=== PATIENT | female | born 1955 | race Caucasian/White ===

== ENCOUNTER 2023-07-13 10:22 | Emergency (ER) | payer MEDICARE, SELFPAY ==
[2023-07-13 10:35] VITALS: BP 135/73; PULSE 96; RESP 18; TEMP 36.9; O2SAT 94; BMI 31.5
--- NOTE | 2023-07-13 10:49 | XR_ITS ---
The [address] [address] Patient Name: ALYCE DAVID MRN: [id number] date: 1955 Sex: F Assigned Patient Location: ER Current Patient Location: ER Accession/Order Number: [id number] Exam Date: 07/13/2023 11:00 Report Date: 07/13/2023 11:57 At the request of: KELSEA SOSA Procedure: XR foot RT min 3V HISTORY: Pain and bruising of the right great toe since an injury 3 weeks ago. XR foot RT min 3V: 07/13/2023 11:00 AM EST COMPARISON: Radiographs right foot 02/22/2020 obtained at [facility]. FINDINGS: A hallux valgus deformity is again seen with mild osteoarthritis of the first MTP joint and first metatarsal-sesamoid joints. A large plantar calcaneal enthesophyte is again seen. 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 There is a large amount of soft tissue swelling of the first toe. However, no fracture or dislocation is seen. There appears to be probable dorsal lifting of the first toenail with probable underlying soft tissue gas in this region. There are moderate degenerative changes again seen at the calcaneocuboid joint. There is an accessory navicular bone again seen. XR/XR foot RT min 3V IMPRESSION: 1. There is a large amount of soft tissue swelling of the first toe, but no acute fracture or dislocation is seen. 2. There appears to be probable dorsal lifting of the first toenail with probable underlying soft tissue gas in this region and this is most likely secondary to an injury of the toenail, but correlation with physical examination is recommended. Electronically authenticated by: MIGUELANGEL TRAN Date: 07/13/2023 11:57
--- NOTE | 2023-07-13 10:49 | XR_ITS ---
[address] [address] Patient Name: ALYCE DAVID MRN: [id number] date: 1955 Sex: F Assigned Patient Location: ER Current Patient Location: ER Accession/Order Number: [id number] Exam Date: 07/13/2023 11:00 Report Date: 07/13/2023 11:55 At the request of: KELSEA SOSA Procedure: XR humerus RT EXAM: XR humerus RT INDICATION: fall. COMPARISON: None. TECHNIQUE: Left humerus, 2 views FINDINGS: No acute fracture or dislocation. Grossly intact left shoulder and left elbow joints. Unremarkable soft tissues. XR/XR humerus RT IMPRESSION: No acute osseous abnormality of the left humerus. Electronically authenticated by: WILSON MAYA Date: 07/13/2023 11:55
--- NOTE | 2023-07-13 10:49 | XR_ITS ---
The [address] [address] Patient Name: ALYCE DAVID MRN: [id number] date: 1955 Sex: F Assigned Patient Location: ER Current Patient Location: ER Accession/Order Number: [id number] Exam Date: 07/13/2023 11:00 Report Date: 07/13/2023 11:58 At the request of: KELSEA SOSA Procedure: XR shoulder LT min 2V EXAM: XR shoulder LT min 2V HISTORY: fall COMPARISON: None. TECHNIQUE: Internal rotation and external rotation and scapular Y radiographs of the shoulder labeled left FINDINGS: No acute fracture or dislocation. Mild degenerative changes of the acromioclavicular joint. Normal mineralization. XR/XR shoulder LT min 2V IMPRESSION: 1. No acute fracture or dislocation. 2. Mild acromioclavicular joint degenerative change. Electronically authenticated by: LAINA HARTLEY Date: 07/13/2023 11:58
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
[2023-07-13 11:05] LABS: Basophils Absolute Auto 0.1 10^3/uL (0.0-0.1); Basophils Percent Auto 1.2 % (0.2-2.0); Eosinophils Absolute Auto 0.1 10^3/uL (0.0-0.7); Eosinophils Percent Auto 2.2 % (0.9-7.0); Hematocrit 29.9 % (36.0-48.0); Hemoglobin 9.2 g/dL (12.0-16.0); Immature Granulocytes Abs Auto 0.03 10^3/uL (0.00-0.03); Immature Granulocytes Pct Auto 0.7 % (0.0-0.5); Lymphocytes Absolute Auto 0.9 10^3/uL (1.2-3.8); Lymphocytes Percent Auto 22.7 % (20.5-60.0); Mean Corpuscular HGB Conc 30.8 g/dL (29.9-35.2); Mean Corpuscular Hemoglobin 28.5 pg (26.7-34.0); Mean Corpuscular Volume 92.6 fL (81.0-99.0); Mean Platelet Volume 10.4 fL (9.5-13.5); Monocytes Absolute Auto 0.4 10^3/uL (0.3-0.8); Monocytes Percent Auto 8.5 % (1.7-12.0); Neutrophils Absolute Auto 2.7 10^3/uL (1.4-6.5); Neutrophils Percent Auto 64.7 % (43.0-75.0); Platelet Count 120 10^3/uL (150-450); Red Blood Count 3.23 10^6/uL (4.20-5.40); Red Cell Distribution Width 18.6 % (11.0-15.0); White Blood Count 4.1 10^3/uL (4.0-11.0)
[2023-07-13 11:12] LABS: Anion Gap 16.6; BUN Creatinine Ratio 19.5; Calcium 8.3 mg/dL (8.5-10.1); Carbon Dioxide 25.7 mmol/L (21.0-32.0); Chloride 103 mmol/L (98-107); Estimated GFR (African America >60 (>=60); Estimated GFR (Non-African Ame >60 (>=60); Glucose 160 mg/dL (74-106); Potassium 3.3 mmol/L (3.5-5.1); Sodium 142 mmol/L (136-145)
[2023-07-13 13:19] VITALS: BP 119/54; PULSE 82; RESP 22; O2SAT 93
== END 2023-07-13 12:42 | disposition home or self-care (01) ==
PROVIDERS: Emergency Provider Emergency Medicine
DX: L03.031 Cellulitis of right toe (principal)
CPT/HCPCS: 36415; 73030; 73060; 73630; 80048; 85025; 99284

== ENCOUNTER 2023-08-31 22:50 | Emergency (ER) | payer MEDICARE, SELFPAY ==
[2023-08-31 22:57] VITALS: BP 132/74; PULSE 71; RESP 16; TEMP 37; O2SAT 96; BMI 29.2
--- OUTSIDE RECORDS SUMMARY | 2023-08-31 23:01 | XMS_ITS | CCD ---
Author Name Unknown Address [address] [place] [address] Organization [facility] Care Team Providers Care Planner Chief Name Role Phone Unavailable Primary Care Provider AYSHA Mckeon Primary Care Physician MD Aysha Clements Primary Care Provider DO Remy Motley Emergency Provider MD Tye Subramanian Admit Provider MD Tye Subramanian Attending Provider Aysha Clements Primary Care Unavailable Tye Subramanian Admitting Unavailable Tye Subramanian Attending Unavailable Matthew Laird Attending Aysha Yip Primary Care Unavailable Matthew Laird Admitting Matthew Wall Attending Aysha Yip Primary Care Unavailable Emanuel Clark Consulting Unavailable Kirstie Scott Admitting Unavailable Dottie Cade Consulting Unavailable Liliana Willett Unavailable Allergies Allergy Classification Reported Allergen(s) Allergy Type Date of Onset Reaction(s) Facility (2 sources) amLODIPine; Translations: [amlodipine] Drug Allergy unknown [facility] Fredo (1 source) amLODIPine Drug Allergy 06-01-2022 [facility] Repository Medications Current Medications Medication Drug Class(es) Dates Sig (Normalized) Sig (Original) acetaminophen 325 mg oral tablet (4 sources) Start: 09-29-2021 take 650 mg by mouth every six hours Acetaminophen Active 650 MG PO Every 6 hours 0 September 29, 2021 12:00am take 2 tablets by mo ut every six hours as needed acetaminophen (TYLENOL) 325 mg tablet Ta ke 650 mg by mouth every 6 hours as needed. 0 Active Comment on above: Take 650 mg by mouth every 6 hours as needed. allopurinol 300 mg oral tablet (5 sources) Xanthine Oxidase Inhibitor Start: 09-28-2021 take 1 mg by mouth once daily allopurinol 300 mg Tab mg tab(s), Oral, Daily, Refills(s) 0 Start Date: 09/28/21 Status: Ordered Start: 03-24-2020 take 300 mg by mouth once yovani y Allopurinol Active 300 MG PO Daily March 23, 2020 11:00pm take 1 tablet by neo th once daily allopurinol (ZYLOPRIM) 100 mg tablet Take 100 mg by mouth once daily. 0 Active Comment on above: Take 100 mg by mouth once daily. Take 300 mg by mouth once daily. amoxicillin 875 mg / clavulanate 125 mg oral tablet (1 source) Penicillin-class Antibacterial Start: 2 take 1 tablet by mouth every twelve hours Augmentin 875 mg oral tablet = 1 tab(s), Oral, q12hr, # 2 tab(s), Refills(s) 0, Pharmacy: [address], 160, cm, 10/18/21 8:22:00 EDT, Height/Length Dosing, 77.2, kg, 10/18/21 8:22:00 EDT, Weight Dosing Start Date: 10/18/21 Status: Ordered atenolol 50 mg oral tablet (6 sources) beta-Adrenergic Lupe Start: 0 take 1 mg by mouth once daily atenolol 50 mg Tab mg tab(s), Oral, Daily, Refills(s) 0 Start Date: 09/28/21 Status: Ordered take 1 tablet by mouth once yovani y atenolol (TENORMIN) 100 mg tablet Take 100 mg by mouth once daily. 0 Active Comment on above: Take 50 mg by mouth once daily. Take 100 mg by mouth once daily. atorvastatin 40 mg oral tablet (3 sources) HMG-CoA Reductase Inhibitor Start: 020 take 1 mg by mouth once daily atorvastatin 40 mg Tab mg tab(s), Oral, Daily, Refills(s) 0 Start Date: 09/28/21 Status: Ordered cephalexin 500 mg oral capsule (1 source) Cephalosporin Antibacterial Start: take 1 capsule by mouth every eight hours Cephalexin 500 MG 1 capsule Orally tid for 10 day(s) Jul, Active cholecalciferol 0.01 mg oral tablet (1 source) Vitamin D Start: take 1 tablet by mouth twice daily at mealtime Cholecalciferol (Vitamin D3) (Vitamin D3) 10 mcg (400 unit) Tablet Active 20 MCG PO Twice daily with meals 120 September 29, 2021 12:00am doxepin hydrochloride 10 mg oral capsule (1 source) Tricyclic Antidepressant Start: take 10 mg by mouth once daily at bedtime Doxepin Active 10 MG PO Daily at bedtime June 01, 2022 12:00am ferrous sulfate 325 mg delayed release oral tablet (5 sources) Start: take 1 mg by mouth once daily ferrous sulfate 325 mg oral enteric coated tablet mg tab(s), Oral, Daily, Refills(s) 0 Start Date: 09/28/21 Status: Ordered Start: 03-24-2020 take 325 mg by mouth once Ferr ous Sulfate Active 325 MG PO every Friday, Friday, and Monday March 23, 2020 11:00pm Comment on above: Take 325 mg by mouth daily with breakfast. hydrOXYzine hydrochloride 25 mg oral tablet (6 sources) Antihistamine Start: 09-29-19 take 1 mg by mouth four times daily hydrOXYzine hydrochloride 25 mg Tab mg tab(s), Oral, QID, Refills(s) 0 Start Date: 09/28/21 Status: Ordered Start: 03-24-2020 take 25 mg by mouth three to four times daily Hydroxyzine Hcl Active 25 MG PO 3-4 TIMES DAILY March 23, 2020 11:00pm hydrOXYzine HCl 25 MG take 1 tablet by mouth every 8 to 12 hours if needed for anxiety Oral for 20 Active take 1 capsule by [facility] every eight hours as needed hydrOXYzine pamoate (VISTARIL) 25 mg capsule Take 25 mg by mouth three times daily as needed. 0 Active Comment on above: Take 25 mg by mouth three times daily as needed. ibuprofen 200 mg oral capsule (4 sources) Nonsteroidal Anti-inflammatory Drug Start: 03-24-2020 take 200 mg by mouth once daily Ibuprofen Active 200 MG PO Daily March 23, 2020 11:00pm Ibuprofen 200 mg cap Take by mouth every 6 hours as needed. 0 Active Comment on above: Take by mouth every 6 hours as needed. Iron (1 source) Iron Active levothyroxine sodium 0.125 mg oral tablet (1 source) l-Thyroxine take 1 tablet by mouth once daily in the morning Levothyroxine Sodium 125 MCG 1 tablet in the morning on an empty stomach Orally Once a day Active lisinopril 20 mg oral tablet (3 sources) Angiotensin Converting Enzyme Inhibitor Start: 09-29-19 take 1 tablet by mouth twice daily lisinopril 20 mg Tab 20 mg = 1 tab(s), Oral, BID, Refills(s) 0 Start Date: 09/28/21 Status: Ordered Start: 03-24-2020 End: 06-01-2022 take 1 tablet by mouth once daily in the morning, then take 0.5 tablet by mouth in the evening Lisinopril Discontinued 20 MG PO Twice daily March 23, 2020 11:00pm June 01, 2022 7:15am 1 tablet qam, 1/2 tab in pm magnesium oxide 400 mg oral tablet (5 sources) Start: 06-01-2022 take 400 mg by mouth twice daily Magnesium Oxide Active 400 MG PO Twice daily June 01, 2022 7:16am Start: 09-29-2021 End: 06-01-2022 take 400 mg by mouth once daily Magnesium Oxide Discontinued 400 MG PO Daily September 29, 2021 12:00am June 01, 2022 7:16am Comment on above: Take 400 mg by mouth once daily. omeprazole 20 mg delayed release oral capsule (1 source) Proton Pump Inhibitor take 1 capsule by mouth once daily Omeprazole 20 MG 1 capsule 30 minutes before morning meal Orally Once a day for 30 day(s) Active potassium chloride 20 meq extended release oral tablet (5 sources) Start: 06-01-2022 take 20 mEq by mouth once daily Potassium Chloride Active 20 MEQ PO Daily June 01, 2022 12:00am Start: 09-29-2021 End: 06-01-2022 take 8 mEq by mouth once daily Potassium Chloride Disc ontinued 8 MEQ PO Daily September 29, 2021 12:00am June 01, 2022 7:14am Comment on above: Take by mouth once d aily. Completed/Discontinued Medications Medication Drug Class(es) Dates Sig (Normalized) Sig (Original) acetaminophen 325 mg / HYDROcodone bitartrate 5 mg oral tablet (1 source) Opioid Agonist Start: 03-24-2020 End: 09-25-2021 take 1 tablet by mouth three times daily as needed for pain Hydrocodone-Acetam inophen Discontinued 5 - 325 TAB PO As Directed March 23, 2020 11:00pm September 25, 2021 9:23pm TID prn pain cholecalciferol, vitamin D3, (VITAMIN D3 ORAL) (3 sources) cholecalciferol, vitamin D3, (VITAMIN D3 ORAL) Take by mouth. 0 Active Comment on above: Take by mouth. doxycycline hyclate 100 mg oral capsule (2 sources) Tetracycline-class Drug Start: 10-15-2021 take 1 capsule by mouth twice daily doxycycline hyclate (VIBRAMYCIN) 100 mg capsule take 1 capsule by mouth twice a day for 7 days 0 10/15/2021 Active Comment on above: take 1 capsule by mo [facility] twice a day for 7 days guaifenesin/pseudoep hedrne HCl (MUCINEX D MAXIMUM STRENGTH ORAL) (1 source) guaifenesin/pseu do ephedrne HCl (MUCINEX D MAXIMUM STRENGTH ORAL) Take by mouth twice daily. 0 Active Comment on above: Take by mouth twice daily. hydrALAZINE hydrochloride 25 mg oral tablet (4 sources) Arteriolar Vasodilator Start: 09-29-2021 End: 06-01-2022 take 25 mg by mouth twice daily Hydralazine Discontinued 25 MG PO Twice daily 60 September 29, 2021 12:00am June 01, 2022 7:15am take 1 tablet by neo three times daily hydrALAZINE (APRESOLINE) 25 mg tablet Ta ke 25 mg by mouth three times daily. 0 Active Comment on above: Take 25 mg by mouth three times daily. hydroCHLOROthiazide 25 mg oral tablet (4 sources) Thiazide Diuretic Start: 022 End: 022 take 25 mg by mouth once daily Hydrochlorothiazide Discontinued 25 MG PO Daily September 25, 2021 12:00am September 29, 2021 1:01pm Comment on above: Take 25 mg by mouth once daily. 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 Deficiency and other anemia (2 sources) Normocytic anemia; Translations: [Anemia, unspecified] Episodic Deficiency and other anemia (2 sources) Anemia; Translations: [Anemia, unspecified] 09-28-2021 Episodic Diseases of white blood cells (1 source) Leukocytosis; Translations: [Elevated white blood cell count, unspecified] Chronic Disorders of lipid metabolism (1 source) Hypercholesterolemia 09-28-2021 Chronic Essential hypertension (1 source) Hypertensive disorder 09-28-2021 Chronic Fluid and electrolyte disorders (2 sources) Hypervolemia; Translations: [Fluid overload, unspecified] 09-25-2021 Episodic Gastritis and duodenitis (1 source) Atrophic gastritis; Translations: [Unspecified chronic gastritis without bleeding] Chronic Gout and other crystal arthropathies (1 source) Gout 09-28-2021 Chronic Mood disorders (2 sources) Depressive disorder; Translations: [Depression] 06-01-2022 Chronic Mood disorders (1 source) Mood disorders; Translations: [Depression, unspecified] Onset: 2 Other connective tissue disease (1 source) Muscle weakness of limb; Translations: [Other symptoms and signs involving the musculoskeletal system] 09-26-2021 Episodic Other connective tissue disease (1 source) Recurrent falls ; Translations: [Repeated falls] 09-26-2021 Episodic Other diseases of bladder and urethra (1 source) Bladder-neck obstruction; 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] Onset: 2 Chronic Other diseases of kidney and ureters (2 sources) Hydronephrosis; Translations: [Unspecified hydronephrosis] 09-28-2021 Episodic Other injuries and conditions due to external causes (1 source) Unspecified injury of right foot, sequela Episodic Other lower respiratory disease (1 source) Cough; Translations: [Cough] Episodic Other nervous system disorders (1 source) Difficulty walking; Translations: [Difficulty in walking, not elsewhere classified] 09-26-2021 Chronic Other nervous system disorders (1 source) Difficulty in walking, not elsewhere classified; Translations: [R26.2 - Difficulty in walking, not elsewhere classified] Onset: 2 Chronic Other nutritional; endocrine; and metabolic disorders (1 source) Body mass index 30+ - obesity 10-18-2021 Chronic Other nutritional; endocrine; and metabolic disorders (1 source) Hypomagnesemia; Translations: [Hypomagnesemia] 09-25-2021 Chronic Other nutritional; endocrine; and metabolic disorders (1 source) Hypocalcemia; Translations: [Hypocalcemia] 09-25-2021 Chronic Other nutritional; endocrine; and metabolic disorders (1 source) Hypomagnesemia; Translations: [E83.42 - Hypomagnesemia] Onset: 2 Chronic Other screening for suspected conditions (not mental disorders or infectious disease) (1 source) Prothrombin time increased; Translations: [Abnormal coagulation profile] Episodic Other skin disorders (1 source) Eruption; Translations: [Rash and other nonspecific skin eruption] Episodic Respiratory failure; insufficiency; arrest (adult) (1 source) Respiratory failure; insufficiency; arrest (adult); Translations: [N17.9 - Acute kidney failure, unspecified] Onset: 2 Skin and subcutaneous tissue infections (1 source) Local infection of the skin and subcutaneous tissue, unspecified Episodic Unclassified (1 source) E87.6 - Hypokalemia; Translations: [E87.6 - Hypokalemia] Onset: 2 Urinary tract infections (2 sources) Urinary tract infectious disease; Translations: [Urinary tract infection, site not specified] Onset: 2 Episodic Past or Other Problems Problem Classification Problem Date Documented Date Episodic/Chronic Acute and unspecified renal failure (2 sources) Injury of kidney; Translations: [Acute kidney failure, unspecified] Onset: 09-25-2021 09-27-2021 Episodic Deficiency and other anemia (1 source) Anemia, unspecified; Translations: [D64.9 - Anemia, unspecified] Onset: 10-09-2021 Episodic Genitourinary symptoms and ill-defined conditions (5 sources) Retention of urine; Translations: [Other retention of urine] Onset: 09-25-2021 Episodic Malaise and fatigue (2 sources) Asthenia; Translations: [Weakness] Onset: 09-25-2021 09-25-2021 Episodic Other connective tissue disease (1 source) Other symptoms and signs involving the musculoskeletal system; Translations: [R29.898 - Other symptoms and signs involving the musculoskeletal system] Onset: 09-25-2021 Episodic Other connective tissue disease (1 source) Repeated falls; Translations: [R29.6 - Repeated falls] Onset: 09-25-2021 Episodic Other diseases of kidney and ureters (1 source) Unspecified hydronephrosis; Translations: [N13.30 - Unspecified hydronephrosis] Onset: 09-25-2021 Episodic Results Test Name Value Interpretation Reference Range Facility Glucose - [facility] Glucose [Mass/Vol] 133 mg/dL [employer] Other Albumin [Mass/volume] in Ser um or PlasmaOrdered By: Remy Motley on 06-01-2022 Albumin [Mass/Vol] 3.8 g/dL 3.2-5.5 [facility] Amphetamine Screen Ql (U)Ord ered By: Remy Motley on 06-01-2022 Amphetamines Ql (U) Negative Negative [facility] Automated erythrocytes count in urine sediment (number/area)Ordered By: Remy Motley on 06-01-2022 RBC Auto (Urine sed) [#/Area] 0-1 [HPF] 0-4 [facility] Automated leukocytes count i n urine sediment (number/area)Ordered By: Remy Motley on 06-01-2022 WBC Auto (Urine sed) [#/Area] 3-4 [HPF] 0-4 [facility] Barbiturates [Presence] in U rineOrdered By: Remy Motley on 06-01-2022 Barbiturates Ql (U) Negative Negative [facility] Basophils Auto (Bld) [#/Vol] Ordered By: Remy Motley on 06-01-2022 Basophils (Bld) [#/Vol] 0.1 10*3/uL 0.0-0.2 [facility] Basophils/100 WBC Auto (Bld) Ordered By: Remy Tiesha on 06-01-2022 Basophils/100 WBC (Bld) 1.2 % . F [facility] Benzodiazepines [Presence] i n UrineOrdered By: Remy Tiesha on 06-01-2022 Benzodiazepines Ql (U) Negative Negative Fi [facility] Bilirubin Test strip Ql (U)O rdered By: Remy Tiesha on 06-01-2022 Bilirubin Ql (U) Negative Negative [facility] COVID-19 Antigenon 2 COVID-19 Antigen Healthcare Worker?: N Reference Range: Negative Negative results, from patients with symptom onset beyond five days, should be treated as presumptive and confirmation with a molecular assay, if necessary, for patient management, may be performed. Negative results do not rule out COVID-19 and should not be used as the sole basis for treatment or patient management decisions, including infection control decisions. Negative results should be considered in the context of a patient's recent exposures, history and the presence of clinical signs and symptoms consistent with COVID-19. The Kate SARS Antigen MY does not differentiate between SARS-CoV and SARS-CoV-2. This test was developed and its performance characteristic determined by [employer] and validated at [facility]. This test has not been FDA cleared or approved. This test has been authorized by FDA under an Emergency Use Authorization (EUA). This test has been validated in accordance with the FDA's Guidance Document (Policy for Diagnostics Testing in Laboratories Certified to Perform High Complexity Testing under CLIA prior to Emergency Use Authorization for Coronavirus Disease-2019 during the Public Health Emergency) issued on October 21, 2019. This test is only authorized for the duration of time the declaration that circumstances exist justifying the authorization of the emergency use of in vitro diagnostic tests for detection of SARS-CoV-2 virus and/or diagnosis of COVID-19 infection under section 564(b)(1) of the Act, 21 U.S.C. 360bbb-3(b)(1), unless the authorization is terminated or revoked sooner. SARS-CoV+SARS-CoV-2 (COVID-19) Ag [Presence] in Respiratory specimen by Rapid immunoassay Negative for SARS Antigen by MY PERFORMED BY: [place] [address] PATHOLOGIST ACCOUNTING PRACTICE MANAGER IDANIA WHITESIDE M.D. Normal [facility] Comment on above: Performed By: #### T SH3 wRFLX, T4F, LIPID, [id number] #### [facility] [address] [place] [address] [place] COVID-19 SOFIAOrdered By: Coleman Motley on 06-01-2022 SARS-CoV+SARS-CoV-2 (COVID-19) Ag IA.rapid Ql (Resp) Negative Negative [facility] Comment on above: This is a duplicate Kate SARS Antigen (MY) result to be used for statistical tracking purpose only. Cannabinoids [Presence] in U rine by Screen methodOrdered By: Remy Motley on 06-01-2022 Cannabinoids Screen Ql (U) Negative Negative [facility] Comment on above: These are unconfirme d results and should not be used for legal purposes. Drug Cut-Off Concentration: AMPH 1000 ng/mL NENITA 200 ng/mL SWETA 200 ng/mL COCM 300 ng/mL OP 300 ng/mL PCP 25 ng/mL THC 20 ng/mL Color Auto (U)Ordered By: Coleman Motley on 06-01-2022 Color (U) Yellow Yellow [facility] Complete Blood Count Auto Di ffon 06-01-2022 Basophils (Bld) [#/Vol] 0.1 10*3/uL Normal 0.0-0.2 [facility] Comment on above: Result Comment: PERF ORMED BY: [place] [address] PATHOLOGIST ACCOUNTING PRACTICE MANAGER IDANIA WHITESIDE M.D. Performed By: #### C OVID 19 [facility] [place] #### [place] [address] [place] Basophils/100 WBC (Bld) 1.2 % Normal . F [facility] Comment on above: Performed By: #### C OVID 19 [facility] [place] #### [place] [address] [place] Eosinophils (Bld) [#/Vol] 0.2 10*3/uL Normal 0.0-0.45 [facility] Comment on above: Performed By: #### C [address] #### [facility] [address] Eosinophils/100 WBC (Bld) 3.3 % Normal . [facility] Comment on above: Performed By: #### C [address] #### [address] Erythrocyte distribution width (RBC) [Ratio] 13.5 % Normal 11.9-15.3 [facility] Comment on above: Performed By: #### C [address] #### [address] Hematocrit (Bld) [Volume fraction] 38.3 % Normal 34.0-46.4 [facility] Comment on above: Performed By: #### C [address] #### [address] Hemoglobin (Bld) [Mass/Vol] 12.8 g/dL Normal 11.8-15.4 [facility] Comment on above: Performed By: #### C [address] #### [address] Lymphocytes (Bld) [#/Vol] 1.7 10*3/uL Normal 1.00-4.8 [facility] Comment on above: Performed By: #### C [address] #### [address] Lymphocytes/100 WBC (Bld) 32.3 % Normal . [facility] Comment on above: Performed By: #### C [address] #### [address] MCH (RBC) [Entitic mass] 32.8 pg Normal 24.7-34.3 [facility] Comment on above: Performed By: #### C [address] #### [address] MCV (RBC) [Entitic vol] 98.2 fL Normal 80-100 F [facility] Comment on above: Performed By: #### C [address] #### [facility] [address] Mean Corpuscular HGB Conc 33.4 g/dL Normal 32.0-35.0 [facility] Comment on above: Performed By: #### C [address] #### [facility] [address] [place] [address] [place] Monocytes (Bld) [#/Vol] 0.5 10*3/uL Normal 0.0-0.8 [facility] Comment on above: Performed By: #### C [address] #### [facility] [address] Monocytes/100 WBC (Bld) 9.6 % Normal . F [facility] Comment on above: Performed By: #### C [address] #### [facility] [address] Neutrophils (Bld) [#/Vol] 2.9 10*3/uL Normal 1.8-7.7 [facility] Comment on above: Performed By: #### C [address] #### [address] Neutrophils/100 WBC (Bld) 53.6 % Normal . [facility] Comment on above: Performed By: #### C [address] #### [facility] [address] [place] [address] [place] Nucleated RBC/100 WBC (Bld) [Ratio] 0.1 % Normal 0-0.5 [facility] Comment on above: Performed By: #### C [address] #### [facility] [address] Platelet mean volume (Bld) [Entitic vol] 7.6 fL Normal 6.3-10.7 [facility] Comment on above: Performed By: #### C [address] #### [facility] [address] [place] [address] [place] Platelets (Bld) [#/Vol] 179 10*3/uL Normal 150-450 [facility] Comment on above: Performed By: #### C [address] #### [facility] [address] RBC (Bld) [#/Vol] 3.90 10*6/uL Normal 3.60-5.00 [facility] Comment on above: Performed By: #### C [address] #### [facility] [address] WBC (Bld) [#/Vol] 5.4 10*3/uL Normal 4.5-11.0 [facility] Comment on above: Performed By: #### C [address] #### [address] Comprehensive Metabolic Pane huber 06-01-2022 Albumin [Mass/Vol] 3.8 g/dL Normal 3.2-5.5 [facility] Comment on above: Performed By: #### C [address] #### [facility] [address] [place], [place] [id number] [facility] Albumin/Globulin [Mass ratio] 1.1 {ratio} Normal [facility] Comment on above: Performed By: #### C [address] #### [facility] [address] [place] [address] ALP [Catalytic activity/Vol] 98 U/L High 32-92 [facility] Comment on above: Performed By: #### C [address] #### [facility] [address] [place], [place] [id number] [facility] ALT [Catalytic activity/Vol] 54 U/L Normal 10-60 [facility] Comment on above: Performed By: #### C [address] #### [address] Anion gap [Moles/Vol] 12.4 mmol/L Normal 6.0-15.0 [facility] Comment on above: Performed By: #### C [address] #### [address] [place] [address] [place] AST [Catalytic activity/Vol] 100 U/L High 10-42 [facility] Comment on above: Performed By: #### C OVID 19 [facility] [place] #### [facility] [address] Bilirubin [Mass/Vol] 0.6 mg/dL Normal 0.3-1.2 [facility] Comment on above: Performed By: #### C OVID 19 [facility] [place] #### [facility] [address] Calcium [Mass/Vol] 8.6 mg/dL Normal 8.2-10.2 [facility] Comment on above: Performed By: #### C CATSKILL 19 [facility] [place] #### [facility] [address] Chloride [Moles/Vol] 100 mmol/L Normal 95-114 [facility] Comment on above: Performed By: #### C OVID 19 [facility] [place] #### [facility] [address] CO2 [Moles/Vol] 23.8 mmol/L Normal 22.0-30.0 [facility] Comment on above: Performed By: #### C [address] #### [facility] [address] Creatinine [Mass/Vol] 0.70 mg/dL Normal 0.44-1.03 [facility] Comment on above: Performed By: #### C OVID 19 [facility] [place] #### [facility] [address] [place] [address] [place] Creatinine Clr Calc Pharmacy 71.02 [facility] Comment on above: Result Comment: PERF ORMED BY: [place] [address] PATHOLOGIST ACCOUNTING PRACTICE MANAGER IDANIA WHITESIDE M.D. Performed By: #### C OVID 19 [facility] [place] #### [place] [address] [place] Estimated GFR ( Radha > 60 Normal [facility] Comment on above: Result Comment: GFR estimated reference range: According to KDOQI guidelines, <60 ml/min/1.73m2 is sufficient to diagnose a patient with chronic kidney disease. Performed By: #### C CATSKILL 19 [facility] [place] #### [facility] [address] Estimated GFR (Non- Am > 60 Normal [facility] Comment on above: Performed By: #### C CATSKILL 19 [facility] [place] #### [facility] [address] [place] [id number] [facility] Globulin (S) [Mass/Vol] 3.4 g/dL Normal F [facility] Comment on above: Performed By: #### C CATSKILL 19 [facility] [place] #### [address] Glucose [Mass/Vol] 138 mg/dL High 70-100 [facility] Comment on above: Result Comment: [place] Glucose Reference Range is dependent on time and content of last meal. Glucose of more than 200 mg/dL in a nonstressed, ambulatory subject supports the diagnosis of Diabetes Mellitus. ADA recommended reference range Performed By: #### C CATSKILL 19 [facility] [place] #### [place] [id number] [facility] Potassium [Moles/Vol] 4.2 mmol/L Normal 3.5-5.1 [facility] Comment on above: Performed By: #### C CATSKILL 19 [facility] [place] #### [place] [id number] [facility] Protein [Mass/Vol] 7.2 g/dL Normal 6.1-7.9 [facility] Comment on above: Performed By: #### C CATSKILL 19 [facility] [place] #### [place] [id number] [facility] Sodium [Moles/Vol] 132 mmol/L Low 136-146 [facility] Comment on above: Performed By: #### C CATSKILL 19 [facility] [place] #### [facility] [address] [place] [id number] [facility] Urea nitrogen [Mass/Vol] 22 mg/dL Normal 9-23 [facility] Comment on above: Performed By: #### C CATSKILL 19 [facility] #### [facility] [address] [place] [address] [place] Creatinine and Glomerular fi ltration rate.predicted panel (S/P/Bld)Ordered By: Remy Motley on 06-01-2022 Creatinine [Mass/Vol] 0.70 mg/dL 0.44-1.03 [facility] Dipstick and Microscopicon 1 08-01-2021 Appearance (U) Clear Normal Clear [facility] Comment on above: Order Comment: Comme nt use ed blood Comment us ed blood Performed By: #### T SH3 wRFLX, T4F, LIPID, [id number] #### [facility] [address] Bacteria,Urine None Seen Normal None Seen [facility] Comment on above: Order Comment: Comme nt use ed blood Comment us ed blood Performed By: #### T SH3 wRFLX, T4F, LIPID, [id number] #### [facility] [address] Bilirubin,Urine Negative Normal Negative [facility] Comment on above: Order Comment: Comme nt use ed blood Comment us ed blood Performed By: #### T SH3 wRFLX, T4F, LIPID, [id number] #### [facility] [address] Color (U) Yellow Normal Yellow [facility] Comment on above: Order Comment: Comme nt use ed blood Comment us ed blood Performed By: #### T SH3 wRFLX, T4F, LIPID, [id number] #### [facility] [address] Glucose Ql (U) Normal Normal Normal [facility] Comment on above: Order Comment: Comme nt use ed blood Comment us ed blood Performed By: #### T SH3 wRFLX, T4F, LIPID, [id number] #### [facility] [address] Hyaline Casts,Urine 0-8 Normal 0-8 [facility] Comment on above: Order Comment: Comme nt use ed blood Comment us ed blood Result Comment: PERF ORMED BY: [place] [address] PATHOLOGIST ACCOUNTING PRACTICE MANAGER IDANIA WHITESIDE M.D. Performed By: #### T SH3 wRFLX, T4F, LIPID, [id number] #### [facility] [address] [place] [address] Ketones Ql (U) Negative Normal Negative [facility] Comment on above: Order Comment: Comme nt use ed blood Comment us ed blood Performed By: #### T SH3 wRFLX, T4F, LIPID, [id number] #### [facility] [address] [place] [address] Leukocyte esterase Test strip Ql (U) 3+ High Negative [facility] Comment on above: Order Comment: Comme nt use ed blood Comment us ed blood Performed By: #### T SH3 wRFLX, T4F, LIPID, [id number] #### [facility] [address] [place] [address] Nitrite,Urine Negative Normal Negative [facility] Comment on above: Order Comment: Comme nt use ed blood Comment us ed blood Performed By: #### T SH3 wRFLX, T4F, LIPID, [id number] #### [facility] [address] [place] [address] [place] Occult Blood,Urine Negative Normal Negative [facility] Comment on above: Order Comment: Comme nt use ed blood Comment us ed blood Result Comment: PERF ORMED BY: [place] [address] PATHOLOGIST ACCOUNTING PRACTICE MANAGER IDANIA WHITESIDE M.D. Performed By: #### T SH3 wRFLX, T4F, LIPID, [id number] #### [facility] [address] [place], [place] [id number] [place] pH (U) 6.5 [pH] Normal 5.0-9.0 [facility] Comment on above: Order Comment: Comme nt use ed blood Comment us ed blood Performed By: #### T SH3 wRFLX, T4F, LIPID, [id number] #### [facility] [address] [place] [address] [place] Protein,Urine Negative Normal Negative [facility] Comment on above: Order Comment: Comme nt use ed blood Comment us ed blood Performed By: #### T SH3 wRFLX, T4F, LIPID, [id number] #### [facility] [address] RBC LM.HPF (Urine sed) [#/Area] 0 /[HPF] Normal 0-4 [facility] Comment on above: Order Comment: Comme nt use ed blood Comment us ed blood Performed By: #### T SH3 wRFLX, T4F, LIPID, [id number] #### [facility] [address] Specificy [place],Urine 1.005 Normal 1.001-1.030 [facility] Comment on above: Order Comment: Comme nt use ed blood Comment us ed blood Performed By: #### T SH3 wRFLX, T4F, LIPID, [id number] #### [facility] [address] [place] [address] Squamous Epithelial Cell,Urine 0-1 Normal 0-2 [facility] Comment on above: Order Comment: Comme nt use ed blood Comment us ed blood Performed By: #### T SH3 wRFLX, T4F, LIPID, [id number] #### [facility] [address] [place] [address] Urobilinogen,Urine Normal Normal Normal [facility] Comment on above: Order Comment: Comme nt use ed blood Comment us ed blood Performed By: #### T SH3 wRFLX, T4F, LIPID, [id number] #### [facility] [address] [place] [address] [place] WBC,Urine 3-4 Normal 0-4 [facility] Comment on above: Order Comment: Comme nt use ed blood Comment us ed blood Performed By: #### T SH3 wRFLX, T4F, LIPID, [id number] #### [facility] [address] [place] [address] [place] Drug Screen,Urineon 06-01-20 22 Amphetamine Screen,Urine Negative Normal Negative [facility] Comment on above: Performed By: #### T SH3 wRFLX, T4F, LIPID, [id number] #### [facility] [address] [place] [address] Barbiturate Screen,Urine Negative Normal Negative [facility] Comment on above: Performed By: #### T SH3 wRFLX, T4F, LIPID, [id number] #### [facility] [address] [place] [address] Benzodiazepines Screen,Urine Negative Normal Negative [facility] Comment on above: Performed By: #### T SH3 wRFLX, T4F, LIPID, [id number] #### [address] Cannabinoid Screen,Urine Negative Normal Negative [facility] Comment on above: Result Comment: Thes e are unconfirmed results and should not be used for legal purposes. Drug Cut-Off Concentration: AMPH 1000 ng/mL NENITA 200 ng/mL SWETA 200 ng/mL COCM 300 ng/mL OP 300 ng/mL PCP 25 ng/mL THC 20 ng/mL PERFORMED BY: [place] [address] PATHOLOGIST ACCOUNTING PRACTICE MANAGER IDANIA WHITESIDE M.D. Performed By: #### T SH3 wRFLX, T4F, LIPID, [id number] #### [address] Cocaine Screen,Urine Negative Normal Negative [facility] Comment on above: Performed By: #### T SH3 wRFLX, T4F, LIPID, [id number] #### [place] [address] [place] Opiate Screen,Urine Negative Normal Negative [facility] Comment on above: Performed By: #### T SH3 wRFLX, T4F, LIPID, [id number] #### [address] Phencyclidine Screen,Urine Negative Normal Negative [facility] Comment on above: Performed By: #### T SH3 wRFLX, T4F, LIPID, [id number] #### [address] ECG 12 lead ECGon 06-01-2022 ECG 12 lead ECG [facility] [place] [address] [place] [address] Electrocardiograph Report Signed Patient: Alyce David MR#: [id number] : 1955 Acct:[id number] Age/Sex: 66 / F ADM Date: 06/01/22 Loc: Room: [address] [place] [address] Type: DIS IN Attending Dr: Tye Subramanian MD Ordering Provider: Tye Subramanian MD Date of Service: 06/01/2207/11/1323 ECG/ECG 12 lead ECG: baseline for antipsychotics Copies to: Test Reason : Blood Pressure : / mmHG Vent. Rate : 086 BPM Atrial Rate : 086 BPM P-R Int : 166 ms QRS Dur : 078 ms QT Int : 368 ms P-R-T Axes : 066 007 039 degrees QTc Int : 440 ms Normal sinus rhythm Septal infarct , age undetermined Abnormal ECG When compared with ECG of 26-SEP-2021 08:56, Septal infarct is now present Confirmed by CAIT CIFUENTES [facility] ([id number][facility] on 06/02/2022 4:04:05 PM Referred By: Electronically Signed By:SHARLENE FUENTES MD [facility] Transcribed By: MUS Signed By Ivan Fuentes MD 06/02/22 1604 Normal [facility] Eosinophils Auto (Bld) [#/Vo l]Ordered By: Remy Motley on 06-01-2022 Eosinophils (Bld) [#/Vol] 0.2 10*3/uL 0.0-0.45 [facility] Eosinophils/100 WBC Auto (Bl d)Ordered By: Remy Motley on 06-01-2022 Eosinophils/100 WBC (Bld) 3.3 % . [facility] Erythrocyte distribution wid th Auto (RBC) [Ratio]Ordered By: Remy Motley on 06-01-2022 Erythrocyte distribution width (RBC) [Ratio] 13.5 % 11.9-15.3 [facility] Estimated glomerular filtrat ion rate (GFR) non- AmericanOrdered By: Remy Motley on 06-01-2022 GFR/1.73 sq M.predicted among non-blacks MDRD (S/P/Bld) [Vol rate/Area] > 60 mL/Min [facility] Ethyl Alcohol Profileon 05-21 Ethanol [Mass/Vol] 268 mg/dL Normal [facility] Comment on above: Performed By: #### C OVID 19 [facility] [place] #### [facility] [address] Percent Ethanol 0.268 % Normal [facility] Comment on above: Result Comment: PERF ORMED BY: [place] [address] PATHOLOGIST ACCOUNTING PRACTICE MANAGER IDANIA WHITESIDE M.D. Performed By: #### C OVID 19 [facility] [place] #### [address] Free T4 (Free Thyroxine)on 08-01-2021 Free T4 [Mass/Vol] 0.71 ng/dL Normal 0.61-1.12 [facility] Comment on above: Order Comment: Comme nt use ed blood Comment ed blood Performed By: #### T SH3 wRFLX, T4F, LIPID, [id number] #### [address] Globulin Calc (S) [Mass/Vol] Ordered By: Remy Motley on 06-01-2022 Globulin (S) [Mass/Vol] 3.4 g/dL F [facility] HCG ( test) IA.rapi d Ql (U)Ordered By: Remy Motley on 06-01-2022 HCG ( test) Ql (U) Negative [facility] HCG,Urineon 06-01-2022 Beta HCG ( test) Ql (U) Negative Normal [facility] Comment on above: Result Comment: PERF ORMED BY: [place] [address] PATHOLOGIST ACCOUNTING PRACTICE MANAGER IDANIA WHITESIDE M.D. Performed By: #### C K, ESR, BMP, CRP #### [facility] [address] [place] [address] #### MYOG, ALDOLASE #### [facility] , Hematocrit Auto (Bld) [Volum e fraction]Ordered By: Remy Motley on 06-01-2022 Hematocrit (Bld) [Volume fraction] 38.3 % 34.0-46.4 [facility] Hemoglobin [Mass/volume] in BloodOrdered By: Remy Motley on 06-01-2022 Hemoglobin (Bld) [Mass/Vol] 12.8 g/dL 11.8-15.4 [facility] Ketones Auto test strip (U) [Mass/Vol]Ordered By: Remy Motley on 06-01-2022 Ketones (U) [Mass/Vol] Negative Negative [facility] Laboratory - Drug toxicology Ordered By: Remy Motley on 06-01-2022 Opiates Ql (U) Negative Negative [facility] Laboratory - Hematology and Cell countsOrdered By: Remy Motley on 06-01-2022 Nucleated RBC/100 WBC (Bld) [Ratio] 0.1 % 0-0.5 [facility] Laboratory - UrinalysisOrder ed By: Remy Motley on 06-01-2022 Hyaline casts LM Ql (Urine sed) 0-8 [LPF] 0-8 [facility] Leukocytes [#/volume] in Blo od by Automated countOrdered By: Remy Motley on 06-01-2022 WBC (Bld) [#/Vol] 5.4 10*3/uL 4.5-11.0 [facility] Lipid Panelon 06-01-2022 Cholesterol [Mass/Vol] 188 mg/dL Normal 140-200 [facility] Comment on above: Order Comment: Comme nt use ed blood Comment us ed blood Result Comment: Chol less than 200 mg/dl low risk Chol 201-239 mg/dl borderline risk Chol 240 mg/dl and greater high risk Performed By: #### T SH3 wRFLX, T4F, LIPID, [id number] #### [facility] [address] Cholesterol in HDL [Mass/Vol] 38 mg/dL Normal 35-85 [facility] Comment on above: Order Comment: Comme nt use ed blood Comment us ed blood Result Comment: HDL CHOL ATP-III CLASSIFICATION Cardiovascular Risk HDL > or equal to 60 mg/dL LOW HDL < 40 mg/dL HIGH Performed By: #### T SH3 wRFLX, T4F, LIPID, [id number] #### [facility] [address] Cholesterol.total/Judith sterol in HDL [Mass ratio] 4.9 {ratio} Normal <5.0 [facility] Comment on above: Order Comment: Comme nt use ed blood Comment us ed blood Performed By: #### T SH3 wRFLX, T4F, LIPID, [id number] #### [facility] [address] LDL Cholesterol,Calculated 83 mg/dL Normal 0-100 [facility] Comment on above: Order Comment: Comme nt use ed blood Comment us ed blood Result Comment: LDL ATP III CLASSIFICATION LDL less than 100 mg/dL Optimal LDL 100-129 mg/dL Near or above optimal LDL 130-159 mg/dL Borderline high LDL 160-189 mg/dL High LDL greater than 189 mg/dL Very high Performed By: #### T SH3 wRFLX, T4F, LIPID, [id number] #### [facility] [address] Triglyceride w/Reflex 335 mg/dL High 35-149 [facility] Comment on above: Order Comment: Comme nt use ed blood Comment us ed blood Result Comment: TRIG ATP III CLASSIFICATION TRIG less than 150 mg/dL Normal TRIG 150-199 mg/dL Borderline high TRIG 200-500 mg/dL High TRIG greater than 500 mg/dL Very high Standard traceable to the Center for Disease Conrtrol and Prevention (CDC) test method. Performed By: #### T SH3 wRFLX, T4F, LIPID, [id number] #### [facility] [address] VLDL CHOLESTEROL 67 mg/dL Normal [facility] Comment on above: Order Comment: Comme nt use ed blood Comment us ed blood Performed By: #### T SH3 wRFLX, T4F, LIPID, [id number] #### [facility] [address] Lymphocytes Auto (Bld) [#/Vo l]Ordered By: Remy Motley on 06-01-2022 Lymphocytes (Bld) [#/Vol] 1.7 10*3/uL 1.00-4.8 [facility] Lymphocytes/100 WBC Auto (Bl d)Ordered By: Remy Motley on 06-01-2022 Lymphocytes/100 WBC (Bld) 32.3 % . [facility] MCH Auto (RBC) [Entitic mass ]Ordered By: Remy Motley on 06-01-2022 MCH (RBC) [Entitic mass] 32.8 pg 24.7-34.3 [facility] MCHC Auto (RBC) [Mass/Vol]Or dered By: Remy Motley on 06-01-2022 MCHC (RBC) [Mass/Vol] 33.4 g/dL 32.0-35.0 [facility] MCV Auto (RBC) [Entitic vol] Ordered By: Remy Motley on 06-01-2022 MCV (RBC) [Entitic vol] 98.2 fL 80-100 F [facility] Monocytes Auto (Bld) [#/Vol] Ordered By: Remy Motley on 06-01-2022 Monocytes (Bld) [#/Vol] 0.5 10*3/uL 0.0-0.8 [facility] Monocytes/100 WBC Auto (Bld) Ordered By: Remy Motley on 06-01-2022 Monocytes/100 WBC (Bld) 9.6 % . F [facility] Neutrophils Auto (Bld) [#/Vo l]Ordered By: Remy Motley on 06-01-2022 Neutrophils (Bld) [#/Vol] 2.9 10*3/uL 1.8-7.7 [facility] Neutrophils/100 WBC Auto (Bl d)Ordered By: Remy Motley on 06-01-2022 Neutrophils/100 WBC (Bld) 53.6 % . [facility] Nitrite Test strip Ql (U)Ord ered By: Remy Motley on 06-01-2022 Nitrite Ql (U) Negative Negative [facility] No Panel InformationOrdered By: Remy Motley on 06-01-2022 Estimated GFR () > 60 mL/Min [facility] Comment on above: GFR estimated refere nce range: According to KDOQI guidelines, <60 ml/min/1.73m2 is sufficient to diagnose a patient with chronic kidney disease. Pharmacy Creatinine Clearance (Chem 71.02 [facility] SARS Antigen (LFIA) [facility] Phencyclidine Screen Ql (U)O rdered By: Remy Motley on 06-01-2022 Phencyclidine Ql (U) Negative Negative [facility] Platelet mean volume Auto (B ld) [Entitic vol]Ordered By: Remy Motley on 06-01-2022 Platelet mean volume (Bld) [Entitic vol] 7.6 fL 6.3-10.7 [facility] Platelets Auto (Bld) [#/Vol] Ordered By: Remy Motley on 06-01-2022 Platelets (Bld) [#/Vol] 179 10*3/uL 150-450 [facility] Protein Auto test strip (U) [Mass/Vol]Ordered By: Remy Motley on 06-01-2022 Protein (U) [Mass/Vol] Negative Negative Fi [facility] Protein [Mass/volume] in Ser um or PlasmaOrdered By: Remy Motley on 06-01-2022 Protein [Mass/Vol] 7.2 g/dL 6.1-7.9 [facility] RBC Auto (Bld) [#/Vol]Ordere d By: Remy Motley on 06-01-2022 RBC (Bld) [#/Vol] 3.90 10*6/uL 3.60-5.00 [facility] Serum or plasma alanine willson otransferase measurement without P-5'-P (enzymatic activiOrdered By: Remy Motley on 06-01-2022 ALT No additional P-5'-P [Catalytic activity/Vol] 54 U/L 10-60 [facility] Serum or plasma albumin/glob ulin mass ratioOrdered By: Remy Motley on 06-01-2022 Albumin/Globulin [Mass ratio] 1.1 {ratio} [facility] Serum or plasma alkaline manny sphatase measurement (enzymatic activity/volume)Ordered By: Remy Motley on 06-01-2022 ALP [Catalytic activity/Vol] 98 U/L 32-92 [facility] Serum or plasma anion gap de terminationOrdered By: Remy Motley on 06-01-2022 Anion gap [Moles/Vol] 12.4 mmol/L 6.0-15.0 [facility] Serum or plasma aspartate am inotransferase measurement (enzymatic activity/volume)Ordered By: Remy Motley on 06-01-2022 AST [Catalytic activity/Vol] 100 U/L 10-42 [facility] Serum or plasma calcium juan ramon urement (mass/volume)Ordered By: Remy Motley on 06-01-2022 Calcium [Mass/Vol] 8.6 mg/dL 8.2-10.2 [facility] Serum or plasma chloride adebayo surement (moles/volume)Ordered By: Remy Motley on 06-01-2022 Chloride [Moles/Vol] 100 mmol/L 95-114 [facility] Serum or plasma ethanol juan ramon urement (mass/volume)Ordered By: Remy Motley on 06-01-2022 Ethanol [Mass/Vol] 268 mg/dL [facility] Ethanol [Mass/Vol] 0.268 % [facility] Serum or plasma glucose juan ramon urement (mass/volume)Ordered By: Remy Motley on 06-01-2022 Glucose [Mass/Vol] 138 mg/dL 70-100 [facility] Comment on above: ADA recommended refe rence rangeRandom Glucose Reference Range is dependent on time and content of last meal. Glucose of more than 200 mg/dL in a nonstressed, ambulatory subject supports the diagnosis of Diabetes Mellitus. Serum or plasma potassium me asurement (moles/volume)Ordered By: Remy Motley on 06-01-2022 Potassium [Moles/Vol] 4.2 mmol/L 3.5-5.1 [facility] Serum or plasma sodium measu rement (moles/volume)Ordered By: Remy Motley on 06-01-2022 Sodium [Moles/Vol] 132 mmol/L 136-146 [facility] Serum or plasma total biliru bin measurement (mass/volume)Ordered By: Remy Motley on 06-01-2022 Bilirubin [Mass/Vol] 0.6 mg/dL 0.3-1.2 [facility] Serum or plasma total carbon dioxide measurement (moles/volume)Ordered By: Remy Motley on 06-01-2022 CO2 [Moles/Vol] 23.8 mmol/L 22.0-30.0 [facility] Serum or plasma urea nitroge n measurement (mass/volume)Ordered By: Remy Motley on 06-01-2022 Urea nitrogen [Mass/Vol] 22 mg/dL 04-12 [facility] Kate Ag Negativeon 06-01-20 Kate Ag Negative Negative Normal Negative [facility] Comment on above: Result Comment: This is a duplicate Kate SARS Antigen (MY) result to be used for statistical tracking purpose only. PERFORMED BY: [place] [address] PATHOLOGIST ACCOUNTING PRACTICE MANAGER IDANIA WHITESIDE M.D. Performed By: #### T SH3 wRFLX, T4F, LIPID, [id number] #### [facility] [address] [place] [address] Specific gravity Auto test s trip (U) [Rel density]Ordered By: Remy Motley on 06-01-2022 Specific gravity (U) [Rel density] 1.005 1.001-1.030 [facility] Squamous epithelial cells de tection in urine sediment by light microscopyOrdered By: Remy Motley on 06-01-2022 Epithelial cells.squamous LM Ql (Urine sed) 0-1 [HPF] 0-2 [facility] Thyroid Stim Hormone w/Rflxo n 06-01-2022 Thyroid Stim Hormone w/Rflx 14.64 u[iU]/mL High 0.45-5.33 [facility] Comment on above: Order Comment: Comme nt use ed blood Comment us ed blood Performed By: #### T SH3 wRFLX, T4F, LIPID, [id number] #### [facility] [address] Urine bacteria detection by automated methodOrdered By: Remy Motley on 06-01-2022 Bacteria Auto Ql (U) None seen None Seen [facility] Urine clarity by refractomet ry automatedOrdered By: Remy Motley on 06-01-2022 Clarity Refractometry automated (U) Clear Clear [facility] Urine cocaine detectionOrder ed By: Remy Motley on 06-01-2022 Cocaine Ql (U) Negative Negative [facility] Urine glucose measurement by automated test strip (mass/volume)Ordered By: Remy Motley on 06-01-2022 Glucose Auto test strip (U) [Mass/Vol] Normal mg/dL Normal [facility] Urine hemoglobin detection b y automated test stripOrdered By: Remy Motley on 06-01-2022 Hemoglobin Auto test strip Ql (U) Negative Negative [facility] Urine leukocyte esterase det ection by automated test stripOrdered By: Remy Motley on 06-01-2022 Leukocyte esterase Auto test strip Ql (U) 3+ Negative [facility] Urobilinogen Auto test strip (U) [Mass/Vol]Ordered By: Remy Motley on 06-01-2022 Urobilinogen (U) [Mass/Vol] Normal mg/dL Normal [facility] Vitamin D 25 Hydroxy Totalon 06-01-2022 Vitamin D 25 Hydroxy Total 24.2 ng/mL Low 30-100 [facility] Comment on above: Order Comment: Comme nt use ed blood Comment us ed blood Result Comment: MALDONADO MIN D STATUS 25(OH)VITAMIN D RANGE (ng/mL) Deficient <20 Insufficient 20 to <30 Sufficient 30 to 100 Reference: Bandar MF,Cara NC, Marissa NICHOLAS, et al. Evaluation,treatment, and prevention of vitamin D deficiency; an Endocrine Society clinical practice guideline. JCEM. 2010; 96(7):1911-30. PERFORMED BY: [place] [address] PATHOLOGIST ACCOUNTING PRACTICE MANAGER IDANIA WHITESIDE M.D. Performed By: #### C K, ESR, BMP, CRP #### [place] [address] [place] #### MYOG, ALDOLASE #### [facility] , pH Auto test strip (U)Ordere d By: Remy Motley on 06-01-2022 pH (U) 6.5 [pH] 5.0-9.0 [facility] Ambulatory Visit Summaryon 0 11-15-2021 Ambulatory Visit Summary ALYCE DAVID :1955 Visit Date:11/15/2021 Ambulatory Visit Instructions Your Diagnosis Urinary retention UTI (urinary tract infection) Tests Performed Urnls Dip Stick Auto w/o Microscopy POC 46529 Your Care Team Attending Physician - Dottie Cade MD Primary Care Physician - AYSHA DE PAZ MD This Is Your Medications List allopurinol (allopurinol 300 mg Tab) amoxicillin-clavulana te (Augmentin 875 mg oral tablet) atenolol (atenolol 50 mg Tab) atorvastatin (atorvastatin 40 mg Tab) ferrous sulfate (ferrous sulfate 325 mg oral enteric coated tablet) hydrOXYzine (hydrOXYzine hydrochloride 25 mg Tab) hydrochlorothiazide (hydrochlorothiazide 25 mg oral tablet) lisinopril (lisinopril 20 mg Tab) Procedures Performed section, Colonoscopy. Discharge Vitals Height 160 cm Height 160.0 cm Weight 77.2 kg Weight 77.2 kg BMI 30.16 What to do next You Need to Schedule the Following Appointments Follow Up with Rayo CIFUENTES, Dottie Ellis, LOYDA, URO When: Only if needed Where: Medications What How Much When Instructions Unchanged allopurinol (allopurinol 300 mg Tab) By Mouth Every day Unchanged amoxicillin-clavulana te (Augmentin 875 mg oral tablet) 1 Tablets By Mouth Every 12 hours Unchanged atenolol (atenolol 50 mg Tab) By Mouth Every day Unchanged atorvastatin (atorvastatin 40 mg Tab) By Mouth Every day Unchanged ferrous sulfate (ferrous sulfate 325 mg oral enteric coated tablet) By Mouth Every day Unchanged hydrochlorothiazide (hydrochlorothiazide 25 mg oral tablet) By Mouth Every day Unchanged hydrOXYzine (hydrOXYzine hydrochloride 25 mg Tab) By Mouth 4 times a day Unchanged lisinopril (lisinopril 20 mg Tab) 1 Tablets By Mouth 2 times a day Test Results Urnls Dip Stick Auto w/o Microscopy POC 70427 (11/15/2021) Bilirubin Urine Dipstick - Negative Blood Urine Dipstick - Negative Glucose Urine Dipstick - Negative Ketones Urine Dipstick - Negative Leukocytes Urine Dipstick - Trace Nitrite Urine Dipstick - Negative Protein Urine Dipstick - Negative Specific [place] Urine Dipstick - 1.020 Urine Appearance Urine Dipstick - Clear Urine Color Urine Dipstick - Yellow Urobilinogen Urine Dipstick - Normal 0.2-1 EU/dl pH Urine Dipstick - 5.5 Medications and Immunizations Administered Not Given SARS-CoV-2 (COVID-19) Ad26 vaccine, Postpone due to refusal Allergies amLODIPine (unknown) Problems Ongoing - Any problem that you are currently receiving treatment for. Anemia BMI 30.0-30.9,adult Gout Hematuria Hydronephrosis, left Hypercholesteremia Hypertension Urinary retention UTI (urinary tract infection) Normal [facility] Patient Educationon 11-16-19 Patient Education Obstetrics and Gynecology Acute Urinary Retention, Female Acute urinary retention is a condition in which a person is unable to pass urine. This can last for a short time or for a long time. If left untreated, it can result in kidney damage or other serious complications. What are the causes? This condition may be caused by: ? Obstruction or narrowing of the tube that drains the bladder (urethra). This may be caused by surgery or problems with nearby organs, which can press or squeeze the urethra. ? Problems with the nerves in the bladder. These can be caused by diseases, such as multiple sclerosis, or by spinal cord injuries. ? Certain medicines. ? Tumors in the area of the pelvis, bladder, or urethra. ? Degenerative cognitive conditions such as delirium or dementia. ? Diabetes. ? Vaginal childbirth. ? Bladder or urinary tract infection. ? Constipation. ? Blood in the urine (hematuria). ? Injury to the bladder or urethra. ? Psychological (psychogenic) conditions. Someone may hold her urine due to trauma or because she does not want to use the bathroom. What are the signs or symptoms? Symptoms of this condition include: ? Trouble urinating. ? Pain in the lower abdomen. How is this diagnosed? This condition is diagnosed based on a physical exam and a medical history. You may also have other tests, including: ? An ultrasound of the bladder or kidneys or both. ? Blood tests. ? A urine analysis. ? Additional tests may be needed such as an MRI, kidney, or bladder function tests. How is this treated? Treatment for this condition may include: ? Medicines. ? Placing a thin, sterile tube (catheter) into the bladder to drain urine out of the body. This is called an indwelling urinary catheter. After being inserted, the catheter is held in place with a small balloon that is filled with sterile water. Urine drains from the catheter into a collection bag outside of the body. ? Behavioral therapy. ? Treatment for any underlying conditions. ? If needed, you may be treated in the hospital for kidney function problems or to manage other complications. Follow these instructions at home: ? Take zceu-eez-mfvsdjz and prescription medicines only as told by your health care provider. Avoid certain medicines, such as decongestants, antihistamines, and some prescription medicines. Do not take any medicine unless your health care provider has approved. ? If you were given an indwelling urinary catheter, take care of it as told by your health care provider. ? Drink enough fluid to keep your urine clear or pale yellow. ? If you were prescribed an antibiotic, take it as told by your health care provider. Do not stop taking the antibiotic even if you start to feel better. ? Do not use any products that contain nicotine or tobacco, such as cigarettes and e-cigarettes. If you need help quitting, ask your health care provider. ? Monitor any changes in your symptoms. Tell your health care provider about any changes. ? If instructed, monitor your blood pressure at home. Report changes as told by your health care provider. ? Keep all follow-up visits as told by your health care provider. This is important. Contact a health care provider if: ? You have uncomfortable bladder contractions that you cannot control (spasms) or you leak urine with the spasms. Get help right away if: ? You have chills or fever. ? You have blood in your urine. ? You have a catheter and: ? Your catheter stops draining urine. ? Your catheter falls out. Summary ? Acute urinary retention is a condition in which a person is unable to pass urine. If left untreated, it can result in kidney damage or other serious complications. ? This condition may be caused by surgery or problems with nearby organs, which can press or squeeze the urethra. ? Treatment may include medicines and placement of an indwelling urinary catheter. ? Monitor any changes in your symptoms. Tell your health care provider about any changes. This information is not intended to replace advice given to you by your health care provider. Make sure you discuss any questions you have with your health care provider. Document Released: 07/06/2007 Document Revised: 06/19/2018 Document Reviewed: 08/08/2017 scroll kit Patient Education ? 2019 [employer] [facility] [address] [facility] Urology Office/Clinic Noteon 11-15-2021 Urology Office/Clinic Note Chief Complaint 1 month f/u HPI Staff Alyce is a 66 y/o female here for a 1 month f/u. Previous DX: Hematuria, hydronephrosis, urinary retention, UTIs. Pt was unable to answer the questions. Pt wears a depends but is really confused and very confused. Pt states she just goes when she has to go. PVR today was 110mL. History of Present Illness Reviewed UA Pt has no associated symptoms, no fever, no chills, no flank pain. I have reviewed the previous health record information and history for this patient from Dr. Cade Review of Systems ROS - Provider Constitutional: denies weight loss, denies hot flashes. Eyes: denies eye problems. Gastrointestinal: denies nausea, denies vomiting. Cardiovascular: denies chest pain or angina. Integumentary: no dryness Musculoskeletal: denies musculoskeletal symptoms. ENMT: denies otolaryngeal symptoms. Respiratory: no shortness of breath. Heme/Lymph: denies easy bleeding tendency, denies easy bruising tendency. Psychiatric: no confusion, no anxiety. Genitourinary: denies vaginal discharge, denies incontinence, denies dysuria, denies hematuria, denies urinary frequency, denies amenorrhea, denies menorrhagia, denies abnormal bleeding, denies pelvic pain, denies genital sores, and denies decreased libido. Physical Exam Vitals & Measurements HT: 160 cm HT: 160.0 cm WT: 77.2 kg WT: 77.2 kg BMI: 30.16 General Appearance: alert , no acute distress, well nourished, well developed female. Genitourinary: bladder nonpalpable, no flank pain. Assessment/Plan 1. Urinary retention (R33.9: Retention of urine, unspecified) Pt has no urinary symptoms at this time. Patient to start timed voids q2-3h during waking hours whether the urge to void is present or not. Advises pt to add fiber to her diet and increase fluids. PVR-110, says she didn't empty completely. Hx of retention. Declined other workup or follow up, denies urinary issues. Strongly encouraged timed voiding. Follow up as needed as she declined scheduled f/u 2. UTI (urinary tract infection) (N39.0: Urinary tract infection, site not specified) Hx of UTI and serrano x 1. UA shows trace leuks, no infection. Pt has no UTI symptoms at this time. Advised increased fluid intake and timed voiding. Denies issues at this time Follow-up With When Contact Information Rayo CIFUENTES, Dottie Ellis, URL, URO Only if needed Additional Instructions: Patient Education Acute Urinary Retention, Female Julio Chavez personally scribed for Dr. Cade 11/15/2021 11:54:21. . Documentation recorded by the tomibJulio mendoza , accurately reflects the services(s) I performed and decisions made by me. Authenticated by Dr. Cade on 11/15/2021 12:03:15. Problem List/Past Medical History Ongoing Anemia BMI 30.0-30.9,adult Gout Hematuria Hydronephrosis, left Hypercholesteremia Hypertension Urinary retention UTI (urinary tract infection) Historical No qualifying data Procedure/Surgical History section, Colonoscopy. Medications allopurinol 300 mg Tab, Oral, Daily, Unable to obtain atenolol 50 mg Tab, Oral, Daily, Unable to obtain atorvastatin 40 mg Tab, Oral, Daily, Unable to obtain Augmentin 875 mg oral tablet, 1 tab(s), Oral, q12hr, Unable to obtain ferrous sulfate 325 mg oral enteric coated tablet, Oral, Daily, Unable to obtain hydrochlorothiazide 25 mg oral tablet, Oral, Daily, Unable to obtain hydrOXYzine hydrochloride 25 mg Tab, Oral, QID, Unable to obtain lisinopril 20 mg Tab, 20 mg= 1 tab(s), Oral, BID, Unable to obtain Allergies amLODIPine (unknown) Social History Tobacco Former smoker, quit more than 30 days ago Tobacco Use:., 10/18/2021 Immunizations Vaccine Date Status Comments SARS-CoV-2 (COVID-19) Ad26 vaccine - Not Given Postpone due to refusal Lab Results Ambulatory Point of Care Results Bilirubin Urine Dipstick: Negative (11/15/21 11:06:00) Blood Urine Dipstick: Negative (11/15/21 11:06:00) Glucose Urine Dipstick: Negative (11/15/21 11:06:00) Ketones Urine Dipstick: Negative (11/15/21 11:06:00) Leukocytes Urine Dipstick: Trace (11/15/21 11:06:00) Nitrite Urine Dipstick: Negative (11/15/21 11:06:00) Protein Urine Dipstick: Negative (11/15/21 11:06:00) Specific [place] Urine Dipstick: 1.020 (11/15/21 11:06:00) Urine Appearance Urine Dipstick: Clear (11/15/21 11:06:00) Urine Color Urine Dipstick: Yellow (11/15/21 11:06:00) Urobilinogen Urine Dipstick: Normal 0.2-1 EU/dl (11/15/21 11:06:00) pH Urine Dipstick: 5.5 (11/15/21 11:06:00) Diagnostic Results Tests Reviewed: Reviewed UA. Normal [facility] Comment on above: Result Comment: Elec tronically Signed By: Dottie Cade MD\.br\Date and Time Signed: 11/15/21 12:03 EDT\.br\Electronically Co-Signed By: Julio Slade\.br\Date and Time Co-Signed: 11/15/21 11:54 EDT CBC W Auto Differential pane l (Bld)on 10-30-2021 Basophils (Bld) [#/Vol] 0.12 10*3/uL High <0.11 [facility] Comment on above: Order Comment: Speci men Type: BLOOD SPECIMEN Ordering Facility: [facility] Address: [address] [place] [id number] Performed By: #### M PNP #### [facility] CLIA [id number] [address] [place] [address] [id number] [place] [address] [place] #### [id number] #### [facility] CLIA [id number] [address] [place] [address] Basophils/100 WBC (Bld) 1.1 % Normal C [facility] Comment on above: Order Comment: Speci men Type: BLOOD SPECIMEN Ordering Facility: [facility] Address: [address] [place] [address] Performed By: #### M PNP #### [facility] CLIA [id number] [address] [place] [address] OF [place] #### [id number] #### [facility] CLIA [id number] [address] [place] [address] Differential cell count method Nom (Bld) Auto Normal [facility] Comment on above: Order Comment: Speci men Type: BLOOD SPECIMEN Ordering Facility: [facility] Address: [address] [place] [address] Performed By: #### M PNP #### [facility] CLIA [id number] [address] [place] [address] [place] #### [id number] #### [facility] CLIA [id number] [address] [place] [address] Eosinophils (Bld) [#/Vol] 0.51 10*3/uL High <0.46 [facility] Comment on above: Order Comment: Speci men Type: BLOOD SPECIMEN Ordering Facility: [facility] Address: [address] [place], [place] [address] Performed By: #### M PNP #### [facility] CLIA [id number] [address] [place] [address] [place] #### [id number] #### [facility] CLIA [id number] [address] [place] [address] Eosinophils/100 WBC (Bld) 4.6 % Normal [facility] Comment on above: Order Comment: Speci men Type: BLOOD SPECIMEN Ordering Facility: [facility] Address: [address] [place], [place] [address] Performed By: #### M PNP #### [facility] CLIA [id number] [address] [place] [address] [place] #### [id number] #### [facility] CLIA [id number] [address] [place] [address] Erythrocyte distribution width (RBC) [Ratio] 14.9 % Normal 11.5-15.0 [facility] Comment on above: Order Comment: Speci men Type: BLOOD SPECIMEN Ordering Facility: [facility] Address: [address] [place] [address] Performed By: #### M PNP #### [facility] CLIA [id number] [address] [place] [address] #### [id number] #### [facility] CLIA [id number] [address] [place], [place] [id number] Hematocrit (Bld) [Volume fraction] 34.1 % Low 36.0-46.0 [facility] Comment on above: Order Comment: Speci men Type: BLOOD SPECIMEN Ordering Facility: [facility] Address: [address] [place] [address] Performed By: #### M PNP #### [facility] CLIA [id number] [address] [place] [address] [place] #### [id number] #### [facility] CLIA [id number] [address] [place] [address] Hemoglobin (Bld) [Mass/Vol] 10.8 g/dL Low 11.5-15.5 [facility] Comment on above: Order Comment: Speci men Type: BLOOD SPECIMEN Ordering Facility: [facility] Address: [address] [place] [address] Performed By: #### M PNP #### [facility] CLIA [id number] [address] [place] [address] [place] #### [id number] #### [facility] CLIA [id number] [address] [place] [address] IMMATURE GRAN % 1.2 % Normal [facility] Comment on above: Order Comment: Speci men Type: BLOOD SPECIMEN Ordering Facility: [facility] Address: [address] [place] [address] Performed By: #### M PNP #### [facility] CLIA [id number] [address] [place] [address] #### [id number] #### [facility] CLIA [id number] [address] [place] [address] IMMATURE GRAN ABS 0.13 k/uL High <0.10 [facility] Comment on above: Order Comment: Speci men Type: BLOOD SPECIMEN Ordering Facility: [facility] Address: [address] [place] [address] Performed By: #### M PNP #### [facility] CLIA [id number] [address] [place] [address] [place] #### [id number] #### [facility] CLIA [id number] [address] [place] [address] Lymphocytes (Bld) [#/Vol] 2.03 10*3/uL Normal 1.00-4.00 [facility] Comment on above: Order Comment: Speci men Type: BLOOD SPECIMEN Ordering Facility: [facility] Address: [address] [place] [address] Performed By: #### M PNP #### [facility] CLIA [id number] [address] [place] [address] OF [place] #### 77081-5 #### [facility] CLIA [id number] [address] [place] [address] Lymphocytes/100 WBC (Bld) 18.2 % Normal [facility] Comment on above: Order Comment: Speci men Type: BLOOD SPECIMEN Ordering Facility: [facility] Address: [address] [place] [address] Performed By: #### M PNP #### [facility] CLIA [id number] [address] [place] [address] #### [id number] #### [facility] CLIA [id number] [address] [place] [address]42 MCH (RBC) [Entitic mass] 30.3 pg Normal 26.0-34.0 [facility] Comment on above: Order Comment: Speci men Type: BLOOD SPECIMEN Ordering Facility: [facility] Address: [address] [place], [place] [address] Performed By: #### M PNP #### [facility] CLIA [id number] [address] [place] [address] #### [id number] #### [facility] CLIA [id number] [address] [place] [address]45 MCHC (RBC) [Mass/Vol] 31.7 g/dL Normal 30.5-36.0 [facility] Comment on above: Order Comment: Speci men Type: BLOOD SPECIMEN Ordering Facility: [facility] Address: [address] [place] [address] Performed By: #### M PNP #### [facility] CLIA [id number] [address] [place] [address] #### [id number] #### [facility] CLIA [id number] [address] [place] [address]6982 MCV (RBC) [Entitic vol] 95.5 fL Normal 80.0-100.0 C [facility] Comment on above: Order Comment: Speci men Type: BLOOD SPECIMEN Ordering Facility: [facility] Address: [address] [place], [place] [address] Performed By: #### M PNP #### [facility] CLIA [id number] [address] [place] [address] [place] #### [id number] #### [facility] CLIA [id number] [address] [place] [address]18 Monocytes (Bld) [#/Vol] 0.86 10*3/uL Normal <0.87 [facility] Comment on above: Order Comment: Speci men Type: BLOOD SPECIMEN Ordering Facility: [facility] Address: [address] [place] [address] Performed By: #### M PNP #### [facility] CLIA [id number] [address] [place] [address] [place] #### 53638-2 #### [facility] CLIA [id number] [address] [place] [address]198 Monocytes/100 WBC (Bld) 7.7 % Normal [facility] Comment on above: Order Comment: Speci men Type: BLOOD SPECIMEN Ordering Facility: [facility] Address: [address] [place], [place] [address] Performed By: #### M PNP #### [facility] CLIA [id number] [address] [place] [address] [place] #### 30807-0 #### [facility] CLIA [id number] [address] [place] [address]181 Neutrophils (Bld) [#/Vol] 7.50 10*3/uL Normal 1.45-7.50 [facility] Comment on above: Order Comment: Speci men Type: BLOOD SPECIMEN Ordering Facility: [facility] Address: [address] [place] [address] Performed By: #### M PNP #### [facility] CLIA [id number] [address] [place] [address] [place] #### 85163-1 #### [facility] CLIA [id number] [address] [place] [address]3916 Neutrophils/100 WBC (Bld) 67.2 % Normal [facility] Comment on above: Order Comment: Speci men Type: BLOOD SPECIMEN Ordering Facility: [facility] Address: [address] [place] [address] Performed By: #### M PNP #### [facility] CLIA [id number] [address] [place] [address] [place] #### [id number] #### [facility] CLIA [id number] [address] [place] [address]362 Nucleated RBC (Bld) [#/Vol] 10*3/uL Normal <0.01 [facility] Comment on above: Order Comment: Speci men Type: BLOOD SPECIMEN Ordering Facility: [facility] Address: [address] [place], [place] [address] Performed By: #### M PNP #### [facility] CLIA [id number] [address] [place] [address] [place] #### 02760-6 #### [facility] CLIA [id number] [address] [place] [address]7848 Nucleated RBC/100 WBC (Bld) [Ratio] 0.0 /100 WBC Normal [facility] Comment on above: Order Comment: Speci men Type: BLOOD SPECIMEN Ordering Facility: [facility] Address: [address] [place] [address] Performed By: #### M PNP #### [facility] CLIA [id number] [address] [place] [address] [place] #### [id number] #### [facility] CLIA [id number] [address] [place] [address] 96164 Platelet mean volume (Bld) [Entitic vol] 9.0 fL Normal 9.0-12.7 [facility] Comment on above: Order Comment: Speci men Type: BLOOD SPECIMEN Ordering Facility: [facility] Address: [address] [place], [place] [address] Performed By: #### M PNP #### [facility] CLIA [id number] [address] [place] [address] [place] #### 44925-6 #### [facility] CLIA [id number] [address] [place] [address] 50225 Platelets (Bld) [#/Vol] 336 10*3/uL Normal 150-400 [facility] Comment on above: Order Comment: Speci men Type: BLOOD SPECIMEN Ordering Facility: [facility] Address: [address] [place], [place] [address] Performed By: #### M PNP #### [facility] CLIA [id number] [address] [place] [address] OF [place] #### 40987-2 #### [facility] CLIA [id number] [address] [place] [address] 27022 RBC (Bld) [#/Vol] 3.57 10*6/uL Low 3.90-5.20 [facility] Comment on above: Order Comment: Speci men Type: BLOOD SPECIMEN Ordering Facility: [facility] Address: [address] [place], [place] [address] Performed By: #### M PNP #### [facility] CLIA [id number] [address] [place] [address] [place] #### 47548-3 #### [facility] CLIA [id number] [address] [place] [address] 92103 WBC (Bld) [#/Vol] 11.15 10*3/uL High 3.70-11.00 [facility] Comment on above: Order Comment: Speci men Type: BLOOD SPECIMEN Ordering Facility: [facility] Address: [address] [place], [place] [address] Performed By: #### M PNP #### [facility] CLIA [id number] [address] [place] [place] [id number] [place] #### 84338-6 #### [facility] CLIA [id number] [address] [place] [address] 46045 Abs Immature Gran 0.13 k/uL High <0.10 k/uL [facility] Basophils (Bld) [#/Vol] 0.12 10*3/uL High <0.11 k/uL [facility] Basophils/100 WBC (Bld) 1.1 % C [facility] Differential cell count method Nom (Bld) Auto [facility] Eosinophils (Bld) [#/Vol] 0.51 10*3/uL High <0.46 k/uL [facility] Eosinophils/100 WBC (Bld) 4.6 % [facility] Erythrocyte distribution width (RBC) [Ratio] 14.9 % 11.5 - 15.0 % [facility] Hematocrit (Bld) [Volume fraction] 34.1 % Low 36.0 - 46.0 % [facility] Hemoglobin (Bld) [Mass/Vol] 10.8 g/dL Low 11.5 - 15.5 g/dL [facility] Immature Gran % 1.2 % [facility] Lymphocytes (Bld) [#/Vol] 2.03 10*3/uL 1.00 - 4.00 k/uL [facility] Lymphocytes/100 WBC (Bld) 18.2 % [facility] MCH (RBC) [Entitic mass] 30.3 pg 26.0 - 34.0 pg [facility] MCHC (RBC) [Mass/Vol] 31.7 g/dL 30.5 - 36.0 g/dL [facility] MCV (RBC) [Entitic vol] 95.5 fL 80.0 - 100.0 fL [facility] Monocytes (Bld) [#/Vol] 0.86 10*3/uL <0.87 k/uL [facility] Monocytes/100 WBC (Bld) 7.7 % C [facility] Neutrophils (Bld) [#/Vol] 7.50 10*3/uL 1.45 - 7.50 k/uL [facility] Neutrophils/100 WBC (Bld) 67.2 % [facility] Nucleated RBC (Bld) [#/Vol] 10*3/uL <0.01 k/uL [facility] Nucleated RBC/100 WBC (Bld) [Ratio] 0.0 /100 WBC [facility] Platelet mean volume (Bld) [Entitic vol] 9.0 fL 9.0 - 12.7 fL [facility] Platelets (Bld) [#/Vol] 336 10*3/uL 150 - 400 k/uL [facility] RBC (Bld) [#/Vol] 3.57 10*6/uL Low 3.90 - 5.2 0 m/uL [facility] WBC (Bld) [#/Vol] 11.15 10*3/uL High 3.70 - 11.00 k/uL [facility] CNOVSPon 10-30-2021 CNOVSP Visit (SP) Office ([place]) AYLCE DAVID ([id number]) 1955 F Date Time Provider Department 10/30/21 10:30 AM CARL PATEL During your visit today, we recorded the following information about you: Temperature Pulse Respiration Blood pressure 98.6 degrees 90/minute 20/minute 132/67 Height 1.62 m Carl Patel MD 10/30/2021 11:29 AM Signed HEMATOLOGY FOLLOW UP Elements in this clinic note that are critical to medical decision making have been carefully reviewed and included from my prior clinic note dated: October 16, 2021 October 30, 2021 PCP and other physicians involved in patient's care: Aysha Clements (PCP), Emanuel Clark (neurology), Dottie Cade (urology), Justin Gonzalez (GI) DIAGNOSIS: Anemia of chronic disease HEMATOLOGICAL HISTORY: ? She was prescribed oral iron thrice a week in for anemia. I do not have iron values from that time. EGD and colonoscopy in March 2020 was notable for chronic gastritis. H. pylori was negative. Recommendation was to follow up in 10 years. No previous transfusion history. ? Referred to me in September 2021 for hemoglobin ranging from 9?10 g/dL noted during [facility] [place] (presented with proximal muscle weakness, urinary retention and inability to walk). Her serum iron was noted to be low at 28 and she received 3 doses of intravenous iron. Other notable labs include iron saturation 9%, TIBC 300, ferritin 669 (pre-infusions), CRP 4.1 and ESR 45. Neurology work-up pending. CT abdomen showed fatty liver. Stool without occult blood ? October 16, 2021 CBC shows hemoglobin 9.9 g/dL with MCV 95; reticulocyte production index 1.5, low; haptoglobin 276, CRP 1.5, ESR 55, ferritin 1150, B12 604, iron 48, TIBC 310, saturation 15%; no M protein INTERVAL HISTORY: Alyce comes for follow-up. She continues to struggle with her neurologic issues. She also has a rash on the upper extremities that is itching. She has not seen a [facility]. She is here to follow-up with a neurologist. She comes back to discuss her lab results. ROS is negative except that mentioned in HPI PAST MEDICAL SURGICAL FAMILY AND SOCIAL HISTORY: She has a history of ?Hypertension ?Hyperlipidemia ?Undiagnosed ?myopathy ?Chronic anemia without improvement on oral iron, likely related to underlying neuromuscular disorder She has a 25 pack year smoking history and quit in 2012. Family history significant for lung cancer in her sister and most of her siblings are from cancer. She lives alone in [place], [place] but now has her son for help. MEDICATIONS AND ALLERGIES: Reviewed PHYSICAL EXAM BP 132/67 Pulse 90 Temp 37 ?C (98.6 ?F) (Temporal) Resp 20 Ht 162 cm (5' 3.78 ) SpO2 91% BMI 29.38 kg/m? Using a walker to ambulate, power 4/5 in hip girdle, multiple skin eruptions with secondary excoriations, tachycardia but no wheezing on lung exam, abdomen soft LABORATORY, IMAGING AND PATHOLOGY CBC shows hemoglobin 9.9 g/dL with MCV 95 Normal WBC and platelets Reticulocyte production index 1.5, low Haptoglobin 276, CRP 1.5, ESR 55 Ferritin 1150, B12 604, iron 48, TIBC 310, saturation 15% No M protein ASSESSMENT AND RECOMMENDATIONS 58 female with normocytic anemia Based on the lab work at last visit, patient likely has anemia of chronic inflammation. Her inflammatory markers are elevated. She is awaiting additional neurological work-up for myopathy or dermatomyositis (elevated myoglobin, normal CK and aldolase, skin eruptions). Treating the underlying disorder will likely result in improvement of anemia. I have encouraged her to follow-up with her neurologist to complete the work-up. Referral to [facility] for inflammatory skin rash. XR chest was notable for mild diffuse interstitial infiltrates. Cough is improving. If it worsens, will consider CT chest in the future. Follow-up in 4 weeks with repeat labs. Carl Patel MD I spent a total of 25 minutes on the date of the service which included preparing to see the patient, [id number] patient care, completing clinical documentation, obtaining and/or reviewing separately obtained history, performing a medically appropriate examination, counseling and educating the patient/family/caregi patti, ordering medications, tests, or procedures, independently interpreting results (not separately reported) and communicating results to the patient/family/caregi patti. Maricarmen Kebede MA 10/30/2021 11:02 AM Signed Patient was recently in the [facility] due to Anemia. CHRIS Zimmerman MD 10/30/2021 12:21 PM Signed Addended by: CARL PATEL on: 10/30/2021 12:21 PM Modules accepted: Orders Referring Provider: CARL PATEL [[id number]] Allergies As of Date: 10/30/2021 (No Known Allergies) Date Reviewed: 10/30/2021 Reviewed by: Maricramen Kebede MA - (more content not included)... Normal [facility] 10[facility]30[facility]20[facility] ALYCE DAVID ([id number]) 1955 F Date Time Provider Department 10/30/21 CARL PATEL During your visit today, we recorded the following information about you: Rosa Marin Sec 10/30/2021 11:34 AM Signed Alyce is being referred to [facility] for skin rash. Mikaela, Please fax records to their office for referral. They will call the patient to schedule. Info printed in your mailbox for faxing. Thank you!! Corinna Yu [facility] 10/30/2021 1:05 PM Signed Records faxed to [facility]. Kimber Singh Pss 10/31/2021 12:25 PM Signed Called [facility] spoke with Nuria. She states they have received patient records/referral and have patient scheduled to see Dr Van on 11/20 @ 9:50. Kimber Singh Pss Allergies As of Date: 10/30/2021 (No Known Allergies) Date Reviewed: 10/30/2021 Reviewed by: Maricarmen Kebede MA - Fully Assessed Reason for Visit: Future Appointment [256] Prescriptions as of 11/01/2021 - guaifenesin/pseudoeph edrne HCl (MUCINEX D MAXIMUM STRENGTH ORAL) Take by mouth twice daily. - doxycycline hyclate (VIBRAMYCIN) 100 mg capsule take 1 capsule by mouth twice a day for 7 days - hydroCHLOROthiazide (HYDRODIURIL, ESIDRIX) 25 mg tablet Take 25 mg by mouth once daily. - acetaminophen (TYLENOL) 325 mg tablet Take 650 mg by mouth every 6 hours as needed. - cholecalciferol, vitamin D3, (VITAMIN D3 ORAL) Take by mouth. - magnesium oxide (MAG-OX) 400 mg (241.3 mg magnesium) tablet Take 400 mg by mouth once daily. - potassium chloride SR (MICRO-K) 8 mEq cpER Take by mouth once daily. - hydrALAZINE (APRESOLINE) 25 mg tablet Take 25 mg by mouth three times daily. - allopurinol (ZYLOPRIM) 300 mg tablet Take 300 mg by mouth once daily. - ferrous sulfate 325 mg (65 mg iron) tablet Take 325 mg by mouth daily with breakfast. - hydrOXYzine pamoate (VISTARIL) 25 mg capsule Take 25 mg by mouth three times daily as needed. - atenolol (TENORMIN) 100 mg tablet Take 100 mg by mouth once daily. - Ibuprofen 200 mg cap Take by mouth every 6 hours as needed. Problem List As Of Date: 10/30/2021 (None) Encounter Status:Closed by ROSA PRETTY on 11/01/21 Normal [facility] Comprehensive metabolic 2000 panelon 10-30-2021 Albumin [Mass/Vol] 4.0 g/dL Normal 3.9-4.9 [facility] Comment on above: Order Comment: Speci men Type: BLOOD SPECIMEN Ordering Facility: [facility] Address: [address] [place] [address] Performed By: #### K LFRS #### [facility] CLIA [id number] [address] [place] [address] [place] ALP [Catalytic activity/Vol] 106 U/L Normal 34-123 [facility] Comment on above: Order Comment: Speci men Type: BLOOD SPECIMEN Ordering Facility: [facility] Address: [address] [place] [address] Performed By: #### K LFRS #### [facility] CLIA [id number] [address] [place] [address] [place] ALT [Catalytic activity/Vol] 24 U/L Normal 7-38 [facility] Comment on above: Order Comment: Speci men Type: BLOOD SPECIMEN Ordering Facility: [facility] Address: [address] [place], [place] [address] Performed By: #### K LFRS #### [facility] CLIA [id number] [address] [place] [address] [place] Anion gap [Moles/Vol] 9 mmol/L Normal 9-18 [facility] Comment on above: Order Comment: Speci men Type: BLOOD SPECIMEN Ordering Facility: [facility] Address: [address] [place], [place] [address] Performed By: #### K LFRS #### [facility] CLIA [id number] [address] [id number] [address] [place] AST [Catalytic activity/Vol] 20 U/L Normal 13-35 [facility] Comment on above: Order Comment: Speci men Type: BLOOD SPECIMEN Ordering Facility: [facility] Address: [address] [place], [place] [address] Performed By: #### K LFRS #### [facility] CLIA [id number] [address] [place] [address] [place] Bilirubin [Mass/Vol] 0.2 mg/dL Normal 0.2-1.3 [facility] Comment on above: Order Comment: Speci men Type: BLOOD SPECIMEN Ordering Facility: [facility] Address: [address] [place], [place] [address] Performed By: #### K LFRS #### [facility] CLIA [id number] [address] [place] [address] [place] Calcium [Mass/Vol] 9.7 mg/dL Normal 8.5-10.2 [facility] Comment on above: Order Comment: Speci men Type: BLOOD SPECIMEN Ordering Facility: [facility] Address: [address] [place], [place] [address] Performed By: #### K LFRS #### [facility] CLIA [id number] [address] [place] [address] [place] Chloride [Moles/Vol] 100 mmol/L Normal 97-105 [facility] Comment on above: Order Comment: Speci men Type: BLOOD SPECIMEN Ordering Facility: [facility] Address: [address] [place], [place] [id number] Performed By: #### K LFRS #### [facility] CLIA [id number] [address] [place] [address] [place] CO2 [Moles/Vol] 27 mmol/L Normal 22-30 [facility] Comment on above: Order Comment: Speci men Type: BLOOD SPECIMEN Ordering Facility: [facility] Address: [address] [place], [place] [address] Performed By: #### K LFRS #### [facility] CLIA [id number] [address] [place] [address] [place] Creatinine [Mass/Vol] 0.61 mg/dL Normal 0.58-0.96 [facility] Comment on above: Order Comment: Romeo men Type: BLOOD SPECIMEN Ordering Facility: [facility] Address: [address] [place] [address] Performed By: #### K LFRS #### [facility] CLIA [id number] [address] [place] [address] [place] ESTIMATED GLOMERULAR FILTRATION RATE 98 mL/min/1.73m??? Normal >=60 [facility] Comment on above: Order Comment: Romeo vasquez Type: BLOOD SPECIMEN Ordering Facility: [facility] Address: [address] [place] [address] Result Comment: Christelle mated Glomerular Filtration Rate (eGFR) is calculated using the 2020 CKD-EPI creatinine equation. This equation utilizes serum creatinine, sex, and age as parameters. The creatinine assay has traceable calibration to isotope dilution-mass spectrometry. Refer to KDIGO guidelines for clinical interpretation. In patients with unstable renal function, e.g. those with acute kidney injury, the eGFR may not accurately reflect actual GFR. Performed By: #### K LFRS #### [facility] CLIA [id number] [address] [place] [address] [place] Glucose [Mass/Vol] 106 mg/dL High 74-99 [facility] Comment on above: Order Comment: Speci pedro Type: BLOOD SPECIMEN Ordering Facility: [facility] Address: [address] [place], [place] [address] Result Comment: The [place] Diabetes Association (ADA) provides guidance for cutoff values for fasting glucose and random glucose. The ADA defines fasting as no caloric intake for at least 8 hours. Fasting plasma glucose results between 100 to 125 mg/dL indicate increased risk for diabetes (prediabetes). Fasting plasma glucose results greater than or equal to 126 mg/dL meet the criteria for diagnosis of diabetes. In the absence of unequivocal hyperglycemia, results should be confirmed by repeat testing. In a patient with classic symptoms of hyperglycemia or hyperglycemic crisis, random plasma glucose results greater than or equal to 200 mg/dL meet the criteria for diagnosis of diabetes. Reference: Standards of Medical Care in Diabetes 2016, [place] Diabetes Association. Diabetes Care. 2016.39(Suppl 1). Performed By: #### K LFRS #### [facility] CLIA [id number] [address] [place] [address] [place] Potassium [Moles/Vol] 3.8 mmol/L Normal 3.7-5.1 [facility] Comment on above: Order Comment: Speci men Type: BLOOD SPECIMEN Ordering Facility: [facility] Address: [address] [place] [address] Performed By: #### K LFRS #### [facility] CLIA [id number] [address] [place] [address] [place] Protein [Mass/Vol] 6.8 g/dL Normal 6.3-8.0 [facility] Comment on above: Order Comment: Speci men Type: BLOOD SPECIMEN Ordering Facility: [facility] Address: [address] [place] [address] Performed By: #### K LFRS #### [facility] CLIA [id number] [address] [place] [address] [place] Sodium [Moles/Vol] 136 mmol/L Normal 136-144 [facility] Comment on above: Order Comment: Speci men Type: BLOOD SPECIMEN Ordering Facility: [facility] Address: [address] [place] [address] Performed By: #### K LFRS #### [facility] CLIA [id number] [address] [place] [address] [place] Urea nitrogen [Mass/Vol] 14 mg/dL Normal 7-21 [facility] Comment on above: Order Comment: Speci men Type: BLOOD SPECIMEN Ordering Facility: [facility] Address: [address] [place] [phone] Performed By: #### K LFRS #### [facility] CLIA [id number] [address] [place], [place] [address] [place] [address] [place] [facility] Albumin [Mass/Vol] 4.0 g/dL 3.9 - 4.9 g/dL [facility] ALP [Catalytic activity/Vol] 106 U/L 34 - 123 U/L [facility] ALT [Catalytic activity/Vol] 24 U/L 7 - 38 U/L [facility] Anion gap [Moles/Vol] 9 mmol/L 9 - 18 mmol/L [facility] AST [Catalytic activity/Vol] 20 U/L 13 - 35 U/L [facility] Bilirubin [Mass/Vol] 0.2 mg/dL 0.2 - 1 .3 mg/dL [facility] Calcium [Mass/Vol] 9.7 mg/dL 8.5 - 10. 2 mg/dL [facility] Chloride [Moles/Vol] 100 mmol/L 97 - 10 5 mmol/L [facility] CO2 [Moles/Vol] 27 mmol/L 22 - 30 mmol/L [facility] Creatinine [Mass/Vol] 0.61 mg/dL 0.58 - 0.96 mg/dL [facility] Estimated Glomerular Filtration Rate 98 mL/min/1.73m >=60 mL/min/1.73 m [facility] Glucose [Mass/Vol] 106 mg/dL High 74 - 99 mg/dL [facility] Potassium [Moles/Vol] 3.8 mmol/L 3.7 - 5.1 mmol/L [facility] Protein [Mass/Vol] 6.8 g/dL 6.3 - 8.0 g/dL [facility] Sodium [Moles/Vol] 136 mmol/L 136 - 144 mmol/L [facility] Urea nitrogen [Mass/Vol] 14 mg/dL 7 - 21 mg/dL [facility] MYELOPROLIFERATIVE NEOPLASM PANEL BLOODon 10-30-2021 MYELOPROLIFERATIVE NEOPLASM PNL PERIPHERAL BLOOD Normal [facility] Comment on above: Order Comment: Speci men Type: BLOOD SPECIMEN Ordering Facility: [facility] Address: [address] [place] [phone] Result Comment: Myel oproliferative Neoplasm Panel Laboratory Accession Number: [id number] Sample Type: Peripheral Blood Result: CALR - No variant detected (Reference sequence: [id number]). JAK2 - No variant detected (Reference sequence: [id number]). MPL - No variant detected (Reference sequence: [id number]). Interpretation: No variants were identified in CALR exon 9, JAK2 exons 12-16 or MPL exons 10 and 11. This result does not exclude the possibility of a myeloproliferative neoplasm. If clinically indicated, additional testing for a broader panel of myeloid neoplasm-associated mutations (i.e., Hematologic Neoplasms NGS panel) may be helpful to further assess for clonal hematopoiesis. Methodology: Genomic DNA extracted from blood or bone marrow was subject to an amplicon based method to enrich for CALR exon 9, JAK2 exons 12-16 and MPL exons 10 and 11, including the flanking canonical splicing sites. Pair-end DNA sequencing was performed on the Illumina instrument ([place], [place]). A customized bioinformatic pipeline was used to align the sequencing reads to the reference human genome (GRCh37/hg19). Benign common polymorphisms are not reported. Limitations: Sequence changes outside the analyzed regions, including intronic, noncoding, and splice-site variants, will not be identified by this test. The lower limit of detection of this assay is approximately 1% allele proportion for the JAK2 [id number] single nucleotide variant and approximately 5% allele proportion for other variants. Variants below 5% allele proportion may be reported at the discretion of the molecular pathology professional staff if the technical quality of the sequencing is sufficient at that location and the call is unequivocal. Common germline polymorphisms are considered to represent wild type sequence and are not included in this report. The presence of nucleotide polymorphisms or variants at the annealing sites of the primers used in amplification and sequencing may cause allele drop- outs, hence a false negative result is possible. Disclaimer: This test was developed and its performance characteristics determined by [facility]'s [facility] [place] ([facility]). It has not been cleared or approved by the FDA. -[facility] is regulated under CLIA as certified to perform high- complexity testing. This test is used for clinical purposes. It should not be regarded as investigational or for research. Testing and interpretation performed at [facility], [address] [place] [id number]. CLIA Number: [id number] References: 1) Uriaher DA, Orrio A, Libanerkaren R, Kalen J, Borowitz MJ, Marie Smallwood MM, et al. The 2016 revision to the World Health Organization (WHO) classification of myeloid neoplasms and acute leukemia. Blood 2016;127: 2391-405. 2) NCCN Guidelines, Myeloproliferative Neoplasms, Version 2.2018. 3) Damien K, Janes YEUNG. Genomics of Myeloproliferative Neoplasms. J Clin Oncol. 2017 Oct 07;35(9):947-954. As reviewed by Ayde Kan, PhD, HCLD Performed By: #### M PNP #### [facility] CLIA [id number] [address] [place] [address] [place] #### 83979-8 #### [facility] CLIA [id number] [address] [place] [address] Nuclear Ab IA Ql (S)on 10-30 DENISE BY EIA, QUAL Negative Normal Negative [facility] Comment on above: Order Comment: Speci men Type: BLOOD SPECIMEN Ordering Facility: [facility] Address: [address] [place] [address] Result Comment: The qualitative antinuclear antibody screen test performed using enzyme immunoassay including the following antigens: dsDNA, histones, SS-A, SS-B, Sm, Sm/LAMP [employer], Scl-70, Camila-1, and centromeric antigens. Performed By: #### 4 7383-5 #### [facility] CLIA [id number] [address] [place] [address] [place] Ambulatory Visit Summaryon 0 10-18-2021 Ambulatory Visit Summary MERCEDESHELGAALYCE :1955 Visit Date:10/18/2021 Ambulatory Visit Instructions Your Diagnosis Urinary retention UTI (urinary tract infection) BMI 30.0-30.9,adult Your Care Team Attending Physician - Dottie Cade MD Primary Care Physician - AYSHA DE PAZ MD This Is Your Medications List Contact prescribing physician if questions or concerns allopurinol (allopurinol 300 mg Tab) atenolol (atenolol 50 mg Tab) atorvastatin (atorvastatin 40 mg Tab) ferrous sulfate (ferrous sulfate 325 mg oral enteric coated tablet) hydrOXYzine (hydrOXYzine hydrochloride 25 mg Tab) hydrochlorothiazide (hydrochlorothiazide 25 mg oral tablet) lisinopril (lisinopril 20 mg Tab) Procedures Performed section, Colonoscopy. Discharge Vitals Heart Rate (Peripheral) 108 Respiratory Rate 16 Blood Pressure 139/83 Height 160 cm Height 160.0 cm Weight 77.2 kg Weight 77.2 kg BMI 30.16 What to do next Scheduled Follow-Up Appointments November. 2021 10:15 AM EDT With: Dottie Cade MD Where: [facility] Formson 10-18-2021 Forms [phone] [id number] .[id number]:127 [facility] Patient Correspondenceon Patient Correspondence [phone] [id number]. [id number]:127 [facility] Patient Educationon 10-19-19 Patient Education Nutrition Calorie Counting for Weight Loss Calories are units of energy. Your body needs a certain amount of calories from food to keep you going throughout the day. When you eat more calories than your body needs, your body stores the extra calories as fat. When you eat fewer calories than your body needs, your body short fat to get the energy it needs. Calorie counting means keeping track of how many calories you eat and drink each day. Calorie counting can be helpful if you need to lose weight. If you make sure to eat fewer calories than your body needs, you should lose weight. Ask your health care provider what a healthy weight is for you. For calorie counting to work, you will need to eat the right number of calories in a day in order to lose a healthy amount of weight per week. A dietitian can help you determine how many calories you need in a day and will give you suggestions on how to reach your calorie goal. ? A healthy amount of weight to lose per week is usually 1?2 lb (0.5?0.9 kg). This usually means that your daily calorie intake should be reduced by 500?750 calories. ? Eating 1,200 ? 1,500 calories per day can help most women lose weight. ? Eating 1,500 ? 1,800 calories per day can help most men lose weight. What is my plan? My goal is to have calories per day. If I have this many calories per day, I should lose around pounds per week. What do I need to know about calorie counting? In order to meet your daily calorie goal, you will need to: ? Find out how many calories are in each food you would like to eat. Try to do this before you eat. ? Decide how much of the food you plan to eat. ? Write down what you ate and how many calories it had. Doing this is called keeping a food log. To successfully lose weight, it is important to balance calorie counting with a healthy lifestyle that includes regular activity. Aim for 150 minutes of moderate exercise (such as walking) or 75 minutes of vigorous exercise (such as running) each week. Where do I find calorie information? The number of calories in a food can be found on a Nutrition Facts label. If a food does not have a Nutrition Facts label, try to look up the calories online or ask your dietitian for help. Remember that calories are listed per serving. If you choose to have more than one serving of a food, you will have to multiply the calories per serving by the amount of servings you plan to eat. For example, the label on a package of bread might say that a serving size is 1 slice and that there are 90 calories in a serving. If you eat 1 slice, you will have eaten 90 calories. If you eat 2 slices, you will have eaten 180 calories. How do I keep a food log? Immediately after each meal, record the following information in your food log: ? What you ate. Don't forget to include toppings, sauces, and other extras on the food. ? How much you ate. This can be measured in cups, ounces, or number of items. ? How many calories each food and drink had. ? The total number of calories in the meal. Keep your food log near you, such as in a small notebook in your pocket, or use a mobile anisha or website. Some programs will calculate calories for you and show you how many calories you have left for the day to meet your goal. What are some calorie counting tips? ? Use your calories on foods and drinks that will fill you up and not leave you hungry: ? Some examples of foods that fill you up are nuts and nut butters, vegetables, lean proteins, and high-fiber foods like whole grains. High-fiber foods are foods with more than 5 g fiber per serving. ? Drinks such as sodas, specialty coffee drinks, alcohol, and juices have a lot of calories, yet do not fill you up. ? Eat nutritious foods and avoid empty calories. Empty calories are calories you get from foods or beverages that do not have many vitamins or protein, such as candy, sweets, and soda. It is better to have a nutritious high-calorie food (such as an avocado) than a food with few nutrients (such as a bag of chips). ? Know how many calories are in the foods you eat most often. This will help you calculate calorie counts faster. ? Pay attention to calories in drinks. Low-calorie drinks include water and unsweetened drinks. ? Pay attention to nutrition labels for low fat or fat free foods. These foods sometimes have the same amount of calories or more calories than the full fat versions. They also often have added sugar, starch, or salt, to make up for flavor that was removed with the fat. ? Find a way of tracking calories that works for you. Get creative. Try different apps or programs if writing down calories does not work for you. What are some portion control tips? ? Know how many calories are in a serving. This will help you know how many servings of a certain food you can have. ? Use a measuring cup to measure serving sizes. You could (more content not included)... Normal [facility] Urology Office/Clinic Noteon 10-18-2021 Urology Office/Clinic Note Chief Complaint [facility] [place]. HPI Staff Alyce is here today as a new patient following [place] [facility] [place]. Pt was seen in the ER for urinary retention. Pt currently has a serrano in which at the ER they drain 1100 ml out. Pt would like cath to be removed. Bp was 139/83. Dysuria: _No pain or burning just uncomfortable. Hematuria: _Denies Leaking: _Yes Abdominal pain: _Just some pelvic pain when she sits to long. Flank pain: _Denies Sexual complaints: _ History of Present Illness Pt is here for follow up [place] [facility] [place] due to Urinary Retention on 09/25/[address] Scan Pt has no associated symptoms, no fever, no chills, no flank pain. Review of Systems PHQ Score Initial Depression Screen Score: 0 ROS - Provider Constitutional: denies weight loss, denies hot flashes. Eyes: denies eye problems. Gastrointestinal: denies nausea, denies vomiting. Cardiovascular: denies chest pain or angina. Integumentary: no dryness Musculoskeletal: denies musculoskeletal symptoms. ENMT: denies otolaryngeal symptoms. Respiratory: no shortness of breath. Heme/Lymph: denies easy bleeding tendency, denies easy bruising tendency. Psychiatric: no confusion, no anxiety. Genitourinary: Pt has Serrano catheter Physical Exam Vitals & Measurements HR: 108(Peripheral) RR: 16 BP: 139/83 HT: 160 cm HT: 160.0 cm WT: 77.2 kg WT: 77.2 kg BMI: 30.16 General Appearance: alert , no acute distress, well nourished, well developed female, ambulates with roller walker Head: normocephalic . Eyes: normal orbit and globe. ENMT: normal examination of external ears. Chest: Symmetric chest rise, respirations non labored . Cardiovascular: regular rate and rhythm. Abdomen: soft, non distended, no tenderness Genitourinary: bladder nonpalpable, no flank tenderness. Serrano in place with concentrated yellow urine Skin: warm, dry, no bruising. Psychiatric: cooperative, affect appropriate for age, normal judgement, euthymic mood. Procedure Pt's Serrano catheter has been removed in office today with no difficulties or complications. They have been advised to drink plenty of fluids. Pt has been instructed to call office in the event that they are not able to void in the next 4-5 hours, or go to the ER. Also advised Pt if they experience any severe bleeding, fever over 101 and /or shaking chills to go to the ER. Assessment/Plan Will return for follow up in 1 month w/PVR 1. Urinary retention (R33.9: Retention of urine, unspecified) Denies prior issues with urinary tension in the past. Mobility and lower extremity weakness has improved since hospitalization. Voiding trial today. The Serrano catheter has been removed today without complications. The patient will call the office or present to the Emergency Department if he is unable to void. Will plan a follow-up visit with a bladder scan for PVR. Pt encouraged to urinate at least every 4 hours 2. UTI (urinary tract infection) (N39.0: Urinary tract infection, site not specified) Pt's Urine Culture showed Diphtheroids received ceftriaxone while in the hospital. No Susceptibility was ran Pt encouraged to increase fluid intake Pt will start Augmentin 875mg BID-only 2 pills for pericatheter prophylaxis. Follow-up With When Contact Information Rayo CIFUENTES, Dottie Ellis, URL, URO In 1 month 11/18/2021 EDT Additional Instructions: w/PVR Patient Education Acute Urinary Retention, Female, Vnoc-rn-Mrhh Calorie Counting for Weight Loss Shalini Chavez, personally scribed for Dr. Cade on 10/18/2021 08:52:56. . Documentation recorded by the scribe, Shalini Paulson, accurately reflects the services(s) I performed and decisions made by me. Authenticated by Dr. Cade on 10/18/2021 13:24:11. Problem List/Past Medical History Ongoing Anemia BMI 30.0-30.9,adult Gout Hematuria Hydronephrosis, left Hypercholesteremia Hypertension Urinary retention UTI (urinary tract infection) Historical No qualifying data Procedure/Surgical History section, Colonoscopy. Medications allopurinol 300 mg Tab, Oral, Daily atenolol 50 mg Tab, Oral, Daily atorvastatin 40 mg Tab, Oral, Daily, Unable to obtain ferrous sulfate 325 mg oral enteric coated tablet, Oral, Daily hydrochlorothiazide 25 mg oral tablet, Oral, Daily hydrOXYzine hydrochloride 25 mg Tab, Oral, QID lisinopril 20 mg Tab, 20 mg= 1 tab(s), Oral, BID, Not taking Allergies amLODIPine (unknown) Social History Tobacco Former smoker, quit more than 30 days ago Tobacco Use:., 10/18/2021 [facility] Comment on above: Result Comment: Elec tronically Signed By: Dottie Cade MD\.br\Date and Time Signed: 10/18/21 13:24 EDT\.br\Electronically Co-Signed By: Shalini Paulson\.br\Date and Time Co-Signed: 10/18/21 08:53 EDT CBC W Auto Differential pane l (Bld)on 10-16-2021 Basophils (Bld) [#/Vol] 0.10 10*3/uL Normal <0.11 [facility] Comment on above: Order Comment: Speci men Type: BLOOD SPECIMEN Ordering Facility: [facility] Address: [address] [place] [address] Performed By: #### 1 4196-0, 35936-5 #### [facility] CLIA [id number] [address] [place] [address]22 Basophils/100 WBC (Bld) 1.0 % Normal C [facility] Comment on above: Order Comment: Speci men Type: BLOOD SPECIMEN Ordering Facility: [facility] Address: [address] [place] [address] Performed By: #### 1 4196-0, 73851-0 #### [facility] CLIA [id number] [address] [place] [address] 40208 Differential cell count method Nom (Bld) Auto Normal [facility] Comment on above: Order Comment: Speci men Type: BLOOD SPECIMEN Ordering Facility: [facility] Address: [address] [place] [address] Performed By: #### 1 4196-0, 23779-2 #### [facility] CLIA [id number] [address] [place] [address] 62665 Eosinophils (Bld) [#/Vol] 0.52 10*3/uL High <0.46 [facility] Comment on above: Order Comment: Speci men Type: BLOOD SPECIMEN Ordering Facility: [facility] Address: [address] [place] [address] Performed By: #### 1 4196-0, 51524-7 #### [facility] CLIA [id number] [address] [place] [address] 57272 Eosinophils/100 WBC (Bld) 5.2 % Normal [facility] Comment on above: Order Comment: Speci men Type: BLOOD SPECIMEN Ordering Facility: [facility] Address: [address] [place] [address] Performed By: #### 1 4196-0, 33494-2 #### [facility] CLIA [id number] [address] [place] [address] 14489 Erythrocyte distribution width (RBC) [Ratio] 14.1 % Normal 11.5-15.0 [facility] Comment on above: Order Comment: Speci men Type: BLOOD SPECIMEN Ordering Facility: [facility] Address: [address] [place] [address] Performed By: #### 1 4196-0, 43243-6 #### [facility] CLIA [id number] [address] [place] [address] 75821 Hematocrit (Bld) [Volume fraction] 31.4 % Low 36.0-46.0 [facility] Comment on above: Order Comment: Speci men Type: BLOOD SPECIMEN Ordering Facility: [facility] Address: [address] [place] [address] Performed By: #### 1 4196-0, 69199-2 #### [facility] CLIA [id number] [address] [place] [address] 06084 Hemoglobin (Bld) [Mass/Vol] 9.9 g/dL Low 11.5-15.5 [facility] Comment on above: Order Comment: Speci men Type: BLOOD SPECIMEN Ordering Facility: [facility] Address: [address] [place] [address] Performed By: #### 1 4196-0, 85313-2 #### [facility] CLIA [id number] [address] [place] [address] 15506 IMMATURE GRAN % 0.7 % Normal [facility] Comment on above: Order Comment: Speci men Type: BLOOD SPECIMEN Ordering Facility: [facility] Address: [address] [address] Performed By: #### 1 4196-0, 14576-8 #### [facility] CLIA [id number] [address] [place] [address] IMMATURE GRAN ABS 0.07 k/uL Normal <0.10 [facility] Comment on above: Order Comment: Speci men Type: BLOOD SPECIMEN Ordering Facility: [facility] Address: [address] [place] [address] Performed By: #### 1 4196-0, 27230-1 #### [facility] CLIA [id number] [address] [place] [address] 60039 Lymphocytes (Bld) [#/Vol] 1.38 10*3/uL Normal 1.00-4.00 [facility] Comment on above: Order Comment: Speci men Type: BLOOD SPECIMEN Ordering Facility: [facility] Address: [address] [place] [address] Performed By: #### 1 4196-0, 64033-6 #### [facility] CLIA [id number] [address] [place] [address] 21912 Lymphocytes/100 WBC (Bld) 13.9 % Normal [facility] Comment on above: Order Comment: Speci men Type: BLOOD SPECIMEN Ordering Facility: [facility] Address: [address] [place] [address] Performed By: #### 1 4196-0, 59827-1 #### [facility] CLIA [id number] [address] [place] [address] 20482 MCH (RBC) [Entitic mass] 30.1 pg Normal 26.0-34.0 [facility] Comment on above: Order Comment: Speci men Type: BLOOD SPECIMEN Ordering Facility: [facility] Address: [address] [place] [address] Performed By: #### 1 4196-0, 99494-1 #### [facility] CLIA [id number] [address] [place] [address] MCHC (RBC) [Mass/Vol] 31.5 g/dL Normal 30.5-36.0 [facility] Comment on above: Order Comment: Speci men Type: BLOOD SPECIMEN Ordering Facility: [facility] Address: [address] [place] [address] Performed By: #### 1 4196-0, 49599-6 #### [facility] CLIA [id number] [address] [place] [address] 53887 MCV (RBC) [Entitic vol] 95.4 fL Normal 80.0-100.0 C [facility] Comment on above: Order Comment: Speci men Type: BLOOD SPECIMEN Ordering Facility: [facility] Address: [address] [place] [address] Performed By: #### 1 4196-0, 86354-8 #### [facility] CLIA [id number] [address] [place] [address] 11475 Monocytes (Bld) [#/Vol] 0.60 10*3/uL Normal <0.87 [facility] Comment on above: Order Comment: Speci men Type: BLOOD SPECIMEN Ordering Facility: [facility] Address: [address] [place] [address] Performed By: #### 1 4196-0, 47981-9 #### [facility] CLIA [id number] [address] [place] [address] 78193 Monocytes/100 WBC (Bld) 6.0 % Normal C [facility] Comment on above: Order Comment: Speci men Type: BLOOD SPECIMEN Ordering Facility: [facility] Address: [address] [place] [address] Performed By: #### 1 4196-0, 23313-5 #### [facility] CLIA [id number] [address] [place] [address] 11763 Neutrophils (Bld) [#/Vol] 7.27 10*3/uL Normal 1.45-7.50 [facility] Comment on above: Order Comment: Speci men Type: BLOOD SPECIMEN Ordering Facility: [facility] Address: [address] Performed By: #### 1 4196-0, 67028-6 #### [facility] CLIA [id number] [address] [place] [address] 46386 Neutrophils/100 WBC (Bld) 73.2 % Normal [facility] Comment on above: Order Comment: Speci men Type: BLOOD SPECIMEN Ordering Facility: [facility] Address: [address] [place], [place] [address] Performed By: #### 1 4196-0, 91886-5 #### [facility] CLIA [id number] [address] [place] [address] 24236 Nucleated RBC (Bld) [#/Vol] 10*3/uL Normal <0.01 [facility] Comment on above: Order Comment: Speci men Type: BLOOD SPECIMEN Ordering Facility: [facility] Address: [address] [place], [place] [address] Performed By: #### 1 4196-0, 21043-7 #### [facility] CLIA [id number] [address] [place] [address] 05611 Nucleated RBC/100 WBC (Bld) [Ratio] 0.0 /100 WBC Normal [facility] Comment on above: Order Comment: Speci men Type: BLOOD SPECIMEN Ordering Facility: [facility] Address: [address] [place], [place] [address] Performed By: #### 1 4196-0, 17744-8 #### [facility] CLIA [id number] [address] [place] [address] 68805 Platelet mean volume (Bld) [Entitic vol] 9.1 fL Normal 9.0-12.7 [facility] Comment on above: Order Comment: Speci men Type: BLOOD SPECIMEN Ordering Facility: [facility] Address: [address] [place], [place] [address] Performed By: #### 1 4196-0, 55963-9 #### [facility] CLIA [id number] [address] [place] [address] 78294 Platelets (Bld) [#/Vol] 339 10*3/uL Normal 150-400 [facility] Comment on above: Order Comment: Speci men Type: BLOOD SPECIMEN Ordering Facility: [facility] Address: [address] [place] [address] Performed By: #### 1 4196-0, 94519-2 #### [facility] CLIA [id number] [address] [place] [address] 79084 RBC (Bld) [#/Vol] 3.29 10*6/uL Low 3.90-5.20 [facility] Comment on above: Order Comment: Speci men Type: BLOOD SPECIMEN Ordering Facility: [facility] Address: [address] [place] [address] Performed By: #### 1 4196-0, 99737-6 #### [facility] CLIA [id number] [address] [place] [address] 58979 WBC (Bld) [#/Vol] 9.94 10*3/uL Normal 3.70-11.00 [facility] Comment on above: Order Comment: Speci men Type: BLOOD SPECIMEN Ordering Facility: [facility] Address: [address] [place] [address] Performed By: #### 1 4196-0, 85498-5 #### [facility] CLIA [id number] [address] [place] [address] 57479 Abs Immature Gran 0.07 k/uL <0.10 k/uL [facility] Basophils (Bld) [#/Vol] 0.10 10*3/uL <0.11 k/uL [facility] Basophils/100 WBC (Bld) 1.0 % [facility] Differential cell count method Nom (Bld) Auto [facility] Eosinophils (Bld) [#/Vol] 0.52 10*3/uL High <0.46 k/uL [facility] Eosinophils/100 WBC (Bld) 5.2 % [facility] Erythrocyte distribution width (RBC) [Ratio] 14.1 % 11.5 - 15.0 % [facility] Hematocrit (Bld) [Volume fraction] 31.4 % Low 36.0 - 46.0 % [facility] Hemoglobin (Bld) [Mass/Vol] 9.9 g/dL Low 11.5 - 15.5 g/dL [facility] Immature Gran % 0.7 % [facility] Lymphocytes (Bld) [#/Vol] 1.38 10*3/uL 1.00 - 4.00 k/uL [facility] Lymphocytes/100 WBC (Bld) 13.9 % [facility] MCH (RBC) [Entitic mass] 30.1 pg 26.0 - 34.0 pg [facility] MCHC (RBC) [Mass/Vol] 31.5 g/dL 30.5 - 36.0 g/dL [facility] MCV (RBC) [Entitic vol] 95.4 fL 80.0 - 100.0 fL [facility] Monocytes (Bld) [#/Vol] 0.60 10*3/uL <0.87 k/uL [facility] Monocytes/100 WBC (Bld) 6.0 % C [facility] Neutrophils (Bld) [#/Vol] 7.27 10*3/uL 1.45 - 7.50 k/uL [facility] [employer] Neutrophils/100 WBC (Bld) 73.2 % [facility] Nucleated RBC (Bld) [#/Vol] 10*3/uL <0.01 k/uL [facility] Nucleated RBC/100 WBC (Bld) [Ratio] 0.0 /100 WBC [facility] Platelet mean volume (Bld) [Entitic vol] 9.1 fL 9.0 - 12.7 fL [facility] Platelets (Bld) [#/Vol] 339 10*3/uL 150 - 400 k/uL [facility] RBC (Bld) [#/Vol] 3.29 10*6/uL Low 3.90 - 5.2 0 m/uL [facility] WBC (Bld) [#/Vol] 9.94 10*3/uL 3.70 - 11.00 k/uL [facility] CNOVSPon 10-16-2021 CNOVSP Visit (SP) Office ([place]) ALYCE DAVID ([id number]) 1955 F Date Time Provider Department 10/16/21 11:00 AM CARL PATEL During your visit today, we recorded the following information about you: Temperature Pulse Respiration Blood pressure 97.7 degrees 116/minute 18/minute 112/67 Weight Height 77.1 kg 1.62 m Carl Patel MD 10/16/2021 12:53 PM Signed Pt HEMATOLOGY INITIAL CONSULTATION October 16, 2021 REFERRAL REQUESTED BY: Aysha Clements PCP and other physicians involved in patient's care: Aysha Clements (PCP), Emanuel Clark (neurology), Dottie Cade (urology), Justin Gonzalez (GI) REASON FOR CONSULTATION: Anemia HEMATOLOGICAL HISTORY: She was prescribed oral iron thrice a week in for anemia. I do not have iron values from that time. EGD and colonoscopy in March 2020 was notable for chronic gastritis. H. pylori was negative. Recommendation was to follow up in 10 years. No previous transfusion history. HPI: This is a 66-year-old female comes to clinic for evaluation of anemia. Briefly, she [place] [facility] with proximal muscle weakness and inability to walk over 2-3 weeks along with urinary retention. She also describes multiple rashes over the body during this time. In the hospital, she was evaluated by neurology and urology. She was recommended a Serrano catheter placement that was to be continued 2-3 weeks post discharge. MRI spine was without any acute pathology. Creatinine kinase and aldolase levels are normal, however myoglobin levels were elevated. The plan is for her to have nerve conduction and EMG as an outpatient. She was also noted to be hypokalemic and hypomagnesemic for which she is on replacements. During her hospitalization, her oral iron worse switch from twice a week to once daily. After discharge, she was advised to switch it back to twice a week. During her hospitalization, her serum iron was noted to be low at 28 and she received 3 doses of intravenous iron. Other notable labs include iron saturation 9%, TIBC 300, ferritin 669, CRP 4.1 and ESR 45. CBC was notable for hemoglobin ranging from 9?10 g/dL with an MCV of 95. EGD in March 2020 was notable for chronic gastritis. H. pylori was negative. On review today, patient endorses cough for the last 2 weeks. No fevers or chills. She is short of breath and weak however, continues to work with physical therapy. She needs support with her hands to get up from a sitting to standing position. This is a new symptom that she did not have before. She has an appoint with neurology pending. She has a Serrano in place and plans to follow-up with urology soon. Other symptoms endorsed on review include intermittent headaches, palpitations and fatigue. She is not able to tell me the timeline of the symptoms as she ignore them for a long time . She is here with her son, PATTI. ROS is negative except that mentioned in HPI PAST MEDICAL SURGICAL FAMILY AND SOCIAL HISTORY: She has a history of ?Hypertension ?Hyperlipidemia ?Undiagnosed ?myopathy ?Chronic anemia without improvement on oral iron She has a 25 pack year smoking history and quit in 2012. Family history significant for lung cancer in her sister and most of her siblings are from cancer. She lives alone in [place], [place] but now has her son for help. MEDICATIONS AND ALLERGIES: Reviewed PHYSICAL EXAM BP 112/67 Pulse 116 Temp 36.5 ?C (97.7 ?F) (Temporal) Resp 18 Ht 162 cm (5' 3.78 ) Wt 77.1 kg (170 lb) SpO2 91% BMI 29.38 kg/m? Using a walker to ambulate, power 4/5 in hip girdle, multiple skin eruptions, tachycardia but no wheezing on lung exam, abdomen soft LABORATORY, IMAGING AND PATHOLOGY CBC shows hemoglobin 9.9 g/dL with MCV 95 Normal WBC and platelets Reticulocyte production index 1.5, low CMP normal Other work-up pending ASSESSMENT AND RECOMMENDATIONS 58 female with normocytic anemia I discussed the multiple differentials associated with anemia. WBC and platelets are normal. Patient has had EGD in the past showing chronic gastritis but on current evaluation stool is without occult blood. There is no GI or bleeding reported. She has been on oral iron for the last 1 year without improvement in hemoglobin, even though ferritin while she was inpatient was elevated. Her inflammatory markers are elevated. My main differential is anemia of chronic disease secondary to underlying inflammatory disorder. She is awaiting additional neurological work-up for myopathy or dermatomyositis (elevated myoglobin, normal CK and aldolase, skin eruptions). I will recheck her iron profile, inflammatory markers today and rule out paraproteinemia. Hold off on bone marrow biopsy for now. PT and PTT during hospitalization were elevated. Recheck today. She has a cough for the last 2 weeks. Check x-ray chest. Follow-up in 2 wee (more content not included)... Normal [facility] CRP [facility] CRP [Mass/Vol] 1.5 mg/dL High <0.9 [facility] Comment on above: Order Comment: Romeo vasquez Type: BLOOD SPECIMEN Ordering Facility: [facility] Address: [address] [place] [address] Performed By: #### K LFRS #### [facility] CLIA [id number] [address] [place] [address] [facility] Comprehensive metabolic 2000 panelon 10-16-2021 Albumin [Mass/Vol] 3.9 g/dL Normal 3.9-4.9 [facility] Comment on above: Order Comment: Romeo vasquez Type: BLOOD SPECIMEN Ordering Facility: [facility] Address: [address] [place] [address] Performed By: #### 2 4323-8 #### [facility] CLIA [id number] [address] [place] [address] ALP [Catalytic activity/Vol] 106 U/L Normal 34-123 [facility] Comment on above: Order Comment: Romeo vasquez Type: BLOOD SPECIMEN Ordering Facility: [facility] Address: [address] [place] [address] Performed By: #### 2 4323-8 #### [facility] CLIA [id number] [address] [place] [address] ALT [Catalytic activity/Vol] 15 U/L Normal 7-38 [facility] Comment on above: Order Comment: Speci men Type: BLOOD SPECIMEN Ordering Facility: [facility] Address: [address] Performed By: #### 2 4323-8 #### [facility] CLIA [id number] [address] [place] [address] Anion gap [Moles/Vol] 10 mmol/L Normal 9-18 [facility] Comment on above: Order Comment: Speci men Type: BLOOD SPECIMEN Ordering Facility: [facility] Address: [address] [place], [place] [address] Performed By: #### 2 4323-8 #### [facility] CLIA [id number] [address] [place] [address] AST [Catalytic activity/Vol] 24 U/L Normal 13-35 [facility] Comment on above: Order Comment: Speci men Type: BLOOD SPECIMEN Ordering Facility: [facility] Address: [address] Performed By: #### 2 4323-8 #### [facility] CLIA [id number] [address] [place] [address] Bilirubin [Mass/Vol] 0.2 mg/dL Normal 0.2-1.3 [facility] Comment on above: Order Comment: Speci men Type: BLOOD SPECIMEN Ordering Facility: [facility] Address: [address] Performed By: #### 2 4323-8 #### [facility] CLIA [id number] [address] [place] [address] Calcium [Mass/Vol] 9.8 mg/dL Normal 8.5-10.2 [facility] Comment on above: Order Comment: Speci men Type: BLOOD SPECIMEN Ordering Facility: [facility] Address: [facility] [address] Performed By: #### 2 4323-8 #### [facility] CLIA [id number] [address] [place] [address] Chloride [Moles/Vol] 93 mmol/L Low 97-105 [facility] Comment on above: Order Comment: Speci men Type: BLOOD SPECIMEN Ordering Facility: [facility] Address: [address] [place] [address] Performed By: #### 2 4323-8 #### [facility] CLIA [id number] [address] [place] [address] CO2 [Moles/Vol] 31 mmol/L High 22-30 [facility] Comment on above: Order Comment: Speci men Type: BLOOD SPECIMEN Ordering Facility: [facility] Address: [address] [place] [address] Performed By: #### 2 4323-8 #### [facility] CLIA [id number] [address] [place] [address] Creatinine [Mass/Vol] 0.61 mg/dL Normal 0.58-0.96 [facility] Comment on above: Order Comment: Speci men Type: BLOOD SPECIMEN Ordering Facility: [facility] Address: [address] [place] [address] Performed By: #### 2 4323-8 #### [facility] CLIA [id number] [address] [place] [address] ESTIMATED GLOMERULAR FILTRATION RATE 98 mL/min/1.73m??? Normal >=60 [facility] Comment on above: Order Comment: Speci men Type: BLOOD SPECIMEN Ordering Facility: [facility] Address: [address] [place] [address] Result Comment: Christelle mated Glomerular Filtration Rate (eGFR) is calculated using the 2020 CKD-EPI creatinine equation. This equation utilizes serum creatinine, sex, and age as parameters. The creatinine assay has traceable calibration to isotope dilution-mass spectrometry. Refer to KDIGO guidelines for clinical interpretation. In patients with unstable renal function, e.g. those with acute kidney injury, the eGFR may not accurately reflect actual GFR. Performed By: #### 2 4323-8 #### [facility] CLIA [id number] [address] [place] [address] Glucose [Mass/Vol] 101 mg/dL High 74-99 [facility] Comment on above: Order Comment: Speci men Type: BLOOD SPECIMEN Ordering Facility: [facility] Address: [address] [place] [address] Result Comment: The [place] Diabetes [employer] (ADA) provides guidance for cutoff values for fasting glucose and random glucose. The ADA defines fasting as no caloric intake for at least 8 hours. Fasting plasma glucose results between 100 to 125 mg/dL indicate increased risk for diabetes (prediabetes). Fasting plasma glucose results greater than or equal to 126 mg/dL meet the criteria for diagnosis of diabetes. In the absence of unequivocal hyperglycemia, results should be confirmed by repeat testing. In a patient with classic symptoms of hyperglycemia or hyperglycemic crisis, random plasma glucose results greater than or equal to 200 mg/dL meet the criteria for diagnosis of diabetes. Reference: Standards of Medical Care in Diabetes 2016, [place] [employer] Association. Diabetes Care. 2016.39(Suppl 1). Performed By: #### 2 4323-8 #### [facility] CLIA [id number] [address] [place] [address] Potassium [Moles/Vol] 4.2 mmol/L Normal 3.7-5.1 [facility] Comment on above: Order Comment: Speci men Type: BLOOD SPECIMEN Ordering Facility: [facility] Address: [address] [place] [address] Performed By: #### 2 4323-8 #### [facility] CLIA [id number] [address] [place] [address] Protein [Mass/Vol] 7.2 g/dL Normal 6.3-8.0 [facility] Comment on above: Order Comment: Speci men Type: BLOOD SPECIMEN Ordering Facility: [facility] Address: [address] [place] [address] Performed By: #### 2 4323-8 #### [facility] CLIA [id number] [address] [place] [address] [place] [address] Sodium [Moles/Vol] 134 mmol/L Low 136-144 [facility] Comment on above: Order Comment: Speci men Type: BLOOD SPECIMEN Ordering Facility: [facility] Address: [address] [place], [place] [address] Performed By: #### 2 4323-8 #### [facility] CLIA [id number] [address] [place], [place] [address] Urea nitrogen [Mass/Vol] 13 mg/dL Normal 7-21 [facility] Comment on above: Order Comment: Speci men Type: BLOOD SPECIMEN Ordering Facility: [facility] Address: [address] [place] [address] Performed By: #### 2 4323-8 #### [facility] CLIA [id number] [address] [place] [address] Albumin [Mass/Vol] 3.9 g/dL 3.9 - 4.9 g/dL [facility] ALP [Catalytic activity/Vol] 106 U/L 34 - 123 U/L [facility] ALT [Catalytic activity/Vol] 15 U/L 7 - 38 U/L [facility] Anion gap [Moles/Vol] 10 mmol/L 9 - 18 mmol/L [facility] AST [Catalytic activity/Vol] 24 U/L 13 - 35 U/L [facility] Bilirubin [Mass/Vol] 0.2 mg/dL 0.2 - 1 .3 mg/dL [facility] Calcium [Mass/Vol] 9.8 mg/dL 8.5 - 10. 2 mg/dL [facility] Chloride [Moles/Vol] 93 mmol/L Low 97 - 10 5 mmol/L [facility] CO2 [Moles/Vol] 31 mmol/L High 22 - 30 mmol/L [facility] Creatinine [Mass/Vol] 0.61 mg/dL 0.58 - 0.96 mg/dL [facility] Estimated Glomerular Filtration Rate 98 mL/min/1.73m >=60 mL/min/1.73 m [facility] Glucose [Mass/Vol] 101 mg/dL High 74 - 99 mg/dL [facility] Potassium [Moles/Vol] 4.2 mmol/L 3.7 - 5.1 mmol/L [facility] Protein [Mass/Vol] 7.2 g/dL 6.3 - 8.0 g/dL [facility] Sodium [Moles/Vol] 134 mmol/L Low 136 - 144 mmol/L [facility] Urea nitrogen [Mass/Vol] 13 mg/dL 7 - 21 mg/dL [facility] ESR Westergren method (Bld) [Velocity]on 10-16-2021 ESR (Bld) [Velocity] 55 mm/h High 0-20 [facility] Comment on above: Order Comment: Speci men Type: BLOOD SPECIMEN Ordering Facility: [facility] Address: [address] [place] [address] Performed By: #### M PNP #### [facility] CLIA [id number] [address] [place] [address] [place] #### 22591-1 #### [facility] CLIA [id number] [address] [place] [address] FERRITIN BLDon 10-16-2021 Ferritin [Mass/Vol] 1150.0 ng/mL High 14.7-205.1 [facility] Comment on above: Order Comment: Speci men Type: BLOOD SPECIMEN Ordering Facility: [facility] Address: [address] [place] [address] Performed By: #### K LFRS #### [facility] CLIA [id number] [address] [place] [address] [place] Haptoglob SerPl-mCncon 10-16 Haptoglobin [Mass/Vol] 276 mg/dL High 31-238 [facility] Comment on above: Order Comment: Speci men Type: BLOOD SPECIMEN Ordering Facility: [facility] Address: [address] [place] [address] Performed By: #### K LFRS #### [facility] CLIA [id number] [address] [place] [address] [place] IMMUNOFIXATION SCREEN, SERUM on 10-16-2021 MPA RESULT No M protein is identified. Normal No M protein is identified. [facility] Comment on above: Order Comment: Speci men Type: BLOOD SPECIMEN Ordering Facility: [facility] Address: [address] [place] [address] Performed By: #### M PNP #### [facility] CLIA [id number] [address] [place] [address] OF [place] #### 33360-6 #### [facility] CLIA [id number] [address] [place], [place] [address] STAFF REVIEW (MPA) Reviewed by Marie Rebollar MD [facility] Comment on above: Order Comment: Speci men Type: BLOOD SPECIMEN Ordering Facility: [facility] Address: [address] [place] [address] Performed By: #### M PNP #### [facility] CLIA [id number] [address] [place] [address] [place] #### 51197-0 #### [facility] CLIA [id number] [address] [place], [place] [address] IMMUNOGLOBULINS GAMon 2021 IgA [Mass/Vol] 246 mg/dL Normal 70-400 [facility] Comment on above: Order Comment: Speci men Type: BLOOD SPECIMEN Ordering Facility: [facility] Address: [address] [place], [place] [address] Performed By: #### S ERIMM #### [facility] CLIA [id number] [address] [place] [address] [place] IgG [Mass/Vol] 949 mg/dL Normal 700-1,600 [facility] Comment on above: Order Comment: Speci men Type: BLOOD SPECIMEN Ordering Facility: [facility] Address: [address] [place], [place] [address] Performed By: #### S ERIMM #### [facility] CLIA [id number] [address] [place] [address] [place] IgM [Mass/Vol] 103 mg/dL Normal 40-230 [facility] Comment on above: Order Comment: Speci men Type: BLOOD SPECIMEN Ordering Facility: [facility] Address: [address] [place] [address] Performed By: #### S ERIMM #### [facility] CLIA [id number] [address] [place] [address] [place] IRON + TIBCon 10-16-2021 Iron [Mass/Vol] 48 ug/dL Normal 41-186 [facility] Comment on above: Order Comment: Speci men Type: BLOOD SPECIMEN Ordering Facility: [facility] Address: [address] [place] [address] Performed By: #### K LFRS #### [facility] CLIA [id number] [address] [place] [address] [place] Iron binding capacity [Mass/Vol] 310 ug/dL Normal 232-386 [facility] Comment on above: Order Comment: Speci men Type: BLOOD SPECIMEN Ordering Facility: [facility] Address: [address] [place] [address] Performed By: #### K LFRS #### [facility] CLIA [id number] [address] [place] [address] [place] Iron/TIBC [Molar ratio] 15 % Normal 15-57 C [facility] Comment on above: Order Comment: Speci men Type: BLOOD SPECIMEN Ordering Facility: [facility] Address: [address] [place], [place] [address] Performed By: #### K LFRS #### [facility] CLIA [id number] [address] [place] [address] [place] KAPPA/OBRIEN,FREE,SERon 2021 Immunoglobulin light chains.kappa.free (S) [Mass/Vol] 40.6 mg/L High 3.3-19.4 [facility] Comment on above: Order Comment: Speci men Type: BLOOD SPECIMEN Ordering Facility: [facility] Address: [address] [place] [address] Performed By: #### K LFRS #### [facility] CLIA [id number] [address] [place] [address] [place] Immunoglobulin light chains.kappa/Immunoglob ulin light chains.lambda (S) [Mass ratio] 0.99 Normal 0.26-1.65 [facility] Comment on above: Order Comment: Speci men Type: BLOOD SPECIMEN Ordering Facility: [facility] Address: [address] [place] [address] Performed By: #### K LFRS #### [facility] CLIA [id number] [address] [place] [address] [place] Immunoglobulin light chains.lambda.free [Mass/Vol] 41.0 mg/L High 5.7-26.3 [facility] Comment on above: Order Comment: Speci men Type: BLOOD SPECIMEN Ordering Facility: [facility] Address: [address] [place] [address] Performed By: #### K LFRS #### [facility] CLIA [id number] [address] [place] [address] [place] PT panel Coag (PPP)on 2021 INR Coag (PPP) [Relative time] 1.1 {INR} Normal 0.9-1.3 [facility] Comment on above: Order Comment: Speci men Type: BLOOD SPECIMEN Ordering Facility: [facility] Address: [address] [place] [address] Result Comment: Maldonado min K Antagonist (VKA) Therapeutic Range: INR 2 to 3 (Target INR of 2.5) Note: For patients treated with VKA drugs, such as warfarin, the [place] [employer] 2012 Guideline recommends a therapeutic INR range of 2 to 3 (target INR of 2.5). This recommendation includes high-risk patients with antiphospholipid syndrome with previous arterial or venous thromboembolism, current-generation mechanical or bioprosthetic aortic heart valve replacement. Note: Patients with mechanical aortic valve replacement and additional risk factors for thromboembolic events (atrial fibrillation, previous thromboembolism, LV dysfunction, hypercoagulable conditions) or an older generation mechanical AVR (i.e., ball in-Cage) or any mechanical MVR should have a INR therapeutic range of 2.5 to 3.5 (target INR of 3). Sohan GH, et al. Chest 2012, 141:7S-47S Flower RA et al. [facility] 2017, 70: 252-289 Performed By: #### M PNP #### [facility] CLIA [id number] [address] [place] [address] [place] #### 54953-6 #### [facility] CLIA [id number] [address] [place] [address] PT Coag (PPP) [Time] 12.0 s Normal 9.7-13.0 [facility] Comment on above: Order Comment: Speci men Type: BLOOD SPECIMEN Ordering Facility: [facility] Address: [address] [place] [address] Performed By: #### M PNP #### [facility] CLIA [id number] [address] [place] [address] #### 47956-5 #### [facility] CLIA [id number] [address] [place] [address] RETIC COUNTon 10-16-2021 Reticulocytes (Bld) [#/Vol] 0.0001 10*3/uL High 0.018 - 0.100 M/uL [facility] Retics #on 10-16-2021 Reticulocytes (Bld) [#/Vol] 0.0001 10*3/uL High 0.018-0.100 [facility] Comment on above: Order Comment: Speci men Type: BLOOD SPECIMEN Ordering Facility: [facility] Address: [address] [place] [address] Performed By: #### 1 4196-0, 05275-8 #### [facility] CLIA [id number] [address] [place] [address] Reticulocytes (Bld) [#/Vol]o n 10-16-2021 Reticulocytes/100 RBC (Bld) 3.1 % High 0.4-2.0 [facility] Comment on above: Order Comment: Speci men Type: BLOOD SPECIMEN Ordering Facility: [facility] Address: [address] [place] [address] Performed By: #### 1 4196-0, 19744-1 #### [facility] [facility] CLIA [id number] [address] [place] [id number] Reticulocytes/100 RBC (Bld) 3.1 % High 0.4 - 2.0 % [facility] VITAMIN B12 BLOODon 10-17-19 Cobalamin (Vitamin B12) [Mass/Vol] 604 pg/mL Normal 232-1,245 [facility] Comment on above: Order Comment: Speci men Type: BLOOD SPECIMEN Ordering Facility: [facility] Address: [address] [place] [address] Performed By: #### M PNP #### [facility] ILLUMINA [facility] CLIA [id number] [address] [place] [address] OF [facility] #### [id number] #### [facility] CLIA [id number] [address] [place] [address] XR CHEST 2V FRONTAL/LATon XR CHEST 2V FRONTAL/LAT * * *Final Repor t* * * DATE OF EXAM: Oct 16 2021 12:01PM [id number] - XR CHEST 2V FRONTAL/LAT / PROCEDURE REASON: Cough * * * * Physician Interpretation * * * * RESULT: EXAMINATION: CHEST RADIOGRAPH (2 VIEW FRONTAL and LATERAL) CLINICAL HISTORY: Cough MQ: [id number] EXAM DATE/TIME: 10/16/2021 12:01 PM COMPARISON: No relevant prior studies available. RESULT: Lines, tubes, and devices: None. Lungs and pleura: No consolidation. Mild, diffuse prominence to the interstitium is identified, a nonspecific finding. The pulmonary vasculature is within normal limits. No substantial pleural effusion is appreciated. Cardiomediastinal silhouette: Normal cardiomediastinal silhouette. Bones and soft tissues: Degenerative change involving the thoracic spine. Mild anterior wedge deformity of a mid thoracic vertebral body is noted. IMPRESSION: Mild, diffuse interstitial prominence, without evidence for focal consolidation. Correlation with any available prior chest x-rays or if clinically necessary, correlation with follow-up examinations would be suggested. Transcribe Date/Time: Oct 16 2021 2:12P Dictated by: GEN MELTON MD This examination was interpreted and the report reviewed and electronically signed by: GEN MELTON MD on Oct 16 2021 2:16PM EST Thank you for allowing us to participate in the care of your patient. Should there be any questions regarding this interpretation, please call [phone]. If you are unable to reach us at the number above, please feel free to contact [facility] eRadiology at [phone]. [id number] N Normal [facility] aPTT PPPon 10-16-2021 aPTT Coag (PPP) [Time] 27.9 s Normal 23.0-32.4 [facility] Comment on above: Order Comment: Speci men Type: BLOOD SPECIMEN Ordering Facility: [facility] Address: [address] [place] [address] Performed By: #### M PNP #### [facility] ILLUMINA [facility] CLIA [id number] [address] [place] [address] [place] #### [id number] #### [facility] CLIA [id number] [address] [place] [address] Basic Metabolic Panelon 09-19 Calcium [Mass/Vol] 9.3 mg/dL Normal 8.2-10.2 [facility] Comment on above: Order Comment: PT IS NON FASTING Comment Results to PCP Performed By: #### C K, ESR, BMP, CRP #### [address] #### MYOG, ALDOLASE #### [facility] , Chloride [Moles/Vol] 92 mmol/L Low 95-114 [facility] Comment on above: Order Comment: PT IS NON FASTING Comment Results to PCP Performed By: #### C K, ESR, BMP, CRP #### [address] #### MYOG, ALDOLASE #### [facility] , CO2 [Moles/Vol] 25.3 mmol/L Normal 22.0-30.0 [facility] Comment on above: Order Comment: PT IS NON FASTING Comment Results to PCP Performed By: #### C K, ESR, BMP, CRP #### [address] #### MYOG, ALDOLASE #### [facility] , Creatinine [Mass/Vol] 0.58 mg/dL Normal 0.44-1.03 [facility] Comment on above: Order Comment: PT IS NON FASTING Comment Results to PCP Performed By: #### C K, ESR, BMP, CRP #### [address] #### MYOG, ALDOLASE #### [facility] , Estimated GFR ( Radha > 60 [facility] Comment on above: Order Comment: PT IS NON FASTING Comment Results to PCP Result Comment: GFR estimated reference range: According to KDOQI guidelines, <60 ml/min/1.73m2 is sufficient to diagnose a patient with chronic kidney disease. Performed By: #### C K, ESR, BMP, CRP #### [facility] [address] [place] [address] [place] #### MYOG, ALDOLASE #### [facility] , Estimated GFR (Non- Am > 60 [facility] Comment on above: Order Comment: PT IS NON FASTING Comment Results to PCP Performed By: #### C K, ESR, BMP, CRP #### [place] [address] [place] #### MYOG, ALDOLASE #### [facility] , Glucose [Mass/Vol] 126 mg/dL High 70-100 [facility] Comment on above: Order Comment: PT IS NON FASTING Comment Results to PCP Result Comment: [place] Glucose Reference Range is dependent on time and content of last meal. Glucose of more than 200 mg/dL in a nonstressed, ambulatory subject supports the diagnosis of Diabetes Mellitus. ADA recommended reference range Performed By: #### C K, ESR, BMP, CRP #### [facility] [address] [place] [address] #### MYOG, ALDOLASE #### [facility] , Potassium [Moles/Vol] 3.9 mmol/L Normal 3.5-5.1 [facility] Comment on above: Order Comment: PT IS NON FASTING Comment Results to PCP Performed By: #### C K, ESR, BMP, CRP #### [facility] [address] [place] [address] #### MYOG, ALDOLASE #### [facility] , Sodium [Moles/Vol] 131 mmol/L Low 136-146 [facility] Comment on above: Order Comment: PT IS NON FASTING Comment Results to PCP Performed By: #### C K, ESR, BMP, CRP #### [facility] [address] [place] [address] #### MYOG, ALDOLASE #### [facility] , Urea nitrogen [Mass/Vol] 11 mg/dL Normal 9-23 [facility] Comment on above: Order Comment: PT IS NON FASTING Comment Results to PCP Performed By: #### C K, ESR, BMP, CRP #### [facility] [address] [place] [address] [place] #### MYOG, ALDOLASE #### [facility] , Complete Blood Count Auto Di ffon 10-09-2021 Basophils (Bld) [#/Vol] 0.0 10*3/uL Normal 0.0-0.2 [facility] Comment on above: Order Comment: Comme nt Results to PCP Result Comment: PERF ORMED BY: [place] [address] PATHOLOGIST ACCOUNTING PRACTICE MANAGER IDANIA WHITESIDE M.D. Performed By: #### C K, ESR, BMP, CRP #### [address] #### MYOG, ALDOLASE #### [facility] , Basophils/100 WBC (Bld) 0.7 % Normal . [facility] Comment on above: Order Comment: Comme nt Results to PCP Performed By: #### C K, ESR, BMP, CRP #### [address] #### MYOG, ALDOLASE #### [facility] , Eosinophils (Bld) [#/Vol] 0.4 10*3/uL Normal 0.0-0.45 [facility] Comment on above: Order Comment: Comme nt Results to PCP Performed By: #### C K, ESR, BMP, CRP #### [address] #### MYOG, ALDOLASE #### [facility] , Eosinophils/100 WBC (Bld) 5.8 % Normal . [facility] Comment on above: Order Comment: Comme nt Results to PCP Performed By: #### C K, ESR, BMP, CRP #### [facility] [address] [place] [address] #### MYOG, ALDOLASE #### [facility] , Erythrocyte distribution width (RBC) [Ratio] 15.5 % High 11.9-15.3 [facility] Comment on above: Order Comment: Comme nt Results to PCP Performed By: #### C K, ESR, BMP, CRP #### [address] #### MYOG, ALDOLASE #### [facility] , Hematocrit (Bld) [Volume fraction] 31.3 % Low 34.0-46.4 [facility] Comment on above: Order Comment: Comme nt Results to PCP Performed By: #### C K, ESR, BMP, CRP #### [address] #### MYOG, ALDOLASE #### [facility] , Hemoglobin (Bld) [Mass/Vol] 10.0 g/dL Low 11.8-15.4 [facility] Comment on above: Order Comment: Comme nt Results to PCP Performed By: #### C K, ESR, BMP, CRP #### [address] #### MYOG, ALDOLASE #### [facility] , Lymphocytes (Bld) [#/Vol] 0.9 10*3/uL Low 1.00-4.8 [facility] Comment on above: Order Comment: Comme nt Results to PCP Performed By: #### C K, ESR, BMP, CRP #### [address] #### MYOG, ALDOLASE #### [facility] , Lymphocytes/100 WBC (Bld) 15.5 % Normal . [facility] Comment on above: Order Comment: Comme nt Results to PCP Performed By: #### C K, ESR, BMP, CRP #### [facility] [address] [place] [address] [place] #### MYOG, ALDOLASE #### [facility] , MCH (RBC) [Entitic mass] 30.5 pg Normal 24.7-34.3 [facility] Comment on above: Order Comment: Comme nt Results to PCP Performed By: #### C K, ESR, BMP, CRP #### [place] [address] [place] #### MYOG, ALDOLASE #### [facility] , MCV (RBC) [Entitic vol] 95.4 fL Normal 80-100 [facility] Comment on above: Order Comment: Comme nt Results to PCP Performed By: #### C K, ESR, BMP, CRP #### [facility] [address] [place] [address] [place] #### MYOG, ALDOLASE #### [facility] , Mean Corpuscular HGB Conc 32.0 g/dL Normal 32.0-35.0 [facility] Comment on above: Order Comment: Comme nt Results to PCP Performed By: #### C K, ESR, BMP, CRP #### [facility] [address] [place] [address] #### MYOG, ALDOLASE #### [facility] , Monocytes (Bld) [#/Vol] 0.3 10*3/uL Normal 0.0-0.8 [facility] Comment on above: Order Comment: Comme nt Results to PCP Performed By: #### C K, ESR, BMP, CRP #### [facility] [address] [place] [address] [place] #### MYOG, ALDOLASE #### [facility] , Monocytes/100 WBC (Bld) 5.6 % Normal . [facility] Comment on above: Order Comment: Comme nt Results to PCP Performed By: #### C K, ESR, BMP, CRP #### [facility] [address] [place] [address] [place] #### MYOG, ALDOLASE #### [facility] , Neutrophils (Bld) [#/Vol] 4.4 10*3/uL Normal 1.8-7.7 [facility] Comment on above: Order Comment: Comme nt Results to PCP Performed By: #### C K, ESR, BMP, CRP #### [facility] [address] [place] [address] [place] #### MYOG, ALDOLASE #### [facility] , Neutrophils/100 WBC (Bld) 72.4 % Normal . [facility] Comment on above: Order Comment: Comme nt Results to PCP Performed By: #### C K, ESR, BMP, CRP #### [facility] [address] [place] [address] #### MYOG, ALDOLASE #### [facility] , Nucleated RBC/100 WBC (Bld) [Ratio] 0.1 % Normal 0-0.5 [facility] Comment on above: Order Comment: Comme nt Results to PCP Performed By: #### C K, ESR, BMP, CRP #### [address] #### MYOG, ALDOLASE #### [facility] , Platelet mean volume (Bld) [Entitic vol] 7.9 fL Normal 6.3-10.7 [facility] Comment on above: Order Comment: Comme nt Results to PCP Performed By: #### C K, ESR, BMP, CRP #### [address] #### MYOG, ALDOLASE #### [facility] , Platelets (Bld) [#/Vol] 390 10*3/uL Normal 150-450 [facility] Comment on above: Order Comment: Comme nt Results to PCP Performed By: #### C K, ESR, BMP, CRP #### [address] #### MYOG, ALDOLASE #### [facility] , RBC (Bld) [#/Vol] 3.28 10*6/uL Low 3.60-5.00 [facility] Comment on above: Order Comment: Comme nt Results to PCP Performed By: #### C K, ESR, BMP, CRP #### [address] #### MYOG, ALDOLASE #### [facility] , WBC (Bld) [#/Vol] 6.1 10*3/uL Normal 4.5-11.0 [facility] Comment on above: Order Comment: Comme nt Results to PCP Performed By: #### C K, ESR, BMP, CRP #### [address] #### MYOG, ALDOLASE #### [facility] , Magnesiumon 10-09-2021 Magnesium [Mass/Vol] 1.3 mg/dL Low 1.6-2.6 [facility] Comment on above: Order Comment: PT IS NON FASTING Comment Results to PCP Result Comment: PERF ORMED BY: [place] [address] PATHOLOGIST ACCOUNTING PRACTICE MANAGER IDANIA WHITESIDE M.D. Performed By: #### C K, ESR, BMP, CRP #### [address] #### MYOG, ALDOLASE #### [facility] , Complete Blood Count Auto Di ffon 09-30-2021 Basophils (Bld) [#/Vol] 0.1 10*3/uL Normal 0.0-0.2 [facility] Comment on above: Result Comment: PERF ORMED BY: [place] [address] PATHOLOGIST ACCOUNTING PRACTICE MANAGER IDANIA WHITESIDE M.D. Performed By: #### C K, ESR, BMP, CRP #### [address] #### MYOG, ALDOLASE #### [facility] , Basophils/100 WBC (Bld) 1.0 % Normal . [facility] Comment on above: Performed By: #### C K, ESR, BMP, CRP #### [place] [address] [place] #### MYOG, ALDOLASE #### [facility] , Eosinophils (Bld) [#/Vol] 0.1 10*3/uL Normal 0.0-0.45 [facility] Comment on above: Performed By: #### C K, ESR, BMP, CRP #### [place] [address] [place] #### MYOG, ALDOLASE #### [facility] , Eosinophils/100 WBC (Bld) 1.3 % Normal . [facility] Comment on above: Performed By: #### C K, ESR, BMP, CRP #### [place] [address] [place] #### MYOG, ALDOLASE #### [facility] , Erythrocyte distribution width (RBC) [Ratio] 15.0 % Normal 11.9-15.3 [facility] Comment on above: Performed By: #### C K, ESR, BMP, CRP #### [address] #### MYOG, ALDOLASE #### [facility] , Hematocrit (Bld) [Volume fraction] 30.5 % Low 34.0-46.4 [facility] Comment on above: Performed By: #### C K, ESR, BMP, CRP #### [place] [address] [place] #### MYOG, ALDOLASE #### [facility] , Hemoglobin (Bld) [Mass/Vol] 9.7 g/dL Low 11.8-15.4 [facility] Comment on above: Performed By: #### C K, ESR, BMP, CRP #### [place] [address] [place] #### MYOG, ALDOLASE #### [facility] , Lymphocytes (Bld) [#/Vol] 0.8 10*3/uL Low 1.00-4.8 [facility] Comment on above: Performed By: #### C K, ESR, BMP, CRP #### [place] [address] [place] #### MYOG, ALDOLASE #### [facility] , Lymphocytes/100 WBC (Bld) 11.5 % Normal . [facility] Comment on above: Performed By: #### C K, ESR, BMP, CRP #### [facility] [address] [place] [address] [place] #### MYOG, ALDOLASE #### [facility] , MCH (RBC) [Entitic mass] 30.2 pg Normal 24.7-34.3 [facility] Comment on above: Performed By: #### C K, ESR, BMP, CRP #### [place] [address] [place] #### MYOG, ALDOLASE #### [facility] , MCV (RBC) [Entitic vol] 94.6 fL Normal 80-100 F [facility] Comment on above: Performed By: #### C K, ESR, BMP, CRP #### [facility] [address] [place] [address] #### MYOG, ALDOLASE #### [facility] , Mean Corpuscular HGB Conc 31.9 g/dL Low 32.0-35.0 [facility] Comment on above: Performed By: #### C K, ESR, BMP, CRP #### [address] #### MYOG, ALDOLASE #### [facility] , Monocytes (Bld) [#/Vol] 0.6 10*3/uL Normal 0.0-0.8 [facility] Comment on above: Performed By: #### C K, ESR, BMP, CRP #### [facility] [address] [place] [address] [place] #### MYOG, ALDOLASE #### [facility] , Monocytes/100 WBC (Bld) 8.5 % Normal . [facility] Comment on above: Performed By: #### C K, ESR, BMP, CRP #### [place] [address] [place] #### MYOG, ALDOLASE #### [facility] , Neutrophils (Bld) [#/Vol] 5.7 10*3/uL Normal 1.8-7.7 [facility] Comment on above: Performed By: #### C K, ESR, BMP, CRP #### [facility] [address] [place] [address] #### MYOG, ALDOLASE #### [facility] , Neutrophils/100 WBC (Bld) 77.7 % Normal . [facility] Comment on above: Performed By: #### C K, ESR, BMP, CRP #### [facility] [address] [place] [address] #### MYOG, ALDOLASE #### [facility] , Nucleated RBC/100 WBC (Bld) [Ratio] 0.0 % Normal 0-0.5 [facility] Comment on above: Performed By: #### C K, ESR, BMP, CRP #### [facility] [address] [place] [address] #### MYOG, ALDOLASE #### [facility] , Platelet mean volume (Bld) [Entitic vol] 7.4 fL Normal 6.3-10.7 [facility] Comment on above: Performed By: #### C K, ESR, BMP, CRP #### [facility] [address] [place] [address] [place] #### MYOG, ALDOLASE #### [facility] , Platelets (Bld) [#/Vol] 251 10*3/uL Normal 150-450 [facility] Comment on above: Performed By: #### C K, ESR, BMP, CRP #### [facility] [address] [place] [address] [place] #### MYOG, ALDOLASE #### [facility] , RBC (Bld) [#/Vol] 3.23 10*6/uL Low 3.60-5.00 [facility] Comment on above: Performed By: #### C K, ESR, BMP, CRP #### [facility] [address] [place] [address] [place] #### MYOG, ALDOLASE #### [facility] , WBC (Bld) [#/Vol] 7.3 10*3/uL Normal 4.5-11.0 [facility] Comment on above: Performed By: #### C K, ESR, BMP, CRP #### [facility] [address] [place] [address] [place] #### MYOG, ALDOLASE #### [facility] , Comprehensive Metabolic Pane huber 09-30-2021 Albumin [Mass/Vol] 2.6 g/dL Low 3.2-5.5 [facility] Comment on above: Performed By: #### C K, ESR, BMP, CRP #### [facility] [address] [place] [address] [place] #### MYOG, ALDOLASE #### [facility] , Albumin/Globulin [Mass ratio] 0.7 {ratio} Normal [facility] Comment on above: Performed By: #### C K, ESR, BMP, CRP #### [facility] [address] [place] [address] #### MYOG, ALDOLASE #### [facility] , ALP [Catalytic activity/Vol] 82 U/L Normal 32-92 [facility] Comment on above: Performed By: #### C K, ESR, BMP, CRP #### [facility] [address] [place] [address] [place] #### MYOG, ALDOLASE #### [facility] , ALT [Catalytic activity/Vol] 21 U/L Normal 10-60 [facility] Comment on above: Performed By: #### C K, ESR, BMP, CRP #### [facility] [address] [place] [address] [place] #### MYOG, ALDOLASE #### [facility] , AST [Catalytic activity/Vol] 38 U/L Normal 10-42 [facility] Comment on above: Performed By: #### C K, ESR, BMP, CRP #### [facility] [address] [place] [address] #### MYOG, ALDOLASE #### [facility] , Bilirubin [Mass/Vol] 0.5 mg/dL Normal 0.3-1.2 [facility] Comment on above: Performed By: #### C K, ESR, BMP, CRP #### [facility] [address] [place] [address] #### MYOG, ALDOLASE #### [facility] , Calcium [Mass/Vol] 8.5 mg/dL Normal 8.2-10.2 [facility] Comment on above: Performed By: #### C K, ESR, BMP, CRP #### [facility] [address] [place] [address] [place] #### MYOG, ALDOLASE #### [facility] , Chloride [Moles/Vol] 95 mmol/L Normal 95-114 [facility] Comment on above: Performed By: #### C K, ESR, BMP, CRP #### [place] [address] [place] #### MYOG, ALDOLASE #### [facility] , CO2 [Moles/Vol] 22.4 mmol/L Normal 22.0-30.0 [facility] Comment on above: Performed By: #### C K, ESR, BMP, CRP #### [facility] [address] [place] [address] [place] #### MYOG, ALDOLASE #### [facility] , Creatinine [Mass/Vol] 0.45 mg/dL Normal 0.44-1.03 [facility] Comment on above: Performed By: #### C K, ESR, BMP, CRP #### [address] [place] [address] [place] #### MYOG, ALDOLASE #### [facility] , Creatinine Clr Calc Pharmacy 69.79 [facility] Comment on above: Performed By: #### C K, ESR, BMP, CRP #### [place] [address] [place] #### MYOG, ALDOLASE #### [facility] , Estimated GFR ( Radha > 60 [facility] Comment on above: Result Comment: GFR estimated reference range: According to KDOQI guidelines, <60 ml/min/1.73m2 is sufficient to diagnose a patient with chronic kidney disease. Performed By: #### C K, ESR, BMP, CRP #### [address] #### MYOG, ALDOLASE #### [facility] , Estimated GFR (Non- Am > 60 [facility] Comment on above: Performed By: #### C K, ESR, BMP, CRP #### [place] [address] [place] #### MYOG, ALDOLASE #### [facility] , Globulin (S) [Mass/Vol] 3.5 g/dL Normal [facility] Comment on above: Performed By: #### C K, ESR, BMP, CRP #### [place] [address] [place] #### MYOG, ALDOLASE #### [facility] , Glucose [Mass/Vol] 97 mg/dL Normal 70-100 [facility] Comment on above: Result Comment: [place] om Glucose Reference Range is dependent on time and content of last meal. Glucose of more than 200 mg/dL in a nonstressed, ambulatory subject supports the diagnosis of Diabetes Mellitus. ADA recommended reference range Performed By: #### C K, ESR, BMP, CRP #### [place] [address] [place] #### MYOG, ALDOLASE #### [facility] , Potassium [Moles/Vol] 4.5 mmol/L Normal 3.5-5.1 [facility] Comment on above: Performed By: #### C K, ESR, BMP, CRP #### [place] [address] [place] #### MYOG, ALDOLASE #### [facility] , Protein [Mass/Vol] 6.1 g/dL Normal 6.1-7.9 [facility] Comment on above: Performed By: #### C K, ESR, BMP, CRP #### [address] #### MYOG, ALDOLASE #### [facility] , Sodium [Moles/Vol] 126 mmol/L Low 136-146 [facility] Comment on above: Performed By: #### C K, ESR, BMP, CRP #### [address] #### MYOG, ALDOLASE #### [facility] , Urea nitrogen [Mass/Vol] 6 mg/dL Low 9-23 [facility] Comment on above: Performed By: #### C K, ESR, BMP, CRP #### [address] #### MYOG, ALDOLASE #### [facility] , Magnesiumon 09-30-2021 Magnesium [Mass/Vol] 0.9 mg/dL Off scale low 1.6-2.6 [facility] Comment on above: Result Comment: Crit ical value result called at 0826 on 09/30/21 PERFORMED BY: [place] [address] PATHOLOGIST ACCOUNTING PRACTICE MANAGER IDANIA WHITESIDE M.D. Performed By: #### C K, ESR, BMP, CRP #### [place] [address] [place] #### MYOG, ALDOLASE #### [facility] , Basic Metabolic Panelon 09-18 Calcium [Mass/Vol] 8.1 mg/dL Low 8.2-10.2 [facility] Comment on above: Performed By: #### C K, ESR, BMP, CRP #### [facility] [address] [place] [address] [place] #### MYOG, ALDOLASE #### [facility] , Chloride [Moles/Vol] 94 mmol/L Low 95-114 [facility] Comment on above: Performed By: #### C K, ESR, BMP, CRP #### [facility] [address] [place] [address] #### MYOG, ALDOLASE #### [facility] , CO2 [Moles/Vol] 22.9 mmol/L Normal 22.0-30.0 [facility] Comment on above: Performed By: #### C K, ESR, BMP, CRP #### [facility] [address] [place] [address] #### MYOG, ALDOLASE #### [facility] , Creatinine [Mass/Vol] 0.55 mg/dL Normal 0.44-1.03 [facility] Comment on above: Performed By: #### C K, ESR, BMP, CRP #### [facility] [address] [place] [address] [place] #### MYOG, ALDOLASE #### [facility] , Creatinine Clr Calc Pharmacy 71.49 [facility] Comment on above: Performed By: #### C K, ESR, BMP, CRP #### [facility] [address] [place] [address] [place] #### MYOG, ALDOLASE #### [facility] , Estimated GFR ( Radha > 60 [facility] Comment on above: Result Comment: GFR estimated reference range: According to KDOQI guidelines, <60 ml/min/1.73m2 is sufficient to diagnose a patient with chronic kidney disease. Performed By: #### C K, ESR, BMP, CRP #### [place] [address] [place] #### MYOG, ALDOLASE #### [facility] , Estimated GFR (Non- Am > 60 Normal [facility] Comment on above: Performed By: #### C K, ESR, BMP, CRP #### [place] [address] [place] #### MYOG, ALDOLASE #### [facility] , Glucose [Mass/Vol] 138 mg/dL High 70-100 [facility] Comment on above: Result Comment: [place] Glucose Reference Range is dependent on time and content of last meal. Glucose of more than 200 mg/dL in a nonstressed, ambulatory subject supports the diagnosis of Diabetes Mellitus. ADA recommended reference range Performed By: #### C K, ESR, BMP, CRP #### [place] [address] [place] #### MYOG, ALDOLASE #### [facility] , Potassium [Moles/Vol] 4.5 mmol/L Normal 3.5-5.1 [facility] Comment on above: Performed By: #### C K, ESR, BMP, CRP #### [place] [address] [place] #### MYOG, ALDOLASE #### [facility] , Sodium [Moles/Vol] 126 mmol/L Low 136-146 [facility] Comment on above: Performed By: #### C K, ESR, BMP, CRP #### [place] [address] [place] #### MYOG, ALDOLASE #### [facility] , Urea nitrogen [Mass/Vol] 6 mg/dL Low 9-23 [facility] Comment on above: Performed By: #### C K, ESR, BMP, CRP #### [address] #### MYOG, ALDOLASE #### [facility] , Complete Blood Count Auto Di ffon 09-29-2021 Basophils (Bld) [#/Vol] 0.1 10*3/uL Normal 0.0-0.2 [facility] Comment on above: Result Comment: PERF ORMED BY: [place] [address] PATHOLOGIST ACCOUNTING PRACTICE MANAGER IDANIA WHITESIDE M.D. Performed By: #### C K, ESR, BMP, CRP #### [address] #### MYOG, ALDOLASE #### [facility] , Basophils/100 WBC (Bld) 1.1 % Normal . [facility] Comment on above: Performed By: #### C K, ESR, BMP, CRP #### [address] #### MYOG, ALDOLASE #### [facility] , Eosinophils (Bld) [#/Vol] 0.1 10*3/uL Normal 0.0-0.45 [facility] Comment on above: Performed By: #### C K, ESR, BMP, CRP #### [address] #### MYOG, ALDOLASE #### [facility] , Eosinophils/100 WBC (Bld) 1.5 % Normal . [facility] Comment on above: Performed By: #### C K, ESR, BMP, CRP #### [place] [address] [place] #### MYOG, ALDOLASE #### [facility] , Erythrocyte distribution width (RBC) [Ratio] 15.2 % Normal 11.9-15.3 [facility] Comment on above: Performed By: #### C K, ESR, BMP, CRP #### [address] #### MYOG, ALDOLASE #### [facility] , Hematocrit (Bld) [Volume fraction] 29.6 % Low 34.0-46.4 [facility] Comment on above: Performed By: #### C K, ESR, BMP, CRP #### [address] #### MYOG, ALDOLASE #### [facility] , Hemoglobin (Bld) [Mass/Vol] 9.7 g/dL Low 11.8-15.4 [facility] Comment on above: Performed By: #### C K, ESR, BMP, CRP #### [address] #### MYOG, ALDOLASE #### [facility] , Lymphocytes (Bld) [#/Vol] 0.6 10*3/uL Low 1.00-4.8 [facility] Comment on above: Performed By: #### C K, ESR, BMP, CRP #### [address] #### MYOG, ALDOLASE #### [facility] , Lymphocytes/100 WBC (Bld) 8.2 % Normal . [facility] Comment on above: Performed By: #### C K, ESR, BMP, CRP #### [place] [address] [place] #### MYOG, ALDOLASE #### [facility] , MCH (RBC) [Entitic mass] 30.9 pg Normal 24.7-34.3 [facility] Comment on above: Performed By: #### C K, ESR, BMP, CRP #### [place] [address] [place] #### MYOG, ALDOLASE #### [facility] , MCV (RBC) [Entitic vol] 94.2 fL Normal 80-100 [facility] Comment on above: Performed By: #### C K, ESR, BMP, CRP #### [facility] [address] [place] [address] [place] #### MYOG, ALDOLASE #### [facility] , Mean Corpuscular HGB Conc 32.8 g/dL Normal 32.0-35.0 [facility] Comment on above: Performed By: #### C K, ESR, BMP, CRP #### [place] [address] [place] #### MYOG, ALDOLASE #### [facility] , Monocytes (Bld) [#/Vol] 0.4 10*3/uL Normal 0.0-0.8 [facility] Comment on above: Performed By: #### C K, ESR, BMP, CRP #### [place] [address] [place] #### MYOG, ALDOLASE #### [facility] , Monocytes/100 WBC (Bld) 5.2 % Normal . F [facility] Comment on above: Performed By: #### C K, ESR, BMP, CRP #### [address] #### MYOG, ALDOLASE #### [facility] , Neutrophils (Bld) [#/Vol] 5.8 10*3/uL Normal 1.8-7.7 [facility] Comment on above: Performed By: #### C K, ESR, BMP, CRP #### [place] [address] [place] #### MYOG, ALDOLASE #### [facility] , Neutrophils/100 WBC (Bld) 84.0 % Normal . [facility] Comment on above: Performed By: #### C K, ESR, BMP, CRP #### [place] [address] [place] #### MYOG, ALDOLASE #### [facility] , Nucleated RBC/100 WBC (Bld) [Ratio] 0.1 % Normal 0-0.5 [facility] Comment on above: Performed By: #### C K, ESR, BMP, CRP #### [address] #### MYOG, ALDOLASE #### [facility] , Platelet mean volume (Bld) [Entitic vol] 7.7 fL Normal 6.3-10.7 [facility] Comment on above: Performed By: #### C K, ESR, BMP, CRP #### [facility] [address] [place] [address] [place] #### MYOG, ALDOLASE #### [facility] , Platelets (Bld) [#/Vol] 239 10*3/uL Normal 150-450 [facility] Comment on above: Performed By: #### C K, ESR, BMP, CRP #### [address] #### MYOG, ALDOLASE #### [facility] , RBC (Bld) [#/Vol] 3.15 10*6/uL Low 3.60-5.00 [facility] Comment on above: Performed By: #### C K, ESR, BMP, CRP #### [place] [address] [place] #### MYOG, ALDOLASE #### [facility] , WBC (Bld) [#/Vol] 6.9 10*3/uL Normal 4.5-11.0 [facility] Comment on above: Performed By: #### C K, ESR, BMP, CRP #### [place] [address] [place] #### MYOG, ALDOLASE #### [facility] , Magnesiumon 09-29-2021 Magnesium [Mass/Vol] 1.3 mg/dL Low 1.6-2.6 [facility] Comment on above: Result Comment: PERF ORMED BY: [place] [address] PATHOLOGIST ACCOUNTING PRACTICE MANAGER IDANIA WHITESIDE M.D. Performed By: #### C K, ESR, BMP, CRP #### [address] #### MYOG, ALDOLASE #### [facility] , Partial Thromboplastin Timeo n 09-29-2021 aPTT Coag (Bld) [Time] 44.5 s High 25.1-36.5 [facility] Comment on above: Result Comment: PERF ORMED BY: [place] [address] PATHOLOGIST ACCOUNTING PRACTICE MANAGER IDANIA WHITESIDE M.D. Performed By: #### C K, ESR, BMP, CRP #### [address] #### MYOG, ALDOLASE #### [facility] , Prothrombin Time INRon 09-29 INR Coag (PPP) [Relative time] 1.6 {INR} Normal [facility] Comment on above: Result Comment: INR Therapeutic Range A) Pre- and Peroperative OAT started two weeks before surgery. NOT HIP SURGERY: 1.5 - 2.5 HIP SURGERY: 2 - 3 B) Primary and secondary prevention of venous THROMBOSIS: 2 - 3 C) Active venous thrombosis, pulmonary embolism and prevention of recurrent venous thrombosis: 2 - 3 D) Prevention of arterial thromboembolism including patients with mechanical heart valves: 3 - 4.5 Performed By: #### C K, ESR, BMP, CRP #### [place] [address] [place] #### MYOG, ALDOLASE #### [facility] , PT Coag (PPP) [Time] 17.7 s High 9.0-12.9 [facility] Comment on above: Performed By: #### C K, ESR, BMP, CRP #### [address] #### MYOG, ALDOLASE #### [facility] , Stool Occult Blood (Guaiac)o n 09-29-2021 Stool Occult Blood (Guaiac) Occult Blood Negative for Occult Blood by Guaiac Methodology Reference range = Negative PERFORMED BY: [place] [address] PATHOLOGIST ACCOUNTING PRACTICE MANAGER IDANIA WHITESIDE M.D. Normal [facility] Comment on above: Performed By: #### T SH3 wRFLX, T4F, LIPID, [id number] #### [address] Complete Blood Count Auto Di ffon 09-28-2021 Basophils (Bld) [#/Vol] 0.1 10*3/uL Normal 0.0-0.2 [facility] Comment on above: Result Comment: PERF ORMED BY: [place] [address] PATHOLOGIST ACCOUNTING PRACTICE MANAGER IDANIA WHITESIDE M.D. Performed By: #### T SH3 wRFLX, T4F, LIPID, [id number] #### [address] Basophils/100 WBC (Bld) 0.9 % Normal . F [facility] Comment on above: Performed By: #### T SH3 wRFLX, T4F, LIPID, [id number] #### [place] [address] [place] Eosinophils (Bld) [#/Vol] 0.2 10*3/uL Normal 0.0-0.45 [facility] Comment on above: Performed By: #### T SH3 wRFLX, T4F, LIPID, [id number] #### [place] [address] [place] Eosinophils/100 WBC (Bld) 2.4 % Normal . [facility] Comment on above: Performed By: #### T SH3 wRFLX, T4F, LIPID, [id number] #### [address] Erythrocyte distribution width (RBC) [Ratio] 15.5 % High 11.9-15.3 [facility] Comment on above: Performed By: #### T SH3 wRFLX, T4F, LIPID, [id number] #### [address] Hematocrit (Bld) [Volume fraction] 27.3 % Low 34.0-46.4 [facility] Comment on above: Performed By: #### T SH3 wRFLX, T4F, LIPID, [id number] #### [address] Hemoglobin (Bld) [Mass/Vol] 8.9 g/dL Low 11.8-15.4 [facility] Comment on above: Performed By: #### T SH3 wRFLX, T4F, LIPID, [id number] #### [address] Lymphocytes (Bld) [#/Vol] 1.0 10*3/uL Normal 1.00-4.8 [facility] Comment on above: Performed By: #### T SH3 wRFLX, T4F, LIPID, [id number] #### [address] Lymphocytes/100 WBC (Bld) 15.3 % Normal . [facility] Comment on above: Performed By: #### T SH3 wRFLX, T4F, LIPID, [id number] #### [address] MCH (RBC) [Entitic mass] 30.9 pg Normal 24.7-34.3 [facility] Comment on above: Performed By: #### T SH3 wRFLX, T4F, LIPID, [id number] #### [address] MCV (RBC) [Entitic vol] 94.9 fL Normal 80-100 F [facility] Comment on above: Performed By: #### T SH3 wRFLX, T4F, LIPID, [id number] #### [facility] [address] Mean Corpuscular HGB Conc 32.6 g/dL Normal 32.0-35.0 [facility] Comment on above: Performed By: #### T SH3 wRFLX, T4F, LIPID, [id number] #### [place] [address] [place] Monocytes (Bld) [#/Vol] 0.5 10*3/uL Normal 0.0-0.8 [facility] Comment on above: Performed By: #### T SH3 wRFLX, T4F, LIPID, [id number] #### [address] Monocytes/100 WBC (Bld) 8.6 % Normal . [facility] Comment on above: Performed By: #### T SH3 wRFLX, T4F, LIPID, [id number] #### [place] [address] [place] Neutrophils (Bld) [#/Vol] 4.6 10*3/uL Normal 1.8-7.7 [facility] Comment on above: Performed By: #### T SH3 wRFLX, T4F, LIPID, [id number] #### [place] [address] [place] Neutrophils/100 WBC (Bld) 72.8 % Normal . [facility] Comment on above: Performed By: #### T SH3 wRFLX, T4F, LIPID, [id number] #### [place] [address] [place] Nucleated RBC/100 WBC (Bld) [Ratio] 0.1 % Normal 0-0.5 [facility] Comment on above: Performed By: #### T SH3 wRFLX, T4F, LIPID, [id number] #### [place] [address] [place] Platelet mean volume (Bld) [Entitic vol] 7.4 fL Normal 6.3-10.7 [facility] Comment on above: Performed By: #### T SH3 wRFLX, T4F, LIPID, [id number] #### [facility] [address] Platelets (Bld) [#/Vol] 227 10*3/uL Normal 150-450 [facility] Comment on above: Performed By: #### T SH3 wRFLX, T4F, LIPID, [id number] #### [facility] [address] RBC (Bld) [#/Vol] 2.88 10*6/uL Low 3.60-5.00 [facility] Comment on above: Performed By: #### T SH3 wRFLX, T4F, LIPID, [id number] #### [facility] [address] WBC (Bld) [#/Vol] 6.3 10*3/uL Normal 4.5-11.0 [facility] Comment on above: Performed By: #### T SH3 wRFLX, T4F, LIPID, [id number] #### [facility] [address] Comprehensive Metabolic Pane huber 09-28-2021 Albumin [Mass/Vol] 2.4 g/dL Low 3.2-5.5 [facility] Comment on above: Performed By: #### T SH3 wRFLX, T4F, LIPID, [id number] #### [facility] [address] Albumin/Globulin [Mass ratio] 0.8 {ratio} Normal [facility] Comment on above: Performed By: #### T SH3 wRFLX, T4F, LIPID, [id number] #### [facility] [address] ALP [Catalytic activity/Vol] 89 U/L Normal 32-92 [facility] Comment on above: Performed By: #### T SH3 wRFLX, T4F, LIPID, [id number] #### [facility] [address] ALT [Catalytic activity/Vol] 21 U/L Normal 10-60 [facility] Comment on above: Performed By: #### T SH3 wRFLX, T4F, LIPID, [id number] #### [facility] [address] AST [Catalytic activity/Vol] 36 U/L Normal 10-42 [facility] Comment on above: Performed By: #### T SH3 wRFLX, T4F, LIPID, [id number] #### [facility] [address] Bilirubin [Mass/Vol] 0.6 mg/dL Normal 0.3-1.2 [facility] Comment on above: Performed By: #### T SH3 wRFLX, T4F, LIPID, [id number] #### [facility] [address] [place] [address] Calcium [Mass/Vol] 7.2 mg/dL Low 8.2-10.2 [facility] Comment on above: Performed By: #### T SH3 wRFLX, T4F, LIPID, [id number] #### [address] Chloride [Moles/Vol] 91 mmol/L Low 95-114 [facility] Comment on above: Performed By: #### T SH3 wRFLX, T4F, LIPID, [id number] #### [facility] [address] [place] [address] CO2 [Moles/Vol] 26.6 mmol/L Normal 22.0-30.0 [facility] Comment on above: Performed By: #### T SH3 wRFLX, T4F, LIPID, [id number] #### [address] Creatinine [Mass/Vol] 0.62 mg/dL Normal 0.44-1.03 [facility] Comment on above: Performed By: #### T SH3 wRFLX, T4F, LIPID, [id number] #### [facility] [address] Creatinine Clr Calc Pharmacy 70.25 [facility] Comment on above: Performed By: #### T SH3 wRFLX, T4F, LIPID, [id number] #### [facility] [address] Estimated GFR ( Radha > 60 [facility] Comment on above: Result Comment: GFR estimated reference range: According to KDOQI guidelines, <60 ml/min/1.73m2 is sufficient to diagnose a patient with chronic kidney disease. Performed By: #### T SH3 wRFLX, T4F, LIPID, [id number] #### [facility] [address] Estimated GFR (Non- Am > 60 [facility] Comment on above: Performed By: #### T SH3 wRFLX, T4F, LIPID, [id number] #### [address] Globulin (S) [Mass/Vol] 3.2 g/dL Normal [facility] Comment on above: Performed By: #### T SH3 wRFLX, T4F, LIPID, [id number] #### [address] Glucose [Mass/Vol] 90 mg/dL Normal 70-100 [facility] Comment on above: Result Comment: [place] Glucose Reference Range is dependent on time and content of last meal. Glucose of more than 200 mg/dL in a nonstressed, ambulatory subject supports the diagnosis of Diabetes Mellitus. ADA recommended reference range Performed By: #### T SH3 wRFLX, T4F, LIPID, [id number] #### [facility] [address] [place] [address] Potassium [Moles/Vol] 3.8 mmol/L Normal 3.5-5.1 [facility] Comment on above: Performed By: #### T SH3 wRFLX, T4F, LIPID, [id number] #### [address] Protein [Mass/Vol] 5.6 g/dL Low 6.1-7.9 [facility] Comment on above: Performed By: #### T SH3 wRFLX, T4F, LIPID, [id number] #### [facility] [address] Sodium [Moles/Vol] 129 mmol/L Low 136-146 [facility] Comment on above: Performed By: #### T SH3 wRFLX, T4F, LIPID, [id number] #### [facility] [address] Urea nitrogen [Mass/Vol] 12 mg/dL Normal - [facility] Comment on above: Performed By: #### T SH3 wRFLX, T4F, LIPID, [id number] #### [facility] [address] Consultation Noteon 09-29-19 Consultation Note [id number] .00CD:127 Normal [facility] ED Note-Physicianon 09-29-19 ED Note-Physician [id number]#1 .00CD:127 Normal [facility] Insurance Correspondence Off iceon 09-28-2021 Insurance Correspondence Office [id number]#1 .00CD:127 Normal [facility] Magnesiumon 09-28-2021 Magnesium [Mass/Vol] 0.9 mg/dL Off scale low 1.6-2.6 [facility] Comment on above: Result Comment: Resu lts called at 0632 on 09/28/21 Performed By: #### T SH3 wRFLX, T4F, LIPID, [id number] #### [facility] [address] RAD - CT Reporton 09-28-2021 RAD - CT Report [id number]#1 .00CD:127 Normal [facility] Thyroid Stimulating Hormoneo n 09-28-2021 TSH Qn 9.77 m[IU]/L High 0.45-5.33 [facility] Comment on above: Performed By: #### T SH3 wRFLX, T4F, LIPID, [id number] #### [facility] [address] [place] [id number] [facility] Vitamin D 25 Hydroxy Totalon 09-28-2021 Vitamin D 25 Hydroxy Total < 7.0 Low 30-100 [facility] Comment on above: Result Comment: [place] MIN D STATUS 25(OH)VITAMIN D RANGE (ng/mL) Deficient <20 Insufficient 20 to <30 Sufficient 30 to 100 Reference: Bandar MF,Caar NC, Marissa NICHOLAS, et al. Evaluation,treatment, and prevention of vitamin D deficiency; an Endocrine Society clinical practice guideline. JCEM. 2010; 96(7):1911-30. PERFORMED BY: [place] [address] PATHOLOGIST ACCOUNTING PRACTICE MANAGER IDANIA WHITESIDE M.D. Performed By: #### T SH3 wRFLX, T4F, LIPID, [id number] #### [address] A1C with Estimated Average G luon 09-27-2021 Glucose [Mass/Vol] 111 mg/dL Normal [facility] Comment on above: Order Comment: Comme nt please add on Result Comment: PERF ORMED BY: [place] [address] PATHOLOGIST ACCOUNTING PRACTICE MANAGER IDANIA WHITESIDE M.D. Performed By: #### C K, ESR, BMP, CRP #### [facility] [address] [place] [address] [place] #### MYOG, ALDOLASE #### [facility] , HbA1c (Bld) [Mass fraction] 5.5 % Normal 4.3-5.6 [facility] Comment on above: Order Comment: Comme nt please add on Result Comment: Incr eased risk for diabetes: 5.7 - 6.4 diabetes: >6.4 glycemic control for adults with diabetes: <7.0 Performed By: #### C K, ESR, BMP, CRP #### [place] [address] [place] #### MYOG, ALDOLASE #### [facility] , Cell Count Differential,CSFo n 09-27-2021 Appearance, CSF Clear Normal Clear [facility] Comment on above: Order Comment: Comme nt Tube 1 Performed By: #### C K, ESR, BMP, CRP #### [facility] [address] [place] [address] [place] #### MYOG, ALDOLASE #### [facility] , Order Comment: Comme nt Tube 3 Color, CSF Colorless Normal Colorless [facility] Comment on above: Order Comment: Comme nt Tube 1 Performed By: #### C K, ESR, BMP, CRP #### [address] #### MYOG, ALDOLASE #### [facility] , Order Comment: Comme nt Tube 3 CSF Supernatant Color Colorless Normal Colorless [facility] Comment on above: Order Comment: Comme nt Tube 1 Performed By: #### C K, ESR, BMP, CRP #### [facility] [address] [place] [address] [place] #### MYOG, ALDOLASE #### [facility] , Order Comment: Comme nt Tube 3 CSF Volume, Total 13.0 mL [facility] Comment on above: Order Comment: Comme nt Tube 1 Performed By: #### C K, ESR, BMP, CRP #### [place] [address] [place] #### MYOG, ALDOLASE #### [facility] , Order Comment: Comme nt Tube 3 RBC, CSF 7 /uL [facility] Comment on above: Order Comment: Comme nt Tube 1 Result Comment: The reference interval and other method performance specifications have not been established for this body fluid. The test result must be integrated into the clinical context for interpretation. Performed By: #### C K, ESR, BMP, CRP #### [place] [address] [place] #### MYOG, ALDOLASE #### [facility] , TNC, CSF 0 /uL Normal 0-5 [facility] Comment on above: Order Comment: Comme nt Tube 1 Performed By: #### C K, ESR, BMP, CRP #### [place] [address] [place] #### MYOG, ALDOLASE #### [facility] , Order Comment: Comme nt Tube 3 Tube Number Tested, CSF Tube Number: 1 Normal [facility] Comment on above: Order Comment: Comme nt Tube 1 Result Comment: PERF ORMED BY: [place] [address] PATHOLOGIST ACCOUNTING PRACTICE MANAGER IDANIA WHITESIDE M.D. Performed By: #### C K, ESR, BMP, CRP #### [address] #### MYOG, ALDOLASE #### [facility] , Cell Count Differential,CSF #2on 09-27-2021 RBC, CSF 0 /uL Normal [facility] Comment on above: Order Comment: Comme nt Tube 3 Result Comment: The reference interval and other method performance specifications have not been established for this body fluid. The test result must be integrated into the clinical context for interpretation. Performed By: #### C K, ESR, BMP, CRP #### [place] [address] [place] #### MYOG, ALDOLASE #### [facility] , Tube Number Tested, CSF Tube Number: 3 Normal [facility] Comment on above: Order Comment: Comme nt Tube 3 Result Comment: PERF ORMED BY: [place] [address] PATHOLOGIST ACCOUNTING PRACTICE MANAGER IDANIA WHITESIDE M.D. Performed By: #### C K, ESR, BMP, CRP #### [address] #### MYOG, ALDOLASE #### [facility] , Complete Blood Count Auto Di ffon 09-27-2021 Basophils (Bld) [#/Vol] 0.0 10*3/uL Normal 0.0-0.2 [facility] Comment on above: Result Comment: PERF ORMED BY: [place] [address] PATHOLOGIST ACCOUNTING PRACTICE MANAGER IDANIA WHITESIDE M.D. Performed By: #### C K, ESR, BMP, CRP #### [address] #### MYOG, ALDOLASE #### [facility] , Basophils/100 WBC (Bld) 0.7 % Normal . [facility] Comment on above: Performed By: #### C K, ESR, BMP, CRP #### [address] #### MYOG, ALDOLASE #### [facility] , Eosinophils (Bld) [#/Vol] 0.1 10*3/uL Normal 0.0-0.45 [facility] Comment on above: Performed By: #### C K, ESR, BMP, CRP #### [address] #### MYOG, ALDOLASE #### [facility] , Eosinophils/100 WBC (Bld) 2.5 % Normal . [facility] Comment on above: Performed By: #### C K, ESR, BMP, CRP #### [place] [address] [place] #### MYOG, ALDOLASE #### [facility] , Erythrocyte distribution width (RBC) [Ratio] 15.4 % High 11.9-15.3 [facility] Comment on above: Performed By: #### C K, ESR, BMP, CRP #### [address] #### MYOG, ALDOLASE #### [facility] , Hematocrit (Bld) [Volume fraction] 28.7 % Low 34.0-46.4 [facility] Comment on above: Performed By: #### C K, ESR, BMP, CRP #### [address] #### MYOG, ALDOLASE #### [facility] , Hemoglobin (Bld) [Mass/Vol] 9.3 g/dL Low 11.8-15.4 [facility] Comment on above: Performed By: #### C K, ESR, BMP, CRP #### [address] #### MYOG, ALDOLASE #### [facility] , Lymphocytes (Bld) [#/Vol] 0.9 10*3/uL Low 1.00-4.8 [facility] Comment on above: Performed By: #### C K, ESR, BMP, CRP #### [address] #### MYOG, ALDOLASE #### [facility] , Lymphocytes/100 WBC (Bld) 15.7 % Normal . [facility] Comment on above: Performed By: #### C K, ESR, BMP, CRP #### [place] [address] [place] #### MYOG, ALDOLASE #### [facility] , MCH (RBC) [Entitic mass] 31.1 pg Normal 24.7-34.3 [facility] Comment on above: Performed By: #### C K, ESR, BMP, CRP #### [address] #### MYOG, ALDOLASE #### [facility] , MCV (RBC) [Entitic vol] 95.8 fL Normal 80-100 F [facility] Comment on above: Performed By: #### C K, ESR, BMP, CRP #### [facility] [address] [place] [address] [place] #### MYOG, ALDOLASE #### [facility] , Mean Corpuscular HGB Conc 32.5 g/dL Normal 32.0-35.0 [facility] Comment on above: Performed By: #### C K, ESR, BMP, CRP #### [place] [address] [place] #### MYOG, ALDOLASE #### [facility] , Monocytes (Bld) [#/Vol] 0.5 10*3/uL Normal 0.0-0.8 [facility] [facility] Comment on above: Performed By: #### C K, ESR, BMP, CRP #### [place] [address] [place] #### MYOG, ALDOLASE #### [facility] , Monocytes/100 WBC (Bld) 9.6 % Normal . [facility] Comment on above: Performed By: #### C K, ESR, BMP, CRP #### [place] [address] [place] #### MYOG, ALDOLASE #### [facility] , Neutrophils (Bld) [#/Vol] 4.0 10*3/uL Normal 1.8-7.7 [facility] Comment on above: Performed By: #### C K, ESR, BMP, CRP #### [place] [address] [place] #### MYOG, ALDOLASE #### [facility] , Neutrophils/100 WBC (Bld) 71.5 % Normal . [facility] Comment on above: Performed By: #### C K, ESR, BMP, CRP #### [place] [address] [place] #### MYOG, ALDOLASE #### [facility] , Nucleated RBC/100 WBC (Bld) [Ratio] 0.1 % Normal 0-0.5 [facility] Comment on above: Performed By: #### C K, ESR, BMP, CRP #### [facility] [address] [place] [address] #### MYOG, ALDOLASE #### [facility] , Platelet mean volume (Bld) [Entitic vol] 7.7 fL Normal 6.3-10.7 [facility] Comment on above: Performed By: #### C K, ESR, BMP, CRP #### [facility] [address] [place] [address] [place] #### MYOG, ALDOLASE #### [facility] , Platelets (Bld) [#/Vol] 261 10*3/uL Normal 150-450 [facility] Comment on above: Performed By: #### C K, ESR, BMP, CRP #### [address] #### MYOG, ALDOLASE #### [facility] , RBC (Bld) [#/Vol] 2.99 10*6/uL Low 3.60-5.00 [facility] Comment on above: Performed By: #### C K, ESR, BMP, CRP #### [facility] [address] [place] [address] [place] #### MYOG, ALDOLASE #### [facility] , WBC (Bld) [#/Vol] 5.6 10*3/uL Normal 4.5-11.0 [facility] Comment on above: Performed By: #### C K, ESR, BMP, CRP #### [facility] [address] [place] [address] [place] #### MYOG, ALDOLASE #### [facility] , Comprehensive Metabolic Pane huber 09-27-2021 Albumin [Mass/Vol] 2.5 g/dL Low 3.2-5.5 [facility] Comment on above: Performed By: #### C K, ESR, BMP, CRP #### [facility] [address] [place] [address] [place] #### MYOG, ALDOLASE #### [facility] , Albumin/Globulin [Mass ratio] 0.8 {ratio} Normal [facility] Comment on above: Performed By: #### C K, ESR, BMP, CRP #### [address] #### MYOG, ALDOLASE #### [facility] , ALP [Catalytic activity/Vol] 99 U/L High 32- [facility] Comment on above: Performed By: #### C K, ESR, BMP, CRP #### [address] #### MYOG, ALDOLASE #### [facility] , ALT [Catalytic activity/Vol] 25 U/L Normal 10-60 [facility] Comment on above: Performed By: #### C K, ESR, BMP, CRP #### [place] [address] [place] #### MYOG, ALDOLASE #### [facility] , AST [Catalytic activity/Vol] 40 U/L Normal 10-42 [facility] Comment on above: Performed By: #### C K, ESR, BMP, CRP #### [place] [address] [place] #### MYOG, ALDOLASE #### [facility] , Bilirubin [Mass/Vol] 0.7 mg/dL Normal 0.3-1.2 [facility] Comment on above: Performed By: #### C K, ESR, BMP, CRP #### [place] [address] [place] #### MYOG, ALDOLASE #### [facility] , Calcium [Mass/Vol] 7.3 mg/dL Low 8.2-10.2 [facility] Comment on above: Performed By: #### C K, ESR, BMP, CRP #### [facility] [address] [place] [address] [place] #### MYOG, ALDOLASE #### [facility] , Chloride [Moles/Vol] 92 mmol/L Low 95-114 [facility] Comment on above: Performed By: #### C K, ESR, BMP, CRP #### [facility] [address] [place] [address] #### MYOG, ALDOLASE #### [facility] , CO2 [Moles/Vol] 32.3 mmol/L High 22.0-30.0 [facility] Comment on above: Performed By: #### C K, ESR, BMP, CRP #### [facility] [address] [place] [address] [place] #### MYOG, ALDOLASE #### [facility] , Creatinine [Mass/Vol] 0.81 mg/dL Normal 0.44-1.03 [facility] Comment on above: Performed By: #### C K, ESR, BMP, CRP #### [address] #### MYOG, ALDOLASE #### [facility] , Creatinine Clr Calc Pharmacy 68.76 [facility] Comment on above: Performed By: #### C K, ESR, BMP, CRP #### [place] [address] [place] #### MYOG, ALDOLASE #### [facility] , Estimated GFR ( Radha > 60 [facility] Comment on above: Result Comment: GFR estimated reference range: According to KDOQI guidelines, <60 ml/min/1.73m2 is sufficient to diagnose a patient with chronic kidney disease. Performed By: #### C K, ESR, BMP, CRP #### [address] [place] [address] [place] #### MYOG, ALDOLASE #### [facility] , Estimated GFR (Non- Am > 60 Normal [facility] Comment on above: Performed By: #### C K, ESR, BMP, CRP #### [place] [address] [place] #### MYOG, ALDOLASE #### [facility] , Globulin (S) [Mass/Vol] 3.3 g/dL Normal [facility] Comment on above: Performed By: #### C K, ESR, BMP, CRP #### [place] [address] [place] #### MYOG, ALDOLASE #### [facility] , Glucose [Mass/Vol] 114 mg/dL High 70-100 [facility] Comment on above: Result Comment: [place] Glucose Reference Range is dependent on time and content of last meal. Glucose of more than 200 mg/dL in a nonstressed, ambulatory subject supports the diagnosis of Diabetes Mellitus. ADA recommended reference range Performed By: #### C K, ESR, BMP, CRP #### [place] [address] [place] #### MYOG, ALDOLASE #### [facility] , Potassium [Moles/Vol] 3.6 mmol/L Normal 3.5-5.1 [facility] Comment on above: Performed By: #### C K, ESR, BMP, CRP #### [place] [address] [place] #### MYOG, ALDOLASE #### [facility] , Protein [Mass/Vol] 5.8 g/dL Low 6.1-7.9 [facility] Comment on above: Performed By: #### C K, ESR, BMP, CRP #### [place] [address] [place] #### MYOG, ALDOLASE #### [facility] , Sodium [Moles/Vol] 133 mmol/L Low 136-146 [facility] Comment on above: Performed By: #### C K, ESR, BMP, CRP #### [facility] [address] [place] [address] [place] #### MYOG, ALDOLASE #### [facility] , Urea nitrogen [Mass/Vol] 30 mg/dL High 9-23 [facility] Comment on above: Performed By: #### C K, ESR, BMP, CRP #### [facility] [address] [place] [address] [place] #### MYOG, ALDOLASE #### [facility] , FL guided lumbar puncture LP on 09-27-2021 FL guided lumbar puncture LP [facility] [place] [address] [place] [address] Fluoroscopy Report Signed Patient: Alyce David MR#: [id number] : 1955 Acct:[id number] Age/Sex: 66 / F ADM Date: 09/25/21 Loc: Room: [address] [place] [address] Type: ADM IN Attending Dr: Matthew Laird DO Ordering Provider: LUIS Faye Date of Service: 09/27/21 FL/FL guided lumbar puncture LP: BLE weakness, ? GBS/CIDP Copies to: LUIS Faye DO Fluoroscopic-guided lumbar puncture 09/27/2021. CLINICAL DATA: Bilateral lower extremity weakness. TECHNIQUE: The procedure was discussed with the patient and informed consent was obtained. With the patient in the prone left posterior oblique position and following surface preparation and local anesthesia, a 20-gauge spinal needle was inserted percutaneously into the thecal sac using an interlaminar approach at the level of L3 on the left with fluoroscopic guidance. A combined total of 14 cc of clear, colorless cerebrospinal fluid were passively collected and distributed in roughly equal amounts into 4 separate vials using sterile technique. The needle was removed. The patient tolerated the procedure well. No immediate complication was evident. Fluoroscopy time was 36 seconds. The specimen was submitted to the laboratory for analysis. FL/FL guided lumbar puncture LP IMPRESSION: Fluoroscopic-guided lumbar puncture. Impression dictated by: Tyree Serrano Jr., M.D.09/27/2021 2:19 PM Dictation Location: [place] [address] Transcribed By: [facility] 09/27/211418 Dictated By: Tyree Serrano Jr, MD 09/27/211416 Signed By: 09/27/211418 Normal [facility] Glucose, CSF #2on 09-27-2021 Glucose, CSF #2 61 mg/dL Normal 40-70 [facility] Comment on above: Order Comment: Comme nt Tube 3 Performed By: #### C K, ESR, BMP, CRP #### [facility] [address] [place] [address] #### MYOG, ALDOLASE #### [facility] , Glucose, Spinal Fluidon 09-18 Glucose, Spinal Fluid 60 mg/dL Normal 40-70 [facility] Comment on above: Order Comment: Comme nt Tube 1 Performed By: #### C K, ESR, BMP, CRP #### [facility] [address] [place] [address] #### MYOG, ALDOLASE #### [facility] , Huber 09-27-2021 L - -------- Specimen: [id number] Received: 10/01/21-1044 Status: KIRSTIN Surekha Num: [id number] Spec Type: Cytology Subm Dr: Tyree Serrano Jr, MD Tissues: A CSF (CSF) Procedures: Pap Stain, ZHEN-DIFF, CYTOPREPCSF -------- Patient Age/Sex Location Account Attending Physician -------- Alyce David 66/F 4N [id number] Matthew Laird DO -------- SPEC NUM: [id number] RECD: 10/01/21 STATUS: KIRSTIN GUTIÉRREZ NUM: [id number] ISABELA: 09/27/218 [facility] DR: Tyree Serrano Jr, MD ENTERED: 10/01/[address] [facility] [address]: PAT TYPE: Cytology DEPT: [facility] ENTERED BY: [id number] RECV BY: [id number] ORDERED: Pap Stain, ZHEN-DIFF, CYTOPREPCSF ORDERED: Pap Stain, ZHEN-DIFF, CYTOPREPCSF Pathological Diagnosis Cerebrospinal fluid, cytospin cytology: - Paucicellular specimen with no malignant cells identified. Clinical Information BLE weakness; lumbar puncture Gross Description Received is 3 ml of colorless clear unfixed fluid said to have been obtained as CSF. ThinPrep is prepared for microscopic examination. (ANTHONY/mook) Microscopic Description One Papanicolaou stained cytospin slide and one Giemsa Balderrama stained cytospin slide have been examined. Microscopic findings support the above diagnosis. CPT Codes 41481 -------- -------- Specimen: [id number] Received: 10/01/21 Status: KIRSTIN Gutiérrez Num: [id number] Spec Type: Cytology Subm Dr: Tyree Serrano Jr, MD Tissues: A CSF (CSF) Procedures: Pap Stain, ZHEN-DIFF, CYTOPREPCSF -------- Patient: Alyce David [id number] (Continued) -------- Signed (signature on file) Matthew Negro MD 10/01/21 1542 [facility] MR lumbar spine wo conon MR lumbar spine wo con [facility] [place] [address] [place] [address] MRI Report Signed Patient: Alyce David MR#: [id number] : 1955 Acct:[id number] Age/Sex: 66 / F ADM Date: 09/25/21 Loc: Room: 8B3998-7 Type: ADM IN Attending Dr: Matthew Laird DO Ordering Provider: LUIS Faye Date of Service: 09/27/21 MR/MR lumbar spine wo con: BLE weakness Copies to: LUIS Faye DO MRI lumbar spine 09/27/2021. CLINICAL DATA: Bilateral lower extremity weakness. TECHNIQUE: MRI of the lumbar spine was performed. COMPARISON: None. FINDINGS: There is mild lumbar spinal curvature with the apex to the left. There is also mild posterior malalignment of L1 on L2. Vertebral alignment is otherwise normal. The images are degraded by patient motion. Disc space narrowing, discovertebral degenerative changes, and posterior disc bulging are identified. Hypertrophic ligamentous and facet joint changes are also seen. These findings result in mild central spinal canal stenosis at T12-L1 through L2-L3. There is mild to moderate canal stenosis at L3-L4 and L4-L5. There is neural foraminal narrowing at L1-L2 and L3-L4 on the right and at L4-L5 bilaterally. There are degenerative-type bony signal changes. The paraspinal soft tissues appear unremarkable. MR/MR lumbar spine wo con IMPRESSION: 1. Mild curvature and vertebral malalignment. 2. Disc space narrowing, discovertebral degenerative changes, and posterior disc bulging along with hypertrophic ligamentous and facet joint changes resulting in multilevel lumbar spinal canal stenosis and neural foraminal narrowing as described. Impression dictated by: Tyree Serrano Jr., M.D.09/27/2021 10:18 AM Dictation Location: [place] [address] Transcribed By: [facility] 09/27/21 1018 Dictated By: Tyree Serrano Jr, MD 09/27/21 1010 Signed By: 09/27/21 1018 Normal [facility] Magnesiumon 09-27-2021 Magnesium [Mass/Vol] 1.5 mg/dL Low 1.6-2.6 [facility] Comment on above: Result Comment: PERF ORMED BY: [place] [address] PATHOLOGIST ACCOUNTING PRACTICE MANAGER IDANIA WHITESIDE M.D. Performed By: #### C K, ESR, BMP, CRP #### [address] #### MYOG, ALDOLASE #### [facility] , Phosphoruson 09-27-2021 Phosphate [Mass/Vol] 3.1 mg/dL Normal 2.5-4.6 [facility] Comment on above: Performed By: #### C K, ESR, BMP, CRP #### [address] #### MYOG, ALDOLASE #### [facility] , Total Protein, CSF #2on - Total Protein, CSF #2 55 mg/dL High 15-45 [facility] Comment on above: Order Comment: Comme nt Tube 3 Result Comment: PERF ORMED BY: [place] [address] PATHOLOGIST ACCOUNTING PRACTICE MANAGER IDANIA WHITESIDE M.D. Performed By: #### C K, ESR, BMP, CRP #### [place] [address] [place] #### MYOG, ALDOLASE #### [facility] , Total Protein, Spinal Fluido n 09-27-2021 Total Protein, Spinal Fluid 55 mg/dL High 15-45 [facility] Comment on above: Order Comment: Comme nt Tube 1 Result Comment: PERF ORMED BY: [place] [address] PATHOLOGIST ACCOUNTING PRACTICE MANAGER JIANLAN SUN M.D. Performed By: #### C K, ESR, BMP, CRP #### [facility] [address] [place] [address] [place] #### MYOG, ALDOLASE #### [facility] , XR chest 2V*on 09-27-2021 XR chest 2V* [facility] [place] [address] [place] [address] XRay Report Signed Patient: Alyce David MR#: [id number] : 1955 Acct:[id number] Age/Sex: 66 / F ADM Date: 09/25/21 Loc: Room: [address] [place] [address] Type: ADM IN Attending Dr: Matthew Laird DO Ordering Provider: Matthew Laird DO Date of Service: 09/27/21 XR/XR chest 2V*: hypoxia Copies to: Matthew Laird DO PA AND LATERAL CHEST: CLINICAL HISTORY: Hypoxia. COMPARISON: 09/25/2021 FINDINGS: Heart appears normal in size. Interstitial changes are unchanged. No new focal consolidation, pneumothorax, pleural effusion or free air. Questionable likely pleural-based lesion seen posterior ly on the lateral view. Osseous structures demonstrate degenerative change. XR/XR chest 2V* IMPRESSION: QUESTIONABLE LIKELY PLEURAL-BASED LESION SEEN POSTERIORLY ON THE LATERAL VIEW ONLY. THIS CAN BE FURTHER EVALUATED BY CT CHEST WITH IV CONTRAST. Impression dictated by: Lang Garcia Jr., D.OTanmay09/27/2021 4:00 PM Dictation Location: [place] [address] Transcribed By: [facility] 09/27/21 1600 Dictated By: Lang Garcia Jr, DO 09/27/21 1558 Signed By: 09/27/21 1600 Normal [facility] Aldolaseon 09-26-2021 Aldolase 5.1 U/L Normal 3.3-10.3 [facility] Comment on above: Result Comment: Perf ormed at: CB - [facility] [address] [id number] Food Service Steward: Rhys Rivera PhD, Phone: [phone] PERFORMED BY: [place] [address] PATHOLOGIST ACCOUNTING PRACTICE MANAGER IDANIA WHITESIDE M.D. Performed By: #### C K, ESR, BMP, CRP #### [address] #### MYOG, ALDOLASE #### [facility] , Basic Metabolic Panelon 03-0 Calcium [Mass/Vol] 7.5 mg/dL Low 8.2-10.2 [facility] Comment on above: Performed By: #### C K, ESR, BMP, CRP #### [address] #### MYOG, ALDOLASE #### [facility] , Chloride [Moles/Vol] 90 mmol/L Low 95-114 [facility] Comment on above: Performed By: #### C K, ESR, BMP, CRP #### [address] #### MYOG, ALDOLASE #### [facility] , CO2 [Moles/Vol] 33.0 mmol/L High 22.0-30.0 [facility] Comment on above: Performed By: #### C K, ESR, BMP, CRP #### [address] #### MYOG, ALDOLASE #### [facility] , Creatinine [Mass/Vol] 0.99 mg/dL Normal 0.44-1.03 [facility] Comment on above: Performed By: #### C K, ESR, BMP, CRP #### [facility] [address] [place] [address] [place] #### MYOG, ALDOLASE #### [facility] , Creatinine Clr Calc Pharmacy 56.25 [facility] Comment on above: Performed By: #### C K, ESR, BMP, CRP #### [address] [address] [place] #### MYOG, ALDOLASE #### [facility] , Estimated GFR ( Radha > 60 [facility] Comment on above: Result Comment: GFR estimated reference range: According to KDOQI guidelines, <60 ml/min/1.73m2 is sufficient to diagnose a patient with chronic kidney disease. Performed By: #### C K, ESR, BMP, CRP #### [place] [address] [place] #### MYOG, ALDOLASE #### [facility] , Estimated GFR (Non- Am 56 [facility] Comment on above: Performed By: #### C K, ESR, BMP, CRP #### [place] [address] [place] #### MYOG, ALDOLASE #### [facility] , Glucose [Mass/Vol] 120 mg/dL High 70-100 [facility] Comment on above: Result Comment: [place] Glucose Reference Range is dependent on time and content of last meal. Glucose of more than 200 mg/dL in a nonstressed, ambulatory subject supports the diagnosis of Diabetes Mellitus. ADA recommended reference range Performed By: #### C K, ESR, BMP, CRP #### [place] [address] [place] #### MYOG, ALDOLASE #### [facility] , Potassium [Moles/Vol] 3.3 mmol/L Low 3.5-5.1 [facility] Comment on above: Performed By: #### C K, ESR, BMP, CRP #### [place] [address] [place] #### MYOG, ALDOLASE #### [facility] , Sodium [Moles/Vol] 135 mmol/L Low 136-146 [facility] Comment on above: Performed By: #### C K, ESR, BMP, CRP #### [place] [address] [place] #### MYOG, ALDOLASE #### [facility] , Urea nitrogen [Mass/Vol] 40 mg/dL High 9-23 [facility] Comment on above: Performed By: #### C K, ESR, BMP, CRP #### [facility] [address] [place] [address] [place] #### MYOG, ALDOLASE #### [facility] , Calcium [Mass/Vol] 7.5 mg/dL Low 8.2-10.2 [facility] Comment on above: Performed By: #### C K, ESR, BMP, CRP #### [facility] [address] [place] [address] #### MYOG, ALDOLASE #### [facility] , Chloride [Moles/Vol] 86 mmol/L Low 95-114 [facility] Comment on above: Performed By: #### C K, ESR, BMP, CRP #### [facility] [address] [place] [address] #### MYOG, ALDOLASE #### [facility] , CO2 [Moles/Vol] 33.1 mmol/L High 22.0-30.0 [facility] Comment on above: Performed By: #### C K, ESR, BMP, CRP #### [facility] [address] [place] [address] [place] #### MYOG, ALDOLASE #### [facility] , Creatinine [Mass/Vol] 1.31 mg/dL High 0.44-1.03 [facility] Comment on above: Performed By: #### C K, ESR, BMP, CRP #### [facility] [address] [place] [address] [place] #### MYOG, ALDOLASE #### [facility] , Creatinine Clr Calc Pharmacy 42.85 [facility] Comment on above: Result Comment: PERF ORMED BY: [place] [address] PATHOLOGIST ACCOUNTING PRACTICE MANAGER IDANIA WHITESIDE M.D. Performed By: #### C K, ESR, BMP, CRP #### [place] [address] [place] #### MYOG, ALDOLASE #### [facility] , Estimated GFR ( Radha 49 [facility] Comment on above: Result Comment: GFR estimated reference range: According to KDOQI guidelines, <60 ml/min/1.73m2 is sufficient to diagnose a patient with chronic kidney disease. Performed By: #### C K, ESR, BMP, CRP #### [place] [address] [place] #### MYOG, ALDOLASE #### [facility] , Estimated GFR (Non- Am 40 Normal [facility] Comment on above: Performed By: #### C K, ESR, BMP, CRP #### [place] [address] [place] #### MYOG, ALDOLASE #### [facility] , Glucose [Mass/Vol] 141 mg/dL High 70-100 [facility] Comment on above: Result Comment: [place] Glucose Reference Range is dependent on time and content of last meal. Glucose of more than 200 mg/dL in a nonstressed, ambulatory subject supports the diagnosis of Diabetes Mellitus. ADA recommended reference range Performed By: #### C K, ESR, BMP, CRP #### [place] [address] [place] #### MYOG, ALDOLASE #### [facility] , Potassium [Moles/Vol] 2.8 mmol/L Off scale low 3.5-5.1 [facility] Comment on above: Result Comment: Resu lts called at 2341 on 09/25/21 Performed By: #### C K, ESR, BMP, CRP #### [place] [address] [place] #### MYOG, ALDOLASE #### [facility] , Sodium [Moles/Vol] 133 mmol/L Low 136-146 [facility] Comment on above: Performed By: #### C K, ESR, BMP, CRP #### [address] #### MYOG, ALDOLASE #### [facility] , Urea nitrogen [Mass/Vol] 51 mg/dL High 9-23 [facility] Comment on above: Performed By: #### C K, ESR, BMP, CRP #### [address] #### MYOG, ALDOLASE #### [facility] , C-Reactive Proteinon 022 C-Reactive Protein 4.1 mg/dL High 0.0-1.0 [facility] Comment on above: Result Comment: PERF ORMED BY: [place] [address] PATHOLOGIST ACCOUNTING PRACTICE MANAGER IDANIA WHITESIDE M.D. Performed By: #### C K, ESR, BMP, CRP #### [address] #### MYOG, ALDOLASE #### [facility] , Complete Blood Count Auto Di ffon 09-26-2021 Basophils (Bld) [#/Vol] 0.0 10*3/uL Normal 0.0-0.2 [facility] Comment on above: Result Comment: PERF ORMED BY: [place] [address] PATHOLOGIST ACCOUNTING PRACTICE MANAGER IDANIA WHITESIDE M.D. Performed By: #### C K, ESR, BMP, CRP #### [address] #### MYOG, ALDOLASE #### [facility] , Basophils/100 WBC (Bld) 0.3 % Normal . [facility] Comment on above: Performed By: #### C K, ESR, BMP, CRP #### [address] #### MYOG, ALDOLASE #### [facility] , Eosinophils (Bld) [#/Vol] 0.1 10*3/uL Normal 0.0-0.45 [facility] Comment on above: Performed By: #### C K, ESR, BMP, CRP #### [address] #### MYOG, ALDOLASE #### [facility] , Eosinophils/100 WBC (Bld) 1.8 % Normal . [facility] Comment on above: Performed By: #### C K, ESR, BMP, CRP #### [address] #### MYOG, ALDOLASE #### [facility] , Erythrocyte distribution width (RBC) [Ratio] 15.1 % Normal 11.9-15.3 [facility] Comment on above: Performed By: #### C K, ESR, BMP, CRP #### [place] [address] [place] #### MYOG, ALDOLASE #### [facility] , Hematocrit (Bld) [Volume fraction] 28.3 % Low 34.0-46.4 [facility] Comment on above: Performed By: #### C K, ESR, BMP, CRP #### [address] #### MYOG, ALDOLASE #### [facility] , Hemoglobin (Bld) [Mass/Vol] 9.3 g/dL Low 11.8-15.4 [facility] Comment on above: Performed By: #### C K, ESR, BMP, CRP #### [address] #### MYOG, ALDOLASE #### [facility] , Lymphocytes (Bld) [#/Vol] 0.7 10*3/uL Low 1.00-4.8 [facility] Comment on above: Performed By: #### C K, ESR, BMP, CRP #### [address] #### MYOG, ALDOLASE #### [facility] , Lymphocytes/100 WBC (Bld) 10.6 % Normal . [facility] Comment on above: Performed By: #### C K, ESR, BMP, CRP #### [address] #### MYOG, ALDOLASE #### [facility] , MCH (RBC) [Entitic mass] 30.8 pg Normal 24.7-34.3 [facility] Comment on above: Performed By: #### C K, ESR, BMP, CRP #### [address] #### MYOG, ALDOLASE #### [facility] , MCV (RBC) [Entitic vol] 93.9 fL Normal 80-100 [facility] Comment on above: Performed By: #### C K, ESR, BMP, CRP #### [address] #### MYOG, ALDOLASE #### [facility] , Mean Corpuscular HGB Conc 32.8 g/dL Normal 32.0-35.0 [facility] Comment on above: Performed By: #### C K, ESR, BMP, CRP #### [place] [address] [place] #### MYOG, ALDOLASE #### [facility] , Monocytes (Bld) [#/Vol] 0.7 10*3/uL Normal 0.0-0.8 [facility] Comment on above: Performed By: #### C K, ESR, BMP, CRP #### [address] [place] [address] [place] #### MYOG, ALDOLASE #### [facility] , Monocytes/100 WBC (Bld) 9.8 % Normal . [facility] Comment on above: Performed By: #### C K, ESR, BMP, CRP #### [address] #### MYOG, ALDOLASE #### [facility] , Neutrophils (Bld) [#/Vol] 5.5 10*3/uL Normal 1.8-7.7 [facility] Comment on above: Performed By: #### C K, ESR, BMP, CRP #### [address] #### MYOG, ALDOLASE #### [facility] , Neutrophils/100 WBC (Bld) 77.5 % Normal . [facility] Comment on above: Performed By: #### C K, ESR, BMP, CRP #### [address] #### MYOG, ALDOLASE #### [facility] , Nucleated RBC/100 WBC (Bld) [Ratio] 0.1 % Normal 0-0.5 [facility] Comment on above: Performed By: #### C K, ESR, BMP, CRP #### [place] [address] [place] #### MYOG, ALDOLASE #### [facility] , Platelet mean volume (Bld) [Entitic vol] 7.7 fL Normal 6.3-10.7 [facility] Comment on above: Performed By: #### C K, ESR, BMP, CRP #### [place] [address] [place] #### MYOG, ALDOLASE #### [facility] , Platelets (Bld) [#/Vol] 274 10*3/uL Normal 150-450 [facility] Comment on above: Performed By: #### C K, ESR, BMP, CRP #### [facility] [address] [place] [address] [place] #### MYOG, ALDOLASE #### [facility] , RBC (Bld) [#/Vol] 3.02 10*6/uL Low 3.60-5.00 [facility] Comment on above: Performed By: #### C K, ESR, BMP, CRP #### [facility] [address] [place] [address] #### MYOG, ALDOLASE #### [facility] , WBC (Bld) [#/Vol] 7.0 10*3/uL Normal 4.5-11.0 [facility] Comment on above: Performed By: #### C K, ESR, BMP, CRP #### [facility] [address] [place] [address] #### MYOG, ALDOLASE #### [facility] , Comprehensive Metabolic Pane huber 09-26-2021 Albumin [Mass/Vol] 2.5 g/dL Low 3.2-5.5 [facility] Comment on above: Performed By: #### C K, ESR, BMP, CRP #### [address] #### MYOG, ALDOLASE #### [facility] , Albumin/Globulin [Mass ratio] 0.8 {ratio} Normal [facility] Comment on above: Performed By: #### C K, ESR, BMP, CRP #### [facility] [address] [place] [address] [place] #### MYOG, ALDOLASE #### [facility] , ALP [Catalytic activity/Vol] 89 U/L Normal 32-92 [facility] Comment on above: Performed By: #### C K, ESR, BMP, CRP #### [facility] [address] [place] [address] [place] #### MYOG, ALDOLASE #### [facility] , ALT [Catalytic activity/Vol] 25 U/L Normal 10-60 [facility] Comment on above: Performed By: #### C K, ESR, BMP, CRP #### [facility] [address] [place] [address] #### MYOG, ALDOLASE #### [facility] , AST [Catalytic activity/Vol] 46 U/L High 10-42 [facility] Comment on above: Performed By: #### C K, ESR, BMP, CRP #### [facility] [address] [place] [address] [place] #### MYOG, ALDOLASE #### [facility] , Bilirubin [Mass/Vol] 0.8 mg/dL Normal 0.3-1.2 [facility] Comment on above: Performed By: #### C K, ESR, BMP, CRP #### [facility] [address] [place] [address] [place] #### MYOG, ALDOLASE #### [facility] , Calcium [Mass/Vol] 7.5 mg/dL Low 8.2-10.2 [facility] Comment on above: Performed By: #### C K, ESR, BMP, CRP #### [facility] [address] [place] [address] [place] #### MYOG, ALDOLASE #### [facility] , Chloride [Moles/Vol] 89 mmol/L Low 95-114 [facility] Comment on above: Performed By: #### C K, ESR, BMP, CRP #### [facility] [address] [place] [address] [place] #### MYOG, ALDOLASE #### [facility] , CO2 [Moles/Vol] 32.0 mmol/L High 22.0-30.0 [facility] Comment on above: Performed By: #### C K, ESR, BMP, CRP #### [facility] [address] [place] [address] #### MYOG, ALDOLASE #### [facility] , Creatinine [Mass/Vol] 1.16 mg/dL High 0.44-1.03 [facility] Comment on above: Performed By: #### C K, ESR, BMP, CRP #### [facility] [address] [place] [address] [place] #### MYOG, ALDOLASE #### [facility] , Creatinine Clr Calc Pharmacy 48.01 [facility] Comment on above: Performed By: #### C K, ESR, BMP, CRP #### [facility] [address] [place] [address] #### MYOG, ALDOLASE #### [facility] , Estimated GFR ( Radha 56 [facility] Comment on above: Result Comment: GFR estimated reference range: According to KDOQI guidelines, <60 ml/min/1.73m2 is sufficient to diagnose a patient with chronic kidney disease. Performed By: #### C K, ESR, BMP, CRP #### [facility] [address] [place] [address] #### MYOG, ALDOLASE #### [facility] , Estimated GFR (Non- Am 46 [facility] Comment on above: Performed By: #### C K, ESR, BMP, CRP #### [facility] [address] [place] [address] [place] #### MYOG, ALDOLASE #### [facility] , Globulin (S) [Mass/Vol] 3.2 g/dL [facility] Comment on above: Performed By: #### C K, ESR, BMP, CRP #### [facility] [address] [place] [address] #### MYOG, ALDOLASE #### [facility] , Glucose [Mass/Vol] 145 mg/dL High 70-100 [facility] Comment on above: Result Comment: [place] om Glucose Reference Range is dependent on time and content of last meal. Glucose of more than 200 mg/dL in a nonstressed, ambulatory subject supports the diagnosis of Diabetes Mellitus. ADA recommended reference range Performed By: #### C K, ESR, BMP, CRP #### [facility] [address] [place] [address] #### MYOG, ALDOLASE #### [facility] , Potassium [Moles/Vol] 3.0 mmol/L Low 3.5-5.1 [facility] Comment on above: Performed By: #### C K, ESR, BMP, CRP #### [address] #### MYOG, ALDOLASE #### [facility] , Protein [Mass/Vol] 5.7 g/dL Low 6.1-7.9 [facility] Comment on above: Performed By: #### C K, ESR, BMP, CRP #### [facility] [address] [place] [address] #### MYOG, ALDOLASE #### [facility] , Sodium [Moles/Vol] 135 mmol/L Low 136-146 [facility] Comment on above: Performed By: #### C K, ESR, BMP, CRP #### [facility] [address] [place] [address] [place] #### MYOG, ALDOLASE #### [facility] , Urea nitrogen [Mass/Vol] 48 mg/dL High 9-23 [facility] Comment on above: Performed By: #### C K, ESR, BMP, CRP #### [facility] [address] [place] [address] [place] #### MYOG, ALDOLASE #### [facility] , Creatine Kinaseon 09-26-2021 CK [Catalytic activity/Vol] 161 U/L Normal 22-269 [facility] Comment on above: Result Comment: PERF ORMED BY: [place] [address] PATHOLOGIST ACCOUNTING PRACTICE MANAGER IDANIA WHITESIDE M.D. Performed By: #### C K, ESR, BMP, CRP #### [place] [address] [place] #### MYOG, ALDOLASE #### [facility] , ECG 12 lead ECGon 09-26-2021 ECG 12 lead ECG [facility] [place] [address] Electrocardiograph Report Signed Patient: Alyce David MR#: [id number] : 1955 Acct:[id number] Age/Sex: 66 / F ADM Date: 09/25/21 Loc: 4N Room: [address] [place] [address] Type: DIS IN Attending Dr: Matthew Laird DO Ordering Provider: Maddie Guadalupe DO, RES Date of Service: 09/26/2104/11/500 ECG/ECG 12 lead ECG: hypokalemia Copies to: Test Reason : Blood Pressure : / mmHG Vent. Rate : 062 BPM Atrial Rate : 062 BPM P-R Int : 180 ms QRS Dur : 082 ms QT Int : 462 ms P-R-T Axes : 056 026 032 degrees QTc Int : 468 ms Normal sinus rhythm Normal ECG When compared with ECG of 25-SEP-2021 17:48, Nonspecific T wave abnormality no longer evident in Anterior leads Confirmed by ÓSCAR ALEJANDRO DO ([id number]) on 09/26/2021 12:53:22 PM Referred By: Electronically Signed By:ÓSCAR ALEJANDRO DO Transcribed By: MUS Signed By Óscar Alejandro DO 09/26 1253 Normal [facility] ECH echo transthoracicon ECH echo transthoracic [place] [id number] Echocardiogram Signed Patient: Alyce David MR#: [id number] : 1955 Acct:[id number] Age/Sex: 66 / F ADM Date: 09/25/21 Loc: 4N Room: [address] [place] [address] Type: DIS IN Attending Dr: Matthew Laird DO Ordering Provider: Kirstie Scott MD Date of Service: 09/25/2103/11/2245 [facility] echo transthoracic: abn Copies to: Maranda Farrell MD, FACC Kirstie Scott MD Weight: 188 lb Performed By: MELBA Colin BSA: 1.9 m2 BP: 118/64 mmHg HR: 65 Reason For Study: abn. CHF. History: Anemia. Former Smoker. HTN. Interpretation Summary Ejection Fraction = 55-60%. The left ventricular size, thickness and function are normal The left ventricular wall motion is normal. The left atrial volume is borderline increased. There is no prior echocardiogram noted for this patient. Procedure/Quality: A two-dimensional transthoracic echocardiogram with color flow and Doppler was performed. There is no prior echocardiogram noted for this patient. Left Ventricle: The left ventricular size, thickness and function are normal. Ejection Fraction = 55-60%. The left ventricular wall motion is normal. Left Atrium: The left atrial volume is borderline increased. The atrial septum appears normal. Right Atrium: The right atrium appears normal in size. Right Ventricle: The right ventricular size, thickness and function are normal. Aortic Valve: The aortic valve is normal in structure and function. No aortic regurgitation is present. Mitral Valve: The mitral valve is normal in structure and function. There is no mitral regurgitation noted. Tricuspid Valve: The tricuspid valve is normal in structure and function. No tricuspid regurgitation. Pulmonic Valve: The pulmonic valve is normal in structure and function. Arteries: The aortic root is normal size. Pericardium/Pleura: No pericardial effusion seen. There is no pleural effusion. IVC/Hepatic Viens: The inferior vena cava is normal in size, with a normal collapsibility index. Miscellaneous: No thrombus, vegetation or mass is seen. Measurements with Normals IVSd: 1.0 cm (0.7-1.1 cm)LVIDd: 5.3 cm (3.7-5.4 cm) LVPWd: 1.1 cm (0.7-1.1 cm)LVIDs: 3.2 cm (2.3-3.6 cm) LA dimension: 4.8 cm (2.3-4.0 cm)Ao root diam: 3.4 cm(2.0-3.6 cm) asc Aorta Diam: 3.5 cm(2.1-3.4cm) Doppler with Normals RVSP(TR): 37.3 mmHg (18-35mmHg) MV E max roddy: 139.0 cm/sec(0.8-1.3m/s) MV A max roddy: 66.7 cm/sec (0.0-0.0m/s) MV E/A: 2.1 (<1.5) MMode/2D Measurements Calculations RVDd: 3.5 cm FS: 39.0 % Ao root area: 8.9 cm2 LVLd ap4: 7.3 cm TAPSE: 2.9 cm EDV(Teich): EDV(MOD-sp4): RV S Roddy: 134.0 ml 62.3 ml 17.7 cm/sec ESV(Teich): LVLs ap4: 6.7 cm 41.5 ml ESV(MOD-sp4): EF(Teich): 69.0 % 21.6 ml EF(MOD-sp4): 65.3 % __ SV(MOD-sp4): LAV(MOD-sp4): LA A2 area: 18.8 cm2 40.7 ml 42.7 ml LAV(MOD-sp2): LA A4 area: 17.2 cm2 50.8 ml LA length (vol): 5.7 cm LA vol: 48.2 ml LA vol index: 25.6 ml/m2 Doppler Measurements Calculations MV dec time: 0.32 sec E/E' lat: MV dec slope: TV max P.1 29.0 mmHg E/E' med: 438.5 cm/sec2 16.0 __ TR max roddy: 270.5 cm/sec TR max P.3 mmHg RAP systole: 8.0 mmHg Transcribed By: SARAH Performed At: 09/26/21 1506 Signed By: Maranda Farrell MD, FACC 09/26/21 1711 Normal [facility] Erythrocyte Sedimentation Ra getachew 09-26-2021 ESR (Bld) [Velocity] 45 mm/h High 0-29 [facility] Comment on above: Result Comment: PERF ORMED BY: [place] [address] PATHOLOGIST ACCOUNTING PRACTICE MANAGER IDANIA WHITESIDE M.D. Performed By: #### C K, ESR, BMP, CRP #### [address] #### MYOG, ALDOLASE #### [facility] , Ferritinon 09-26-2021 Ferritin [Mass/Vol] 669.7 ng/mL High 11-306.8 [facility] Comment on above: Order Comment: Comme nt add Comment add Performed By: #### C K, ESR, BMP, CRP #### [address] #### MYOG, ALDOLASE #### [facility] , Free T4 (Free Thyroxine)on 0 09-26-2021 Free T4 [Mass/Vol] 1.25 ng/dL High 0.61-1.12 [facility] Comment on above: Order Comment: Comme nt add Comment add Result Comment: PERF ORMED BY: [place] [address] PATHOLOGIST ACCOUNTING PRACTICE MANAGER IDANIA WHITESIDE M.D. Performed By: #### C K, ESR, BMP, CRP #### [facility] [address] [place] [address] [place] #### MYOG, ALDOLASE #### [facility] , Iron and TIBC Profileon % Iron Saturation 9.0 % Low 20-50 [facility] Comment on above: Order Comment: Comme nt add Comment add Performed By: #### C K, ESR, BMP, CRP #### [facility] [address] [place] [address] [place] #### MYOG, ALDOLASE #### [facility] , Iron [Mass/Vol] 28 ug/dL Low 40-150 [facility] Comment on above: Order Comment: Comme nt add Comment add Performed By: #### C K, ESR, BMP, CRP #### [facility] [address] [place] [address] [place] #### MYOG, ALDOLASE #### [facility] , Total Iron Binding Capacity 300 ug/dL Normal 255-450 [facility] Comment on above: Order Comment: Comme nt add Comment add Performed By: #### C K, ESR, BMP, CRP #### [address] #### MYOG, ALDOLASE #### [facility] , Transferrin [Mass/Vol] 214 mg/dL Normal 180-380 [facility] Comment on above: Order Comment: Comme nt add Comment add Performed By: #### C K, ESR, BMP, CRP #### [facility] [address] [place] [address] #### MYOG, ALDOLASE #### [facility] , Magnesiumon 09-26-2021 Magnesium [Mass/Vol] 2.7 mg/dL High 1.6-2.6 [facility] Comment on above: Result Comment: PERF ORMED BY: [place] [address] PATHOLOGIST ACCOUNTING PRACTICE MANAGER IDANIA WHITESIDE M.D. Performed By: #### C K, ESR, BMP, CRP #### [facility] [address] [place] [address] [place] #### MYOG, ALDOLASE #### [facility] , Myoglobinon 09-26-2021 Myoglobin [Mass/Vol] 108 ng/mL High 25-58 [facility] Comment on above: Result Comment: Perf ormed at: - [facility] [address] [id number] Food Service Steward: Rhys Rivera PhD, Phone: [phone] Performed By: #### C K, ESR, BMP, CRP #### [address] #### MYOG, ALDOLASE #### [facility] , Phosphoruson 09-26-2021 Phosphate [Mass/Vol] 3.5 mg/dL Normal 2.5-4.6 [facility] Comment on above: Result Comment: PERF ORMED BY: [place] [address] PATHOLOGIST ACCOUNTING PRACTICE MANAGER IDANIA WHITESIDE M.D. Performed By: #### C K, ESR, BMP, CRP #### [address] #### MYOG, ALDOLASE #### [facility] , Triiodothyronine (T3) Freeon 09-26-2021 Triiodothyronine (T3) Free 2.60 pg/mL Normal 2.50-3.90 [facility] Comment on above: Result Comment: PERF ORMED BY: [place] [address] PATHOLOGIST ACCOUNTING PRACTICE MANAGER IDANIA WHITESIDE M.D. Performed By: #### C K, ESR, BMP, CRP #### [address] #### MYOG, ALDOLASE #### [facility] , Vit. B12/Folate Profileon Cobalamin (Vitamin B12) [Mass/Vol] 795 pg/mL Normal 180-914 [facility] Comment on above: Order Comment: Comme nt add Comment add Performed By: #### C K, ESR, BMP, CRP #### [place] [address] [place] #### MYOG, ALDOLASE #### [facility] , Folate 7.3 ng/mL Normal >5.9 [facility] Comment on above: Order Comment: Comme nt add Comment add Result Comment: Shalini te reference range: >5.9 ng/ml The WHO technical consultation on folate and vitamin b12 deficiencies has determined that folate concentrations less than 4 ng/ml are considered deficient. Performed By: #### C K, ESR, BMP, CRP #### [facility] [address] #### MYOG, ALDOLASE #### [facility] , B-Type Natriuretic Peptideon 09-25-2021 Natriuretic peptide B (Bld) [Mass/Vol] 577.0 pg/mL High 5-100 [facility] Comment on above: Result Comment: PERF ORMED BY: [place] [address] PATHOLOGIST ACCOUNTING PRACTICE MANAGER IDANIA WHITESIDE M.D. Performed By: #### C OVID 19 [facility] #### [facility] [address] COVID-19 Antigenon 2 COVID-19 Antigen Healthcare Worker?: N Kate Reference Kate Reference Negative SARS-CoV+SARS-CoV-2 (COVID-19) Ag [Presence] in Respiratory specimen by Rapid immunoassay Negative for SARS Antigen by MY COVID19 Blank Space Kate Disclaimer Negative results, from patients with symptom Kate Disclaimer onset beyond five days, should be treated as Kate Disclaimer presumptive and confirmation with a molecular Kate Disclaimer assay, if necessary, for patient management, Kate Disclaimer may be performed. Negative results do not rule Kate Disclaimer out COVID-19 and should not be used as the sole Kate Disclaimer basis for treatment or patient management Kate Disclaimer decisions, including infection control decisions. Kate Disclaimer Negative results should be considered in the Kate Disclaimer context of a patient's recent exposures, history Kate Disclaimer and the presence of clinical signs and symptoms Kate Disclaimer consistent with COVID-19. COVID19 Blank Space Kate Disclaimer The Kate SARS Antigen MY does not differentiate Kate Disclaimer between SARS-CoV and SARS-CoV-2. COVID19 Blank Space Kate Disclaimer This test was developed and its performance Kate Disclaimer characteristic determined by [employer] and Kate Disclaimer validated at [facility]. This [employer] Disclaimer test has not been FDA cleared or approved. This Kate Disclaimer test has been authorized by FDA under an Emergency Use Kate Disclaimer Authorization (EUA). This test has been validated Kate Disclaimer in accordance with the FDA's Guidance Document (Policy Kate Disclaimer for Diagnostics Testing in Laboratories Certified to Kate Disclaimer Perform High Complexity Testing under CLIA prior to Kate Disclaimer Emergency Use Authorization for Coronavirus Kate Disclaimer during the Public Health Emergency) Kate Disclaimer issued on October 21, 2019. This test is only authorized Kate Disclaimer for the duration of time the declaration that Kate Disclaimer circumstances exist justifying the authorization of Kate Disclaimer the emergency use of in vitro diagnostic tests for Kate Disclaimer detection of SARS-CoV-2 virus and/or diagnosis of Kate Disclaimer COVID-19 infection under section 564(b)(1) of the Kate Disclaimer Act, 21 U.S.C. 360bbb-3(b)(1), unless the Kate Disclaimer authorization is terminated or revoked sooner. PERFORMED BY: [facility] [address] [place], [place] [address] PATHOLOGIST ACCOUNTING PRACTICE MANAGER IDANIA WHITESIDE M.D. Normal [facility] Comment on above: Performed By: #### T SH3 wRFLX, T4F, LIPID, [id number] #### [facility] [address] [place], [place] [address] [facility] COVID-19 [facility] [place] SARS-CoV-2 (COVID-19) RNA EN+probe Ql (Unsp spec) Negative Normal Negative [facility] Comment on above: Order Comment: Healt hcare Worker?: N Result Comment: Testing for SARS-CoV-2 by RT-PCR This test was developed and its performance characteristics determined by [employer] and validated at the [facility]. This test has not been FDA cleared or approved. This test has been authorized by FDA under an Emergency Use Authorization (EUA). This test has been validated in accordance with the FDA's Guidance Document (Policy for Diagnostics Testing in Laboratories Certified to Perform High Complexity Testing under CLIA prior to Emergency Use Authorization for Coronavirus Disease-2019 during the Public Health Emergency) issued on October 21, 2019. This test is only authorized for the duration of time the declaration that circumstances exist justifying the authorization of the emergency use of in vitro diagnostic tests for detection of SARS-CoV-2 virus and/or diagnosis of COVID-19 infection under section 564(b)(1) of the Act, 21 U.S.C. 360bbb-3(b)(1), unless the authorization is terminated or revoked sooner. PERFORMED BY: [place] [address] PATHOLOGIST ACCOUNTING PRACTICE MANAGER IDANIA WHITESIDE M.D. Performed By: #### C OVID 19 [facility] #### [facility] [address] [place], [place] [address] [facility] CT abdomen pelvis wo conon 0 09-25-2021 CT abdomen pelvis wo con [facility] [place] [address] [place] [address] CT Scan Report Signed Patient: Alyce David MR#: [id number] : 1955 Acct:[id number] Age/Sex: 66 / F ADM Date: 09/25/21 Loc: ER Room: Type: [facility] ER Attending Dr: Ordering Provider: Marino Hough DO Date of Service: 09/25/21 CT/CT abdomen pelvis wo con: abd pain, lower abd, weakness Copies to: Marino EricksonDO jane CT abdomen and pelvis 09/25/2021. CLINICAL DATA: Abdominal pain. TECHNIQUE: CT of the abdomen and pelvis was performed without contrast. Axial, sagittal, and coronal reconstructions were created and reviewed. This CT exam was performed using one or more of the following dose reduction techniques: Automated exposure control, adjustment of the mA and/or kV according to patient size, or use of iterative reconstruction technique. COMPARISON: None. FINDINGS: Images of the lower chest demonstrate dependent subpleural atelectasis in both lung bases. There is a small hiatal hernia. The liver is mildly enlarged and demonstrates mild diffuse decreased attenuation consistent with fatty metamorphosis. There is fatty sparing near the gallbladder. The spleen, pancreas, right kidney, and both adrenal glands appear unremarkable. The urinary bladder is abnormally dilated. There is mild to moderate left hydronephrosis. The left kidney appears otherwise unremarkable. No renal or ureteral calculus is identified. The gallbladder is dilated. No acute intestinal abnormality is identified. The appendix appears unremarkable. No free intra-abdominal air or ascites is seen. Atherosclerotic disease is noted along with degenerative changes in the lower thoracic and lumbar spine. No abdominal wall abnormality is visualized. CT/CT abdomen pelvis wo con IMPRESSION: 1. Bibasilar atelectasis and small hiatal hernia. 2. Mildly enlarged and fatty liver. 3. Abnormally dilated urinary bladder and mild to moderate left hydronephrosis. 3. Dilated gallbladder. Impression dictated by: Tyree Serrano Jr., M.D.09/25/2021 8:11 PM Dictation Location: [place] [address] Transcribed By: [facility] 09/25/212010 Dictated By: Tyree Serrano Jr, MD 09/25/211957 Signed By: 09/25/212010 Normal [facility] Complete Blood Count Auto Di ffon 09-25-2021 Basophils (Bld) [#/Vol] 0.0 10*3/uL Normal 0.0-0.2 [facility] Comment on above: Result Comment: PERF ORMED BY: [place] [address] PATHOLOGIST ACCOUNTING PRACTICE MANAGER IDANIA WHITESIDE M.D. Performed By: #### C K, ESR, BMP, CRP #### [address] #### MYOG, ALDOLASE #### [facility] , Basophils/100 WBC (Bld) 0.5 % Normal . [facility] Comment on above: Performed By: #### C K, ESR, BMP, CRP #### [address] #### MYOG, ALDOLASE #### [facility] , Eosinophils (Bld) [#/Vol] 0.2 10*3/uL Normal 0.0-0.45 [facility] Comment on above: Performed By: #### C K, ESR, BMP, CRP #### [address] #### MYOG, ALDOLASE #### [facility] , Eosinophils/100 WBC (Bld) 1.9 % Normal . [facility] Comment on above: Performed By: #### C K, ESR, BMP, CRP #### [address] #### MYOG, ALDOLASE #### [facility] , Erythrocyte distribution width (RBC) [Ratio] 15.4 % High 11.9-15.3 [facility] Comment on above: Performed By: #### C K, ESR, BMP, CRP #### [place] [address] [place] #### MYOG, ALDOLASE #### [facility] , Hematocrit (Bld) [Volume fraction] 30.3 % Low 34.0-46.4 [facility] Comment on above: Performed By: #### C K, ESR, BMP, CRP #### [place] [address] [place] #### MYOG, ALDOLASE #### [facility] , Hemoglobin (Bld) [Mass/Vol] 9.9 g/dL Low 11.8-15.4 [facility] Comment on above: Performed By: #### C K, ESR, BMP, CRP #### [place] [address] [place] #### MYOG, ALDOLASE #### [facility] , Lymphocytes (Bld) [#/Vol] 0.7 10*3/uL Low 1.00-4.8 [facility] Comment on above: Performed By: #### C K, ESR, BMP, CRP #### [address] #### MYOG, ALDOLASE #### [facility] , Lymphocytes/100 WBC (Bld) 8.7 % Normal . [facility] Comment on above: Performed By: #### C K, ESR, BMP, CRP #### [place] [address] [place] #### MYOG, ALDOLASE #### [facility] , MCH (RBC) [Entitic mass] 30.8 pg Normal 24.7-34.3 [facility] Comment on above: Performed By: #### C K, ESR, BMP, CRP #### [place] [address] [place] #### MYOG, ALDOLASE #### [facility] , MCV (RBC) [Entitic vol] 94.0 fL Normal 80-100 F [facility] Comment on above: Performed By: #### C K, ESR, BMP, CRP #### [place] [address] [place] #### MYOG, ALDOLASE #### [facility] , Mean Corpuscular HGB Conc 32.8 g/dL Normal 32.0-35.0 [facility] Comment on above: Performed By: #### C K, ESR, BMP, CRP #### [facility] [address] [place] [address] [place] #### MYOG, ALDOLASE #### [facility] , Monocytes (Bld) [#/Vol] 0.7 10*3/uL Normal 0.0-0.8 [facility] Comment on above: Performed By: #### C K, ESR, BMP, CRP #### [place] [address] [place] #### MYOG, ALDOLASE #### [facility] , Monocytes/100 WBC (Bld) 7.8 % Normal . [facility] Comment on above: Performed By: #### C K, ESR, BMP, CRP #### [place] [address] [place] #### MYOG, ALDOLASE #### [facility] , Neutrophils (Bld) [#/Vol] 6.9 10*3/uL Normal 1.8-7.7 [facility] Comment on above: Performed By: #### C K, ESR, BMP, CRP #### [address] #### MYOG, ALDOLASE #### [facility] , Neutrophils/100 WBC (Bld) 81.1 % Normal . [facility] Comment on above: Performed By: #### C K, ESR, BMP, CRP #### [place] [address] [place] #### MYOG, ALDOLASE #### [facility] , Nucleated RBC/100 WBC (Bld) [Ratio] 0.4 % Normal 0-0.5 [facility] Comment on above: Performed By: #### C K, ESR, BMP, CRP #### [place] [address] [place] #### MYOG, ALDOLASE #### [facility] , Platelet mean volume (Bld) [Entitic vol] 8.0 fL Normal 6.3-10.7 [facility] Comment on above: Performed By: #### C K, ESR, BMP, CRP #### [address] #### MYOG, ALDOLASE #### [facility] , Platelets (Bld) [#/Vol] 377 10*3/uL Normal 150-450 [facility] Comment on above: Performed By: #### C K, ESR, BMP, CRP #### [address] #### MYOG, ALDOLASE #### [facility] , RBC (Bld) [#/Vol] 3.22 10*6/uL Low 3.60-5.00 [facility] Comment on above: Performed By: #### C K, ESR, BMP, CRP #### [facility] [address] [place] [address] #### MYOG, ALDOLASE #### [facility] , WBC (Bld) [#/Vol] 8.5 10*3/uL Normal 4.5-11.0 [facility] Comment on above: Performed By: #### C K, ESR, BMP, CRP #### [facility] [address] [place] [address] [place] #### MYOG, ALDOLASE #### [facility] , Comprehensive Metabolic Pane huber 09-25-2021 Albumin [Mass/Vol] 2.8 g/dL Low 3.2-5.5 [facility] Comment on above: Performed By: #### C OVID 19 [facility] #### [address] Albumin/Globulin [Mass ratio] 0.7 {ratio} Normal [facility] Comment on above: Performed By: #### C OVID 19 [facility] #### [facility] [address] [place] [address] [facility] ALP [Catalytic activity/Vol] 102 U/L High 32-92 [facility] Comment on above: Performed By: #### C CATSKILL 19 [facility] #### [facility] [address] [place] [address] [facility] ALT [Catalytic activity/Vol] 31 U/L Normal 10-60 [facility] Comment on above: Performed By: #### C [address] #### [facility] [address] [place] [id number] [facility] AST [Catalytic activity/Vol] 60 U/L High 10-42 [facility] Comment on above: Performed By: #### C [address] #### [place] [id number] [facility] Bilirubin [Mass/Vol] 1.3 mg/dL High 0.3-1.2 [facility] Comment on above: Result Comment: Samp les from patients who have taken Naproxen have shown spurious elevation in Total Bilirubin levels. A metabolite of Naproxen, O-desmethylnaproxen, has been shown to interfere with the Jendrassik-Grof method for measuring Total Bilirubin. Performed By: #### C [address] #### [place] [id number] [facility] Calcium [Mass/Vol] 7.7 mg/dL Low 8.2-10.2 [facility] Comment on above: Performed By: #### C [address] #### [place] [id number] [place] Chloride [Moles/Vol] 82 mmol/L Low 95-114 [facility] Comment on above: Performed By: #### C CATSKILL 19 [facility] #### [place] [id number] [facility] CO2 [Moles/Vol] 33.7 mmol/L High 22.0-30.0 [facility] Comment on above: Performed By: #### C [address] #### [place] [id number] [place] Creatinine [Mass/Vol] 1.29 mg/dL High 0.44-1.03 [facility] Comment on above: Performed By: #### C CATSKILL 19 [facility] #### [facility] [address] Creatinine Clr Calc Pharmacy 43.51 [facility] Comment on above: Performed By: #### C CATSKILL 19 [facility] #### [facility] [address] Estimated GFR ( Radha 50 [facility] Comment on above: Result Comment: GFR estimated reference range: According to KDOQI guidelines, <60 ml/min/1.73m2 is sufficient to diagnose a patient with chronic kidney disease. Performed By: #### C CATSKILL 19 [facility] #### [address] Estimated GFR (Non- Am 41 [facility] Comment on above: Performed By: #### C CATSKILL 19 [facility] #### [address] Globulin (S) [Mass/Vol] 3.8 g/dL Normal [facility] Comment on above: Performed By: #### C CATSKILL 19 [facility] #### [address] Glucose [Mass/Vol] 122 mg/dL High 70-100 [facility] Comment on above: Result Comment: [place] Glucose Reference Range is dependent on time and content of last meal. Glucose of more than 200 mg/dL in a nonstressed, ambulatory subject supports the diagnosis of Diabetes Mellitus. ADA recommended reference range Performed By: #### C OVID 19 [facility] #### [facility] [address] Potassium Normal 3.5-5.1 [facility] Comment on above: Result Comment: DAIN SUMMERS NOTIFIED OF REDRAW. BMF 1839 Specimen hemolyzed, redraw requested Performed By: #### C CATSKILL 19 [facility] #### [address] Protein [Mass/Vol] 6.6 g/dL Normal 6.1-7.9 [facility] Comment on above: Performed By: #### C OVID 19 [facility] #### [address] Sodium [Moles/Vol] 132 mmol/L Low 136-146 [facility] Comment on above: Performed By: #### C OVID 19 [facility] #### [facility] [address] [place] [address] Urea nitrogen [Mass/Vol] 52 mg/dL High 9-23 [facility] Comment on above: Performed By: #### C CATSKILL 19 [facility] #### [address] Creatine Kinaseon 09-25-2021 CK [Catalytic activity/Vol] 197 U/L Normal 22-269 [facility] Comment on above: Performed By: #### C OVID 19 [facility] #### [address] Dipstick and Microscopicon 0 09-25-2021 Appearance (U) Cloudy Critically abnormal Clear [facility] Comment on above: Order Comment: Name Collection Type:: Straight Catheter Performed By: #### C K, ESR, BMP, CRP #### [address] #### MYOG, ALDOLASE #### [facility] , Bacteria,Urine 2+ High None Seen [facility] Comment on above: Order Comment: Name Collection Type:: Straight Catheter Result Comment: --- 09/25/211909 --- Ur Bact previously reported as: 2+ H Performed By: #### C K, ESR, BMP, CRP #### [facility] [address] [place] [address] #### MYOG, ALDOLASE #### [facility] , Bilirubin,Urine Negative Normal Negative [facility] Comment on above: Order Comment: Name Collection Type:: Straight Catheter Performed By: #### C K, ESR, BMP, CRP #### [address] #### MYOG, ALDOLASE #### [facility] , Color (U) Yellow Normal Yellow [facility] Comment on above: Order Comment: Name Collection Type:: Straight Catheter Performed By: #### C K, ESR, BMP, CRP #### [address] #### MYOG, ALDOLASE #### [facility] , Glucose Ql (U) Normal Normal Normal [facility] Comment on above: Order Comment: Name Collection Type:: Straight Catheter Performed By: #### C K, ESR, BMP, CRP #### [address] #### MYOG, ALDOLASE #### [facility] , Hyaline Casts,Urine None Seen Normal 0-1 [facility] Comment on above: Order Comment: Name Collection Type:: Straight Catheter Performed By: #### C K, ESR, BMP, CRP #### [address] #### MYOG, ALDOLASE #### [facility] , Ketones Ql (U) Negative Normal Negative [facility] Comment on above: Order Comment: Name Collection Type:: Straight Catheter Performed By: #### C K, ESR, BMP, CRP #### [address] #### MYOG, ALDOLASE #### [facility] , Leukocyte esterase Test strip Ql (U) 3+ High Negative [facility] Comment on above: Order Comment: Name Collection Type:: Straight Catheter Performed By: #### C K, ESR, BMP, CRP #### [address] #### MYOG, ALDOLASE #### [facility] , Nitrite,Urine Negative Normal Negative [facility] Comment on above: Order Comment: Name Collection Type:: Straight Catheter Performed By: #### C K, ESR, BMP, CRP #### [address] #### MYOG, ALDOLASE #### [facility] , Occult Blood,Urine Trace High Negative [facility] Comment on above: Order Comment: Name Collection Type:: Straight Catheter Result Comment: PERF ORMED BY: [place] [address] PATHOLOGIST ACCOUNTING PRACTICE MANAGER IDANIA WHITESIDE M.D. Performed By: #### C K, ESR, BMP, CRP #### [address] #### MYOG, ALDOLASE #### [facility] , Other Casts,Urine None Seen Normal None Seen [facility] Comment on above: Order Comment: Name Collection Type:: Straight Catheter Result Comment: PERF ORMED BY: [place] [address] PATHOLOGIST ACCOUNTING PRACTICE MANAGER IDANIA WHITESIDE M.D. Performed By: #### C K, ESR, BMP, CRP #### [address] #### MYOG, ALDOLASE #### [facility] , pH (U) 7.0 [pH] Normal 5.0-9.0 [facility] Comment on above: Order Comment: Name Collection Type:: Straight Catheter Performed By: #### C K, ESR, BMP, CRP #### [address] #### MYOG, ALDOLASE #### [facility] , Protein (U) [Mass/Vol] 30 mg/dL High Negative [facility] Comment on above: Order Comment: Name Collection Type:: Straight Catheter Performed By: #### C K, ESR, BMP, CRP #### [address] #### MYOG, ALDOLASE #### [facility] , RBC,Urine 1-2 Normal 0-4 [facility] Comment on above: Order Comment: Name Collection Type:: Straight Catheter Performed By: #### C K, ESR, BMP, CRP #### [address] #### MYOG, ALDOLASE #### [facility] , Renal Epithelial Cells,Urine None Seen Normal 0-1 [facility] Comment on above: Order Comment: Name Collection Type:: Straight Catheter Performed By: #### C K, ESR, BMP, CRP #### [address] #### MYOG, ALDOLASE #### [facility] , Specificy [place],Urine 1.013 Normal 1.001-1.030 [facility] Comment on above: Order Comment: Name Collection Type:: Straight Catheter Performed By: #### C K, ESR, BMP, CRP #### [address] #### MYOG, ALDOLASE #### [facility] , Squamous Epithelial Cell,Urine 5-9 High 0-2 [facility] Comment on above: Order Comment: Name Collection Type:: Straight Catheter Performed By: #### C K, ESR, BMP, CRP #### [place] [address] [place] #### MYOG, ALDOLASE #### [facility] , Urobilinogen,Urine Normal Normal Normal [facility] Comment on above: Order Comment: Name Collection Type:: Straight Catheter Performed By: #### C K, ESR, BMP, CRP #### [facility] [address] [place] [address] [place] #### MYOG, ALDOLASE #### [facility] , WBC,Urine 5-9 High 0-4 [facility] Comment on above: Order Comment: Name Collection Type:: Straight Catheter Performed By: #### C K, ESR, BMP, CRP #### [facility] [address] [place] [address] [place] #### MYOG, ALDOLASE #### [facility] , ECG 12 lead ECGon 09-25-2021 ECG 12 lead ECG [facility] [place] [address] [place] [address] Electrocardiograph Report Signed Patient: Alyce David MR#: [id number] : 1955 Acct:[id number] Age/Sex: 66 / F ADM Date: 09/25/21 Loc: Room: [address] [place] [address] Type: DIS IN Attending Dr: Matthew Laird DO Ordering Provider: Marino Hough DO Date of Service: 09/25/2103/11/1746 ECG/ECG 12 lead ECG: Weakness Copies to: Test Reason : Blood Pressure : 085/051 mmHG Vent. Rate : 054 BPM Atrial Rate : 054 BPM P-R Int : 170 ms QRS Dur : 090 ms QT Int : 546 ms P-R-T Axes : 027 012 011 degrees QTc Int : 517 ms Sinus bradycardia Prolonged QT Confirmed by Marino HOUGH DO ([id number]) on 09/25/2021 9:10:39 PM Referred By: Electronically Signed By:Marino HOUGH DO Transcribed By: MUS Signed By Marino Hough DO 0 09/25/21 2110 Normal [facility] Glucose Poct Glucometerson 0 09-25-2021 Glucose [Mass/Vol] 148 mg/dL Normal [facility] Comment on above: Result Comment: [place] Glucose Reference Range is dependent on time and content of last meal. Glucose of more than 200 mg/dL in a nonstressed, ambulatory subject supports the diagnosis of Diabetes Mellitus. PERFORMED BY: [place] [address] PATHOLOGIST ACCOUNTING PRACTICE MANAGER IADNIA WHITESIDE M.D. Performed By: #### C K, ESR, BMP, CRP #### [place] [address] [place] #### MYOG, ALDOLASE #### [facility] , Magnesiumon 09-25-2021 Magnesium [Mass/Vol] 1.1 mg/dL Low 1.6-2.6 [facility] Comment on above: Performed By: #### C OVID 19 [facility] #### [facility] [address] Partial Thromboplastin Timeo n 09-25-2021 aPTT Coag (Bld) [Time] 32.0 s Normal 25.1-36.5 [facility] Comment on above: Result Comment: PERF ORMED BY: [place] [address] PATHOLOGIST ACCOUNTING PRACTICE MANAGER IDANIA WHITESIDE M.D. Performed By: #### C OVID 19 [facility] #### [address] Prothrombin Time INRon 09-25 INR Coag (PPP) [Relative time] 1.4 {INR} Normal [facility] Comment on above: Result Comment: INR Therapeutic Range A) Pre- and Peroperative OAT started two weeks before surgery. NOT HIP SURGERY: 1.5 - 2.5 HIP SURGERY: 2 - 3 B) Primary and secondary prevention of venous THROMBOSIS: 2 - 3 C) Active venous thrombosis, pulmonary embolism and prevention of recurrent venous thrombosis: 2 - 3 D) Prevention of arterial thromboembolism including patients with mechanical heart valves: 3 - 4.5 Performed By: #### C K, ESR, BMP, CRP #### [facility] [address] [place] [address] [place] #### MYOG, ALDOLASE #### [facility] , PT Coag (PPP) [Time] 15.9 s High 9.0-12.9 [facility] Comment on above: Performed By: #### C K, ESR, BMP, CRP #### [facility] [address] [place] [address] #### MYOG, ALDOLASE #### [facility] , Redraw Potassiumon Potassium [Moles/Vol] 2.1 mmol/L Off scale low 3.5-5.1 [facility] Comment on above: Order Comment: Comme nt use ed blood Comment us ed blood Result Comment: Crit ical value result called at 1921 on 09/25/21 PERFORMED BY: [place] [address] PATHOLOGIST ACCOUNTING PRACTICE MANAGER IDANIA WHITESIDE M.D. Performed By: #### T SH3 wRFLX, T4F, LIPID, [id number] #### [address] Kate Ag Negativeon 09-26-19 Kate Ag Negative Negative Normal Negative [facility] Comment on above: Result Comment: This is a duplicate Kate SARS Antigen (MY) result to be used for statistical tracking purpose only. PERFORMED BY: [place] [address] PATHOLOGIST ACCOUNTING PRACTICE MANAGER IDANIA WHITESIDE M.D. Performed By: #### T SH3 wRFLX, T4F, LIPID, [id number] #### [address] Thyroid Stimulating Hormoneo n 09-25-2021 TSH Qn 11.80 m[IU]/L High 0.45-5.33 [facility] Comment on above: Result Comment: PERF ORMED BY: [place] [address] PATHOLOGIST ACCOUNTING PRACTICE MANAGER IDANIA WHITESIDE M.D. Performed By: #### C OVID 19 [facility] #### [place] [id number] [facility] Troponin I High Sensitivityo n 09-25-2021 Troponin I High Sensitivity 22 pg/mL High 0-15 [facility] Comment on above: Result Comment: PERF ORMED BY: [place] [address] PATHOLOGIST ACCOUNTING PRACTICE MANAGER IDANIA WHITESIDE M.D. Performed By: #### C OVID 19 [facility] #### [facility] [address] [place], [place] [id number] [facility] Urine Cultureon 09-25-2021 Bacteria identified Cx Nom (U) ORGANISM: Diptheroids (O:DIPTH) [place] Count >100,000 Organism Comments Organism not Routinely Tested for Susceptibilities PERFORMED BY: [place] [address] PATHOLOGIST ACCOUNTING PRACTICE MANAGER IDANIA WHITESIDE M.D. [facility] Comment on above: Performed By: #### C K, ESR, BMP, CRP #### [facility] [address] [place] [address] [place] #### MYOG, ALDOLASE #### [facility] , XR chest 1V portableon 09-25 XR chest 1V portable [facility] [place] [address] [place] [address] XRay Report Signed Patient: Alyce David MR#: [id number] : 1955 Acct:[id number] Age/Sex: 66 / F ADM Date: 09/25/21 Loc: ER Room: Type: [facility] ER Attending Dr: Ordering Provider: Marino Hough DO Date of Service: 09/25/21 XR/XR chest 1V portable: Weakness Copies to: Marino Hough DO Chest 09/25/2021. CLINICAL DATA: Generalized weakness. FINDINGS: A single frontal view of the chest was obtained. No prior study is available for comparison. The cardiac silhouette is normal in size. The lungs demonstrate diffuse interstitial changes. No focal pulmonary consolidation or collapse is identified. No pneumothorax or pleural effusion is seen. XR/XR chest 1V portable IMPRESSION: Nonspecific pulmonary interstitial changes. Impression dictated by: Tyree Serrano Jr., M.D.09/25/2021 8:43 PM Dictation Location: [place] [address] Transcribed By: [facility] 09/25/212042 Dictated By: Tyree Serrano Jr, MD 09/25/212040 Signed By: 09/25/212042 [facility] Consent Formson 10-17-2020 Consent Forms [id number] .00[facility] Coding Summaryon 09-21-2020 Coding Summary HTMLBase 64 LifbdlttLQl3lGh+PGhlY WQ+PE7RXOAbK55rjOKpoZ 9EQ2iXWU6NGQITCPUCBM7 FIU7smRZ1ETquT0IqowAs JzxbfKGsVF28AFb7RHS0j HjoBQhahX5iwWUjY3m7Je VoVH59wM74ZTnoPIPoCtG 3LjZpbjsgbWFy Z7grSzUuzGDvSym+PHRhY mxlIHdpZHRoPScxMDAlJy EipMufQU9mBh9eMDNlFPL vbGxhcHNlOiBj h3uaYYKpRBrmTK4hvVwuD 5CboBQ2VWZhq5m2Rs03iV I+MYVoNXG8uKuqSApvq64 2GeOpo3mxXNB9 dCOwCBccTHW3R85nb3M5C MAtRVBfBOO2qMR8eP2unC tciyclO2JhwTBcZpR1RIF 4pNGezC6mzDzn rxcouX1hOeg+P42YVQ4XG IYTJD2XZlm3R7KmTkzfpC I+WS88PAWhZP13eFEjjRF ft6ubdUj9RsTs VALuELD3hCxuJAfyx7OuG JCrR48llYJgb9V3NIMdjW ehgZReLkYawXZ1fR2uAFw znvraj9uneoug Pythc5rghm62zJ26V36eQ IzhZAEzBZZ1JHMrTHSowU adcy8vvA3pSw1+MUnfm0s cv2ispNb5ZxAg TVGhsbRuzDyiSER3l1WaG g05K9EmrIosy9QxCon3oh 53cPCvz8M4aZH0FXjqDSR sdS8pPYlqMvC4 EJBlHrOovU91dOZxNYwhY p1naHssyXquWB9yWFBytq ayZJKavW8kDSHvuICxhRo cLC2uOWKgwpyx o208OwDuYXO8IIDerTNlF 9XudJ6hCqTePCImNUFwH5 PbqLLsEXvgQ984IZehKlB 6XHHesuCkR1Yr RECxiWzsMiI8v8G3To0Dc 2DxomtlHLO9IYihUNHoKs U7RqOyZmM0H5IgKui6OVG ktDteTK1zD9Zw OBJnydaymzsucFZ2MFWyC MLznZ34oPNrXMxzYu9be9 V6a040VVTtEYRvfE78At9 udDogMTBwdCBU bI4rmdysh2cpgnmkVgPiI JJpZGb4LZc2JJDbeNmlQt XrIWB0QbK3IOT4uNKhrG4 xsRdobdulwR9q Oyc+U50zuX8aBKH2UGY5g rszEEPcjaQfSG92IJ48D0 RyPjwvdGFibGU+PGRpdiB klDkvLJ4nQkAl n9vtb5XlTJvyM0ZyZHLdC LujTwg4VDXaMIU2zVX9rO 1pTMJhHWcjc8W8cYK6K1Q easUbhe4nk7st DCNzUHvtB44grUAxg6N6Z OCxuHK5VZRbgFfiGpUqfY 93Oyc+RSDxrEhug3HlVhz pi8xjf1sjvCr9 AaPfCCWvadCwhDwdEOE4g 7PtJe34Q37sCWdwKSPmTQ ToRXQtMKQfhHgesg9ffF1 wIi8+PGNvbCB3 tIF2aC7yMIRoEiA3MHaoE 451IqFloMQhCdlms3igl8 fsdXm9AjVnBXIzisXueGg eSZV2n4TiKr64 P68zAPblDPVlBFOsGNOsC GVteMhvsp5woE1oFn2+PC 3ki5skod80bK11aFC+PHR eLJD7wXegDPyu OYIpqO3dFOhfYiG2ODToQ wZpbT22uOZeAJxyJg4flQ ckjUxdDR4jHWGvleylp25 2UgUzb6uvISNm rYAqHOijYNB7Z18cf7D6Q HDhVGXrBMM2jQR5jM4xgC lnbjogbGVmdDsgdmVydGl iDDxzRBkeT997 IHRvcDsnPlBhdGllbnQgT fCiBBq8G0AlKer8RZBemB eaCL2eiFRgPOmeJx0haLx pzVnzZM3qWXUn jldcg626AdQtp8crODUys JIsNTamVHU0X62om4W0OX QeUAWpKIU0bVH3fJ7urHj nbjogbGVmdDsg xuGiwIxpKVdxQNgyI518Q HRvcDsnPkJpcnRoIERhdG A6WW46LA56jTRpq4T0xCU 4N5GjPMGnbrtr iaiijKH0WHIqJBVbkT90D u6pmUlmXu8fPRPvKQU7VF SutPByJ0WaeZ7tSuFnAON jOEZhJ4NlfEGo XBvmZ875PTwgEzU5LJFui wGlC0OhFVSbxJtcThU4s8 N6Vc6HD7O6GZ54AS80mFB ex4E1xMG9L0Vl EKNvkjpfjvbgzLM1LQMlR TJsjD75Bo6kyKecCy3mJF CdDEA3FCStfQUfI6AycU5 yOiAjMDAwMDAw Z3SmtTShYRkkY445UUusU xR0GQQvccLqN4KlZPXvrM svJfW2d0L9At6UZPf8YV2 9FC73mFLyb1M2 oLB4K1FyUCAwbrdmrswzb KG9GNMmGJQcpF73Nt1pkU bbTc4uYSUnYVG2VSKstIK mP6LzoL9yHfYp WGWxMNEgN1BjvZFyCXrrQ 392CXgtUgB2JHGgdbCvM8 SkLEIldRjsCeM8f3V4Yp7 SAVDhFS45TWY1 aZS9MO93PR00R8XkTgmfe GFibGU+PHRhYmxlIHdpZH RoPScxMDAlJyBzdHlsZT0 zOl2vBBEkPOYc pTnwnNLmAaIye6uhWUGuY GtkAX5xzWvvS0DyyDH8HZ Eba3o9Fr21G04vC3PhwMJ +JRJmfJE8mID1 sF6iYgGjSzJ7OZcwJ670J dZtuZUyJpdfy3jos6rfaJ j0TmY7ARRkrhSrxDglZQE 7v8IfXy07X40y IHdpZHRoPSIxNSUiIHZhb Peyqg8nkN1jSp4+PGNvbC N9cBK8kG6dNsCjNgU4GKx jQ130BxVvyNVg Tpoto6ddi8rlqBj3DmGxL RGnorFobBokTKV9j2XbBw 67R4GfgRdfy9XwWis3hi2 5mBRbm9N3mNM5 T1SqAGHtrtsltZMfgYpjX K9kKRNqucwcMENcuY3lTE BkV8o5PaTfYsJ0FBfwB6F mopZ1WBPwaAUf GHkyGFN9I99ic8C4KCHwV MGtRHW2tCW3aL1zkSdfwi ogbGVmdDsgdmVydGljYWw tIVrdF142YFKw xUqkNJXqlD1rXFUcnZNxk VfiSD4qVLSxavwzCoqCEu 1BTiwgREFSTEVORSBNQVJ JRTwvdGQ+PHRk SAK6fUyfOVohIGEmaR7tF GAlS0k9XsBbEjF2HUyiO2 HnHDRhjwbiDq49yJ4rOeA yHwA3XOgaT7Ln gqN4BJQvcXCxUAbjRIC8W 89fa4T5PRAyATIlJIX4mU Z0iN8usTftkwowyVZmbKc gdmVydGljYWwt PPyeE794QCPqhBxeFoUbA bY7XnS5ZDC7P9RjRcy5ED HjvYgjCW8twTIhSHlcVt9 wwJtyrPcbWF4j TDGpqcbvUMHlqX2wQZWgm QWzpLizBP3bIBHbxjnmd4 92LcVrNYW9XVDjuCMdC4T iiQ0mSuBhVDAn POQbI7KjgFJxBGuwR383C HqaYuS7MLKaimVdE7RxFA AcxAyuZvQ6v2Z9Sv13JeZ ZZWFyczwvdGQ+ ARWyTSD0jVmaMJbaMLFst H4vIPBpK2b1MgBmVfF1MR aiQ3ExWQVypdyaWr46pI1 gTsGdMgD3NWot T5OrllS7HAJzgEYtLHgxW RE2I57fc0M2PGDyWQBdRI P5yWA1cU7huPbgavzncFJ mdDsgdmVydGlj NPktVZdiK792JOYmtVhbK kZFTUFMRTwvdGQ+PHRkIH A9rKxjHIzmDOMfyB6iVVJ pR1n7TvRdMgW8 MEgbN5MrQHErozgoXf80h I8dXnLkYaP3YVptU4Fqih K1AEPatFShMWmhAOY7R69 ou7J8SKJgZSUl QQH4kGH6lH3rxPbjlxklm GVmdDsgdmVydGljYWwtYW wkR855QNMqfTbpKxKwG7M ycmluZyBPdXRw HUDmBD79FK61BR00X9KjB jwvdGFibGU+PHRhYmxlIH dpZHRoPScxMDAlJyBzdHl vEP0jIm1lCJIu YPXraFoxjTGwOkMtv3coC JMgRLssJN3nmClqG5IfiX S0FUUvk3a2Uw71U73bQ3V vdXA+PGNvbCB3 jQH4jG0zUpKzZbI5OSklE 750TnBcfCEgPxuzf9eql7 pbrDs5SoAnKIIxazNvgMh mGNJ1w0NmMd25 N46lMXjbTTTiOGUdNWKlM TIztKwecp6jzB9qAy6+PG CsnEQ9hQU0bW3oXsUcKtY 8PAniW885WaXu xRCiAtiqQ25bN3NafYU+P EKwSsr4XRNjrFcrQY2kjG PoLFlsIq4tNRA2YmMhVlJ tVJmcU7BfYLSn smmbjjhtgFN2KMNsMKHvy A50Or5smAzcNq2hPDEgIO J0TJZryGEkR4IbaJ0zPgU eOXAbLGCuH4Dk oQCoWAvwP613KYxaKuQ0L HZaqpNuV6WcTBYuxUtpPf T0i4J9Eb7DwKkaeOIaIX8 rVmCzCJv3N5Lx Rhi0GCUbyFmkJV8ilJXnX LvwFv4hpNftkRacZW5xQA Zqqfdjy239FqMmc2pxATT wcHQgVGltZXM7 Q30dx9T3LJEbYMFxEBO9r FW4qY1yjIlowwccaCJkqQ cfcyLiiHtiTQfxVWaxG44 6IHRvcDsnPkZJ Pzp9O2JkExw1SYSziGzwY C2vvJGoBBjpGd0qmYqicG wlYR6wODZgurxsu859LgG ow0hyNYQfcHUd GCrcDAI2Q34hu6P2OCFeA ENaFPQ6iTA1nL6lnFroge ogbGVmdDsgdmVydGljYWw kYSxgE058MLKi iKmsAt0MNue4P5RrFtm3Q EYcoQamBL5yuBAkWEdaHl 6obQrqxRytHD2yQRJqgrn cs011NiGhr0vi PATtrRPlNLpbZNO6Z92oo 3M0SWWaGAAnJSU1bWM6pK 1hbGlnbjogbGVmdDsgdmV ydGljYWwtYWxp F679QZFxmCclMnUhqMZbC jwvdGQ+LZ39pn34P2QzGr mpGlc1UJTqCWH3zFT6iU2 bEAJvALrwq0H1 [facility] (more content not included)... [facility] Consent Formson 09-19-2020 Consent Forms [id number]#1 [facility]-18-2020 Consent Forms [id number]#1 [facility] Coding Summaryon 03-16-2020 Coding Summary CODING DATE: 03/16/2020 [facility] STATUS: Home PAYOR: Medicare MC ADMIT DX: REASON FOR VISIT DX: D50.9 Iron deficiency anemia, unspecified E78.5 Hyperlipidemia, unspecified M10.9 Gout, unspecified FINAL DX: PRINCIPAL: D50.9 Iron deficiency anemia, unspecified SECONDARY: E78.5 Hyperlipidemia, unspecified M10.9 Gout, unspecified PYMT PROC APC STAT DESCRIPTION DOCTOR NAME DATE NOTE: The code number assigned matches the documented diagnosis and / or procedure in the patient's chart. However, the narrative phrase printed from the coding software may appear abbreviated, or result in slightly different terminology. Coded By: Corinna Roy Date Saved: 03/16/2020 03:35 pm [facility] Coding Summary CODING DATE: 03/16/2020 [facility] STATUS: Home PAYOR: Medicare MC ADMIT DX: REASON FOR VISIT DX: D64.9 Anemia, unspecified FINAL DX: PRINCIPAL: D64.9 Anemia, unspecified SECONDARY: PYMT PROC APC STAT DESCRIPTION DOCTOR NAME DATE NOTE: The code number assigned matches the documented diagnosis and / or procedure in the patient's chart. However, the narrative phrase printed from the coding software may appear abbreviated, or result in slightly different terminology. Coded By: Corinna Roy Date Saved: 03/16/2020 03:35 pm [facility] Provider Orderson 03-16-2020 Provider Orders [id number]#1 [facility] [id number]#1 [facility] .Auto Diff 03-15-2020 Auto [place] % 9 % Normal 1-12 [facility] Comment on above: Performed By: #### 1 8739978, 1027708084, 492784978, 7100672, 6669896234, 6445812, 7259763 ####[facility] (DEFAULT)[address] [place] [address] 60144 Baso Abs# 0.0 x10 Normal 0.0-0.2 [facility] Comment on above: Performed By: #### 1 1770620, 5525093827, 113905816, 8278665, 7099250658, 0855643, 7321530 ####[facility] (DEFAULT)[address] [place] [address] 36308 Basophils/100 WBC (Bld) 1.0 % Normal 0.2-2.0 [facility] Comment on above: Performed By: #### 1 4550366, 9139976204, 044889225, 8522709, 7331027298, 0339984, 3245276 ####[facility] (DEFAULT)[address] [place] [address] 92769 Eos Abs# 0.1 x10 Normal 0.0-0.4 [facility] Comment on above: Performed By: #### 1 4706409, 9925263163, 073327848, 9908594, 3235919013, 8918073, 0416644 ####[facility] (DEFAULT)[address] [place] [address] 50748 Eosinophils/100 WBC (Bld) 2.6 % Normal 0.9-4.0 [facility] Comment on above: Performed By: #### 1 9798102, 2143287778, 329974633, 6389767, 5732777064, 5849232, 3129187 ####[facility] (DEFAULT)[address] [place] [address] 64337 Lymph Abs# 0.7 x10 Low 1.3-2.9 [facility] Comment on above: Performed By: #### 1 7437809, 3272391998, 512400367, 5448175, 2351504055, 1053552, 1421203 ####[facility] (DEFAULT)[address] [place] [address] Lymphocytes/100 WBC (Bld) 16 % Normal 14-48 [facility] Comment on above: Performed By: #### 1 3264436, 9384197221, 958606910, 0583426, 5466882603, 0984321, 0256942 ####[facility] (DEFAULT)[address] [place] [address] [place] Abs# 0.4 x10 Normal 0.0-0.8 [facility] Comment on above: Performed By: #### 1 3953550, 5619072185, 382254818, 0244240, 0756344402, 7512042, 5509413 ####[facility] (DEFAULT)[address] [place] [address] Neut Abs# 3.0 x10 Normal 1.5-9.2 [facility] Comment on above: Performed By: #### 1 9163658, 5460582284, 112413081, 0806985, 6230825668, 8615625, 4201477 ####[facility] (DEFAULT)[address] [place] [address] Neutrophils/100 WBC (Bld) 72 % Normal 44-88 [facility] Comment on above: Performed By: #### 1 5871662, 0375885582, 415157851, 0181930, 9703591170, 9912968, 5641562 ####[facility] (DEFAULT)[address] [place] [address] CBC w/ Auto Diffon 0 Erythrocyte distribution width (RBC) [Ratio] 12.7 % Normal 11.5-15.0 [facility] Comment on above: Performed By: #### 1 3312022, 1895205854, 258005268, 0259966, 5932508583, 6398645, 6886982 ####[facility] (DEFAULT)[address] [place] [address] Hematocrit (Bld) [Volume fraction] 36.3 % Normal 33.7-40.4 [facility] Comment on above: Performed By: #### 1 4920869, 8035562486, 497871709, 9129234, 6488792139, 2618642, 2191297 ####[facility] (DEFAULT)[address] [place] [address] Hemoglobin (Bld) [Mass/Vol] 11.5 g/dL Normal 11.3-15.9 [facility] Comment on above: Performed By: #### 1 7858267, 6189311089, 744000190, 6390656, 0781051193, 7079842, 9731903 ####[facility] (DEFAULT)[address] [place] [address] Instr WBC 4.2 x10 Invalid Interpretation Code [facility] Comment on above: Performed By: #### 1 2254142, 8609295919, 465435553, 6607148, 1431751874, 2919576, 3490686 ####[facility] (DEFAULT)[address] [place] [address] Man Diff? Auto Normal [facility] Comment on above: Performed By: #### 1 7442129, 0797150024, 536910585, 4529912, 6258391102, 4126835, 8918254 ####[facility] (DEFAULT)[address] [place] [address] MCH (RBC) [Entitic mass] 32 pg Normal 24-34 [facility] Comment on above: Performed By: #### 1 0460065, 3578094496, 544717482, 3945111, 7910014605, 1493294, 5132751 ####[facility] (DEFAULT)[address] [place] [address] MCHC (RBC) [Mass/Vol] 32 g/dL Normal 26-37 [facility] Comment on above: Performed By: #### 1 3075050, 6769841980, 600285981, 7424501, 4871703927, 5542084, 6013743 ####[facility] (DEFAULT)[address] [place] [address] MCV (RBC) [Entitic vol] 100 fL Normal 81-100 [facility] Comment on above: Performed By: #### 1 9507200, 7498113977, 591320573, 0823361, 6923655301, 6752814, 5226913 ####[facility] (DEFAULT)[address] [place] [address] Platelet 198 x10 Normal 138-427 [facility] Comment on above: Performed By: #### 1 0508890, 9334458574, 122198531, 9743532, 2351553673, 6812826, 0823853 ####[facility] (DEFAULT)[address] [place] [address] Platelet mean volume (Bld) [Entitic vol] 10.0 fL Normal 6.3-10.2 [facility] Comment on above: Performed By: #### 1 2553291, 2431590456, 765750981, 9086921, 5638821815, 1501403, 2751678 ####[facility] (DEFAULT)[address] [place] [address] RBC 3.62 x10 Low 3.70-5.30 [facility] Comment on above: Performed By: #### 1 3436548, 6975940652, 112712751, 6385864, 8846803682, 0626749, 0733452 ####[facility] (DEFAULT)[address] [place] [address] WBC 4.2 x10 Normal 3.5-10.5 [facility] Comment on above: Performed By: #### 1 9258914, 7510947557, 823571878, 9402192, 6453957175, 9197664, 7641339 ####[facility] (DEFAULT)[address] [place] [address] CMP Standardon 03-15-2020 eGFR Non AA >60 Invalid Interpretation Code [facility] Comment on above: Performed By: #### 1 0694498, 4887959581, 417927973, 6455716, 5851026853, 8342738, 0260789 ####[facility] (DEFAULT)[address] [place] [address] 78008 eGFR AA >60 Invalid Interpretation Code [facility] Comment on above: Result Comment: [employer] kenny Kidney disease could be indicated at eGFRs of less than 60 ml/min/1.73m2. Kidney Failure is indicated at less than 15 ml/min/1.73m2 Performed By: #### 1 5498270, 5676887977, 510108664, 3584545, 2023141774, 0407018, 0138741 ####[facility] (DEFAULT)[address] [place] [address] 31849 Albumin [Mass/Vol] 4.0 g/dL Normal 3.5-5.0 [facility] Comment on above: Performed By: #### 1 3681991, 1903366126, 865587668, 1561719, 1412664239, 5428291, 4095142 ####[facility] (DEFAULT)[address] [place] [address] 23266 Albumin/Globulin [Mass ratio] 1.1 {ratio} Low 1.4-2.6 [facility] Comment on above: Performed By: #### 1 8130525, 5356631905, 160756928, 0541122, 8871043858, 5761867, 1600247 ####[facility] (DEFAULT)[address] [place] [address] 55149 Alk Phos 64 IU/L Normal 32-91 [facility] Comment on above: Performed By: #### 1 6680798, 7802627017, 855746476, 8620117, 9645735779, 6098799, 3494121 ####[facility] (DEFAULT)[address] [place] [address] ALT [Catalytic activity/Vol] 17.0 U/L Normal 14.0-54.0 [facility] Comment on above: Performed By: #### 1 1457656, 6807679403, 727150679, 1085604, 5787047280, 2268122, 6679102 ####[facility] (DEFAULT)[address] [place] [address] 95001 Anion gap [Moles/Vol] 14.0 mmol/L Normal 5.0-19.0 [facility] Comment on above: Performed By: #### 1 3248913, 2854825562, 298509486, 7422640, 3381423163, 1342487, 6728164 ####[facility] (DEFAULT)[address] [place] [address] 17043 AST [Catalytic activity/Vol] 21 U/L Normal 15-41 [facility] Comment on above: Performed By: #### 1 1193918, 8362036583, 088609249, 1905208, 7612794974, 5332101, 7761263 ####[facility] (DEFAULT)[address] [place] [address] 65302 Bili Total 0.7 mg/dL Normal 0.3-1.2 [facility] Comment on above: Performed By: #### 1 0997244, 5335246695, 799060894, 5618990, 9110143693, 3717058, 8803976 ####[facility] (DEFAULT)[address] [place] [address] 58347 Calcium [Mass/Vol] 9.3 mg/dL Normal 8.9-10.3 [facility] Comment on above: Performed By: #### 1 4249699, 5981340432, 636707664, 1469588, 6525133723, 6504750, 9199236 ####[facility] (DEFAULT)[address] [place] [address] 13150 Chloride [Moles/Vol] 105 mmol/L Normal 101-111 [facility] Comment on above: Performed By: #### 1 2499464, 3999459429, 109105111, 6281516, 3156654883, 9927341, 6380434 ####[facility] (DEFAULT)[address] [place] [address] 38702 CO2 [Moles/Vol] 24 mmol/L Normal 21-32 [facility] Comment on above: Performed By: #### 1 6072452, 8923944429, 649058532, 3648974, 9854829762, 9765187, 6216223 ####[facility] (DEFAULT)[address] [place] [address] 08355 Creatinine [Mass/Vol] 0.76 mg/dL Normal 0.60-1.30 [facility] Comment on above: Performed By: #### 1 7040442, 5727525868, 522349520, 5009464, 1717637341, 0593359, 1452477 ####[facility] (DEFAULT)[address] [place] [address] 68354 Globulin (S) [Mass/Vol] 3.5 g/dL Normal 1.5-4.3 [facility] Comment on above: Performed By: #### 1 8821600, 3107822865, 018279420, 9996387, 4309702918, 6337092, 4783771 ####[facility] (DEFAULT)[address] [place] [address] 27980 Glucose [Mass/Vol] 113.0 mg/dL Normal 74.0-118.0 [facility] Comment on above: Performed By: #### 1 7233363, 4673053116, 617569623, 7320723, 3588583098, 4163941, 7999326 ####[facility] (DEFAULT)[address] [place] [address] 22043 Osmolality 280 mOsm/L Invalid Interpretation Code [facility] Comment on above: Performed By: #### 1 6404907, 7651131047, 090703901, 4620580, 6875148681, 5065777, 9830063 ####[facility] (DEFAULT)[address] [place] [address] 26329 Potassium [Moles/Vol] 4.3 mmol/L Normal 3.6-5.1 [facility] Comment on above: Performed By: #### 1 5527516, 8834393611, 963800729, 2152230, 5253525088, 9907431, 0928035 ####[facility] (DEFAULT)[address] [place] [address] 79672 Protein [Mass/Vol] 7.5 g/dL Normal 6.5-8.1 [facility] Comment on above: Performed By: #### 1 0381724, 2551046639, 940102218, 9187840, 3783202702, 0699833, 3456649 ####[facility] (DEFAULT)[address] [place] [address] 11569 Sodium [Moles/Vol] 139.0 mmol/L Normal 136.0-144.0 [facility] Comment on above: Performed By: #### 1 5175496, 0930588936, 794627511, 8728536, 4471135700, 0888646, 6561525 ####[facility] (DEFAULT)[address] [place] [address] 20711 Urea nitrogen [Mass/Vol] 18 mg/dL Normal 8- [facility] Comment on above: Performed By: #### 1 8271913, 4728395093, 276733928, 6832324, 2840351684, 4732704, 0125625 ####[facility] (DEFAULT)[address] [place] [address] 18694 Urea nitrogen/Creatinine [Mass ratio] 24.0 mg/mg High 4.6-16.2 [facility] Comment on above: Performed By: #### 1 9902708, 3758987682, 656230910, 7368810, 2452890444, 0271330, 1272875 ####[facility] (DEFAULT)[address] [place] [address] 07281 Ferritinon 03-15-2020 Ferritin [Mass/Vol] 280.1 ng/mL High 12.0-150.0 [facility] Comment on above: Performed By: #### 1 5436945, 8786798857, 893636776, 0363286, 7165522007, 7006582, 9080450 ####[facility] (DEFAULT)[address] [place] [address] 76699 Iron Profileon 03-15-2020 Iron [Mass/Vol] 48.0 ug/dL Normal 28.0-170.0 [facility] Comment on above: Performed By: #### 2 8490993 #### [facility] (DEFAULT) [address] [place] [address] 29736 Iron Sat 13 % Low 20-55 [facility] Comment on above: Performed By: #### 2 7427287 #### [facility] (DEFAULT) [address] [place] [address] 07576 TIBC 378 mcg/dL Normal 250-400 [facility] Comment on above: Performed By: #### 2 9514294 #### [facility] (DEFAULT) [address] [place] [address] 66679 Transferrin [Mass/Vol] 269.8 mg/dL Normal 192.0-382.0 [facility] Comment on above: Performed By: #### 2 3520425 #### [facility] (DEFAULT) [address] [place] [address] 90678 Lipid Panel Standardon 03-15 Cholesterol [Mass/Vol] 159.0 mg/dL Normal 66.0-200.0 [facility] Comment on above: Result Comment: Lorene rable - Less than 200 mg/dL Borderline high risk - 200-239 mg/dL High risk - 240 mg/dL and over. Performed By: #### 1 3265622, 7873380176, 539534292, 7875802, 6932625381, 3245033, 5336025 ####[facility] (DEFAULT)[address] [place] [address] 54402 Cholesterol in HDL [Mass/Vol] 42 mg/dL Normal 40-71 [facility] Comment on above: Result Comment: High risk - <40 mg/dL. Performed By: #### 1 0425092, 0838318709, 020768530, 0273321, 7523630511, 9569044, 5690351 ####[facility] (DEFAULT)[address] [place] [address] 94448 Cholesterol in LDL [Mass/Vol] 80 mg/dL Normal 1-100 [facility] Comment on above: Result Comment: Opti mal - Less than 100 mg/dL Borderline high risk - 130-159 mg/dL High risk - 160-189 mg/dL. Performed By: #### 1 6825898, 8628803550, 011025553, 2829931, 0228804933, 9353935, 1328404 ####[facility] (DEFAULT)[address] [place] [address] 91542 Cholesterol.total/Judith sterol in HDL [Mass ratio] 3.8 {ratio} Normal 0.0-4.5 [facility] Comment on above: Performed By: #### 1 2269964, 3860360414, 251181139, 9781857, 6818592888, 3856014, 0803452 ####[facility] (DEFAULT)[address] [place] [address] 60506 Triglyceride [Mass/Vol] 187.0 mg/dL High 0.0-150.0 [facility] Comment on above: Performed By: #### 1 9649743, 5042165465, 917317199, 9936980, 5267734572, 2761457, 3531467 ####[facility] (DEFAULT)[address] [place] [address] 40451 VLDL. 37 mg/dL Normal 5-40 [facility] Comment on above: Performed By: #### 1 1889849, 4511803345, 271255668, 9266547, 0291849478, 5068738, 9968800 ####[facility] (DEFAULT)[address] [place] [address] 86048 TSH w/ Reflex to FT4on 03-15 TSH Qn 3.27 m[IU]/L Normal 0.45-5.33 [facility] Comment on above: Result Comment: Gene ral Population (males and non- females, aged 21-88) 0.45 - 5.33 Females, 1st Trimester 0.05 - 3.70 Females, 2nd Trimester 0.31 - 4.35 Females, 3rd Trimester 0.41 - 5.18 Performed By: #### 1 6724389, 0745635592, 518679086, 1631629, 8086026178, 2055819, 1939064 ####[facility] (DEFAULT)[address] [place] [address] 77016 Uric Acidon 03-15-2020 Urate [Mass/Vol] 5.7 mg/dL Normal 2.6-8.0 [facility] Comment on above: Performed By: #### 1 3914794, 6584043516, 629209703, 0799519, 9281472337, 3144256, 8358617 ####[facility] (DEFAULT)[address] [place] [address] Coding Summaryon 02-26-2020 Coding Summary CODING DATE: 02/26/2020 [facility] STATUS: Home PAYOR: Medicare MC ADMIT DX: REASON FOR VISIT DX: M79.671 Pain in right foot M25.562 Pain in left knee FINAL DX: PRINCIPAL: M10.9 Gout, unspecified SECONDARY: E87.1 Hypo-osmolality and hyponatremia D64.9 Anemia, unspecified S83.92XA Sprain of unspecified site of left knee, initial encounter W19.XXXD Unspecified fall, subsequent encounter PYMT PROC APC STAT DESCRIPTION DOCTOR NAME DATE NOTE: The code number assigned matches the documented diagnosis and / or procedure in the patient's chart. However, the narrative phrase printed from the coding software may appear abbreviated, or result in slightly different terminology. Coded By: Jatin Street' Date Saved: 02/26/2020 01:37 pm [facility] Coding Summary CODING DATE: 02/26/2020 [facility] STATUS: Home PAYOR: Medicare MC APC DESCRIPTION 5522 Level 2 Imaging without Contrast ADMIT DX: REASON FOR VISIT DX: M79.671 Pain in right foot M25.562 Pain in left knee FINAL DX: PRINCIPAL: M10.9 Gout, unspecified SECONDARY: E87.1 Hypo-osmolality and hyponatremia D64.9 Anemia, unspecified S83.92XA Sprain of unspecified site of left knee, initial encounter W19.XXXD Unspecified fall, subsequent encounter PYMT PROC APC STAT DESCRIPTION DOCTOR NAME DATE NOTE: The code number assigned matches the documented diagnosis and / or procedure in the patient's chart. However, the narrative phrase printed from the coding software may appear abbreviated, or result in slightly different terminology. Coded By: Jatin Street' Date Saved: 02/26/2020 01:35 pm [facility] .Auto Diff 1on 02-22-2020 Auto [place] % 7 % Normal 08-01 [facility] Comment on above: Performed By: #### 1 [id number], 3954930947, 0517750, 5310022771, 02998845, 3474971, 4191897988 ####[facility] (DEFAULT)[address] [place] [address] 70433 Baso Abs# 0.0 x10 Normal 0.0-0.2 [facility] Comment on above: Performed By: #### 1 110008239, 0586956539, 7747939, 6350383228, 00001951, 3291344, 7344281262 ####[facility] (DEFAULT)[address] [place] [address] 48325 Basophils/100 WBC (Bld) 0.4 % Normal 0.2-2.0 [facility] Comment on above: Performed By: #### 1 468521846, 0175714560, 0153577, 0211004048, 98666976, 2739458, 5895087879 ####[facility] (DEFAULT)[address] [place] [address] 96171 Eos Abs# 0.1 x10 Normal 0.0-0.4 [facility] Comment on above: Performed By: #### 1 448603718, 3402171150, [id number], [id number], 27682904, 1239960, [id number] ####[facility] (DEFAULT)[address] [place] [address]26 Eosinophils/100 WBC (Bld) 2.3 % Normal 0.9-4.0 [facility] Comment on above: Performed By: #### 1 [id number], [id number], [id number], [id number], 12811670, 8972826, [id number] ####[facility] (DEFAULT)[address] [place] [address]9066 Lymph Abs# 1.1 x10 Low 1.3-2.9 [facility] Comment on above: Performed By: #### 1 [id number], [id number], 7214603, [id number], 36463775, 5058402, [id number] ####[facility] (DEFAULT)[address] [place] [address] Lymphocytes/100 WBC (Bld) 21 % Normal 14-48 [facility] Comment on above: Performed By: #### 1 [id number], [id number], 2934217, [id number], 64021451, 4866909, [id number] ####[facility] (DEFAULT)[address] [place] [address] [place] Abs# 0.4 x10 Normal 0.0-0.8 [facility] Comment on above: Performed By: #### 1 [id number], [id number], 6812174, [id number], 17472654, 3979576, [id number] ####[facility] (DEFAULT)[address] [place] [address] Neut Abs# 3.6 x10 Normal 1.5-9.2 [facility] Comment on above: Performed By: #### 1 [id number], [id number], 8458967, [id number], 84375295, 8103412, [id number] ####[facility] (DEFAULT)[address] [place] [address]842 Neutrophils/100 WBC (Bld) 69 % Normal 44-88 [facility] Comment on above: Performed By: #### 1 [id number], [id number], 5437523, 1934012730, 25741554, 3517779, [id number] ####[facility] (DEFAULT)[address] [place] [address] [facility] Standardon 02-22-2020 eGFR Non AA >60 Invalid Interpretation Code [facility] Comment on above: Performed By: #### 1 [id number], [id number], 8517016, [id number], 33237638, 1235992, [id number] ####[facility] (DEFAULT)[address] [place] [address] 14496 eGFR AA >60 Invalid Interpretation Code [facility] Comment on above: Result Comment: [employer] kenny Kidney disease could be indicated at eGFRs of less than 60 ml/min/1.73m2. Kidney Failure is indicated at less than 15 ml/min/1.73m2 Performed By: #### 1 [id number], [id number], [id number], [id number], 73259249, 4828533, [id number] ####[facility] (DEFAULT)[address] [place] [address] 27003 Anion gap [Moles/Vol] 15.0 mmol/L Normal 5.0-19.0 [facility] Comment on above: Performed By: #### 1 [id number], [id number], 3494771, [id number], 39757874, 8958433, [id number] ####[facility] (DEFAULT)[address] [place] [address] 27271 Calcium [Mass/Vol] 9.2 mg/dL Normal 8.9-10.3 [facility] Comment on above: Performed By: #### 1 [id number], [id number], 2695316, [id number], 28130030, 2728347, [id number] ####[facility] (DEFAULT)[address] [place] [address] 00307 Chloride [Moles/Vol] 96 mmol/L Low 101-111 [facility] Comment on above: Performed By: #### 1 [id number], [id number], 8933114, [id number], 98251401, 8523115, [id number] ####[facility] (DEFAULT)[address] [place] [address] 11862 CO2 [Moles/Vol] 23 mmol/L Normal 21-32 [facility] Comment on above: Performed By: #### 1 [id number], [id number], 7506088, 3664665991, 06917124, 7623180, [id number] ####[facility] (DEFAULT)[address] [place] [address] 97416 Creatinine [Mass/Vol] 0.80 mg/dL Normal 0.60-1.30 [facility] Comment on above: Performed By: #### 1 [id number], [id number], 8093688, 6770193139, 96144173, 4635817, [id number] ####[facility] (DEFAULT)[address] [place] [address] 34059 Glucose [Mass/Vol] 111.0 mg/dL Normal 74.0-118.0 [facility] Comment on above: Performed By: #### 1 [id number], [id number], 6480037, 6223486486, 41816413, 3856899, [id number] ####[facility] (DEFAULT)[address] [place] [address] 95390 Osmolality 262 mOsm/L Invalid Interpretation Code [facility] Comment on above: Performed By: #### 1 [id number], [id number], 4540512, 6122260300, 24267079, 6008196, [id number] ####[facility] (DEFAULT)[address] [place] [address] 42736 Potassium [Moles/Vol] 4.7 mmol/L Normal 3.6-5.1 [facility] Comment on above: Performed By: #### 1 [id number], [id number], 3047441, 1962096018, 71176186, 0813562, [id number] ####[facility] (DEFAULT)[address] [place] [address] 91412 Sodium [Moles/Vol] 129.0 mmol/L Low 136.0-144.0 [facility] Comment on above: Performed By: #### 1 [id number], [id number], 5675651, 6030407284, 75755753, 1954912, 0248217686 ####[facility] (DEFAULT)[address] [place] [address] 03933 Urea nitrogen [Mass/Vol] 20 mg/dL Normal 8-26 [facility] Comment on above: Performed By: #### 1 [id number], [id number], 7701222, 1269813829, 01493047, 9215977, [id number] ####[facility] (DEFAULT)[address] [place] [address] 93020 Urea nitrogen/Creatinine [Mass ratio] 25.0 mg/mg High 4.6-16.2 [facility] Comment on above: Performed By: #### 1 [id number], [id number], 0475967, 9445757283, 71445260, 8208500, [id number] ####[facility] (DEFAULT)[address] [place] [address] 32419 CBC w/ Auto Diffon 0 Erythrocyte distribution width (RBC) [Ratio] 12.8 % Normal 11.5-15.0 [facility] Comment on above: Performed By: #### 1 [id number], 5599143614, 7258615, 6347890956, 39014191, 5217542, 2736886451 ####[facility] (DEFAULT)[address] [place] [address] 15507 Hematocrit (Bld) [Volume fraction] 31.3 % Low 33.7-40.4 [facility] Comment on above: Performed By: #### 1 [id number], [id number], 2424406, 1723342961, 29469475, 5017056, 1322922038 ####[facility] (DEFAULT)[address] [place] [address] 92896 Hemoglobin (Bld) [Mass/Vol] 10.3 g/dL Low 11.3-15.9 [facility] Comment on above: Performed By: #### 1 [id number], [id number], 9805394, 6903510240, 27210373, 6535657, 9689513215 ####[facility] (DEFAULT)[address] [place] [address] 02484 Instr WBC 5.2 x10 Invalid Interpretation Code [facility] Comment on above: Performed By: #### 1 [id number], [id number], 8756001, 9807959549, 30248042, 3996011, [id number] ####[facility] (DEFAULT)[address] [place] [address] 04066 Man Diff? Auto Normal [facility] Comment on above: Performed By: #### 1 [id number], 7534925580, 0834462, 3977379646, 77883497, 1009885, 9639603528 ####[facility] (DEFAULT)[address] [place] [address] 83300 MCH (RBC) [Entitic mass] 32 pg Normal 24-34 [facility] Comment on above: Performed By: #### 1 [id number], 9341961760, 0875422, 2250252830, 10412689, 8374448, 7490550991 ####[facility] (DEFAULT)[address] [place] [address] MCHC (RBC) [Mass/Vol] 33 g/dL Normal 26-37 [facility] Comment on above: Performed By: #### 1 [id number], 4348756064, 2859043, 5821002770, 48813027, 5352943, 6008144419 ####[facility] (DEFAULT)[address] [place] [address] MCV (RBC) [Entitic vol] 98 fL Normal 81-100 [facility] Comment on above: Performed By: #### 1 [id number], 3722977229, 5464509, 1622356724, 16490928, 8642426, [id number] ####[facility] (DEFAULT)[address] [place] [address] Platelet 280 x10 Normal 138-427 [facility] Comment on above: Performed By: #### 1 [id number], 6483929580, 3290786, 5652775868, 63392482, 4223601, 6486569630 ####[facility] (DEFAULT)[address] [place] [address] Platelet mean volume (Bld) [Entitic vol] 8.8 fL Normal 6.3-10.2 [facility] Comment on above: Performed By: #### 1 [id number], 6275807318, 0835960, 7041149030, 34081848, 7968979, 8989072150 ####[facility] (DEFAULT)[address] [place] [address] RBC 3.19 x10 Low 3.70-5.30 [facility] Comment on above: Performed By: #### 1 [id number], 1299186699, 2443516, 2845535615, 21030618, 2321480, 3087012673 ####[facility] (DEFAULT)[address] [place] [address] WBC 5.2 x10 Normal 3.5-10.5 [facility] Comment on above: Performed By: #### 1 [id number], 9980556179, 2944526, 0599375820, 91186277, 6368114, [id number] ####[facility] (DEFAULT)[address] [place] [address] ED Clinical Summaryon 2019 ED Clinical Summary [facility] - Emergency Department [address] [place], [place] [id number] ED Clinical Summary PERSON INFORMATION Name: ALYCE DAVID Age: 64 Years Sex: FEMALE : 1955 MRN: Acct#: Visit Reason: Foot pain; RIGHT FOOT SWELLING Arrival: 02/22/2020 11:49:30 Discharge: 02/22/2020 13:50:00 LOS: 000 02:01 Check In: 02/22/2020 11:49:30 Checkout:02/22/2020 13:50:00 Address: [address] [place] [address] PCP: Aysha Clements MD PROVIDER INFORMATION Provider Role Assigned Unassigned [employer]if [employer] ED PA 02/22/2020 11:50:35 Noemy Ruiz [employer] Nurse 02/22/2020 11:54:20 02/22/2020 13:29:23 Noemy Ruiz [employer] Nurse 02/22/2020 13:29:28 VITALS INFORMATION Vital Sign Triage Latest Temperature Tympanic Temperature Temporal Artery Pulse Rate 68 bpm 68 bpm O2 Sat 98 % 97 % Respiratory Rate 18 br/min 18 br/min Blood Pressure /91 mmHg /91 mmHg MEDICAL INFORMATION Medications Given: Allergy Information: No Known Medication Allergies PHYSICIAN DOCUMENTATION Patient: ALYCE DAVID Age: 64 years Sex: FEMALE : 1955 Associated Diagnoses: Gout of big toe; Hyponatremia; Anemia; Sprain of knee Author: Asif Gaming Basic Information Time seen: Date & time 02/22/2020 12:03:00. History source: Patient. Arrival mode: Private vehicle. History limitation: None. History of Present Illness Patient 64-year-old female who presents to the emergency department for evaluation of right foot pain, and left knee pain, patient seen in room 7. Patient comes in initially for evaluation of right foot pain redness and swelling, apparently she has seen her doctor through video, and he wanted her to have an x-ray, suspect it could be gout, but could be cellulitis, it is quite painful, she thinks that even the sheets hurt it anything touching it, she has no history of gout. Patient also states she fell a couple months ago on her left knee, has been having pain in the left knee. She contacted her doctor as apparently she does not see him in person, they go through phone secondary to COVID precautions. She states that he would like her to have some basic blood work, but did not specify. She is able to weight-bear with the left knee, and the pain itself is almost totally resolved but still painful. She denies any recent fevers or chills, cough or cold type symptoms, shortness of breath, chest pain, abdominal pain, nausea or vomiting. She denies any history of trauma. Review of Systems Constitutional symptoms: No fever, no chills. Skin symptoms: No rash, no abrasions. Eye symptoms: No discharge, no diplopia, no blurred vision. Respiratory symptoms: No shortness of breath, Cardiovascular symptoms: No chest pain, Gastrointestinal symptoms: No abdominal pain, no nausea, no vomiting. Musculoskeletal symptoms: Negative except as documented in HPI. Health Status Allergies: Allergic Reactions (All) No Known Medication Allergies. Medications: (Selected) Documented Medications Documented atenolol 50 mg oral tablet: 50 mg, 1 tab(s), PO, Daily, 0 Refill(s) atorvastatin 40 mg oral tablet: 40 mg, 1 tab(s), PO, Daily, 0 Refill(s) hydroCHLOROthiazide-l isinopril 25 mg-20 mg oral tablet: 1 tab(s), PO, Daily, 0 Refill(s). Past Medical/ Family/ Social History Medical history: No active or resolved past medical history items have been selected or recorded.. Surgical history: No active procedure history items have been selected or recorded.. Family history: No family history items have been selected or recorded.. Social history: Social & Psychosocial Habits No Data Available . Problem list: No qualifying data available . Physical Examination Vital Signs Vital Signs 02/22/2020 11:55 EDT Temperature Oral 36.9 DegC Peripheral Pulse Rate 68 bpm Respiratory Rate 18 br/min Systolic Blood Pressure 173 mmHg HI Diastolic Blood Pressure 91 mmHg HI SpO2 98 % Oxygen Therapy Room air . General: Alert, no acute distress. Skin: Warm, dry. Head: Normocephalic, atraumatic. Neck: Supple, trachea midline. Eye: Extraocular movements are intact, normal conjunctiva. Ears, nose, mouth and throat: Oral mucosa moist. Cardiovascular: +S1, S2 Regular. Respiratory: Lungs are clear to auscultation, respirations are non-labored, breath sounds are equal. Gastrointestinal: Soft, Nontender, Non distended, Normal bowel sounds. Musculoskeletal: Patient's right foot is examined, both feet have dirt on the heels, and stained, with heavy calluses as if she goes barefoot. I do not see any breakdown of the skin that is obvious, or intertriginously, she has redness throughout the great toe, and the dorsum of the foot diffusely, she has 2+ pitting edema in the foot, the foot is warm and tender to the touch. She has a strong 2+ dorsalis pedis pulse. There is a little discomfort with palpation at the base of the fifth metatarsal and diffusely in the me (more content not included)... Normal [facility] ED Note - Physicianon 2019 ED Note - Physician Patient: ALYCE DAVID Age: 64 years Sex: FEMALE : 1955 Associated Diagnoses: Gout of big toe; Hyponatremia; Anemia; Sprain of knee Author: Jesus TIMMONS, Asif Meza Basic Information Time seen: Date & time 02/22/2020 12:03:00. History source: Patient. Arrival mode: Private vehicle. History limitation: None. History of Present Illness Patient 64-year-old female who presents to the emergency department for evaluation of right foot pain, and left knee pain, patient seen in room 7. Patient comes in initially for evaluation of right foot pain redness and swelling, apparently she has seen her doctor through video, and he wanted her to have an x-ray, suspect it could be gout, but could be cellulitis, it is quite painful, she thinks that even the sheets hurt it anything touching it, she has no history of gout. Patient also states she fell a couple months ago on her left knee, has been having pain in the left knee. She contacted her doctor as apparently she does not see him in person, they go through phone secondary to COVID precautions. She states that he would like her to have some basic blood work, but did not specify. She is able to weight-bear with the left knee, and the pain itself is almost totally resolved but still painful. She denies any recent fevers or chills, cough or cold type symptoms, shortness of breath, chest pain, abdominal pain, nausea or vomiting. She denies any history of trauma. Review of Systems Constitutional symptoms: No fever, no chills. Skin symptoms: No rash, no abrasions. Eye symptoms: No discharge, no diplopia, no blurred vision. Respiratory symptoms: No shortness of breath, Cardiovascular symptoms: No chest pain, Gastrointestinal symptoms: No abdominal pain, no nausea, no vomiting. Musculoskeletal symptoms: Negative except as documented in HPI. Health Status Allergies: Allergic Reactions (All) No Known Medication Allergies. Medications: (Selected) Documented Medications Documented atenolol 50 mg oral tablet: 50 mg, 1 tab(s), PO, Daily, 0 Refill(s) atorvastatin 40 mg oral tablet: 40 mg, 1 tab(s), PO, Daily, 0 Refill(s) hydroCHLOROthiazide-l isinopril 25 mg-20 mg oral tablet: 1 tab(s), PO, Daily, 0 Refill(s). Past Medical/ Family/ Social History Medical history: No active or resolved past medical history items have been selected or recorded.. Surgical history: No active procedure history items have been selected or recorded.. Family history: No family history items have been selected or recorded.. Social history: Social & Psychosocial Habits No Data Available . Problem list: No qualifying data available . Physical Examination Vital Signs Vital Signs 02/22/2020 11:55 EDT Temperature Oral 36.9 DegC Peripheral Pulse Rate 68 bpm Respiratory Rate 18 br/min Systolic Blood Pressure 173 mmHg HI Diastolic Blood Pressure 91 mmHg HI SpO2 98 % Oxygen Therapy Room air . General: Alert, no acute distress. Skin: Warm, dry. Head: Normocephalic, atraumatic. Neck: Supple, trachea midline. Eye: Extraocular movements are intact, normal conjunctiva. Ears, nose, mouth and throat: Oral mucosa moist. Cardiovascular: +S1, S2 Regular. Respiratory: Lungs are clear to auscultation, respirations are non-labored, breath sounds are equal. Gastrointestinal: Soft, Nontender, Non distended, Normal bowel sounds. Musculoskeletal: Patient's right foot is examined, both feet have dirt on the heels, and stained, with heavy calluses as if she goes barefoot. I do not see any breakdown of the skin that is obvious, or intertriginously, she has redness throughout the great toe, and the dorsum of the foot diffusely, she has 2+ pitting edema in the foot, the foot is warm and tender to the touch. She has a strong 2+ dorsalis pedis pulse. There is a little discomfort with palpation at the base of the fifth metatarsal and diffusely in the metatarsal themselves which may be secondary to edema. There is no pain in the right ankle, or the right knee. Patient's left knee is examined, there is no effusion, there is very minimal diffuse pain in the patella, but there is no difficulty with passive range of motion from 0-100+ degrees, no significant laxity of varus or valgus stressing. No pain in the palpation of the tibia. 2+ dorsalis pedis pulse on the left.. Neurological: Alert and oriented to person, place, time, and situation, No focal neurological deficit observed. Psychiatric: Cooperative. Medical Decision Making Differential Diagnosis: Foot sprain, foot fracture, toe pain, gout, degenerative joint disease, Cellulitis, knee sprain, patella fracture, Arthritis, osteo-, psoriatic, rheumatic. Orders Launch Orders Radiology: XR Knee Complete Left (Order): 02/22/2020 12:04 EDT Stat, fall, Allow Modification Per Radiologist, Transport Mode: Wheelchair, Patient fell 2 months ago, still has pain in the knee mostly in the patella, suspect osteoarthritis no effusion XR Fo (more content not included)... Normal [facility] ED Note-Nursingon 02-22-2020 ED Note-Nursing Patient reports righ t foot pain that started one week ago. Patient currently rates this pain 8/10 at rest and 10/10 with activity. Redness and swelling noted in the foot. Right foot is hot to the touch. Patient stated that she tried using the RICE method and has also been taking naproxen but these have not helped. Patient's PCP advised her to come to the ED. Normal [facility] ED Patient Summaryon 020 ED Patient Summary [facility] - Emergency Department [address] [place] [id number] PATIENT DISCHARGE INSTRUCTIONS Patient Information Name: ALYCE DAVID Age: 64 Years Date of : 1955 Reason For Visit: Foot pain; RIGHT FOOT SWELLING Arrival Time: 02/22/2020 11:49:30 Primary Care Physician: Aysha Clements MD Attending Physician: Emir Salazar MD Comment: Visit Diagnosis: Diagnoses This Visit Anemia (D64.9) Foot pain ([id number]) Gout of big toe (M10.9) Hyponatremia (E87.1) Sprain of knee (S83.90XA) Prescription Information: If you have been given a prescription for narcotics, seek immediate medical attention if you have any difficulty breathing or any sudden status changes such as confusion and sleepiness. If you or anyone you know is experiencing suicidal thoughts, mental health, alcohol and/or drug addiction problems; contact the Mental [facility] Recovery [facility] 10/02 Crisis Hotline -Text 4HGZM qv 323398. If you received any narcotics, sedation, or any other medication that causes drowsiness for the next 24 hours, unless otherwise directed: ? Do not drive a car. ? Do not operate machinery such as power tools, lawn mowers, drills, sewing machines, or stoves ? Avoid alcoholic beverages and drugs for allergies, nerves, or sleep ? Do not make important personal or business decisions or sign any legal documents With: Address: When: Aysha Clements [address] [place] [address] Business (1) Within 3 to 5 days Comments: Diagnosis is gout of the right great toe, left knee sprain, mild anemia or decreased blood count, low sodium, from history, you have had pain in the right great toe for a week, there was a concern for infection, versus gout, we obtained a laboratory work-up,youe did not have an elevated white count consistent with infection, but you did have a decreased blood count as we discussed. We also obtained a uric acid level that was elevated, which is elevated many times and gout. As discussed keep foot elevated above heart level when sedentary, may take ibuprofen, Aleve or other NSAIDs as discussed, may take Tylenol additionally, but do not take more than 4000 mg of Tylenol in a 24. We are providing you a prescription for pain medication, take this as prescribed, do not drink alcohol or operate machinery while taking this medication. May want to take stool softener to prevent constipation while taking pain medication. Do not take more than 4000 mg of Tylenol in a 24-hour period. Follow-up with your own primary care provider in the next 3 to 5 days for reevaluation, return to the emergency department for worsening symptoms or concerns. Prescription has been electronically sent to [facility] pharmacy. Medication Information: The exam and treatment you received today in the [facility] Emergency Department were for an urgent problem and are not intended as complete care. It is important for you to follow up with a doctor, nurse practitioner, or physician?s reference library assistant for ongoing care. If your symptoms become worse or you do not improve as expected and you are unable to reach your usual health care provider, you should return to the Emergency Department, we are available 24 hours a day. For those patients who have received Radiology results, the interpretation of your X-ray as given to you by our Emergency Department physician is only a preliminary report. The Radiologist will review your films and if there is a change in the diagnosis you will be notified by phone. Please make sure you have provided a working phone number so we can reach you if necessary. In the event that you had a lab culture while you were a patient in the Emergency Department, you will be notified by phone if there is a need to change your antibiotic. Please make sure you have provided a working phone number so we can reach you if necessary. [facility] Emergency Department has provided you with a complete list of medications post discharge. Please inform your public transit trolley driver/provider of your visit and for further instruction on these medications. Any specific questions regarding your chronic medications and dosages should be discussed with your primary care physician(s) and/or pharmacist. New Medications [facility] [facility], [address] [place], [place] [id number], [phone] acetaminophen-hydroco done ([place] 5 mg-325 mg oral tablet) 1 tab(s) Oral 3 times a day as needed for pain for 5 Days. Refills: 0. Medications to Continue That Have Not Changed Other Medications atenolol (atenolol 50 mg oral tablet) 1 tab(s) Oral every day. atorvastatin (atorvastatin 40 mg oral tablet) 1 tab(s) Oral every day. hydroCHLOROthiazide-l isinopril (hydroCHLOROthiazide- lisinopril 25 mg-20 mg oral tablet) 1 tab(s) Oral every day. Visit Information Allergies: Substance Reaction Symptoms Type Com (more content not included)... Normal [facility] Extra Greenon 02-22-2020 Tube Collected Yes Invalid Interpretation Code [facility] Comment on above: Performed By: #### 1 [id number], [id number], [id number], [id number], [id number], [id number], [id number] ####[facility] (DEFAULT)[address] [place] [address] Uric Acidon 02-22-2020 Urate [Mass/Vol] 9.4 mg/dL High 2.6-8.0 [facility] Comment on above: Performed By: #### 1 [id number], [id number], [id number], [id number], [id number], 0400975, [id number] ####[facility] (DEFAULT)[address] [place] [address]47 XR Foot Complete Righton XR Foot Complete Right EXAM: XR Knee Complete Left, XR Foot Complete Right. HISTORY: Fall, impact injury to left knee in June 2019, right foot pain and swelling for the past 9 days in the region of the great toe. COMPARISON: None. TECHNIQUE: 4 views of the left knee were obtained. FINDINGS: No definite acute fracture or dislocation. Mild lateral compartment narrowing with moderate spurring of the lateral tibial plateau. Minimal medial spurring. Calcification along the medial aspect of the medial femoral condyle superiorly most likely chronic, correlate for remote ligament injury. Mild osteopenia. No evidence of sizable suprapatellar joint effusion. No significant soft tissue swelling. 3 views of the right foot were obtained. FINDINGS: No definite acute fracture or dislocation. Moderate-size plantar calcaneal spur with tiny posterior calcaneal spur. Mild osteopenia. Mild degenerative changes about the interphalangeal joints with more moderate degenerative changes about the PIP joint of the little toe. Mild degenerative changes about the first metatarsophalangeal joint. Hammertoe deformities of the fourth and fifth toes. Calcification along the proximal, medial navicular compatible with ossification center. Spurring of the distal, lateral calcaneus. Mild generalized soft tissue swelling. IMPRESSION: Left knee study demonstrates degenerative changes as described. No convincing evidence of acute fracture or dislocation. Calcification along the medial aspect of the medial femoral condyle superiorly, correlate for remote ligamentous injury. Right foot study demonstrates degenerative changes as described. No definite acute fracture or dislocation. Follow up as needed. Final Dictated by: Omari Aguilar MD Dictated DT/TM: 02/22/20 12:38 Signed (Electronic Signature): Omari Aguilar MD 02/22/20 12:55 p Technologist: [facility] XR Knee Complete Lefton XR Knee Complete Left EXAM: XR Knee Complete Left, XR Foot Complete Right. HISTORY: Fall, impact injury to left knee in June 2019, right foot pain and swelling for the past 9 days in the region of the great toe. COMPARISON: None. TECHNIQUE: 4 views of the left knee were obtained. FINDINGS: No definite acute fracture or dislocation. Mild lateral compartment narrowing with moderate spurring of the lateral tibial plateau. Minimal medial spurring. Calcification along the medial aspect of the medial femoral condyle superiorly most likely chronic, correlate for remote ligament injury. Mild osteopenia. No evidence of sizable suprapatellar joint effusion. No significant soft tissue swelling. 3 views of the right foot were obtained. FINDINGS: No definite acute fracture or dislocation. Moderate-size plantar calcaneal spur with tiny posterior calcaneal spur. Mild osteopenia. Mild degenerative changes about the interphalangeal joints with more moderate degenerative changes about the PIP joint of the little toe. Mild degenerative changes about the first metatarsophalangeal joint. Hammertoe deformities of the fourth and fifth toes. Calcification along the proximal, medial navicular compatible with ossification center. Spurring of the distal, lateral calcaneus. Mild generalized soft tissue swelling. IMPRESSION: Left knee study demonstrates degenerative changes as described. No convincing evidence of acute fracture or dislocation. Calcification along the medial aspect of the medial femoral condyle superiorly, correlate for remote ligamentous injury. Right foot study demonstrates degenerative changes as described. No definite acute fracture or dislocation. Follow up as needed. Final Dictated by: Omari Aguilar MD Dictated DT/TM: 02/22/20 12:38 Signed (Electronic Signature): Omari Aguilar MD 02/22/20 12:55 p Technologist: [facility] Vital Signs Date Time Vital Sign Value Performing Clinician Facility 08-20-2023 13:55-0500 Body height 162.56 cm Liliana Willett Other [facility] Other 08-20-2023 13:55-0500 Body mass index (BMI) [Ratio] 30.52 kg/m2 Liliana Willett Other [facility] Other 08-20-2023 13:55-0500 Body temperature 99.1 [degF] Liliana Willett Other [facility] Other 08-20-2023 13:55-0500 Body weight 80.65 kg Liliana Willett Other [facility] Other 08-20-2023 13:55-0500 Diastolic blood pressure 86 mm[Hg] Liliana Willett Other [facility] Other 08-20-2023 13:55-0500 Respiratory rate 18 /min Liliana Willett Other [facility] Other 08-20-2023 13:55-0500 SaO2% (BldA) [Mass fraction] 97 % Liliana Callemond Other [facility] Other 08-20-2023 13:55-0500 Systolic blood pressure 156 mm[Hg] Liliana Willett Other [facility] Other 06-01-2022 13:17-0500 Diastolic blood pressure 76 mm[Hg] MD Aysha Clements Work Phone: [facility] 06-01-2022 13:17-0500 Heart rate 95 /min MD Aysha Clements Work Phone: [facility] 06-01-2022 13:17-0500 Respiratory rate 18 /min MD Aysha Clements Work Phone: [facility] 06-01-2022 13:17-0500 SaO2% (BldA) [Mass fraction] 94 % MD Aysha Clements Work Phone: [facility] 06-01-2022 13:17-0500 Systolic blood pressure 128 mm[Hg] MD Aysha Clements Work Phone: [facility] 06-01-2022 06:00-0500 Body temperature 97.2 [degF] MD Aysha Clements Work Phone: [facility] 06-01-2022 05:59-0500 Body height 160.02 cm MD Aysha Clements Work Phone: [facility] 06-01-2022 05:59-0500 Body weight 88.5 kg MD Aysha Clements Work Phone: [facility] 10-30-2021 10:47-0400 Body height 162 cm Carl Patel MD Work Phone: [facility] 10-30-2021 10:47-0400 Body temperature 98.6 [degF] Carl Patel MD Work Phone: [facility] 10-30-2021 10:47-0400 Diastolic blood pressure 67 mm[Hg] Carl Patel MD Work Phone: [facility] 10-30-2021 10:47-0400 Heart rate 90 /min Carl Patel MD Work Phone: [facility] 10-30-2021 10:47-0400 Respiratory rate 20 /min Carl Patel MD Work Phone: [facility] 10-30-2021 10:47-0400 SaO2% (BldA) [Mass fraction] 91 % Carl Patel MD Work Phone: [facility] 10-30-2021 10:47-0400 Systolic blood pressure 132 mm[Hg] Carl Patel MD Work Phone: [facility] 10-16-2021 10:58-0400 Body height 162 cm Carl Patel MD Work Phone: [facility] 10-16-2021 10:58-0400 Body temperature 97.7 [degF] Carl Patel MD Work Phone: [facility] 10-16-2021 10:58-0400 Body weight 77.11 kg Carl Patel MD Work Phone: [facility] 10-16-2021 10:58-0400 Diastolic blood pressure 67 mm[Hg] Carl Patel MD Work Phone: [facility] 10-16-2021 10:58-0400 Heart rate 116 /min Carl Patel MD Work Phone: [facility] 10-16-2021 10:58-0400 Respiratory rate 18 /min Carl Patel MD Work Phone: [facility] 10-16-2021 10:58-0400 SaO2% (BldA) [Mass fraction] 91 % Carl Patel MD Work Phone: [facility] 10-16-2021 10:58-0400 Systolic blood pressure 112 mm[Hg] Carl Patel MD Work Phone: [facility] Encounters Encounter Date Encounter Type Care Provider Facility Start: 08-20-2023 End: 08-20-2023 ambulatory Liliana Willett Other [facility] Other Start: 08-20-2023 Office outpatient vi sit 15 minutes Liliana Willett [facility] Start: 06-01-2022 End: 06-04-2022 Evaluation and management of inpatient Aysha Clements Facility:[facility] Start: 06-01-2022 Evaluation and management of inpatient MD Aysha Clements Work Phone: [facility] Start: 11-15-2021 End: 11-15-2021 Patient encounter procedure Dottie Cade [facility] Start: 10-30-2021 End: 10-30-2021 ambulatory Carl Patel MD Work Phone: Hematology/Oncology Comment on above: Normocytic anemia (P rimary Dx); Rash and nonspecific skin eruption; Leukocytosis, unspecified type Start: 10-30-2021 End: 10-30-2021 Patient encounter procedure Carl Patel MD Work Phone: [facility] Start: 10-16-2021 End: 10-16-2021 ambulatory Carl Patel MD Work Phone: Hematology/Oncology Comment on above: Normocytic anemia (P rimary Dx); Cough; Prolonged pt (prothrombin time) Start: 10-16-2021 End: 10-16-2021 Patient encounter procedure Carl Patel MD Work Phone: [facility] Start: 10-15-2021 Chart abstracting Carl diamond MD Work Phone: Hematology/Oncology Start: 10-09-2021 End: 10-09-2021 ambulatory Matthew Mittalm Facility:[facility] Start: 09-25-2021 End: 09-30-2021 Evaluation and management of inpatient Matthew Kyriem Facility:[facility] Procedures Date Procedure Procedure Detail Performing Clinician section Dottie Cade Colonoscopy Dottie Cade SARS Antigen (LFIA) MD Aysha Clements Work Phone: Plan of Treatment Date Care Activity Detail Author Start: 10-30-2024 DIABETES SCREEN DIABETES SCREEN [facility] Start: 10-16-2024 DIABETES SCREEN DIABETES SCREEN [facility] Start: 06-01-2022 Hospital admission [facility] Start: 06-01-2022 Vitamin D, 25-hydrox y measurement [facility] Start: 06-01-2022 [facility] Start: 03-21-2022 Influenza vaccination INFLUENZ A (Season Ended) [facility] Start: 10-30-2021 End: 12-30-2021 MYELOPROLIFERATIVE NEOPLASM PANEL BLOOD [facility] Work Phone: Comment on above: Expected: 10/30/2021 , Expires: 12/30/2021 Start: 10-30-2021 End: 12-30-2021 Nuclear Ab [Presence] in Serum by Immunoassay [facility] Work Phone: Comment on above: Expected: 10/30/2021 , Expires: 12/30/2021 Start: 10-16-2021 End: 12-16-2021 aPTT in Platelet poor plasma by Coagulation assay [facility] Work Phone: Comment on above: Expected: 10/16/2021 , Expires: 12/16/2021 Start: 10-16-2021 End: 12-16-2021 C reactive protein [Mass/volume] in Serum or Plasma [facility] Work Phone: Comment on above: Expected: 10/16/2021 , Expires: 12/16/2021 Start: 10-16-2021 End: 12-16-2021 Erythrocyte sedimentation rate [facility] Work Phone: Comment on above: Expected: 10/16/2021 , Expires: 12/16/2021 Start: 10-16-2021 End: 12-16-2021 FERRITIN BLD [facility] Work Phone: Comment on above: Expected: 10/16/2021 , Expires: 12/16/2021 Start: 10-16-2021 End: 12-16-2021 Haptoglobin [Mass/volume] in Serum or Plasma [facility] Work Phone: Comment on above: Expected: 10/16/2021 , Expires: 12/16/2021 Start: 10-16-2021 End: 12-16-2021 IRON + TIBC [facility] Work Phone: Comment on above: Expected: 10/16/2021 , Expires: 12/16/2021 Start: 10-16-2021 End: 12-16-2021 MONOCLONAL PROTEIN, SERUM (BLOOD) [facility] Work Phone: Comment on above: Expected: 10/16/2021 , Expires: 12/16/2021 Start: 10-16-2021 End: 12-16-2021 PT panel - Platelet poor plasma by Coagulation assay [facility] Work Phone: Comment on above: Expected: 10/16/2021 , Expires: 12/16/2021 Start: 10-16-2021 End: 12-16-2021 VITAMIN B12 BLOOD [facility] Work Phone: Comment on above: Expected: 10/16/2021 , Expires: 12/16/2021 Start: 07-21-2021 ADVANCE DIRECTIVE DISCUSSION ADVANCE DIRECTIVE DISCUSSION [facility] Start: 03-21-2021 Influenza vaccination INFLUENZA (#1) [facility] Start: 03-15-2021 COVID-19 VACCINE (3 - Booster for Moderna series) COVID-19 VACCINE (3 - Booster for Moderna series) [facility] Start: 2018 BONE DENSITY BONE DENSITY [facility] Start: 2018 PNEUMOVAX AGE 65 AND OVER WITH 5YR LOOKBACK (#1) PNEUMOVAX AGE 65 AND OVER WITH 5YR LOOKBACK (#1) [facility] Start: 09-23-2003 SHINGRIX VACCINE (1 of 2) [place] GRIX VACCINE (1 of 2) [facility] Start: 1998 COLOGUARD (FIT-DNA) COLOGUARD (FIT-D NA) [facility] Start: 1998 Colonoscopy COLONOSCOPY [facility] Start: 1998 COLORECTAL CANCER SCREENING CO LORECTAL CANCER SCREENING [facility] Start: [address] COLONOGRAPHY [facility] Start: 1998 DIABETES SCREEN DIABETES SCREEN [facility] Start: 1998 FECAL OCCULT BLOOD FECAL OCCULT BLOO D [facility] Start: 1998 LIPID SCREEN LIPID SCREEN [facility] Start: 1998 SIGMOIDOSCOPY SIGMOIDOSCOPY [facility] Start: 1993 Mammography MAMMOGRAM [facility] Start: 1972 Urine microalbumin profile DTA P,TDAP,TD (1 - Tdap) [facility] Start: 09-23-1971 HEPATITIS C SCREENING HEPATITIS C SC REENING [facility] Start: 1965 Adult depression [facility] DEPRESSION SCREENING [facility] Start: 1958 COVID-19 VACCINE (1) COVID-19 VACCIN E (1) [facility] Calculated LDL judith sterol level [facility] Work Phone: End: 10-30-2022 CBC W Auto Differential panel - Blood CBC + DIFF Lab Routine Normocytic anemia Once per month for 10 Occurrences starting 10/30/2021 until 10/30/2022 [facility] Work Phone: Comment on above: Once per month for 1 0 Occurrences starting 10/30/2021 until 10/30/2022 Cholesterol [Mass/vo lume] in Serum or Plasma [facility] Work Phone: Cholesterol in HDL [Mass/volume] in Serum or Plasma [facility] Work Phone: Cholesterol.total/Ch olester ol in HDL [Mass Ratio] in Serum or Plasma [facility] Work Phone: End: 10-30-2022 Comprehensive metabolic 2000 panel - Serum or Plasma COMP METABOLIC PANEL Lab Routine Normocytic anemia Once per month for 10 Occurrences starting 10/30/2021 until 10/30/2022, 1 completed [facility] Work Phone: Comment on above: Once per month for 1 0 Occurrences starting 10/30/2021 until 10/30/2022, 1 completed Thyrotropin [Units/v olume] in Serum or Plasma [facility] Work Phone: Triglyceride [Mass/v olume] in Serum or Plasma [facility] Work Phone: Vitamin D, 25-hydrox y measurement [facility] Work Phone: VLDL cholesterol measurement [facility] Work Phone: [facility] Immunizations Immunization Date Immunization Notes Care Provider [facility] 05-02-2020 Influenza, injectable, Madin Cleo Canine Kidney, preservative free, quadrivalent Carl Patel MD Work Phone: [facility] 05-29-2018 Influenza, injectable, Madin Cleo Canine Kidney, preservative free, quadrivalent Carl Patel MD Work Phone: [facility] 06-05-2016 influenza, seasonal, injectable Carl Patel MD Work Phone: [facility] 06-29-2015 influenza, seasonal, injectable, preservative free Carl Patel MD Work Phone: [facility] NEGATED: Highlighted row has not occurred!11-15-2021 SARS-CoV-2 (COVID-19) Ad26 vaccine, recombinant Dottie Cade [facility] Payers Date Payer Category Payer Unknown ANTHEM BLUE CROS S AND BLUE SHIELD ANTHEM MEDIBLUE O [id number] 2021-Present [phone] [address] [place] [address] [facility] [place] [id number] 2021 Medicare [id number] 2021 Medicare [id number] 2021 Self-pay [phone] [id number] Unknown [id number] Unknown [id number] Unknown [id number] Worker's Compensation [id number] Social History Date Type Detail Facility Start: 10-15-2021 End: 06-01-2022 Tobacco smoking status NHIS Ex-smoker [facility] History of tobacco use Cigarette Smoker C [facility] Start: 10-15-2021 Tobacco use and exposure Smokeless tobacco non-user [facility] Start: 10-15-2021 End: 10-30-2021 Alcohol intake Current drinker of alcohol (finding) [facility] Start: 1955 Sex Assigned At Not on file C [facility] Start: 10-06-2021 End: 10-30-2021 Exposure to SARS-CoV-2 (event) Not sure [facility] Sex Assigned At Female [facility] Start: 1955 Sex Assigned At Female F [facility] Clinical Notes 02-22-2020 to 08-20-2023 Note Date & Type Note Facility 08-20-2023 Evaluation note Encounter Date Diagnosis Assessment Notes Jul, Injury of great toe, right, sequela (ICD-10 - S99.921S) Drink plenty fluids, get plenty of rest. Continue home medications as prescribed. Take the cephalexin as prescribed until gone. Apply antibiotic ointment and a clean dressing daily. Soak your foot in warm soapy water or Epsom salt at least once a day. Call Dr. Vargas, wage adjuster in [place] for an appointment to be seen as soon as possible. Jul, Local infection of the skin and subcutaneous tissue, unspecified (ICD-10 - L08.9) [facility] Other 04-28-2022 Hospital Discharge instructions Patient Education 11/15/2021 11:52:56 Acute Urinary Retention, Female Acute Urinary Retention, Female Acute urinary retention is a condition in which a person is unable to pass urine. This can last fora short time or for a long time. If left untreated, it can result in kidney damage or other seriouscomplications. What are the causes? This condition may be caused by: Obstruction or narrowing of the tube that drains the bladder (urethra). This may be caused by surgery or problems with nearby organs, which can press or squeeze the urethra. Problems with the nerves in the bladder. These can be caused by diseases, such as multiple sclerosis, or by spinal cord injuries. Certain medicines. Tumors in the area of the pelvis, bladder, or urethra. Degenerative cognitive conditions such as delirium or dementia. Diabetes. Vaginal childbirth. Bladder or urinary tract infection. Constipation. Blood in the urine (hematuria). Injury to the bladder or urethra. Psychological (psychogenic) conditions. Someone may hold her urine due to trauma or because she does not want to use the bathroom. What are the signs or symptoms? Symptoms of this condition include: Trouble urinating. Pain in the lower abdomen. How is this diagnosed? This condition is diagnosed based on a physical exam and a medical history. You may also have othertests, including: An ultrasound of the bladder or kidneys or both. Blood tests. A urine analysis. Additional tests may be needed such as an MRI, kidney, or bladder function tests. How is this treated? Treatment for this condition may include: Medicines. Placing a thin, sterile tube (catheter) into the bladder to drain urine out of the body. This is called an indwelling urinary catheter. After being inserted, the catheter is held in place with a small balloon that is filled with sterile water. Urine drains from the catheter into a collection bag outside of the body. Behavioral therapy. Treatment for any underlying conditions. If needed, you may be treated in the hospital for kidney function problems or to manage other complications. Follow these instructions at home: Take [id number] and prescription medicines only as told by your health care provider. Avoid certain medicines, such as decongestants, antihistamines, and some prescription medicines. Do not take any medicine unless your health care provider has approved. If you were given an indwelling urinary catheter, take care of it as told by your health care provider. Drink enough fluid to keep your urine clear or pale yellow. If you were prescribed an antibiotic, take it as told by your health care provider. Do not stop taking the antibiotic even if you start to feel better. Do not use any products that contain nicotine or tobacco, such as cigarettes and e-cigarettes. If you need help quitting, ask your health care provider. Monitor any changes in your symptoms. Tell your health care provider about any changes. If instructed, monitor your blood pressure at home. Report changes as told by your health care provider. Keep all follow-up visits as told by your health care provider. This is important. Contact a health care provider if: You have uncomfortable bladder contractions that you cannot control (spasms) or you leak urine withthe spasms. Get help right away if: You have chills or fever. You have blood in your urine. You have a catheter and: ?Your catheter stops draining urine. ?Your catheter falls out. Summary Acute urinary retention is a condition in which a person is unable to pass urine. If left untreated, it can result in kidney damage or other serious complications. This condition may be caused by surgery or problems with nearby organs, which can press or squeeze the urethra. Treatment may include medicines and placement of an indwelling urinary catheter. Monitor any changes in your symptoms. Tell your health care provider about any changes. This information is not intended to replace advice given to you by your health care provider. Make sure you discuss any questions you have with your health care provider. Document Released: 07/06/2007 Document Revised: 06/19/2018 Document Reviewed: 08/08/2017 scroll kit Patient Education 2020 [employer]. Follow Up Care 10/18/2021 08:56:34 With:Rayo CIFUENTES, LOYDA Aparicio, URO Address: When: only if needed [facility] [place] 04-12-2022 NoteHNO ID: [id number] Author: Carl Patel MD Service: ? Author Type: Physician Type: Progress Notes Filed: 10/30/2021 11:29 AM Note Text: HEMATOLOGY FOLLOW UP Elements in this clinic note that are critical to medical decision making have been carefully reviewed and included from my prior clinic note dated: October 16, 2021 October 30, 2021 PCP and other physicians involved in patient's care: Aysha Clements (PCP), Emanuel Clark (neurology), Dottie Cade (urology), Justin Gonzalez (GI) DIAGNOSIS: Anemia of chronic disease HEMATOLOGICAL HISTORY: ? She was prescribed oral iron thrice a week in 2019- for anemia. I do not have iron values from that time. EGD and colonoscopy in March 2020 was notable for chronic gastritis. H. pylori was negative. Recommendation was to follow up in 10 years. No previous transfusion history. ? Referred to me in September 2021 for hemoglobin ranging from 9?10 g/dL [place] [facility] [place] (presented with proximal muscle weakness, urinary retention and inability to walk). Her serum iron was noted to be low at 28 and she received 3 doses of intravenous iron. Other notable labs include iron saturation 9%, TIBC 300, ferritin 669 (pre-infusions), CRP 4.1 and ESR 45. Neurology work-up pending. CT abdomen showed fatty liver. Stool without occult blood ? October 16, 2021 CBC shows hemoglobin 9.9 g/dL with MCV 95; reticulocyte production index 1.5, low; haptoglobin 276, CRP 1.5, ESR 55, ferritin 1150, B12 604, iron 48, TIBC 310, saturation 15%; no M protein INTERVAL HISTORY: Alyce comes for follow-up. She continues to struggle with her neurologic issues. She also has a rash on the upper extremities that is itching. She has not seen a [employer] [facility]. She is here to follow-up with a neurologist. She comes back to discuss her lab results. ROS is negative except that mentioned in HPI PAST MEDICAL SURGICAL FAMILY AND SOCIAL HISTORY: She has a history of ?Hypertension ?Hyperlipidemia ?Undiagnosed ?myopathy ?Chronic anemia without improvement on oral iron, likely related to underlying neuromuscular disorder She has a 25 pack year smoking history and quit in 2012. Family history significant for lung cancer in her sister and most of her siblings are from cancer. She lives alone in [place], [place] but now has her son for help. MEDICATIONS AND ALLERGIES: Reviewed PHYSICAL EXAM BP 132/67 Pulse 90 Temp 37 ?C (98.6 ?F) (Temporal) Resp 20 Ht 162 cm (5' 3.78 ) SpO2 91% BMI 29.38 kg/m? Using a walker to ambulate, power 4/5 in hip girdle, multiple skin eruptions with secondary excoriations, tachycardia but no wheezing on lung exam, abdomen soft LABORATORY, IMAGING AND PATHOLOGY CBC shows hemoglobin 9.9 g/dL with MCV 95 Normal WBC and platelets Reticulocyte production index 1.5, low Haptoglobin 276, CRP 1.5, ESR 55 Ferritin 1150, B12 604, iron 48, TIBC 310, saturation 15% No M protein ASSESSMENT AND RECOMMENDATIONS 58 female with normocytic anemia Based on the lab work at last visit, patient likely has anemia of chronic inflammation. Her inflammatory markers are elevated. She is awaiting additional neurological work-up for myopathy or dermatomyositis (elevated myoglobin, normal CK and aldolase, skin eruptions). Treating the underlying disorder will likely result in improvement of anemia. I have encouraged her to follow-up with her neurologist to complete the work-up. Referral to [facility] for inflammatory skin rash. XR chest was notable for mild diffuse interstitial infiltrates. Cough is improving. If it worsens, will consider CT chest in the future. Follow-up in 4 weeks with repeat labs. Carl Patle MD I spent a total of 25 minutes on the date of the service which included preparing to see the patient, [id number] patient care, completing clinical documentation, obtaining and/or reviewing separately obtained history, performing a medically appropriate examination, counseling and educating the patient/family/caregiver, ordering medications, tests, or procedures, independently interpreting results (not separately reported) and communicating results to the patient/family/caregiver.[facility]04-12-2022 Miscellaneous Notes* Addendum Note - Carl Patel MD - 10/30/2021 12:21 PM EDT Addended by: CARL PATEL on: 10/30/2021 12:21 PM Modules accepted: Orders documented in [facility] Nurse Note* Maricarmen Kebede MA - 10/30/2021 11:02 AM EDT Patient was recently in the [facility] due to Anemia. Maricarmen Gomez MA documented in this encounter[facility] History of Present illness Narrative* Carl Patel MD - 10/30/2021 10:30 AM EDT HEMATOLOGY FOLLOW UP Elements in this clinic note that are critical to medical decision making have been carefully reviewed and included from my prior clinic note dated: October 16, 2021 October 30, 2021 PCP and other physicians involved in patient's care: Aysha Clements (PCP), Emanuel Clark (neurology), Dottie Cade (urology), Justin Gonzalez (GI) DIAGNOSIS: Anemia of chronic disease HEMATOLOGICAL HISTORY: She was prescribed oral iron thrice a week in 2019- for anemia. I do not have iron values from that time. EGD and colonoscopy in March 2020 was notable for chronic gastritis. H. pylori was negative. Recommendation was to follow up in 10 years. No previous transfusion history. Referred to me in September 2021 for hemoglobin ranging from 9 10 g/dL [place] [facility] [place] (presented with proximal muscle weakness, urinary retention and inability to walk). Her serum ironwas noted to be low at 28 and she received 3 doses of intravenous iron. Other notable labs include iron saturation 9%, TIBC 300, ferritin 669 (pre-infusions), CRP 4.1 and ESR 45. Neurology work- up pending. CT abdomen showed fatty liver. Stool without occult blood October 16, 2021 CBC shows hemoglobin 9.9 g/dL with MCV 95; reticulocyte production index 1.5, low; haptoglobin 276, CRP 1.5, ESR 55, ferritin 1150, B12 604, iron 48, TIBC 310, saturation 15%; no M protein INTERVAL HISTORY: Alyce comes for follow-up. She continues to struggle with her neurologic issues. She also has a rash on the upper extremities that is itching. She has not seen a [facility]. She is here to follow-up with a neurologist. She comes back to discuss her lab results. ROS is negative except that mentioned in HPI PAST MEDICAL SURGICAL FAMILY AND SOCIAL HISTORY: She has a history of Hypertension Hyperlipidemia Undiagnosed ?myopathy Chronic anemia without improvement on oral iron, likely related to underlying neuromuscular disorder She has a 25 pack year smoking history and quit in 2012. Family history significant for lung cancerin her sister and most of her siblings are from cancer. She lives alone in [place], [place] but now has her son for help. MEDICATIONS AND ALLERGIES: Reviewed PHYSICAL EXAM BP 132/67 Pulse 90 Temp 37 C (98.6 F) (Temporal) Resp 20 Ht 162 cm (5' 3.78 ) SpO2 91% BMI 29.38 kg/m Using a walker to ambulate, power 4/5 in hip girdle, multiple skin eruptions with secondary excoriations, tachycardia but no wheezing on lung exam, abdomen soft LABORATORY, IMAGING AND PATHOLOGY CBC shows hemoglobin 9.9 g/dL with MCV 95 Normal WBC and platelets Reticulocyte production index 1.5, low Haptoglobin 276, CRP 1.5, ESR 55 Ferritin 1150, B12 604, iron 48, TIBC 310, saturation 15% No M protein ASSESSMENT AND RECOMMENDATIONS 58 female with normocytic anemia Based on the lab work at last visit, patient likely has anemia of chronic inflammation. Her inflammatory markers are elevated. She is awaiting additional neurological work-up for myopathy or dermatomyositis (elevated myoglobin, normal CK and aldolase, skin eruptions). Treating the underlying disorder will likely result in improvement of anemia. I have encouraged her to follow-up with her neurologist to complete the work-up. Referral to [facility] for inflammatory skin rash. XR chest was notable for mild diffuse interstitial infiltrates. Cough is improving. If it worsens, will consider CT chest in the future. Follow-up in 4 weeks with repeat labs. Carl Patel MD I spent a total of 25 minutes on the date of the service which included preparing to see the patient, [id number] patient care, completing clinical documentation, obtaining and/or reviewing separately obtained history, performing a medically appropriate examination, counseling and educating the pat ient/family/caregiver, ordering medications, tests, or procedures, independently interpreting results (not separately reported) and communicating results to the patient/family/caregiver. documented in this encounter[facility]22 NoteHNO ID: [id number] Author: RT Brian(R) Service: ? Author Type: Technologist Type: Progress Notes Filed: 10/16/2021 12:02 PM Note Text: Radiology Service Progress Note PATIENT NAME: Alyce David DATE OF SERVICE: October 16, 2021 TIME: 12:02 PM PATIENT IDENTITY VERIFICATION COMPLETED USING TWO (2) IDENTIFIERS: Name and Date of confirmed by patient verbally. FALL SCREENING: Has the patient had 2 falls in the last year or 1 fall with injury or currently using an Ambulatory Assistive Device (Walker, Cane, Wheelchair, Crutches, etc.)? No PATIENT GENDER DATA: Female. status: : No status: NO. PATIENT RELEVANT IMPLANT DATA REVIEWED: Not Applicable RADIOLOGY DEPARTMENT: General X-ray: Exam(s) Completed: Chest X-Ray PERIPHERAL IV DATA: Not applicable SIGNED BY: RT Brian(R) October 16, 2021 12:02 [facility]03-29-2022 NoteHNO ID: [id number] Author: Carl Patel MD Service: ? Author Type: Physician Type: Progress Notes Filed: 10/16/2021 12:53 PM Note Text: Pt HEMATOLOGY INITIAL CONSULTATION October 16, 2021 REFERRAL REQUESTED BY: Aysha Clements PCP and other physicians involved in patient's care: Aysha Clements (PCP), Emanuel Clark (neurology), Dottie Cade (urology), Justin Gonzalez (GI) REASON FOR CONSULTATION: Anemia HEMATOLOGICAL HISTORY: She was prescribed oral iron thrice a week in for anemia. I do not have iron values from that time. EGD and colonoscopy in March 2020 was notable for chronic gastritis. H. pylori was negative. Recommendation was to follow up in 10 years. No previous transfusion history. HPI: This is a 66-year-old female comes to clinic for evaluation of anemia. Briefly, she presented [place] [facility] [place] with proximal muscle weakness and inability to walk over 2-3 weeks along with urinary retention. She also describes multiple rashes over the body during this time. In the hospital, she was evaluated by neurology and urology. She was recommended a Serrano catheter placement that was to be continued 2-3 weeks post discharge. MRI spine was without any acute pathology. Creatinine kinase and aldolase levels are normal, however myoglobin levels were elevated. The plan is for her to have nerve conduction and EMG as an outpatient. She was also noted to be hypokalemic and hypomagnesemic for which she is on replacements. During her hospitalization, her oral iron worse switch from twice a week to once daily. After discharge, she was advised to switch it back to twice a week. During her hospitalization, her serum iron was noted to be low at 28 and she received 3 doses of intravenous iron. Other notable labs include iron saturation 9%, TIBC 300, ferritin 669, CRP 4.1 and ESR 45. CBC was notable for hemoglobin ranging from 9?10 g/dL with an MCV of 95. EGD in March 2020 was notable for chronic gastritis. H. pylori was negative. On review today, patient endorses cough for the last 2 weeks. No fevers or chills. She is short of breath and weak however, continues to work with physical therapy. She needs support with her hands to get up from a sitting to standing position. This is a new symptom that she did not have before. She has an appoint with neurology pending. She has a Serrano in place and plans to follow-up with urology soon. Other symptoms endorsed on review include intermittent headaches, palpitations and fatigue. She is not able to tell me the timeline of the symptoms as she ignore them for a long time . She is here with her son, PATTI. ROS is negative except that mentioned in HPI PAST MEDICAL SURGICAL FAMILY AND SOCIAL HISTORY: She has a history of ?Hypertension ?Hyperlipidemia ?Undiagnosed ?myopathy ?Chronic anemia without improvement on oral iron She has a 25 pack year smoking history and quit in 2012. Family history significant for lung cancer in her sister and most of her siblings are from cancer. She lives alone in [place], [place] but now has her son for help. MEDICATIONS AND ALLERGIES: Reviewed PHYSICAL EXAM BP 112/67 Pulse 116 Temp 36.5 ?C (97.7 ?F) (Temporal) Resp 18 Ht 162 cm (5' 3.78 ) Wt 77.1 kg (170 lb) SpO2 91% BMI 29.38 kg/m? Using a walker to ambulate, power 4/5 in hip girdle, multiple skin eruptions, tachycardia but no wheezing on lung exam, abdomen soft LABORATORY, IMAGING AND PATHOLOGY CBC shows hemoglobin 9.9 g/dL with MCV 95 Normal WBC and platelets Reticulocyte production index 1.5, low CMP normal Other work-up pending ASSESSMENT AND RECOMMENDATIONS 58 female with normocytic anemia I discussed the multiple differentials associated with anemia. WBC and platelets are normal. Patient has had EGD in the past showing chronic gastritis but on current evaluation stool is without occult blood. There is no GI or bleeding reported. She has been on oral iron for the last 1 year without improvement in hemoglobin, even though ferritin while she was inpatient was elevated. Her inflammatory markers are elevated. My main differential is anemia of chronic disease secondary to underlying inflammatory disorder. She is awaiting additional neurological work-up for myopathy or dermatomyositis (elevated myoglobin, normal CK and aldolase, skin eruptions). I will recheck her iron profile, inflammatory markers today and rule out paraproteinemia. Hold off on bone marrow biopsy for now. PT and PTT during hospitalization were elevated. Recheck today. She has a cough for the last 2 weeks. Check x-ray chest. Follow-up in 2 weeks to discuss results and next steps. Carl Patel MD I spent a total of 65 minutes on the date of the service which included preparing to see the patient, [id number] patient care, completing clinical documentation, obtaining and/or reviewing separately obtained history, performing a medically anisha (more content not included)...[facility]03-29-2022 History of Present illness Narrative* Carl Patel MD - 10/16/2021 11:00 AM EDT Pt HEMATOLOGY INITIAL CONSULTATION October 16, 2021 REFERRAL REQUESTED BY: Aysha Clements PCP and other physicians involved in patient's care: Aysha Clements (PCP), Emanuel Clark (neurology), Dottie Cade (urology), Justin Gonzalez (GI) REASON FOR CONSULTATION: Anemia HEMATOLOGICAL HISTORY: She was prescribed oral iron thrice a week in for anemia. I do not have iron values from that time. EGD and colonoscopy in March 2020 was notable for chronic gastritis. H. pylori was negative. Recommendation was to follow up in 10 years. No previous transfusion history. HPI: This is a 66-year-old female comes to clinic for evaluation of anemia. Briefly, she presented [place] [facility] with proximal muscle weakness and inability to walk over 2-3 weeks along with urinary retention. She also describes multiple rashes over the body during this time. In the hospital, she was evaluated by neurology and urology. She was recommended a Serrano catheter placement that was to be continued 2-3 weeks post discharge. MRI spine was without any acute pathology.Creatinine kinase and aldolase levels are normal, however myoglobin levels were elevated. The plan is for her to have nerve conduction and EMG as an outpatient. She was also noted to be hypokalemic and hypomagnesemic for which she is on replacements. During her hospitalization, her oral iron worse switch from twice a week to once daily. After discharge, she was advised to switch it back to twice a week. During her hospitalization, her serum iron was noted to be low at 28 and she received 3 doses of intravenous iron. Other notable labs include iron saturation 9%, TIBC 300, ferritin 669, CRP 4.1 and ESR 45. CBC was notable for hemoglobin ranging from 9 10 g/dL with an MCV of 95. EGD in March 2020 was notable for chronic gastritis. H. pylori was negative. On review today, patient endorses cough for the last 2 weeks. No fevers or chills. She is short of breath and weak however, continues to work with physical therapy. She needs support with her hands to get up from a sitting to standing position. This is a new symptom that she did not have before. She has an appoint with neurology pending. She has a Serrano in place and plans to follow-up with urology soon. Other symptoms endorsed on review include intermittent headaches, palpitations and fatigue. She is not able to tell me the timeline of the symptoms as she ignore them for a long time . She ishere with her son, PATTI. ROS is negative except that mentioned in HPI PAST MEDICAL SURGICAL FAMILY AND SOCIAL HISTORY: She has a history of Hypertension Hyperlipidemia Undiagnosed ?myopathy Chronic anemia without improvement on oral iron She has a 25 pack year smoking history and quit in 2012. Family history significant for lung cancerin her sister and most of her siblings are from cancer. She lives alone in [place], [place] but now has her son for help. MEDICATIONS AND ALLERGIES: Reviewed PHYSICAL EXAM BP 112/67 Pulse 116 Temp 36.5 C (97.7 F) (Temporal) Resp 18 Ht 162 cm (5' 3.78 ) Wt 77.1 kg (170 lb) SpO2 91% BMI 29.38 kg/m Using a walker to ambulate, power 4/5 in hip girdle, multiple skin eruptions, tachycardia but no wheezing on lung exam, abdomen soft LABORATORY, IMAGING AND PATHOLOGY CBC shows hemoglobin 9.9 g/dL with MCV 95 Normal WBC and platelets Reticulocyte production index 1.5, low CMP normal Other work-up pending ASSESSMENT AND RECOMMENDATIONS 58 female with normocytic anemia I discussed the multiple differentials associated with anemia. WBC and platelets are normal. Patient has had EGD in the past showing chronic gastritis but on current evaluation stool is without occult blood. There is no GI or bleeding reported. She has been on oral iron for the last 1 year without improvement in hemoglobin, even though ferritin while she was inpatient was elevated. Her inflammatory markers are elevated. My main differential is anemia of chronic disease secondary to underlying inflammatory disorder. She is awaiting additional neurological work-up for myopathy or dermatomyositis (elevated myoglobin, normal CK and aldolase, skin eruptions). I will recheck her iron profile, inflammatory markers today and rule out paraproteinemia. Hold off on bone marrow biopsy for now. PT and PTT during hospitalization were elevated. Recheck today. She has a cough for the last 2 weeks. Check x-ray chest. Follow-up in 2 weeks to discuss results and next steps. Carl Patel MD I spent a total of 65 minutes on the date of the service which included preparing to see the patient, [id number] patient care, completing clinical documentation, obtaining and/or reviewing separately obtained history, performing a medically appropriate examination, counseling and educating the pat ient/family/caregiver, ordering medications, tests, or procedures, independently interpreting results (not separately reported) and communicating results to the patient/family/caregiver. documented in this encounterSelect [facility]03-[facility] Note [id number]:127[facility] 10-01-2021 [id number]:127[facility]08-04-2020 NoteEducation Materials Hematology Hyponatremia Hyponatremia is when the amount of salt (sodium) in your blood is too low. When sodium levels are low, your cells absorb extra water and they swell. The swelling happens throughout the body, but it mostly affects the brain. What are the causes? This condition may be caused by: ? Heart, kidney, or liver problems. ? Thyroid problems. ? Adrenal gland problems. ? Metabolic conditions, such as syndrome of inappropriate antidiuretic hormone (SIADH). ? Severe vomiting and diarrhea. ? Certain medicines or illegal drugs. ? Dehydration. ? Drinking too much water. ? Eating a diet that is low in sodium. ? Large short on your body. ? Sweating. What increases the risk? This condition is more likely to develop in people who: ? Have long-term (chronic) kidney disease. ? Have heart failure. ? Have a medical condition that causes frequent or excessive diarrhea. ? Have metabolic conditions, such as [place] disease or SIADH. ? Take certain medicines that affect the sodium and fluid balance in the blood. Some of these medicine types include: ? Diuretics. ? NSAIDs. ? Some opioid pain medicines. ? Some antidepressants. ? Some seizure prevention medicines. What are the signs or symptoms? Symptoms of this condition include: ? Nausea and vomiting. ? Confusion. ? Lethargy. ? Agitation. ? Headache. ? Seizures. ? Unconsciousness. ? Appetite loss. ? Muscle weakness and cramping. ? Feeling weak or light-headed. ? Having a rapid heart rate. ? Fainting, in severe cases. How is this diagnosed? This condition is diagnosed with a medical history and physical exam. You will also have other tests, including: ? Blood tests. ? Urine tests. How is this treated? Treatment for this condition depends on the cause. Treatment may include: ? Fluids given through an IV tube that is inserted into one of your veins. ? Medicines to correct the sodium imbalance. If medicines are causing the condition, the medicines will need to be adjusted. ? Limiting water or fluid intake to get the correct sodium balance. Follow these instructions at home: ? Take medicines only as directed by your health care provider. Many medicines can make this condition worse. Talk with your health care provider about any medicines that you are currently taking. ? Carefully follow a recommended diet as directed by your health care provider. ? Carefully follow instructions from your health care provider about fluid restrictions. ? Keep all follow-up visits as directed by your health care provider. This is important. ? Do not drink alcohol. Contact a health care provider if: ? You develop worsening nausea, fatigue, headache, confusion, or weakness. ? Your symptoms go away and then return. ? You have problems following the recommended diet. Get help right away if: ? You have a seizure. ? You faint. ? You have ongoing diarrhea or vomiting. This information is not intended to replace advice given to you by your health care provider. Make sure you discuss any questions you have with your health care provider. Document Released: 06/27/2003 Document Revised: 12/12/2016 Document Reviewed: 07/27/2015 scroll kit Interactive Patient Education ? 2019 [employer]. Orthopedics Knee Sprain, Adult A knee sprain is a stretch or tear in a knee ligament. Knee ligaments are bands of tissue that connect bones in the knee to each other. What are the causes? This condition often results from: ? A fall. ? An injury to the knee. What are the signs or symptoms? Symptoms of this condition include: ? Trouble bending the leg. ? Swelling in the knee. ? Bruising around the knee. ? Tenderness or pain in the knee. ? Muscle spasms around the knee. How is this diagnosed? This condition may be diagnosed based on: ? A physical exam. ? What happened just before you started to have symptoms. ? Tests, including: ? An X-ray. This may be done to make sure no bones are broken. ? An MRI. This may be done to check if the ligament is torn. ? Stress testing of the knee. This may be done to check ligament damage. How is this treated? Treatment for this condition may involve: ? Keeping the knee still (immobilized) with a cast, brace, or splint. ? Applying ice to the knee. This helps with pain and swelling. ? Keeping the knee raised (elevated) above the level of your heart when you are resting. This helpswith pain and swelling. ? Taking medicine for pain. ? Exercises to prevent or limit permanent weakness or stiffness in your knee. ? Surgery to reconnect the ligament to the bone or to reconstruct it. This may be needed if the ligament tore all the way. Follow these instructions at home: If you have a splint or brace: ? Wear the splint or brace as told by your health care provider. Remove it only as told by your health care provider. ? Loosen the splint or b (more content not included)...[facility] Evaluation + Plan note No data available for this section [facility] Evaluation note* Diagnosis Normocytic anemia- Primary Anemia, unspecified Cough Prolonged pt (prothrombin time) Abnormal coagulation profile documented in this encounter [facility]* Diagnosis Normocytic anemia- Primary Anemia, unspecified Rash and nonspecific skin eruption Rash and other nonspecific skin eruption Leukocytosis, unspecified type documented in this encounter [facility]* Diagnosis Onset Date Resolution Status Depression acute [facility] Work Phone: History general Narrative - Reported* Type Description Date Medical History hypertension Medical History hypercholesterolemia Medical History anemia [employer] Other Summary Purpose Family History Relationship Condition Age at Onset Recorded Date/T robinson Not Specified No pertinent family history Unknown Advance Directives Advance Directive Response Recorded Date/ Time Advance Directives No March 13, 2020 2:41pm Reason for Referral Specialty Diagnoses / Procedures Referred By Contac t Referred To Contact Dermatology Diagnoses Normocytic anemia Rash and nonspecific skin eruption Procedures CONSULT TO DERMATOLOGY OFFICE/OUTPATIENT [facility] 60-74 MINUTES Carl Patel MD [address] [place] [address] [place] [address] Referral ID Status Reason Start Date Expiration Date Visits Requested Visits Authorized [id number] Pending Review PCP Requested Referral 10/30/2021 10/30/2022 1 1 Chief Complaint and Reason for Visit Chief Complaint [facility] Reason for Visit Depression Additional Source Comments INFORMATION SOURCE (unrecogn ized section and content) DATE CREATED AUTHOR 11/07/2020 [facility] DATE CREATED AUTHOR AUTHOR'S ORGANIZ ATION 11/11/2021 [facility] DATE CREATED AUTHOR AUTHOR'S ORGANIZ ATION 11/18/2021 [facility] [facility] DATE CREATED AUTHOR AUTHOR'S ORGANIZ ATION 08/29/2022 [facility] Source Comments (unrecognize d section and content) In the event this informatio n is protected by the Federal Confidentiality of Alcohol and Drug Abuse Patient Records regulations: The Federal rules restrict any use of the information to criminally investigate or prosecute any alcohol or drug abuse patient.[facility], IncIn the event this information is protected by the Federal Confidentiality of Alcohol and Drug Abuse Patient Records regulations: The Federal rules restrict any use of the information to criminally investigate or prosecute any alcohol or drug abuse patient.[facility], IncIn the event this information is protected by the Federal Confidentiality of Alcohol and Drug Abuse Patient Records regulations: The Federal rules restrict any use of the information to criminally investigate or prosecute any alcohol or drug abuse patient.[facility] Reason for Visit (unrecogniz ed section and content) foot pain Reason Comments Anemia New patient consult Reason Comments Anemia 2 week follow up Care Teams (unrecognized sec tion and content) Team Status: Active Member Role Status Dates Aysha Clements MD Primary Care Provider Active Remy Motley DO Emergency Provider Active Tye Subramanian MD Admit Provider, Attending Provider Active Team Status: Active Member Role Status Dates Aysha Clements MD Primary Care Provider Active Goals (unrecognized section and content) Goals may be documented in a n alternate section FOR RECORDS PERTAINING TO PATIENTS WHO ARE OR HAVE BEEN ENROLLED IN A CHEMICAL DEPENDENCY/SUBSTANCEABUSE PROGRAM, SOME INFORMATION MAY BE OMITTED. This clinical summary was aggregated from multiple sources. Caution should be exercised in using it in the provision of clinical care. This summary normalizes information from multiple sources, and as a consequence, information in this document may materially change the coding, format and clinical context of patient data. In addition, data may be omitted in some cases. CLINICAL DECISIONS SHOULD BE BASED ON THE PRIMARY CLINICAL RECORDS. [facility]. provides no warranty or guarantee of the accuracy or completeness of information in this document.
--- NOTE | 2023-08-31 23:12 | ED_ITS ---
HPI - Abdominal Pain General Chief Complaint: Nausea/Vomiting/Diarrhea Stated Complaint: ABDOMINAL PAIN/VOMITING Time Seen by Provider: 08/31/23 22:59 Source: patient Mode of arrival: ambulance History of Present Illness HPI narrative: patient drinking alcohol tonight. Called Squad because of abdominal pain. Arrives here and states she is no longer experiencing pain. Admits she has been drinking. she does not want any testing. States why if I'm no longer having pain. Refusing lab testing Related Data Previous Rx's Medication Instructions Recorded cephalexin 500 mg capsule 500 mg PO QID 10 days #40 caps 07/13/23 Allergies Allergy/AdvReac Type Severity Reaction Status Date / Time No Known Drug Allergies Allergy Verified 07/13/23 10:35 Review of Systems ROS Status of ROS 10 or more systems reviewed and unremark able except as noted in history and below PFSH [facility] Social History Smoking status: Never smoker Exam Constitutional Vital Signs, click to edit/add: Last Vital Signs Temp 98.6 F 08/31/23 22:57 Pulse 71 08/31/23 22:57 Resp 16 08/31/23 22:57 BP 132/74 08/31/23 22:57 Pulse Ox 96 08/31/23 22:57 O2 Del Method Room Air 08/31/23 22:57 Common normals: no apparent distress, oriented x3, no limitations and alert Eye Common normals: EOMs intact bilaterally and conjunctivae normal Respiratory Common normals: normal respiratory effort, no retractions, no use of accessory muscles and clear to auscultation bilaterally Cardio Common normals: regular rate, regular rhythm, S1 normal heart sound and S2 normal heart sound GI Common normals: Normal to inspection, nondistended, normoactive bowel sounds present, soft to palpation and non-tender Extremity Common normals: normal to inspection and full ROM Neuro Common normals: oriented x3, CN's II-XII intact bilaterally, moves all extremities and no focal motor deficits Psych Appearance: grossly normal Course Vital Signs Vital signs: Vital Signs Temperature 98.6 F 08/31/23 22:57 Pulse Rate 71 08/31/23 22:57 Respiratory Rate 16 08/31/23 22:57 Blood Pressure 132/74 08/31/23 22:57 Pulse Oximetry 96 08/31/23 22:57 Oxygen Delivery Method Room Air 02/11/24 22:57 Temperature 98.6 F 08/31/23 22:57 Pulse Rate 71 08/31/23 22:57 Respiratory Rate 16 08/31/23 22:57 Blood Pressure 132/74 08/31/23 22:57 Pulse Oximetry 96 08/31/23 22:57 Oxygen Delivery Method Room Air 08/31/23 22:57 MDM - Abdominal Pain MDM Narrative Medical decision making narrative: patient presents intoxicated and admits she has been drinking. States she called squad because she was sick at home. Now that she is here she feels well and regrets coming. She does not want any testing but she also does not have a ride home. patient observed in the department for 30 minutes and is not changing her mind. She just wants to go back home nursing will try to arrange for a way for her to get home Discharge Plan Discharge Chief Complaint: Nausea/Vomiting/Diarrhea Clinical Impression: Alcohol intoxication Patient Disposition: Home, Self-Care Prescriptions / Home Meds: No Action cephalexin 500 mg capsule 500 mg PO QID 10 Days Qty: 40 0RF Instructions: Alcohol Intoxication (ED) Stand Alone Forms: Portal Instructions Referrals: Physician,Non-Staff, MD [Primary Care Provider] - 1 week Discharge Date/Time: 09/01/23 00:03
== END 2023-09-01 00:03 | disposition home or self-care (01) ==
PROVIDERS: Emergency Provider Internal Medicine
DX: F10.129 Alcohol abuse with intoxication, unspecified (principal)
CPT/HCPCS: 99283

== ENCOUNTER 2023-11-24 08:17 | Emergency (ER) | payer MEDICARE, SELFPAY ==
[2023-11-24] VITALS (7 sets, daily range): BP systolic 103–139; BP diastolic 52–72; PULSE 69–98; TEMP 36.5–37; O2SAT 88–97; BMI 29.3
--- NOTE | 2023-11-24 08:28 | ECG_ITS ---
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
--- NOTE | 2023-11-24 08:37 | XR_ITS ---
The [address] [address] Patient Name: ALYCE DAVID MRN: [id number] date: 1955 Sex: F Assigned Patient Location: ER Current Patient Location: ER Accession/Order Number: [id number] Exam Date: 11/24/2023 08:47 Report Date: 11/24/2023 09:06 At the request of: KELSEA SOSA Procedure: XR foot RT min 3V EXAM: XR foot RT min 3V HISTORY: Hallux injury COMPARISON: Right foot study dated 07/13/2023 TECHNIQUE: 3 views of the right foot were obtained. FINDINGS: No definite acute fracture or dislocation. Bswu-ow-kylwxlul degenerative change about the interphalangeal joints. Mild degenerative change about the first metatarsophalangeal joint. Qzaw-mc-tmsolusf degenerative change about the first metatarsal tarsal joint. Ofbt-bu-uletpbro degenerative changes about the intertarsal region. Small to moderate plantar calcaneal spur with tiny posterior calcaneal spur. There may be old fracture deformity of the distal fourth metatarsal, correlate with history. Mild soft tissue swelling of the great toe. No obvious soft tissue air. XR/XR foot RT min 3V IMPRESSION: Right foot study fails to demonstrate definite acute fracture or dislocation. Degenerative changes as noted. Soft tissue swelling as described. Follow-up as needed. Electronically authenticated by: SAMAN BAGLEY Date: 11/24/2023 09:06
[2023-11-24 08:43] LABS: Basophils Absolute Auto 0.1 10^3/uL (0.0-0.1); Basophils Percent Auto 1.1 % (0.2-2.0); Eosinophils Absolute Auto 0.2 10^3/uL (0.0-0.7); Eosinophils Percent Auto 2.8 % (0.9-7.0); Hematocrit 26.3 % (36.0-48.0); Hemoglobin 7.9 g/dL (12.0-16.0); Immature Granulocytes Abs Auto 0.04 10^3/uL (0.00-0.03); Immature Granulocytes Pct Auto 0.5 % (0.0-0.5); Lymphocytes Percent Auto 26.7 % (20.5-60.0); Mean Corpuscular Hemoglobin 26.9 pg (26.7-34.0); Mean Corpuscular Volume 89.5 fL (81.0-99.0); Mean Platelet Volume 10.7 fL (9.5-13.5); Monocytes Absolute Auto 0.9 10^3/uL (0.3-0.8); Monocytes Percent Auto 12.4 % (1.7-12.0); Neutrophils Absolute Auto 4.3 10^3/uL (1.4-6.5); Neutrophils Percent Auto 56.5 % (43.0-75.0); Platelet Count 122 10^3/uL (150-450); Red Blood Count 2.94 10^6/uL (4.20-5.40); Red Cell Distribution Width 16.8 % (11.0-15.0); White Blood Count 7.6 10^3/uL (4.0-11.0)
[2023-11-24] MEDS: 0.9 % SODIUM CHLORIDE 1,000 ML 1000 ML IV (08:44)
[2023-11-24 08:53] LABS: Ethanol 296 mg/dL
[2023-11-24 08:56] LABS: Anion Gap 14.8; BUN Creatinine Ratio 25.8; Calcium 8.5 mg/dL (8.5-10.1); Carbon Dioxide 23.3 mmol/L (21.0-32.0); Chloride 99 mmol/L (98-107); Estimated GFR (African America >60 (>=60); Estimated GFR (Non-African Ame >60 (>=60); Glucose 113 mg/dL (74-106); Potassium 3.1 mmol/L (3.5-5.1); Sodium 134 mmol/L (136-145)
[2023-11-24 08:57] LABS: Acetaminophen <10.0 ug/mL (10.0-30.0); Salicylate <3.0 mg/dL (<=19.9)
[2023-11-24] MEDS: BACITRACIN 0.9 GM PACKET 1 PACKET TOPICAL (10:35)
[2023-11-24 10:41] LABS: Amphetamine Screen Urine NEGATIVE (NEGATIVE); Barbiturates Screen Urine NEGATIVE (NEGATIVE); Benzodiazepines Screen Urine NEGATIVE (NEGATIVE); Buprenorphine Screen Urine NEGATIVE (NEGATIVE); Cannabinoid Screen Urine NEGATIVE (NEGATIVE); Cocaine Screen Urine NEGATIVE (NEGATIVE); Methadone Screen Urine NEGATIVE (NEGATIVE); Methamphetamines Screen Urine NEGATIVE (NEGATIVE); Opiate Screen Urine NEGATIVE (NEGATIVE); Oxycodone Screen Urine NEGATIVE (NEGATIVE); Phencyclidine Screen Urine NEGATIVE (NEGATIVE); Tricyclic Antidepressant Urine NEGATIVE (NEGATIVE)
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
[2023-11-25 00:49] VITALS: BP 162/82; PULSE 99; O2SAT 95
[2023-11-25 05:00] VITALS: BP 136/96; PULSE 88; O2SAT 96
[2023-11-25 06:32] VITALS: BP 150/88; PULSE 88; O2SAT 95
[2023-11-25 07:31] VITALS: BP 143/68; PULSE 91; TEMP 36.8; O2SAT 94
[2023-11-25 08:16] LABS: Ethanol <3 mg/dL
[2023-11-25] MEDS: POTASSIUM BICARBONATE/CIT 25 MEQ TABLET EFF PO (09:00)
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
== END 2023-11-25 11:59 | disposition home or self-care (01) ==
PROVIDERS: Emergency Medicine; Emergency Provider Internal Medicine
DX: L03.115 Cellulitis of right lower limb (principal); E87.6 Hypokalemia; F10.129 Alcohol abuse with intoxication, unspecified; Y90.8 Blood alcohol level of 240 mg/100 ml or more
CPT/HCPCS: 36415; 73630; 80048; 80179; 80307; 80320; 80329; 85025; 93005; 99285

== ENCOUNTER 2023-12-07 13:52 | Emergency (ER) | payer MEDICARE, SELFPAY ==
[2023-12-07] VITALS (8 sets, daily range): BP systolic 145–186; BP diastolic 65–98; PULSE 84–85; TEMP 37.5; O2SAT 97–98; BMI 29.8
--- NOTE | 2023-12-07 14:01 | ECG_ITS ---
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
--- OUTSIDE RECORDS SUMMARY | 2023-12-07 14:01 | XMS_ITS | CCD ---
Author Organization [facility] Care Team Providers Care Meal Cooker Name Role Phone Unavailable Primary Care Provider AYSHA Mckeon Primary Care Physician [phone] MD Aysha Clements Primary Care Provider DO Remy Motley Emergency Provider MD Tye Subramanian Admit Provider [phone] MD Tye Subramanian Attending Provider [phone] Aysha Clements Primary Care Unavailable Tye Subramanian Admitting Unavailable Tye Subramanian Attending Unavailable Matthew Laird Attending Aysha Yip Primary Care Unavailable Matthew Laird Admitting UnavailMatthew Rodriguez Attending Aysha Yip Primary Care Unavailable Emanuel Clark Consulting Unavailable Kirstie Scott Admitting Unavailable Dottie Cade Consulting Unavailable Liliana Willett Unavailable Allergies Allergy Classification Reported Allergen(s) Allergy Type Date of Onset Reaction(s) Facility (2 sources) amLODIPine; Translations: [amlodipine] Drug Allergy unknown [facility] (1 source) amLODIPine Drug Allergy 06-01-2022 [facility] Repository Medications Current Medications Medication Drug Class(es) Dates Sig (Normalized) Sig (Original) acetaminophen 325 mg oral tablet (4 sources) Start: 09-29-2021 take 650 mg by mouth every six hours Acetaminophen Active 650 MG PO Every 6 hours 0 September 29, 2021 12:00am take 2 tablets by mo uth every six hours as needed acetaminophen (TYLENOL) [...] 2020 11:00pm take 1 tablet by neo once daily allopurinol (ZYLOPRIM) 100 mg tablet [...] q12hr, # 2 tab(s), Refills(s) 0, Pharmacy: [address], 160, cm, 10/18/21 8:22:00 EDT, Height/Length [...] tablet (3 sources) HMG-CoA Reductase Inhibitor Start: take 1 mg by mouth once daily atorvastatin 40 mg Tab mg tab(s), Oral, Daily, Refills(s) 0 Start Date: 09/28/21 Status: Ordered cephalexin 500 mg oral capsule (1 source) Cephalosporin Antibacterial Start: 024 take 1 capsule by mouth every eight hours Cephalexin 500 MG 1 capsule Orally tid for 10 day(s) Jul, Active cholecalciferol 0.01 mg oral tablet (1 source) Vitamin D Start: take 1 tablet by mouth twice daily at mealtime Cholecalciferol (Vitamin D3) (Vitamin D3) 10 mcg (400 unit) Tablet Active 20 MCG PO Twice daily with meals 120 30 September 29, 2021 12:00am doxepin hydrochloride 10 [...] for 20 Active take 1 capsule by [facility] every eight hours as needed hydrOXYzine [...] on above: take 1 capsule by mo [facility] twice a day for 7 [...] 2022 7:15am take 1 tablet by neo th three times daily hydrALAZINE (APRESOLINE) 25 mg [...] - FINGER STICKon Glucose [Mass/Vol] 133 mg/dL [employer] Other Albumin [Mass/volume] in Ser um or PlasmaOrdered By: Remy Motley on 06-01-2022 Albumin [Mass/Vol] 3.8 g/dL 3.2-5.5 [facility] Amphetamine Screen Ql (U)Ord ered By: Remy Motley on 06-01-2022 Amphetamines Ql (U) Negative Negative [facility] Automated erythrocytes count in urine sediment (number/area)Ordered By: Remy Motley on 06-01-2022 RBC Auto (Urine sed) [#/Area] 0-1 [HPF] 0-4 [facility] Automated leukocytes count i n urine sediment (number/area)Ordered By: Remy Motley on 06-01-2022 WBC Auto (Urine sed) [#/Area] 3-4 [HPF] 0-4 [facility] Barbiturates [Presence] in U rineOrdered By: Remy Motley on 06-01-2022 Barbiturates Ql (U) Negative Negative [facility] Basophils Auto (Bld) [#/Vol] Ordered By: Remy Motley on 06-01-2022 Basophils (Bld) [#/Vol] 0.1 10*3/uL 0.0-0.2 [facility] Basophils/100 WBC Auto (Bld) Ordered By: Remy Aquinozi on 06-01-2022 Basophils/100 WBC (Bld) 1.2 % . F [facility] Benzodiazepines [Presence] i n UrineOrdered By: Remy Aquinozi on 06-01-2022 Benzodiazepines Ql (U) Negative Negative Fi [facility] Bilirubin Test strip Ql (U)O rdered By: Remy Motley on 06-01-2022 Bilirubin Ql (U) Negative Negative [facility] COVID-19 Antigenon 2 COVID-19 Antigen Healthcare [...] developed and its performance characteristic determined by [employer] and validated at [facility]. This test has not been FDA cleared [...] for SARS Antigen by MY PERFORMED BY: [facility] [address] [place] [address] PATHOLOGIST WHEEL ALIGNMENT TECHNICIAN IDANIA WHITESIDE M.D. Normal [facility] Comment on above: Performed By: #### T SH3 wRFLX, T4F, LIPID, [id number] #### [facility] [address] COVID-19 SOFIAOrdered By: Coleman Motley on 06-01-2022 SARS-CoV+SARS-CoV-2 (COVID-19) Ag IA.rapid Ql (Resp) Negative Negative [facility] Comment on above: This is a duplicate Kate SARS Antigen (MY) result to be used for statistical tracking purpose only. Cannabinoids [Presence] in U rine by Screen methodOrdered By: Remy Motley on 06-01-2022 Cannabinoids Screen Ql (U) Negative Negative [facility] Comment on above: These are unconfirme d results and should not be used for legal purposes. Drug Cut-Off Concentration: AMPH 1000 ng/mL NENITA 200 ng/mL SWETA 200 ng/mL COCM 300 ng/mL OP 300 ng/mL PCP 25 ng/mL THC 20 ng/mL Color Auto (U)Ordered By: Coleman Motley on 06-01-2022 Color (U) Yellow Yellow [facility] Complete Blood Count Auto Di ffon 06-01-2022 Basophils (Bld) [#/Vol] 0.1 10*3/uL Normal 0.0-0.2 [facility] Comment on above: Result Comment: PERF ORMED BY: [place] [address] PATHOLOGIST WHEEL ALIGNMENT TECHNICIAN IDANIA WHITESIDE M.D. Performed By: #### C OVID 19 [facility] #### [facility] [address] [place] [address] [place] Basophils/100 WBC (Bld) 1.2 % Normal . F [facility] Comment on above: Performed By: #### C OVID 19 [facility] #### [facility] [address] [place] [address] [place] Eosinophils (Bld) [#/Vol] 0.2 10*3/uL Normal 0.0-0.45 [facility] Comment on above: Performed By: #### C [address] #### [facility] [address] [place] [id number] [place] Eosinophils/100 WBC (Bld) 3.3 % Normal . [facility] Comment on above: Performed By: #### C [address] #### [facility] [address] [place] [id number] [facility] Erythrocyte distribution width (RBC) [Ratio] 13.5 % Normal 11.9-15.3 [facility] Comment on above: Performed By: #### C [address] #### [facility] [address] Hematocrit (Bld) [Volume fraction] 38.3 % Normal 34.0-46.4 [facility] Comment on above: Performed By: #### C [address] #### [facility] [address] Hemoglobin (Bld) [Mass/Vol] 12.8 g/dL Normal 11.8-15.4 [facility] Comment on above: Performed By: #### C [address] #### [facility] [address] [place] [address] [place] Lymphocytes (Bld) [#/Vol] 1.7 10*3/uL Normal 1.00-4.8 [facility] Comment on above: Performed By: #### C [address] #### [facility] [address] [place] [id number] [place] Lymphocytes/100 WBC (Bld) 32.3 % Normal . [facility] Comment on above: Performed By: #### C [address] #### [facility] [address] [place] [id number] [place] MCH (RBC) [Entitic mass] 32.8 pg Normal 24.7-34.3 [facility] Comment on above: Performed By: #### C [address] #### [facility] [address] [place] [id number] [facility] MCV (RBC) [Entitic vol] 98.2 fL Normal 80-100 F [facility] Comment on above: Performed By: #### C OVID 19 [facility] #### [facility] [address] [place] [address] [place] Mean Corpuscular HGB Conc 33.4 g/dL Normal 32.0-35.0 [facility] Comment on above: Performed By: #### C POTRERO 19 [facility] #### [facility] [address] [place] [address] [place] Monocytes (Bld) [#/Vol] 0.5 10*3/uL Normal 0.0-0.8 [facility] Comment on above: Performed By: #### C OVID 19 [facility] #### [facility] [address] [place] [address] [place] Monocytes/100 WBC (Bld) 9.6 % Normal . F [facility] Comment on above: Performed By: #### C [address] #### [facility] [address] [place] [address] [place] Neutrophils (Bld) [#/Vol] 2.9 10*3/uL Normal 1.8-7.7 [facility] Comment on above: Performed By: #### C [address] #### [facility] [address] [place] [address] [place] Neutrophils/100 WBC (Bld) 53.6 % Normal . [facility] Comment on above: Performed By: #### C POTRERO 19 [facility] #### [facility] [address] [place] [address] [place] Nucleated RBC/100 WBC (Bld) [Ratio] 0.1 % Normal 0-0.5 [facility] Comment on above: Performed By: #### C OVID [address] [place] [address] #### [facility] [address] [place] [address] [place] Platelet mean volume (Bld) [Entitic vol] 7.6 fL Normal 6.3-10.7 [facility] Comment on above: Performed By: #### C OVID 19 [facility] #### [facility] [address] [place] [address] [place] Platelets (Bld) [#/Vol] 179 10*3/uL Normal 150-450 [facility] Comment on above: Performed By: #### C OVID 19 [facility] #### [facility] [address] RBC (Bld) [#/Vol] 3.90 10*6/uL Normal 3.60-5.00 [facility] Comment on above: Performed By: #### C [address] #### [facility] [address] WBC (Bld) [#/Vol] 5.4 10*3/uL Normal 4.5-11.0 [facility] Comment on above: Performed By: #### C [address] #### [address] Comprehensive Metabolic Pane huber 06-01-2022 Albumin [Mass/Vol] 3.8 g/dL Normal 3.2-5.5 [facility] Comment on above: Performed By: #### C [address] #### [address] Albumin/Globulin [Mass ratio] 1.1 {ratio} Normal [facility] Comment on above: Performed By: #### C [address] #### [address] ALP [Catalytic activity/Vol] 98 U/L High 32-92 [facility] Comment on above: Performed By: #### C [address] #### [facility] [address] [place] [address] ALT [Catalytic activity/Vol] 54 U/L Normal 10-60 [facility] Comment on above: Performed By: #### C [address] #### [address] Anion gap [Moles/Vol] 12.4 mmol/L Normal 6.0-15.[address] [facility] Comment on above: Performed By: #### C [address] #### [address] AST [Catalytic activity/Vol] 100 U/L High 10-42 [facility] Comment on above: Performed By: #### C OVID 19 [facility] #### [facility] [address] [place] [id number] [place] Bilirubin [Mass/Vol] 0.6 mg/dL Normal 0.3-1.2 [facility] Comment on above: Performed By: #### C POTRERO 19 [facility] #### [facility] [address] [place] [id number] [place] Calcium [Mass/Vol] 8.6 mg/dL Normal 8.2-10.2 [facility] Comment on above: Performed By: #### C POTRERO 19 [facility] #### [facility] [address] [place] [address] [place] Chloride [Moles/Vol] 100 mmol/L Normal 95-114 [facility] Comment on above: Performed By: #### C POTRERO 19 [facility] #### [facility] [address] [place] [address] [place] CO2 [Moles/Vol] 23.8 mmol/L Normal 22.0-30.0 [facility] Comment on above: Performed By: #### C [address] #### [facility] [address] [place] [id number] [place] Creatinine [Mass/Vol] 0.70 mg/dL Normal 0.44-1.03 [facility] Comment on above: Performed By: #### C POTRERO 19 [facility] #### [facility] [address] [place] [address] [place] Creatinine Clr Calc Pharmacy 71.02 [facility] Comment on above: Result Comment: PERF ORMED BY: [facility] [address] [place] [address] PATHOLOGIST WHEEL ALIGNMENT TECHNICIAN IDANIA WHITESIDE M.D. Performed By: #### C POTRERO 19 [facility] #### [facility] [address] [place] [address] [place] Estimated GFR ( Radha > 60 [facility] Comment on above: Result Comment: GFR estimated reference range: According to KDOQI guidelines, <60 ml/min/1.73m2 is sufficient to diagnose a patient with chronic kidney disease. Performed By: #### C POTRERO 19 [facility] #### [facility] [address] Estimated GFR (Non- Am > [address] [facility] Comment on above: Performed By: #### C [address] #### [facility] [address] Globulin (S) [Mass/Vol] 3.4 g/dL Normal F [facility] Comment on above: Performed By: #### C [address] #### [address] Glucose [Mass/Vol] 138 mg/dL High 70-100 [facility] Comment on above: Result Comment: [facility] Glucose Reference Range is dependent on time and content of last meal. Glucose of more than 200 mg/dL in a nonstressed, ambulatory subject supports the diagnosis of Diabetes Mellitus. ADA recommended reference range Performed By: #### C [address] #### [address] Potassium [Moles/Vol] 4.2 mmol/L Normal 3.5-5.1 [facility] Comment on above: Performed By: #### C [address] #### [address] Protein [Mass/Vol] 7.2 g/dL Normal 6.1-7.9 [facility] Comment on above: Performed By: #### C [address] #### [address] Sodium [Moles/Vol] 132 mmol/L Low 136-146 [facility] Comment on above: Performed By: #### C [address] #### [address] Urea nitrogen [Mass/Vol] 22 mg/dL Normal 9-23 [facility] Comment on above: Performed By: #### C [address] #### [address] Creatinine and Glomerular fi ltration rate.predicted panel (S/P/Bld)Ordered By: Remy Motley on 06-01-2022 Creatinine [Mass/Vol] 0.70 mg/dL 0.44-1.03 [facility] Dipstick and Microscopicon 1 08-01-2021 Appearance (U) Clear Normal Clear [facility] Comment on above: Order Comment: Comme nt use ed blood Comment us ed blood Performed By: #### T SH3 wRFLX, T4F, LIPID, [id number] #### [facility] [address] Bacteria,Urine None Seen Normal None Seen [facility] Comment on above: Order Comment: Comme nt use ed blood Comment us ed blood Performed By: #### T SH3 wRFLX, T4F, LIPID, [id number] #### [facility] [address] Bilirubin,Urine Negative Normal Negative [facility] Comment on above: Order Comment: Comme nt use ed blood Comment us ed blood Performed By: #### T SH3 wRFLX, T4F, LIPID, [id number] #### [facility] [address] [place] [address] [place] Color (U) Yellow Normal Yellow [facility] Comment on above: Order Comment: Comme nt use ed blood Comment us ed blood Performed By: #### T SH3 wRFLX, T4F, LIPID, [id number] #### [facility] [address] [place] [id number] [place] Glucose Ql (U) Normal Normal Normal [facility] Comment on above: Order Comment: Comme nt use ed blood Comment us ed blood Performed By: #### T SH3 wRFLX, T4F, LIPID, [id number] #### [facility] [address] [place] [address] [place] Hyaline Casts,Urine 0-8 Normal 0-8 [facility] Comment on above: Order Comment: Comme nt use ed blood Comment us ed blood Result Comment: PERF ORMED BY: [facility] [address] [facility] [place] [address] PATHOLOGIST WHEEL ALIGNMENT TECHNICIAN IDANIA WHITESIDE M.D. Performed By: #### T SH3 wRFLX, T4F, LIPID, [id number] #### [facility] [address] Ketones Ql (U) Negative Normal Negative [facility] Comment on above: Order Comment: Comme nt use ed blood Comment us ed blood Performed By: #### T SH3 wRFLX, T4F, LIPID, [id number] #### [facility] [address] Leukocyte esterase Test strip Ql (U) 3+ High Negative [facility] Comment on above: Order Comment: Comme nt use ed blood Comment us ed blood Performed By: #### T SH3 wRFLX, T4F, LIPID, [id number] #### [facility] [address] Nitrite,Urine Negative Normal Negative [facility] Comment on above: Order Comment: Comme nt use ed blood Comment us ed blood Performed By: #### T SH3 wRFLX, T4F, LIPID, [id number] #### [facility] [address] Occult Blood,Urine Negative Normal Negative [facility] Comment on above: Order Comment: Comme nt use ed blood Comment us ed blood Result Comment: PERF ORMED BY: [place] [address] PATHOLOGIST WHEEL ALIGNMENT TECHNICIAN IDANIA WHITESIDE M.D. Performed By: #### T SH3 wRFLX, T4F, LIPID, [id number] #### [facility] [address] [place] [address] [place] pH (U) 6.5 [pH] Normal 5.0-9.0 [facility] Comment on above: Order Comment: Comme nt use ed blood Comment us ed blood Performed By: #### T SH3 wRFLX, T4F, LIPID, [id number] #### [facility] [address] Protein,Urine Negative Normal Negative [facility] Comment on above: Order Comment: Comme nt use ed blood Comment us ed blood Performed By: #### T SH3 wRFLX, T4F, LIPID, [id number] #### [facility] [address] RBC LM.HPF (Urine sed) [#/Area] 0 /[HPF] Normal 0-4 [facility] Comment on above: Order Comment: Comme nt use ed blood Comment us ed blood Performed By: #### T SH3 wRFLX, T4F, LIPID, [id number] #### [facility] [address] Specificy [place],Urine 1.005 Normal 1.001-1.030 [facility] Comment on above: Order Comment: Comme nt use ed blood Comment us ed blood Performed By: #### T SH3 wRFLX, T4F, LIPID, [id number] #### [facility] [address] Squamous Epithelial Cell,Urine 0-1 Normal 0-2 [facility] Comment on above: Order Comment: Comme nt use ed blood Comment us ed blood Performed By: #### T SH3 wRFLX, T4F, LIPID, [id number] #### [facility] [address] Urobilinogen,Urine Normal Normal Normal [facility] Comment on above: Order Comment: Comme nt use ed blood Comment us ed blood Performed By: #### T SH3 wRFLX, T4F, LIPID, [id number] #### [facility] [address] [place] [address] [place] WBC,Urine 3-4 Normal 0-4 [facility] Comment on above: Order Comment: Comme nt use ed blood Comment us ed blood Performed By: #### T SH3 wRFLX, T4F, LIPID, [id number] #### [facility] [address] [place] [address] [place] Drug Screen,Urineon 11-20 22 Amphetamine Screen,Urine Negative Normal Negative [facility] Comment on above: Performed By: #### T SH3 wRFLX, T4F, LIPID, [id number] #### [facility] [address] [place] [address] [place] Barbiturate Screen,Urine Negative Normal Negative [facility] Comment on above: Performed By: #### T SH3 wRFLX, T4F, LIPID, [id number] #### [place] [address] [place] Benzodiazepines Screen,Urine Negative Normal Negative [facility] Comment on above: Performed By: #### T SH3 wRFLX, T4F, LIPID, [id number] #### [address] Cannabinoid Screen,Urine Negative Normal Negative [facility] Comment on above: Result Comment: Thes e are unconfirmed results and should not be used for legal purposes. Drug Cut-Off Concentration: AMPH 1000 ng/mL NENITA 200 ng/mL SWETA 200 ng/mL COCM 300 ng/mL OP 300 ng/mL PCP 25 ng/mL THC 20 ng/mL PERFORMED BY: [place] [address] PATHOLOGIST WHEEL ALIGNMENT TECHNICIAN IDANIA WHITESIDE M.D. Performed By: #### T SH3 wRFLX, T4F, LIPID, [id number] #### [place] [address] [place] Cocaine Screen,Urine Negative Normal Negative [facility] Comment on above: Performed By: #### T SH3 wRFLX, T4F, LIPID, [id number] #### [place] [address] [place] Opiate Screen,Urine Negative Normal Negative [facility] Comment on above: Performed By: #### T SH3 wRFLX, T4F, LIPID, [id number] #### [facility] [address] [place] [address] [place] Phencyclidine Screen,Urine Negative Normal Negative [facility] Comment on above: Performed By: #### T SH3 wRFLX, T4F, LIPID, [id number] #### [place] [address] [place] ECG 12 lead ECGon 06-01-2022 ECG 12 lead ECG [facility] Main [place] [address] [place] [address] Electrocardiograph Report Signed Patient: Alyce David MR#: [id number] : 1955 Acct:[id number] Age/Sex: 66 / F ADM Date: 06/01/22 Loc: Room: [address] [place] [address] Type: DIS IN Attending Dr: Tye Subramanian [...] is now present Confirmed by CAIT CIFUENTES [facility] ([id number]) on 06/02/2022 4:04:05 PM Referred By: Electronically Signed By:SHARLENE FUENTES MD [facility] Transcribed By: MUS Signed By Ivan Fuentes MD 06/02/[address] [facility] Eosinophils Auto (Bld) [#/Vo l]Ordered By: Remy Motley on 06-01-2022 Eosinophils (Bld) [#/Vol] 0.2 10*3/uL 0.0-0.45 [facility] Eosinophils/100 WBC Auto (Bl d)Ordered By: Remy Motley on 06-01-2022 Eosinophils/100 WBC (Bld) 3.3 % . [facility] Erythrocyte distribution wid th Auto (RBC) [Ratio]Ordered By: Remy Motley on 06-01-2022 Erythrocyte distribution width (RBC) [Ratio] 13.5 % 11.9-15.3 [facility] Estimated glomerular filtrat ion rate (GFR) non- AmericanOrdered By: Remy Motley on 06-01-2022 GFR/1.73 sq M.predicted among non-blacks MDRD (S/P/Bld) [Vol rate/Area] > 60 mL/Min [facility] Ethyl Alcohol Profileon 05-21 Ethanol [Mass/Vol] 268 mg/dL Normal [facility] Comment on above: Performed By: #### C OVID 19 [facility] #### [facility] [address] [place] [address] Percent Ethanol 0.268 % Normal [facility] Comment on above: Result Comment: PERF ORMED BY: [place] [address] PATHOLOGIST WHEEL ALIGNMENT TECHNICIAN IDANIA WHITESIDE M.D. Performed By: #### C OVID 19 [facility] #### [facility] [address] [place] [address] Free T4 (Free Thyroxine)on 08-01-2021 Free T4 [Mass/Vol] 0.71 ng/dL Normal 0.61-1.12 [facility] Comment on above: Order Comment: Comme nt use ed blood Comment ed blood Performed By: #### T SH3 wRFLX, T4F, LIPID, [id number] #### [facility] [address] [place] [address] Globulin Calc (S) [Mass/Vol] Ordered By: Remy Motley on 06-01-2022 Globulin (S) [Mass/Vol] 3.4 g/dL F [facility] HCG ( test) IA.rapi d Ql (U)Ordered By: Remy Motley on 06-01-2022 HCG ( test) Ql (U) Negative [facility] HCG,Urineon 06-01-2022 Beta HCG ( test) Ql (U) Negative Normal [facility] Comment on above: Result Comment: PERF ORMED BY: [place] [address] PATHOLOGIST WHEEL ALIGNMENT TECHNICIAN IDANIA WHITESIDE M.D. Performed By: #### C K, ESR, BMP, CRP #### [facility] [address] [place] [address] #### MYOG, ALDOLASE #### [facility] , Hematocrit Auto (Bld) [Volum e fraction]Ordered By: Remy Motley on 06-01-2022 Hematocrit (Bld) [Volume fraction] 38.3 % 34.0-46.4 [facility] Hemoglobin [Mass/volume] in BloodOrdered By: Remy Motley on 06-01-2022 Hemoglobin (Bld) [Mass/Vol] 12.8 g/dL 11.8-15.4 [facility] Ketones Auto test strip (U) [Mass/Vol]Ordered By: Remy Motley on 06-01-2022 Ketones (U) [Mass/Vol] Negative Negative [facility] - Drug toxicology Ordered By: Remy Motley on 06-01-2022 Opiates Ql (U) Negative Negative [facility] Laboratory - Hematology and Cell countsOrdered By: Remy Motley on 06-01-2022 Nucleated RBC/100 WBC (Bld) [Ratio] 0.1 % 0-0.5 [facility] Laboratory - UrinalysisOrder ed By: Remy Motley on 06-01-2022 Hyaline casts LM Ql (Urine sed) 0-8 [LPF] 0-8 [facility] Leukocytes [#/volume] in Blo od by Automated countOrdered By: Remy Motley on 06-01-2022 WBC (Bld) [#/Vol] 5.4 10*3/uL 4.5-11.0 [facility] Lipid Panelon 06-01-2022 Cholesterol [Mass/Vol] 188 mg/dL Normal 140-[address] [facility] Comment on above: Order Comment: Comme nt use ed blood Comment us ed blood Result Comment: Chol less than 200 mg/dl low risk Chol 201-239 mg/dl borderline risk Chol 240 mg/dl and greater high risk Performed By: #### T SH3 wRFLX, T4F, LIPID, [id number] #### [facility] [address] [place] [address] Cholesterol in HDL [Mass/Vol] 38 mg/dL Normal 35-85 [facility] Comment on above: Order Comment: Comme nt use ed blood Comment us ed blood Result Comment: HDL CHOL ATP-III CLASSIFICATION Cardiovascular Risk HDL > or equal to 60 mg/dL LOW HDL < 40 mg/dL HIGH Performed By: #### T SH3 wRFLX, T4F, LIPID, [id number] #### [facility] [address] Cholesterol.total/Judith sterol in HDL [Mass ratio] 4.9 {ratio} Normal <5.0 [facility] Comment on above: Order Comment: Comme nt use ed blood Comment us ed blood Performed By: #### T SH3 wRFLX, T4F, LIPID, [id number] #### [facility] [address] LDL Cholesterol,Calculated 83 mg/dL Normal 0-100 [facility] Comment on above: Order Comment: Comme nt use ed blood Comment us ed blood Result Comment: LDL ATP III CLASSIFICATION LDL less than 100 mg/dL Optimal LDL 100-129 mg/dL Near or above optimal LDL 130-159 mg/dL Borderline high LDL 160-189 mg/dL High LDL greater than 189 mg/dL Very high Performed By: #### T SH3 wRFLX, T4F, LIPID, [id number] #### [facility] [address] Triglyceride w/Reflex 335 mg/dL High 35-149 [facility] Comment on above: Order Comment: Comme nt use ed blood Comment us ed blood Result Comment: TRIG ATP III CLASSIFICATION TRIG less than 150 mg/dL Normal TRIG 150-199 mg/dL Borderline high TRIG 200-500 mg/dL High TRIG greater than 500 mg/dL Very high Standard traceable to the Center for Disease Conrtrol and Prevention (CDC) test method. Performed By: #### T SH3 wRFLX, T4F, LIPID, [id number] #### [facility] [address] VLDL CHOLESTEROL 67 mg/dL Normal [facility] Comment on above: Order Comment: Comme nt use ed blood Comment us ed blood Performed By: #### T SH3 wRFLX, T4F, LIPID, [id number] #### [facility] [address] Lymphocytes Auto (Bld) [#/Vo l]Ordered By: Remy Motley on 06-01-2022 Lymphocytes (Bld) [#/Vol] 1.7 10*3/uL 1.00-4.8 [facility] Lymphocytes/100 WBC Auto (Bl d)Ordered By: Remy Motley on 06-01-2022 Lymphocytes/100 WBC (Bld) 32.3 % . [facility] MCH Auto (RBC) [Entitic mass ]Ordered By: Remy Motley on 06-01-2022 MCH (RBC) [Entitic mass] 32.8 pg 24.7-34.3 [facility] MCHC Auto (RBC) [Mass/Vol]Or dered By: Remy Motley on 06-01-2022 MCHC (RBC) [Mass/Vol] 33.4 g/dL 32.0-35.0 [facility] MCV Auto (RBC) [Entitic vol] Ordered By: Remy Motley on 06-01-2022 MCV (RBC) [Entitic vol] 98.2 fL 80-100 F [facility] Monocytes Auto (Bld) [#/Vol] Ordered By: Remy Motley on 06-01-2022 Monocytes (Bld) [#/Vol] 0.5 10*3/uL 0.0-0.8 [facility] Monocytes/100 WBC Auto (Bld) Ordered By: Remy Motley on 06-01-2022 Monocytes/100 WBC (Bld) 9.6 % . F [facility] Neutrophils Auto (Bld) [#/Vo l]Ordered By: Remy Motley on 06-01-2022 Neutrophils (Bld) [#/Vol] 2.9 10*3/uL 1.8-7.7 [facility] Neutrophils/100 WBC Auto (Bl d)Ordered By: Remy Motley on 06-01-2022 Neutrophils/100 WBC (Bld) 53.6 % . [facility] Nitrite Test strip Ql (U)Ord ered By: Remy Motley on 06-01-2022 Nitrite Ql (U) Negative Negative [facility] No Panel InformationOrdered By: Remy Motley on 06-01-2022 Estimated GFR () > 60 mL/Min [facility] Comment on above: GFR estimated refere nce range: According to KDOQI guidelines, <60 ml/min/1.73m2 is sufficient to diagnose a patient with chronic kidney disease. Pharmacy Creatinine Clearance (Chem 71.02 [facility] SARS Antigen (LFIA) [facility] Phencyclidine Screen Ql (U)O rdered By: Remy Motley on 06-01-2022 Phencyclidine Ql (U) Negative Negative [facility] Platelet mean volume Auto (B ld) [Entitic vol]Ordered By: Remy Motley on 06-01-2022 Platelet mean volume (Bld) [Entitic vol] 7.6 fL 6.3-10.7 [facility] Platelets Auto (Bld) [#/Vol] Ordered By: Remy Motley on 06-01-2022 Platelets (Bld) [#/Vol] 179 10*3/uL 150-450 [facility] Protein Auto test strip (U) [Mass/Vol]Ordered By: Remy Motley on 06-01-2022 Protein (U) [Mass/Vol] Negative Negative Fi [facility] Protein [Mass/volume] in Ser um or PlasmaOrdered By: Remy Motley on 06-01-2022 Protein [Mass/Vol] 7.2 g/dL 6.1-7.9 [facility] RBC Auto (Bld) [#/Vol]Ordere d By: Remy Motley on 06-01-2022 RBC (Bld) [#/Vol] 3.90 10*6/uL 3.60-5.00 [facility] Serum or plasma alanine iwllson otransferase measurement without P-5'-P (enzymatic activiOrdered By: Remy Motley on 06-01-2022 ALT No additional P-5'-P [Catalytic activity/Vol] 54 U/L 10-60 [facility] Serum or plasma albumin/glob ulin mass ratioOrdered By: Remy Motley on 06-01-2022 Albumin/Globulin [Mass ratio] 1.1 {ratio} [facility] Serum or plasma alkaline manny sphatase measurement (enzymatic activity/volume)Ordered By: Remy Motley on 06-01-2022 ALP [Catalytic activity/Vol] 98 U/L 32-92 [facility] Serum or plasma anion gap de terminationOrdered By: Remy Motley on 06-01-2022 Anion gap [Moles/Vol] 12.4 mmol/L 6.0-15.[address] [facility] Serum or plasma aspartate am inotransferase measurement (enzymatic activity/volume)Ordered By: Remy Motley on 06-01-2022 AST [Catalytic activity/Vol] 100 U/L 10-42 [facility] Serum or plasma calcium juan ramon urement (mass/volume)Ordered By: Remy Motley on 06-01-2022 Calcium [Mass/Vol] 8.6 mg/dL 8.2-10.2 [facility] Serum or plasma chloride adebayo surement (moles/volume)Ordered By: Remy Motley on 06-01-2022 Chloride [Moles/Vol] 100 mmol/L 95-114 [facility] Serum or plasma ethanol juan ramon urement (mass/volume)Ordered By: Remy Motley on 06-01-2022 Ethanol [Mass/Vol] 268 mg/dL [facility] Ethanol [Mass/Vol] 0.268 % [facility] Serum or plasma glucose juan ramon urement (mass/volume)Ordered By: Remy Motley on 06-01-2022 Glucose [Mass/Vol] 138 mg/dL 70-100 [facility] Comment on above: ADA recommended refe rence rangeRandom Glucose Reference Range is dependent on time and content of last meal. Glucose of more than 200 mg/dL in a nonstressed, ambulatory subject supports the diagnosis of Diabetes Mellitus. Serum or plasma potassium me asurement (moles/volume)Ordered By: Remy Motley on 06-01-2022 Potassium [Moles/Vol] 4.2 mmol/L 3.5-5.1 [facility] Serum or plasma sodium measu rement (moles/volume)Ordered By: Remy Motley on 06-01-2022 Sodium [Moles/Vol] 132 mmol/L 136-146 [facility] Serum or plasma total biliru bin measurement (mass/volume)Ordered By: Remy Motley on 06-01-2022 Bilirubin [Mass/Vol] 0.6 mg/dL 0.3-1.2 [facility] Serum or plasma total carbon dioxide measurement (moles/volume)Ordered By: Remy Motley on 06-01-2022 CO2 [Moles/Vol] 23.8 mmol/L 22.0-30.0 [facility] Serum or plasma urea nitroge n measurement (mass/volume)Ordered By: Remy Motley on 06-01-2022 Urea nitrogen [Mass/Vol] 22 mg/dL 04-12 [facility] Kate Ag Negativeon 06-01-20 Kate Ag Negative Negative Normal Negative [facility] Comment on above: Result Comment: This is a duplicate Kate SARS Antigen (MY) result to be used for statistical tracking purpose only. PERFORMED BY: [place] [address] PATHOLOGIST WHEEL ALIGNMENT TECHNICIAN IDANIA WHITESIDE M.D. Performed By: #### T SH3 wRFLX, T4F, LIPID, [id number] #### [facility] [address] [place] [address] Specific gravity Auto test s trip (U) [Rel density]Ordered By: Remy Motley on 06-01-2022 Specific gravity (U) [Rel density] 1.005 1.001-1.030 [facility] Squamous epithelial cells de tection in urine sediment by light microscopyOrdered By: Remy Motley on 06-01-2022 Epithelial cells.squamous LM Ql (Urine sed) 0-1 [HPF] 0-2 [facility] Thyroid Stim Hormone w/Rflxo n 06-01-2022 Thyroid Stim Hormone w/Rflx 14.64 u[iU]/mL High 0.45-5.33 [facility] Comment on above: Order Comment: Comme nt use ed blood Comment us ed blood Performed By: #### T SH3 wRFLX, T4F, LIPID, [id number] #### [facility] [address] [place] [address] Urine bacteria detection by automated methodOrdered By: Remy Motley on 06-01-2022 Bacteria Auto Ql (U) None seen None Seen [facility] Urine clarity by refractomet ry automatedOrdered By: Remy Motley on 06-01-2022 Clarity Refractometry automated (U) Clear Clear [facility] Urine cocaine detectionOrder ed By: Remy Motley on 06-01-2022 Cocaine Ql (U) Negative Negative [facility] Urine glucose measurement by automated test strip (mass/volume)Ordered By: Remy Motley on 06-01-2022 Glucose Auto test strip (U) [Mass/Vol] Normal mg/dL Normal [facility] Urine hemoglobin detection b y automated test stripOrdered By: Remy Motley on 06-01-2022 Hemoglobin Auto test strip Ql (U) Negative Negative [facility] Urine leukocyte esterase det ection by automated test stripOrdered By: Remy Motley on 06-01-2022 Leukocyte esterase Auto test strip Ql (U) 3+ Negative [facility] Urobilinogen Auto test strip (U) [Mass/Vol]Ordered By: Remy Motley on 06-01-2022 Urobilinogen (U) [Mass/Vol] Normal mg/dL Normal [facility] Vitamin D 25 Hydroxy Totalon 06-01-2022 Vitamin D 25 Hydroxy Total 24.2 ng/mL Low 30-100 [facility] Comment on above: Order Comment: Comme nt use ed blood Comment us ed blood Result Comment: MALDONADO MIN D STATUS 25(OH)VITAMIN D RANGE (ng/mL) Deficient <20 Insufficient 20 to <30 Sufficient 30 to 100 Reference: Bandar MF,Cara NC, Marissa NICHOLAS, et al. Evaluation,treatment, and prevention of vitamin D deficiency; an Endocrine Society clinical practice guideline. JCEM. 2010; 96(7):1911-30. PERFORMED BY: [place] [address] PATHOLOGIST WHEEL ALIGNMENT TECHNICIAN IDANIA WHITESIDE M.D. Performed By: #### C K, ESR, BMP, CRP #### [place] [address] [place] #### MYOG, ALDOLASE #### [facility] , pH Auto test strip (U)Ordere d By: Remy Motley on 06-01-2022 pH (U) 6.5 [pH] 5.0-9.0 [facility] Ambulatory Visit Summaryon 0 11-15-2021 Ambulatory Visit Summary ALYCE DAVID :1955 Visit Date:11/15/2021 Ambulatory Visit Instructions Your Diagnosis Urinary retention UTI (urinary tract infection) Tests Performed Urnls Dip Stick Auto w/o Microscopy POC 94890 Your Care Team Attending Physician - Rayo CIFUENTES, Dottie Ellis Primary Care Physician - AYSHA DE PAZ [...] Follow Up with Rayo CIFUENTES, Dottie Ellis, URL, URO When: Only if needed Where: Medications [...] Urnls Dip Stick Auto w/o Microscopy POC 36565 (11/15/2021) Bilirubin Urine Dipstick - Negative Blood Urine Dipstick - Negative Glucose Urine Dipstick - Negative Ketones Urine Dipstick - Negative Leukocytes Urine Dipstick - Trace Nitrite Urine Dipstick - Negative Protein Urine Dipstick - Negative Specific [place] Urine Dipstick - 1.020 Urine Appearance Urine [...] Urinary retention UTI (urinary tract infection) Normal [facility] Patient Educationon 11-16-19 Patient Education Obstetrics [...] Follow these instructions at home: ? Take wtlv-chb-sjcesye and prescription medicines only as told by [...] 07/06/2007 Document Revised: 06/19/2018 Document Reviewed: 08/08/2017 [employer] Patient Education ? 2019 [employer]. Sadaf Vivas [facility] Urology Office/Clinic Noteon 11-15-2021 Urology Office/Clinic Note [...] time Follow-up With When Contact Information Rayo CIFUNETES, Dottie Ellis, URL, URO Only if needed Additional Instructions: Patient Education Acute Urinary Retention, Female I, Julio Slade personally scribed for Dr. Cade 11/15/2021 11:54:21. [...] Protein Urine Dipstick: Negative (11/15/21 11:06:00) Specific [place] Urine Dipstick: 1.020 (11/15/21 11:06:00) Urine Appearance Urine Dipstick: Clear (11/15/21 11:06:00) Urine Color Urine Dipstick: Yellow (11/15/21 11:06:00) Urobilinogen Urine Dipstick: Normal 0.2-1 EU/dl (11/15/21 11:06:00) pH Urine Dipstick: 5.5 (11/15/21 11:06:00) Diagnostic Results Tests Reviewed: Reviewed UA. Normal [facility] Comment on above: Result Comment: Elec tronically Signed By: Dottie Cade MD\.br\Date and Time Signed: 11/15/21 12:03 EDT\.br\Electronically Co-Signed By: Julio Slade\.br\Date and Time Co-Signed: 11/15/21 11:54 EDT CBC W Auto Differential pane l (Bld)on 10-30-2021 Basophils (Bld) [#/Vol] 0.12 10*3/uL High <0.11 [facility] Comment on above: Order Comment: Speci men Type: BLOOD SPECIMEN Ordering Facility: [facility] Address: [address] [place] [id number] Performed By: #### M PNP #### [facility] CLIA [id number] [address] [place], [place] [address] [address] [place] #### 99424-7 #### [facility] CLIA [id number] [address] [place] [address] Basophils/100 WBC (Bld) 1.1 % Normal [facility] Comment on above: Order Comment: Speci men Type: BLOOD SPECIMEN Ordering Facility: [facility] Address: [address] [place] [address] Performed By: #### M PNP #### [facility] CLIA [id number] [address] [place] [address] [place] #### 28398-0 #### [facility] CLIA [id number] [address] [place] [address] Differential cell count method Nom (Bld) Auto Normal [facility] Comment on above: Order Comment: Speci men Type: BLOOD SPECIMEN Ordering Facility: [facility] Address: [address] [place] [address] Performed By: #### M PNP #### [facility] CLIA [id number] [address] [place] [address] [place] #### [id number] #### [facility] CLIA [id number] [address] [place] [address] Eosinophils (Bld) [#/Vol] 0.51 10*3/uL High <0.46 [facility] Comment on above: Order Comment: Speci men Type: BLOOD SPECIMEN Ordering Facility: [facility] Address: [address] [place] [address] Performed By: #### M PNP #### [facility] CLIA [id number] [address] [place] [address] [place] #### 27563-6 #### [facility] CLIA [id number] [address] [place] [address] Eosinophils/100 WBC (Bld) 4.6 % Normal [facility] Comment on above: Order Comment: Speci men Type: BLOOD SPECIMEN Ordering Facility: [facility] Address: [address] [place] [address] Performed By: #### M PNP #### [facility] CLIA [id number] [address] [place] [address] [place] #### 81753-0 #### [facility] CLIA [id number] [address] [place] [address] Erythrocyte distribution width (RBC) [Ratio] 14.9 % Normal 11.5-15.0 [facility] Comment on above: Order Comment: Speci men Type: BLOOD SPECIMEN Ordering Facility: [facility] Address: [address] [place] [address] Performed By: #### M PNP #### [facility] CLIA [id number] [address] [place] [address] [place] #### 33347-2 #### [facility] CLIA [id number] [address] [place] [address] Hematocrit (Bld) [Volume fraction] 34.1 % Low 36.0-46.0 [facility] Comment on above: Order Comment: Speci men Type: BLOOD SPECIMEN Ordering Facility: [facility] Address: [address] [place] [address] Performed By: #### M PNP #### [facility] CLIA [id number] [address] [place] [address] [place] #### 05979-5 #### [facility] CLIA [id number] [address] [place] [address] Hemoglobin (Bld) [Mass/Vol] 10.8 g/dL Low 11.5-15.5 [facility] Comment on above: Order Comment: Speci men Type: BLOOD SPECIMEN Ordering Facility: [facility] Address: [address] [place] [address] Performed By: #### M PNP #### [facility] CLIA [id number] [address] [place] [address] [place] #### 44505-3 #### [facility] CLIA [id number] [address] [place] [address], [place] [address] IMMATURE GRAN % 1.2 % Normal [facility] Comment on above: Order Comment: Speci men Type: BLOOD SPECIMEN Ordering Facility: [facility] Address: [address] [place] [address] Performed By: #### M PNP #### [facility] CLIA [id number] [address] [place] [address] #### 56607-9 #### [facility] CLIA [id number] [address] [place] [address] IMMATURE GRAN ABS 0.13 k/uL High <0.10 [facility] Comment on above: Order Comment: Speci men Type: BLOOD SPECIMEN Ordering Facility: [facility] Address: [address] [place] [address] Performed By: #### M PNP #### [facility] CLIA [id number] [address] [place] [address] #### 08946-0 #### [facility] CLIA [id number] [address] [place] [address] Lymphocytes (Bld) [#/Vol] 2.03 10*3/uL Normal 1.00-4.00 [facility] Comment on above: Order Comment: Speci men Type: BLOOD SPECIMEN Ordering Facility: [facility] Address: [address] [place], [place] [address] Performed By: #### M PNP #### [facility] CLIA [id number] [address] [place] [address] OF [place] #### 06598-3 #### [facility] CLIA [id number] [address] [place] [address] Lymphocytes/100 WBC (Bld) 18.2 % Normal [facility] Comment on above: Order Comment: Speci men Type: BLOOD SPECIMEN Ordering Facility: [facility] Address: [address] [place], [place] [address] Performed By: #### M PNP #### [facility] CLIA [id number] [address] [place] [address] [place] #### 75427-6 #### [facility] CLIA [id number] [address] [place] [address] MCH (RBC) [Entitic mass] 30.3 pg Normal 26.0-34.0 [facility] Comment on above: Order Comment: Speci men Type: BLOOD SPECIMEN Ordering Facility: [facility] Address: [address] [place] [address] Performed By: #### M PNP #### [facility] CLIA [id number] [address] [place] [address] #### 73109-7 #### [facility] CLIA [id number] [address] [place], [place] [id number] MCHC (RBC) [Mass/Vol] 31.7 g/dL Normal 30.5-36.0 [facility] Comment on above: Order Comment: Speci men Type: BLOOD SPECIMEN Ordering Facility: [facility] Address: [address] [place] [address] Performed By: #### M PNP #### [facility] CLIA [id number] [address] [place] [address] #### 19583-9 #### [facility] CLIA [id number] [address] [place], [place] [id number] MCV (RBC) [Entitic vol] 95.5 fL Normal 80.0-100.0 [facility] Comment on above: Order Comment: Speci men Type: BLOOD SPECIMEN Ordering Facility: [facility] Address: [address] [place] [address] Performed By: #### M PNP #### [facility] CLIA [id number] [address] [place] [address] [place] #### 45676-3 #### [facility] CLIA [id number] [address] [place] [address] Monocytes (Bld) [#/Vol] 0.86 10*3/uL Normal <0.87 [facility] Comment on above: Order Comment: Speci men Type: BLOOD SPECIMEN Ordering Facility: [facility] Address: [address] [place] [address] Performed By: #### M PNP #### [facility] CLIA [id number] [address] [place] [address] [place] #### 87988-6 #### [facility] CLIA [id number] [address] [place] [address] Monocytes/100 WBC (Bld) 7.7 % Normal [facility] Comment on above: Order Comment: Speci men Type: BLOOD SPECIMEN Ordering Facility: [facility] Address: [address] [place], [place] [address] Performed By: #### M PNP #### [facility] CLIA [id number] [address] [place] [address] [place] #### 35089-1 #### [facility] CLIA [id number] [address] [place] [address] Neutrophils (Bld) [#/Vol] 7.50 10*3/uL Normal 1.45-7.50 [facility] Comment on above: Order Comment: Speci men Type: BLOOD SPECIMEN Ordering Facility: [facility] Address: [address] [place], [place] [address] Performed By: #### M PNP #### [facility] CLIA [id number] [address] [place] [address] [place] #### 51661-9 #### [facility] CLIA [id number] [address] [place] [address] Neutrophils/100 WBC (Bld) 67.2 % Normal [facility] Comment on above: Order Comment: Speci men Type: BLOOD SPECIMEN Ordering Facility: [facility] Address: [address] [place], [place] [address] Performed By: #### M PNP #### [facility] CLIA [id number] [address] [place] [address] OF [place] #### 13272-7 #### [facility] CLIA [id number] [address] [place] [address] Nucleated RBC (Bld) [#/Vol] 10*3/uL Normal <0.01 [facility] Comment on above: Order Comment: Speci men Type: BLOOD SPECIMEN Ordering Facility: [facility] Address: [address] [place], [place] [address] Performed By: #### M PNP #### [facility] CLIA [id number] [address] [place] [address] [place] #### 30900-2 #### [facility] CLIA [id number] [address] [place] [address] 08809 Nucleated RBC/100 WBC (Bld) [Ratio] 0.0 /100 WBC Normal [facility] Comment on above: Order Comment: Speci men Type: BLOOD SPECIMEN Ordering Facility: [facility] Address: [address] [place], [place] [address] Performed By: #### M PNP #### [facility] ILL[facility]S CLIA [id number] [address] [place] [address] OF RADHA #### 33227-2 #### [facility] CLIA [id number] [address] [place] [address]115 Platelet mean volume (Bld) [Entitic vol] 9.0 fL Normal 9.0-12.7 [facility] Comment on above: Order Comment: Speci men Type: BLOOD SPECIMEN Ordering Facility: [facility] Address: [address] [place] [address] Performed By: #### M PNP #### [facility] ILLUMINA LIMS CLIA [id number] [address] [place] [address] RADHA #### 19179-0 #### [facility] CLIA [id number] [address] [place] [address]346 Platelets (Bld) [#/Vol] 336 10*3/uL Normal 150-400 [facility] Comment on above: Order Comment: Speci men Type: BLOOD SPECIMEN Ordering Facility: [facility] Address: [address] [place], [place] [address] Performed By: #### M PNP #### [facility] ILLUMINA LIMS CLIA [id number] [address] [place] [address] #### 26291-5 #### [facility] CLIA [id number] [address] [place] [address] 63096 RBC (Bld) [#/Vol] 3.57 10*6/uL Low 3.90-5.20 [facility] Comment on above: Order Comment: Speci men Type: BLOOD SPECIMEN Ordering Facility: [facility] Address: [address] [place], [place] [address] Performed By: #### M PNP #### [facility] ILLUMINA LIMS CLIA [id number] [address] [place] [address] OF RADHA #### 62741-9 #### [facility] CLIA [id number] [address] [place] [address]221 WBC (Bld) [#/Vol] 11.15 10*3/uL High 3.70-11.00 [facility] Comment on above: Order Comment: Speci men Type: BLOOD SPECIMEN Ordering Facility: [facility] Address: [address] [place] [address] Performed By: #### M PNP #### [facility] ILLUMINA LIMS CLIA [id number] [address] [place] [address] STATES OF [place] #### 39208-0 #### [facility] CLIA [id number] [address] [place] [address] 28003 Abs Immature Gran 0.13 k/uL High <0.10 k/uL [facility] Basophils (Bld) [#/Vol] 0.12 10*3/uL High <0.11 k/uL [facility] Basophils/100 WBC (Bld) 1.1 % C [facility] Differential cell count method Nom (Bld) Auto [facility] Eosinophils (Bld) [#/Vol] 0.51 10*3/uL High <0.46 k/uL [facility] Eosinophils/100 WBC (Bld) 4.6 % [facility] Erythrocyte distribution width (RBC) [Ratio] 14.9 % 11.5 - 15.0 % [facility] Hematocrit (Bld) [Volume fraction] 34.1 % Low 36.0 - 46.0 % [facility] Hemoglobin (Bld) [Mass/Vol] 10.8 g/dL Low 11.5 - 15.5 g/dL [facility] Immature Gran % 1.2 % [facility] Lymphocytes (Bld) [#/Vol] 2.03 10*3/uL 1.00 - 4.00 k/uL [facility] Lymphocytes/100 WBC (Bld) 18.2 % [facility] MCH (RBC) [Entitic mass] 30.3 pg 26.0 - 34.0 pg [facility] MCHC (RBC) [Mass/Vol] 31.7 g/dL 30.5 - 36.0 g/dL [facility] MCV (RBC) [Entitic vol] 95.5 fL 80.0 - 100.0 fL [facility] Monocytes (Bld) [#/Vol] 0.86 10*3/uL <0.87 k/uL [facility] Monocytes/100 WBC (Bld) 7.7 % C [facility] Neutrophils (Bld) [#/Vol] 7.50 10*3/uL 1.45 - 7.50 k/uL [facility] Neutrophils/100 WBC (Bld) 67.2 % [facility] Nucleated RBC (Bld) [#/Vol] 10*3/uL <0.01 k/uL [facility] Nucleated RBC/100 WBC (Bld) [Ratio] 0.0 /100 WBC [facility] Platelet mean volume (Bld) [Entitic vol] 9.0 fL 9.0 - 12.7 fL [facility] Platelets (Bld) [#/Vol] 336 10*3/uL 150 - 400 k/uL [facility] RBC (Bld) [#/Vol] 3.57 10*6/uL Low 3.90 - 5.2 0 m/uL [facility] WBC (Bld) [#/Vol] 11.15 10*3/uL High 3.70 - 11.00 k/uL [facility] CNOVSPon 10-30-2021 CNOVSP Visit (SP) Office ([facility]) ALYCE DAVID ([id number]) 1955 F Date Time Provider Department 10/30/21 [...] hemoglobin ranging from 9?10 g/dL noted during [facility] hospitalization (presented with proximal muscle weakness, urinary [...] is itching. She has not seen a junior software engineer. She is here to follow-up with a [...] are from cancer. She lives alone in [place], [place] but now has her son for [...] neurologist to complete the work-up. Referral to junior software engineer for inflammatory skin rash. XR chest was notable for mild diffuse interstitial infiltrates. Cough is improving. If it worsens, will consider CT chest in the future. Follow-up in 4 weeks with repeat labs. Carl Patel MD I spent a total of 25 minutes on the date of the service which included preparing to see the patient, [id number] patient care, completing clinical documentation, obtaining and/or reviewing separately obtained history, performing a medically appropriate examination, counseling and educating the patient/family/caregi patti, ordering medications, tests, or procedures, independently interpreting results (not separately reported) and communicating results to the patient/family/caregi patti. Maricarmen Kebede MA 10/30/2021 11:02 AM Signed Patient was recently in the [facility] due to Anemia. CHRIS Zimmerman MD 10/30/2021 12:21 PM Signed Addended by: CARL PATEL on: 10/30/2021 12:21 PM Modules accepted: Orders Referring Provider: CARL PATEL [[id number]] Allergies As of Date: 10/30/2021 (No Known Allergies) Date Reviewed: 10/30/2021 Reviewed by: Maricarmen Kebede MA - (more content not included)... [facility] (N[facility]) ALYCE DAVID ([id number]) 1955 F Date Time Provider Department 10/30/21 CARL PATEL During your visit today, we recorded the following information about you: Rosa Marin Sec 10/30/2021 11:34 AM Signed Alyce is being referred to [facility] for skin rash. Mikaela, Please fax records to their office for referral. They will call the patient to schedule. Info printed in your mailbox for faxing. Thank you!! Corinna Tan [facility]italo [facility] 10/30/2021 1:05 PM Signed Records faxed to [facility]. Kimber Singh Pss 10/31/2021 12:25 PM Signed Called [facility] spoke with Nuria. She states [...] Status:Closed by ROSA PRETTY on 11/01/21 Normal [facility] Comprehensive metabolic 2000 panelon 10-30-2021 Albumin [Mass/Vol] 4.0 g/dL Normal 3.9-4.[address] [facility] Comment on above: Order Comment: Speci men Type: BLOOD SPECIMEN Ordering Facility: [facility] Address: [address] [place] [address] Performed By: #### K LFRS #### [facility] CLIA [id number] [address] [place] [address] [place] ALP [Catalytic activity/Vol] 106 U/L Normal 34-123 [facility] Comment on above: Order Comment: Speci men Type: BLOOD SPECIMEN Ordering Facility: [facility] Address: [address] [place] [address] Performed By: #### K LFRS #### [facility] CLIA [id number] [address] [place] [address] [place] ALT [Catalytic activity/Vol] 24 U/L Normal 7-38 [facility] Comment on above: Order Comment: Speci men Type: BLOOD SPECIMEN Ordering Facility: [facility] Address: [address] [place] [address] Performed By: #### K LFRS #### [facility] CLIA [id number] [address] [place] [address] [place] Anion gap [Moles/Vol] 9 mmol/L Normal 9-18 [facility] Comment on above: Order Comment: Speci men Type: BLOOD SPECIMEN Ordering Facility: [facility] Address: [address] [place], [place] [address] Performed By: #### K LFRS #### [facility] CLIA [id number] [address] [place] [address] [place] AST [Catalytic activity/Vol] 20 U/L Normal 13-35 [facility] Comment on above: Order Comment: Speci men Type: BLOOD SPECIMEN Ordering Facility: [facility] Address: [address] [place], [place] [address] Performed By: #### K LFRS #### [facility] CLIA [id number] [address] [place] [address] [place] Bilirubin [Mass/Vol] 0.2 mg/dL Normal 0.2-1.3 [facility] Comment on above: Order Comment: Speci men Type: BLOOD SPECIMEN Ordering Facility: [facility] Address: [address] [place], [place] [address] Performed By: #### K LFRS #### [facility] CLIA [id number] [address] [place] [address] [place] Calcium [Mass/Vol] 9.7 mg/dL Normal 8.5-10.[address] [facility] Comment on above: Order Comment: Speci men Type: BLOOD SPECIMEN Ordering Facility: [facility] Address: [address] [place], [place] [address] Performed By: #### K LFRS #### [facility] CLIA [id number] [address] [place] [address] [place] Chloride [Moles/Vol] 100 mmol/L Normal 97-105 [facility] Comment on above: Order Comment: Speci men Type: BLOOD SPECIMEN Ordering Facility: [facility] Address: [address] [place] [address] Performed By: #### K LFRS #### [facility] CLIA [id number] [address] [place] [address] [place] CO2 [Moles/Vol] 27 mmol/L Normal 22-30 [facility] Comment on above: Order Comment: Speci men Type: BLOOD SPECIMEN Ordering Facility: [facility] Address: [address] [place] [address] Performed By: #### K LFRS #### [facility] CLIA [id number] [address] [place] [address] [place] Creatinine [Mass/Vol] 0.61 mg/dL Normal 0.58-0.96 [facility] Comment on above: Order Comment: Romeo vasquez Type: BLOOD SPECIMEN Ordering Facility: [facility] Address: [address] [place] [address] Performed By: #### K LFRS #### [facility] CLIA [id number] [address] [place] [address] [place] ESTIMATED GLOMERULAR FILTRATION RATE 98 mL/min/1.73m??? Normal >=60 [facility] Comment on above: Order Comment: Romeo vasquez Type: BLOOD SPECIMEN Ordering Facility: [facility] Address: [address] [place] [address] Result Comment: Christelle mated Glomerular Filtration Rate [...] GFR. Performed By: #### K LFRS #### [facility] CLIA [id number] [address] [place] [address] [place] Glucose [Mass/Vol] 106 mg/dL High 74-[address] [facility] Comment on above: Order Comment: Romeo vasquez Type: BLOOD SPECIMEN Ordering Facility: [facility] Address: [address] [place] [address] Result Comment: The [place] Diabetes Association (ADA) provides guidance for cutoff [...] Standards of Medical Care in Diabetes 2016, [place] Diabetes Association. Diabetes Care. 2016.39(Suppl 1). Performed By: #### K LFRS #### [facility] CLIA [id number] [address] [place] [address] [place] Potassium [Moles/Vol] 3.8 mmol/L Normal 3.7-5.1 [facility] Comment on above: Order Comment: Speci men Type: BLOOD SPECIMEN Ordering Facility: [facility] Address: [address] [place] [address] Performed By: #### K LFRS #### [facility] CLIA [id number] [address] [place] [address] [place] Protein [Mass/Vol] 6.8 g/dL Normal 6.3-8.[address] [facility] Comment on above: Order Comment: Speci men Type: BLOOD SPECIMEN Ordering Facility: [facility] Address: [address] [place], [place] [address] Performed By: #### K LFRS #### [facility] CLIA [id number] [address] [place] [address] [place] Sodium [Moles/Vol] 136 mmol/L Normal 136-[address] [facility] Comment on above: Order Comment: Speci men Type: BLOOD SPECIMEN Ordering Facility: [facility] Address: [address] [place], [place] [address] Performed By: #### K LFRS #### [facility] CLIA [id number] [address] [place] [address] [place] Urea nitrogen [Mass/Vol] 14 mg/dL Normal 7-21 [facility] Comment on above: Order Comment: Speci men Type: BLOOD SPECIMEN Ordering Facility: [facility] Address: [address] [place], [place] [address] Performed By: #### K LFRS #### [facility] CLIA [id number] [address] [place] [address] [place] [facility] Albumin [Mass/Vol] 4.0 g/dL 3.9 - 4.9 g/dL [facility] ALP [Catalytic activity/Vol] 106 U/L 34 - 123 U/L [facility] ALT [Catalytic activity/Vol] 24 U/L 7 - 38 U/L [facility] Anion gap [Moles/Vol] 9 mmol/L 9 - 18 mmol/L [facility] AST [Catalytic activity/Vol] 20 U/L 13 - 35 U/L [facility] Bilirubin [Mass/Vol] 0.2 mg/dL 0.2 - 1 .3 mg/dL [facility] Calcium [Mass/Vol] 9.7 mg/dL 8.5 - 10. 2 mg/dL [facility] Chloride [Moles/Vol] 100 mmol/L 97 - 10 5 mmol/L [facility] CO2 [Moles/Vol] 27 mmol/L 22 - 30 mmol/L [facility] Creatinine [Mass/Vol] 0.61 mg/dL 0.58 - 0.96 mg/dL [facility] Estimated Glomerular Filtration Rate 98 mL/min/1.73m >=60 mL/min/1.73 m [facility] Glucose [Mass/Vol] 106 mg/dL High 74 - 99 mg/dL [facility] Potassium [Moles/Vol] 3.8 mmol/L 3.7 - 5.1 mmol/L [facility] Protein [Mass/Vol] 6.8 g/dL 6.3 - 8.0 g/dL [facility] Sodium [Moles/Vol] 136 mmol/L 136 - 144 mmol/L [facility] Urea nitrogen [Mass/Vol] 14 mg/dL 7 - 21 mg/dL [facility] MYELOPROLIFERATIVE NEOPLASM PANEL BLOODon 10-30-2021 MYELOPROLIFERATIVE NEOPLASM PNL PERIPHERAL BLOOD Normal [facility] Comment on above: Order Comment: Speci men Type: BLOOD SPECIMEN Ordering Facility: [facility] Address: [address] [place], [place] [address] Result Comment: Myel oproliferative Neoplasm Panel Laboratory Accession Number: [id number] Sample Type: Peripheral Blood Result: CALR - [...] sequencing was performed on the Illumina instrument ([place], [place]). A customized bioinformatic pipeline was used to align the sequencing reads to the reference human genome (GRCh37/hg19). Benign common polymorphisms are not reported. Limitations: Sequence changes outside the analyzed regions, including intronic, noncoding, and splice-site variants, will not be identified by this test. The lower limit of detection of this assay is approximately 1% allele proportion for the JAK2 [id number] single nucleotide variant and approximately 5% allele [...] developed and its performance characteristics determined by [facility]'s Óscar JTanmay [facility] Pathology [facility] Laboratory Medicine [place] [facility]). It has not been cleared or approved by the FDA. [facility] is regulated under CLIA as certified to perform high- complexity testing. This test is used for clinical purposes. It should not be regarded as investigational or for research. Testing and interpretation performed at [facility], [address] [place], [place] [address]. CLIA Number: [id number] References: 1) Rosio TANG, Nika Ndiaye, John Silva, Kalen Lynch, Skylar MJ, Marie Smallwood MM, et al. The 2016 revision to the World Health Organization (WHO) classification of myeloid neoplasms and acute leukemia. Blood 2016;127: 2391-405. 2) NCCN Guidelines, Myeloproliferative Neoplasms, Version 2.2018. 3) Damien Beyer, Janes YEUNG. Genomics of Myeloproliferative Neoplasms. J Clin Oncol. 2017 Oct 07;35(9):947-954. As reviewed by Ayde Kan, PhD, HCLD Performed By: #### M PNP #### [facility] CLIA [id number] [address] [place] [address] OF [place] #### 55539-4 #### [facility] CLIA [id number] [address] [place] [address] Nuclear Ab IA Ql (S)on 10-30 DENISE BY EIA, QUAL Negative Normal Negative Gabriel [facility] Comment on above: Order Comment: Speci men Type: BLOOD SPECIMEN Ordering Facility: [facility] Address: [address] [place] [address] Result Comment: The qualitative antinuclear antibody screen test performed using enzyme immunoassay including the following antigens: dsDNA, histones, SS-A, SS-B, Sm, Sm/SOIL TESTER, Scl-70, Camila-1, and centromeric antigens. Performed By: #### 4 7383-5 #### [facility] CLIA [id number] [address] [place] [address] OF [place] Ambulatory Visit Summaryon 0 10-18-2021 Ambulatory Visit Summary ALYCE DAVID :1955 Visit Date:10/18/2021 Ambulatory Visit Instructions Your Diagnosis Urinary retention UTI (urinary tract infection) BMI 30.0-30.9,adult Your Care Team Attending Physician - Rayo CIFUENTES, Dottie Ellis Primary Care Physician - AYSHA DE PAZ [...] Dottie Cade MD Where: [facility] Leonard [facility] Formson 10-18-2021 Forms [id number] .00CD:127 [facility] Patient Correspondenceon Patient Correspondence [id number]. 00CD:127 [facility] Patient Educationon 10-19-19 Patient Education Nutrition [...] You could (more content not included)... Normal [facility] Urology Office/Clinic Noteon 10-18-2021 Urology Office/Clinic Note Chief Complaint [facility] follow up. HPI Staff Alyce is here today as a new patient following up from [facility] ER on 09/25/21. Pt was seen in [...] Pt is here for follow up to [facility] consult due to Urinary Retention on 09/25/2021 [...] pericatheter prophylaxis. Follow-up With When Contact Information Dottie Cade MD, URL, URO In 1 month 11/18/2021 EDT Additional Instructions: w/PVR Patient Education Acute Urinary Retention, Female, Pkac-cy-Nymj Calorie Counting for Weight Loss I, Shalini Paulson, personally scribed for Dr. Cade on 10/18/2021 [...] than 30 days ago Tobacco Use:., 10/18/2021 [facility] Comment on above: Result Comment: Elec tronically Signed By: Dottie Cade MD\.br\Date and Time Signed: 10/18/21 13:24 EDT\.br\Electronically Co-Signed By: Shalini Paulson\.br\Date and Time Co-Signed: 10/18/21 08:53 EDT CBC W Auto Differential pane l (Bld)on 10-16-2021 Basophils (Bld) [#/Vol] 0.10 10*3/uL Normal <0.11 [facility] Comment on above: Order Comment: Speci men Type: BLOOD SPECIMEN Ordering Facility: [facility] Address: [address] [place] [address] Performed By: #### 1 4196-0, 45296-3 #### [facility] CLIA [id number] [address] [place] [address] Basophils/100 WBC (Bld) 1.0 % Normal [facility] Comment on above: Order Comment: Speci men Type: BLOOD SPECIMEN Ordering Facility: [facility] Address: [address] [place] [address] Performed By: #### 1 4196-0, 45949-8 #### [facility] CLIA [id number] [address] [place] [address] Differential cell count method Nom (Bld) Auto Normal [facility] Comment on above: Order Comment: Speci men Type: BLOOD SPECIMEN Ordering Facility: [facility] Address: [address] [place] [address] Performed By: #### 1 4196-0, 53681-6 #### [facility] CLIA [id number] [address] [place] [address] Eosinophils (Bld) [#/Vol] 0.52 10*3/uL High <0.46 [facility] Comment on above: Order Comment: Speci men Type: BLOOD SPECIMEN Ordering Facility: [facility] Address: [address] [place] [address] Performed By: #### 1 4196-0, 61985-4 #### [facility] CLIA [id number] [address] [place] [address] Eosinophils/100 WBC (Bld) 5.2 % Normal [facility] Comment on above: Order Comment: Speci men Type: BLOOD SPECIMEN Ordering Facility: [facility] Address: [address] [place], [place] [address] Performed By: #### 1 4196-0, 77102-9 #### [facility] CLIA [id number] [address] [place] [address] Erythrocyte distribution width (RBC) [Ratio] 14.1 % Normal 11.5-15.0 [facility] Comment on above: Order Comment: Speci men Type: BLOOD SPECIMEN Ordering Facility: [facility] Address: [address] [place], [place] [address] Performed By: #### 1 4196-0, 07354-9 #### [facility] CLIA [id number] [address] [place] [address] Hematocrit (Bld) [Volume fraction] 31.4 % Low 36.0-46.0 [facility] Comment on above: Order Comment: Speci men Type: BLOOD SPECIMEN Ordering Facility: [facility] Address: [address] [place], [place] [address] Performed By: #### 1 4196-0, 00903-6 #### [facility] CLIA [id number] [address] [place] [address] Hemoglobin (Bld) [Mass/Vol] 9.9 g/dL Low 11.5-15.5 [facility] Comment on above: Order Comment: Speci men Type: BLOOD SPECIMEN Ordering Facility: [facility] Address: [address] Performed By: #### 1 4196-0, 64383-9 #### [facility] CLIA [id number] [address] [place] [address] IMMATURE GRAN % 0.7 % Normal [facility] Comment on above: Order Comment: Speci men Type: BLOOD SPECIMEN Ordering Facility: [facility] Address: [address] [place], [place] [address] Performed By: #### 1 4196-0, 81258-7 #### [facility] CLIA [id number] [address] [place] [address] IMMATURE GRAN ABS 0.07 k/uL Normal <0.10 [facility] Comment on above: Order Comment: Speci men Type: BLOOD SPECIMEN Ordering Facility: [facility] Address: [address] [place] [address] Performed By: #### 1 4196-0, 64568-0 #### [facility] CLIA [id number] [address] [place] [address] Lymphocytes (Bld) [#/Vol] 1.38 10*3/uL Normal 1.00-4.00 [facility] Comment on above: Order Comment: Speci men Type: BLOOD SPECIMEN Ordering Facility: [facility] Address: [address] [place] [address] Performed By: #### 1 6-0, 64911-8 #### [facility] CLIA [id number] [address] [place] [address] Lymphocytes/100 WBC (Bld) 13.9 % Normal [facility] Comment on above: Order Comment: Speci men Type: BLOOD SPECIMEN [facility] [facility] Address: [address] [place] [address] Performed By: #### 1 4196-0, 50423-8 #### [facility] CLIA [id number] [address] [place] [address] 74916 MCH (RBC) [Entitic mass] 30.1 pg Normal 26.0-34.0 [facility] Comment on above: Order Comment: Speci men Type: BLOOD SPECIMEN Ordering Facility: [facility] Address: [address] [place] [address] Performed By: #### 1 4196-0, 76610-2 #### [facility] CLIA [id number] [address] [place] [address] 98221 MCHC (RBC) [Mass/Vol] 31.5 g/dL Normal 30.5-36.0 [facility] Comment on above: Order Comment: Speci men Type: BLOOD SPECIMEN Ordering Facility: [facility] Address: [address] [place] [address] Performed By: #### 1 4196-0, 89962-5 #### [facility] CLIA [id number] [address] [place] [address] 25632 MCV (RBC) [Entitic vol] 95.4 fL Normal 80.0-100.0 [facility] Comment on above: Order Comment: Speci men Type: BLOOD SPECIMEN Ordering Facility: [facility] Address: [address] [place] [address] Performed By: #### 1 4196-0, 12063-5 #### [facility] CLIA [id number] [address] [place] [address] 53304 Monocytes (Bld) [#/Vol] 0.60 10*3/uL Normal <0.87 [facility] Comment on above: Order Comment: Speci men Type: BLOOD SPECIMEN Ordering Facility: [facility] Address: [address] [place] [address] Performed By: #### 1 4196-0, 48471-5 #### [facility] CLIA [id number] [address] [place] [address] 21564 Monocytes/100 WBC (Bld) 6.0 % Normal [facility] Comment on above: Order Comment: Speci men Type: BLOOD SPECIMEN Ordering Facility: [facility] Address: [address] [place] [address] Performed By: #### 1 4196-0, 10964-9 #### [facility] CLIA [id number] [address] [place] [address] 58055 Neutrophils (Bld) [#/Vol] 7.27 10*3/uL Normal 1.45-7.50 [facility] Comment on above: Order Comment: Speci men Type: BLOOD SPECIMEN Ordering Facility: [facility] Address: [address] Performed By: #### 1 4196-0, 72741-9 #### [facility] CLIA [id number] [address] [place] [address] 97255 Neutrophils/100 WBC (Bld) 73.2 % Normal [facility] Comment on above: Order Comment: Speci men Type: BLOOD SPECIMEN Ordering Facility: [facility] Address: [address] [place] [address] Performed By: #### 1 4196-0, 65355-1 #### [facility] CLIA [id number] [address] [place] [address] 59492 Nucleated RBC (Bld) [#/Vol] 10*3/uL Normal <0.01 [facility] Comment on above: Order Comment: Speci men Type: BLOOD SPECIMEN Ordering Facility: [facility] Address: [address] [place] [address] Performed By: #### 1 4196-0, 51849-1 #### [facility] CLIA [id number] [address] [place] [address] 90165 Nucleated RBC/100 WBC (Bld) [Ratio] 0.0 /100 WBC Normal [facility] Comment on above: Order Comment: Speci men Type: BLOOD SPECIMEN Ordering Facility: [facility] Address: [address] [place], [place] [address] Performed By: #### 1 4196-0, 34263-2 #### [facility] CLIA [id number] [address] [place] [address] 41393 Platelet mean volume (Bld) [Entitic vol] 9.1 fL Normal 9.0-12.7 [facility] Comment on above: Order Comment: Speci men Type: BLOOD SPECIMEN Ordering Facility: [facility] Address: [address] [place] [address] Performed By: #### 1 4196-0, 37006-8 #### [facility] CLIA [id number] [address] [place] [address] Platelets (Bld) [#/Vol] 339 10*3/uL Normal 150-400 [facility] Comment on above: Order Comment: Speci men Type: BLOOD SPECIMEN Ordering Facility: [facility] Address: [address] [place] [address] Performed By: #### 1 4196-0, 87251-2 #### [facility] CLIA [id number] [address] [place] [address] 57306 RBC (Bld) [#/Vol] 3.29 10*6/uL Low 3.90-5.20 [facility] Comment on above: Order Comment: Speci men Type: BLOOD SPECIMEN Ordering Facility: [facility] Address: [address] [place] [address] Performed By: #### 1 4196-0, 99807-9 #### [facility] CLIA [id number] [address] [place], [place] [address] WBC (Bld) [#/Vol] 9.94 10*3/uL Normal 3.70-11.00 [facility] Comment on above: Order Comment: Speci men Type: BLOOD SPECIMEN Ordering Facility: [facility] Address: [address] [place] [address] Performed By: #### 1 4196-0, 68447-9 #### [facility] CLIA [id number] [address] [place] [address] 75125 Abs Immature Gran 0.07 k/uL <0.10 k/uL [facility] Basophils (Bld) [#/Vol] 0.10 10*3/uL <0.11 k/uL [facility] Basophils/100 WBC (Bld) 1.0 % [facility] Differential cell count method Nom (Bld) Auto [facility] Eosinophils (Bld) [#/Vol] 0.52 10*3/uL High <0.46 k/uL [facility] Eosinophils/100 WBC (Bld) 5.2 % [facility] Erythrocyte distribution width (RBC) [Ratio] 14.1 % 11.5 - 15.0 % [facility] Hematocrit (Bld) [Volume fraction] 31.4 % Low 36.0 - 46.0 % [facility] Hemoglobin (Bld) [Mass/Vol] 9.9 g/dL Low 11.5 - 15.5 g/dL [facility] Immature Gran % 0.7 % [facility] Lymphocytes (Bld) [#/Vol] 1.38 10*3/uL 1.00 - 4.00 k/uL [facility] Lymphocytes/100 WBC (Bld) 13.9 % [facility] MCH (RBC) [Entitic mass] 30.1 pg 26.0 - 34.0 pg [facility] MCHC (RBC) [Mass/Vol] 31.5 g/dL 30.5 - 36.0 g/dL [facility] MCV (RBC) [Entitic vol] 95.4 fL 80.0 - 100.0 fL [facility] Monocytes (Bld) [#/Vol] 0.60 10*3/uL <0.87 k/uL [facility] Monocytes/100 WBC (Bld) 6.0 % [facility] Neutrophils (Bld) [#/Vol] 7.27 10*3/uL 1.45 - 7.50 k/uL [facility] Neutrophils/100 WBC (Bld) 73.2 % [facility] Nucleated RBC (Bld) [#/Vol] 10*3/uL <0.01 k/uL [facility] Nucleated RBC/100 WBC (Bld) [Ratio] 0.0 /100 WBC [facility] Platelet mean volume (Bld) [Entitic vol] 9.1 fL 9.0 - 12.7 fL [facility] Platelets (Bld) [#/Vol] 339 10*3/uL 150 - 400 k/uL [facility] RBC (Bld) [#/Vol] 3.29 10*6/uL Low 3.90 - 5.2 0 m/uL [facility] WBC (Bld) [#/Vol] 9.94 10*3/uL 3.70 - 11.00 k/uL [facility] CNOVSPon 10-16-2021 CNOVSP Visit (SP) Office ([facility]) ALYCE DAVID ([id number]) 1955 F Date Time Provider Department 10/16/21 [...] evaluation of anemia. Briefly, she presented to [facility] with proximal muscle weakness and inability [...] are from cancer. She lives alone in [place], [place] but now has her son for [...] 2 wee (more content not included)... Normal [facility] CRP SerPl-mCncon 10-16-2021 CRP [Mass/Vol] 1.5 mg/dL High <0.9 [facility] Comment on above: Order Comment: Romeo vasquez Type: BLOOD SPECIMEN Ordering Facility: [facility] Address: [address] [place] [address] Performed By: #### K RS #### [facility] CLIA [id number] [address] [place] [address] [facility] Comprehensive metabolic 2000 panelon 10-16-2021 Albumin [Mass/Vol] 3.9 g/dL Normal 3.9-4.[address] [facility] Comment on above: Order Comment: Romeo vasquez Type: BLOOD SPECIMEN Ordering Facility: [facility] Address: [address] [place] [address] Performed By: #### 2 4323-8 #### [facility] CLIA [id number] [address] [place], [place] [address] ALP [Catalytic activity/Vol] 106 U/L Normal 34-123 [facility] Comment on above: Order Comment: Romeo vasquez Type: BLOOD SPECIMEN Ordering Facility: [facility] Address: [address] [place] [address] Performed By: #### 2 4323-8 #### [facility] CLIA [id number] [address] [place] [address] 14485 ALT [Catalytic activity/Vol] 15 U/L Normal 7-38 [facility] Comment on above: Order Comment: Speci men Type: BLOOD SPECIMEN Ordering Facility: [facility] Address: [address] [address] Performed By: #### 2 4323-8 #### [facility] CLIA [id number] [address] [place] [address] 64863 Anion gap [Moles/Vol] 10 mmol/L Normal 9-18 [facility] Comment on above: Order Comment: Speci men Type: BLOOD SPECIMEN Ordering Facility: [facility] Address: [address] [address] Performed By: #### 2 4323-8 #### [facility] CLIA [id number] [address] [place] [address] 89978 AST [Catalytic activity/Vol] 24 U/L Normal 13-35 [facility] Comment on above: Order Comment: Speci men Type: BLOOD SPECIMEN Ordering Facility: [facility] Address: [address] [address] Performed By: #### 2 4323-8 #### [facility] CLIA [id number] [address] [place] [address] 48817 Bilirubin [Mass/Vol] 0.2 mg/dL Normal 0.2-1.3 [facility] Comment on above: Order Comment: Speci men Type: BLOOD SPECIMEN Ordering Facility: [facility] Address: [address] [address] Performed By: #### 2 4323-8 #### [facility] CLIA [id number] [address] [place] [address] 37428 Calcium [Mass/Vol] 9.8 mg/dL Normal 8.5-10.[address] [facility] Comment on above: Order Comment: Speci men Type: BLOOD SPECIMEN Ordering Facility: [facility] Address: [facility] [place] [address] Performed By: #### 2 4323-8 #### [facility] CLIA [id number] [address] [place] [address] 53514 Chloride [Moles/Vol] 93 mmol/L Low 97-105 [facility] Comment on above: Order Comment: Speci men Type: BLOOD SPECIMEN Ordering Facility: [facility] Address: [address] [place] [address] Performed By: #### 2 4323-8 #### [facility] CLIA [id number] [address] [place] [address] 16428 CO2 [Moles/Vol] 31 mmol/L High 22-30 [facility] Comment on above: Order Comment: Speci men Type: BLOOD SPECIMEN Ordering Facility: [facility] Address: [address] [place] [address] Performed By: #### 2 4323-8 #### [facility] CLIA [id number] [address] [place] [address] 03706 Creatinine [Mass/Vol] 0.61 mg/dL Normal 0.58-0.96 [facility] Comment on above: Order Comment: Speci men Type: BLOOD SPECIMEN Ordering Facility: [facility] Address: [address] [place] [address] Performed By: #### 2 4323-8 #### [facility] CLIA [id number] [address] [place], [place] [address] ESTIMATED GLOMERULAR FILTRATION RATE 98 mL/min/1.73m??? Normal >=60 [facility] Comment on above: Order Comment: Speci men Type: BLOOD SPECIMEN Ordering Facility: [facility] Address: [address] [place] [address] Result Comment: Christelle mated Glomerular Filtration Rate [...] GFR. Performed By: #### 2 4323-8 #### [facility] CLIA [id number] [address] [place] [address] Glucose [Mass/Vol] 101 mg/dL High 74-[address] [facility] Comment on above: Order Comment: Romeo vasquez Type: BLOOD SPECIMEN Ordering Facility: [facility] Address: [address] [place], [place] [address] Result Comment: The [place] [employer] (ADA) provides guidance for cutoff [...] Standards of Medical Care in Diabetes 2016, [place] [employer]. Diabetes Care. 2016.39(Suppl 1). Performed By: #### 2 4323-8 #### [facility] CLIA [id number] [address] [place] [address] 25957 Potassium [Moles/Vol] 4.2 mmol/L Normal 3.7-5.1 [facility] Comment on above: Order Comment: Romeo vasquez Type: BLOOD SPECIMEN Ordering Facility: [facility] Address: [address] [place], [place] [address] Performed By: #### 2 4323-8 #### [facility] CLIA [id number] [address] [place] [address] 52022 Protein [Mass/Vol] 7.2 g/dL Normal 6.3-8.[address] [facility] Comment on above: Order Comment: Romeo vasquez Type: BLOOD SPECIMEN Ordering Facility: [facility] Address: [address] [place], [place] [address] Performed By: #### 2 4323-8 #### [facility] CLIA [id number] [address] [place] [address] 04115 Sodium [Moles/Vol] 134 mmol/L Low 136-[address] [facility] Comment on above: Order Comment: Speci men Type: BLOOD SPECIMEN Ordering Facility: [facility] Address: [address] [address] Performed By: #### 2 4323-8 #### [facility] CLIA [id number] [address] [place] [address] 40957 Urea nitrogen [Mass/Vol] 13 mg/dL Normal 7-21 [facility] Comment on above: Order Comment: Speci men Type: BLOOD SPECIMEN Ordering Facility: [facility] Address: [address] [address] Performed By: #### 2 4323-8 #### [facility] CLIA [id number] [address] [place] [address] Albumin [Mass/Vol] 3.9 g/dL 3.9 - 4.9 g/dL [facility] ALP [Catalytic activity/Vol] 106 U/L 34 - 123 U/L [facility] ALT [Catalytic activity/Vol] 15 U/L 7 - 38 U/L [facility] Anion gap [Moles/Vol] 10 mmol/L 9 - 18 mmol/L [facility] AST [Catalytic activity/Vol] 24 U/L 13 - 35 U/L [facility] Bilirubin [Mass/Vol] 0.2 mg/dL 0.2 - 1 .3 mg/dL [facility] Calcium [Mass/Vol] 9.8 mg/dL 8.5 - 10. 2 mg/dL [facility] Chloride [Moles/Vol] 93 mmol/L Low 97 - 10 5 mmol/L [facility] CO2 [Moles/Vol] 31 mmol/L High 22 - 30 mmol/L [facility] Creatinine [Mass/Vol] 0.61 mg/dL 0.58 - 0.96 mg/dL [facility] Estimated Glomerular Filtration Rate 98 mL/min/1.73m >=60 mL/min/1.73 m [facility] Glucose [Mass/Vol] 101 mg/dL High 74 - 99 mg/dL [facility] Potassium [Moles/Vol] 4.2 mmol/L 3.7 - 5.1 mmol/L [facility] Protein [Mass/Vol] 7.2 g/dL 6.3 - 8.0 g/dL [facility] Sodium [Moles/Vol] 134 mmol/L Low 136 - 144 mmol/L [facility] Urea nitrogen [Mass/Vol] 13 mg/dL 7 - 21 mg/dL [facility] ESR Westergren method (Bld) [Velocity]on 10-16-2021 ESR (Bld) [Velocity] 55 mm/h High 0-20 [facility] Comment on above: Order Comment: Speci men Type: BLOOD SPECIMEN Ordering Facility: [facility] Address: [address] [place] [address] Performed By: #### M PNP #### [facility] CLIA [id number] [address] [place] [address] [place] #### 05267-6 #### [facility] CLIA [id number] [address] [place] [address] 11771 FERRITIN BLDon 10-16-2021 Ferritin [Mass/Vol] 1150.0 ng/mL High 14.7-205.1 [facility] Comment on above: Order Comment: Speci men Type: BLOOD SPECIMEN Ordering Facility: [facility] Address: [address] [place], [place] [address] Performed By: #### K LFRS #### [facility] CLIA [id number] [address] [place] [address] [place] Haptoglob SerPl-mCncon 10-16 Haptoglobin [Mass/Vol] 276 mg/dL High 31-238 [facility] Comment on above: Order Comment: Speci men Type: BLOOD SPECIMEN Ordering Facility: [facility] Address: [address] [place], [place] [address] Performed By: #### K LFRS #### [facility] CLIA [id number] [address] [place] [address] [place] IMMUNOFIXATION SCREEN, SERUM on 10-16-2021 MPA RESULT No M protein is identified. Normal No M protein is identified. [facility] Comment on above: Order Comment: Speci men Type: BLOOD SPECIMEN Ordering Facility: [facility] Address: [address] [place], [place] [address] Performed By: #### M PNP #### [facility] CLIA [id number] [address] [place] [address] [place] #### 41925-8 #### [facility] CLIA [id number] [address] [place], [place] [address] STAFF REVIEW ([facility]) Reviewed by Marie Rebollar MD [facility] Comment on above: Order Comment: Speci men Type: BLOOD SPECIMEN Ordering Facility: [facility] Address: [address] [place] [address] Performed By: #### M PNP #### [facility] CLIA [id number] [address] [place] [address] [place] #### 05405-2 #### [facility] CLIA [id number] [address] [place], [place] [address] IMMUNOGLOBULINS GAMon 2021 IgA [Mass/Vol] 246 mg/dL Normal 70-400 [facility] Comment on above: Order Comment: Speci men Type: BLOOD SPECIMEN Ordering Facility: [facility] Address: [address] [place], [place] [address] Performed By: #### S ERIMM #### [facility] CLIA [id number] [address] [place] [address] [place] IgG [Mass/Vol] 949 mg/dL Normal 700-1,600 [facility] Comment on above: Order Comment: Speci men Type: BLOOD SPECIMEN Ordering Facility: [facility] Address: [address] [place] [address] Performed By: #### S ERIMM #### [facility] CLIA [id number] [address] [place] [address] [place] IgM [Mass/Vol] 103 mg/dL Normal 40-230 [facility] Comment on above: Order Comment: Speci men Type: BLOOD SPECIMEN Ordering Facility: [facility] Address: [address] [place], [place] [address] Performed By: #### S ERIMM #### [facility] CLIA [id number] [address] [place] [address] [place] IRON + TIBCon 10-16-2021 Iron [Mass/Vol] 48 ug/dL Normal 41-186 [facility] Comment on above: Order Comment: Speci men Type: BLOOD SPECIMEN Ordering Facility: [facility] Address: [address] [place] [address] Performed By: #### K LFRS #### [facility] CLIA [id number] [address] [place] [address] [place] Iron binding capacity [Mass/Vol] 310 ug/dL Normal 232-386 [facility] Comment on above: Order Comment: Speci men Type: BLOOD SPECIMEN Ordering Facility: [facility] Address: [address] [place], [place] [address] Performed By: #### K LFRS #### [facility] CLIA [id number] [address] [place] [address] [place] Iron/TIBC [Molar ratio] 15 % Normal 15-57 [facility] Comment on above: Order Comment: Speci men Type: BLOOD SPECIMEN Ordering Facility: [facility] Address: [address] [place], [place] [address] Performed By: #### K LFRS #### [facility] CLIA [id number] [address] [place] [address] [place] KAPPA/OBRIEN,FREE,SERon 2021 Immunoglobulin light chains.kappa.free (S) [Mass/Vol] 40.6 mg/L High 3.3-19.4 [facility] Comment on above: Order Comment: Speci men Type: BLOOD SPECIMEN Ordering Facility: [facility] Address: [address] [place] [address] Performed By: #### K LFRS #### [facility] CLIA [id number] [address] [place] [address] Immunoglobulin light chains.kappa/Immunoglob ulin light chains.lambda (S) [Mass ratio] 0.99 Normal 0.26-1.65 [facility] Comment on above: Order Comment: Specksenia vasquez Type: BLOOD SPECIMEN Ordering Facility: [facility] Address: [address] [place] [address] Performed By: #### K LFRS #### [facility] [place] [id number] [address] [place] [address] OF [facility] Immunoglobulin light chains.lambda.free [Mass/Vol] 41.0 mg/L High 5.7-26.3 [facility] Comment on above: Order Comment: Romeo vasquez Type: BLOOD SPECIMEN Ordering Facility: [facility] Address: [address] [place] [address] Performed By: #### K LFRS #### [facility] CLIA [id number] [address] [place] [address] STATES OF [facility] PT panel Coag (PPP)on 2021 INR Coag (PPP) [Relative time] 1.1 {INR} Normal 0.9-1.3 [facility] Comment on above: Order Comment: Romeo vasquez Type: BLOOD SPECIMEN Ordering Facility: [facility] Address: [address] [place] [address] Result Comment: Maldonado min K Antagonist (VKA) Therapeutic Range: INR 2 to 3 (Target INR of 2.5) Note: For patients treated with VKA drugs, such as warfarin, the [place] [employer] 2012 Guideline recommends [...] to 3.5 (target INR of 3). Sohan BOLANOS, et al. Chest 2012, 141:7S-47S Flower BECKER, et al. [facility] 2017, 70: 252-289 Performed By: #### M PNP #### [facility] CLIA [id number] [address] [place] [address] [place] #### 83847-2 #### [facility] CLIA [id number] [address] [place] [address] PT Coag (PPP) [Time] 12.0 s Normal 9.7-13.0 [facility] Comment on above: Order Comment: Romeo vasquez Type: BLOOD SPECIMEN Ordering Facility: [facility] Address: [address] [place] [address] Performed By: #### M PNP #### [facility] CLIA [id number] [address] [place] [address] #### 41705-8 #### [facility] CLIA [id number] [address] [place] [address] RETIC COUNTon 10-16-2021 Reticulocytes (Bld) [#/Vol] 0.0001 10*3/uL High 0.018 - 0.100 M/uL [facility] Retics #on 10-16-2021 Reticulocytes (Bld) [#/Vol] 0.0001 10*3/uL High 0.018-0.100 [facility] Comment on above: Order Comment: Romeo vasquez Type: BLOOD SPECIMEN Ordering Facility: [facility] Address: [address] [place] [address] Performed By: #### 1 4196-0, 69026-0 #### [facility] CLIA [id number] [address] [place] [id number] Reticulocytes (Bld) [#/Vol]o n 10-16-2021 Reticulocytes/100 RBC (Bld) 3.1 % High 0.4-2.0 [facility] Comment on above: Order Comment: Speci men Type: BLOOD SPECIMEN Ordering Facility: [facility] Address: [address] [place] [address] Performed By: #### 1 4196-0, 95269-9 #### [facility] CLIA [id number] [address] [place] [id number] Reticulocytes/100 RBC (Bld) 3.1 % High 0.4 - 2.0 % [facility] VITAMIN B12 BLOODon 10-17-19 Cobalamin (Vitamin B12) [Mass/Vol] 604 pg/mL Normal 232-1,245 [facility] [facility] Comment on above: Order Comment: Speci men Type: BLOOD SPECIMEN Ordering Facility: [facility] Address: [address] [place] [address] Performed By: #### M PNP #### [facility] CLIA [id number] [address] [place] [address] #### [id number] #### [facility] CLIA [id number] [address] [place] [id number] XR CHEST 2V FRONTAL/LATon XR CHEST 2V [...] any questions regarding this interpretation, please call [phone]. If you are unable to reach us at the number above, please feel free to contact [facility] at [phone]. [id number] N Normal [facility] aPTT PPPon 10-16-2021 aPTT Coag (PPP) [Time] 27.9 s Normal 23.0-32.4 [facility] Comment on above: Order Comment: Speci men Type: BLOOD SPECIMEN Ordering Facility: [facility] Address: [address] [place] [address] Performed By: #### M PNP #### [facility] CLIA [id number] [address] [place] [address] [place] #### [id number] #### [facility] CLIA [id number] [address] [place] [address] Basic Metabolic Panelon 09-19 Calcium [Mass/Vol] 9.3 mg/dL Normal 8.2-10.2 [facility] Comment on above: Order Comment: PT IS NON FASTING Comment Results to PCP Performed By: #### C K, ESR, BMP, CRP #### [place] [address] [place] #### MYOG, ALDOLASE #### [facility] , Chloride [Moles/Vol] 92 mmol/L Low 95-114 [facility] Comment on above: Order Comment: PT IS NON FASTING Comment Results to PCP Performed By: #### C K, ESR, BMP, CRP #### [facility] [address] [place] [address] [place] #### MYOG, ALDOLASE #### [facility] , CO2 [Moles/Vol] 25.3 mmol/L Normal 22.0-30.0 [facility] Comment on above: Order Comment: PT IS NON FASTING Comment Results to PCP Performed By: #### C K, ESR, BMP, CRP #### [facility] [address] [place] [address] [place] #### MYOG, ALDOLASE #### [facility] , Creatinine [Mass/Vol] 0.58 mg/dL Normal 0.44-1.03 [facility] Comment on above: Order Comment: PT IS NON FASTING Comment Results to PCP Performed By: #### C K, ESR, BMP, CRP #### [place] [address] [place] #### MYOG, ALDOLASE #### [facility] , Estimated GFR ( Radha > 60 [facility] Comment on above: Order Comment: PT IS NON FASTING Comment Results to PCP Result Comment: GFR estimated reference range: According to KDOQI guidelines, <60 ml/min/1.73m2 is sufficient to diagnose a patient with chronic kidney disease. Performed By: #### C K, ESR, BMP, CRP #### [facility] [address] [place] [address] [place] #### MYOG, ALDOLASE #### [facility] , Estimated GFR (Non- Am > 60 [facility] Comment on above: Order Comment: PT IS NON FASTING Comment Results to PCP Performed By: #### C K, ESR, BMP, CRP #### [facility] [address] [place] [address] [place] #### MYOG, ALDOLASE #### [facility] , Glucose [Mass/Vol] 126 mg/dL High 70-100 [facility] Comment on above: Order Comment: PT IS NON FASTING Comment Results to PCP Result Comment: [place] Glucose Reference Range is dependent on time and content of last meal. Glucose of more than 200 mg/dL in a nonstressed, ambulatory subject supports the diagnosis of Diabetes Mellitus. ADA recommended reference range Performed By: #### C K, ESR, BMP, CRP #### [facility] [address] [place] [address] #### MYOG, ALDOLASE #### [facility] , Potassium [Moles/Vol] 3.9 mmol/L Normal 3.5-5.1 [facility] Comment on above: Order Comment: PT IS NON FASTING Comment Results to PCP Performed By: #### C K, ESR, BMP, CRP #### [address] #### MYOG, ALDOLASE #### [facility] , Sodium [Moles/Vol] 131 mmol/L Low 136-146 [facility] Comment on above: Order Comment: PT IS NON FASTING Comment Results to PCP Performed By: #### C K, ESR, BMP, CRP #### [facility] [address] [place] [address] #### MYOG, ALDOLASE #### [facility] , Urea nitrogen [Mass/Vol] 11 mg/dL Normal 9-23 [facility] Comment on above: Order Comment: PT IS NON FASTING Comment Results to PCP Performed By: #### C K, ESR, BMP, CRP #### [place] [address] [place] #### MYOG, ALDOLASE #### [facility] , Complete Blood Count Auto Di ffon 10-09-2021 Basophils (Bld) [#/Vol] 0.0 10*3/uL Normal 0.0-0.2 [facility] Comment on above: Order Comment: Comme nt Results to PCP Result Comment: PERF ORMED BY: [place] [address] PATHOLOGIST WHEEL ALIGNMENT TECHNICIAN IDANIA WHITESIDE M.D. Performed By: #### C K, ESR, BMP, CRP #### [place] [address] [place] #### MYOG, ALDOLASE #### [facility] , Basophils/100 WBC (Bld) 0.7 % Normal . [facility] Comment on above: Order Comment: Comme nt Results to PCP Performed By: #### C K, ESR, BMP, CRP #### [address] #### MYOG, ALDOLASE #### [facility] , Eosinophils (Bld) [#/Vol] 0.4 10*3/uL Normal 0.0-0.45 [facility] Comment on above: Order Comment: Comme nt Results to PCP Performed By: #### C K, ESR, BMP, CRP #### [place] [address] [place] #### MYOG, ALDOLASE #### [facility] , Eosinophils/100 WBC (Bld) 5.8 % Normal . [facility] Comment on above: Order Comment: Comme nt Results to PCP Performed By: #### C K, ESR, BMP, CRP #### [place] [address] [place] #### MYOG, ALDOLASE #### [facility] , Erythrocyte distribution width (RBC) [Ratio] 15.5 % High 11.9-15.3 [facility] Comment on above: Order Comment: Comme nt Results to PCP Performed By: #### C K, ESR, BMP, CRP #### [place] [address] [place] #### MYOG, ALDOLASE #### [facility] , Hematocrit (Bld) [Volume fraction] 31.3 % Low 34.0-46.4 [facility] Comment on above: Order Comment: Comme nt Results to PCP Performed By: #### C K, ESR, BMP, CRP #### [facility] [address] [place] [address] #### MYOG, ALDOLASE #### [facility] , Hemoglobin (Bld) [Mass/Vol] 10.0 g/dL Low 11.8-15.4 [facility] Comment on above: Order Comment: Comme nt Results to PCP Performed By: #### C K, ESR, BMP, CRP #### [address] #### MYOG, ALDOLASE #### [facility] , Lymphocytes (Bld) [#/Vol] 0.9 10*3/uL Low 1.00-4.8 [facility] Comment on above: Order Comment: Comme nt Results to PCP Performed By: #### C K, ESR, BMP, CRP #### [address] #### MYOG, ALDOLASE #### [facility] , Lymphocytes/100 WBC (Bld) 15.5 % Normal . [facility] Comment on above: Order Comment: Comme nt Results to PCP Performed By: #### C K, ESR, BMP, CRP #### [facility] [address] [place] [address] #### MYOG, ALDOLASE #### [facility] , MCH (RBC) [Entitic mass] 30.5 pg Normal 24.7-34.3 [facility] Comment on above: Order Comment: Comme nt Results to PCP Performed By: #### C K, ESR, BMP, CRP #### [facility] [address] [place] [address] [place] #### MYOG, ALDOLASE #### [facility] , MCV (RBC) [Entitic vol] 95.4 fL Normal 80-100 [facility] Comment on above: Order Comment: Comme nt Results to PCP Performed By: #### C K, ESR, BMP, CRP #### [place] [address] [place] #### MYOG, ALDOLASE #### [facility] , Mean Corpuscular HGB Conc 32.0 g/dL Normal 32.0-35.0 [facility] Comment on above: Order Comment: Comme nt Results to PCP Performed By: #### C K, ESR, BMP, CRP #### [place] [address] [place] #### MYOG, ALDOLASE #### [facility] , Monocytes (Bld) [#/Vol] 0.3 10*3/uL Normal 0.0-0.8 [facility] Comment on above: Order Comment: Comme nt Results to PCP Performed By: #### C K, ESR, BMP, CRP #### [place] [address] [place] #### MYOG, ALDOLASE #### [facility] , Monocytes/100 WBC (Bld) 5.6 % Normal . [facility] Comment on above: Order Comment: Comme nt Results to PCP Performed By: #### C K, ESR, BMP, CRP #### [address] #### MYOG, ALDOLASE #### [facility] , Neutrophils (Bld) [#/Vol] 4.4 10*3/uL Normal 1.8-7.7 [facility] Comment on above: Order Comment: Comme nt Results to PCP Performed By: #### C K, ESR, BMP, CRP #### [facility] [address] [place] [address] [place] #### MYOG, ALDOLASE #### [facility] , Neutrophils/100 WBC (Bld) 72.4 % Normal . [facility] Comment on above: Order Comment: Comme nt Results to PCP Performed By: #### C K, ESR, BMP, CRP #### [address] #### MYOG, ALDOLASE #### [facility] , Nucleated RBC/100 WBC (Bld) [Ratio] 0.1 % Normal 0-0.5 [facility] Comment on above: Order Comment: Comme nt Results to PCP Performed By: #### C K, ESR, BMP, CRP #### [facility] [address] [place] [address] #### MYOG, ALDOLASE #### [facility] , Platelet mean volume (Bld) [Entitic vol] 7.9 fL Normal 6.3-10.7 [facility] Comment on above: Order Comment: Comme nt Results to PCP Performed By: #### C K, ESR, BMP, CRP #### [address] #### MYOG, ALDOLASE #### [facility] , Platelets (Bld) [#/Vol] 390 10*3/uL Normal 150-450 [facility] Comment on above: Order Comment: Comme nt Results to PCP Performed By: #### C K, ESR, BMP, CRP #### [address] #### MYOG, ALDOLASE #### [facility] , RBC (Bld) [#/Vol] 3.28 10*6/uL Low 3.60-5.00 [facility] Comment on above: Order Comment: Comme nt Results to PCP Performed By: #### C K, ESR, BMP, CRP #### [facility] [address] [place] [address] [place] #### MYOG, ALDOLASE #### [facility] , WBC (Bld) [#/Vol] 6.1 10*3/uL Normal 4.5-11.0 [facility] Comment on above: Order Comment: Comme nt Results to PCP Performed By: #### C K, ESR, BMP, CRP #### [address] #### MYOG, ALDOLASE #### [facility] , Magnesiumon 10-09-2021 Magnesium [Mass/Vol] 1.3 mg/dL Low 1.6-2.6 [facility] Comment on above: Order Comment: PT IS NON FASTING Comment Results to PCP Result Comment: PERF ORMED BY: [place] [address] PATHOLOGIST WHEEL ALIGNMENT TECHNICIAN IDANIA WHITESIDE M.D. Performed By: #### C K, ESR, BMP, CRP #### [address] #### MYOG, ALDOLASE #### [facility] , Complete Blood Count Auto Di ffon 09-30-2021 Basophils (Bld) [#/Vol] 0.1 10*3/uL Normal 0.0-0.2 [facility] Comment on above: Result Comment: PERF ORMED BY: [place] [address] PATHOLOGIST WHEEL ALIGNMENT TECHNICIAN IDANIA WHITESIDE M.D. Performed By: #### C K, ESR, BMP, CRP #### [address] #### MYOG, ALDOLASE #### [facility] , Basophils/100 WBC (Bld) 1.0 % Normal . [facility] Comment on above: Performed By: #### C K, ESR, BMP, CRP #### [place] [address] [place] #### MYOG, ALDOLASE #### [facility] , Eosinophils (Bld) [#/Vol] 0.1 10*3/uL Normal 0.0-0.45 [facility] Comment on above: Performed By: #### C K, ESR, BMP, CRP #### [facility] [address] #### MYOG, ALDOLASE #### [facility] , Eosinophils/100 WBC (Bld) 1.3 % Normal . [facility] Comment on above: Performed By: #### C K, ESR, BMP, CRP #### [address] #### MYOG, ALDOLASE #### [facility] , Erythrocyte distribution width (RBC) [Ratio] 15.0 % Normal 11.9-15.3 [facility] Comment on above: Performed By: #### C K, ESR, BMP, CRP #### [address] #### MYOG, ALDOLASE #### [facility] , Hematocrit (Bld) [Volume fraction] 30.5 % Low 34.0-46.4 [facility] Comment on above: Performed By: #### C K, ESR, BMP, CRP #### [address] #### MYOG, ALDOLASE #### [facility] , Hemoglobin (Bld) [Mass/Vol] 9.7 g/dL Low 11.8-15.4 [facility] Comment on above: Performed By: #### C K, ESR, BMP, CRP #### [place] [address] [place] #### MYOG, ALDOLASE #### [facility] , Lymphocytes (Bld) [#/Vol] 0.8 10*3/uL Low 1.00-4.8 [facility] Comment on above: Performed By: #### C K, ESR, BMP, CRP #### [place] [address] [place] #### MYOG, ALDOLASE #### [facility] , Lymphocytes/100 WBC (Bld) 11.5 % Normal . [facility] Comment on above: Performed By: #### C K, ESR, BMP, CRP #### [place] [address] [place] #### MYOG, ALDOLASE #### [facility] , MCH (RBC) [Entitic mass] 30.2 pg Normal 24.7-34.3 [facility] Comment on above: Performed By: #### C K, ESR, BMP, CRP #### [facility] [address] [place] [address] [place] #### MYOG, ALDOLASE #### [facility] , MCV (RBC) [Entitic vol] 94.6 fL Normal 80-100 [facility] Comment on above: Performed By: #### C K, ESR, BMP, CRP #### [address] #### MYOG, ALDOLASE #### [facility] , Mean Corpuscular HGB Conc 31.9 g/dL Low 32.0-35.0 [facility] Comment on above: Performed By: #### C K, ESR, BMP, CRP #### [facility] [address] [place] [address] #### MYOG, ALDOLASE #### [facility] , Monocytes (Bld) [#/Vol] 0.6 10*3/uL Normal 0.0-0.8 [facility] Comment on above: Performed By: #### C K, ESR, BMP, CRP #### [place] [address] [place] #### MYOG, ALDOLASE #### [facility] , Monocytes/100 WBC (Bld) 8.5 % Normal . [facility] Comment on above: Performed By: #### C K, ESR, BMP, CRP #### [place] [address] [place] #### MYOG, ALDOLASE #### [facility] , Neutrophils (Bld) [#/Vol] 5.7 10*3/uL Normal 1.8-7.7 [facility] Comment on above: Performed By: #### C K, ESR, BMP, CRP #### [address] #### MYOG, ALDOLASE #### [facility] , Neutrophils/100 WBC (Bld) 77.7 % Normal . [facility] Comment on above: Performed By: #### C K, ESR, BMP, CRP #### [address] #### MYOG, ALDOLASE #### [facility] , Nucleated RBC/100 WBC (Bld) [Ratio] 0.0 % Normal 0-0.5 [facility] Comment on above: Performed By: #### C K, ESR, BMP, CRP #### [address] #### MYOG, ALDOLASE #### [facility] , Platelet mean volume (Bld) [Entitic vol] 7.4 fL Normal 6.3-10.7 [facility] Comment on above: Performed By: #### C K, ESR, BMP, CRP #### [address] #### MYOG, ALDOLASE #### [facility] , Platelets (Bld) [#/Vol] 251 10*3/uL Normal 150-450 [facility] Comment on above: Performed By: #### C K, ESR, BMP, CRP #### [place] [address] [place] #### MYOG, ALDOLASE #### [facility] , RBC (Bld) [#/Vol] 3.23 10*6/uL Low 3.60-5.00 [facility] Comment on above: Performed By: #### C K, ESR, BMP, CRP #### [facility] [address] [place] [address] [place] #### MYOG, ALDOLASE #### [facility] , WBC (Bld) [#/Vol] 7.3 10*3/uL Normal 4.5-11.0 [facility] Comment on above: Performed By: #### C K, ESR, BMP, CRP #### [facility] [address] [place] [address] [place] #### MYOG, ALDOLASE #### [facility] , Comprehensive Metabolic Pane huber 09-30-2021 Albumin [Mass/Vol] 2.6 g/dL Low 3.2-5.5 [facility] Comment on above: Performed By: #### C K, ESR, BMP, CRP #### [address] #### MYOG, ALDOLASE #### [facility] , Albumin/Globulin [Mass ratio] 0.7 {ratio} Normal [facility] Comment on above: Performed By: #### C K, ESR, BMP, CRP #### [facility] [address] [place] [address] [place] #### MYOG, ALDOLASE #### [facility] , ALP [Catalytic activity/Vol] 82 U/L Normal 32-92 [facility] Comment on above: Performed By: #### C K, ESR, BMP, CRP #### [facility] [address] [place] [address] [place] #### MYOG, ALDOLASE #### [facility] , ALT [Catalytic activity/Vol] 21 U/L Normal 10-60 [facility] Comment on above: Performed By: #### C K, ESR, BMP, CRP #### [place] [address] [place] #### MYOG, ALDOLASE #### [facility] , AST [Catalytic activity/Vol] 38 U/L Normal 10-42 [facility] Comment on above: Performed By: #### C K, ESR, BMP, CRP #### [facility] [address] [place] [address] [place] #### MYOG, ALDOLASE #### [facility] , Bilirubin [Mass/Vol] 0.5 mg/dL Normal 0.3-1.2 [facility] Comment on above: Performed By: #### C K, ESR, BMP, CRP #### [place] [address] [place] #### MYOG, ALDOLASE #### [facility] , Calcium [Mass/Vol] 8.5 mg/dL Normal 8.2-10.2 [facility] Comment on above: Performed By: #### C K, ESR, BMP, CRP #### [place] [address] [place] #### MYOG, ALDOLASE #### [facility] , Chloride [Moles/Vol] 95 mmol/L Normal 95-114 [facility] Comment on above: Performed By: #### C K, ESR, BMP, CRP #### [facility] [address] [place] [address] [place] #### MYOG, ALDOLASE #### [facility] , CO2 [Moles/Vol] 22.4 mmol/L Normal 22.0-30.0 [facility] Comment on above: Performed By: #### C K, ESR, BMP, CRP #### [place] [address] [place] #### MYOG, ALDOLASE #### [facility] , Creatinine [Mass/Vol] 0.45 mg/dL Normal 0.44-1.03 [facility] Comment on above: Performed By: #### C K, ESR, BMP, CRP #### [place] [address] [place] #### MYOG, ALDOLASE #### [facility] , Creatinine Clr Calc Pharmacy 69.79 [facility] Comment on above: Performed By: #### C K, ESR, BMP, CRP #### [place] [address] [place] #### MYOG, ALDOLASE #### [facility] , Estimated GFR ( Radha > 60 [facility] Comment on above: Result Comment: GFR estimated reference range: According to KDOQI guidelines, <60 ml/min/1.73m2 is sufficient to diagnose a patient with chronic kidney disease. Performed By: #### C K, ESR, BMP, CRP #### [address] #### MYOG, ALDOLASE #### [facility] , Estimated GFR (Non- Am > 60 [facility] Comment on above: Performed By: #### C K, ESR, BMP, CRP #### [address] #### MYOG, ALDOLASE #### [facility] , Globulin (S) [Mass/Vol] 3.5 g/dL Normal [facility] Comment on above: Performed By: #### C K, ESR, BMP, CRP #### [address] #### MYOG, ALDOLASE #### [facility] , Glucose [Mass/Vol] 97 mg/dL Normal 70-100 [facility] Comment on above: Result Comment: [place] om Glucose Reference Range is dependent on time and content of last meal. Glucose of more than 200 mg/dL in a nonstressed, ambulatory subject supports the diagnosis of Diabetes Mellitus. ADA recommended reference range Performed By: #### C K, ESR, BMP, CRP #### [place] [address] [place] #### MYOG, ALDOLASE #### [facility] , Potassium [Moles/Vol] 4.5 mmol/L Normal 3.5-5.1 [facility] Comment on above: Performed By: #### C K, ESR, BMP, CRP #### [place] [address] [place] #### MYOG, ALDOLASE #### [facility] , Protein [Mass/Vol] 6.1 g/dL Normal 6.1-7.9 [facility] Comment on above: Performed By: #### C K, ESR, BMP, CRP #### [place] [address] [place] #### MYOG, ALDOLASE #### [facility] , Sodium [Moles/Vol] 126 mmol/L Low 136-146 [facility] Comment on above: Performed By: #### C K, ESR, BMP, CRP #### [address] #### MYOG, ALDOLASE #### [facility] , Urea nitrogen [Mass/Vol] 6 mg/dL Low 9-23 [facility] Comment on above: Performed By: #### C K, ESR, BMP, CRP #### [address] #### MYOG, ALDOLASE #### [facility] , Magnesiumon 09-30-2021 Magnesium [Mass/Vol] 0.9 mg/dL Off scale low 1.6-2.6 [facility] Comment on above: Result Comment: Crit ical value result called at 0826 on 09/30/21 PERFORMED BY: [place] [address] PATHOLOGIST WHEEL ALIGNMENT TECHNICIAN IDANIA WHITESIDE M.D. Performed By: #### C K, ESR, BMP, CRP #### [place] [address] [place] #### MYOG, ALDOLASE #### [facility] , Basic Metabolic Panelon 09-18 Calcium [Mass/Vol] 8.1 mg/dL Low 8.2-10.2 [facility] Comment on above: Performed By: #### C K, ESR, BMP, CRP #### [facility] [address] [place] [address] #### MYOG, ALDOLASE #### [facility] , Chloride [Moles/Vol] 94 mmol/L Low 95-114 [facility] Comment on above: Performed By: #### C K, ESR, BMP, CRP #### [facility] [address] [place] [address] #### MYOG, ALDOLASE #### [facility] , CO2 [Moles/Vol] 22.9 mmol/L Normal 22.0-30.0 [facility] Comment on above: Performed By: #### C K, ESR, BMP, CRP #### [facility] [address] [place] [address] [place] #### MYOG, ALDOLASE #### [facility] , Creatinine [Mass/Vol] 0.55 mg/dL Normal 0.44-1.03 [facility] Comment on above: Performed By: #### C K, ESR, BMP, CRP #### [facility] [address] [place] [address] #### MYOG, ALDOLASE #### [facility] , Creatinine Clr Calc Pharmacy 71.49 [facility] Comment on above: Performed By: #### C K, ESR, BMP, CRP #### [facility] [address] [place] [address] [place] #### MYOG, ALDOLASE #### [facility] , Estimated GFR ( Radha > 60 [facility] Comment on above: Result Comment: GFR estimated reference range: According to KDOQI guidelines, <60 ml/min/1.73m2 is sufficient to diagnose a patient with chronic kidney disease. Performed By: #### C K, ESR, BMP, CRP #### [place] [address] [place] #### MYOG, ALDOLASE #### [facility] , Estimated GFR (Non- Am > [address] [facility] Comment on above: Performed By: #### C K, ESR, BMP, CRP #### [place] [address] [place] #### MYOG, ALDOLASE #### [facility] , Glucose [Mass/Vol] 138 mg/dL High 70-100 [facility] Comment on above: Result Comment: [facility] Glucose Reference Range is dependent on time and content of last meal. Glucose of more than 200 mg/dL in a nonstressed, ambulatory subject supports the diagnosis of Diabetes Mellitus. ADA recommended reference range Performed By: #### C K, ESR, BMP, CRP #### [place] [address] [place] #### MYOG, ALDOLASE #### [facility] , Potassium [Moles/Vol] 4.5 mmol/L Normal 3.5-5.1 [facility] Comment on above: Performed By: #### C K, ESR, BMP, CRP #### [place] [address] [place] #### MYOG, ALDOLASE #### [facility] , Sodium [Moles/Vol] 126 mmol/L Low 136-146 [facility] Comment on above: Performed By: #### C K, ESR, BMP, CRP #### [place] [address] [place] #### MYOG, ALDOLASE #### [facility] , Urea nitrogen [Mass/Vol] 6 mg/dL Low 9-23 [facility] Comment on above: Performed By: #### C K, ESR, BMP, CRP #### [place] [address] [place] #### MYOG, ALDOLASE #### [facility] , Complete Blood Count Auto Di ffon 09-29-2021 Basophils (Bld) [#/Vol] 0.1 10*3/uL Normal 0.0-0.2 [facility] Comment on above: Result Comment: PERF ORMED BY: [place] [address] PATHOLOGIST WHEEL ALIGNMENT TECHNICIAN IDANIA WHITESIDE M.D. Performed By: #### C K, ESR, BMP, CRP #### [address] #### MYOG, ALDOLASE #### [facility] , Basophils/100 WBC (Bld) 1.1 % Normal . [facility] Comment on above: Performed By: #### C K, ESR, BMP, CRP #### [place] [address] [place] #### MYOG, ALDOLASE #### [facility] , Eosinophils (Bld) [#/Vol] 0.1 10*3/uL Normal 0.0-0.45 [facility] Comment on above: Performed By: #### C K, ESR, BMP, CRP #### [place] [address] [place] #### MYOG, ALDOLASE #### [facility] , Eosinophils/100 WBC (Bld) 1.5 % Normal . [facility] Comment on above: Performed By: #### C K, ESR, BMP, CRP #### [place] [address] [place] #### MYOG, ALDOLASE #### [facility] , Erythrocyte distribution width (RBC) [Ratio] 15.2 % Normal 11.9-15.3 [facility] Comment on above: Performed By: #### C K, ESR, BMP, CRP #### [place] [address] [place] #### MYOG, ALDOLASE #### [facility] , Hematocrit (Bld) [Volume fraction] 29.6 % Low 34.0-46.4 [facility] Comment on above: Performed By: #### C K, ESR, BMP, CRP #### [address] #### MYOG, ALDOLASE #### [facility] , Hemoglobin (Bld) [Mass/Vol] 9.7 g/dL Low 11.8-15.4 [facility] Comment on above: Performed By: #### C K, ESR, BMP, CRP #### [address] #### MYOG, ALDOLASE #### [facility] , Lymphocytes (Bld) [#/Vol] 0.6 10*3/uL Low 1.00-4.8 [facility] Comment on above: Performed By: #### C K, ESR, BMP, CRP #### [address] #### MYOG, ALDOLASE #### [facility] , Lymphocytes/100 WBC (Bld) 8.2 % Normal . [facility] Comment on above: Performed By: #### C K, ESR, BMP, CRP #### [place] [address] [place] #### MYOG, ALDOLASE #### [facility] , MCH (RBC) [Entitic mass] 30.9 pg Normal 24.7-34.3 [facility] Comment on above: Performed By: #### C K, ESR, BMP, CRP #### [facility] [address] [place] [address] [place] #### MYOG, ALDOLASE #### [facility] , MCV (RBC) [Entitic vol] 94.2 fL Normal 80-100 F [facility] Comment on above: Performed By: #### C K, ESR, BMP, CRP #### [facility] [address] [place] [address] [place] #### MYOG, ALDOLASE #### [facility] , Mean Corpuscular HGB Conc 32.8 g/dL Normal 32.0-35.0 [facility] Comment on above: Performed By: #### C K, ESR, BMP, CRP #### [facility] [address] [place] [address] [place] #### MYOG, ALDOLASE #### [facility] , Monocytes (Bld) [#/Vol] 0.4 10*3/uL Normal 0.0-0.8 [facility] Comment on above: Performed By: #### C K, ESR, BMP, CRP #### [address] #### MYOG, ALDOLASE #### [facility] , Monocytes/100 WBC (Bld) 5.2 % Normal . [facility] Comment on above: Performed By: #### C K, ESR, BMP, CRP #### [place] [address] [place] #### MYOG, ALDOLASE #### [facility] , Neutrophils (Bld) [#/Vol] 5.8 10*3/uL Normal 1.8-7.7 [facility] Comment on above: Performed By: #### C K, ESR, BMP, CRP #### [place] [address] [place] #### MYOG, ALDOLASE #### [facility] , Neutrophils/100 WBC (Bld) 84.0 % Normal . [facility] Comment on above: Performed By: #### C K, ESR, BMP, CRP #### [place] [address] [place] #### MYOG, ALDOLASE #### [facility] , Nucleated RBC/100 WBC (Bld) [Ratio] 0.1 % Normal 0-0.5 [facility] Comment on above: Performed By: #### C K, ESR, BMP, CRP #### [facility] [address] [place] [address] [place] #### MYOG, ALDOLASE #### [facility] , Platelet mean volume (Bld) [Entitic vol] 7.7 fL Normal 6.3-10.7 [facility] Comment on above: Performed By: #### C K, ESR, BMP, CRP #### [facility] [address] [place] [address] [place] #### MYOG, ALDOLASE #### [facility] , Platelets (Bld) [#/Vol] 239 10*3/uL Normal 150-450 [facility] Comment on above: Performed By: #### C K, ESR, BMP, CRP #### [facility] [address] [place] [address] [place] #### MYOG, ALDOLASE #### [facility] , RBC (Bld) [#/Vol] 3.15 10*6/uL Low 3.60-5.00 [facility] Comment on above: Performed By: #### C K, ESR, BMP, CRP #### [facility] [address] [place] [address] #### MYOG, ALDOLASE #### [facility] , WBC (Bld) [#/Vol] 6.9 10*3/uL Normal 4.5-11.0 [facility] Comment on above: Performed By: #### C K, ESR, BMP, CRP #### [facility] [address] [place] [address] [place] #### MYOG, ALDOLASE #### [facility] , Magnesiumon 09-29-2021 Magnesium [Mass/Vol] 1.3 mg/dL Low 1.6-2.6 [facility] Comment on above: Result Comment: PERF ORMED BY: [place] [address] PATHOLOGIST WHEEL ALIGNMENT TECHNICIAN IDANIA WHITESIDE M.D. Performed By: #### C K, ESR, BMP, CRP #### [address] #### MYOG, ALDOLASE #### [facility] , Partial Thromboplastin Timeo n 09-29-2021 aPTT Coag (Bld) [Time] 44.5 s High 25.1-36.[address] [facility] Comment on above: Result Comment: PERF ORMED BY: [place] [address] PATHOLOGIST WHEEL ALIGNMENT TECHNICIAN IDANIA WHITESIDE M.D. Performed By: #### C K, ESR, BMP, CRP #### [address] #### MYOG, ALDOLASE #### [facility] , Prothrombin Time INRon 09-29 INR Coag (PPP) [Relative time] 1.6 {INR} Normal [facility] Comment on above: Result Comment: INR Therapeutic [...] #### C K, ESR, BMP, CRP #### [place] [address] [place] #### MYOG, ALDOLASE #### [facility] , PT Coag (PPP) [Time] 17.7 s High 9.0-12.9 [facility] Comment on above: Performed By: #### C K, ESR, BMP, CRP #### [place] [address] [place] #### MYOG, ALDOLASE #### [facility] , Stool Occult Blood (Guaiac)o n 09-29-2021 Stool Occult Blood (Guaiac) Occult Blood Negative for Occult Blood by Guaiac Methodology Reference range = Negative PERFORMED BY: [place] [address] PATHOLOGIST WHEEL ALIGNMENT TECHNICIAN IDANIA WHITESIDE M.D. Normal [facility] Comment on above: Performed By: #### T SH3 wRFLX, T4F, LIPID, [id number] #### [address] Complete Blood Count Auto Di ffon 09-28-2021 Basophils (Bld) [#/Vol] 0.1 10*3/uL Normal 0.0-0.2 [facility] Comment on above: Result Comment: PERF ORMED BY: [place] [address] PATHOLOGIST WHEEL ALIGNMENT TECHNICIAN IDANIA WHITESIDE M.D. Performed By: #### T SH3 wRFLX, T4F, LIPID, [id number] #### [address] Basophils/100 WBC (Bld) 0.9 % Normal . [facility] Comment on above: Performed By: #### T SH3 wRFLX, T4F, LIPID, [id number] #### [facility] [address] [place] [address] Eosinophils (Bld) [#/Vol] 0.2 10*3/uL Normal 0.0-0.45 [facility] Comment on above: Performed By: #### T SH3 wRFLX, T4F, LIPID, [id number] #### [facility] [address] [place] [address] Eosinophils/100 WBC (Bld) 2.4 % Normal . [facility] Comment on above: Performed By: #### T SH3 wRFLX, T4F, LIPID, [id number] #### [facility] [address] [place] [address] Erythrocyte distribution width (RBC) [Ratio] 15.5 % High 11.9-15.3 [facility] Comment on above: Performed By: #### T SH3 wRFLX, T4F, LIPID, [id number] #### [address] Hematocrit (Bld) [Volume fraction] 27.3 % Low 34.0-46.4 [facility] Comment on above: Performed By: #### T SH3 wRFLX, T4F, LIPID, [id number] #### [address] Hemoglobin (Bld) [Mass/Vol] 8.9 g/dL Low 11.8-15.4 [facility] Comment on above: Performed By: #### T SH3 wRFLX, T4F, LIPID, [id number] #### [address] Lymphocytes (Bld) [#/Vol] 1.0 10*3/uL Normal 1.00-4.8 [facility] Comment on above: Performed By: #### T SH3 wRFLX, T4F, LIPID, [id number] #### [address] Lymphocytes/100 WBC (Bld) 15.3 % Normal . [facility] Comment on above: Performed By: #### T SH3 wRFLX, T4F, LIPID, [id number] #### [address] MCH (RBC) [Entitic mass] 30.9 pg Normal 24.7-34.3 [facility] Comment on above: Performed By: #### T SH3 wRFLX, T4F, LIPID, [id number] #### [address] MCV (RBC) [Entitic vol] 94.9 fL Normal 80-100 F [facility] Comment on above: Performed By: #### T SH3 wRFLX, T4F, LIPID, [id number] #### [facility] [address] Mean Corpuscular HGB Conc 32.6 g/dL Normal 32.0-35.0 [facility] Comment on above: Performed By: #### T SH3 wRFLX, T4F, LIPID, [id number] #### [place] [address] [place] Monocytes (Bld) [#/Vol] 0.5 10*3/uL Normal 0.0-0.8 [facility] Comment on above: Performed By: #### T SH3 wRFLX, T4F, LIPID, [id number] #### [place] [address] [place] Monocytes/100 WBC (Bld) 8.6 % Normal . [facility] Comment on above: Performed By: #### T SH3 wRFLX, T4F, LIPID, [id number] #### [place] [address] [place] Neutrophils (Bld) [#/Vol] 4.6 10*3/uL Normal 1.8-7.7 [facility] Comment on above: Performed By: #### T SH3 wRFLX, T4F, LIPID, [id number] #### [place] [address] [place] Neutrophils/100 WBC (Bld) 72.8 % Normal . [facility] Comment on above: Performed By: #### T SH3 wRFLX, T4F, LIPID, [id number] #### [place] [address] [place] Nucleated RBC/100 WBC (Bld) [Ratio] 0.1 % Normal 0-0.5 [facility] Comment on above: Performed By: #### T SH3 wRFLX, T4F, LIPID, [id number] #### [place] [address] [place] Platelet mean volume (Bld) [Entitic vol] 7.4 fL Normal 6.3-10.7 [facility] Comment on above: Performed By: #### T SH3 wRFLX, T4F, LIPID, [id number] #### [facility] [address] Platelets (Bld) [#/Vol] 227 10*3/uL Normal 150-450 [facility] Comment on above: Performed By: #### T SH3 wRFLX, T4F, LIPID, [id number] #### [facility] [address] RBC (Bld) [#/Vol] 2.88 10*6/uL Low 3.60-5.00 [facility] Comment on above: Performed By: #### T SH3 wRFLX, T4F, LIPID, [id number] #### [facility] [address] [place] [address] WBC (Bld) [#/Vol] 6.3 10*3/uL Normal 4.5-11.0 [facility] Comment on above: Performed By: #### T SH3 wRFLX, T4F, LIPID, [id number] #### [facility] [address] [place] [address] Comprehensive Metabolic Pane huber 09-28-2021 Albumin [Mass/Vol] 2.4 g/dL Low 3.2-5.5 [facility] Comment on above: Performed By: #### T SH3 wRFLX, T4F, LIPID, [id number] #### [facility] [address] [place] [address] Albumin/Globulin [Mass ratio] 0.8 {ratio} Normal [facility] Comment on above: Performed By: #### T SH3 wRFLX, T4F, LIPID, [id number] #### [facility] [address] [place] [address] ALP [Catalytic activity/Vol] 89 U/L Normal 32-92 [facility] Comment on above: Performed By: #### T SH3 wRFLX, T4F, LIPID, [id number] #### [facility] [address] [place] [address] ALT [Catalytic activity/Vol] 21 U/L Normal 10-60 [facility] Comment on above: Performed By: #### T SH3 wRFLX, T4F, LIPID, [id number] #### [facility] [address] AST [Catalytic activity/Vol] 36 U/L Normal 10-42 [facility] Comment on above: Performed By: #### T SH3 wRFLX, T4F, LIPID, [id number] #### [facility] [address] Bilirubin [Mass/Vol] 0.6 mg/dL Normal 0.3-1.2 [facility] Comment on above: Performed By: #### T SH3 wRFLX, T4F, LIPID, [id number] #### [address] Calcium [Mass/Vol] 7.2 mg/dL Low 8.2-10.2 [facility] Comment on above: Performed By: #### T SH3 wRFLX, T4F, LIPID, [id number] #### [facility] [address] Chloride [Moles/Vol] 91 mmol/L Low 95-114 [facility] Comment on above: Performed By: #### T SH3 wRFLX, T4F, LIPID, [id number] #### [facility] [address] CO2 [Moles/Vol] 26.6 mmol/L Normal 22.0-30.0 [facility] Comment on above: Performed By: #### T SH3 wRFLX, T4F, LIPID, [id number] #### [facility] [address] [place] [address] [place] Creatinine [Mass/Vol] 0.62 mg/dL Normal 0.44-1.03 [facility] Comment on above: Performed By: #### T SH3 wRFLX, T4F, LIPID, [id number] #### [facility] [address] [place] [address] [place] Creatinine Clr Calc Pharmacy 70.25 Normal [facility] Comment on above: Performed By: #### T SH3 wRFLX, T4F, LIPID, [id number] #### [facility] [address] Estimated GFR ( Radha > 60 [facility] Comment on above: Result Comment: GFR estimated reference range: According to KDOQI guidelines, <60 ml/min/1.73m2 is sufficient to diagnose a patient with chronic kidney disease. Performed By: #### T SH3 wRFLX, T4F, LIPID, [id number] #### [facility] [address] Estimated GFR (Non- Am > 60 [facility] Comment on above: Performed By: #### T SH3 wRFLX, T4F, LIPID, [id number] #### [facility] [address] Globulin (S) [Mass/Vol] 3.2 g/dL Normal [facility] Comment on above: Performed By: #### T SH3 wRFLX, T4F, LIPID, [id number] #### [facility] [address] Glucose [Mass/Vol] 90 mg/dL Normal 70-100 [facility] Comment on above: Result Comment: [place] Glucose Reference Range is dependent on time and content of last meal. Glucose of more than 200 mg/dL in a nonstressed, ambulatory subject supports the diagnosis of Diabetes Mellitus. ADA recommended reference range Performed By: #### T SH3 wRFLX, T4F, LIPID, [id number] #### [facility] [address] Potassium [Moles/Vol] 3.8 mmol/L Normal 3.5-5.1 [facility] Comment on above: Performed By: #### T SH3 wRFLX, T4F, LIPID, [id number] #### [facility] [address] Protein [Mass/Vol] 5.6 g/dL Low 6.1-7.9 [facility] Comment on above: Performed By: #### T SH3 wRFLX, T4F, LIPID, [id number] #### [facility] [address] Sodium [Moles/Vol] 129 mmol/L Low 136-146 [facility] Comment on above: Performed By: #### T SH3 wRFLX, T4F, LIPID, [id number] #### [facility] [address] Urea nitrogen [Mass/Vol] 12 mg/dL Normal 04-12 [facility] Comment on above: Performed By: #### T SH3 wRFLX, T4F, LIPID, [id number] #### [facility] [address] Consultation Noteon 09-29-19 Consultation Note [id number] .00CD:127 Normal [facility] ED Note-Physicianon 09-29-19 ED Note-Physician [phone] [id number] .[id number]:127 Normal [facility] Insurance Correspondence Off iceon 09-28-2021 Insurance Correspondence Office [id number]#1 .00CD:127 Normal [facility] Magnesiumon 09-28-2021 Magnesium [Mass/Vol] 0.9 mg/dL Off scale low 1.6-2.6 [facility] Comment on above: Result Comment: Resu lts called at 0632 on 09/28/21 Performed By: #### T SH3 wRFLX, T4F, LIPID, [id number] #### [facility] [address] RAD - CT Reporton 09-28-2021 RAD - CT Report [phone] [id number] .00CD:127 Normal [facility] Thyroid Stimulating Hormoneo n 09-28-2021 TSH Qn 9.77 m[IU]/L High 0.45-5.33 [facility] Comment on above: Performed By: #### T SH3 wRFLX, T4F, LIPID, [id number] #### [address] Vitamin D 25 Hydroxy Totalon 09-28-2021 Vitamin D 25 Hydroxy Total < 7.0 Low 30-100 [facility] Comment on above: Result Comment: MALODNADO MIN D STATUS 25(OH)VITAMIN D RANGE (ng/mL) Deficient <20 Insufficient 20 to <30 Sufficient 30 to 100 Reference: Bandar MF,Cara YEUNG, Marissa NICHOLAS, et al. Evaluation,treatment, and prevention of vitamin D deficiency; an Endocrine Society clinical practice guideline. JCEM. 2010; 96(7):1911-30. PERFORMED BY: [place] [address] PATHOLOGIST WHEEL ALIGNMENT TECHNICIAN IDANIA WHITESIDE M.D. Performed By: #### T SH3 wRFLX, T4F, LIPID, [id number] #### [address] A1C with Estimated Average G [facility] 09-27-2021 Glucose [Mass/Vol] 111 mg/dL Normal [facility] Comment on above: Order Comment: Comme nt please add on Result Comment: PERF ORMED BY: [place] [address] PATHOLOGIST WHEEL ALIGNMENT TECHNICIAN IDANIA WH[place]ES[place] M.D. Performed By: #### C K, ESR, BMP, CRP #### [address] #### MYOG, ALDOLASE #### [facility] , HbA1c (Bld) [Mass fraction] 5.5 % Normal 4.3-5.6 [facility] Comment on above: Order Comment: Comme nt please add on Result Comment: Incr eased risk for diabetes: 5.7 - 6.4 diabetes: >6.4 glycemic control for adults with diabetes: <7.0 Performed By: #### C K, ESR, BMP, CRP #### [address] [place] [address] [place] #### MYOG, ALDOLASE #### [facility] , Cell Count Differential,CSFo n 09-27-2021 Appearance, CSF Clear Normal Clear [facility] Comment on above: Order Comment: Comme nt Tube 1 Performed By: #### C K, ESR, BMP, CRP #### [place] [address] [place] #### MYOG, ALDOLASE #### [facility] , Order Comment: Comme nt Tube 3 Color, CSF Colorless Normal Colorless [facility] Comment on above: Order Comment: Comme nt Tube 1 Performed By: #### C K, ESR, BMP, CRP #### [address] #### MYOG, ALDOLASE #### [facility] , Order Comment: Comme nt Tube 3 CSF Supernatant Color Colorless Normal Colorless [facility] Comment on above: Order Comment: Comme nt Tube 1 Performed By: #### C K, ESR, BMP, CRP #### [address] #### MYOG, ALDOLASE #### [facility] , Order Comment: Comme nt Tube 3 CSF Volume, Total 13.0 mL [facility] Comment on above: Order Comment: Comme nt Tube 1 Performed By: #### C K, ESR, BMP, CRP #### [place] [address] [place] #### MYOG, ALDOLASE #### [facility] , Order Comment: Comme nt Tube 3 RBC, CSF 7 /uL [facility] Comment on above: Order Comment: Comme nt Tube 1 Result Comment: The reference interval and other method performance specifications have not been established for this body fluid. The test result must be integrated into the clinical context for interpretation. Performed By: #### C K, ESR, BMP, CRP #### [place] [address] [place] #### MYOG, ALDOLASE #### [facility] , TNC, CSF 0 /uL Normal 0-5 [facility] Comment on above: Order Comment: Comme nt Tube 1 Performed By: #### C K, ESR, BMP, CRP #### [address] #### MYOG, ALDOLASE #### [facility] , Order Comment: Comme nt Tube 3 Tube Number Tested, CSF Tube Number: [address] [facility] Comment on above: Order Comment: Comme nt Tube 1 Result Comment: PERF ORMED BY: [place] [address] PATHOLOGIST WHEEL ALIGNMENT TECHNICIAN IDANIA WHITESIDE M.D. Performed By: #### C K, ESR, BMP, CRP #### [address] #### MYOG, ALDOLASE #### [facility] , Cell Count Differential,CSF #2on 09-27-2021 RBC, CSF 0 /uL Normal [facility] Comment on above: Order Comment: Comme nt Tube 3 Result Comment: The reference interval and other method performance specifications have not been established for this body fluid. The test result must be integrated into the clinical context for interpretation. Performed By: #### C K, ESR, BMP, CRP #### [place] [address] [place] #### MYOG, ALDOLASE #### [facility] , Tube Number Tested, CSF Tube Number: [address] [facility] Comment on above: Order Comment: Comme nt Tube 3 Result Comment: PERF ORMED BY: [place] [address] PATHOLOGIST WHEEL ALIGNMENT TECHNICIAN IDANIA WH[place]ES[place] M.D. Performed By: #### C K, ESR, BMP, CRP #### [place] [address] [place] #### MYOG, ALDOLASE #### [facility] , Complete Blood Count Auto Di ffon 09-27-2021 Basophils (Bld) [#/Vol] 0.0 10*3/uL Normal 0.0-0.2 [facility] Comment on above: Result Comment: PERF ORMED BY: [place] [address] PATHOLOGIST WHEEL ALIGNMENT TECHNICIAN IDANIA WH[place]ESIDE M.D. Performed By: #### C K, ESR, BMP, CRP #### [address] #### MYOG, ALDOLASE #### [facility] , Basophils/100 WBC (Bld) 0.7 % Normal . [facility] Comment on above: Performed By: #### C K, ESR, BMP, CRP #### [place] [address] [place] #### MYOG, ALDOLASE #### [facility] , Eosinophils (Bld) [#/Vol] 0.1 10*3/uL Normal 0.0-0.45 [facility] Comment on above: Performed By: #### C K, ESR, BMP, CRP #### [address] #### MYOG, ALDOLASE #### [facility] , Eosinophils/100 WBC (Bld) 2.5 % Normal . [facility] Comment on above: Performed By: #### C K, ESR, BMP, CRP #### [place] [address] [place] #### MYOG, ALDOLASE #### [facility] , Erythrocyte distribution width (RBC) [Ratio] 15.4 % High 11.9-15.3 [facility] Comment on above: Performed By: #### C K, ESR, BMP, CRP #### [place] [address] [place] #### MYOG, ALDOLASE #### [facility] , Hematocrit (Bld) [Volume fraction] 28.7 % Low 34.0-46.4 [facility] Comment on above: Performed By: #### C K, ESR, BMP, CRP #### [address] #### MYOG, ALDOLASE #### [facility] , Hemoglobin (Bld) [Mass/Vol] 9.3 g/dL Low 11.8-15.4 [facility] Comment on above: Performed By: #### C K, ESR, BMP, CRP #### [place] [address] [place] #### MYOG, ALDOLASE #### [facility] , Lymphocytes (Bld) [#/Vol] 0.9 10*3/uL Low 1.00-4.8 [facility] Comment on above: Performed By: #### C K, ESR, BMP, CRP #### [address] #### MYOG, ALDOLASE #### [facility] , Lymphocytes/100 WBC (Bld) 15.7 % Normal . [facility] Comment on above: Performed By: #### C K, ESR, BMP, CRP #### [place] [address] [place] #### MYOG, ALDOLASE #### [facility] , MCH (RBC) [Entitic mass] 31.1 pg Normal 24.7-34.3 [facility] Comment on above: Performed By: #### C K, ESR, BMP, CRP #### [facility] [address] [place] [address] [place] #### MYOG, ALDOLASE #### [facility] , MCV (RBC) [Entitic vol] 95.8 fL Normal 80-100 F [facility] Comment on above: Performed By: #### C K, ESR, BMP, CRP #### [place] [address] [place] #### MYOG, ALDOLASE #### [facility] , Mean Corpuscular HGB Conc 32.5 g/dL Normal 32.0-35.0 [facility] Comment on above: Performed By: #### C K, ESR, BMP, CRP #### [facility] [address] [place] [address] [place] #### MYOG, ALDOLASE #### [facility] , Monocytes (Bld) [#/Vol] 0.5 10*3/uL Normal 0.0-0.8 [facility] Comment on above: Performed By: #### C K, ESR, BMP, CRP #### [address] #### MYOG, ALDOLASE #### [facility] , Monocytes/100 WBC (Bld) 9.6 % Normal . [facility] Comment on above: Performed By: #### C K, ESR, BMP, CRP #### [place] [address] [place] #### MYOG, ALDOLASE #### [facility] , Neutrophils (Bld) [#/Vol] 4.0 10*3/uL Normal 1.8-7.7 [facility] Comment on above: Performed By: #### C K, ESR, BMP, CRP #### [place] [address] [place] #### MYOG, ALDOLASE #### [facility] , Neutrophils/100 WBC (Bld) 71.5 % Normal . [facility] Comment on above: Performed By: #### C K, ESR, BMP, CRP #### [facility] [address] [place] [address] [place] #### MYOG, ALDOLASE #### [facility] , Nucleated RBC/100 WBC (Bld) [Ratio] 0.1 % Normal 0-0.5 [facility] Comment on above: Performed By: #### C K, ESR, BMP, CRP #### [facility] [address] [place] [address] #### MYOG, ALDOLASE #### [facility] , Platelet mean volume (Bld) [Entitic vol] 7.7 fL Normal 6.3-10.7 [facility] Comment on above: Performed By: #### C K, ESR, BMP, CRP #### [facility] [address] [place] [address] [place] #### MYOG, ALDOLASE #### [facility] , Platelets (Bld) [#/Vol] 261 10*3/uL Normal 150-450 [facility] Comment on above: Performed By: #### C K, ESR, BMP, CRP #### [place] [address] [place] #### MYOG, ALDOLASE #### [facility] , RBC (Bld) [#/Vol] 2.99 10*6/uL Low 3.60-5.00 [facility] Comment on above: Performed By: #### C K, ESR, BMP, CRP #### [place] [address] [place] #### MYOG, ALDOLASE #### [facility] , WBC (Bld) [#/Vol] 5.6 10*3/uL Normal 4.5-11.0 [facility] Comment on above: Performed By: #### C K, ESR, BMP, CRP #### [facility] [address] [place] [address] [place] #### MYOG, ALDOLASE #### [facility] , Comprehensive Metabolic Pane huber 09-27-2021 Albumin [Mass/Vol] 2.5 g/dL Low 3.2-5.5 [facility] Comment on above: Performed By: #### C K, ESR, BMP, CRP #### [facility] [address] [place] [address] [place] #### MYOG, ALDOLASE #### [facility] , Albumin/Globulin [Mass ratio] 0.8 {ratio} Normal [facility] Comment on above: Performed By: #### C K, ESR, BMP, CRP #### [facility] [address] [place] [address] [place] #### MYOG, ALDOLASE #### [facility] , ALP [Catalytic activity/Vol] 99 U/L High 32-92 [facility] Comment on above: Performed By: #### C K, ESR, BMP, CRP #### [facility] [address] [place] [address] [place] #### MYOG, ALDOLASE #### [facility] , ALT [Catalytic activity/Vol] 25 U/L Normal 1060 [facility] Comment on above: Performed By: #### C K, ESR, BMP, CRP #### [place] [address] [place] #### MYOG, ALDOLASE #### [facility] , AST [Catalytic activity/Vol] 40 U/L Normal 10-42 [facility] Comment on above: Performed By: #### C K, ESR, BMP, CRP #### [facility] [address] [place] [address] [place] #### MYOG, ALDOLASE #### [facility] , Bilirubin [Mass/Vol] 0.7 mg/dL Normal 0.3-1.2 [facility] Comment on above: Performed By: #### C K, ESR, BMP, CRP #### [facility] [address] [place] [address] [place] #### MYOG, ALDOLASE #### [facility] , Calcium [Mass/Vol] 7.3 mg/dL Low 8.2-10.2 [facility] Comment on above: Performed By: #### C K, ESR, BMP, CRP #### [facility] [address] [place] [address] #### MYOG, ALDOLASE #### [facility] , Chloride [Moles/Vol] 92 mmol/L Low 95-114 [facility] Comment on above: Performed By: #### C K, ESR, BMP, CRP #### [facility] [address] [place] [address] #### MYOG, ALDOLASE #### [facility] , CO2 [Moles/Vol] 32.3 mmol/L High 22.0-30.0 [facility] Comment on above: Performed By: #### C K, ESR, BMP, CRP #### [address] #### MYOG, ALDOLASE #### [facility] , Creatinine [Mass/Vol] 0.81 mg/dL Normal 0.44-1.03 [facility] Comment on above: Performed By: #### C K, ESR, BMP, CRP #### [facility] [address] [place] [address] #### MYOG, ALDOLASE #### [facility] , Creatinine Clr Calc Pharmacy 68.76 [facility] Comment on above: Performed By: #### C K, ESR, BMP, CRP #### [place] [address] [place] #### MYOG, ALDOLASE #### [facility] , Estimated GFR ( Radha > 60 [facility] Comment on above: Result Comment: GFR estimated reference range: According to KDOQI guidelines, <60 ml/min/1.73m2 is sufficient to diagnose a patient with chronic kidney disease. Performed By: #### C K, ESR, BMP, CRP #### [place] [address] [place] #### MYOG, ALDOLASE #### [facility] , Estimated GFR (Non- Am > [address] [facility] Comment on above: Performed By: #### C K, ESR, BMP, CRP #### [facility] [address] [place] [address] [place] #### MYOG, ALDOLASE #### [facility] , Globulin (S) [Mass/Vol] 3.3 g/dL Normal [facility] Comment on above: Performed By: #### C K, ESR, BMP, CRP #### [place] [address] [place] #### MYOG, ALDOLASE #### [facility] , Glucose [Mass/Vol] 114 mg/dL High 70-100 [facility] Comment on above: Result Comment: [place] Glucose Reference Range is dependent on time and content of last meal. Glucose of more than 200 mg/dL in a nonstressed, ambulatory subject supports the diagnosis of Diabetes Mellitus. ADA recommended reference range Performed By: #### C K, ESR, BMP, CRP #### [place] [address] [place] #### MYOG, ALDOLASE #### [facility] , Potassium [Moles/Vol] 3.6 mmol/L Normal 3.5-5.1 [facility] Comment on above: Performed By: #### C K, ESR, BMP, CRP #### [facility] [address] [place] [address] [place] #### MYOG, ALDOLASE #### [facility] , Protein [Mass/Vol] 5.8 g/dL Low 6.1-7.9 [facility] Comment on above: Performed By: #### C K, ESR, BMP, CRP #### [place] [address] [place] #### MYOG, ALDOLASE #### [facility] , Sodium [Moles/Vol] 133 mmol/L Low 136-146 [facility] Comment on above: Performed By: #### C K, ESR, BMP, CRP #### [place] [address] [place] #### MYOG, ALDOLASE #### [facility] , Urea nitrogen [Mass/Vol] 30 mg/dL High 9-23 [facility] Comment on above: Performed By: #### C K, ESR, BMP, CRP #### [facility] [address] [place] [address] [place] #### MYOG, ALDOLASE #### [facility] , FL guided lumbar puncture LP on 09-27-2021 FL guided lumbar puncture LP [facility] Main [place] [address] [place] [address] Fluoroscopy Report Signed Patient: Alyce David MR#: [id number] : 1955 Acct:[id number] Age/Sex: 66 / F ADM Date: 09/25/21 Loc: Room: 2E3167-3 Type: ADM IN Attending Dr: Matthew Laird [...] IMPRESSION: Fluoroscopic-guided lumbar puncture. Impression dictated by: Tryee Serrano Jr., M.D.09/27/2021 2:19 PM Dictation Location: [place] [address] Transcribed By: JULISA 09/27/211418 Dictated By: Tyree Serrano Jr, MD 09/27/211416 Signed By: 09/27/[address] [facility] Glucose, CSF #2on 09-27-2021 Glucose, CSF #2 61 mg/dL Normal 40-70 [facility] Comment on above: Order Comment: Comme nt Tube 3 Performed By: #### C K, ESR, BMP, CRP #### [facility] [address] [place] [address] #### MYOG, ALDOLASE #### [facility] , Glucose, Spinal Fluidon 09-18 Glucose, Spinal Fluid 60 mg/dL Normal 40-70 [facility] Comment on above: Order Comment: Comme nt Tube 1 Performed By: #### C K, ESR, BMP, CRP #### [facility] [address] [place] [address] #### MYOG, ALDOLASE #### [facility] , Huber 09-27-2021 L - -------- Specimen: [id number] Received: 10/01/21-1044 Status: KIRSTIN Gutiérrez Num: [id number] Spec Type: Cytology Subm Dr: Tyree Serrano Jr, MD Tissues: A CSF (CSF) Procedures: Pap Stain, ZHEN-DIFF, CYTOPREPCSF -------- Patient Age/Sex Location Account Attending Physician -------- Alyce David 66/F 4N [id number] Matthew Laird DO -------- SPEC NUM: [id number] RECD: 10/01/21 STATUS: KIRSTIN GUTIÉRREZ NUM: [id number] ISABELA: 09/27/[address] [facility] [address]: Tyree Serrano Jr, MD ENTERED: 10/01/21 [facility] DR: PAT TYPE: Cytology DEPT: NASIR ENTERED BY: [id number] RECV BY: [id number] ORDERED: Pap Stain, ZHEN-DIFF, CYTOPREPCSF ORDERED: Pap [...] findings support the above diagnosis. CPT Codes 82041 -------- -------- Specimen: [id number] Received: 10/01/215 Status: KIRSTIN Gutiérrez Num: [id number] Spec Type: Cytology Subm Dr: Tyree Serrano Jr, MD Tissues: A CSF (CSF) Procedures: Pap Stain, ZHEN-DIFF, CYTOPREPCSF -------- Patient: Alyce David [id number] (Continued) -------- Signed (signature on file) Matthew Negro MD 10/01/21 0263 [facility] MR lumbar spine wo conon MR lumbar spine wo con [facility] Main [place] [address] [place] [address] MRI Report Signed Patient: Alyce David MR#: [id number] : 1955 Acct:[id number] Age/Sex: 66 / F ADM Date: 09/25/21 Loc: Room: [address] [place] [address] Type: ADM IN Attending Dr: Matthew Laird [...] Serrano Jr., M.D.09/27/2021 10:18 AM Dictation Location: [place] [address] Transcribed By: [facility] 09/27/21 1018 Dictated By: Tyree Serrano Jr, MD 09/27/21 1010 Signed By: 09/27/21 1018 [facility] 09-27-2021 Magnesium [Mass/Vol] 1.5 mg/dL Low 1.6-2.6 [facility] Comment on above: Result Comment: PERF ORMED BY: [place] [address] PATHOLOGIST WHEEL ALIGNMENT TECHNICIAN IDANIA WHITESIDE M.D. Performed By: #### C K, ESR, BMP, CRP #### [address] #### MYOG, ALDOLASE #### [facility] , Phosphoruson 09-27-2021 Phosphate [Mass/Vol] 3.1 mg/dL Normal 2.5-4.6 [facility] Comment on above: Performed By: #### C K, ESR, BMP, CRP #### [address] #### MYOG, ALDOLASE #### [facility] , Total Protein, CSF #2on - Total Protein, CSF #2 55 mg/dL High 15-45 [facility] Comment on above: Order Comment: Comme nt Tube 3 Result Comment: PERF ORMED BY: [place] [address] PATHOLOGIST WHEEL ALIGNMENT TECHNICIAN IDANIA WHITESIDE M.D. Performed By: #### C K, ESR, BMP, CRP #### [place] [address] [place] #### MYOG, ALDOLASE #### [facility] , Total Protein, Spinal Fluido n 09-27-2021 Total Protein, Spinal Fluid 55 mg/dL High 15-45 [facility] Comment on above: Order Comment: Comme nt Tube 1 Result Comment: PERF ORMED BY: [place] [address] PATHOLOGIST WHEEL ALIGNMENT TECHNICIAN IDANIA WHITESIDE M.D. Performed By: #### C K, ESR, BMP, CRP #### [facility] [address] #### MYOG, ALDOLASE #### [facility] , XR chest 2V*on 09-27-2021 XR chest 2V* [facility] Main [place] [address] [place] [address] XRay Report Signed Patient: Alyce David MR#: [id number] : 1955 Acct:[id number] Age/Sex: 66 / F ADM Date: 09/25/21 Loc: 4 Room: 2J5861-4 Type: ADM IN Attending Dr: Matthew Laird [...] CONTRAST. Impression dictated by: Lang Garcia Jr., HuyenOTanmay09/27/2021 4:00 PM Dictation Location: [place] [address] Transcribed By: [facility] 09/27/21 1600 Dictated By: Lang Garcia Jr, DO 09/27/21 1558 Signed By: 09/27/[address] [facility] Aldolaseon 09-26-2021 Aldolase 5.1 U/L Normal 3.3-10.3 [facility] Comment on above: Result Comment: Perf ormed at: CB - [facility] [address] [id number] [employer] Grade: Rhys Rivera PhD, Phone: [phone] PERFORMED BY: [place] [address] PATHOLOGIST WHEEL ALIGNMENT TECHNICIAN IDANIA WHITESIDE M.D. Performed By: #### C K, ESR, BMP, CRP #### [facility] [address] [place] [address] [place] #### MYOG, ALDOLASE #### [facility] , Basic Metabolic Panelon 03-0 Calcium [Mass/Vol] 7.5 mg/dL Low 8.2-10.2 [facility] Comment on above: Performed By: #### C K, ESR, BMP, CRP #### [address] #### MYOG, ALDOLASE #### [facility] , Chloride [Moles/Vol] 90 mmol/L Low 95-114 [facility] Comment on above: Performed By: #### C K, ESR, BMP, CRP #### [place] [address] [place] #### MYOG, ALDOLASE #### [facility] , CO2 [Moles/Vol] 33.0 mmol/L High 22.0-30.0 [facility] Comment on above: Performed By: #### C K, ESR, BMP, CRP #### [address] #### MYOG, ALDOLASE #### [facility] , Creatinine [Mass/Vol] 0.99 mg/dL Normal 0.44-1.03 [facility] Comment on above: Performed By: #### C K, ESR, BMP, CRP #### [facility] [address] [place] [address] [place] #### MYOG, ALDOLASE #### [facility] , Creatinine Clr Calc Pharmacy 56.25 [facility] Comment on above: Performed By: #### C K, ESR, BMP, CRP #### [place] [address] [place] #### MYOG, ALDOLASE #### [facility] , Estimated GFR ( Radha > 60 [facility] Comment on above: Result Comment: GFR estimated reference range: According to KDOQI guidelines, <60 ml/min/1.73m2 is sufficient to diagnose a patient with chronic kidney disease. Performed By: #### C K, ESR, BMP, CRP #### [place] [address] [place] #### MYOG, ALDOLASE #### [facility] , Estimated GFR (Non- Am 56 [facility] Comment on above: Performed By: #### C K, ESR, BMP, CRP #### [place] [address] [place] #### MYOG, ALDOLASE #### [facility] , Glucose [Mass/Vol] 120 mg/dL High 70-100 [facility] Comment on above: Result Comment: [place] Glucose Reference Range is dependent on time and content of last meal. Glucose of more than 200 mg/dL in a nonstressed, ambulatory subject supports the diagnosis of Diabetes Mellitus. ADA recommended reference range Performed By: #### C K, ESR, BMP, CRP #### [place] [address] [place] #### MYOG, ALDOLASE #### [facility] , Potassium [Moles/Vol] 3.3 mmol/L Low 3.5-5.1 [facility] Comment on above: Performed By: #### C K, ESR, BMP, CRP #### [place] [address] [place] #### MYOG, ALDOLASE #### [facility] , Sodium [Moles/Vol] 135 mmol/L Low 136-146 [facility] Comment on above: Performed By: #### C K, ESR, BMP, CRP #### [place] [address] [place] #### MYOG, ALDOLASE #### [facility] , Urea nitrogen [Mass/Vol] 40 mg/dL High 9-23 [facility] Comment on above: Performed By: #### C K, ESR, BMP, CRP #### [facility] [address] [place] [address] [place] #### MYOG, ALDOLASE #### [facility] , Calcium [Mass/Vol] 7.5 mg/dL Low 8.2-10.2 [facility] Comment on above: Performed By: #### C K, ESR, BMP, CRP #### [facility] [address] [place] [address] [place] #### MYOG, ALDOLASE #### [facility] , Chloride [Moles/Vol] 86 mmol/L Low 95-114 [facility] Comment on above: Performed By: #### C K, ESR, BMP, CRP #### [facility] [address] [place] [address] #### MYOG, ALDOLASE #### [facility] , CO2 [Moles/Vol] 33.1 mmol/L High 22.0-30.0 [facility] Comment on above: Performed By: #### C K, ESR, BMP, CRP #### [facility] [address] [place] [address] #### MYOG, ALDOLASE #### [facility] , Creatinine [Mass/Vol] 1.31 mg/dL High 0.44-1.03 [facility] Comment on above: Performed By: #### C K, ESR, BMP, CRP #### [facility] [address] [place] [address] [place] #### MYOG, ALDOLASE #### [facility] , Creatinine Clr Calc Pharmacy 42.85 [facility] Comment on above: Result Comment: PERF ORMED BY: [place] [address] PATHOLOGIST WHEEL ALIGNMENT TECHNICIAN JIANLAN SUN M.D. Performed By: #### C K, ESR, BMP, CRP #### [facility] [address] [place] [address] [place] #### MYOG, ALDOLASE #### [facility] , Estimated GFR ( Radha [address] [facility] Comment on above: Result Comment: GFR estimated reference range: According to KDOQI guidelines, <60 ml/min/1.73m2 is sufficient to diagnose a patient with chronic kidney disease. Performed By: #### C K, ESR, BMP, CRP #### [place] [address] [place] #### MYOG, ALDOLASE #### [facility] , Estimated GFR (Non- Am [address] [facility] Comment on above: Performed By: #### C K, ESR, BMP, CRP #### [place] [address] [place] #### MYOG, ALDOLASE #### [facility] , Glucose [Mass/Vol] 141 mg/dL High 70-100 [facility] Comment on above: Result Comment: [place] om Glucose Reference Range is dependent on time and content of last meal. Glucose of more than 200 mg/dL in a nonstressed, ambulatory subject supports the diagnosis of Diabetes Mellitus. ADA recommended reference range Performed By: #### C K, ESR, BMP, CRP #### [place] [address] [place] #### MYOG, ALDOLASE #### [facility] , Potassium [Moles/Vol] 2.8 mmol/L Off scale low 3.5-5.1 [facility] Comment on above: Result Comment: Resu lts called at 2341 on 09/25/21 Performed By: #### C K, ESR, BMP, CRP #### [place] [address] [place] #### MYOG, ALDOLASE #### [facility] , Sodium [Moles/Vol] 133 mmol/L Low 136-146 [facility] Comment on above: Performed By: #### C K, ESR, BMP, CRP #### [facility] [address] [place] [address] [place] #### MYOG, ALDOLASE #### [facility] , Urea nitrogen [Mass/Vol] 51 mg/dL High 9-23 [facility] Comment on above: Performed By: #### C K, ESR, BMP, CRP #### [facility] [address] [place] [address] [place] #### MYOG, ALDOLASE #### [facility] , C-Reactive Proteinon 022 C-Reactive Protein 4.1 mg/dL High 0.0-1.0 [facility] Comment on above: Result Comment: PERF ORMED BY: [place] [address] PATHOLOGIST WHEEL ALIGNMENT TECHNICIAN IDANIA WHITESIDE M.D. Performed By: #### C K, ESR, BMP, CRP #### [address] #### MYOG, ALDOLASE #### [facility] , Complete Blood Count Auto Di ffon 09-26-2021 Basophils (Bld) [#/Vol] 0.0 10*3/uL Normal 0.0-0.2 [facility] Comment on above: Result Comment: PERF ORMED BY: [place] [address] PATHOLOGIST WHEEL ALIGNMENT TECHNICIAN IDANIA WHITESIDE M.D. Performed By: #### C K, ESR, BMP, CRP #### [facility] [address] [place] [address] [place] #### MYOG, ALDOLASE #### [facility] , Basophils/100 WBC (Bld) 0.3 % Normal . [facility] Comment on above: Performed By: #### C K, ESR, BMP, CRP #### [place] [address] [place] #### MYOG, ALDOLASE #### [facility] , Eosinophils (Bld) [#/Vol] 0.1 10*3/uL Normal 0.0-0.45 [facility] Comment on above: Performed By: #### C K, ESR, BMP, CRP #### [address] #### MYOG, ALDOLASE #### [facility] , Eosinophils/100 WBC (Bld) 1.8 % Normal . [facility] Comment on above: Performed By: #### C K, ESR, BMP, CRP #### [address] #### MYOG, ALDOLASE #### [facility] , Erythrocyte distribution width (RBC) [Ratio] 15.1 % Normal 11.9-15.3 [facility] Comment on above: Performed By: #### C K, ESR, BMP, CRP #### [address] #### MYOG, ALDOLASE #### [facility] , Hematocrit (Bld) [Volume fraction] 28.3 % Low 34.0-46.4 [facility] Comment on above: Performed By: #### C K, ESR, BMP, CRP #### [address] #### MYOG, ALDOLASE #### [facility] , Hemoglobin (Bld) [Mass/Vol] 9.3 g/dL Low 11.8-15.4 [facility] Comment on above: Performed By: #### C K, ESR, BMP, CRP #### [address] #### MYOG, ALDOLASE #### [facility] , Lymphocytes (Bld) [#/Vol] 0.7 10*3/uL Low 1.00-4.8 [facility] Comment on above: Performed By: #### C K, ESR, BMP, CRP #### [address] #### MYOG, ALDOLASE #### [facility] , Lymphocytes/100 WBC (Bld) 10.6 % Normal . [facility] Comment on above: Performed By: #### C K, ESR, BMP, CRP #### [address] #### MYOG, ALDOLASE #### [facility] , MCH (RBC) [Entitic mass] 30.8 pg Normal 24.7-34.3 [facility] Comment on above: Performed By: #### C K, ESR, BMP, CRP #### [address] #### MYOG, ALDOLASE #### [facility] , MCV (RBC) [Entitic vol] 93.9 fL Normal 80-100 [facility] Comment on above: Performed By: #### C K, ESR, BMP, CRP #### [address] #### MYOG, ALDOLASE #### [facility] , Mean Corpuscular HGB Conc 32.8 g/dL Normal 32.0-35.0 [facility] Comment on above: Performed By: #### C K, ESR, BMP, CRP #### [address] #### MYOG, ALDOLASE #### [facility] , Monocytes (Bld) [#/Vol] 0.7 10*3/uL Normal 0.0-0.8 [facility] Comment on above: Performed By: #### C K, ESR, BMP, CRP #### [place] [address] [place] #### MYOG, ALDOLASE #### [facility] , Monocytes/100 WBC (Bld) 9.8 % Normal . [facility] Comment on above: Performed By: #### C K, ESR, BMP, CRP #### [facility] [address] [place] [address] [place] #### MYOG, ALDOLASE #### [facility] , Neutrophils (Bld) [#/Vol] 5.5 10*3/uL Normal 1.8-7.7 [facility] Comment on above: Performed By: #### C K, ESR, BMP, CRP #### [place] [address] [place] #### MYOG, ALDOLASE #### [facility] , Neutrophils/100 WBC (Bld) 77.5 % Normal . [facility] Comment on above: Performed By: #### C K, ESR, BMP, CRP #### [place] [address] [place] #### MYOG, ALDOLASE #### [facility] , Nucleated RBC/100 WBC (Bld) [Ratio] 0.1 % Normal 0-0.5 [facility] Comment on above: Performed By: #### C K, ESR, BMP, CRP #### [address] #### MYOG, ALDOLASE #### [facility] , Platelet mean volume (Bld) [Entitic vol] 7.7 fL Normal 6.3-10.7 [facility] Comment on above: Performed By: #### C K, ESR, BMP, CRP #### [facility] [address] [place] [address] [place] #### MYOG, ALDOLASE #### [facility] , Platelets (Bld) [#/Vol] 274 10*3/uL Normal 150-450 [facility] Comment on above: Performed By: #### C K, ESR, BMP, CRP #### [address] [place] [address] [place] #### MYOG, ALDOLASE #### [facility] , RBC (Bld) [#/Vol] 3.02 10*6/uL Low 3.60-5.00 [facility] Comment on above: Performed By: #### C K, ESR, BMP, CRP #### [facility] [address] [place] [address] [place] #### MYOG, ALDOLASE #### [facility] , WBC (Bld) [#/Vol] 7.0 10*3/uL Normal 4.5-11.0 [facility] Comment on above: Performed By: #### C K, ESR, BMP, CRP #### [address] #### MYOG, ALDOLASE #### [facility] , Comprehensive Metabolic Pane huber 09-26-2021 Albumin [Mass/Vol] 2.5 g/dL Low 3.2-5.5 [facility] Comment on above: Performed By: #### C K, ESR, BMP, CRP #### [facility] [address] [place] [address] #### MYOG, ALDOLASE #### [facility] , Albumin/Globulin [Mass ratio] 0.8 {ratio} Normal [facility] Comment on above: Performed By: #### C K, ESR, BMP, CRP #### [facility] [address] [place] [address] [place] #### MYOG, ALDOLASE #### [facility] , ALP [Catalytic activity/Vol] 89 U/L Normal 32-92 [facility] Comment on above: Performed By: #### C K, ESR, BMP, CRP #### [facility] [address] [place] [address] [place] #### MYOG, ALDOLASE #### [facility] , ALT [Catalytic activity/Vol] 25 U/L Normal 10-60 [facility] Comment on above: Performed By: #### C K, ESR, BMP, CRP #### [facility] [address] [place] [address] [place] #### MYOG, ALDOLASE #### [facility] , AST [Catalytic activity/Vol] 46 U/L High 10-42 [facility] Comment on above: Performed By: #### C K, ESR, BMP, CRP #### [address] #### MYOG, ALDOLASE #### [facility] , Bilirubin [Mass/Vol] 0.8 mg/dL Normal 0.3-1.2 [facility] Comment on above: Performed By: #### C K, ESR, BMP, CRP #### [address] #### MYOG, ALDOLASE #### [facility] , Calcium [Mass/Vol] 7.5 mg/dL Low 8.2-10.2 [facility] Comment on above: Performed By: #### C K, ESR, BMP, CRP #### [address] #### MYOG, ALDOLASE #### [facility] , Chloride [Moles/Vol] 89 mmol/L Low 95-114 [facility] Comment on above: Performed By: #### C K, ESR, BMP, CRP #### [place] [address] [place] #### MYOG, ALDOLASE #### [facility] , CO2 [Moles/Vol] 32.0 mmol/L High 22.0-30.0 [facility] Comment on above: Performed By: #### C K, ESR, BMP, CRP #### [place] [address] [place] #### MYOG, ALDOLASE #### [facility] , Creatinine [Mass/Vol] 1.16 mg/dL High 0.44-1.03 [facility] Comment on above: Performed By: #### C K, ESR, BMP, CRP #### [facility] [address] [place] [address] [place] #### MYOG, ALDOLASE #### [facility] , Creatinine Clr Calc Pharmacy 48.01 [facility] Comment on above: Performed By: #### C K, ESR, BMP, CRP #### [place] [address] [place] #### MYOG, ALDOLASE #### [facility] , Estimated GFR ( Radha 56 [facility] Comment on above: Result Comment: GFR estimated reference range: According to KDOQI guidelines, <60 ml/min/1.73m2 is sufficient to diagnose a patient with chronic kidney disease. Performed By: #### C K, ESR, BMP, CRP #### [facility] [address] [place] [address] [place] #### MYOG, ALDOLASE #### [facility] , Estimated GFR (Non- Am 46 [facility] Comment on above: Performed By: #### C K, ESR, BMP, CRP #### [place] [address] [place] #### MYOG, ALDOLASE #### [facility] , Globulin (S) [Mass/Vol] 3.2 g/dL [facility] Comment on above: Performed By: #### C K, ESR, BMP, CRP #### [facility] [address] [place] [address] [place] #### MYOG, ALDOLASE #### [facility] , Glucose [Mass/Vol] 145 mg/dL High 70-100 [facility] Comment on above: Result Comment: [place] om Glucose Reference Range is dependent on time and content of last meal. Glucose of more than 200 mg/dL in a nonstressed, ambulatory subject supports the diagnosis of Diabetes Mellitus. ADA recommended reference range Performed By: #### C K, ESR, BMP, CRP #### [facility] [address] [place] [address] [place] #### MYOG, ALDOLASE #### [facility] , Potassium [Moles/Vol] 3.0 mmol/L Low 3.5-5.1 [facility] Comment on above: Performed By: #### C K, ESR, BMP, CRP #### [place] [address] [place] #### MYOG, ALDOLASE #### [facility] , Protein [Mass/Vol] 5.7 g/dL Low 6.1-7.9 [facility] Comment on above: Performed By: #### C K, ESR, BMP, CRP #### [facility] [address] [place] [address] [place] #### MYOG, ALDOLASE #### [facility] , Sodium [Moles/Vol] 135 mmol/L Low 136-146 [facility] Comment on above: Performed By: #### C K, ESR, BMP, CRP #### [address] #### MYOG, ALDOLASE #### [facility] , Urea nitrogen [Mass/Vol] 48 mg/dL High 9-23 [facility] Comment on above: Performed By: #### C K, ESR, BMP, CRP #### [facility] [address] [place] [address] [place] #### MYOG, ALDOLASE #### [facility] , Creatine Kinaseon 09-26-2021 CK [Catalytic activity/Vol] 161 U/L Normal 22-269 [facility] Comment on above: Result Comment: PERF ORMED BY: [place] [address] PATHOLOGIST WHEEL ALIGNMENT TECHNICIAN IDANIA WHITESIDE M.D. Performed By: #### C K, ESR, BMP, CRP #### [place] [address] [place] #### MYOG, ALDOLASE #### [facility] , ECG 12 lead ECGon 09-26-2021 ECG 12 lead ECG [facility] [place] [place] [address] Electrocardiograph Report Signed Patient: Alyce David MR#: [id number] : 1955 Acct:[id number] Age/Sex: 66 / F ADM Date: 09/25/21 Loc: 4N Room: [address] [place] [address] Type: DIS IN Attending Dr: Matthew Laird [...] By Óscar Alejandro DO 09/[address] [facility] ECH echo transthoracicon ECH echo transthoracic [facility] [place] [address] Echocardiogram Signed Patient: Alyce David MR#: [id number] : 1955 Acct:[id number] Age/Sex: 66 / F ADM Date: 09/25/21 Loc: 4N Room: [address] [place] [address] Type: DIS IN Attending Dr: Matthew Laird DO Ordering Provider: Kirstie Scott MD Date of Service: 09/25/2103/11/2245 ECH/ECH echo transthoracic: abn Copies to: Maranda Farrell [...] mmHg RAP systole: 8.0 mmHg Transcribed By: SCV Performed At: 09/26/21 1506 Signed By: Maranda Farrell MD, FACC 09/26/[address] [facility] Erythrocyte Sedimentation Ra getachew 09-26-2021 ESR (Bld) [Velocity] 45 mm/h High 0-29 [facility] Comment on above: Result Comment: PERF ORMED BY: [place] [address] PATHOLOGIST WHEEL ALIGNMENT TECHNICIAN IDANIA WHITESIDE M.D. Performed By: #### C K, ESR, BMP, CRP #### [address] #### MYOG, ALDOLASE #### [facility] , Ferritinon 09-26-2021 Ferritin [Mass/Vol] 669.7 ng/mL High 11-306.8 [facility] Comment on above: Order Comment: Comme nt add Comment add Performed By: #### C K, ESR, BMP, CRP #### [facility] [address] [place] [address] #### MYOG, ALDOLASE #### [facility] , Free T4 (Free Thyroxine)on 0 09-26-2021 Free T4 [Mass/Vol] 1.25 ng/dL High 0.61-1.12 [facility] Comment on above: Order Comment: Comme nt add Comment add Result Comment: PERF ORMED BY: [place] [address] PATHOLOGIST WHEEL ALIGNMENT TECHNICIAN IDANIA WHITESIDE M.D. Performed By: #### C K, ESR, BMP, CRP #### [place] [address] [place] #### MYOG, ALDOLASE #### [facility] , Iron and TIBC Profileon % Iron Saturation 9.0 % Low 20-50 [facility] Comment on above: Order Comment: Comme nt add Comment add Performed By: #### C K, ESR, BMP, CRP #### [facility] [address] [place] [address] [place] #### MYOG, ALDOLASE #### [facility] , Iron [Mass/Vol] 28 ug/dL Low 40-150 [facility] Comment on above: Order Comment: Comme nt add Comment add Performed By: #### C K, ESR, BMP, CRP #### [facility] [address] [place] [address] #### MYOG, ALDOLASE #### [facility] , Total Iron Binding Capacity 300 ug/dL Normal 255-450 [facility] Comment on above: Order Comment: Comme nt add Comment add Performed By: #### C K, ESR, BMP, CRP #### [facility] [address] [place] [address] #### MYOG, ALDOLASE #### [facility] , Transferrin [Mass/Vol] 214 mg/dL Normal 180-[address] [facility] Comment on above: Order Comment: Comme nt add Comment add Performed By: #### C K, ESR, BMP, CRP #### [facility] [address] [place] [address] #### MYOG, ALDOLASE #### [facility] , Magnesiumon 09-26-2021 Magnesium [Mass/Vol] 2.7 mg/dL High 1.6-2.6 [facility] Comment on above: Result Comment: PERF ORMED BY: [place] [address] PATHOLOGIST WHEEL ALIGNMENT TECHNICIAN IDANIA WHITESIDE M.D. Performed By: #### C K, ESR, BMP, CRP #### [facility] [address] [place] [address] [place] #### MYOG, ALDOLASE #### [facility] , Myoglobinon 09-26-2021 Myoglobin [Mass/Vol] 108 ng/mL High 25-58 [facility] Comment on above: Result Comment: Perf ormed at: CB - [facility] [address] [id number] [employer] Rough Grade: Rhys Rivera PhD, Phone: [phone] Performed By: #### C K, ESR, BMP, CRP #### [address] #### MYOG, ALDOLASE #### [facility] , Phosphoruson 09-26-2021 Phosphate [Mass/Vol] 3.5 mg/dL Normal 2.5-4.6 [facility] Comment on above: Result Comment: PERF ORMED BY: [place] [address] PATHOLOGIST WHEEL ALIGNMENT TECHNICIAN IDANIA WHITESIDE M.D. Performed By: #### C K, ESR, BMP, CRP #### [address] #### MYOG, ALDOLASE #### [facility] , Triiodothyronine (T3) Freeon 09-26-2021 Triiodothyronine (T3) Free 2.60 pg/mL Normal 2.50-3.90 [facility] Comment on above: Result Comment: PERF ORMED BY: [place] [address] PATHOLOGIST WHEEL ALIGNMENT TECHNICIAN IDANIA WHITESIDE M.D. Performed By: #### C K, ESR, BMP, CRP #### [address] #### MYOG, ALDOLASE #### [facility] , Vit. B12/Folate Profileon Cobalamin (Vitamin B12) [Mass/Vol] 795 pg/mL Normal 180-914 [facility] Comment on above: Order Comment: Comme nt add Comment add Performed By: #### C K, ESR, BMP, CRP #### [address] #### MYOG, ALDOLASE #### [facility] , Folate 7.3 ng/mL Normal >5.9 [facility] Comment on above: Order Comment: Comme nt add Comment add Result Comment: Shalini te reference range: >5.9 ng/ml The WHO technical consultation on folate and vitamin b12 deficiencies has determined that folate concentrations less than 4 ng/ml are considered deficient. Performed By: #### C K, ESR, BMP, CRP #### [address] #### MYOG, ALDOLASE #### [facility] , B-Type Natriuretic Peptideon 09-25-2021 Natriuretic peptide B (Bld) [Mass/Vol] 577.0 pg/mL High 5-100 [facility] Comment on above: Result Comment: PERF ORMED BY: [place] [address] PATHOLOGIST WHEEL ALIGNMENT TECHNICIAN IDANIA WHITESIDE M.D. Performed By: #### C OVID 19 [facility] #### [address] COVID-19 Antigenon 2 COVID-19 [facility] [...] its performance Kate Disclaimer characteristic determined by [employer] and Kate Disclaimer validated at [facility]. This Kate Disclaimer test has not been FDA cleared [...] Emergency Use Authorization for Coronavirus Kate Disclaimer iseas during the Public Health Emergency) Kate Disclaimer [...] is terminated or revoked sooner. PERFORMED BY: [facility] [place] [address] PATHOLOGIST WHEEL ALIGNMENT TECHNICIAN IDANIA WHITESIDE M.D. Normal [facility] Comment on above: Performed By: #### T SH3 wRFLX, T4F, LIPID, [id number] #### [facility] [address] [place], [place] [id number] [facility] COVID-19 [facility] SARS-CoV-2 (COVID-19) RNA EN+probe Ql (Unsp spec) Negative Normal Negative 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. This test has not been FDA cleared [...] is terminated or revoked sooner. PERFORMED BY: [place] [address] PATHOLOGIST WHEEL ALIGNMENT TECHNICIAN IDANIA WHITESIDE M.D. Performed By: #### C OVID 19 [facility] #### [facility] [address] [place], [place] [id number] [facility] CT abdomen pelvis wo conon 0 09-25-2021 CT abdomen pelvis wo con [facility] [place] [address] [place] [address] CT Scan Report Signed Patient: Alyce David MR#: [id number] : 1955 Acct:[id number] Age/Sex: 66 / F ADM Date: 09/25/21 Loc: ER Room: Type: REG ER Attending Dr: Ordering Provider: Marino Hough DO Date of Service: 09/25/21 CT/CT abdomen pelvis wo con: abd pain, lower abd, weakness Copies to: Marino Senthil DO Kirk CT abdomen and pelvis 09/25/2021. CLINICAL DATA: [...] Serrano Jr., M.D.09/25/2021 8:11 PM Dictation Location: [place] [address] Transcribed By: [facility] 09/25/212010 Dictated By: Tyree Serrano Jr, MD 09/25/211957 Signed By: 09/25/212010 Normal [facility] Complete Blood Count Auto Di ffon 09-25-2021 Basophils (Bld) [#/Vol] 0.0 10*3/uL Normal 0.0-0.2 [facility] Comment on above: Result Comment: PERF ORMED BY: [facility] [address] PATHOLOGIST WHEEL ALIGNMENT TECHNICIAN IDANIA WHITESIDE M.D. Performed By: #### C K, ESR, BMP, CRP #### [place] [address] [place] #### MYOG, ALDOLASE #### [facility] , Basophils/100 WBC (Bld) 0.5 % Normal . [facility] Comment on above: Performed By: #### C K, ESR, BMP, CRP #### [address] #### MYOG, ALDOLASE #### [facility] , Eosinophils (Bld) [#/Vol] 0.2 10*3/uL Normal 0.0-0.45 [facility] Comment on above: Performed By: #### C K, ESR, BMP, CRP #### [address] #### MYOG, ALDOLASE #### [facility] , Eosinophils/100 WBC (Bld) 1.9 % Normal . [facility] Comment on above: Performed By: #### C K, ESR, BMP, CRP #### [place] [address] [place] #### MYOG, ALDOLASE #### [facility] , Erythrocyte distribution width (RBC) [Ratio] 15.4 % High 11.9-15.3 [facility] Comment on above: Performed By: #### C K, ESR, BMP, CRP #### [place] [address] [place] #### MYOG, ALDOLASE #### [facility] , Hematocrit (Bld) [Volume fraction] 30.3 % Low 34.0-46.4 [facility] Comment on above: Performed By: #### C K, ESR, BMP, CRP #### [place] [address] [place] #### MYOG, ALDOLASE #### [facility] , Hemoglobin (Bld) [Mass/Vol] 9.9 g/dL Low 11.8-15.4 [facility] Comment on above: Performed By: #### C K, ESR, BMP, CRP #### [address] #### MYOG, ALDOLASE #### [facility] , Lymphocytes (Bld) [#/Vol] 0.7 10*3/uL Low 1.00-4.8 [facility] Comment on above: Performed By: #### C K, ESR, BMP, CRP #### [address] #### MYOG, ALDOLASE #### [facility] , Lymphocytes/100 WBC (Bld) 8.7 % Normal . [facility] Comment on above: Performed By: #### C K, ESR, BMP, CRP #### [address] #### MYOG, ALDOLASE #### [facility] , MCH (RBC) [Entitic mass] 30.8 pg Normal 24.7-34.3 [facility] Comment on above: Performed By: #### C K, ESR, BMP, CRP #### [address] #### MYOG, ALDOLASE #### [facility] , MCV (RBC) [Entitic vol] 94.0 fL Normal 80-100 F [facility] Comment on above: Performed By: #### C K, ESR, BMP, CRP #### [place] [address] [place] #### MYOG, ALDOLASE #### [facility] , Mean Corpuscular HGB Conc 32.8 g/dL Normal 32.0-35.0 [facility] Comment on above: Performed By: #### C K, ESR, BMP, CRP #### [place] [address] [place] #### MYOG, ALDOLASE #### [facility] , Monocytes (Bld) [#/Vol] 0.7 10*3/uL Normal 0.0-0.8 [facility] Comment on above: Performed By: #### C K, ESR, BMP, CRP #### [place] [address] [place] #### MYOG, ALDOLASE #### [facility] , Monocytes/100 WBC (Bld) 7.8 % Normal . [facility] Comment on above: Performed By: #### C K, ESR, BMP, CRP #### [address] #### MYOG, ALDOLASE #### [facility] , Neutrophils (Bld) [#/Vol] 6.9 10*3/uL Normal 1.8-7.7 [facility] Comment on above: Performed By: #### C K, ESR, BMP, CRP #### [place] [address] [place] #### MYOG, ALDOLASE #### [facility] , Neutrophils/100 WBC (Bld) 81.1 % Normal . [facility] Comment on above: Performed By: #### C K, ESR, BMP, CRP #### [place] [address] [place] #### MYOG, ALDOLASE #### [facility] , Nucleated RBC/100 WBC (Bld) [Ratio] 0.4 % Normal 0-0.5 [facility] Comment on above: Performed By: #### C K, ESR, BMP, CRP #### [place] [address] [place] #### MYOG, ALDOLASE #### [facility] , Platelet mean volume (Bld) [Entitic vol] 8.0 fL Normal 6.3-10.7 [facility] Comment on above: Performed By: #### C K, ESR, BMP, CRP #### [address] #### MYOG, ALDOLASE #### [facility] , Platelets (Bld) [#/Vol] 377 10*3/uL Normal 150-450 [facility] Comment on above: Performed By: #### C K, ESR, BMP, CRP #### [address] #### MYOG, ALDOLASE #### [facility] , RBC (Bld) [#/Vol] 3.22 10*6/uL Low 3.60-5.00 [facility] Comment on above: Performed By: #### C K, ESR, BMP, CRP #### [address] #### MYOG, ALDOLASE #### [facility] , WBC (Bld) [#/Vol] 8.5 10*3/uL Normal 4.5-11.0 [facility] Comment on above: Performed By: #### C K, ESR, BMP, CRP #### [address] #### MYOG, ALDOLASE #### [facility] , Comprehensive Metabolic Pane huber 09-25-2021 Albumin [Mass/Vol] 2.8 g/dL Low 3.2-5.5 [facility] Comment on above: Performed By: #### C OVID 19 [facility] #### [address] Albumin/Globulin [Mass ratio] 0.7 {ratio} Normal [facility] Comment on above: Performed By: #### C OVID 19 [facility] #### [address] ALP [Catalytic activity/Vol] 102 U/L High 32-92 [facility] Comment on above: Performed By: #### C OVID 19 [facility] #### [facility] [address] [place] [address] [facility] ALT [Catalytic activity/Vol] 31 U/L Normal 10-60 [facility] Comment on above: Performed By: #### C OVID 19 [facility] #### [facility] [address] [place] [address] [facility] AST [Catalytic activity/Vol] 60 U/L High 10-42 [facility] Comment on above: Performed By: #### C POTRERO 19 [facility] #### [facility] [address] [place] [id number] [facility] Bilirubin [Mass/Vol] 1.3 mg/dL High 0.3-1.2 [facility] Comment on above: Result Comment: Samp les from patients who have taken Naproxen have shown spurious elevation in Total Bilirubin levels. A metabolite of Naproxen, O-desmethylnaproxen, has been shown to interfere with the Jendrassik-Grof method for measuring Total Bilirubin. Performed By: #### C POTRERO 19 [facility] #### [facility] [address] [place] [id number] [place] Calcium [Mass/Vol] 7.7 mg/dL Low 8.2-10.2 [facility] Comment on above: Performed By: #### C OVID 19 [facility] #### [facility] [address] [place] [id number] [place] Chloride [Moles/Vol] 82 mmol/L Low 95-114 [facility] Comment on above: Performed By: #### C OVID 19 [facility] #### [facility] [address] [place] [address] [place] CO2 [Moles/Vol] 33.7 mmol/L High 22.0-30.0 [facility] Comment on above: Performed By: #### C OVID 19 [facility] #### [facility] [address] [place] [address] [place] Creatinine [Mass/Vol] 1.29 mg/dL High 0.44-1.03 [facility] Comment on above: Performed By: #### C POTRERO 19 [facility] #### [facility] [address] Creatinine Clr Calc Pharmacy 43.51 [facility] Comment on above: Performed By: #### C POTRERO 19 [facility] #### [facility] [address] [place] [address] [facility] Estimated GFR ( Radha 50 [facility] Comment on above: Result Comment: GFR estimated reference range: According to KDOQI guidelines, <60 ml/min/1.73m2 is sufficient to diagnose a patient with chronic kidney disease. Performed By: #### C POTRERO 19 [facility] #### [facility] [address] Estimated GFR (Non- Am 41 [facility] Comment on above: Performed By: #### C [address] #### [facility] [address] Globulin (S) [Mass/Vol] 3.8 g/dL Normal F [facility] Comment on above: Performed By: #### C [address] #### [facility] [address] Glucose [Mass/Vol] 122 mg/dL High 70-100 [facility] Comment on above: Result Comment: [facility] Glucose Reference Range is dependent on time and content of last meal. Glucose of more than 200 mg/dL in a nonstressed, ambulatory subject supports the diagnosis of Diabetes Mellitus. ADA recommended reference range Performed By: #### C POTRERO 19 [facility] #### [facility] [address] [place] [id number] [facility] Potassium Normal 3.5-5.1 [facility] Comment on above: Result Comment: DAIN SUMMERS NOTIFIED OF REDRAW. BMF 1839 Specimen hemolyzed, redraw requested Performed By: #### C POTRERO 19 [facility] #### [facility] [address] [place] [id number] [facility] Protein [Mass/Vol] 6.6 g/dL Normal 6.1-7.9 [facility] Comment on above: Performed By: #### C OVID 19 [facility] #### [facility] [address] [place] [address] Sodium [Moles/Vol] 132 mmol/L Low 136-146 [facility] Comment on above: Performed By: #### C OVID 19 [facility] #### [facility] [address] [place] [address] Urea nitrogen [Mass/Vol] 52 mg/dL High 9-23 [facility] Comment on above: Performed By: #### C OVID 19 [facility] #### [address] Creatine Kinaseon 09-25-2021 CK [Catalytic activity/Vol] 197 U/L Normal 22-269 [facility] Comment on above: Performed By: #### C OVID 19 [facility] #### [address] Dipstick and Microscopicon 0 09-25-2021 Appearance (U) Cloudy Critically abnormal Clear [facility] Comment on above: Order Comment: Name Collection Type:: Straight Catheter Performed By: #### C K, ESR, BMP, CRP #### [facility] [address] [place] [address] #### MYOG, ALDOLASE #### [facility] , Bacteria,Urine 2+ High None Seen [facility] Comment on above: Order Comment: Name Collection Type:: Straight Catheter Result Comment: --- 09/25/211909 --- Ur Bact previously reported as: 2+ H Performed By: #### C K, ESR, BMP, CRP #### [facility] [address] [place] [address] [place] #### MYOG, ALDOLASE #### [facility] , Bilirubin,Urine Negative Normal Negative [facility] Comment on above: Order Comment: Name Collection Type:: Straight Catheter Performed By: #### C K, ESR, BMP, CRP #### [address] #### MYOG, ALDOLASE #### [facility] , Color (U) Yellow Normal Yellow [facility] Comment on above: Order Comment: Name Collection Type:: Straight Catheter Performed By: #### C K, ESR, BMP, CRP #### [address] #### MYOG, ALDOLASE #### [facility] , Glucose Ql (U) Normal Normal Normal [facility] Comment on above: Order Comment: Name Collection Type:: Straight Catheter Performed By: #### C K, ESR, BMP, CRP #### [address] #### MYOG, ALDOLASE #### [facility] , Hyaline Casts,Urine None Seen Normal 0-1 [facility] Comment on above: Order Comment: Name Collection Type:: Straight Catheter Performed By: #### C K, ESR, BMP, CRP #### [address] #### MYOG, ALDOLASE #### [facility] , Ketones Ql (U) Negative Normal Negative [facility] Comment on above: Order Comment: Name Collection Type:: Straight Catheter Performed By: #### C K, ESR, BMP, CRP #### [address] #### MYOG, ALDOLASE #### [facility] , Leukocyte esterase Test strip Ql (U) 3+ High Negative [facility] Comment on above: Order Comment: Name Collection Type:: Straight Catheter Performed By: #### C K, ESR, BMP, CRP #### [place] [address] [place] #### MYOG, ALDOLASE #### [facility] , Nitrite,Urine Negative Normal Negative [facility] Comment on above: Order Comment: Name Collection Type:: Straight Catheter Performed By: #### C K, ESR, BMP, CRP #### [address] #### MYOG, ALDOLASE #### [facility] , Occult Blood,Urine Trace High Negative [facility] Comment on above: Order Comment: Name Collection Type:: Straight Catheter Result Comment: PERF ORMED BY: [place] [address] PATHOLOGIST WHEEL ALIGNMENT TECHNICIAN IDANIA WHITESIDE M.D. Performed By: #### C K, ESR, BMP, CRP #### [address] #### MYOG, ALDOLASE #### [facility] , Other Casts,Urine None Seen Normal None Seen [facility] Comment on above: Order Comment: Name Collection Type:: Straight Catheter Result Comment: PERF ORMED BY: [place] [address] PATHOLOGIST WHEEL ALIGNMENT TECHNICIAN IDANIA WHITESIDE M.D. Performed By: #### C K, ESR, BMP, CRP #### [address] #### MYOG, ALDOLASE #### [facility] , pH (U) 7.0 [pH] Normal 5.0-9.0 [facility] Comment on above: Order Comment: Name Collection Type:: Straight Catheter Performed By: #### C K, ESR, BMP, CRP #### [address] #### MYOG, ALDOLASE #### [facility] , Protein (U) [Mass/Vol] 30 mg/dL High Negative [facility] Comment on above: Order Comment: Name Collection Type:: Straight Catheter Performed By: #### C K, ESR, BMP, CRP #### [address] #### MYOG, ALDOLASE #### [facility] , RBC,Urine 1-2 Normal 0-4 [facility] Comment on above: Order Comment: Name Collection Type:: Straight Catheter Performed By: #### C K, ESR, BMP, CRP #### [place] [address] [place] #### MYOG, ALDOLASE #### [facility] , Renal Epithelial Cells,Urine None Seen Normal 0-1 [facility] Comment on above: Order Comment: Name Collection Type:: Straight Catheter Performed By: #### C K, ESR, BMP, CRP #### [address] #### MYOG, ALDOLASE #### [facility] , Specificy [place],Urine 1.013 Normal 1.001-1.030 [facility] Comment on above: Order Comment: Name Collection Type:: Straight Catheter Performed By: #### C K, ESR, BMP, CRP #### [address] #### MYOG, ALDOLASE #### [facility] , Squamous Epithelial Cell,Urine 5-9 High 0-2 [facility] Comment on above: Order Comment: Name Collection Type:: Straight Catheter Performed By: #### C K, ESR, BMP, CRP #### [address] #### MYOG, ALDOLASE #### [facility] , Urobilinogen,Urine Normal Normal Normal [facility] Comment on above: Order Comment: Name Collection Type:: Straight Catheter Performed By: #### C K, ESR, BMP, CRP #### [place] [address] [place] #### MYOG, ALDOLASE #### [facility] , WBC,Urine 5-9 High 0-4 [facility] Comment on above: Order Comment: Name Collection Type:: Straight Catheter Performed By: #### C K, ESR, BMP, CRP #### [place] [address] [place] #### MYOG, ALDOLASE #### [facility] , ECG 12 lead ECGon 09-25-2021 ECG 12 lead ECG [facility] Main [place] [address] [place] [address] Electrocardiograph Report Signed Patient: Alyce David MR#: [id number] : 1955 Acct:[id number] Age/Sex: 66 / F ADM Date: 09/25/21 Loc: Room: [address] [place] [address] Type: DIS IN Attending Dr: Matthew Laird [...] Prolonged QT Confirmed by Marino HOUGH DO ([id number]) on 09/25/2021 9:10:39 PM Referred By: Electronically Signed By:Marino HOUGH DO Transcribed By: MUS Signed By Marino Hough DO 0 09/25/[address] [facility] Glucose Poct Glucometerson 0 09-25-2021 Glucose [Mass/Vol] 148 mg/dL Normal [facility] Comment on above: Result Comment: [facility] Glucose Reference Range is dependent on time and content of last meal. Glucose of more than 200 mg/dL in a nonstressed, ambulatory subject supports the diagnosis of Diabetes Mellitus. PERFORMED BY: [place] [address] PATHOLOGIST WHEEL ALIGNMENT TECHNICIAN IDANIA WHITESIDE M.D. Performed By: #### C K, ESR, BMP, CRP #### [place] [address] [place] #### MYOG, ALDOLASE #### [facility] , Magnesiumon 09-25-2021 Magnesium [Mass/Vol] 1.1 mg/dL Low 1.6-2.6 [facility] Comment on above: Performed By: #### C OVID 19 [facility] #### [facility] [address] [place] [address] Partial Thromboplastin Timeo n 09-25-2021 aPTT Coag (Bld) [Time] 32.0 s Normal 25.1-36.[address] [facility] Comment on above: Result Comment: PERF ORMED BY: [place] [address] PATHOLOGIST WHEEL ALIGNMENT TECHNICIAN IDANIA WHITESIDE M.D. Performed By: #### C OVID 19 [facility] #### [address] Prothrombin Time INRon 09-25 INR Coag (PPP) [Relative time] 1.4 {INR} Normal [facility] Comment on above: Result Comment: INR Therapeutic [...] #### C K, ESR, BMP, CRP #### [facility] [address] [place] [address] #### MYOG, ALDOLASE #### [facility] , PT Coag (PPP) [Time] 15.9 s High 9.0-12.9 [facility] Comment on above: Performed By: #### C K, ESR, BMP, CRP #### [facility] [address] [place] [address] #### MYOG, ALDOLASE #### [facility] , Redraw Potassiumon Potassium [Moles/Vol] 2.1 mmol/L Off scale low 3.5-5.1 [facility] Comment on above: Order Comment: Comme nt use ed blood Comment us ed blood Result Comment: Crit ical value result called at 1921 on 09/25/21 PERFORMED BY: [place] [address] PATHOLOGIST WHEEL ALIGNMENT TECHNICIAN IDANIA WHITESIDE M.D. Performed By: #### T SH3 wRFLX, T4F, LIPID, [id number] #### [address] Kate Ag Negativeon 09-26-19 Kate Ag Negative Negative Normal Negative [facility] Comment on above: Result Comment: This is a duplicate Kate SARS Antigen (MY) result to be used for statistical tracking purpose only. PERFORMED BY: [place] [address] PATHOLOGIST WHEEL ALIGNMENT TECHNICIAN IDANIA WHITESIDE M.D. Performed By: #### T SH3 wRFLX, T4F, LIPID, [id number] #### [address] Thyroid Stimulating Hormoneo n 09-25-2021 TSH Qn 11.80 m[IU]/L High 0.45-5.33 [facility] Comment on above: Result Comment: PERF ORMED BY: [place] [address] PATHOLOGIST WHEEL ALIGNMENT TECHNICIAN IDANIA WHITESIDE M.D. Performed By: #### C OVID 19 [facility] #### [address] Troponin I High Sensitivityo n 09-25-2021 Troponin I High Sensitivity 22 pg/mL High 0-15 [facility] Comment on above: Result Comment: PERF ORMED BY: [place] [address] PATHOLOGIST WHEEL ALIGNMENT TECHNICIAN IDANIA WHITESIDE M.D. Performed By: #### C OVID 19 [facility] #### [place] [id number] [facility] Urine Cultureon 09-25-2021 Bacteria identified Cx Nom (U) ORGANISM: Diptheroids (O:DIPTH) [place] Count >100,000 Organism Comments Organism not Routinely Tested for Susceptibilities PERFORMED BY: [place] [address] PATHOLOGIST WHEEL ALIGNMENT TECHNICIAN IDANIA WHITESIDE M.D. [facility] Comment on above: Performed By: #### C K, ESR, BMP, CRP #### [place] [address] [place] #### MYOG, ALDOLASE #### [facility] , XR chest 1V portableon 09-25 XR chest 1V portable [facility] Main [place] [address] [place] [address] XRay Report Signed Patient: Alyce David MR#: [id number] : 1955 Acct:[id number] Age/Sex: 66 / F ADM Date: 09/25/21 Loc: ER Room: Type: [facility] ER Attending Dr: Ordering Provider: Marino Hough [...] Serrano Jr., M.D.09/25/2021 8:43 PM Dictation Location: [place] [address] Transcribed By: [facility] 09/25/212042 Dictated By: Tyree Serrano Jr, MD 09/25/212040 Signed By: 09/25/212042 [facility] Consent Formson 10-17-2020 Consent Forms [id number] .00OTGTIFF [facility] Coding Summaryon 09-21-2020 Coding Summary HTMLBase 64 WggbiodoMHw7vLt+PGhlY WQ+RL2KJVDiK32jaCSgeN 5TS9tTPH9QYVQEHBNAWJ2 LKM2saYY5QDomM9RqtfDb IzmnaMGgFD57OTh6WKC6f JmgYDgglD5tlXMmV9y8Pz NvYC96kX62EWlbOGYkVdF 3LjZpbjsgbWFy A1nrUuEtzUJyJmu+PHRhY mxlIHdpZHRoPScxMDAlJy JulIpiSD9uJh8hNXUbLUA vbGxhcHNlOiBj d3hwUANaIRnjWA4svCtcD 0NafAR0LGDbm7w5Yg12hJ I+KALjKMF6pFmuLQrys76 2VnTjf2gqDEK0 kLGbMCpeKIQ6I56lo6X4X PKtGRPzLFY4yDS0mY7ieX ypwjpvP5IusQHgUoQ1MDR 5iEHefY0zgGes qcxksK1tIup+T20ZUD8GK HKSSS3IOww3N0BvIunncV I+CE30IHFsHY90bRUlyGJ fk3hoyKq3CpNd JVYiLYH3fOohFDmez5RwJ WKuR55mfWIme8H4RCJptK numANmNtTkjAC8hT2vXRb brsfjh7cxijdl Qcdhe2nhnl80hR47Q76yQ JcfIPMqQCW7SDUlUTUbtU kdaq3auU9yCk7+ESqiy0y zt9irjBa3OpIb TDCabhFwdDbvRHV5e9UiH z70L1EqiCcgm7JxChj4hy 89tTNor6J7pNA4VVtuLGD juM9kYSjuPmI2 LQIfJsEclD99fRBnJDutJ j7hhKpgsDyqAF9kVHKbfw dyADHihC0cAOCoqBHueNt wXV8xCIFzektn v401RgCwZWB2WLKciEKgV 0HqoM5sXwZuEGSrTRAxL9 XguHErNByvA919EFicWmY 0NWIrwsJrY9Wn YLGnzPgxDhG4c8J7Kr6Be 7EquxvrYWY3CDxyMUPpKw C1SzJtKhI6G5UnJsc1VTC qoUyjAJ2mE3Zp SLSoupdraqcgfIQ3MXPiV MLtdS86bLFxDYbjJr2gm0 W3k361RREqVBZsaG99Ql5 udDogMTBwdCBU bJ8rkgtdn8fbanvnQeLnH QKoXEx9TMa2MEOkgEhzRp DmAQQ9CyI5NZQ3mFVuuR7 jfPerluswrJ4o Oyc+A02tzT7uOCA5XIW8g qzsHNPqceOhCE60PA37A1 RyPjwvdGFibGU+PGRpdiB siLgtTD7gQkDc v4jyq2IpAChrE0LmVZKfG WfdGci9UQPnJUV3sSS9sY 0kJIVpOGtrn0S6iJC9K5P ufvVtfo4wn0vr WAFwNNmbD00cxQWyj1X0R ZQidON3SYNhtFouKzRqfS 93Oyc+HIRkaNerd9AdRdw zn2luz8ayrVm8 MiIcUOBjslFqhJhqRXH4j 8QeYs82A19yXSheEWBrNP QlPLUaORUgwEahee2pqV2 wIi8+PGNvbCB3 zLY1zN6aVDDaZnZ6STgwL 674DzOxcNZjAhkfr7yza4 nyoGp9ToMqLOOphpUozTy oIBL2o9BfYf09 P76iZJuvDWBpUALeBTHvO KYbpBuihx1wfY3bGe0+PC 2kl6srmq61oZ32eHZ+PHR cYFJ0rNshRThz FRFwoV6cRJgkKoB6WNPnH eYecS98aLZiKEixEj2niY swkCbqQI1iQLTeissri46 4GxOma9hdXIRf wJOnYUmvWVS8V83hb9X2N OJwFCTgYHY7fKX8sO8bvM lnbjogbGVmdDsgdmVydGl bJFhuYDhyM691 IHRvcDsnPlBhdGllbnQgT sYrOSi5O7TfSai6WLBwbK ftYD8jzAFiMNamJg1edYe bzUefFY8qSXJu ihsby384WdHqn1xmAGNwg JPiVPvuMEK5R56fr9V4GB ClFOTeWHJ4wTZ7hA8pcTy nbjogbGVmdDsg dpDpcReuOBqzQRbpO247Q HRvcDsnPkJpcnRoIERhdG H0UB01SY75zIYva8X4xZS 5F1LxNCIjpzgi belviAH2KJObNITifO25O l0ruTqsKr7bVKEnORI2OT IocCYwI0UfxG0iJkKeDAB rVXUtU9WspCHv MVwxY668FZbpPsP5EXBqr dLmC3UwTKPchMjqEqS7f6 C5Db7QJ0Z4KO05VH96kZF it3U7dPT7J4Zt GJXdkfqqcogyoXV1GYRqL JDmpC80Ei8bqHyrIz6wQU OtJSW6FMXsgRYzD1FvlT9 yOiAjMDAwMDAw A4IemSWlXAawV197ISrgY kW3PUNirdUiN4DwLPIhhW uvFrK1l2K8La3DKFo6XQ4 6ZF06jZYaf5G5 oSN9J8SlGZBnlczobpmmo LH2DOVkEQOloJ38Du4agU nwRx8fLMAeZVO5AKWjfTQ zU9EmaT8mWjMy BGBjCVEbH0GioIDeIRjrD 170DVluXxY1MJItdlAgI5 LtTJLdaLgzDhS2e2E2Ap6 PEUTcTO15HRD8 pKE0BK61UC00N1FdPjsdo GFibGU+PHRhYmxlIHdpZH RoPScxMDAlJyBzdHlsZT0 lTz0kWRSpWZWj fXdehYSoVqOqz3moDYSxJ KskLU5qaLwaP6XjdVT8FR Udk6r0Qq80X52nC8BlpCA +QXYnmQE9xRI2 yO7oGjSfAtY4LLrfY534H iJvfYTlMgwbr7pyd9nqlZ e3CdV8VTEgdqPfxVpoOHD 4k5KbTi23W14a IHdpZHRoPSIxNSUiIHZhb Bsavh8lmR4cDr8+PGNvbC H1uJP2xG5aWmIiOrB6BEg rE264WmDtxIYd Gregz9hoe4ljkDg5YqQmX SFrdiMhvKluGJQ7x9IwSp 37V4WkiNoyo8QkTds0ux6 0oPShj4J8fSM0 T2MwJXSzrgldoIEifQfeU E7sGFFwaznqJFXzyO9tID OaE9f8HzFzSlA5DFdmR2N pxkD8QWQdwFAm UAbcYUA8N18xs5W0VHGuP EZmTXI2xDJ5eZ8yoLwgfa ogbGVmdDsgdmVydGljYWw rKSxfU838UUHq pMojMKYkpS6yXQRpyIYkl IbsJE8vDRGazeaoEpyOWx 1BTiwgREFSTEVORSBNQVJ JRTwvdGQ+PHRk MBN9dHabSGxaPSZxhK8jC BHuH9t2TlNxKvD0JQbgZ2 XlCAZnajanDy07oR8wIxH iNwC8DSchH5Wy rbL0PPBywDChOBreGWX7G 32kh7P0AWMbPRUsRVJ6zB P1pY4ulSzplayiaMKzpPp gdmVydGljYWwt UYoaK826JRHxoPxpJgSqN bX1JwV4QHW5Y1VyUkk1QZ CdfOvnRY9dfMJdLFwrRf7 jpUukzYgcBN4m KDDbzrqcODUydC1fIJHkg APqhPrbKS0lHGCdarpde9 33EfPuSSM7BFFusSJcO9H opV5vVeHbPQDs MDVjM7DroBYzKMzqT285E RzjKzF7FTBlpmXtM7JxIQ JtiRwvNvV5w6N1Bk58PxG ZZWFyczwvdGQ+ SKDaGPE8jSzyMTotGKUyc W5rEUJdP2f6ExMyEaD9TX tqB2EvIUGzwnvyVo59mS2 rCrUoBuJ9GBkb L4JkjoJ1CMNnnGLaCZalJ EL5I78fu9S9DPNgNPRoWU X8iHB6pM8igFkgrsxmwWZ mdDsgdmVydGlj ZNplHHukC752UOYlmXsiN kZFTUFMRTwvdGQ+PHRkIH A1pYycHYisCFXcaX7cADY oL0y2MaQnHeL5 KMckF5MlKLKqvhwwDv82e F4sFqInPvM2BUgvO8Svbj M0WYWfnKOoMFwxUXF3V36 qc0D6RSCtQENr VJS7vQJ0rA6bxQgupzrql GVmdDsgdmVydGljYWwtYW abU722WHZriHpkLuHgI8Z ycmluZyBPdXRw QPLiNP37OX16RN47F3DxW jwvdGFibGU+PHRhYmxlIH dpZHRoPScxMDAlJyBzdHl yBP1nAb1fRASe EGInvJvfoALyPaDpq6qnY JSdXXirTD8cvUvuV2AnoP J9HGZda6o8Ua57S49wQ4V vdXA+PGNvbCB3 rTG6rV5tDeQrLjI0QNeeH 748MwXrdQSfOqgeo4ozz2 rwqHe6XmSoJKDdbnIekKw xVOW1d3SnKt08 D87vBRowLFVpEXGeAFSyX WNyeIhayk1rnA1cAz8+PG ZxtKM0sZA2sB8lUvPzYvV 8PQreN059LwLx aINuWhlaK44sS0XlqZR+P UQlVgo0LQNsvQrtVN0xlZ FcFKseZv9wKEI1UjAjFpD aBXhgR0PoDBEw qqocdytdpIP3ASDqRBSdn H56Pn2rlKkvSp0uOXLlVQ D0ZGAatOPiB9XjlA2nQwJ hTNAfDRGlN7Vb cRItXHaiK325TRnlFnL9U DSheeBrS6WrVAIakGvsMp W2f3T9Ih2JaWphmEGiCG3 wFgVfUWy4A2Eu Trd4JTKtsZtnPD8lgUFwM UoiCu7ltGudcUkiMZ1dQE Lltzfan634RyYcy6fpBRB wcHQgVGltZXM7 D51zg9M4FBFnQDAbUFI8x LN4gD1irKlylmzdeWJusM kmbpFjuTihQKvaBNesY31 6IHRvcDsnPkZJ Nmu1S3CsWft7EYYqkFbpF I3zlAXaKXdcGk6ynVnmhI gmCX0eJVMlqfkav590NjB tr7peGIDnxOKc CVdyURY0H76ew5Y5IBCaM BYfZUK9zCA6jM0qoXeixn ogbGVmdDsgdmVydGljYWw jROcsG344CGYq bTdyLe6NSrn1Z6HcZei2Q LFltQobEK7zlUHdILonOd 0ivSxzuRxaXD7wNKIyxyx zr870NrNhe3kk BNEhkESrYNtdXLA7L99pq 8L8OJNgQAIrFPI7uAV7mI 1hbGlnbjogbGVmdDsgdmV ydGljYWwtYWxp B131CNSphVjuEqZquWOdY jwvdGQ+VW24qp18T0XmTo aqUxs4FHNuOLN9mII6aU2 eGWZuTYyvd3D5 [facility] (more content not included)... [facility] Consent Formson 09-19-2020 Consent Forms [id number] .[facility] 09-18-2020 Consent Forms [id number]#1 .[facility] C[facility] Summaryon 03-16-2020 Coding Summary CODING DATE: 03/16/2020 [facility] STATUS: Home PAYOR: Medicare MC ADMIT [...] Corinna Roy Date Saved: 03/16/2020 03:35 pm [facility] Coding Summary CODING DATE: 03/16/2020 [facility] STATUS: Home PAYOR: Medicare MC ADMIT [...] Corinna Roy Date Saved: 03/16/2020 03:35 pm [facility] Provider Orderson 03-16-2020 Provider Orders [id number] .[facility] Orders [id number] .00[facility] .Auto Diff 03-15-2020 Auto Dixie % 9 % Normal -12 [facility] Comment on above: Performed By: #### 1 [id number], [id number], 896663195, 4540086, 8164832045, 4922593, 6962962 ####[facility] (DEFAULT)[address] [place] [address] Baso Abs# 0.0 x10 Normal 0.0-0.2 [facility] Comment on above: Performed By: #### 1 4651405, 6572329346, 215695913, 2900211, 2063718626, 2049916, 4407876 ####[facility] (DEFAULT)[address] [place] [address] 01118 Basophils/100 WBC (Bld) 1.0 % Normal 0.2-2.0 [facility] Comment on above: Performed By: #### 1 9970316, [id number], 698192175, 9214985, 1774779832, 5121453, 4487930 ####[facility] (DEFAULT)[address] [place] [address] 87420 Eos Abs# 0.1 x10 Normal 0.0-0.4 [facility] Comment on above: Performed By: #### 1 8462472, 3263074975, 024706314, 9302403, 4342889011, 9234274, 5947687 ####[facility] (DEFAULT)[address] [place] [address] 81396 Eosinophils/100 WBC (Bld) 2.6 % Normal 0.9-4.0 [facility] Comment on above: Performed By: #### 1 7154845, 6481683662, 753768999, 9092884, 4655370345, 8343998, 6768588 ####[facility] (DEFAULT)[address] [place] [address] 09909 Lymph Abs# 0.7 x10 Low 1.3-2.9 [facility] Comment on above: Performed By: #### 1 8554803, 9793809855, 843236675, 1648768, 6968726028, 5599030, 8988163 ####[facility] (DEFAULT)[address] [place] [address] Lymphocytes/100 WBC (Bld) 16 % Normal 14-48 [facility] Comment on above: Performed By: #### 1 0160226, 8009943813, 453113005, 5735305, 2377476128, 0118603, 4606962 ####[facility] (DEFAULT)[address] [place] [address] Dixie Abs# 0.4 x10 Normal 0.0-0.8 [facility] Comment on above: Performed By: #### 1 4708597, 3590104110, 110519497, 8496475, 3446804290, 1518296, 7536718 ####[facility] (DEFAULT)[address] [place] [address] Neut Abs# 3.0 x10 Normal 1.5-9.2 [facility] Comment on above: Performed By: #### 1 2313979, 6588127214, 943001785, 3305220, 7679639632, 3797692, 1541353 ####[facility] (DEFAULT)[address] [place] [address] Neutrophils/100 WBC (Bld) 72 % Normal 44-88 [facility] Comment on above: Performed By: #### 1 4053641, 5936988331, 979860568, 2940730, 3186612815, 8093522, 0169875 ####[facility] (DEFAULT)[address] [place] [address] 57360 CBC w/ Auto Diffon 0 Erythrocyte distribution width (RBC) [Ratio] 12.7 % Normal 11.5-15.0 [facility] Comment on above: Performed By: #### 1 9769964, 2961852146, 292604408, 2369254, 9561303437, 0610462, 8049515 ####[facility] (DEFAULT)[address] [place] [address] Hematocrit (Bld) [Volume fraction] 36.3 % Normal 33.7-40.4 [facility] Comment on above: Performed By: #### 1 4917251, 3509163394, 489888465, 0840416, 4516342851, 3056310, 3537730 ####[facility] (DEFAULT)[address] [place] [address] Hemoglobin (Bld) [Mass/Vol] 11.5 g/dL Normal 11.3-15.9 [facility] Comment on above: Performed By: #### 1 2365505, 7443278637, 076434537, 1365431, 7424256874, 8551863, 0883271 ####[facility] (DEFAULT)[address] [place] [address] Instr WBC 4.2 x10 Invalid Interpretation Code [facility] Comment on above: Performed By: #### 1 6225111, 6561254129, 192025517, 6690485, 1621498019, 5768567, 1779002 ####[facility] (DEFAULT)[address] [place] [address] Man Diff? Auto Normal [facility] Comment on above: Performed By: #### 1 2127053, 8335296758, 948851927, 2441358, 2074753261, 1670450, 1990202 ####[facility] (DEFAULT)[address] [place] [address] MCH (RBC) [Entitic mass] 32 pg Normal 24-34 [facility] Comment on above: Performed By: #### 1 5329020, 8568574335, 006736708, 8180535, 2224364576, 8532730, 7421218 ####[facility] (DEFAULT)[address] [place] [address] MCHC (RBC) [Mass/Vol] 32 g/dL Normal 26-37 [facility] Comment on above: Performed By: #### 1 7790567, 9471715744, 959925755, 0034339, 1174841653, 8661337, 1594617 ####[facility] (DEFAULT)[address] [place] [address] 45859 MCV (RBC) [Entitic vol] 100 fL Normal 81-100 [facility] Comment on above: Performed By: #### 1 6778427, 7911842036, 795423987, 8826637, 7259681067, 4588337, 7848738 ####[facility] (DEFAULT)[address] [place] [address] Platelet 198 x10 Normal 138-427 [facility] Comment on above: Performed By: #### 1 2424410, 2131344039, 122197105, 3935275, 9010449935, 6871117, 2204919 ####[facility] (DEFAULT)[address] [place] [address] Platelet mean volume (Bld) [Entitic vol] 10.0 fL Normal 6.3-10.2 [facility] Comment on above: Performed By: #### 1 9829453, 5491486649, 498468494, 2480214, 3364124029, 8781635, 3357812 ####[facility] (DEFAULT)[address] [place] [address] RBC 3.62 x10 Low 3.70-5.30 [facility] Comment on above: Performed By: #### 1 4369726, 9494525586, 202540299, 6290224, 4633743010, 8021214, 6718038 ####[facility] (DEFAULT)[address] [place] [address] WBC 4.2 x10 Normal 3.5-10.5 [facility] Comment on above: Performed By: #### 1 4438926, 6096547276, 375547591, 7755956, 1277739323, 1847666, 8341217 ####[facility] (DEFAULT)[address] [place] [address] CMP Standardon 03-15-2020 eGFR Non AA >60 Invalid Interpretation Code [facility] Comment on above: Performed By: #### 1 4397892, 1169993560, 037494496, 7282723, 8668487926, 9189820, 4311425 ####[facility] (DEFAULT)[address] [place] [address] 42872 eGFR AA >60 Invalid Interpretation Code [facility] Comment on above: Result Comment: Machine Carton Marker kenny Kidney disease could be indicated at eGFRs of less than 60 ml/min/1.73m2. Kidney Failure is indicated at less than 15 ml/min/1.73m2 Performed By: #### 1 3524846, 2164641543, 699215668, 3417727, 3896817685, 3016772, 3220595 ####[facility] (DEFAULT)[address] [place] [address] Albumin [Mass/Vol] 4.0 g/dL Normal 3.5-5.0 [facility] Comment on above: Performed By: #### 1 7763509, 2476189029, 077479832, 6027400, 1910140071, 7556120, 3279613 ####[facility] (DEFAULT)[address] [place] [address] Albumin/Globulin [Mass ratio] 1.1 {ratio} Low 1.4-2.6 [facility] Comment on above: Performed By: #### 1 8093578, 3721903477, 076884959, 0044928, 0869425660, 1498811, 0667577 ####[facility] (DEFAULT)[address] [place] [address] 13611 Alk Phos 64 IU/L Normal 32-91 [facility] Comment on above: Performed By: #### 1 0913488, 5480283563, 870565391, 6178040, 9107839680, 7373486, 9391873 ####[facility] (DEFAULT)[address] [place] [address] ALT [Catalytic activity/Vol] 17.0 U/L Normal 14.0-54.0 [facility] Comment on above: Performed By: #### 1 6975968, 6931541959, 395821675, 1496789, 9038098556, 3795314, 7230582 ####[facility] (DEFAULT)[address] [place] [address] 02521 Anion gap [Moles/Vol] 14.0 mmol/L Normal 5.0-19.0 [facility] Comment on above: Performed By: #### 1 7112822, 7066090382, 030317308, 9251220, 5401820966, 2306024, 3250043 ####[facility] (DEFAULT)[address] [place] [address] 13772 AST [Catalytic activity/Vol] 21 U/L Normal 15-41 [facility] Comment on above: Performed By: #### 1 [id number], [id number], 651096203, 5136049, 5667990552, 3627844, 0542696 ####[facility] (DEFAULT)[address] [place] [address] Bili Total 0.7 mg/dL Normal 0.3-1.2 [facility] Comment on above: Performed By: #### 1 [id number], [id number], 399256609, 4861032, 7675317354, 9459768, 8044743 ####[facility] (DEFAULT)[address] [place] [address] 98122 Calcium [Mass/Vol] 9.3 mg/dL Normal 8.9-10.3 [facility] Comment on above: Performed By: #### 1 4809617, [id number], 939125955, 0404896, 2864235078, 6466503, 8206642 ####[facility] (DEFAULT)[address] [place] [address] 80830 Chloride [Moles/Vol] 105 mmol/L Normal 101-111 [facility] Comment on above: Performed By: #### 1 [id number], [id number], 069940912, 3433239, 7796298423, 8324662, 4673995 ####[facility] (DEFAULT)[address] [place] [address] 82900 CO2 [Moles/Vol] 24 mmol/L Normal 21-32 [facility] Comment on above: Performed By: #### 1 9681322, [id number], 048570098, 7368848, 8871282987, 2597166, 4369835 ####[facility] (DEFAULT)[address] [place] [address] 21497 Creatinine [Mass/Vol] 0.76 mg/dL Normal 0.60-1.30 [facility] Comment on above: Performed By: #### 1 9287971, 2820824342, 750787464, 5890972, 6569605280, 7075235, 3154252 ####[facility] (DEFAULT)[address] [place] [address] 01657 Globulin (S) [Mass/Vol] 3.5 g/dL Normal 1.5-4.3 [facility] Comment on above: Performed By: #### 1 6260399, 4610800703, 574661358, 5304402, 3644612184, 8991395, 5427690 ####[facility] (DEFAULT)[address] [place] [address] 07019 Glucose [Mass/Vol] 113.0 mg/dL Normal 74.0-118.0 [facility] Comment on above: Performed By: #### 1 7142225, 3674129378, 681383845, 1930769, 0706993738, 1309322, 5835488 ####[facility] (DEFAULT)[address] [place] [address] 55678 Osmolality 280 mOsm/L Invalid Interpretation Code [facility] Comment on above: Performed By: #### 1 7679451, [id number], 046183455, 5342154, 8617343663, 9930111, 4185288 ####[facility] (DEFAULT)[address] [place] [address] 14396 Potassium [Moles/Vol] 4.3 mmol/L Normal 3.6-5.1 [facility] Comment on above: Performed By: #### 1 2991392, 6814242169, 893316320, 4639749, 1241674313, 5443105, 0473747 ####[facility] (DEFAULT)[address] [place] [address] 24408 Protein [Mass/Vol] 7.5 g/dL Normal 6.5-8.1 [facility] Comment on above: Performed By: #### 1 6468057, 6889798342, 024892540, 3635541, 5065838394, 1489197, 3099487 ####[facility] (DEFAULT)[address] [place] [address] 32349 Sodium [Moles/Vol] 139.0 mmol/L Normal 136.0-144.0 [facility] Comment on above: Performed By: #### 1 6191488, 9996530946, 118654090, 9609311, 4901791947, 9193935, 7891567 ####[facility] (DEFAULT)[address] [place] [address] 57426 Urea nitrogen [Mass/Vol] 18 mg/dL Normal - [facility] Comment on above: Performed By: #### 1 6703713, 1873501219, 774692755, 4961770, 0407430091, 4014435, 2817078 ####[facility] (DEFAULT)[address] [place] [address] 76866 Urea nitrogen/Creatinine [Mass ratio] 24.0 mg/mg High 4.6-16.2 [facility] Comment on above: Performed By: #### 1 9117871, 3209738250, 669027000, 3628125, 0510359214, 6768024, 1742625 ####[facility] (DEFAULT)[address] [place] [address] 88954 Ferritinon 03-15-2020 Ferritin [Mass/Vol] 280.1 ng/mL High 12.0-150.0 [facility] Comment on above: Performed By: #### 1 [id number], 1482637012, 523938268, 4337539, 7709364115, 0228184, 1105862 ####[facility] (DEFAULT)[address] [place] [address] 49393 Iron Profileon 03-15-2020 Iron [Mass/Vol] 48.0 ug/dL Normal 28.0-170.0 [facility] Comment on above: Performed By: #### 2 [id number] #### [facility] (DEFAULT) [address] [place] [address] 41754 Iron Sat 13 % Low 20-55 [facility] Comment on above: Performed By: #### 2 [id number] #### [facility] (DEFAULT) [address] [place] [address] 35588 TIBC 378 mcg/dL Normal 250-400 [facility] Comment on above: Performed By: #### 2 5347630 #### [facility] (DEFAULT) [address] [place] [address] 86388 Transferrin [Mass/Vol] 269.8 mg/dL Normal 192.0-382.0 [facility] Comment on above: Performed By: #### 2 [id number] #### [facility] (DEFAULT) [address] [place] [address] 29447 Lipid Panel Standardon 03-15 Cholesterol [Mass/Vol] 159.0 mg/dL Normal 66.0-200.0 [facility] Comment on above: Result Comment: Lorene rable - Less than 200 mg/dL Borderline high risk - 200-239 mg/dL High risk - 240 mg/dL and over. Performed By: #### 1 9138942, 8546244907, 306287325, 5320166, 4154575734, 4685813, 5144759 ####[facility] (DEFAULT)[address] [place] [address] 78987 Cholesterol in HDL [Mass/Vol] 42 mg/dL Normal 40-71 [facility] Comment on above: Result Comment: High risk - <40 mg/dL. Performed By: #### 1 4794856, 7325989854, 270258984, 9670542, 6947308974, 6001102, 3618730 ####[facility] (DEFAULT)[address] [place] [address] 36154 Cholesterol in LDL [Mass/Vol] 80 mg/dL Normal 1-100 [facility] Comment on above: Result Comment: Opti mal - Less than 100 mg/dL Borderline high risk - 130-159 mg/dL High risk - 160-189 mg/dL. Performed By: #### 1 [id number], [id number], 327555280, 5570869, 3437497148, 9786332, 5404412 ####[facility] (DEFAULT)[address] [place] [address] 82751 Cholesterol.total/Judith sterol in HDL [Mass ratio] 3.8 {ratio} Normal 0.0-4.5 [facility] Comment on above: Performed By: #### 1 [id number], [id number], 934420306, 8807846, 9610684078, 1496860, 4713923 ####[facility] (DEFAULT)[address] [place] [address] 06967 Triglyceride [Mass/Vol] 187.0 mg/dL High 0.0-150.0 [facility] Comment on above: Performed By: #### 1 [id number], [id number], 437336784, 5312093, 9681683497, 8306389, 2520527 ####[facility] (DEFAULT)[address] [place] [address] VLDL. 37 mg/dL Normal 5-40 [facility] Comment on above: Performed By: #### 1 [id number], [id number], 163556928, 2654310, 0680388976, 9663211, 9441976 ####[facility] (DEFAULT)[address] [place] [address] 23393 TSH w/ Reflex to FT4on 03-15 TSH Qn 3.27 m[IU]/L Normal 0.45-5.33 [facility] Comment on above: Result Comment: Gene ral Population (males and non- females, aged 21-88) 0.45 - 5.33 Females, 1st Trimester 0.05 - 3.70 Females, 2nd Trimester 0.31 - 4.35 Females, 3rd Trimester 0.41 - 5.18 Performed By: #### 1 [id number], [id number], 018938415, 0646851, 4920753217, 2699628, 1436508 ####[facility] (DEFAULT)[address] [place] [address] 01910 Uric Acidon 03-15-2020 Urate [Mass/Vol] 5.7 mg/dL Normal 2.6-8.0 [facility] Comment on above: Performed By: #### 1 [id number], [id number], 983161849, 8946881, 1860294537, 2818157, 2458562 ####[facility] (DEFAULT)[address] [place] [address] Coding Summaryon 02-26-2020 Coding Summary CODING DATE: 02/26/2020 [facility] STATUS: Home PAYOR: Medicare MC ADMIT [...] [address]' Date Saved: 02/26/2020 01:37 pm [facility] Coding Summary CODING DATE: 02/26/2020 [facility] STATUS: Home PAYOR: Medicare MC APC [...] [address]' Date Saved: 02/26/2020 01:35 pm [facility] .Auto Diff 1on 02-22-2020 [facility] [place] % 7 % Normal 08-01 [facility] Comment on above: Performed By: #### 1 [id number], [id number], 1655329, 5904276643, 91217824, 8883067, ####[facility] (DEFAULT)[address] [place] [address] 69131 Baso Abs# 0.0 x10 Normal 0.0-0.2 [facility] Comment on above: Performed By: #### 1 [id number], 5310169152, 9665813, 2202424794, 06577102, 5814457, ####[facility] (DEFAULT)[address] [place] [address] 77237 Basophils/100 WBC (Bld) 0.4 % Normal 0.2-2.0 [facility] Comment on above: Performed By: #### 1 [id number], 4554470802, 7288951, 5745455757, 15152973, 1395850, ####[facility] (DEFAULT)[address] [place] [address] 61815 Eos Abs# 0.1 x10 Normal 0.0-0.4 [facility] Comment on above: Performed By: #### 1 [id number], 9563252019, 5904241, 3939422416, 05146887, 3500313, ####[facility] (DEFAULT)[address] [place] [address] 14240 Eosinophils/100 WBC (Bld) 2.3 % Normal 0.9-4.0 [facility] Comment on above: Performed By: #### 1 [id number], 8712323672, 6420369, 6156974193, 33216149, 1672849, ####[facility] (DEFAULT)[address] [place] [address] 95869 Lymph Abs# 1.1 x10 Low 1.3-2.9 [facility] Comment on above: Performed By: #### 1 [id number], 2050595097, 0797904, 6272128679, 28143462, 3467759, 7860021802 ####[facility] (DEFAULT)[address] [place] [address] 41244 Lymphocytes/100 WBC (Bld) 21 % Normal 14-48 [facility] Comment on above: Performed By: #### 1 [id number], 4178541049, 1962035, 8193589193, 11300644, 9032768, 7922153398 ####[facility] (DEFAULT)[address] [place] [address] Dixie Abs# 0.4 x10 Normal 0.0-0.8 [facility] Comment on above: Performed By: #### 1 [id number], 4252860345, 0692895, 9430485373, 76922776, 4742361, 1081059543 ####[facility] (DEFAULT)[address] [place] [address] Neut Abs# 3.6 x10 Normal 1.5-9.2 [facility] Comment on above: Performed By: #### 1 [id number], 3258976232, 5500896, 1629556631, 36302695, 2296817, 2085820120 ####[facility] (DEFAULT)[address] [place] [address] Neutrophils/100 WBC (Bld) 69 % Normal 44-88 [facility] Comment on above: Performed By: #### 1 [id number], 0552799357, 2734664, 2078997896, 91420386, 9005545, 5496457505 ####[facility] (DEFAULT)[address] [place] [address] 77698 [facility] Standardon 02-22-2020 eGFR Non AA >60 Invalid Interpretation Code [facility] Comment on above: Performed By: #### 1 [id number], 0857361760, 5202611, 4059256794, 83692328, 1231050, 9890790734 ####[facility] (DEFAULT)[address] [place] [address] 46509 eGFR AA >60 Invalid Interpretation Code [facility] Comment on above: Result Comment: Machine Carton Marker kenny Kidney disease could be indicated at eGFRs of less than 60 ml/min/1.73m2. Kidney Failure is indicated at less than 15 ml/min/1.73m2 Performed By: #### 1 [id number], 6707403962, 5741806, 8387050467, 56743329, 9904773, 6978573655 ####[facility] (DEFAULT)[address] [place] [address] 99573 Anion gap [Moles/Vol] 15.0 mmol/L Normal 5.0-19.0 [facility] Comment on above: Performed By: #### 1 [id number], 4040485126, 5016601, 8917342806, 62700935, 7581734, ####[facility] (DEFAULT)[address] [place] [address] 22853 Calcium [Mass/Vol] 9.2 mg/dL Normal 8.9-10.3 [facility] Comment on above: Performed By: #### 1 [id number], 1004717753, 7828912, 7315626566, 07813805, 0718320, 3608788838 ####[facility] (DEFAULT)[address] [place] [address] 43876 Chloride [Moles/Vol] 96 mmol/L Low 101-111 [facility] Comment on above: Performed By: #### 1 [id number], 8796555141, 2439937, 9569910575, 30093496, 3648429, ####[facility] (DEFAULT)[address] [place] [address] 49314 CO2 [Moles/Vol] 23 mmol/L Normal 21-32 [facility] Comment on above: Performed By: #### 1 [id number], 7179925393, 2807679, 4070800383, 04176763, 9035944, ####[facility] (DEFAULT)[address] [place] [address] 70817 Creatinine [Mass/Vol] 0.80 mg/dL Normal 0.60-1.30 [facility] Comment on above: Performed By: #### 1 [id number], 7492478201, 2626230, 9645656602, 85999199, 3376556, 3834647163 ####[facility] (DEFAULT)[address] [place] [address] 75002 Glucose [Mass/Vol] 111.0 mg/dL Normal 74.0-118.0 [facility] Comment on above: Performed By: #### 1 [id number], 6873440076, 9622896, 7618167602, 92301698, 0590973, 5011720165 ####[facility] (DEFAULT)[address] [place] [address] 07618 Osmolality 262 mOsm/L Invalid Interpretation Code [facility] Comment on above: Performed By: #### 1 [id number], 0117077561, 3096798, 6397510244, 15662649, 8643044, 2747723697 ####[facility] (DEFAULT)[address] [place] [address] 73842 Potassium [Moles/Vol] 4.7 mmol/L Normal 3.6-5.1 [facility] Comment on above: Performed By: #### 1 [id number], 6109616545, 2356994, 4985441066, 34518297, 0483075, 3873730840 ####[facility] (DEFAULT)[address] [place] [address] 36575 Sodium [Moles/Vol] 129.0 mmol/L Low 136.0-144.0 [facility] Comment on above: Performed By: #### 1 388454824, 6070131282, 3489809, 4081923224, 03026470, 3810430, 2712731885 ####[facility] (DEFAULT)[address] [place] [address] 65926 Urea nitrogen [Mass/Vol] 20 mg/dL Normal 8-26 [facility] Comment on above: Performed By: #### 1 228752732, 6428262077, 0082045, 2911723408, 72517121, 8363344, 6648236790 ####[facility] (DEFAULT)[address] [place] [address] 01238 Urea nitrogen/Creatinine [Mass ratio] 25.0 mg/mg High 4.6-16.2 [facility] Comment on above: Performed By: #### 1 131803962, 5578655265, 9943689, 0759348678, 73002007, 9933145, 3848199720 ####[facility] (DEFAULT)[address] [place] [address] CBC w/ Auto Diffon 0 Erythrocyte distribution width (RBC) [Ratio] 12.8 % Normal 11.5-15.0 [facility] Comment on above: Performed By: #### 1 [id number], 3026539587, 9362897, 3652114498, 01691969, 6768948, 9080543116 ####[facility] (DEFAULT)[address] [place] [address] Hematocrit (Bld) [Volume fraction] 31.3 % Low 33.7-40.4 [facility] Comment on above: Performed By: #### 1 005682156, 2646531363, 2236798, 7234878087, 58486039, 3558630, 8245651109 ####[facility] (DEFAULT)[address] [place] [address] Hemoglobin (Bld) [Mass/Vol] 10.3 g/dL Low 11.3-15.9 [facility] Comment on above: Performed By: #### 1 085059409, 4600973111, 5676452, 1310033434, 62872364, 5371185, 2803657616 ####[facility] (DEFAULT)[address] [place] [address] Instr WBC 5.2 x10 Invalid Interpretation Code [facility] Comment on above: Performed By: #### 1 [id number], 6112615970, 1043204, 5065397579, 99361125, 9669145, 4407638862 ####[facility] (DEFAULT)[address] [place] [address] 42384 Man Diff? Auto Normal [facility] Comment on above: Performed By: #### 1 849987043, 3398951314, 0769768, 0696162772, 91043591, 1664338, 4577371899 ####[facility] (DEFAULT)[address] [place], [place] [address] MCH (RBC) [Entitic mass] 32 pg Normal 24-34 [facility] Comment on above: Performed By: #### 1 [id number], 2578690784, 6518967, 8965258173, 52812156, 2960554, 3766648085 ####[facility] (DEFAULT)[address] [place] [address] 50737 MCHC (RBC) [Mass/Vol] 33 g/dL Normal 26-37 [facility] Comment on above: Performed By: #### 1 056944731, 7732030418, 1602017, 6921439074, 09430080, 1011144, 6636794568 ####[facility] (DEFAULT)[address] [place] [address] 09690 MCV (RBC) [Entitic vol] 98 fL Normal 81-100 [facility] Comment on above: Performed By: #### 1 574259287, 4875042230, 0005875, 9125949695, 44119437, 1329559, 1113017234 ####[facility] (DEFAULT)[address] [place] [address] 89244 Platelet 280 x10 Normal 138-427 [facility] Comment on above: Performed By: #### 1 [id number], 6377219037, 5268530, 3970804729, 74243176, 0025351, 8980614260 ####[facility] (DEFAULT)[address] [place] [address] 93850 Platelet mean volume (Bld) [Entitic vol] 8.8 fL Normal 6.3-10.2 [facility] Comment on above: Performed By: #### 1 [id number], 2598462509, 3634178, 3930639539, 19415743, 1374497, 5352105395 ####[facility] (DEFAULT)[address] [place] [address] 05207 RBC 3.19 x10 Low 3.70-5.30 [facility] Comment on above: Performed By: #### 1 [id number], 6868660466, 6517178, 8537159249, 87313313, 1534111, 5922519852 ####[facility] (DEFAULT)[address] [place] [address] 30366 WBC 5.2 x10 Normal 3.5-10.5 [facility] Comment on above: Performed By: #### 1 [id number], 2290621628, 7009037, 5923954217, 47687821, 8895237, 0215859956 ####[facility] (DEFAULT)[address] [place] [address] 35314 ED Clinical Summaryon 2019 ED Clinical Summary [facility] - Emergency Department [address] [place] [address] 91189 ED Clinical Summary PERSON INFORMATION Name: ALYCE DAVID Age: 64 Years Sex: FEMALE : 1955 MRN: Acct#: Visit Reason: Foot pain; RIGHT FOOT SWELLING Arrival: 02/22/2020 11:49:30 Discharge: 02/22/2020 13:50:00 LOS: 000 02:01 Check In: 02/22/2020 11:49:30 Checkout:02/22/2020 13:50:00 Address: [address] [place] [address]471 PCP: Aysha Clements MD PROVIDER INFORMATION Provider Role Assigned Unassigned [employer] ED PA 02/22/2020 11:50:35 Noemy Ruiz DIE LAY OUT WORKER Nurse 02/22/2020 11:54:20 02/22/2020 13:29:23 Noemy Ruiz DIE LAY OUT WORKER Nurse 02/22/2020 13:29:28 VITALS INFORMATION Vital Sign [...] the me (more content not included)... Normal [facility] ED Note - Physicianon 2019 ED [...] XR Fo (more content not included)... Normal [facility] ED Note-Nursingon 02-22-2020 ED Note-Nursing Patient [...] her to come to the ED. Normal [facility] ED Patient Summaryon 020 ED Patient Summary [facility] - Emergency Department [address] [place] [address] 05641 PATIENT DISCHARGE INSTRUCTIONS Patient Information Name: ALYCE DAVID Age: 64 Years Date of : 1955 Reason For Visit: Foot pain; RIGHT FOOT SWELLING Arrival Time: 02/22/2020 11:49:30 Primary Care Physician: Aysha Clements MD Attending Physician: Emir Salazar MD Comment: Visit Diagnosis: Diagnoses This Visit Anemia (D64.9) Foot pain ([id number]) Gout of big toe (M10.9) Hyponatremia (E87.1) Sprain of knee (S83.90XA) Prescription Information: If you have been given a prescription for narcotics, seek immediate medical attention if you have any difficulty breathing or any sudden status changes such as confusion and sleepiness. If you or anyone you know is experiencing suicidal thoughts, mental health, alcohol and/or drug addiction problems; contact the [facility] 10/02 Crisis Hotline -Text 4HKDL ur 845456. If you received any narcotics, sedation, or [...] legal documents With: Address: When: Aysha Clements [address] [place], [place] [address] Business (1) Within 3 to 5 days [...] concerns. Prescription has been electronically sent to [facility] pharmacy. Medication Information: The exam and treatment you received today in the [facility] Emergency Department were for an urgent problem and are not intended as complete care. It is important for you to follow up with a doctor, nurse practitioner, or physician?s stylist assistant for ongoing care. If your symptoms [...] so we can reach you if necessary. [facility] Emergency Department has provided you with a complete list of medications post discharge. Please inform your straightener and aligner/provider of your visit and for further instruction on these medications. Any specific questions regarding your chronic medications and dosages should be discussed with your primary care physician(s) and/or pharmacist. New Medications [facility] [facility], [address] [place], [place] [id number], [phone] acetaminophen-hydroco done ([place] 5 mg-325 mg oral tablet) 1 tab(s) [...] Type Com (more content not included)... Normal [facility] Extra Greenon 02-22-2020 Tube Collected Yes Invalid Interpretation Code [facility] Comment on above: Performed By: #### 1 [id number], [id number], 8659419, 5135714782, 43841043, 7132516, [id number] ####[facility] (DEFAULT)[address] [place] [address] Uric Acidon 02-22-2020 Urate [Mass/Vol] 9.4 mg/dL High 2.6-8.0 [facility] Comment on above: Performed By: #### 1 [id number], 8591441906, 9098026, 1588290791, 13166495, 6949256, 9037074219 ####[facility] (DEFAULT)[address] [place] [address] 70375 XR Foot Complete Righton XR Foot Complete [...] MD 02/22/20 12:55 p Technologist: Lillian BRAY [facility] XR Knee Complete Lefton XR Knee Complete [...] MD 02/22/20 12:55 p Technologist: Lillian BRAY [facility] Vital Signs Date Time Vital Sign Value Performing Clinician Facility 08-20-2023 13:55-0500 Body height 162.56 cm Liliana Willett Other [employer] Other 08-20-2023 13:55-0500 Body mass index (BMI) [Ratio] 30.52 kg/m2 Liliana Willett Other [employer] Other 08-20-2023 13:55-0500 Body temperature 99.1 [degF] Liliana Willett Other [employer] Other 08-20-2023 13:55-0500 Body weight 80.65 kg Liliana Willett Other [employer] Other 08-20-2023 13:55-0500 Diastolic blood pressure 86 mm[Hg] Liliana Willett Other [employer] Other 08-20-2023 13:55-0500 Respiratory rate 18 /min Liliana Willett Other [employer] Other 08-20-2023 13:55-0500 SaO2% (BldA) [Mass fraction] 97 % Liliana Willett Other [employer] Other 01-31-2024 13:55-0500 Systolic blood pressure 156 mm[Hg] Liliana Willett Other [facility] [employer] Other 06-01-2022 13:17-0500 Diastolic blood pressure 76 mm[Hg] MD Aysha Clements Work Phone: [facility] 06-01-2022 13:17-0500 Heart rate 95 /min MD Aysha Clements Work Phone: [facility] 06-01-2022 13:17-0500 Respiratory rate 18 /min MD Aysha Clements Work Phone: [facility] 06-01-2022 13:17-0500 SaO2% (BldA) [Mass fraction] 94 % MD Aysha Clements Work Phone: [facility] 06-01-2022 13:17-0500 Systolic blood pressure 128 mm[Hg] MD Aysha Clements Work Phone: [facility] 06-01-2022 06:00-0500 Body temperature 97.2 [degF] MD Aysha Clements Work Phone: [facility] 06-01-2022 05:59-0500 Body height 160.02 cm MD Aysha Clements Work Phone: [facility] 06-01-2022 05:59-0500 Body weight 88.5 kg MD Aysha Clements Work Phone: [facility] 10-30-2021 10:47-0400 Body height 162 cm Carl Patel MD Work Phone: [facility] 10-30-2021 10:47-0400 Body temperature 98.6 [degF] Carl Patel MD Work Phone: [facility] 10-30-2021 10:47-0400 Diastolic blood pressure 67 mm[Hg] Carl Patel MD Work Phone: [facility] 10-30-2021 10:47-0400 Heart rate 90 /min Carl Patel MD Work Phone: [facility] 10-30-2021 10:47-0400 Respiratory rate 20 /min Carl Patel MD Work Phone: [facility] 10-30-2021 10:47-0400 SaO2% (BldA) [Mass fraction] 91 % Carl Patel MD Work Phone: [facility] 10-30-2021 10:47-0400 Systolic blood pressure 132 mm[Hg] Carl Patel MD Work Phone: [facility] 10-16-2021 10:58-0400 Body height 162 cm Carl Patel MD Work Phone: [facility] 10-16-2021 10:58-0400 Body temperature 97.7 [degF] Carl Patel MD Work Phone: [facility] 10-16-2021 10:58-0400 Body weight 77.11 kg Carl Patel MD Work Phone: [facility] 10-16-2021 10:58-0400 Diastolic blood pressure 67 mm[Hg] Carl Patel MD Work Phone: [facility] 10-16-2021 10:58-0400 Heart rate 116 /min Carl Patel MD Work Phone: [facility] 10-16-2021 10:58-0400 Respiratory rate 18 /min Carl Patel MD Work Phone: [facility] 10-16-2021 10:58-0400 SaO2% (BldA) [Mass fraction] 91 % Carl Patel MD Work Phone: [facility] 10-16-2021 10:58-0400 Systolic blood pressure 112 mm[Hg] Carl Patel MD Work Phone: [facility] Encounters Encounter Date Encounter Type Care Provider Facility Start: 08-20-2023 End: 08-20-2023 ambulatory Liliana Willett Other [employer] Other Start: 08-20-2023 Office outpatient vi sit 15 minutes Liliana Willett [facility] Start: 06-01-2022 End: 06-04-2022 Evaluation and management of inpatient Aysha Clements Facility:[facility] Start: 06-01-2022 Evaluation and management of inpatient MD Aysha Clements Work Phone: [facility] Start: 11-15-2021 End: 11-15-2021 Patient encounter procedure Dottie Cade [facility] Start: 10-30-2021 End: 10-30-2021 ambulatory [...] Hematology/Oncology Start: 10-09-2021 End: 10-09-2021 ambulatory Matthew Lindkrysoom Facility:[facility] Start: 09-25-2021 End: 09-30-2021 Evaluation and management of inpatient Matthew Lindkrysoom Facility:[facility] Procedures Date Procedure Procedure Detail Performing Clinician section Dottie Cade Colonoscopy Dottie Cade SARS Antigen (LFIA) MD Aysha Clements Work Phone: Plan of Treatment Date Care Activity Detail Author Start: 10-30-2024 DIABETES SCREEN DIABETES SCREEN [facility] Start: 10-16-2024 DIABETES SCREEN DIABETES SCREEN [facility] Start: 06-01-2022 Hospital admission [facility] Start: 06-01-2022 Vitamin D, 25-hydrox y measurement [facility] Start: 06-01-2022 [facility] Start: 03-21-2022 Influenza vaccination INFLUENZ A (Season Ended) [facility] Start: 10-30-2021 End: 12-30-2021 MYELOPROLIFERATIVE NEOPLASM PANEL BLOOD [facility] Work Phone: Comment on above: Expected: 10/30/2021 , Expires: 12/30/2021 Start: 10-30-2021 End: 12-30-2021 Nuclear Ab [Presence] in Serum by Immunoassay [facility] Work Phone: Comment on above: Expected: 10/30/2021 , Expires: 12/30/2021 Start: 10-16-2021 End: 12-16-2021 aPTT in Platelet poor plasma by Coagulation assay [facility] Work Phone: Comment on above: Expected: 10/16/2021 , Expires: 12/16/2021 Start: 10-16-2021 End: 12-16-2021 C reactive protein [Mass/volume] in Serum or Plasma [facility] Work Phone: Comment on above: Expected: 10/16/2021 , Expires: 12/16/2021 Start: 10-16-2021 End: 12-16-2021 Erythrocyte sedimentation rate [facility] Work Phone: Comment on above: Expected: 10/16/2021 , Expires: 12/16/2021 Start: 10-16-2021 End: 12-16-2021 FERRITIN BLD [facility] Work Phone: Comment on above: Expected: 10/16/2021 , Expires: 12/16/2021 Start: 10-16-2021 End: 12-16-2021 Haptoglobin [Mass/volume] in Serum or Plasma [facility] Work Phone: Comment on above: Expected: 10/16/2021 , Expires: 12/16/2021 Start: 10-16-2021 End: 12-16-2021 IRON + TIBC [facility] Work Phone: Comment on above: Expected: 10/16/2021 , Expires: 12/16/2021 Start: 10-16-2021 End: 12-16-2021 MONOCLONAL PROTEIN, SERUM (BLOOD) [facility] Work Phone: Comment on above: Expected: 10/16/2021 , Expires: 12/16/2021 Start: 10-16-2021 End: 12-16-2021 PT panel - Platelet poor plasma by Coagulation assay [facility] Work Phone: Comment on above: Expected: 10/16/2021 , Expires: 12/16/2021 Start: 10-16-2021 End: 12-16-2021 VITAMIN B12 BLOOD [facility] Work Phone: Comment on above: Expected: 10/16/2021 , Expires: 12/16/2021 Start: 07-21-2021 ADVANCE DIRECTIVE DISCUSSION ADVANCE DIRECTIVE DISCUSSION [facility] Start: 03-21-2021 Influenza vaccination INFLUENZA (#1) [facility] Start: 03-15-2021 COVID-19 VACCINE (3 - Booster for Moderna series) COVID-19 VACCINE (3 - Booster for Moderna series) [facility] Start: 2018 BONE DENSITY BONE DENSITY [facility] Start: 2018 PNEUMOVAX AGE 65 AND OVER WITH 5YR LOOKBACK (#1) PNEUMOVAX AGE 65 AND OVER WITH 5YR LOOKBACK (#1) [facility] Start: 09-23-2003 SHINGRIX VACCINE (1 of 2) ILNCOLN GRIX VACCINE (1 of 2) [facility] Start: 1998 COLOGUARD (FIT-DNA) COLOGUARD (FIT-D NA) [facility] Start: 1998 Colonoscopy COLONOSCOPY [facility] Start: 1998 COLORECTAL CANCER SCREENING CO LORECTAL CANCER SCREENING [facility] Start: [address] COLONOGRAPHY [facility] Start: 1998 DIABETES SCREEN DIABETES SCREEN [facility] Start: 1998 FECAL OCCULT BLOOD FECAL OCCULT BLOO D [facility] Start: 1998 LIPID SCREEN LIPID SCREEN [facility] Start: 1998 SIGMOIDOSCOPY SIGMOIDOSCOPY [facility] Start: 1993 Mammography MAMMOGRAM [facility] Start: 1972 Urine microalbumin profile DTA P,TDAP,TD (1 - Tdap) [facility] Start: [birth year]23-1971 HEPATITIS C SCREENING HEPATITIS C SC REENING [facility] Start: 1967 Adult depression scr eening assessment DEPRESSION SCREENING [facility] Start: 1960 COVID-19 VACCINE (1) COVID-19 VACCIN E (1) [facility] Calculated LDL judith sterol level [facility] Work Phone: End: 10-30-2022 CBC W Auto Differential panel - Blood CBC + DIFF Lab Routine Normocytic anemia Once per month for 10 Occurrences starting 10/30/2021 until 10/30/2022 [facility] Work Phone: Comment on above: Once per month for 1 0 Occurrences starting 10/30/2021 until 10/30/2022 Cholesterol [Mass/vo lume] in Serum or Plasma [facility] Work Phone: Cholesterol in HDL [Mass/volume] in Serum or Plasma [facility] Work Phone: Cholesterol.total/Ch olester ol in HDL [Mass Ratio] in Serum or Plasma [facility] Work Phone: End: 10-30-2022 Comprehensive metabolic 2000 panel - Serum or Plasma COMP METABOLIC PANEL Lab Routine Normocytic anemia Once per month for 10 Occurrences starting 10/30/2021 until 10/30/2022, 1 completed [facility] Work Phone: Comment on above: Once per month for 1 0 Occurrences starting 10/30/2021 until 10/30/2022, 1 completed Thyrotropin [Units/v olume] in Serum or Plasma [facility] Work Phone: Triglyceride [Mass/v olume] in Serum or Plasma [facility] Work Phone: Vitamin D, 25-hydrox y measurement [facility] Work Phone: VLDL cholesterol measurement [facility] Work Phone: [facility] Immunizations Immunization Date Immunization Notes Care Provider [facility] 05-02-2020 Influenza, injectable, Madin Cleo Canine Kidney, preservative free, quadrivalent Carl Patel MD Work Phone: [facility] 05-29-2018 Influenza, injectable, Madin [place] Canine Kidney, preservative free, quadrivalent Carl Patel MD Work Phone: [facility] 06-05-2016 influenza, seasonal, injectable Carl Patel MD Work Phone: [facility] 06-29-2015 influenza, seasonal, injectable, preservative free Carl Patel MD Work Phone: [facility] NEGATED: Highlighted row has not occurred!11-15-2021 SARS-CoV-2 (COVID-19) Ad26 vaccine, recombinant Dottie Cade [facility] Payers Date Payer Category Payer Unknown [employer]M BLUE [facility] AND BLUE [facility] [employer]M [employer] O [id number] 2021-Present [phone] [address] [place] [address] O [id number] 2021 Medicare [id number] 2021 Medicare [id number] 2021 Self-pay [id number] Unknown [id number] Unknown [id number] Unknown [id number] Worker's Compensation [id number] Social History Date Type Detail Facility Start: 10-15-2021 End: 06-01-2022 Tobacco smoking status NHIS Ex-smoker [facility] History of tobacco use [facility] Start: 10-15-2021 Tobacco use and exposure Smokeless tobacco non-user [facility] Start: 10-15-2021 End: 10-30-2021 Alcohol intake Current drinker of alcohol (finding) [facility] Start: 1955 Sex Assigned At Not on file C [facility] Start: 10-06-2021 End: 10-30-2021 Exposure to SARS-CoV-2 (event) Not sure [facility] Sex Assigned At Female [facility] Start: 1955 Sex Assigned At Female F [facility] Clinical Notes 02-22-2020 to 08-20-2023 Note Date [...] least once a day. Call Dr. Vargas, mining analyst in [place] for an appointment to be seen as soon as possible. Jul, Local infection of the skin and subcutaneous tissue, unspecified (ICD-10 - L08.9) [employer] Other 04-28-2022 Hospital Discharge instructions Patient Education [...] complications. Follow these instructions at home: Take oewv-qjv-ftzgjjr and prescription medicines only as told by [...] 07/06/2007 Document Revised: 06/19/2018 Document Reviewed: 08/08/2017 [employer] Patient Education 2020 [employer] Follow Up Care 10/18/2021 08:56:34 With:Rayo CIFUENTES, LOYDA Aparicio, URO Address: When: only if needed [facility] Fredo 04-12-2022 NoteHNO ID: [id number] Author: Carl Patel MD Service: ? Author [...] hemoglobin ranging from 9?10 g/dL noted during [facility] hospitalization (presented with proximal muscle weakness, urinary [...] is itching. She has not seen a junior software engineer. She is here to follow-up with a [...] are from cancer. She lives alone in [place], [place] but now has her son for [...] neurologist to complete the work-up. Referral to junior software engineer for inflammatory skin rash. XR chest was notable for mild diffuse interstitial infiltrates. Cough is improving. If it worsens, will consider CT chest in the future. Follow-up in 4 weeks with repeat labs. Calr Patel MD I spent a total of 25 minutes on the date of the service which included preparing to see the patient, mhix-ic-yrlz patient care, completing clinical documentation, obtaining and/or reviewing separately obtained history, performing a medically appropriate examination, counseling and educating the patient/family/caregiver, ordering medications, tests, or procedures, independently interpreting results (not separately reported) and communicating results to the patient/family/caregiver.[facility]04-12-2022 Miscellaneous Notes* Addendum Note - Carl Patel MD - 10/30/2021 12:21 PM EDT Addended by: CARL PATEL on: 10/30/2021 12:21 PM Modules accepted: Orders documented [facility] Nurse Note* Maricarmen Kebede MA - 10/30/2021 11:02 AM EDT Patient was recently in the [facility] due to Anemia. Maricarmen Gomez MA documented in [facility] History of Present illness Narrative* Carl Patel [...] ranging from 9 10 g/dL noted during [facility] hospitalization (presented with proximal muscle weakness, urinary [...] is itching. She has not seen a junior software engineer. She is here to follow-up with a [...] are from cancer. She lives alone in [place], [place] but now has her son for [...] neurologist to complete the work-up. Referral to junior software engineer for inflammatory skin rash. XR chest was notable for mild diffuse interstitial infiltrates. Cough is improving. If it worsens, will consider CT chest in the future. Follow-up in 4 weeks with repeat labs. Carl Patel MD I spent a total of 25 minutes on the date of the service which included preparing to see the patient, hsmj-ms-ejsh patient care, completing clinical documentation, obtaining and/or reviewing separately obtained history, performing a medically appropriate examination, counseling and educating the pat ient/family/caregiver, ordering medications, tests, or procedures, independently interpreting results (not separately reported) and communicating results to the patient/family/caregiver. documented in [facility]03-29-2022 NoteHNO ID: [id number] Author: RT Brian(R) Service: ? Author Type: [...] BY: RT Brian(R) October 16, 2021 12:02 [facility]03-29-2022 NoteHNO ID: [id number] Author: Carl Patel MD Service: ? Author [...] evaluation of anemia. Briefly, she presented to [facility] ER with proximal muscle weakness and inability [...] are from cancer. She lives alone in [place], [place] but now has her son for [...] which included preparing to see the patient, [id number] patient care, completing clinical documentation, obtaining and/or reviewing separately obtained history, performing a medically anisha (more content not included)...[facility]03-29-2022 History of Present illness Narrative* Carl Patel [...] evaluation of anemia. Briefly, she presented to [facility] ER with proximal muscle weakness and inability [...] are from cancer. She lives alone in [place], [place] but now has her son for [...] which included preparing to see the patient, akqu-[id number] patient care, completing clinical documentation, obtaining and/or reviewing separately obtained history, performing a medically appropriate examination, counseling and educating the pat ient/family/caregiver, ordering medications, tests, or procedures, independently interpreting results (not separately reported) and communicating results to the patient/family/caregiver. documented in [facility]Ohio [facility]03-20-2022 Note [id number]:127[facility] 10-01-2021 [id number]:127[facility]08-04-2020 NoteEducation Materials Hematology Hyponatremia Hyponatremia is when [...] diarrhea. ? Have metabolic conditions, such as Tanner disease or SIADH. ? Take certain medicines [...] 06/27/2003 Document Revised: 12/12/2016 Document Reviewed: 07/27/2015 [employer] Interactive Patient Education ? 2019 [employer]. Orthopedics Knee Sprain, Adult A knee sprain [...] the splint or b (more content not included)...[facility] Evaluation + Plan note No data available for this section [facility] Evaluation note* Diagnosis Normocytic anemia- Primary Anemia, unspecified Cough Prolonged pt (prothrombin time) Abnormal coagulation profile [facility] Diagnosis Normocytic anemia- Primary Anemia, unspecified Rash and nonspecific skin eruption Rash and other nonspecific skin eruption Leukocytosis, unspecified type [facility]* Diagnosis Onset Date Resolution Status Depression acute [facility] Work Phone: History general Narrative - Reported* Type Description Date Medical History hypertension Medical History hypercholesterolemia Medical History anemia [facility] [employer] Other Summary Purpose Family History Relationship Condition Age at Onset Recorded Date/T robinson Not Specified No pertinent family history Unknown Advance Directives Advance Directive Response Recorded Date/ Time Advance Directives No March 13, 2020 2:41pm Reason for Referral Specialty Diagnoses / Procedures Referred By Contac t Referred To Contact Dermatology Diagnoses Normocytic anemia Rash and nonspecific skin eruption Procedures CONSULT TO DERMATOLOGY OFFICE/OUTPATIENT [facility] 60-74 MINUTES Carl Patel MD [address] [place] [address] [place] [address] Referral ID Status Reason Start Date Expiration Date Visits Requested Visits Authorized [id number] Pending Review PCP Requested Referral 10/30/2021 10/30/2022 1 1 Chief Complaint and Reason for Visit Chief Complaint [facility] Reason for Visit Depression Additional Source Comments INFORMATION SOURCE (unrecogn ized section and content) DATE CREATED AUTHOR 11/07/2020 [facility] DATE CREATED AUTHOR AUTHOR'S ORGANIZ ATION 11/11/2021 [facility] DATE CREATED AUTHOR AUTHOR'S ORGANIZ ATION 11/18/2021 [facility] DATE CREATED AUTHOR AUTHOR'S ORGANIZ ATION 08/29/2022 [facility] Source Comments (unrecognize d section and content) In the event this informatio n is protected by the Federal Confidentiality of Alcohol and Drug Abuse Patient Records regulations: The Federal rules restrict any use of the information to criminally investigate or prosecute any alcohol or drug abuse patient.[facility] the event this information is protected by the Federal Confidentiality of Alcohol and Drug Abuse Patient Records regulations: The Federal rules restrict any use of the information to criminally investigate or prosecute any alcohol or drug abuse patient.[facility] Hospital[facility] the event this information is protected by the Federal Confidentiality of Alcohol and Drug Abuse Patient Records regulations: The Federal rules restrict any use of the information to criminally investigate or prosecute any alcohol or drug abuse patient.[facility] Reason for Visit (unrecogniz ed section and [...] BE BASED ON THE PRIMARY CLINICAL RECORDS. [facility]. provides no warranty or guarantee of the accuracy or completeness of information in this document.
[2023-12-07 14:28] LABS: Basophils Percent Auto 0.6 % (0.2-2.0); Eosinophils Absolute Auto 0.1 10^3/uL (0.0-0.7); Eosinophils Percent Auto 1.7 % (0.9-7.0); Hematocrit 27.1 % (36.0-48.0); Hemoglobin 8.1 g/dL (12.0-16.0); Immature Granulocytes Abs Auto 0.06 10^3/uL (0.00-0.03); Immature Granulocytes Pct Auto 0.9 % (0.0-0.5); Lymphocytes Absolute Auto 1.3 10^3/uL (1.2-3.8); Mean Corpuscular HGB Conc 29.9 g/dL (29.9-35.2); Mean Corpuscular Hemoglobin 25.9 pg (26.7-34.0); Mean Corpuscular Volume 86.6 fL (81.0-99.0); Mean Platelet Volume 10.3 fL (9.5-13.5); Monocytes Absolute Auto 0.6 10^3/uL (0.3-0.8); Monocytes Percent Auto 8.6 % (1.7-12.0); Neutrophils Absolute Auto 4.3 10^3/uL (1.4-6.5); Neutrophils Percent Auto 67.2 % (43.0-75.0); Platelet Count 185 10^3/uL (150-450); Red Blood Count 3.13 10^6/uL (4.20-5.40); Red Cell Distribution Width 16.5 % (11.0-15.0); White Blood Count 6.4 10^3/uL (4.0-11.0)
[2023-12-07 14:31] LABS: Bilirubin Urine NEGATIVE (NEGATIVE); Blood Urine SMALL (NEGATIVE); Clarity Urine CLEAR (CLEAR); Color Urine YELLOW (YELLOW); Glucose Urine UA NEGATIVE (NEGATIVE); Ketones Urine NEGATIVE (NEGATIVE); Leukocyte Esterase Urine LARGE (NEGATIVE); Nitrite Urine NEGATIVE (NEGATIVE); Protein Urine NEGATIVE (NEG/TRACE); Specific Gravity Urine 1.015 (1.005-1.025); pH Urine 6.5 (5.0-9.0)
[2023-12-07 14:35] LABS: Urine Microscopic Indicated YES
[2023-12-07 14:38] LABS: Bacteria Urine LARGE #/HPF (NONE SEEN); Mucus Urine NONE SEEN (NONE SEEN); Squamous Epithelial Cell Urine FEW #/LPF (NONE/RARE); WBC Urine 20-50 #/HPF (NONE SEEN)
[2023-12-07 14:39] LABS: Urine Culture Indicated YES
[2023-12-07 14:40] LABS: Amphetamine Screen Urine NEGATIVE (NEGATIVE); Barbiturates Screen Urine NEGATIVE (NEGATIVE); Benzodiazepines Screen Urine NEGATIVE (NEGATIVE); Buprenorphine Screen Urine NEGATIVE (NEGATIVE); Cannabinoid Screen Urine NEGATIVE (NEGATIVE); Cocaine Screen Urine NEGATIVE (NEGATIVE); Methadone Screen Urine NEGATIVE (NEGATIVE); Methamphetamines Screen Urine NEGATIVE (NEGATIVE); Opiate Screen Urine NEGATIVE (NEGATIVE); Oxycodone Screen Urine NEGATIVE (NEGATIVE); Phencyclidine Screen Urine NEGATIVE (NEGATIVE); Tricyclic Antidepressant Urine NEGATIVE (NEGATIVE)
[2023-12-07 14:46] LABS: Alanine Aminotransferase 36 U/L (14-59); Albumin Globulin Ratio 0.7; Albumin Level 3.4 g/dL (3.4-5.0); Alkaline Phosphatase 106 U/L (46-116); Aspartate Amino Transferase 59 U/L (15-37); BUN Creatinine Ratio 29.5; Bilirubin Total 1.4 mg/dL (0.2-1.0); Calcium 9.7 mg/dL (8.5-10.1); Chloride 101 mmol/L (98-107); Estimated GFR (African America >60 (>=60); Estimated GFR (Non-African Ame >60 (>=60); Glucose 119 mg/dL (74-106); Magnesium 1.2 mg/dL (1.8-2.4); Sodium 136 mmol/L (136-145); Total Protein 8.4 g/dL (6.4-8.2)
[2023-12-07 14:57] LABS: Troponin I High Sensitivity 52.5 pg/mL (4.0-51.3)
[2023-12-07 15:17] LABS: Ethanol <3 mg/dL
[2023-12-07] MEDS: MAGNESIUM SULFATE IN WATER 2 GM/50 ML PREMIX IV (15:59)
[2023-12-07 16:10] LABS: Troponin I High Sensitivity 46.4 pg/mL (4.0-51.3)
--- NOTE | 2023-12-07 18:03 | ED.AMS1 ---
HPI - Altered Mental Status General Chief Complaint: Altered Mental Status Stated Complaint: ALTERED MENTAL Time Seen by Provider: 12/07/23 13:59 Source: patient and law enforcement Mode of arrival: law enforcement Limitations: no limitations History of Present Illness HPI narrative: The patient presented to us after she was in a hotel and apparently she did not leave by the time that she was supposed to be leaving checked out, the patient lives there after she left her daughter house because she does not like living with her daughter, the newspaper editor found that the patient not following commands and could be confused and that why they brought her over here. Upon presentation the patient is denying any complain mentioned that she does not want to be here, the patient was evaluated last time due to alcohol intoxication but right now she is denying any alcohol intake, she was mentioned that she left her daughter house because her daughter was bossing her around, the patient requested some food mentioned that she is hungry Related Data Home Medications ?Medication ?Instructions ?Recorded ?Confirmed No Known Home Medications 12/07/23 12/07/23 Allergies Allergy/AdvReac Type Severity Reaction Status Date / Time No Known Drug Allergies Allergy Verified 07/13/23 10:35 Review of Systems ROS Status of ROS 10 or more systems reviewed and unremarkable except as noted in history and below [facility] Social History Smoking status: Never smoker Exam Narrative Exam Narrative: Nurses notes and vital signs reviewed and patient is not hypoxic. General: Well-appearing and in no apparent distress. Skin: Warm, dry, no pallor noted. No rash. Head: Normocephalic, atraumatic. Neck: Supple, non-tender. Eye: Pupils are equal, round and EOMI. No scleral icterus. Ears, Nose, Mouth, and Throat: TM are clear, no nasal mucosal hypertrophy. Oral mucosa is moist, no posterior oropharynx erythema, uvula is mid-line Cardiovascular: Regular Rate and Rhythm without murmur, gallop or rub. Respiratory: No accessory muscle use or respiratory distress. Lungs are clear to auscultation, no wheezing, rales or rhonchi Chest Wall: no tenderness Back: No midline thoracic or lumbar vertebral tenderness. No CVA tenderness Musculoskeletal: normal ROM, no calf or popliteal tenderness, the patient have a ulcer on her right big toe that is healing no signs of infection. GI: Abdomen is soft, non-distended. Normal bowel sounds. No masses appreciated. No tenderness to palpation. No rebound, guarding, or rigidity noted. Neurological: A&O x3 No cranial nerve dysfunction observed. No truncal ataxia. Moves all extremities. Sensation intact. Psychiatric: Cooperative and interactive. Normal mood and affect. Constitutional Vital Signs, click to edit/add: Last Vital Signs Temp 99.5 F 12/07/23 14:00 Pulse 84 12/07/23 14:00 Resp 20 12/07/23 14:00 BP 145/65 H 12/07/23 16:15 Pulse Ox 97 12/07/23 15:04 O2 Del Method Room Air 12/07/23 15:04 Course Vital Signs Vital signs: Vital Signs Temperature 99.5 F 12/07/23 14:00 Pulse Rate 84 12/07/23 14:00 Respiratory Rate 20 12/07/23 14:00 Blood Pressure 172/98 H 12/07/23 14:00 Pulse Oximetry 98 12/07/23 14:00 Oxygen Delivery Method Room Air 12/07/23 14:00 Temperature 99.5 F 12/07/23 14:00 Pulse Rate 84 12/07/23 14:00 Respiratory Rate 12/07/23 14:00 Blood Pressure 145/65 H 12/07/23 16:15 Pulse Oximetry 97 12/07/23 15:04 Oxygen Delivery Method Room Air 12/07/23 15:04 MDM - Altered Mental Status MDM Narrative Medical decision making narrative: The patient blood workup showed initially that her magnesium was low and she had IV magnesium to replace it EKG was showing sinus rhythm with a heart rate of [address] elevation or depression Troponin initially was mildly elevated the second 1 was going down mostly the first 1 was just lab abnormality at the patient have no complaints. The patient still continues to have chronic anemia Alcohol level is negative Patient was started on Keflex because of urine infection but right now initially her son was going to come and get her The patient did not want to be admitted and she is right now still competent to make her own decision Right now her son initially mentioned that he is going to come and get her up with we are trying to reach him I will sign out to the next caregiver further evaluation for safe discharge Lab Data Labs: Lab Results 12/07/23 12/07/23 Range/Units 14:20 15:44 WBC 6.4 (4.0-11.0) 10^3/uL RBC 3.13 L (4.20-5.40) 10^6/uL Hgb 8.1 L (12.0-16.0) g/dL Hct 27.1 L (36.0-48.0) % MCV 86.6 (81.0-99.0) fL MCH 25.9 L (26.7-34.0) pg MCHC 29.9 (29.9-35.2) g/dL RDW 16.5 H (11.0-15.0) % Plt Count 185 (150-450) 10^3/uL MPV 10.3 (9.5-13.5) fL Neut % (Auto) 67.2 (43.0-75.0) % Lymph % (Auto) 21.0 (20.5-60.0) % [place] % (Auto) 8.6 (1.7-12.0) % Eos % (Auto) 1.7 (0.9-7.0) % Baso % (Auto) 0.6 (0.2-2.0) % Neut # (Auto) 4.3 (1.4-6.5) 10^3/uL Lymph # (Auto) 1.3 (1.2-3.8) 10^3/uL [place] # (Auto) 0.6 (0.3-0.8) 10^3/uL Eos # (Auto) 0.1 (0.0-0.7) 10^3/uL Baso # (Auto) 0.0 (0.0-0.1) 10^3/uL Abs Immat Gran (auto) 0.06 H (0.00-0.03) 10^3/uL Imm/Tot Granulo (auto) 0.9 H (0.0-0.5) % Sodium 136 (136-145) mmol/L Potassium 4.0 (3.5-5.1) mmol/L Chloride 101 (98-107) mmol/L Carbon Dioxide 25.0 (21.0-32.0) mmol/L Anion Gap 14.0 BUN 18.0 (7.0-18.0) mg/dL Creatinine 0.61 (0.55-1.02) mg/dL Est GFR ( Amer) >60 (>=60) Est GFR (Non-Af Amer) >60 (>=60) BUN/Creatinine Ratio 29.5 Glucose 119 H (74-106) mg/dL Calcium 9.7 (8.5-10.1) mg/dL Magnesium 1.2 L (1.8-2.4) mg/dL Total Bilirubin 1.4 H (0.2-1.0) mg/dL AST 59 H (15-37) U/L ALT 36 (14-59) U/L Alkaline Phosphatase 106 (46-116) U/L Troponin I High Sens 52.5 H* 46.4 (4.0-51.3) pg/mL Total Protein 8.4 H (6.4-8.2) g/dL Albumin 3.4 (3.4-5.0) g/dL Globulin 5.0 g/dL Albumin/Globulin Ratio 0.7 Urine Color Yellow (YELLOW) Urine Clarity Clear (CLEAR) Urine pH 6.5 (5.0-9.0) Ur Specific [place] 1.015 (1.005-1.025) Urine Protein Negative (NEG/TRACE) mg/dL Urine Glucose (UA) Negative (NEGATIVE) mg/dL Urine Ketones Negative (NEGATIVE) mg/dL Urine Occult Blood Small A (NEGATIVE) Urine Nitrite Negative (NEGATIVE) Urine Bilirubin Negative (NEGATIVE) Urine Urobilinogen 1.0 (0.2-1.0) EU/dL Ur Leukocyte Esterase Large A (NEGATIVE) Urine RBC 10-20 A (0-2) #/HPF Urine WBC 20-50 A (NONE SEEN) #/HPF Ur Squamous Epith Cells Few A (NONE/RARE) #/LPF Urine Bacteria Large A (NONE SEEN) #/HPF Urine Mucus None seen (NONE SEEN) Ur Culture Indicated? Yes Urine Opiates Screen Negative (NEGATIVE) Ur Buprenorphine Scrn Negative (NEGATIVE) Ur Oxycodone Screen Negative (NEGATIVE) Urine Methadone Screen Negative (NEGATIVE) Ur Barbiturates Screen Negative (NEGATIVE) U Tricyclic Antidepress Negative (NEGATIVE) Ur Phencyclidine Scrn Negative (NEGATIVE) Ur Amphetamines Screen Negative (NEGATIVE) U Methamphetamines Scrn Negative (NEGATIVE) U Benzodiazepines Scrn Negative (NEGATIVE) Urine Cocaine Screen Negative (NEGATIVE) U Cannabinoids Screen Negative (NEGATIVE) Ethanol Quant <3 mg/dL Discharge Plan Discharge Patient Disposition: Still a Patient
--- NOTE | 2023-12-07 18:34 | PC.NURSE ---
Attempted to call Lawanda and Gerber, daughter and son, with no answer from both. Both voicemail boxes are full and unable to leave voicemails. Gerber's number is [phone]
[2023-12-07] MEDS: CEPHALEXIN 500 MG CAPSULE PO (19:28)
--- NOTE | 2023-12-07 20:18 | PC.NURSE ---
Pt's family arrived and spoke with Dr. Adams Pt's family left and got pt's car Discharge instructions were gone over with pt and her family and information regarding her prescription as well as adult care services Pt then ambulated to ER exit with her family
== END 2023-12-07 20:30 | disposition home or self-care (01) ==
PROVIDERS: Emergency Provider Emergency Medicine
DX: N39.0 Urinary tract infection, site not specified (principal); E83.42 Hypomagnesemia; Z59.00 Homelessness unspecified
CPT/HCPCS: 36415; 80053; 80307; 80320; 81001; 83735; 84484; 85025; 87086; 93005; 96365; 99284

== ENCOUNTER 2025-04-13 13:49 | Outpatient (REF) | payer MEDICAID, MEDICARE, SELFPAY ==
--- OUTSIDE RECORDS SUMMARY | 2025-04-13 13:52 | XMS_ITS | Clinical Summary ---
Author Organization Anipip[facility] tem Address [id number] [address] [place] [address] Care Team Providers Care Track Inspector Name Role Phone Sylvain Amaro DO Primary Care Provider + [phone] Allergies Active Allergy Reactions Criticality Noted Date Comments Amlodipine Swelling 03/27/2021 Medications traZODone (DESYREL) 50 mg tablet Take 1 tablet (50 mg total) by mouth nightly as needed for sleep. 12/30/2023 Active donepeziL (ARICEPT) 5 mg tablet Take 1 tablet (5 mg total) by mouth nightly. 12/30/2023 Active atorvastatin (LIPITOR) 10 mg tabletIndicatio ns:Type 2 diabetes mellitus without complication, without long-term current use of insulin ([facility]) Take 1 tablet (10 mg total) by mouth in the morning. 02/04/2025 Active Active Problems Problem Noted Date Diagnosed Date Pica 10/27/2024 Obsessive-compulsive disorder 03/03/2024 Wounds, open, face, multiple 03/03/2024 Open wound of right great toe without damage to nail 02/06/2024 Other abnormalities of gait and mobility 024 Muscle weakness (generalized) 02/06/2024 Anemia 02/06/2024 Dry gangrene 02/03/2024 Acute cystitis without hematuria 02/03/2024 Dementia 02/03/2024 Open dislocation of great toe of right foot 01/18 Spontaneous rupture of exten sor tendons, right ankle and foot 02/03/2024 Hyponatremia 10/19/2021 Essential hypertension 10/19/2021 Aphthous ulcer of mouth 10/19/2021 Resolved Problems Problem Noted Date Diagnosed Date Resolved Date Pneumonia 10/20/2021 10/17/2024 Community acquired pneumonia of left lung 10/19/2021 10/17/2024 Encounters Date Type Department Care Team Description 03/04/2025 Continuing Care [facility] - [facility] [address] [place] [address] Sylvain Amaro, Excoriation (skin-picking) disorder (Primary Dx); Essential hypertension; Multiple open wounds of face, subsequent encounter; Moderate dementia with other behavioral disturbance, unspecified dementia type ([facility]) 02/04/2025 Continuing Care [facility] [address] [place] [address] Sylvain Amaro DO Type 2 diabetes mellitus without complication, without long-term current use of insulin ([facility]) (Primary Dx); Multiple open wounds of face, subsequent encounter; Moderate dementia with other behavioral disturbance, unspecified dementia type ([facility]); Thrombocytopenia from Last 3 Months Immunizations Immunization Administration Dates Next Due Influenza (IM) Preservative Free 06/29/2015 Influenza, High-dose, Quadrivalent 06/02/2022 Influenza, Im Trivalent Preservative 06/05/2016 Influenza, Injectable, Mdck, Preservative Free, Quad 05/02/2020,05/29/2018 Social History Tobacco Use Types Packs/Day Years Used Date Smoking Tobacco: Every Day Vaping/E-cigarettes Smokeless Tobacco: Never Tobacco Cessation:Ready to Q uit: Not Asked; Counseling Given: Not Answered Alcohol Use Standard Drinks/Week Comments Not Currently 0 (1 standard drink = 0.6 oz pur e alcohol) Childcare Answer Date Recorded Childcare Unknown 12/30/2018 Employment Answer Date Recorded Employment Unknown 12/30/2018 Hunger Screening Answer Date Recorded Within the past 12 months we worried whether our food would run out before we got money to buy more. Never True 12/24/2023 Within the past 12 months th e food we bought just didn't last and we didn't have money to get more. Never True 12/24/2023 Purpose - Life Answer Date Recorded Purpose and direction in life Unknown Comments No Sex and Gender Information Value Date Recorded Sex Assigned at Not on file Legal Sex Female 12:07 PM EDT Gender Identity Not on file Sexual Orientation Not on file Last Filed Vital Signs Vital Sign Reading Time Taken Comments Blood Pressure 146/67 03/04/2025 3:30 PM EDT Pulse 62 03/04/2025 3:30 PM EDT Temperature 36.6 C (97.8 F) 03/04/2025 3:30 PM EDT Respiratory Rate 18 03/04/2025 3:30 PM EDT Oxygen Saturation 96% 03/04/2025 3:30 PM EDT Inhaled Oxygen Concentration - - Weight 90.6 kg (199 lb 12.8 oz) 03/04/2025 3:30 PM EDT Height 160 cm (5' 3 ) 07/02/2023 3:19 PM EST Body Mass Index 35.39 07/02/2023 3:19 PM EST Plan of Treatment Health Maintenance Due Date Last Done Comments Diabetic Ophthalmology Exam 1953 Tobacco Counseling 1953 Depression Screening 1965 Diabetic Foot Exam 09/23/1971 DTaP,Tdap and Td Vaccines (1 - Tdap) 1972 Zoster (Shingles) Vaccine (1 of 2) 09/23/2003 Fall Risk Screening 2018 COVID-19 Vaccine (3 - 2024-2 6 season) 2025 10/13/2020, 09/15/2020 Influenza Vaccine 03/21/2025 06/02/2022, , 05/29/2018, Additional history exists Tobacco Screening 04/13/2025 04/13/2024 Statin Use: Diabetic 02/04/2026 02/04/2025 Adult BMI Screening 03/04/2026 03/04/2025 Medical Devices Not on file Insurance MEDICAID [place] [employer] MEDICARE Advance Directives * Full Code (Latest Code Status on File) Date Activated Date Inactivated Comments 10/20/2021 8:17 PM 10/21/2021 2:07 PM Care Teams Track Inspector Relationship Specialty Start Date End Date Sylvain Amaro DO [address], [facility] [place] [address] PCP - General Family Medicine 04/13/24
--- OUTSIDE RECORDS SUMMARY | 2025-04-13 13:52 | XMS_ITS | Clinical Summary ---
Author Organization [facility] Address [address] [place] [address] Care Team Providers Care Assembler [employer] Turbine Name Role Phone Unavailable Primary Care Provider Unavailabl e Allergies Active Allergy Reactions Criticality Noted Date Comments Amlodipine Swelling 03/27/2021 Medications donepezil (Aricept) 10 MG tablet 5 Active escitalopram (Lexapro) 10 MG tablet 5 Active memantine (Namenda) 5 MG tablet 5 Active ondansetron (Zofran) 4 MG tablet 5 Active traZODone (Desyrel) 50 MG tablet 5 Active acetaminophen (Tylenol) 325 MG suppository Insert into the rectum Active bacitracin 500 UNIT/GM ointment Apply topically 2 (two) times a day Active ferrous sulfate 325 (65 Fe) MG EC tablet Take 325 mg by mouth in the morning and 325 mg at noon and 325 mg in the evening. Take with meals. Do not crush, chew, or split.. Active hydrocortisone 2.5 % creamIndications :Prurigo nodularis Apply thin layer to affected areas on face bid prn for flares 30 g 11 5 Active hydrOXYzine HCl (Atarax) 25 MG tabletIndication s:Staphylococcos is Take 1 tablet, by mouth, as needed for itching, 30 day supply. 30 tablet 3 5 Active Active Problems No known active problems Encounters Date Type Department Care Team Description 03/30/2025 Abstract [facility] [address] [place] [id number] Unallocated, Flor Castano MD from Last 3 Months Family History Medical History Relation Name Comments Melanoma Neg Hx Social History Tobacco Use Types Packs/Day Years Used Date Smoking Tobacco: Every Day Cigarettes Smokeless Tobacco: Never Tobacco Cessation:Ready to Q uit: Not Asked Comments Unknown Sex and Gender Information Value Date Recorded Sex Assigned at Not on file Legal Sex Female 4:27 PM EST Gender Identity Not on file Sexual Orientation Not on file Plan of Treatment Not on file Insurance MEDICAID [place] UNITED [employer]ARE MEDICARE
--- OUTSIDE RECORDS SUMMARY | 2025-04-13 13:52 | XMS_ITS | Encounter Summary ---
Author Organization [facility] Address [address] [place] [address] Care Team Providers Care Tailer Out Name Role Phone Unavailable Primary Care Provider Unavailabl e Encounter Details Date Type Department Care Team (Late st Contact Info) Description 03/30/2025 Abstract [facility] [address] [place] [id number] Unallocated, [facility] Provider, [address] [place], [place] [id number] Social History Tobacco Use Types Packs/Day Years Used Date Smoking Tobacco: Every Day Cigarettes Smokeless Tobacco: Never Comments Unknown Sex and Gender Information Value Date Recorded Sex Assigned at Not on file Legal Sex Female 4:27 PM EST Gender Identity Not on file Sexual Orientation Not on file documented as of this encounter Plan of Treatment Not on file documented as of this encounter Visit Diagnoses Not on filedocumented in this encounter
--- OUTSIDE RECORDS SUMMARY | 2025-04-13 13:52 | XMS_ITS | Clinical Summary ---
Author Organization [facility] Address [facility] [place] [address] Care Team Providers Care Bark Spudder Name Role Phone Unavailable Primary Care Provider Unavailabl e Allergies No known active allergies Medications acetaminophen (TYLENOL) 325 mg tablet Take 650 mg by mouth every 6 hours as needed. Active cholecalciferol , vitamin D3, (VITAMIN D3 ORAL) Take by mouth. Active magnesium oxide (MAG-OX) 400 mg (241.3 mg magnesium) tablet Take 400 mg by mouth once daily. Active potassium chloride SR (MICRO-K) 8 mEq cpER Take by mouth once daily. Active hydrALAZINE (APRESOLINE) 25 mg tablet Take 25 mg by mouth three times daily. Active allopurinol (ZYLOPRIM) 300 mg tablet Take 300 mg by mouth once daily. Active ferrous sulfate 325 mg (65 mg iron) tablet Take 325 mg by mouth daily with breakfast. Active hydrOXYzine pamoate (VISTARIL) 25 mg capsule Take 25 mg by mouth three times daily as needed. Active atenolol (TENORMIN) 100 mg tablet Take 100 mg by mouth once daily. Active Ibuprofen 200 mg cap Take by mouth every 6 hours as needed. Active doxycycline hyclate (VIBRAMYCIN) 100 mg capsule take 1 capsule by mouth twice a day for 7 days 10/15/2021 Active hydroCHLOROthia zide (HYDRODIURIL, ESIDRIX) 25 mg tablet Take 25 mg by mouth once daily. 09/11/2021 Active guaifenesin/pse udoephedrne HCl (MUCINEX D MAXIMUM STRENGTH ORAL) Take by mouth twice daily. Active Immunizations Immunization Administration Dates Next Due influenza (IIV3) vaccine, tr ivalent (AFLURIA, FLULAVAL, FLUVIRIN, FLUZONE) 06/05/2016 influenza (IIV3) vaccine, tr ivalent, PF (AFLURIA, FLUARIX, FLULAVAL, FLUVIRIN, FLUZONE) 06/29/2015 influenza (ccIIV4) vaccine, age 6+ mo, quadrivalent, PF (FLUCELVAX) 05/02/2020,05/29/2018 Family History Relation Status Comments Father Mother Social History Tobacco Use Types Packs/Day Years Used Date Smoking Tobacco: Former Cigarettes Smokeless Tobacco: Never Alcohol Use Standard Drinks/Week Comments Yes 0 (1 standard drink = 0.6 oz pur e alcohol) Comments No Sex and Gender Information Value Date Recorded Sex Assigned at Not on file Legal Sex Female 11:45 AM EDT Gender Identity Not on file Sexual Orientation Not on file Last Filed Vital Signs Vital Sign Reading Time Taken Comments Blood Pressure 132/67 10/30/2021 10:47 AM EDT Pulse 90 10/30/2021 10:47 AM EDT Temperature 37 C (98.6 F) 10/30/2021 10:47 AM EDT Respiratory Rate 20 10/30/2021 10:4 7 AM EDT Oxygen Saturation 91% 10/30/2021 10: 47 AM EDT Inhaled Oxygen Concentration - - Weight 77.1 kg (170 lb) 10/16/2021 10:5 8 AM EDT verbal per patient Height 162 cm (5' 3.78 ) 10/30/2021 10: 47 AM EDT Body Mass Index 29.38 10/16/2021 10:58 AM EDT Plan of Treatment Health Maintenance Due Date Last Done Comments Anxiety Screening 09/23/1971 Depression Screening 09/23/1971 Hepatitis C Screening 09/23/1971 DTaP,Tdap,Td Vaccine (1 - Tdap) [address] Colonography 1998 Cologuard (FIT-DNA) 1998 Colonoscopy 1998 Colorectal Cancer Screening 1998 Fecal Occult Blood 1998 Lipid Screening 1998 Sigmoidoscopy 1998 Pneumococcal Vaccine: 50+ (1 of 1 - PCV) 09/23/2003 Shingrix Vaccine (1 of 2) 09/23/2003 Bone Density Screening 2018 Advance Directive Discussion 07/21/2024 Diabetes Screening 10/30/2024 10/30/2021, 0 10/21/2021, 10/20/2021, Additional history exists Influenza Vaccine (#1) 2025 , 05/29/2018, 06/05/2016, Additional history exists RSV Vaccine (1 - 1-dose 75+ series) 2028 Procedures Procedure Name Priority Date/Time Associated Diagnosis Comments COMPREHENSIVE METABOLIC PANEL Routine 10/30/2021 11:33 AM EDT Normocytic anemia from Last 3 Months or Most Recently Relevant to Health Maintenance Results * (ABNORMAL) COMP METABOLIC PANEL (10/30/2021 11:33 AM EDT) Pathologist [facility] Protein, Total 6.8 6.3 - 8.0 g/dL 10/30/2021 12:44 PM EDT [facility] Albumin 4.0 3.9 - 4.9 g/dL 10/30/2021 12:44 PM EDT [facility] Calcium, Total 9.7 8.5 - 10.2 mg/dL 10/30/2021 12:44 PM EDT [facility] Bilirubin, Total 0.2 0.2 - 1.3 mg/dL 10/30/2021 12:44 PM EDT [facility] Alkaline Phosphatase 106 34 - 123 U/L 10/30/2021 12:44 PM EDT [facility] AST 20 13 - 35 U/L 10/30/2021 12:44 PM EDT [facility] ALT 24 7 - 38 U/L 10/30/2021 12:44 PM EDT [facility] Glucose 106(H) 74 - 99 mg/dL 10/30/2021 12:44 PM EDT [facility] Comment: The [place] [employer] (ADA) provides guidance for cutoff [...] Standards of Medical Care in Diabetes 2016, [place] [employer]. Diabetes Care. 2016.39(Suppl 1). BUN 14 7 - 21 mg/dL 10/30/2021 12:44 PM EDT [facility] Creatinine 0.61 0.58 - 0.96 mg/dL 10/30/2021 12:44 PM EDT [facility] Sodium 136 136 - 144 mmol/L 10/30/2021 12:44 PM EDT [facility] Potassium 3.8 3.7 - 5.1 mmol/L 10/30/2021 12:44 PM EDT [facility] Chloride 100 97 - 105 mmol/L 10/30/2021 12:44 PM EDT [facility] CO2 27 22 - 30 mmol/L 10/30/2021 12:44 PM EDT [facility] Anion Gap 9 9 - 18 mmol/L 10/30/2021 12:44 PM EDT [facility] Estimated Glomerular Filtration Rate 98 >=60 mL/min/1. 73m 10/30/2021 12:44 PM EDT [facility] Comment:Estimated Glomerular Filtration Rate (eGFR) is calculated using the 2020 CKD-EPI creatinine equation. This equation utilizes serum creatinine, sex, and age as parameters. The creatinine assay has traceable calibration to isotope dilution- mass spectrometry. Refer to KDIGO guidelines for clinical interpretation. In patients with unstable renal function, e.g. those with acute kidney injury, the eGFR may not accurately reflect actual GFR. Blood BLOOD SPECIMEN / Unknown Venipuncture / Unknown 10/30/2021 11:33 AM EDT 10/30/2021 11:33 AM EDT us Carl Patel MD LABORATORY Final Result [facility] [address] [place] [address] from Last 3 Months or Most Recently Relevant to Health Maintenance Insurance [employer] ADVANTAGE HMO
--- OUTSIDE RECORDS SUMMARY | 2025-04-13 13:52 | XMS_ITS | Clinical Summary ---
Author Organization [facility] Address [address] [facility] [address] Phone Care Team Providers Care Timber Deadener Name Role Phone Unavailable Primary Care Provider Unavailabl e Social History Tobacco Use Types Packs/Day Years Used Date Smoking Tobacco: Never Assessed Comments Unknown Sex and Gender Information Value Date Recorded Sex Assigned at Not on file Legal Sex Female 9:51 AM EST Gender Identity Not on file Sexual Orientation Not on file Plan of Treatment Not on file
--- OUTSIDE RECORDS SUMMARY | 2025-04-13 13:52 | XMS_ITS | Encounter Summary ---
Author Organization [facility] Address [facility] [place] [address] Care Team Providers Care Human Performance Professor Name Role Phone Unavailable Primary Care Provider Unavailabl e Source Comments In the event this information is protected by the Federal Confidentiality of Alcohol and Drug AbusePatient Records regulations: The Federal rules restrict any use of the information to criminally investigate or prosecute any alcohol or drug abuse patient.[facility] Encounter Details Date Type Department Care Team (Latest Contact Info) Description 10/15/2021 H&P External-NonCCF Provider, External, RENÉ Do not enter address information under generic External Provider. Social History Tobacco Use Types Packs/Day Years Used Date Smoking Tobacco: Former Cigarettes Smokeless Tobacco: Never Alcohol Use Standard Drinks/Week Comments Yes 0 (1 standard drink = 0.6 oz pur e alcohol) Comments Unknown Sex and Gender Information Value Date Recorded Sex Assigned at Not on file Legal Sex Female 11:45 AM EDT Gender Identity Not on file Sexual Orientation Not on file COVID-19 Exposure Response Date Recorded In the last 10 days, have yo u been in contact with someone who was confirmed or suspected to have Coronavirus/COVID-19? No / Unsure 10/16/2021 10:59 AM EDT documented as of this encounter Plan of Treatment Not on file documented as of this encounter Visit Diagnoses Not on filedocumented in this encounter
--- OUTSIDE RECORDS SUMMARY | 2025-04-13 13:52 | XMS_ITS | Encounter Summary ---
Author Organization [facility] Address [facility] [place] [address] Care Team Providers Care News Broadcaster Name Role Phone Unavailable Primary Care Provider Unavailabl e Source Comments In the event this information is protected by the Federal Confidentiality of Alcohol and Drug AbusePatient Records regulations: The Federal rules restrict any use of the information to criminally investigate or prosecute any alcohol or drug abuse patient.[facility] Encounter Details Date Type Department Care Team (Latest Contact Info) Description 10/12/2021 H&P External-NonCCF Provider, External, PADuarteC Do not enter address information under generic [...]
--- OUTSIDE RECORDS SUMMARY | 2025-04-13 13:57 | XMS_ITS | CCD ---
Author Organization [facility] Inform ion [facility] Care Team Providers Care Pastry Assistant Name Role Phone Unavailable Primary Care Provider UnavailAYSHA Mi Primary Care Physician MD Aysha Clements Primary Care Provider DO Remy Motley Emergency Provider [phone] MD Tey Subramanian Admit Provider [phone] MD Tye Subramanian Attending Provider Aysha Clements Primary Care Unavailable Tye Subramanian Admitting Unavailable Tye Subramanian Attending Unavailable Matthew Laird Attending UnavailAysha Solis Primary Care Unavailable Matthew Laird Admitting UnavailMatthew Rodriguez Attending UnavailAysha Solis Primary Care Unavailable Emanuel Clark Consulting Unavailable Kirstie Scott Admitting Unavailable Dottie Cade Consulting Unavailable Liliana Willett Unavailable Unavailable Primary Care Provider Unavailkunal e No Family, Physician Primary Care Unavailable MARINO MARINO Attending Unavailable CHERRY GONZALEZ Admitting Unavailable CHERRY GONZALEZ Attending Unavailable CARLOS MERCADO Referring Unavailable VERONICA BETANCOURT Consulting Unavailable KENZIE CRISTINA Attending Unavailable [facility] Primary Care Unava ilable LANG GRAHAM Attending Unavailable SYLVAIN GONZALEZ Primary Care Unavailable BENJY SCHWARTZ Attending Unavailable BENJY SCHWARTZ Referring Unavailable SYLVAIN GONZALEZ Primary Care Unavailable BENJY SCHWARTZ Attending Unavailable BENJY SCHWARTZ Referring Unavailable SYLVAIN GONZALEZ Primary Care Unavailable Unavailable Primary Care Provider UnavailLuke Lindsey DOnis G Primary Care Provider [phone] Unavailable [facility] KALEN DONOHUE Attending Unavailable SYLVAIN GONZALEZ Referring Unavailable KALEN DONOHUE Attending Unavailable Sylvain Gonzalez DO Primary Care Provider ALEX MELITONALLIE Referring Unavailable Allergies Allergy Classification Reported Allergen(s) Allergy Type Date of Onset Reaction(s) Facility (20 sources) amLODIPine; Translations: [amlodipine] Drug Allergy 03-27-2021 [facility] Fredo (1 source) amLODIPine Drug Allergy 06-01-2022 [facility] Repository Medications Current Medications Medication Drug Class(es) Dates Sig (Normalized) Sig (Original) acetaminophen 325 mg oral tablet (10 sources) Start: 09-29-2021 take 650 mg by mouth every six hours Acetaminophen Active 650 MG PO Every 6 hours 0 September 29, 2021 12:00am acetaminophen (T ylenol) 325 MG suppository Insert into the rectum Active take 2 tablets by mo uth every six hours as needed acetaminophen (TYLENOL) 325 mg tablet Ta ke 650 mg by mouth every 6 hours as needed. Active Comment on above: Take 650 mg by mouth every 6 hours as needed. allopurinol 300 mg oral tablet (6 sources) Xanthine Oxidase Inhibitor Start: 09-28-2021 take [...] q12hr, # 2 tab(s), Refills(s) 0, Pharmacy: [address], 160, cm, 10/18/21 8:22:00 EDT, Height/Length Dosing, 77.2, kg, 10/18/21 8:22:00 EDT, Weight Dosing Start Date: 10/18/21 Status: Ordered atenolol 50 mg oral tablet (7 sources) beta-Adrenergic Lupe Start: 0 take 1 mg by mouth once daily atenolol 50 mg Tab mg tab(s), Oral, Daily, Refills(s) 0 Start Date: 09/28/21 Status: Ordered take 1 tablet by mouth once yovani y atenolol (TENORMIN) 100 mg tablet Take 100 mg by mouth once daily. Active Comment on above: Take 50 mg by mouth once daily. Take 100 mg by mouth once daily. atorvastatin 10 mg oral tablet (5 sources) HMG-CoA Reductase Inhibitor Start: 5 take 1 tablet by mouth in the morning atorvastatin (LIPITOR) 10 mg tablet Indications: Type 2 diabetes mellitus without complication, without long-term current use of insulin ([facility]) Take 1 tablet (10 mg total) by mouth in the morning. 02/04/2025 Active Start: 03-24-2020 take 1 mg by mouth once daily atorvastatin 40 mg Tab mg tab(s), Oral, Daily, Refills(s) 0 Start Date: 09/28/21 Status: Ordered bacitracin zinc 0.5 unt/mg topical ointment (5 sources) bacitracin 500 UNIT/GM ointment Apply topically 2 (two) times a day Active cephalexin 500 mg oral capsule (2 sources) Cephalosporin Antibacterial Start: 4 End: 4 take 1 capsule by mouth in the morning, then take 1 capsule by mouth at bedtime CEPHalexin (KEFLEX) 500 mg capsule Take 1 capsule (500 mg total) by mouth in the morning and 1 capsule (500 mg total) before bedtime. Do all this for 10 days. 20 capsule 04/13/2024 04/23/2024 Active Start: 08-20-2023 take 1 capsule by [facility] every eight hours Cephalexin 500 MG 1 capsule Orally tid for 10 day(s) Jul, Active cholecalciferol 0.01 mg oral tablet (1 source) Vitamin D Start: 09-29-2021 take 1 tablet by mouth twice daily at mealtime Cholecalciferol (Vitamin D3) (Vitamin D3) 10 mcg (400 unit) Tablet Active 20 MCG PO Twice daily with meals 120 30 September 29, 2021 12:00am cholecalciferol, vitamin D3, (VITAMIN D3 ORAL) (4 sources) cholecalciferol, vitamin D3, (VITAMIN D3 ORAL) Take by mouth. Active cholecalciferol, vitamin D3, (VITAMIN D3 ORAL) Take by mouth. 0 Active Comment on above: Take by mouth. donepezil hydrochloride 10 m g oral tablet (20 sources) Start: 08-06-2024 donepezil (Aricept) 10 MG tablet 08/06/2024 Active Start: 12-30-2023 take 1 tablet by neo once daily donepezil (ARICEPT) 5 MG tablet Take 1 tablet by mouth nightly 30 tablet 3 12/30/2023 Active doxepin hydrochloride 10 mg oral capsule (1 source) Tricyclic Antidepressant Start: 06-01-2022 take 10 mg by mouth once daily at bedtime Doxepin Active 10 MG PO Daily at bedtime June 01, 2022 12:00am doxycycline hyclate 100 mg oral capsule (3 sources) Tetracycline-class Drug Start: 10-15-2021 take 1 capsule by mouth twice daily doxycycline hyclate (VIBRAMYCIN) 100 mg capsule take 1 capsule by mouth twice a day for 7 days 10/15/2021 Active Comment on above: take 1 capsule by mo [facility] twice a day for 7 days escitalopram 10 mg oral tablet (5 sources) Serotonin Reuptake Inhibitor Start: 07-28-2024 escitalopram (Lexapro) 10 MG tablet 07/28/2024 Active ferrous sulfate 325 mg oral tablet (12 sources) Start: 12-30-2023 take 1 tablet by mouth twice daily at mealtime ferrous sulfate (IRON 325) 325 (65 Fe) MG tablet Take 1 tablet by mouth 2 times daily (with meals) 30 tablet 3 12/30/2023 Active Start: 09-28-2021 take 1 mg by mouth once daily ferrous sulfate 325 mg oral enteric coated tablet mg tab(s), Oral, Daily, Refills(s) 0 Start Date: 09/28/21 Status: Ordered Start: 03-24-2020 take 325 mg by mouth once Ferr ous Sulfate Active 325 MG PO every Friday, Friday, and Monday March 23, 2020 11:00pm Comment on above: Take 325 mg by mouth daily with breakfast. hydroCHLOROthiazide 25 mg oral tablet (5 sources) Thiazide Diuretic Start : 09-11 End: 09-29 take 1 tablet by mouth once daily hydroCHLOROthiazide (HYDRODIURIL, ESIDRIX) 25 mg tablet Take 25 mg by mouth once daily. 09/11/2021 Active Comment on above: Take 25 mg by mouth once daily. hydrocortisone 25 mg/ml topical cream (5 sources) Corticosteroid Start : 08-23 hydrocortisone 2.5 % cream Indications: Prurigo nodularis Apply thin layer to affected areas on face bid prn for flares 30 g 11 08/23/2024 Active hydrOXYzine hydrochloride 25 mg oral tablet (9 sources) Antihistamine Start : 09-17 take 1 tablet by mouth every 30 days as needed hydrOXYzine HCl (Atarax) 25 MG tablet Indications: Staphylococcosis Take 1 tablet, by mouth, as needed for itching, 30 day supply. 30 tablet 3 09/17/2024 Active Start: 09-17-2024 [facility] as needed hydrOXYzine HCl (Atarax) 25 MG tablet Indications: Staphylococcosis Take 1 tablet, by mouth, as needed for itching, 30 day supply. 30 tablet 3 09/17/2024 Active Start: 09-28-2021 take 1 mg by mouth f our times daily hydrOXYzine hydrochloride 25 mg Tab mg tab(s), Oral, QID, Refills(s) 0 Start Date: 09/28/21 Status: Ordered Start: 03-24-2020 take 25 mg by mouth three to four times daily Hydroxyzine Hcl Active 25 MG PO 3-4 TIMES DAILY March 23, 2020 11:00pm take 1 capsule by mo [facility] every eight hours as needed hydrOXYzine pamoate (VISTARIL) 25 mg capsule Take 25 mg by mouth three times daily as needed. Active hydrOXYzine HCl 25 MG take 1 tablet by mouth every 8 to 12 hours if needed for anxiety Oral for 20 Active Comment on above: Take 25 mg by mouth three times daily as needed. ibuprofen 200 mg oral capsule (5 sources) Nonsteroidal Anti-inflammatory Drug Start: 03-24-2020 take 200 mg by mouth once daily Ibuprofen Active 200 MG PO Daily March 23, 2020 11:00pm Ibuprofen 200 mg cap Take by mouth every 6 hours as needed. Active Comment on above: Take by mouth [...] pm magnesium oxide 400 mg oral tablet (6 sources) Start: 06-01-2022 take 400 mg by mouth twice daily Magnesium Oxide Active 400 MG PO Twice daily June 01, 2022 7:16am Start: 09-29-2021 End: 06-01-2022 take 400 mg by mouth once daily Magnesium Oxide Discontinued 400 MG PO Daily September 29, 2021 12:00am June 01, 2022 7:16am Comment on above: Take 400 mg by mouth once daily. memantine hydrochloride 5 mg oral tablet (6 sources) L-moynct-A-aspartat e Receptor Antagonist Start: 4 memantine (Namenda) 5 MG tablet 08/16/2024 Active omeprazole 20 mg delayed release oral capsule (1 source) Proton Pump Inhibitor take 1 capsule by mouth once daily Omeprazole 20 MG 1 capsule 30 minutes before morning meal Orally Once a day for 30 day(s) Active ondansetron 4 mg oral tablet (5 sources) Serotonin-3 Receptor Antagonist Start: 5 ondansetron (Zofran) 4 MG tablet 07/27/2024 Active potassium chloride 20 meq extended release oral tablet (6 sources) Start: take 20 mEq by mouth once daily Potassium Chloride Active 20 MEQ PO Daily June 01, 2022 12:00am Start: 09-29-2021 End: 06-01-2022 take 8 mEq by mouth once daily Potassium Chloride Disc ontinued 8 MEQ PO Daily September 29, 2021 12:00am June 01, 2022 7:14am Comment on above: Take by mouth once d aily. traZODone hydrochloride 50 mg oral tablet (20 sources) Serotonin Reuptake Inhibitor Start: 12-30-2023 take 1 tablet by mouth once daily as needed for sleep traZODone (DESYREL) 50 MG tablet Take 1 tablet by mouth nightly as needed for Sleep 30 tablet 12/30/2023 Active Completed/Discontinued Medications Medication Drug Class(es) Dates Sig (Normalized) Sig (Original) acetaminophen 325 mg / HYDROcodone bitartrate 5 mg oral tablet (1 source) Opioid Agonist Start: 03-24-2020 End: 09-25-2021 take 1 tablet by mouth three times daily as needed for pain Hydrocodone-Acetam inophen Discontinued 5 - 325 TAB PO As Directed March 23, 2020 11:00pm September 25, 2021 9:23pm TID prn pain guaifenesin/pseudoep hedrne HCl (MUCINEX D MAXIMUM STRENGTH ORAL) (1 source) guaifenesin/pseu do ephedrne HCl (MUCINEX D MAXIMUM STRENGTH ORAL) Take by mouth twice daily. 0 Active Comment on above: Take by mouth twice daily. hydrALAZINE hydrochloride 25 mg oral tablet (5 sources) Arteriolar Vasodilator Start: 09-29-2021 End: 06-01-2022 take 25 mg by mouth twice daily Hydralazine Discontinued 25 MG PO Twice daily 60 September 29, 2021 12:00am June 01, 2022 7:15am take 1 tablet by neo th three times daily hydrALAZINE (APRESOLINE) 25 mg tablet Ta ke 25 mg by mouth three times daily. Active Comment on above: Take 25 mg by mouth three times daily. suprep bowel prep kit 17.5-3.13-1.6 gm/177ml solution (1 source) Start: 03-13-2020 Suprep Bowel Prep Kit 17.5-3.13-1.6 GM/177ML 177ml at 4pm, 177ml at 11pm the day prior to colonoscopy Orally bid for 1 days Feb, Not-Taking/PRN simethicone 80 mg oral capsule (1 source) Start: 03-13-2020 Simethicone 80 MG 3 tablets Orally the morning of procedure for 1 days Feb, Not-Taking/PRN Problems Active Problems Problem Classification Problem Date Documented Date Episodic/Chronic Administrative/soci al admission (1 source) Homeless; Translations: [Homelessness] 12-14-2023 Episodic Alcohol-related disorders (1 source) Alcohol intoxication Onset: Chronic Anxiety disorders (20 sources) Obsessive-compulsive disorder; Translations: [Obsessive-compulsive disorder, unspecified] Onset: 4 03-03-2024 Chronic Bacterial infection; unspecified site (2 sources) Staphylococcal infectious disease; Translations: [Unspecified staphylococcus as the cause of diseases classified elsewhere] 09-17-2024 Episodic Cardiac and circulatory congenital anomalies (1 source) Arteriovenous malformation of digestive system vessel; 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 Coagulation and hemorrhagic disorders (1 source) Thrombocytopenic disorder; Translations: [Thrombocytopenia, unspecified] 02-04-2025 Chronic Deficiency and other anemia (2 sources) Normocytic anemia; Translations: [Anemia, unspecified] Episodic Delirium, dementia, and amnestic and other cognitive disorders (20 sources) Dementia with behavioral disturbance; Translations: [Moderate dementia with other behavioral disturbance, unspecified dementia type ([facility])] Onset: 4 07-19-2024 Chronic Diabetes mellitus without complication (1 source) Type 2 diabetes mellitus; Translations: [Type 2 diabetes mellitus without complications] 02-04-2025 Chronic Diseases of white blood cells (1 source) Leukocytosis; Translations: [Elevated white blood cell count, unspecified] Chronic Disorders of lipid metabolism (1 source) Hypercholesterolemia 09-28-2021 Chronic Essential hypertension (19 sources) Hypertensive disorder; Translations: [Essential hypertension] Onset: 2 09-28-2021 Chronic Gastritis and duodenitis (1 source) Atrophic gastritis; Translations: [Unspecified chronic gastritis without bleeding] Chronic Gout and other crystal arthropathies (1 source) Gout 09-28-2021 Chronic Miscellaneous mental health disorders (6 sources) Pica; Translations: [Other specified eating disorder] Onset: 5 10-27-2024 Chronic Mood disorders (2 sources) Depressive disorder; Translations: [Depression] 06-01-2022 Chronic Mood disorders (1 source) Mood disorders; Translations: [Depression, unspecified] Onset: 2 Open wounds of head; neck; and trunk (20 sources) Multiple open wounds of face; Translations: [Unspecified open wound of other part of head, subsequent encounter] Onset: 4 07-19-2024 Episodic Other aftercare (2 sources) Other terminal press operator (current) drug therapy; Translations: [Other chcf (current) drug therapy] Onset: 5 Episodic Other connective tissue disease (1 source) Muscle [...] Hydronephrosis; Translations: [Unspecified hydronephrosis] 09-28-2021 Episodic Other inflammatory condition of skin (4 sources) Prurigo nodularis; Translations: [Prurigo nodularis] 08-23-2024 Episodic Other injuries and conditions due to external causes (1 source) Unspecified injury of right foot, sequela Episodic Other lower respiratory disease (2 sources) Cough; Translations: [Cough] Episodic Other nervous system [...] [Rash and other nonspecific skin eruption] Episodic Residual codes; unclassified (2 sources) Altered mental status, unspecified; Translations: [Altered mental status, unspecified] Onset: 5 Episodic Respiratory failure; insufficiency; arrest (adult) (1 source) Respiratory failure; insufficiency; arrest (adult); Translations: [N17.9 - Acute kidney failure, unspecified] Onset: 2 Schizophrenia and other psychotic disorders (2 sources) Brief psychotic disorder; Translations: [Brief psychotic disorder] Onset: 4 Episodic Skin and subcutaneous tissue infections (5 sources) Local infection of the skin and subcutaneous tissue, unspecified; Translations: [Cellulitis of right toe] Onset: 4 Episodic Unclassified (1 source) E87.6 - Hypokalemia; Translations: [E87.6 - Hypokalemia] Onset: 2 Unclassified (1 source) Homelessness unspecified; Translations: [Homelessness unspecified] Onset: 4 Unclassified (1 source) Wound Check Onset: 4 Unclassified (1 source) ILL Onset: 4 Past or Other Problems Problem Classification Problem Date Documented Date Episodic/Chronic Acquired foot deformities (1 source) Acquired right mallet toe; Translations: [Other deformities of toe(s) (acquired), right foot] Onset: 01-23-2024 01-23-2024 Episodic Acute and unspecified renal failure (2 sources) Injury of kidney; Translations: [Acute kidney failure, unspecified] Onset: 09-25-2021 09-27-2021 Episodic Alcohol-related disorders (1 source) Alcohol use, unspecified with intoxication, uncomplicated; Translations: [Alcohol use, unspecified with intoxication, uncomplicated] Onset: 12-24-2023 Episodic Deficiency and other anemia (19 sources) Anemia; Translations: [Anemia, unspecified] Onset: 02-06-2024 09-28-2021 Episodic Deficiency and other anemia (1 source) Anemia, unspecified; Translations: [D64.9 - Anemia, unspecified] Onset: 10-09-2021 Episodic Diseases of mouth; excluding dental (15 sources) Aphthous ulcer of mouth; Translations: [Recurrent oral aphthae] Onset: 10-19-2021 10-19-2021 Episodic Fluid and electrolyte disorders (19 sources) Hypervolemia; Translations: [Fluid overload, unspecified] Onset: 10-19-2021 09-25-2021 Episodic Gangrene (16 sources) Gangrenous disorder; Translations: [Gangrene, not elsewhere classified] Onset: 02-03-2024 02-03-2024 Episodic Genitourinary symptoms and ill-defined conditions (5 sources) Retention of urine; Translations: [Other retention of urine] Onset: 09-25-2021 Episodic Joint disorders and dislocations; trauma-related (16 sources) Traumatic dislocation of great toe; Translations: [Unspecified dislocation of right toe(s), initial encounter] Onset: 02-03-2024 02-03-2024 Episodic Malaise and fatigue (3 sources) Asthenia; Translations: [Weakness] Onset: 09-25-2021 09-25-2021 Episodic Mycoses (1 source) Onychomycosis of toenails; Translations: [Tinea unguium] 04-16-2024 Episodic Open wounds of extremities (16 sources) Open wound of right great toe; Translations: [Unspecified open wound of right great toe without damage to nail, initial encounter] Onset: 01-22-2024 02-06-2024 Episodic Other connective tissue disease (1 source) Other symptoms and signs involving the musculoskeletal system; Translations: [R29.898 - Other symptoms and signs involving the musculoskeletal system] Onset: 09-25-2021 Episodic Other connective tissue disease (1 source) Repeated falls; Translations: [R29.6 - Repeated falls] Onset: 09-25-2021 Episodic Other connective tissue disease (16 sources) Muscle weakness; Translations: [Muscle weakness (generalized)] Onset: 02-06-2024 07-19-2024 Episodic Other connective tissue disease (17 sources) Spontaneous rupture of extensor tendons; Translations: [Spontaneous rupture of extensor tendons, right ankle and foot] Onset: 02-03-2024 02-03-2024 Episodic Other diseases of kidney and ureters (1 source) Unspecified hydronephrosis; Translations: [N13.30 - Unspecified hydronephrosis] Onset: 09-25-2021 Episodic Other nervous system disorders (16 sources) Finding related to ability to move; Translations: [Other abnormalities of gait and mobility] Onset: 02-06-2024 07-19-2024 Episodic Pneumonia (except that caused by tuberculosis or sexually transmitted disease) (20 sources) Community acquired pneumonia; Translations: [Pneumonia, unspecified organism] Onset: 10-19-2021 Resolved: 10-17-2024 10-19-2021 Episodic Residual codes; unclassified (1 source) Acute confusion; Translations: [Disorientation, unspecified] Onset: 01-21-2024 01-21-2024 Episodic Sprains and strains (1 source) Rupture foot extensor tendon; Translations: [Strain of other specified muscles and tendons at ankle and foot level, unspecified foot, initial encounter] Onset: 01-23-2024 01-23-2024 Episodic Urinary tract infections (20 sources) Urinary tract infectious disease; Translations: [Urinary tract infection, site not specified] Onset: 11-15-2021 Episodic Results Test Name Value Interpretation Reference Range Facility Cult,Urineon 03-11-2025 Cult,Urine Specimen Description .CLEAN CATCH URINE Culture ESCHERICHIA COLI >100,000 CFU/ML Report Status FINAL 03/11/2025 SUSCEPTIBILITY Organism ESCHERICHIA COLI Method TITO Ampicillin >=32 RESISTANT Cefazolin (Non-Urine) 4 INTERMEDIATE Cefazolin (Urine) 4 SUSCEPTIBLE Urine specific interpretations are for uncomplicated UTIs only. Ceftriaxone <=0.25 SUSCEPTIBLE Gentamicin <=1 SUSCEPTIBLE Levofloxacin >=8 RESISTANT Nitrofurantoin <=16 SUSCEPTIBLE Piperacillin/Tazobact am <=4 SUSCEPTIBLE Trimethoprim/Sulfa >=320 RESISTANT Resistant [facility] Comment on above: Performed By: #### U #### [place] [address] Mail Processing Equipment Mechanic: Memo eVga MD [facility] [address] [place] [address] Mail Processing Equipment Mechanic: Joseph Jewell MD Basic Metabolic Panelon 02-19 Anion gap [Moles/Vol] 13 mmol/L 9 - 16 mmol/L [facility] Calcium [Mass/Vol] 9.0 mg/dL 8.6 - 10. 4 mg/dL [facility] Chloride [Moles/Vol] 102 mmol/L 98 - 10 7 mmol/L [facility] CO2 [Moles/Vol] 21 mmol/L 20 - 31 mmol/L [facility] Creatinine [Mass/Vol] 0.6 mg/dL 0.50 - 0.90 mg/dL [facility] Est, Reinier Zamora Rate - PINF [facility] Comment on above: These results are not intended for use in patients <18 years of age. eGFR results are calculated without a race factor using the 2020 CKD-EPI equation. Careful clinical correlation is recommended, particularly when comparing to results calculated using previous equations. The CKD-EPI equation is less accurate in patients with extremes of muscle mass, extra-renal metabolism of creatine, excessive creatine ingestion, or following therapy that affects renal tubular secretion. Glucose [Mass/Vol] 198 mg/dL High 74 - 99 mg/dL [facility] Interpretation and review of laboratory results Abnormal [facility] Potassium [Moles/Vol] 4.2 mmol/L 3.7 - 5.3 mmol/L [facility] Sodium [Moles/Vol] 136 mmol/L 136 - 145 mmol/L [facility] Urea nitrogen [Mass/Vol] 20 mg/dL 8 - 23 mg/dL [facility] Urea nitrogen/Creatinine [Mass ratio] 33 mg/mg High 9 - 20 [facility] Basic Metabolic Profon 03-09 Anion gap [Moles/Vol] 13 mmol/L Normal 9-16 [facility] Comment on above: Performed By: #### C BC, BMP #### [facility] [address] [place] [address] Mail Processing Equipment Mechanic: Joseph Jewell MD #### LIPR #### [address] [id number] Mail Processing Equipment Mechanic: Memo Vega MD BUN/CRE Ratio 33 High 9-20 [facility] Comment on above: Performed By: #### C BC, BMP #### [facility] [address] [place], [place] [phone] Mail Processing Equipment Mechanic: Joseph Jewell MD #### LIPR #### [address] [address] Mail Processing Equipment Mechanic: Memo Vega MD Calcium [Mass/Vol] 9.0 mg/dL Normal 8.6-10.4 [facility] Comment on above: Performed By: #### C BC, BMP #### [facility] [address] [place], [place] [phone] Mail Processing Equipment Mechanic: Joseph Jewell MD #### LIPR #### [address] [address] Mail Processing Equipment Mechanic: Memo Vega MD Chloride [Moles/Vol] 102 mmol/L Normal 98-107 [facility] Comment on above: Performed By: #### C BC, BMP #### [facility] [address] [place], [place] [phone] Mail Processing Equipment Mechanic: Joseph Jewell MD #### LIPR #### [address] [address] Mail Processing Equipment Mechanic: Memo Vega MD CO2 [Moles/Vol] 21 mmol/L Normal 20-31 [facility] Comment on above: Performed By: #### C BC, BMP #### [facility] [address] [place], [place] [phone] Mail Processing Equipment Mechanic: Joseph Jewell MD #### LIPR #### [address] [id number] Mail Processing Equipment Mechanic: Memo Vega MD Creatinine [Mass/Vol] 0.6 mg/dL Normal 0.50-0.90 [facility] Comment on above: Performed By: #### C ALEKSANDAR, BMP #### [facility] Lab [address] [place] [address] [place] [address] [employer] Processing Equipment Mechanic: Joseph Jewell MD #### LIPR #### [address] [phone] Mail Processing Equipment Mechanic: Memo Vega MD GFR/1.73 sq M.predicted among non-blacks MDRD (S/P/Bld) [Vol rate/Area] mL/min/{1.73_m2} Normal >60 [facility] Comment on above: Result Comment: These results are not intended for use in patients <18 years of age. eGFR results are calculated without a race factor using the 2020 CKD-EPI equation. Careful clinical correlation is recommended, particularly when comparing to results calculated using previous equations. The CKD-EPI equation is less accurate in patients with extremes of muscle mass, extra-renal metabolism of creatine, excessive creatine ingestion, or following therapy that affects renal tubular secretion. Performed By: #### C ALEKSANDAR BMP #### [address] [place] [address] [employer] Processing Equipment Mechanic: Joseph Jewell MD #### LIPR #### [address] [phone] [employer] Processing Equipment Mechanic: Memo Vega MD Glucose [Mass/Vol] 198 mg/dL High 74-99 [facility] Comment on above: Performed By: #### Jessika HUERTAS, BMP #### [address] [place] [address] [employer] Processing Equipment Mechanic: Joseph Jewell MD #### LIPR #### [address] [phone] Mail Processing Equipment Mechanic: Memo Vega MD Potassium [Moles/Vol] 4.2 mmol/L Normal 3.7-5.3 [facility] Comment on above: Performed By: #### C BC, BMP #### [facility] [address] [place], [place] [phone] Mail Processing Equipment Mechanic: Joseph Jewell MD #### LIPR #### [facility] [address] [place], [place] [phone] Mail Processing Equipment Mechanic: Memo Vega MD Sodium [Moles/Vol] 136 mmol/L Normal 136-145 [facility] Comment on above: Performed By: #### C BC, BMP #### [facility] [address] [place], [place] [phone] Mail Processing Equipment Mechanic: Joseph Jewell MD #### LIPR #### [facility] [address] [place], [place] [phone] Mail Processing Equipment Mechanic: Memo Vega MD Urea nitrogen [Mass/Vol] 20 mg/dL Normal 8-23 [facility] Comment on above: Performed By: #### C BC, BMP #### [facility] [address] [place], [place] [phone] [employer] Processing Equipment Mechanic: Joseph Jewell MD #### LIPR #### [facility] [address] [place] [address] [employer] Processing Equipment Mechanic: Memo Vega MD CBCon 03-09-2025 Erythrocyte distribution width (RBC) [Ratio] 14.4 % 11.8 - 14.4 % [facility] Hematocrit (Bld) [Volume fraction] 40.0 % 36.3 - 47.1 % [facility] Hemoglobin (Bld) [Mass/Vol] 13.0 g/dL 11.9 - 15.1 g/dL [facility] Interpretation and review of laboratory results Abnormal [facility] MCH (RBC) [Entitic mass] 29.1 pg 25.2 - 33.5 pg [facility] MCHC (RBC) [Mass/Vol] 32.5 g/dL 28.4 - 34.8 g/dL [facility] MCV (RBC) [Entitic vol] 89.7 fL 82.6 - 102.9 fL [facility] Nucleated RBC/100 WBC (Bld) [Ratio] 0.0 % 0.0 per 100 WBC [facility] Platelet, Fluorescence 96 Low [address] [facility] Comment on above: RUN REPEATED Platelets (Bld) [#/Vol] See Reflexed IPF Result [facility] Platelets reticulated/100 platelets Auto (Bld) 1.9 % 1.1 - 10.3 % [facility] RBC (Bld) [#/Vol] 4.46 10*6/uL 3.95 - 5.1 1 m/uL [facility] WBC other (Bld) [#/Vol] 5.4 B on [facility] Erythrocyte distribution width (RBC) [Ratio] 14.4 % Normal 11.8-14.4 [facility] Comment on above: Performed By: #### C ALEKSANDAR, BMP #### [address] [place] [phone] Mail Processing Equipment Mechanic: Joseph Jewell MD #### LIPR #### [place] [id number] Mail Processing Equipment Mechanic: Memo Vega MD Hematocrit (Bld) [Volume fraction] 40.0 % Normal 36.3-47.1 [facility] Comment on above: Performed By: #### C ALEKSANDAR, BMP #### [address] [place] [phone] [employer] Processing Equipment Mechanic: Joseph Jewell MD #### LIPR #### [address] [phone] [employer] Processing Equipment Mechanic: Memo Vega MD Hemoglobin (Bld) [Mass/Vol] 13.0 g/dL Normal 11.9-15.1 [facility] Comment on above: Performed By: #### C BC, BMP #### [address] [place] [address] [employer] Processing Equipment Mechanic: Joseph Jewell MD #### LIPR #### [place] [id number] [place], [place] [phone] Mail Processing Equipment Mechanic: Memo Vega MD MCH (RBC) [Entitic mass] 29.1 pg Normal 25.2-33.5 [facility] Comment on above: Performed By: #### C BC, BMP #### [address] [place] [address] [employer] Processing Equipment Mechanic: Joseph Jewell MD #### LIPR #### [address] [phone] Mail Processing Equipment Mechanic: Memo Vega MD MCHC (RBC) [Mass/Vol] 32.5 g/dL Normal 28.4-34.8 [facility] Comment on above: Performed By: #### Jessika HUERTAS, BMP #### [address] [place] [phone] Mail Processing Equipment Mechanic: Joseph Jewell MD #### LIPR #### [place] [phone] Mail Processing Equipment Mechanic: Memo Vega MD MCV (RBC) [Entitic vol] 89.7 fL Normal 82.6-102.9 [facility] Comment on above: Performed By: #### Jessika HUERTAS, BMP #### [address] [place] [phone] Mail Processing Equipment Mechanic: Joseph Jewell MD #### LIPR #### [address] [phone] Mail Processing Equipment Mechanic: Memo Vega MD NRBC Automated 0.0 per 100 WBC Normal 0.0 [facility] Comment on above: Performed By: #### C BC, BMP #### [address] [place] [address] [employer] Processing Equipment Mechanic: Joseph Jewell MD #### LIPR #### [address] [phone] Mail Processing Equipment Mechanic: Memo Vega MD Platelet Count See Reflexed IPF Result Normal [address] [place] [address] Comment on above: Performed By: #### C BC, BMP #### [facility] [address] [place] [address] Mail Processing Equipment Mechanic: Joseph Jewell MD #### LIPR #### [address] [address] Mail Processing Equipment Mechanic: Memo Vega MD Platelet, Fluoresc. 96 k/uL Low 138-453 [facility] Comment on above: Result Comment: RUN REPEATED Performed By: #### C BC, BMP #### [facility] [address] [place] [phone] Mail Processing Equipment Mechanic: Joseph Jewell MD #### LIPR #### [address] [address] Mail Processing Equipment Mechanic: Memo Vega MD PLT, Immature Fract. 1.9 % Normal 1.1-10.3 [facility] Comment on above: Performed By: #### C BC, BMP #### [facility] [address] [place] [address] Mail Processing Equipment Mechanic: Joseph Jewell MD #### LIPR #### [address] [address] Mail Processing Equipment Mechanic: Memo Vega MD RBC (Bld) [#/Vol] 4.46 10*6/uL Normal 3.95-5.11 [facility] Comment on above: Performed By: #### C BC, BMP #### [facility] [address] [place] [address] Mail Processing Equipment Mechanic: Joseph Jewell MD #### LIPR #### [address] [phone] Mail Processing Equipment Mechanic: Memo Vega MD WBC (Bld) [#/Vol] 5.4 10*3/uL Normal 3.5-11.3 [facility] Comment on above: Performed By: #### C ALEKSANDAR, BMP #### [facility] [address] [place] [address] Mail Processing Equipment Mechanic: Joseph Jewell MD #### LIPR #### [facility] [address] [place], [place] [phone] Mail Processing Equipment Mechanic: Memo Vega MD Lipid Panelon 03-09-2025 Cholesterol [Mass/Vol] 121 mg/dL 0 - 1 99 mg/dL [facility] Comment on above: Cholesterol Guidelines: <200 Desirable 200-240 Borderline >240 Undesirable Cholesterol in HDL [Mass/Vol] 27 mg/dL Low 40 - PINF mg/dL [facility] Comment on above: HDL Guidelines: <40 Undesirable 40-59 Borderline >59 Desirable Cholesterol in LDL [Mass/Vol] 67 mg/dL 0 - 100 mg/dL [facility] Comment on above: LDL Guidelines: <100 Desirable 100-129 Near to/above Desirable 130-159 Borderline >159 Undesirable Direct (measured) LDL and calculated LDL are not interchangeable tests. Cholesterol in VLDL [Mass/Vol] 27 mg/dL 1 - 30 mg/dL [facility] Cholesterol.total/Judith sterol in HDL [Mass ratio] 4.5 {ratio} NINF - 5.0 [facility] Interpretation and review of laboratory results Abnormal [facility] Triglyceride [Mass/Vol] 135 mg/dL NINF - 150 mg/dL [facility] Comment on above: Triglyceride Guidelines: <150 Desirable 150-199 Borderline 200-499 High >499 Very high Based on AHA Guidelines for fasting triglyceride, April 2012. [facility] Lipid Profileon 03-09-2025 Cholesterol [Mass/Vol] 121 mg/dL Normal 0-199 [facility] Comment on above: Result Comment: Cholesterol Guidelines: <200 Desirable 200-240 Borderline >240 Undesirable Performed By: #### C ALEKSANDAR, BMP #### [facility] [address] [place] [phone] Mail Processing Equipment Mechanic: Joseph Jewell MD #### LIPR #### [facility] [address] [place] [address] Mail Processing Equipment Mechanic: Memo Vega MD Cholesterol in HDL [Mass/Vol] 27 mg/dL Low >40 [facility] Comment on above: Result Comment: HDL Guidelines: <40 Undesirable 40-59 Borderline >59 Desirable Performed By: #### C BC, BMP #### [facility] [address] [place], [place] [phone] Mail Processing Equipment Mechanic: Joseph Jewell MD #### LIPR #### [place] [id number] [place] [address] Mail Processing Equipment Mechanic: Memo Vega MD Cholesterol in LDL [Mass/Vol] 67 mg/dL Normal 0-100 [facility] Comment on above: Result Comment: LDL Guidelines: <100 Desirable 100-129 Near to/above Desirable 130-159 Borderline >159 Undesirable Direct (measured) LDL and calculated LDL are not interchangeable tests. Performed By: #### C BC, BMP #### [facility] [address] [place] [address] [place] [place], [place] [phone] [employer] Processing Equipment Mechanic: Joseph Jewell MD #### LIPR #### [place] [address] [place] [address] Mail Processing Equipment Mechanic: Memo Vega MD Cholesterol in VLDL [Mass/Vol] 27 mg/dL Normal 1-30 [facility] Comment on above: Performed By: #### C BC, BMP #### [facility] [address] [place], [place] [phone] Mail Processing Equipment Mechanic: Joseph Jewell MD #### LIPR #### [place] [address] [place] [address] Mail Processing Equipment Mechanic: Memo Vega MD Cholesterol.total/Judith sterol in HDL [Mass ratio] 4.5 {ratio} Normal <5.0 [facility] Comment on above: Performed By: #### C BC, BMP #### [facility] [address] [place] [address] Mail Processing Equipment Mechanic: Joseph Jewell MD #### LIPR #### [facility] [address] [place], [place] [phone] Mail Processing Equipment Mechanic: Memo Vega MD Triglyceride [Mass/Vol] 135 mg/dL Normal <150 [facility] Comment on above: Result Comment: Triglyceride Guidelines: <150 Desirable 150-199 Borderline 200-499 High >499 Very high Based on AHA Guidelines for fasting triglyceride, April 2012. Performed By: #### C BC, BMP #### [facility] [address] [place] [address] Mail Processing Equipment Mechanic: Joseph Jewell MD #### LIPR #### [facility] [address] [place], [place] [phone] Mail Processing Equipment Mechanic: Memo Vega MD Microscopic Urinalysison Bacteria LM Ql (Urine sed) 3+ Abnormal None [facility] Epithelial cells LM.HPF (Urine sed) [#/Area] 2 TO 5 [facility] Interpretation and review of laboratory results Abnormal [facility] RBC LM.HPF (Urine sed) [#/Area] 0 TO 2 [facility] WBC LM.HPF (Urine sed) [#/Area] 50 TO 100 [facility] Urinalysison 03-09-2025 Bilirubin Ql (U) Negative NEGATIVE [facility] Clarity (U) Clear Clear [facility] Color (U) Yellow Yellow [facility] Glucose Test strip (U) [Mass/Vol] 3+ Abnormal NEGATIVE mg/dL [facility] Hemoglobin Auto test strip Ql (U) Negative NEGATIVE [facility] Interpretation and review of laboratory results Abnormal [facility] Ketones (U) [Mass/Vol] Negative NEGAT SHARMAINE mg/dL [facility] Leukocyte esterase Test strip Ql (U) TRACE Abnormal NEGATIVE [facility] Nitrite Ql (U) Negative NEGATIVE [facility] pH (U) 6.0 [pH] 5.0 - 9.0 [facility] Protein (U) [Mass/Vol] Negative NEGAT SHARMAINE mg/dL [facility] Specific gravity (U) [Rel density] 1.010 1.010 - 1.020 [facility] Urobilinogen Qn (U) Normal 0.0 - 1. 0 EU/dL [facility] Urinalysis, Routineon 2024 Bilirubin, SemiQt,Ur Negative Normal NEG [facility] Comment on above: Performed By: #### U A, UMICAO #### [facility] [address] [place] [address] [place] [address] Mail Processing Equipment Mechanic: Joseph Jewell MD Blood, Urine Negative Normal NEG [facility] Comment on above: Performed By: #### U A, UMICAO #### [facility] [address] [place] [address] [place] [address] Mail Processing Equipment Mechanic: Joseph Jewell MD Clarity (U) Clear Normal CLEAR [facility] Comment on above: Performed By: #### U A, UMICAO #### [facility] [address] [place] [address] [place] [address] Mail Processing Equipment Mechanic: Joseph Jewell MD Color (U) Yellow Normal YEL [facility] Comment on above: Performed By: #### U A, UMICAO #### [facility] [address] [place] [address] Mail Processing Equipment Mechanic: Joseph Jewell MD Glucose Ql (U) 3+ mg/dL Abnormal NEG [facility] Comment on above: Performed By: #### U A, UMICAO #### [facility] [address] [place] [address] [place] [address] Mail Processing Equipment Mechanic: Joseph Jewell MD Ketones Ql (U) Negative Normal NEG [facility] Comment on above: Performed By: #### U A, UMICAO #### [facility] [address] [place] [address] Mail Processing Equipment Mechanic: Joseph Jewell MD Leukocyte esterase Test strip Ql (U) TRACE Abnormal NEG [facility] Comment on above: Performed By: #### U A, UMICAO #### [facility] [address] [place] [address] [place] [address] Mail Processing Equipment Mechanic: Joseph Jewell MD Nitrite,Ur Negative Normal NEG [facility] Comment on above: Performed By: #### U A, UMICAO #### [address] [place] [address] Mail Processing Equipment Mechanic: Joseph Jewell MD PH,Ur 6.0 Normal 5.0-9.0 [facility] Comment on above: Performed By: #### U A, UMICAO #### [address] [place] [address] Mail Processing Equipment Mechanic: Joseph Jewell MD Protein Ql (U) Negative Normal NEG [facility] Comment on above: Performed By: #### U A, UMICAO #### [address] [place] [address] Mail Processing Equipment Mechanic: Joseph Jewell MD Spec. Sells,Ur 1.010 Normal 1.010-1.020 [facility] Comment on above: Performed By: #### U A, UMICAO #### [facility] [address] [place] [address] [place] [address] Mail Processing Equipment Mechanic: Joseph Jewell MD Urobilinogen,Ur Normal Normal 0.0-1.0 [facility] Comment on above: Performed By: #### U A, UMICAO #### [address] [place] [address] Mail Processing Equipment Mechanic: Joseph Jewell MD Urinalysis,Microon 08-20-202 5 Bacteria 3+ Abnormal NONE [facility] Comment on above: Performed By: #### U A, UMICAO #### [facility] [address] [place], [place] [phone] Mail Processing Equipment Mechanic: Joseph Jewell MD Epithelial cells LM Ql (Urine sed) 2 TO 5 Normal 0-25 [facility] Comment on above: Performed By: #### U A, PADMINIO #### [facility] [address] [place], [place] [phone] Mail Processing Equipment Mechanic: Joseph Jewell MD Urine RBC's 0 TO 2 Normal 0-2 [facility] Comment on above: Performed By: #### U Senthil, PADMINIO #### [facility] [address] [place], [place] 0001783 Mail Processing Equipment Mechanic: Joseph Jewell MD Urine WBC's 50 TO 100 Normal 0-5 [facility] Comment on above: Performed By: #### U Senthil, PADMINIO #### [facility] [address] [place], [place] [phone] Mail Processing Equipment Mechanic: Joseph Jewell MD CBC AND AUTO DIFFon 04-13- 24 ABSOLUTE BASOPHIL 0.1 X10E9/L Normal 0.0-0.2 [facility] Comment on above: Performed By: #### C TANYA REDDING, 1989-11 #### [facility] ([id number]) [address] [place] [address] ABSOLUTE NEUTROPHIL 3.4 X10E9/L Normal 1.5-6.6 [facility] Comment on above: Performed By: #### C TANYA REDDING, 1989-11 #### [facility] ([id number]) [address] [place] [address] Basophils/100 WBC (Bld) 1.0 % Normal [facility] Comment on above: Performed By: #### C TANYA REDDING, 1989-11 #### [facility] ([id number]) [address] [place] [address] Eosinophils (Bld) [#/Vol] 0.2 10*3/uL Normal 0.0-0.4 [facility] Comment on above: Performed By: #### Jessika REDDING [facility], 1989-11 #### [facility] ([id number]) [address] [place] [address] Eosinophils/100 WBC (Bld) 3.0 % Normal [facility] Comment on above: Performed By: #### Jessika REDDING [facility], 1989-11 #### [facility] ([id number]) [address] [place] [address] Erythrocyte distribution width (RBC) [Ratio] 16.6 % High 11.5-15.0 [facility] Comment on above: Performed By: #### Jessika REDDING [facility], 1989-11 #### [facility] ([id number]) [address] [place] [address] Hematocrit (Bld) [Volume fraction] 32.8 % Low 35-47 [facility] Comment on above: Performed By: #### Jessika REDDING [facility], 1987-11 #### [facility] ([id number]) [address] [place] [address] Hemoglobin (Bld) [Mass/Vol] 10.9 g/dL Low 11.7-15.5 [facility] Comment on above: Performed By: #### Jessika REDDING [facility], 1987-11 #### [facility] ([id number]) [address] [place] [address] Lymphocytes (Bld) [#/Vol] 1.4 10*3/uL Normal 1.0-3.5 [facility] Comment on above: Performed By: #### Jessika REDDING [facility], 1987-11 #### [facility] ([id number]) [address] [place] [address] Lymphocytes/100 WBC (Bld) 25.7 % Normal [facility] Comment on above: Performed By: #### Jessika REDDING [facility], 1987-11 #### [facility] ([id number]) [address] [place] [address] MCH (RBC) [Entitic mass] 29.4 pg Normal 27-34 [facility] Comment on above: Performed By: #### Jessika REDDING [facility], 1987-11 #### [facility] ([id number]) [address] [place] [address] MCHC (RBC) [Mass/Vol] 33.3 g/dL Normal 32-[address] [facility] Comment on above: Performed By: #### Jessika REDDING CMP, 1989-11 #### [facility] ([id number]) [address] [place] [address] MCV (RBC) [Entitic vol] 89 fL Normal 80-100 [facility] Comment on above: Performed By: #### Jessika REDDING [facility], 1987-11 #### [facility] ([id number]) [address] [place] [address] Monocytes (Bld) [#/Vol] 0.5 10*3/uL Normal 0-0.9 [facility] Comment on above: Performed By: #### Jessika REDDING CMP, 1989-11 #### [facility] ([id number]) [address] [place] [address] Monocytes/100 WBC (Bld) 9.1 % Normal [facility] Comment on above: Performed By: #### Jessika REDDING CMP, 1987-11 #### [facility] ([id number]) [address] [place] [address] Neutrophils/100 WBC (Bld) 61.2 % Normal [facility] Comment on above: Performed By: #### Jessika REDDING CMP, 1987-11 #### [facility] ([id number]) [address] [place] [address] Platelet mean volume (Bld) [Entitic vol] 8.1 fL Normal 7-12 [facility] Comment on above: Performed By: #### Jessika REDDING CMP, 1987-11 #### [facility] ([id number]) [address] [place] [address] Platelets (Bld) [#/Vol] 149 10*3/uL Low 150-450 [facility] Comment on above: Performed By: #### Jessika REDDING [facility], 1987-11 #### [facility] ([id number]) [address] [place] [address] RBC COUNT 3.70 X10E12/L Low 3.80-5.20 [facility] Comment on above: Performed By: #### Jessika REDDING [facility], 1987-11 #### [facility] ([id number]) [address] [place] [address] WBC (Bld) [#/Vol] 5.6 10*3/uL Normal 4.0-11.0 [facility] Comment on above: Performed By: #### Jessika REDDING [facility], 1987-11 #### [facility] ([id number]) [address] [place] [address] COMPREHENSIVE METABOLIC PANE Huber 04-13-2024 Albumin [Mass/Vol] 3.6 g/dL Normal 3.2-5.3 [facility] Comment on above: Performed By: #### Jessika REDDING [facility], 1987-11 #### [facility] ([id number]) [address] [place] [address] ALP [Catalytic activity/Vol] 95 U/L Normal 39-130 [facility] Comment on above: Performed By: #### Jessika REDDING [facility], 1987-11 #### [facility] ([id number]) [address] [place] [address] 80926 ALT [Catalytic activity/Vol] 37 U/L High 0-31 [facility] Comment on above: Performed By: #### Jessika REDDING [facility], 1987-11 #### [facility] ([id number]) [address] [place] [address] 14616 Anion gap [Moles/Vol] 4 mmol/L Low 5-[address] [facility] Comment on above: Performed By: #### Jessika REDDING [facility], 1987-11 #### [facility] ([id number]) [address] [place] [address] 72993 AST [Catalytic activity/Vol] 40 U/L Normal 0-41 [facility] Comment on above: Performed By: #### Jessika REDDING [facility], 1987-11 #### [facility] ([id number]) [address] [place] [address] 76734 Bilirubin [Mass/Vol] 0.6 mg/dL Normal 0.3-1.2 [facility] Comment on above: Performed By: #### Jessika REDDING [facility], 1987-11 #### [facility] ([id number]) [address] [place] [address] 51853 Calcium [Mass/Vol] 9.1 mg/dL Normal 8.5-10.5 [facility] Comment on above: Performed By: #### Jessika REDDING [facility], 1987-11 #### [facility] ([id number]) [address] [place] [address] 46541 Chloride [Moles/Vol] 104 mmol/L Normal 98-109 [facility] Comment on above: Performed By: #### Jessika REDDING [facility], 1987-11 #### [facility] ([id number]) [address] [place] [address] 97427 CO2 [Moles/Vol] 27 mmol/L Normal 22-32 [facility] Comment on above: Performed By: #### C TANYA REDDING, 1989-11 #### [facility] ([id number]) [address] [place] [address] 01757 Creatinine [Mass/Vol] 0.53 mg/dL Normal 0.40-1.[address] [facility] Comment on above: Result Comment: METH OD TRACEABLE TO IDMS STANDARD Performed By: #### C MILADIS [facility], 1987-11 #### [facility] ([id number]) [address] [place] [address] 59128 eGFR (CKD-EPI) NON-RACE DEPENDENT >90 Normal >59 [facility] Comment on above: Result Comment: Reported eGFR is based on the CKD-EPI 2020 equation that does not use a race coefficient. Performed By: #### C TANYA REDDING, 1989-11 #### [facility] ([id number]) [address] [place] [address] 66484 Glucose [Mass/Vol] 108 mg/dL High 65-99 [facility] Comment on above: Performed By: #### C MILADIS [facility], 1987-11 #### [facility] ([id number]) [address] [place] [address] 05863 Potassium [Moles/Vol] 4.1 mmol/L Normal 3.5-5.[address] [facility] Comment on above: Performed By: #### C MILADIS [facility], 1987-11 #### [facility] ([id number]) [address] [place] [address] 41011 Protein [Mass/Vol] 7.5 g/dL Normal 6.0-8.0 [facility] Comment on above: Performed By: #### C TANYA REDDING, 1989-11 #### [facility] ([id number]) [address] [place] [address] 82608 Sodium [Moles/Vol] 135 mmol/L Normal 134-146 [facility] Comment on above: Performed By: #### C TANYA REDDING 1989-11 #### [facility] ([id number]) [address] [place] [address] 96623 Urea nitrogen [Mass/Vol] 24 mg/dL Normal 5-27 [facility] Comment on above: Performed By: #### C TANYA REDDING, 1989-11 #### [facility] ([id number]) [address] [place] [address] 85406 CRP [Mass/Vol]on 04-13-2024 C REACTIVE PROTEIN 0.7 mg/dL Normal 0.000-0.744 [facility] Comment on above: Performed By: #### C TANYA REDDING, , 5643-2 #### [facility] ([id number]) [address] [place] [address] 72803 Lactate (P joy) [Moles/Vol]o n 04-13-2024 LACTATE W/REFLEX 0.8 mmol/L Normal 0.4-2.[address] [facility] Comment on above: Result Comment: Result did not trigger repeat Lactate, re-order if needed. Performed By: #### C TANYA REDDING, , 5643-2 #### [facility] ([id number]) [address] [place] [address] 38000 URINE CULTUREon 04-13-2024 Bacteria identified Cx Nom (U) CULTURE RESULTS <10,000 ORGANISMS/ML NORMAL URO GENITAL PAYTON Normal [facility] Comment on above: Performed By: #### C TANYA REDDING, , 5643-2 #### [facility] ([id number]) [address] [place] [address] 94785 URN MACROSCOPIC NURon 2023 BILIRUBIN JOSAFAT Negative Normal NEG [facility] Comment on above: Performed By: #### N UM #### [facility] ([id number]) [address] [place] [address] 91774 BLOOD/HGB JOSAFAT Small Abnormal NEG [facility] Comment on above: Performed By: #### N UM #### [facility] ([id number]) [address] [place] [address] 80857 GLUCOSE JOSAFAT Negative Normal NEG [facility] Comment on above: Performed By: #### N UM #### [facility] ([id number]) [address] [place] [address] [place] [address] KETONES JOSAFAT Negative Normal NEG [facility] Comment on above: Performed By: #### N UM #### [facility] ([id number]) [address] [place] [address] 00074 LEUKOCYTE ESTERASE JOSAFAT Negative Normal NEG [facility] Comment on above: Performed By: #### N UM #### [facility] ([id number]) [address] [place] [address] 48216 NITRITE JOSAFAT Negative Normal NEG [facility] Comment on above: Performed By: #### N UM #### [facility] ([id number]) [address] [place] [address] 53477 PH JOSAFAT 6.0 Normal 5.0-8.5 [facility] Comment on above: Performed By: #### N UM #### [facility] ([id number]) [address] [place] [address] 42424 PROTEIN JOSAFAT Negative Normal NEG [facility] Comment on above: Performed By: #### N UM #### [facility] ([id number]) [address] [place] [address] [place] [address] SPECIFIC GRAVITY JOSAFAT 1.025 Normal 1.003-1.[address] [facility] Comment on above: Performed By: #### N UM #### [facility] ([id number]) [address] [place] [address] [place] [address] UROBILINOGEN JOSAFAT 2.0 eu/dL High <1.[address] [facility] Comment on above: Performed By: #### N UM #### [facility] ([id number]) [address] [place] [address], [place] [address] XR FOOT RT MIN 3 VWSon 04-13 XR FOOT RT MIN 3 VWS XR FOOT RT MIN 3 VW S XR FOOT RT MIN 3 VWS HISTORY: Toe wound, pain COMPARISON: 07/02/2023 FINDINGS: No acute fracture or dislocation. Comparatively exaggerated flexion at the fifth metatarsophalangeal joint appears similar to prior examination. New area of sclerosis of the second metacarpal neck. No cortical fragmentation or osseous erosion of the first digit. Inferior calcaneal enthesophytosis. IMPRESSION: * No cortical fragmentation or osseous erosion of the first digit to suggest osteomyelitis. * Area of sclerosis at the second metacarpal neck is new from prior examination, possible subacute healing stress fracture. Approved by Resident: Fredy Carrizales MD on 04/13/2024 8:37 PM I, Óscar George MD have personally reviewed the image(s) and agree with and/or edited the report Finalized by Óscar George MD on 04/13/2024 8:54 PM Normal [facility] Celiac Disease Panelon 12-29 Gliadin Deam Pep IgA 6.2 U/mL Normal <7.0 [facility] Comment on above: Result Comment: CELIAC INTERPRETATION <7.0 Negative 7.0-10.0 Equivocal >10.0 Positive units: U/mL Performed By: #### F EBC, CELP, B12FOL #### [facility] [address] [place] [address] 43[address] Mail Processing Equipment Mechanic: Memo Vega MD Tiss Transglutam IgA 1.5 U/mL Normal <7.0 [facility] Comment on above: Result Comment: CELIAC INTERPRETATION <7.0 Negative 7.0-10.0 Equivocal >10.0 Positive units: U/mL Performed By: #### F EBC, CELP, B12FOL #### [facility] [address] [place] [address] [id number] [employer] Processing Equipment Mechanic: Memo Vega MD Gliadin Deam Pep IgG 1.0 U/mL Normal <7.0 [facility] Comment on above: Result Comment: CELIAC INTERPRETATION <7.0 Negative 7.0-10.0 Equivocal >10.0 Positive units: U/mL Performed By: #### F EBC, CELP, B12FOL #### [address] [address] Mail Processing Equipment Mechanic: Memo Vega MD B12/Folate Panelon Cobalamin (Vitamin B12) [Mass/Vol] 483 pg/mL Normal 232-1245 [facility] Comment on above: Performed By: #### F EBC, CELP, B12FOL #### [facility] [address] [place] [address] 49835 [employer] Processing Equipment Mechanic: Memo Vega MD Folic Acid 5.5 ng/mL Normal 4.8-24.2 [facility] Comment on above: Performed By: #### F EBC, CELP, B12FOL #### [facility] [address] [place] [address] 26346 [employer] Processing Equipment Mechanic: Memo Vega MD Celiac Disease Panelon 12-26 IgA [Mass/Vol] 603 mg/dL High 70-400 [facility] Comment on above: Performed By: #### F EBC, CELP, B12FOL #### [facility] [address] [place] [address] 04039 [employer] Processing Equipment Mechanic: Memo Vega MD Iron Binding Cap.on 12-27-19 24 % Fe Saturation 5 % Low 20-55 [facility] Comment on above: Performed By: #### F EBC, CELP, B12FOL #### [facility] [address] [place] [address] 53277 [employer] Processing Equipment Mechanic: Memo Vega MD Iron [Mass/Vol] 19 ug/dL Low 37-145 [facility] Comment on above: Performed By: #### F EBC, CELP, B12FOL #### [facility] [address] [place] [address] [employer] Processing Equipment Mechanic: Memo Vega MD Total Fe Binding Cap 380 ug/dL Normal 250-450 [facility] Comment on above: Performed By: #### F EBC, CELP, B12FOL #### [facility] [address] [place] [address] [employer] Processing Equipment Mechanic: Memo Vega MD Unbound Fe Bind Cap 361 ug/dL High 112-347 [facility] Comment on above: Performed By: #### F EBC, CELP, B12FOL #### [facility] [address] [place] [address] Mail Processing Equipment Mechanic: Memo Vega MD CBC AND AUTO DIFFon 12-24-19 24 ABSOLUTE BASOPHIL 0.1 X10E9/L Normal 0.0-0.2 [facility] Comment on above: Performed By: #### C BCA, CMP, , 43-2 #### [facility] ([id number]) [address] [place] [address] 30825 ABSOLUTE NEUTROPHIL 3.5 X10E9/L Normal 1.5-6.6 [facility] Comment on above: Performed By: #### C BCA, CMP, , 43-2 #### [facility] ([id number]) [address] [place] [address] 72742 Basophils/100 WBC (Bld) 1.5 % Normal [facility] Comment on above: Performed By: #### C BCA, CMP, , 43-2 #### [facility] ([id number]) [address] [place] [address] 10284 Eosinophils (Bld) [#/Vol] 0.2 10*3/uL Normal 0.0-0.4 [facility] Comment on above: Performed By: #### C BCA, CMP, 54072-[address]-08 #### [facility] ([id number]) [address] [place] [address] 10423 Eosinophils/100 WBC (Bld) 2.8 % Normal [facility] Comment on above: Performed By: #### Jessika REDDING CMP, 5642-08 #### [facility] ([id number]) [address] [place] [address] 06419 Erythrocyte distribution width (RBC) [Ratio] 17.9 % High 11.5-15.0 [facility] Comment on above: Performed By: #### Jessika REDDING [facility], , 5642-08 #### [facility] ([id number]) [address] [place] [address] 28328 Hematocrit (Bld) [Volume fraction] 25.5 % Low 35-47 [facility] Comment on above: Performed By: #### Jessika REDDING [facility], , 5642-08 #### [facility] ([id number]) [address] [place] [address] 19681 Hemoglobin (Bld) [Mass/Vol] 8.2 g/dL Low 11.7-15.5 [facility] Comment on above: Performed By: #### Jessika REDDING CMP, 5642-08 #### [facility] ([id number]) [address] [place] [address] 96610 Lymphocytes (Bld) [#/Vol] 1.4 10*3/uL Normal 1.0-3.5 [facility] Comment on above: Performed By: #### Jessika REDDING CMP, 5642- #### [facility] ([id number]) [address] [place] [address] 74929 Lymphocytes/100 WBC (Bld) 24.2 % Normal [facility] Comment on above: Performed By: #### Jessika REDDING CMP, 5642- #### [facility] ([id number]) [address] [place] [address] 30291 MCH (RBC) [Entitic mass] 25.5 pg Low 27-34 [facility] Comment on above: Performed By: #### Jessika REDDING, CMP, , 5642- #### [facility] ([id number]) [address] [place] [address] 68578 MCHC (RBC) [Mass/Vol] 32.2 g/dL Normal 32-[address] [facility] Comment on above: Performed By: #### Jessika REDDING [facility], , 5642- #### [facility] ([id number]) [address] [place] [address] 18493 MCV (RBC) [Entitic vol] 79 fL Low 80-100 [facility] Comment on above: Performed By: #### Jessika REDDING, CMP, , 5642- #### [facility] ([id number]) [address] [place] [address] 32374 Monocytes (Bld) [#/Vol] 0.6 10*3/uL Normal 0-0.9 [facility] Comment on above: Performed By: #### Jessika REDDIGN CMP, 5642- #### [facility] ([id number]) [address] [place] [address] 86851 Monocytes/100 WBC (Bld) 10.2 % Normal [facility] Comment on above: Performed By: #### Jessika REDDING, CMP, 5642- #### [facility] ([id number]) [address] [place] [address] 27065 Neutrophils/100 WBC (Bld) 61.3 % Normal [facility] Comment on above: Performed By: #### Jessika BCA, CMP, , 5642-2 #### [facility] ([id number]) [address] [place] [address] 36358 Platelet mean volume (Bld) [Entitic vol] 7.2 fL Normal 7-12 [facility] Comment on above: Performed By: #### Jessika REDDING CMP, , 5643-2 #### [facility] ([id number]) [address] [place] [address] 57066 Platelets (Bld) [#/Vol] 204 10*3/uL Normal 150-450 [facility] Comment on above: Performed By: #### Jessika REDDING CMP, , 5642-2 #### [facility] ([id number]) [address] [place] [address] 41808 RBC COUNT 3.22 X10E12/L Low 3.80-5.20 [facility] Comment on above: Performed By: #### Jessika REDDING, CMP, , 56-2 #### [facility] ([id number]) [address] [place] [address] 41001 WBC (Bld) [#/Vol] 5.7 10*3/uL Normal 4.0-11.0 [facility] Comment on above: Performed By: #### Jessika REDDING CMP, , 5643-2 #### [facility] ([id number]) [address] [place] [address] 40553 COMPREHENSIVE METABOLIC PANE [place] 12-24-2023 Albumin [Mass/Vol] 3.4 g/dL Normal 3.2-5.3 [facility] Comment on above: Performed By: #### Jessika REDDING, CMP, , 5643-2 #### [facility] ([id number]) [address] [place] [address] 19098 ALP [Catalytic activity/Vol] 94 U/L Normal 39-130 [facility] Comment on above: Performed By: #### C BCA, CMP, , 43-2 #### [facility] ([id number]) [address] [place] [address] 35435 ALT [Catalytic activity/Vol] 19 U/L Normal 0-31 [facility] Comment on above: Performed By: #### C BCA, CMP, , 43-2 #### [facility] ([id number]) [address] [place] [address] 06884 Anion gap [Moles/Vol] 8 mmol/L Normal 5-[address] [facility] Comment on above: Performed By: #### C BCA, CMP, , 5642-2 #### [facility] ([id number]) [address] [place] [address] 96268 AST [Catalytic activity/Vol] 40 U/L Normal 0-41 [facility] Comment on above: Performed By: #### C BCA, CMP, , 43-2 #### [facility] ([id number]) [address] [place] [address] 79988 Bilirubin [Mass/Vol] 1.0 mg/dL Normal 0.3-1.2 [facility] Comment on above: Performed By: #### C BCA, CMP, , 43-2 #### [facility] ([id number]) [address] [place] [address] 97743 Calcium [Mass/Vol] 8.7 mg/dL Normal 8.5-10.5 [facility] Comment on above: Performed By: #### C BCA, CMP, , 43-2 #### [facility] ([id number]) [address] [place] [address] 01138 Chloride [Moles/Vol] 105 mmol/L Normal 98-109 [facility] Comment on above: Performed By: #### C BCA, CMP, , 5642-2 #### [facility] ([id number]) [address] [place] [address] 65315 CO2 [Moles/Vol] 21 mmol/L Low 22-32 [facility] Comment on above: Performed By: #### C MILADIS [facility], , 5642- #### [facility] ([id number]) [address] [place] [address] 89282 Creatinine [Mass/Vol] 0.54 mg/dL Normal 0.40-1.[address] [facility] Comment on above: Result Comment: METH OD TRACEABLE TO IDMS STANDARD Performed By: #### C MILADIS [facility], , 5642-08 #### [facility] ([id number]) [address] [place] [address] 74823 eGFR (CKD-EPI) NON-RACE DEPENDENT >90 Normal >59 [facility] Comment on above: Result Comment: Reported eGFR is based on the CKD-EPI 2020 equation that does not use a race coefficient. Performed By: #### C MILADIS [facility], , 5642- #### [facility] ([id number]) [address] [place] [address] 42619 Glucose [Mass/Vol] 116 mg/dL High 65-99 [facility] Comment on above: Performed By: #### C MILADIS [facility], , 5642-08 #### [facility] ([id number]) [address] [place] [address] 56936 Potassium [Moles/Vol] 3.9 mmol/L Normal 3.5-5.[address] [facility] Comment on above: Performed By: #### C TANYA REDDING, , 5642-2 #### [facility] ([id number]) [address] [place] [address] 30698 Protein [Mass/Vol] 8.0 g/dL Normal 6.0-8.0 [facility] Comment on above: Performed By: #### C TANYA REDDING, , 5643-2 #### [facility] ([id number]) [address] [place], [place] [address] Sodium [Moles/Vol] 134 mmol/L Normal 134-146 [facility] Comment on above: Performed By: #### Jessika ERDDING CMP, , 5642-2 #### [facility] ([id number]) [address] [place], [place] [address] Urea nitrogen [Mass/Vol] 10 mg/dL Normal 5-27 [facility] Comment on above: Performed By: #### Jessika REDDING CMP, , 5643-2 #### [facility] ([id number]) [address] [place] [address] 64795 Ethanol [Mass/Vol]on 024 ETHANOL 0.10 g/dL High 0.00-0.08 [facility] Comment on above: Result Comment: This report is intended for use in clinical monitoring or management of patients. Performed By: #### 5 643-2 #### [facility] ([id number]) [address] [place], [place] [address] ETHANOL 0.19 g/dL High 0.00-0.08 [facility] Comment on above: Result Comment: This report is intended for use in clinical monitoring or management of patients. Performed By: #### C MILADIS CMP, , 5643-2 #### [facility] ([id number]) [address] [place], [place] [address] MAGNESIUMon 12-24-2023 Magnesium [Mass/Vol] 1.7 mg/dL Low 1.8-2.6 [facility] Comment on above: Performed By: #### Jessika REDDING CMP, , 5643-2 #### [facility] ([id number]) [address] [place] [address] 04693 URINE CULTUREon 12-24-2023 Bacteria identified Cx Nom (U) CULTURE RESULTS >100,000 ORGANISMS/ML NORMAL UROGENITAL PAYTON Normal [facility] Comment on above: Performed By: #### 6 30-4 #### [facility] ([id number]) [address] [place] [address], [address] [place] [address] URN MACROSCOPIC NURon 2023 BILIRUBIN JOSAFAT Negative Normal NEG [facility] Comment on above: Performed By: #### N UM #### [facility] ([id number]) [address] [place] [address] 95555 BLOOD/HGB JOSAFAT Trace Abnormal NEG [facility] Comment on above: Performed By: #### N UM #### [facility] ([id number]) [address] [place] [address] [place] [address] GLUCOSE JOSAFAT Negative Normal NEG [facility] Comment on above: Performed By: #### N UM #### [facility] ([id number]) [address] [place] [address] 23052 KETONES JOSAFTA Negative Normal NEG [facility] Comment on above: Performed By: #### N UM #### [facility] ([id number]) [address] [place] [address] 61481 LEUKOCYTE ESTERASE JOSAFAT MODERATE Abnormal NEG Pr [facility] Comment on above: Performed By: #### N UM #### [facility] ([id number]) [address] [place] [address] 49033 NITRITE JOSAFAT Negative Normal NEG [facility] Comment on above: Performed By: #### N UM #### [facility] ([id number]) [address] [place] [id number] PH JOSAFAT 5.5 Normal 5.0-8.5 [facility] Comment on above: Performed By: #### N UM #### [facility] ([id number]) [address] [place] [address] [id number] PROTEIN JOSAFAT Negative Normal NEG [facility] Comment on above: Performed By: #### N UM #### [facility] ([id number]) [address] [place] [id number] SPECIFIC GRAVITY JOSAFAT 1.015 Normal 1.003-1.035 Pro [facility] Comment on above: Performed By: #### N UM #### [facility] ([id number]) [address] [place] [id number] UROBILINOGEN JOSAFAT 0.2 eu/dL Normal <1.[address] [facility] Comment on above: Performed By: #### N UM #### [facility] ([id number]) [address] [place] [id number] DRUG ABUSE SCREENon 12-14-19 24 AMPHETAMINE/METHAMPH Negative Normal NEGATIVE [facility] Comment on above: Performed By: #### B MP, HSTRP, CBCWD, ETOHS, OSMOL, ANION, EGFR1, TSH3, LIPAS, MG, NTBNP, HEPPA #### [facility] [address] [place] [address] BARBITURATE Negative Normal NEGATIVE [facility] Comment on above: Performed By: #### B MP, HSTRP, CBCWD, ETOHS, OSMOL, ANION, EGFR1, TSH3, LIPAS, MG, NTBNP, HEPPA #### [facility] [address] [place] [address] Benzodiazepines Ql (U) Negative Normal NEGATIVE [facility] Comment on above: Performed By: #### B MP, HSTRP, CBCWD, ETOHS, OSMOL, ANION, EGFR1, TSH3, LIPAS, MG, NTBNP, HEPPA #### [facility] [address] [place] [address] Cannabinoids Screen Ql (U) Negative Normal NEGATIVE [facility] Comment on above: Performed By: #### B MP, HSTRP, CBCWD, ETOHS, OSMOL, ANION, EGFR1, TSH3, LIPAS, MG, NTBNP, HEPPA #### [place] [address] COCAINE METABOLITE Negative Normal NEGATIVE [facility] Comment on above: Performed By: #### B MP, HSTRP, CBCWD, ETOHS, OSMOL, ANION, EGFR1, TSH3, LIPAS, MG, NTBNP, HEPPA #### [place] [address] FENTANYL Negative Normal NEGATIVE [facility] Comment on above: Result Comment: A N egative result for a drug abuse screen test indicates that the drug concentration is below the following cutoffs: Amphetamine/Methamphetamine 1000 ng/ml Barbiturate 200 ng/ml Benzodiazapine 200 ng/ml Cannabinoids 50 ng/ml Cocaine Metabolite 300 ng/ml Opiates 300 ng/ml Oxycodone 100 ng/ml Phencyclidine 25 ng/ml Fentanyl 5 ng/ml A Positive result for a drug abuse screen test should be considered presumptive positive until/unless confirmed by another method. (Additional request) Quantitative values from a reference laboratory are available upon additional request. These results are for medical use only. Performed By: #### B MP, HSTRP, CBCWD, ETOHS, OSMOL, ANION, EGFR1, TSH3, LIPAS, MG, NTBNP, HEPPA #### [place] [address] Opiates Ql (U) Negative Normal NEGATIVE [facility] Comment on above: Performed By: #### B MP, HSTRP, CBCWD, ETOHS, OSMOL, ANION, EGFR1, TSH3, LIPAS, MG, NTBNP, HEPPA #### [place] [address] OXYCODONE Negative Normal NEGATIVE [facility] Comment on above: Performed By: #### B MP, HSTRP, CBCWD, ETOHS, OSMOL, ANION, EGFR1, TSH3, LIPAS, MG, NTBNP, HEPPA #### [place] [address] Phencyclidine Ql (U) Negative Normal NEGATIVE [facility] Comment on above: Performed By: #### B MP, HSTRP, CBCWD, ETOHS, OSMOL, ANION, EGFR1, TSH3, LIPAS, MG, NTBNP, HEPPA #### [place] [address] HIGH SENSTIVITY TROPONINon 0 12-14-2023 HIGH SENSTIVITY TROPONIN 25 ng/L High 0-12 [facility] Comment on above: Result Comment: The high-sensitivity troponin T result should not be compared with other troponin methodologies. Rising or falling high-sensitivity troponin T is significant if >= 6. Performed By: #### H STRP #### [place] [address] Troponinon 12-14-2023 Interpretation and review of laboratory results Abnormal [facility] Troponin, High Sensitivity 25 ng/L High 0 - 12 ng/L [facility] Comment on above: The high-sensitivity troponin T result should not be compared with other troponin methodologies. Rising or falling high-sensitivity troponin T is significant if >= 6. Performed at [address] URINE REFLEX C + Son 024 Bilirubin Ql (U) Negative Normal NEGATIVE [facility] Comment on above: Performed By: #### B MP, HSTRP, CBCWD, ETOHS, OSMOL, ANION, EGFR1, TSH3, LIPAS, MG, NTBNP, HEPPA #### [place] [address] CHARACTER CLEAR Normal CLEAR-SL CLOUD [facility] Comment on above: Performed By: #### B MP, HSTRP, CBCWD, ETOHS, OSMOL, ANION, EGFR1, TSH3, LIPAS, MG, NTBNP, HEPPA #### [place] [address] Color (U) YELLOW Normal STRAW-YELLO W [facility] Comment on above: Performed By: #### B MP, HSTRP, CBCWD, ETOHS, OSMOL, ANION, EGFR1, TSH3, LIPAS, MG, NTBNP, HEPPA #### [facility] [address] [place] [address] Glucose Ql (U) Negative Normal NEGATIVE [facility] Comment on above: Performed By: #### B MP, HSTRP, CBCWD, ETOHS, OSMOL, ANION, EGFR1, TSH3, LIPAS, MG, NTBNP, HEPPA #### [address] [address] Hemoglobin Ql (U) Negative Normal NEGATIVE [facility] Comment on above: Performed By: #### B MP, HSTRP, CBCWD, ETOHS, OSMOL, ANION, EGFR1, TSH3, LIPAS, MG, NTBNP, HEPPA #### [place] [address] Ketones Ql (U) Negative Normal NEGATIVE [facility] Comment on above: Performed By: #### B MP, HSTRP, CBCWD, ETOHS, OSMOL, ANION, EGFR1, TSH3, LIPAS, MG, NTBNP, HEPPA #### [address] [address] LEUKOCYTES Negative Normal NEGATIVE [facility] Comment on above: Performed By: #### B MP, HSTRP, CBCWD, ETOHS, OSMOL, ANION, EGFR1, TSH3, LIPAS, MG, NTBNP, HEPPA #### [address] [address] Nitrite Ql (U) Negative Normal NEGATIVE [facility] Comment on above: Performed By: #### B MP, HSTRP, CBCWD, ETOHS, OSMOL, ANION, EGFR1, TSH3, LIPAS, MG, NTBNP, HEPPA #### [address] [address] pH (U) 6.0 [pH] Normal 5.0 - 9.0 [facility] Comment on above: Performed By: #### B MP, HSTRP, CBCWD, ETOHS, OSMOL, ANION, EGFR1, TSH3, LIPAS, MG, NTBNP, HEPPA #### [address] [address] Protein Ql (U) Negative Normal NEGATIVE [facility] Comment on above: Performed By: #### B MP, HSTRP, CBCWD, ETOHS, OSMOL, ANION, EGFR1, TSH3, LIPAS, MG, NTBNP, HEPPA #### [place] [address] Specific gravity (U) [Rel density] 1.015 Normal 1.002-1.030 [facility] Comment on above: Performed By: #### B MP, HSTRP, CBCWD, ETOHS, OSMOL, ANION, EGFR1, TSH3, LIPAS, MG, NTBNP, HEPPA #### [place] [address] Urobilinogen Qn (U) 0.2 {Garrison'U}/dL Normal 0.0 - 1. 0 [facility] Comment on above: Performed By: #### B MP, HSTRP, CBCWD, ETOHS, OSMOL, ANION, EGFR1, TSH3, LIPAS, MG, NTBNP, HEPPA #### [place] [address] ANION GAPon 12-13-2023 Anion gap [Moles/Vol] 11.0 mmol/L Normal 8.0-16.0 [facility] Comment on above: Result Comment: ANIO N GAP = Sodium -(Chloride + CO2) Performed By: #### B MP, HSTRP, CBCWD, ETOHS, OSMOL, ANION, EGFR1, TSH3, LIPAS, MG, NTBNP, HEPPA #### [place] [address] Anion Gapon 12-13-2023 Anion gap [Moles/Vol] 11.0 mmol/L 8.0 - 16.0 meq/L [facility] Comment on above: ANION GAP = Sodium - (Chloride + CO2) Performed at [facility] [address] [place] [address] BASIC METABOL PANELon 2023 Calcium [Mass/Vol] 9.6 mg/dL Normal 8.5-10.5 [facility] Comment on above: Performed By: #### B MP, HSTRP, CBCWD, ETOHS, OSMOL, ANION, EGFR1, TSH3, LIPAS, MG, NTBNP, HEPPA #### [address] [address] Chloride [Moles/Vol] 101 mmol/L Normal 98-111 [facility] Comment on above: Performed By: #### B MP, HSTRP, CBCWD, ETOHS, OSMOL, ANION, EGFR1, TSH3, LIPAS, MG, NTBNP, HEPPA #### [address] [address] CO2 [Moles/Vol] 20 mmol/L Low 23-33 [facility] Comment on above: Performed By: #### B MP, HSTRP, CBCWD, ETOHS, OSMOL, ANION, EGFR1, TSH3, LIPAS, MG, NTBNP, HEPPA #### [address] [address] Creatinine [Mass/Vol] 0.6 mg/dL Normal 0.4-1.2 [facility] Comment on above: Performed By: #### B MP, HSTRP, CBCWD, ETOHS, OSMOL, ANION, EGFR1, TSH3, LIPAS, MG, NTBNP, HEPPA #### [address] [address] Glucose [Mass/Vol] 103 mg/dL Normal 70-108 [facility] Comment on above: Performed By: #### B MP, HSTRP, CBCWD, ETOHS, OSMOL, ANION, EGFR1, TSH3, LIPAS, MG, NTBNP, HEPPA #### [address] [address] Potassium [Moles/Vol] 4.5 mmol/L Normal 3.5-5.2 [facility] Comment on above: Performed By: #### B MP, HSTRP, CBCWD, ETOHS, OSMOL, ANION, EGFR1, TSH3, LIPAS, MG, NTBNP, HEPPA #### [address] [address] Sodium [Moles/Vol] 132 mmol/L Low 135-145 [facility] Comment on above: Performed By: #### B MP, HSTRP, CBCWD, ETOHS, OSMOL, ANION, EGFR1, TSH3, LIPAS, MG, NTBNP, HEPPA #### [facility] [address] [place] [address] Urea nitrogen [Mass/Vol] 13 mg/dL Normal 7-22 [facility] Comment on above: Performed By: #### B MP, HSTRP, CBCWD, ETOHS, OSMOL, ANION, EGFR1, TSH3, LIPAS, MG, NTBNP, HEPPA #### [facility] [address] [place] [address] Basic metabolic 2000 panelon 12-13-2023 Calcium [Mass/Vol] 9.6 mg/dL 8.5 - 10. 5 mg/dL [facility] Comment on above: Performed at [facility] [employer] [facility] [address] [place] [address] Chloride [Moles/Vol] 101 mmol/L 98 - 11 1 meq/L [facility] [employer] CO2 [Moles/Vol] 20 mmol/L Low 23 - 33 meq/L [facility] Creatinine [Mass/Vol] 0.6 mg/dL 0.4 - 1.2 mg/dL [facility] Glucose [Mass/Vol] 103 mg/dL 70 - 108 mg/dL [facility] Potassium [Moles/Vol] 4.5 mmol/L 3.5 - 5.2 meq/L [facility] Sodium [Moles/Vol] 132 mmol/L Low 135 - 145 meq/L [facility] Urea nitrogen [Mass/Vol] 13 mg/dL 7 - 22 mg/dL [facility] Brain Natriuretic Peptideon 12-13-2023 Natriuretic peptide.B prohormone N-Terminal IA [Mass/Vol] 182.9 pg/mL High 0.0 - 124.0 pg/mL [facility] Comment on above: Performed at [facility] [employer] [facility] [address] [place] [address] CALCULATED OSMOLALITYon 11-19 Osmolality [Osmolality] 264.9 mosm/kg Low 275.0-300 .0 [facility] Comment on above: Performed By: #### B MP, HSTRP, CBCWD, ETOHS, OSMOL, ANION, EGFR1, TSH3, LIPAS, MG, NTBNP, HEPPA #### [place] [address] CBC WITH DIFFERENTIALon 11-19 ABS BASOPHILS 0.0 thou/mm3 Normal 0.0-0.1 [facility] Comment on above: Performed By: #### B MP, HSTRP, CBCWD, ETOHS, OSMOL, ANION, EGFR1, TSH3, LIPAS, MG, NTBNP, HEPPA #### [place] [address] ABS EOSINOPHILS 0.1 thou/mm3 Normal 0.0-0.4 [facility] Comment on above: Performed By: #### B MP, HSTRP, CBCWD, ETOHS, OSMOL, ANION, EGFR1, TSH3, LIPAS, MG, NTBNP, HEPPA #### [place] [address] ABS IMMATURE GRANS (IG) 0.04 thou/mm3 Normal 0.00-0.07 [facility] Comment on above: Performed By: #### B MP, HSTRP, CBCWD, ETOHS, OSMOL, ANION, EGFR1, TSH3, LIPAS, MG, NTBNP, HEPPA #### [place] [address] ABS LYMPHOCYTES 1.1 thou/mm3 Normal 1.0-4.8 [facility] Comment on above: Performed By: #### B MP, HSTRP, CBCWD, ETOHS, OSMOL, ANION, EGFR1, TSH3, LIPAS, MG, NTBNP, HEPPA #### [place] [address] ABS MONOCYTES 0.8 thou/mm3 Normal 0.4-1.3 [facility] Comment on above: Performed By: #### B MP, HSTRP, CBCWD, ETOHS, OSMOL, ANION, EGFR1, TSH3, LIPAS, MG, NTBNP, HEPPA #### [address] [address] ABS NEUTROPHILS 3.9 thou/mm3 Normal 1.8-7.7 [facility] Comment on above: Performed By: #### B MP, HSTRP, CBCWD, ETOHS, OSMOL, ANION, EGFR1, TSH3, LIPAS, MG, NTBNP, HEPPA #### [place] [address] Basophils/100 WBC (Bld) 0.7 % Normal [facility] Comment on above: Performed By: #### B MP, HSTRP, CBCWD, ETOHS, OSMOL, ANION, EGFR1, TSH3, LIPAS, MG, NTBNP, HEPPA #### [place] [address] Eosinophils/100 WBC (Bld) 1.5 % Normal [facility] Comment on above: Performed By: #### B MP, HSTRP, CBCWD, ETOHS, OSMOL, ANION, EGFR1, TSH3, LIPAS, MG, NTBNP, HEPPA #### [place] [address] Erythrocyte distribution width (RBC) [Ratio] 16.6 % High 11.5-14.5 [facility] Comment on above: Performed By: #### B MP, HSTRP, CBCWD, ETOHS, OSMOL, ANION, EGFR1, TSH3, LIPAS, MG, NTBNP, HEPPA #### [place] [address] Hematocrit (Bld) [Volume fraction] 26.3 % Low 37.0-47.0 [facility] Comment on above: Performed By: #### B MP, HSTRP, CBCWD, ETOHS, OSMOL, ANION, EGFR1, TSH3, LIPAS, MG, NTBNP, HEPPA #### [place] [address] Hemoglobin (Bld) [Mass/Vol] 7.7 g/dL Low 12.0-16.0 [facility] Comment on above: Performed By: #### B MP, HSTRP, CBCWD, ETOHS, OSMOL, ANION, EGFR1, TSH3, LIPAS, MG, NTBNP, HEPPA #### [place] [address] IMMATURE GRANS (IG) 0.7 % Normal [facility] Comment on above: Performed By: #### B MP, HSTRP, CBCWD, ETOHS, OSMOL, ANION, EGFR1, TSH3, LIPAS, MG, NTBNP, HEPPA #### [place] [address] Lymphocytes/100 WBC (Bld) 18.6 % Normal [facility] Comment on above: Performed By: #### B MP, HSTRP, CBCWD, ETOHS, OSMOL, ANION, EGFR1, TSH3, LIPAS, MG, NTBNP, HEPPA #### [place] [address] MCH (RBC) [Entitic mass] 25.6 pg Low 26.0-33.0 [facility] Comment on above: Performed By: #### B MP, HSTRP, CBCWD, ETOHS, OSMOL, ANION, EGFR1, TSH3, LIPAS, MG, NTBNP, HEPPA #### [place] [address] MCHC (RBC) [Mass/Vol] 29.3 g/dL Low 32.2-35.5 [facility] Comment on above: Performed By: #### B MP, HSTRP, CBCWD, ETOHS, OSMOL, ANION, EGFR1, TSH3, LIPAS, MG, NTBNP, HEPPA #### [place] [address] MCV (RBC) [Entitic vol] 87.4 fL Normal 81.0-99.0 [facility] Comment on above: Performed By: #### B MP, HSTRP, CBCWD, ETOHS, OSMOL, ANION, EGFR1, TSH3, LIPAS, MG, NTBNP, HEPPA #### [place] [address] Monocytes/100 WBC (Bld) 13.2 % Normal [facility] Comment on above: Performed By: #### B MP, HSTRP, CBCWD, ETOHS, OSMOL, ANION, EGFR1, TSH3, LIPAS, MG, NTBNP, HEPPA #### [address] [address] Neutrophils/100 WBC (Bld) 65.3 % Normal [facility] Comment on above: Performed By: #### B MP, HSTRP, CBCWD, ETOHS, OSMOL, ANION, EGFR1, TSH3, LIPAS, MG, NTBNP, HEPPA #### [address] [address] NRBC 0 /100 wbc Normal [facility] Comment on above: Performed By: #### B MP, HSTRP, CBCWD, ETOHS, OSMOL, ANION, EGFR1, TSH3, LIPAS, MG, NTBNP, HEPPA #### [address] [address] PLATELET 156 thou/mm3 Normal 130-400 [facility] Comment on above: Performed By: #### B MP, HSTRP, CBCWD, ETOHS, OSMOL, ANION, EGFR1, TSH3, LIPAS, MG, NTBNP, HEPPA #### [address] [address] Platelet mean volume (Bld) [Entitic vol] 10.8 fL Normal 9.4-12.4 [facility] Comment on above: Performed By: #### B MP, HSTRP, CBCWD, ETOHS, OSMOL, ANION, EGFR1, TSH3, LIPAS, MG, NTBNP, HEPPA #### [place] [address] RBC 3.01 mill/mm3 Low 4.20-5.40 [facility] Comment on above: Performed By: #### B MP, HSTRP, CBCWD, ETOHS, OSMOL, ANION, EGFR1, TSH3, LIPAS, MG, NTBNP, HEPPA #### [place] [address] RDW-SD 51.7 fL High 35.0-45.0 [facility] Comment on above: Performed By: #### B MP, HSTRP, CBCWD, ETOHS, OSMOL, ANION, EGFR1, TSH3, LIPAS, MG, NTBNP, HEPPA #### [facility] [address] [place] [address] WBC 6.0 thou/mm3 Normal 4.8-10.8 [facility] Comment on above: Performed By: #### B MP, HSTRP, CBCWD, ETOHS, OSMOL, ANION, EGFR1, TSH3, LIPAS, MG, NTBNP, HEPPA #### [facility] [address] [place] [address] CBC with Auto Differentialon 12-13-2023 Basophils (Bld) [#/Vol] 0.0 10*3/uL [facility] Basophils/100 WBC (Bld) 0.7 % B [facility] Eosinophils Absolute 0.1 [facility] Eosinophils/100 WBC (Bld) 1.5 % [facility] Erythrocyte distribution width (RBC) [Entitic vol] 51.7 fL High 35.0 - 45.0 fL [facility] Erythrocyte distribution width (RBC) [Ratio] 16.6 % High 11.5 - 14.5 % [facility] Hematocrit (Bld) [Volume fraction] 26.3 % Low 37.0 - 47.0 % [facility] Hemoglobin (Bld) [Mass/Vol] 7.7 g/dL Low [facility] Immature granulocytes (Bld) [#/Vol] 0.04 10*3/uL [facility] Immature granulocytes/100 WBC (Bld) 0.7 % [facility] Interpretation and review of laboratory results Abnormal [facility] Lymphocytes Absolute 1.1 [facility] Lymphocytes/100 WBC (Bld) 18.6 % [facility] MCH (RBC) [Entitic mass] 25.6 pg Low 26.0 - 33.0 pg [facility] MCHC (RBC) [Mass/Vol] 29.3 g/dL Low [facility] MCV (RBC) [Entitic vol] 87.4 fL 81.0 - 99.0 fL [facility] Monocytes Absolute 0.8 [facility] Monocytes/100 WBC (Bld) 13.2 % [facility] Neutrophils Absolute 3.9 [facility] Neutrophils/100 WBC (Bld) 65.3 % [facility] Nucleated RBC/100 WBC (Bld) [Ratio] 0 % /100 wbc [facility] Comment on above: Performed at [facility] [address] [place] [address] Platelet mean volume (Bld) [Entitic vol] 10.8 fL 9.4 - 12.4 fL [facility] Platelets (Bld) [#/Vol] 156 10*3/uL [facility] RBC (Bld) [#/Vol] 3.01 10*6/uL Low [facility] WBC (Bld) [#/Vol] 6.0 10*3/uL [facility] CT Head WO contraston 2023 1. No acute intracranial hemorrhage This report has been created using voice recognition software. It may contain minor errors which are inherent in voice recognition technology. [facility] Nimo Alexis MD - 12/13/2023 PROCEDURE: CT HEAD WO CONTRAST CLINICAL INFORMATION:Altered mental status COMPARISON: No prior study. TECHNIQUE: 5 mm axial imaging through the head without IV contrast. All CT scans at this facility use dose modulation, iterative reconstruction, and/or weight based dosing when appropriate to reduce the radiation dose to as low as reasonably achievable. FINDINGS: Mild scattered white matter hypodensities are noted. No ventriculomegaly. No midline shift or mass effect. No acute intracranial hemorrhage. No intracranial collection. Hutchinson-white differentiation is unremarkable. The posterior fossa is unremarkable. The craniocervical junction is unremarkable. No acute bony abnormality. The paranasal sinuses are clear. The mastoid air cells are clear. The orbits are unremarkable. IMPRESSION: 1. No acute intracranial hemorrhage This report has been created using voice recognition software. It may contain minor errors which are inherent in voice recognition technology. [facility] Radiology Study observation (narrative) LEW GUEVARA [facility] EKG 12-LEADon 12-13-2023 EKG 12-LEAD 84 84 172 82 374 441 61 16 48 Normal sinus rhythm Normal ECG No previous ECGs available Confirmed by JIA PEREIRA ([id number]) on 12/14/2023 11:40:07 AM [email or web address]&Date=13-12-2023&Ti me=[id number]& TestType=ECG&Site=3&O utputType=PDF&Ext=PDF Normal [facility] ETHYL ALCOHOL BLOODon 2023 ETHYL ALCOHOL BLOOD < 0.01 Normal 0.00 [facility] Comment on above: Performed By: #### B MP, HSTRP, CBCWD, ETOHS, OSMOL, ANION, EGFR1, TSH3, LIPAS, MG, NTBNP, HEPPA #### [employer] [address] [place] [address] Ethanolon 12-13-2023 Ethanol [Mass/Vol] mg/dL 0.00 % [facility] Comment on above: Performed at [facility] [address] [place] [address] GFR, ESTIMATEDon 12-13-2023 GFR/1.73 sq M.predicted MDRD (S/P/Bld) [Vol rate/Area] mL/min/{1.73_m2} Normal >60 [facility] Comment on above: Result Comment: Pedi atric calculator link https://www.kidney.org/professionals/kdoqi/gfr_calculatorped Effective Apr 22, 2022 These results are not intended for use in patients <18 years of age. eGFR results are calculated without a race factor using the 2020 CKD-EPI equation. Careful clinical correlation is recommended, particularly when comparing to results calculated using previous equations. The CKD-EPI equation is less accurate in patients with extremes of muscle mass, extra-renal metabolism of creatinine, excessive creatine ingestion, or following therapy that affects renal tubular secretion. Performed By: #### B MP, HSTRP, CBCWD, ETOHS, OSMOL, ANION, EGFR1, TSH3, LIPAS, MG, NTBNP, HEPPA #### [facility] [employer] [address] [address] GLUCOSE POCon 12-13-2023 Glucose [Mass/Vol] 111 mg/dL High 70-108 [facility] Comment on above: Performed By: #### B MP, HSTRP, CBCWD, ETOHS, OSMOL, ANION, EGFR1, TSH3, LIPAS, MG, NTBNP, HEPPA #### [facility] [employer] [address] [address] Glomerular Filtration Rate, Estimatedon 12-13-2023 GFR/1.73 sq M.predicted MDRD (S/P/Bld) [Vol rate/Area] mL/min/{1.73_m2} - [facility] Comment on above: Pediatric calculator link https://www.kidney.org/professionals/kdoqi/gfr_calculatorped Effective Apr 22, 2022 These results are not intended for use in patients <18 years of age. eGFR results are calculated without a race factor using the 2020 CKD-EPI equation. Careful clinical correlation is recommended, particularly when comparing to results calculated using previous equations. The CKD-EPI equation is less accurate in patients with extremes of muscle mass, extra-renal metabolism of creatinine, excessive creatine ingestion, or following therapy that affects renal tubular secretion. Performed at [facility] [address] [address] Glucose Auto test strip (Bld ) [Mass/Vol]on 12-13-2023 Glucose [Mass/Vol] 111 mg/dL High 70 - 108 mg/dl [facility] Comment on above: Performed at [facility] [employer] [facility] [address] [place] [id number] Interpretation and review of laboratory results Abnormal [facility] Albumin [Mass/Vol] 3.9 g/dL Normal 3.5-5.1 [facility] Comment on above: Performed By: #### B MP, HSTRP, CBCWD, ETOHS, OSMOL, ANION, EGFR1, TSH3, LIPAS, MG, NTBNP, HEPPA #### [address] [address] ALP [Catalytic activity/Vol] 102 U/L Normal 38-126 [facility] Comment on above: Performed By: #### B MP, HSTRP, CBCWD, ETOHS, OSMOL, ANION, EGFR1, TSH3, LIPAS, MG, NTBNP, HEPPA #### [address] [address] ALT [Catalytic activity/Vol] 20 U/L Normal 11-66 [facility] Comment on above: Performed By: #### B MP, HSTRP, CBCWD, ETOHS, OSMOL, ANION, EGFR1, TSH3, LIPAS, MG, NTBNP, HEPPA #### [address] [address] AST [Catalytic activity/Vol] 44 U/L High 5-40 [facility] Comment on above: Performed By: #### B MP, HSTRP, CBCWD, ETOHS, OSMOL, ANION, EGFR1, TSH3, LIPAS, MG, NTBNP, HEPPA #### [address] [address] Bilirubin [Mass/Vol] 1.2 mg/dL Normal 0.3-1.2 [facility] Comment on above: Performed By: #### B MP, HSTRP, CBCWD, ETOHS, OSMOL, ANION, EGFR1, TSH3, LIPAS, MG, NTBNP, HEPPA #### [address] [address] Bilirubin.direct [Mass/Vol] 0.5 mg/dL High 0.0-0.3 [facility] Comment on above: Performed By: #### B MP, HSTRP, CBCWD, ETOHS, OSMOL, ANION, EGFR1, TSH3, LIPAS, MG, NTBNP, HEPPA #### [address] [address] Protein [Mass/Vol] 7.9 g/dL Normal 6.1-8.0 [facility] Comment on above: Performed By: #### B MP, HSTRP, CBCWD, ETOHS, OSMOL, ANION, EGFR1, TSH3, LIPAS, MG, NTBNP, HEPPA #### [facility] [address] [place] [address] HIGH SENSTIVITY TROPONINon 0 12-13-2023 HIGH SENSTIVITY TROPONIN 22 ng/L High 0-12 [facility] Comment on above: Result Comment: The high-sensitivity troponin T result should not be compared with other troponin methodologies. Rising or falling high-sensitivity troponin T is significant if >= 6. Performed By: #### B MP, HSTRP, CBCWD, ETOHS, OSMOL, ANION, EGFR1, TSH3, LIPAS, MG, NTBNP, HEPPA #### [facility] [address] [place], [place] [id number] Hepatic function 2000 panelo n 12-13-2023 Albumin BCG dye [Mass/Vol] 3.9 g/dL 3.5 - 5.1 g/dL [facility] ALP [Catalytic activity/Vol] 102 U/L 38 - 126 U/L [facility] ALT No additional P-5'-P [Catalytic activity/Vol] 20 U/L 11 - 66 U/L [facility] AST [Catalytic activity/Vol] 44 U/L High 5 - 40 U/L [facility] Bilirubin [Mass/Vol] 1.2 mg/dL 0.3 - 1 .2 mg/dL [facility] Bilirubin.conjugated [Mass/Vol] 0.5 mg/dL High 0.0 - 0.3 mg/dL [facility] Protein [Mass/Vol] 7.9 g/dL 6.1 - 8.0 g/dL [facility] Comment on above: Performed at [facility] [address] [place] [address] Influenza virus A and B RNA and SARS-CoV-2 (COVID-19) N gene panel EN+probe (Resp)on 12-13-2023 FLUAV RNA EN+probe Ql (Resp) Not detected NOT DETECTED [facility] FLUBV RNA EN+probe Ql (Resp) Not detected NOT DETECTED [facility] Comment on above: Performed at [facility] [address] [place] [address] SARS-CoV-2 (COVID-19) RNA EN+probe Ql (Resp) Not detected NOT DETECTED [facility] Comment on above: Not Detected results do not preclude SARS-CoV-2 infection and should not be used as the sole basis for patient management decisions. Results must be combined with clinical observations, patient history, and epidemiological information. Testing was performed using [employer] Marie SARS-CoV-2 and Influenza A/B nucleic acid assay. This test is a multiplex Real-Time Reverse Transcriptase Polymerase Chain Reaction (RT-PCR)-based in vitro diagnostic test intended for the qualitative detection of nucleic acids from SARS-CoV-2, influenza A, and influenza B in nasopharyngeal and nasal swab specimens. [facility] LIPASEon 12-13-2023 Lipase [Catalytic activity/Vol] 59.7 U/L High 5.6-51.3 [facility] Comment on above: Performed By: #### B MP, HSTRP, CBCWD, ETOHS, OSMOL, ANION, EGFR1, TSH3, LIPAS, MG, NTBNP, HEPPA #### [facility] [place] [address] Lipaseon 12-13-2023 Lipase [Catalytic activity/Vol] 59.7 U/L High 5.6 - 51.3 U/L [facility] Comment on above: Performed at [facility] [address] [place] [address] MAGNESIUMon 12-13-2023 Magnesium [Mass/Vol] 1.5 mg/dL Low 1.6-2.4 [facility] Comment on above: Performed By: #### B MP, HSTRP, CBCWD, ETOHS, OSMOL, ANION, EGFR1, TSH3, LIPAS, MG, NTBNP, HEPPA #### [facility] [address] [place] [address] Magnesiumon 12-13-2023 Magnesium [Mass/Vol] 1.5 mg/dL Low 1.6 - 2 .4 mg/dL [facility] Comment on above: Performed at [facility] [address] [place] [address] NT PRO-B NATRIURETIC PEPTIDE on 12-13-2023 Natriuretic peptide B (Bld) [Mass/Vol] 182.9 pg/mL High 0.0-124.0 [facility] Comment on above: Performed By: #### B MP, HSTRP, CBCWD, ETOHS, OSMOL, ANION, EGFR1, TSH3, LIPAS, MG, NTBNP, HEPPA #### [facility] [address] [place] [address] No Panel Informationon 12-12 Interpretation and review of laboratory results Abnormal [facility] Interpretation and review of laboratory results Abnormal [facility] Osmolalityon 12-13-2023 Osmolality Calc [Osmolality] 264.9 Low [facility] Comment on above: Performed at [facility] [address] [place] [address] Portable XR Chest AP single viewon 12-13-2023 1. No acute cardiopulmonary finding.. This report has been created using voice recognition software. It may contain minor errors which are inherent in voice recognition technology. [facility] Nimo Smith MD - 12/13/2023 PROCEDURE: XR CHEST PORTABLE CLINICAL INFORMATION: Shortness of breath COMPARISON: No prior study. TECHNIQUE: Single frontal view of the chest performed. FINDINGS: No focal pulmonary consolidation. Cardiac silhouette is mildly enlarged. No pleural effusion. No pneumothorax. No acute bony abnormality. IMPRESSION: 1. No acute cardiopulmonary finding.. This report has been created using voice recognition software. It may contain minor errors which are inherent in voice recognition technology. [facility] Radiology Study observation (narrative) [facility] Portable XR Chest AP single viewOrdered By: Nimo Smith on 12-13-2023 [facility] Work Phone: SARS-COV-2 & INFLUENZA A/[facility] 12-13-2023 INFLUENZA A, RT-PCR Not detected Normal NOT DETECTED [facility] Comment on above: Performed By: #### B MP, HSTRP, CBCWD, ETOHS, OSMOL, ANION, EGFR1, TSH3, LIPAS, MG, NTBNP, HEPPA #### [facility] [address] [place] [address] INFLUENZA B, RT-PCR Not detected Normal NOT DETECTED [facility] Comment on above: Performed By: #### B MP, HSTRP, CBCWD, ETOHS, OSMOL, ANION, EGFR1, TSH3, LIPAS, MG, NTBNP, HEPPA #### [place] [address] SARS-CoV-2 (COVID-19) RNA EN+probe Ql (Unsp spec) Not detected Normal NOT DETECTED [facility] Comment on above: Result Comment: Not Detected results do not preclude SARS-CoV-2 infection and should not be used as the sole basis for patient management decisions. Results must be combined with clinical observations, patient history, and epidemiological information. Testing was performed using TY[employer] Marie SARS-CoV-2 and Influenza A/B nucleic acid assay. This test is a multiplex Real-Time Reverse Transcriptase Polymerase Chain Reaction (RT-PCR)-based in vitro diagnostic test intended for the qualitative detection of nucleic acids from SARS-CoV-2, influenza A, and influenza B in nasopharyngeal and nasal swab specimens. Performed By: #### B MP, HSTRP, CBCWD, ETOHS, OSMOL, ANION, EGFR1, TSH3, LIPAS, MG, NTBNP, HEPPA #### [place] [address] TSH DL <= 0.005 mIU/L Qnon 0 12-13-2023 TSH Qn 5.040 m[IU]/L High [facility] Comment on above: Performed at [facility] [address] [place] [address] TSH THIRD GENERATIONon 12-12 TSH THIRD GENERATION 5.040 uIU/mL High 0.400-4.200 S [facility] Comment on above: Performed By: #### B MP, HSTRP, CBCWD, ETOHS, OSMOL, ANION, EGFR1, TSH3, LIPAS, MG, NTBNP, HEPPA #### [place] [address] Troponinon 12-13-2023 Troponin, High Sensitivity 22 ng/L High 0 - 12 ng/L [facility] Comment on above: The high-sensitivity troponin T result should not be compared with other troponin methodologies. Rising or falling high-sensitivity troponin T is significant if >= 6. Performed at [facility] [address] [place] [address] Urinalysis dipstick W Reflex Culture panel (U)on 12-13-2023 Bilirubin Ql (U) Negative NEGATIVE [facility] Character (U) CLEAR CLEAR-SL CLOUD [facility] Comment on above: Performed at [facility] [address] [place] [address] Color, UA YELLOW STRAW-YELLO W [facility] Glucose Auto test strip Ql (U) Negative NEGATIVE mg/dl [facility] Hemoglobin Auto test strip Ql (U) Negative NEGATIVE [facility] Ketones Auto test strip Ql (U) Negative NEGATIVE [facility] Nitrite Ql (U) Negative NEGATIVE [facility] pH (U) 6.0 [pH] 5.0 - 9.0 [facility] Protein (U) [Mass/Vol] Negative NEGATIVE [facility] Specific gravity Refractometry automated (U) [Rel density] 1.015 1.002 - 1.030 [facility] Urobilinogen, Urine 0.2 [facility] WBC LM.HPF (Urine sed) [#/Area] Negative NEGATIVE [facility] Urine Drug Screenon 12-13-19 24 Amphetamines Screen Ql (U) Negative NEGATIVE [facility] Barbiturates Screen Ql (U) Negative NEGATIVE [facility] Benzodiazepines Ql (U) Negative NEGATIVE [facility] Benzoylecgonine Screen Ql (U) Negative NEGATIVE [facility] Cannabinoids Screen Ql (U) Negative NEGATIVE [facility] Fentanyl Negative NEGATIVE [facility] Comment on above: A Negative result for a drug abuse screen test indicates that the drug concentration is below the following cutoffs: Amphetamine/Methamphetamine 1000 ng/ml Barbiturate 200 ng/ml Benzodiazapine 200 ng/ml Cannabinoids 50 ng/ml Cocaine Metabolite 300 ng/ml Opiates 300 ng/ml Oxycodone 100 ng/ml Phencyclidine 25 ng/ml Fentanyl 5 ng/ml A Positive result for a drug abuse screen test should be considered presumptive positive until/unless confirmed by another method. (Additional request) Quantitative values from a reference laboratory are available upon additional request. These results are for medical use only. Performed at [facility] [address] [place] [address] Opiates Screen Ql (U) Negative NEGATIVE [facility] Oxycodone Negative NEGATIVE [facility] Phencyclidine Ql (U) Negative NEGATIVE [facility] Glucose - FINGER STICKon Glucose [Mass/Vol] 133 mg/dL [facility] Other Albumin [Mass/volume] in Ser um or PlasmaOrdered By: Remy Motley on 06-01-2022 Albumin [Mass/Vol] 3.8 g/dL 3.2-5.5 [facility] Amphetamine Screen Ql (U)Ord ered By: Remy Motley on 06-01-2022 Amphetamines Ql (U) Negative Negative [facility] Automated erythrocytes count in urine sediment (number/area)Ordered By: Remy Motley on 06-01-2022 RBC Auto (Urine sed) [#/Area] 0-1 [HPF] 0-4 [facility] Automated leukocytes count i n urine sediment (number/area)Ordered By: Remy Motley on 06-01-2022 WBC Auto (Urine sed) [#/Area] 3-4 [HPF] 0-4 [facility] Barbiturates [Presence] in U rineOrdered By: Remy Motley on 06-01-2022 Barbiturates Ql (U) Negative Negative [facility] Basophils Auto (Bld) [#/Vol] Ordered By: Remy Motley on 06-01-2022 Basophils (Bld) [#/Vol] 0.1 10*3/uL 0.0-0.2 [facility] Basophils/100 WBC Auto (Bld) Ordered By: Remy Motley on 06-01-2022 Basophils/100 WBC (Bld) 1.2 % . F [facility] Benzodiazepines [Presence] i n UrineOrdered By: Remy Motley on 06-01-2022 Benzodiazepines Ql (U) Negative Negative [facility] Bilirubin Test strip Ql (U)O rdered By: Remy Motley on 06-01-2022 Bilirubin Ql (U) Negative Negative [facility] COVID-19 Antigenon 2 COVID-19 Antigen Healthcare [...] developed and its performance characteristic determined by [facility] and validated at [facility]. This test has not been FDA cleared [...] for SARS Antigen by MY PERFORMED BY: [place] [address] PATHOLOGIST SIDE HEMMER IDANIA WHITESIDE M.D. [facility] Comment on above: Performed By: #### T SH3 wRFLX, T4F, LIPID, [id number] #### [address] COVID-19 SOFIAOrdered By: Ja belen Motley on 06-01-2022 SARS-CoV+SARS-CoV-2 (COVID-19) Ag IA.rapid Ql (Resp) Negative Negative [facility] Comment on above: This is a duplicate Kate SARS Antigen (MY) result to be used for statistical tracking purpose only. Cannabinoids [Presence] in U rine by Screen methodOrdered By: Remy Tiesha on 06-01-2022 Cannabinoids Screen Ql (U) Negative Negative [facility] Comment on above: These are unconfirme d results and should not be used for legal purposes. Drug Cut-Off Concentration: AMPH 1000 ng/mL NENITA 200 ng/mL SWETA 200 ng/mL COCM 300 ng/mL OP 300 ng/mL PCP 25 ng/mL THC 20 ng/mL Color Auto (U)Ordered By: Coleman Motley on 06-01-2022 Color (U) Yellow Yellow [facility] Complete Blood Count Auto Di ffon 06-01-2022 Basophils (Bld) [#/Vol] 0.1 10*3/uL Normal 0.0-0.2 [facility] Comment on above: Result Comment: PERF ORMED BY: [place] [address] PATHOLOGIST SIDE HEMMER IDANIA WHITESIDE M.D. Performed By: #### [address] #### [place] [address] [place] Basophils/100 WBC (Bld) 1.2 % Normal . [facility] Comment on above: Performed By: #### [address] #### [place] [address] [place] Eosinophils (Bld) [#/Vol] 0.2 10*3/uL Normal 0.0-0.45 [facility] Comment on above: Performed By: #### [address] #### [place] [address] [place] Eosinophils/100 WBC (Bld) 3.3 % Normal . [facility] Comment on above: Performed By: #### [address] #### [address] [place] [address] [place] Erythrocyte distribution width (RBC) [Ratio] 13.5 % Normal 11.9-15.3 [facility] Comment on above: Performed By: #### [address] #### [facility] [address] Hematocrit (Bld) [Volume fraction] 38.3 % Normal 34.0-46.4 [facility] Comment on above: Performed By: #### [address] #### [address] Hemoglobin (Bld) [Mass/Vol] 12.8 g/dL Normal 11.8-15.4 [facility] Comment on above: Performed By: #### [address] #### [address] Lymphocytes (Bld) [#/Vol] 1.7 10*3/uL Normal 1.00-4.8 [facility] Comment on above: Performed By: #### [address] #### [address] Lymphocytes/100 WBC (Bld) 32.3 % Normal . [facility] Comment on above: Performed By: #### [address] #### [address] MCH (RBC) [Entitic mass] 32.8 pg Normal 24.7-34.3 [facility] Comment on above: Performed By: #### [address] #### [address] MCV (RBC) [Entitic vol] 98.2 fL Normal 80-100 F [facility] Comment on above: Performed By: #### [address] #### [address] Mean Corpuscular HGB Conc 33.4 g/dL Normal 32.0-35.0 [facility] Comment on above: Performed By: #### [address] #### [address] [place] [address] [place] Monocytes (Bld) [#/Vol] 0.5 10*3/uL Normal 0.0-0.8 [facility] Comment on above: Performed By: #### [address] #### [facility] [address] [place] [address] [place] Monocytes/100 WBC (Bld) 9.6 % Normal . F [facility] Comment on above: Performed By: #### [address] #### [facility] [address] [place] [address] [place] Neutrophils (Bld) [#/Vol] 2.9 10*3/uL Normal 1.8-7.7 [facility] Comment on above: Performed By: #### [address] #### [facility] [address] [place] [id number] [place] Neutrophils/100 WBC (Bld) 53.6 % Normal . [facility] Comment on above: Performed By: #### [address] #### [facility] [address] [place] [id number] [place] Nucleated RBC/100 WBC (Bld) [Ratio] 0.1 % Normal 0-0.5 [facility] Comment on above: Performed By: #### [address] #### [facility] [address] [place] [address] [place] Platelet mean volume (Bld) [Entitic vol] 7.6 fL Normal 6.3-10.7 [facility] Comment on above: Performed By: #### [address] #### [facility] [address] [place] [address] [place] Platelets (Bld) [#/Vol] 179 10*3/uL Normal 150-450 [facility] Comment on above: Performed By: #### [address] #### [facility] [address] [place] [address] [place] RBC (Bld) [#/Vol] 3.90 10*6/uL Normal 3.60-5.00 [facility] Comment on above: Performed By: #### [address] #### [facility] [address] [place] [address] [facility] WBC (Bld) [#/Vol] 5.4 10*3/uL Normal 4.5-11.0 [facility] Comment on above: Performed By: #### [address] #### [facility] [address] [place] [address] [facility] Comprehensive Metabolic Pane huber 06-01-2022 Albumin [Mass/Vol] 3.8 g/dL Normal 3.2-5.5 [facility] Comment on above: Performed By: #### [address] #### [facility] [address] [place] [id number] [facility] Albumin/Globulin [Mass ratio] 1.1 {ratio} Normal [facility] Comment on above: Performed By: #### [address] #### [facility] [address] [place] [id number] [facility] ALP [Catalytic activity/Vol] 98 U/L High 32-92 [facility] Comment on above: Performed By: #### [address] #### [facility] [address] [place] [address] [facility] ALT [Catalytic activity/Vol] 54 U/L Normal 10-60 [facility] Comment on above: Performed By: #### [address] #### [place] [id number] [facility] Anion gap [Moles/Vol] 12.4 mmol/L Normal 6.0-15.0 [facility] Comment on above: Performed By: #### [address] #### [facility] [address] [place] [address] [facility] AST [Catalytic activity/Vol] 100 U/L High 10-42 [facility] Comment on above: Performed By: #### [address] #### [facility] [address] [place] [id number] [facility] Bilirubin [Mass/Vol] 0.6 mg/dL Normal 0.3-1.2 [facility] Comment on above: Performed By: #### [address] #### [facility] [address] Calcium [Mass/Vol] 8.6 mg/dL Normal 8.2-10.2 [facility] Comment on above: Performed By: #### [address] #### [facility] [address] Chloride [Moles/Vol] 100 mmol/L Normal 95-114 [facility] Comment on above: Performed By: #### [address] #### [address] CO2 [Moles/Vol] 23.8 mmol/L Normal 22.0-30.0 [facility] Comment on above: Performed By: #### [address] #### [address] Creatinine [Mass/Vol] 0.70 mg/dL Normal 0.44-1.03 [facility] Comment on above: Performed By: #### [address] #### [place] [address] [place] Creatinine Clr Calc Pharmacy 71.02 [facility] Comment on above: Result Comment: PERF ORMED BY: [place] [address] PATHOLOGIST SIDE HEMMER IDANIA WHITESIDE M.D. Performed By: #### [address] #### [address] Estimated GFR ( Radha > 60 [facility] Comment on above: Result Comment: GFR estimated reference range: According to KDOQI guidelines, <60 ml/min/1.73m2 is sufficient to diagnose a patient with chronic kidney disease. Performed By: #### [address] #### [place] [address] [place] Estimated GFR (Non- Am > 60 [facility] Comment on above: Performed By: #### [address] #### [address] Globulin (S) [Mass/Vol] 3.4 g/dL Normal F [facility] Comment on above: Performed By: #### [address] #### [facility] [address] Glucose [Mass/Vol] 138 mg/dL High 70-100 [facility] Comment on above: Result Comment: [facility] Glucose Reference Range is dependent on time and content of last meal. Glucose of more than 200 mg/dL in a nonstressed, ambulatory subject supports the diagnosis of Diabetes Mellitus. ADA recommended reference range Performed By: #### [address] #### [facility] [address] Potassium [Moles/Vol] 4.2 mmol/L Normal 3.5-5.1 [facility] Comment on above: Performed By: #### [address] #### [facility] [address] Protein [Mass/Vol] 7.2 g/dL Normal 6.1-7.9 [facility] Comment on above: Performed By: #### [address] #### [facility] [address] Sodium [Moles/Vol] 132 mmol/L Low 136-146 [facility] Comment on above: Performed By: #### [address] #### [facility] [address] [place] [id number] [facility] Urea nitrogen [Mass/Vol] 22 mg/dL Normal 9-23 [facility] Comment on above: Performed By: #### [address] #### [facility] [address] [place] [address] [place] Creatinine and Glomerular fi ltration rate.predicted panel (S/P/Bld)Ordered By: Remy Motley on 06-01-2022 Creatinine [Mass/Vol] 0.70 mg/dL 0.44-1.03 [facility] Dipstick and Microscopicon 1 08-01-2021 Appearance (U) Clear Normal Clear [facility] Comment on above: Order Comment: Comme nt use ed blood Comment us ed blood Performed By: #### T SH3 wRFLX, T4F, LIPID, [id number] #### [facility] [address] [place] [address] [place] Bacteria,Urine None Seen Normal None Seen [facility] Comment on above: Order Comment: Comme nt use ed blood Comment us ed blood Performed By: #### T SH3 wRFLX, T4F, LIPID, [id number] #### [facility] [address] [place] [address] [place] Bilirubin,Urine Negative Normal Negative [facility] Comment on above: Order Comment: Comme nt use ed blood Comment us ed blood Performed By: #### T SH3 wRFLX, T4F, LIPID, [id number] #### [facility] [address] [place] [address] [place] Color (U) Yellow Normal Yellow [facility] Comment on above: Order Comment: Comme nt use ed blood Comment us ed blood Performed By: #### T SH3 wRFLX, T4F, LIPID, [id number] #### [facility] [address] [place] [address] [place] Glucose Ql (U) Normal Normal Normal [facility] Comment on above: Order Comment: Comme nt use ed blood Comment us ed blood Performed By: #### T SH3 wRFLX, T4F, LIPID, [id number] #### [facility] [address] [place] [address] [place] Hyaline Casts,Urine 0-8 Normal 0-8 [facility] Comment on above: Order Comment: Comme nt use ed blood Comment us ed blood Result Comment: PERF ORMED BY: [place] [address] PATHOLOGIST SIDE HEMMER IDANIA WHITESIDE M.D. Performed By: #### T SH3 wRFLX, T4F, LIPID, [id number] #### [facility] [address] [place] [address] [place] Ketones Ql (U) Negative Normal Negative [facility] Comment on above: Order Comment: Comme nt use ed blood Comment us ed blood Performed By: #### T SH3 wRFLX, T4F, LIPID, [id number] #### [facility] [address] Leukocyte esterase Test strip Ql (U) 3+ High Negative [facility] Comment on above: Order Comment: Comme nt use ed blood Comment us ed blood Performed By: #### T SH3 wRFLX, T4F, LIPID, [id number] #### [facility] [address] Nitrite,Urine Negative Normal Negative [facility] Comment on above: Order Comment: Comme nt use ed blood Comment us ed blood Performed By: #### T SH3 wRFLX, T4F, LIPID, [id number] #### [facility] [address] [place] [address] Occult Blood,Urine Negative Normal Negative [facility] Comment on above: Order Comment: Comme nt use ed blood Comment us ed blood Result Comment: PERF ORMED BY: [place] [address] PATHOLOGIST SIDE HEMMER IDANIA WHITESIDE M.D. Performed By: #### T SH3 wRFLX, T4F, LIPID, [id number] #### [facility] [address] [place] [address] pH (U) 6.5 [pH] Normal 5.0-9.0 [facility] Comment on above: Order Comment: Comme nt use ed blood Comment us ed blood Performed By: #### T SH3 wRFLX, T4F, LIPID, [id number] #### [facility] [address] Protein,Urine Negative Normal Negative [facility] Comment on above: Order Comment: Comme nt use ed blood Comment us ed blood Performed By: #### T SH3 wRFLX, T4F, LIPID, [id number] #### [facility] [address] [place] [address] RBC LM.HPF (Urine sed) [#/Area] 0 /[HPF] Normal 0-4 [facility] Comment on above: Order Comment: Comme nt use ed blood Comment us ed blood Performed By: #### T SH3 wRFLX, T4F, LIPID, [id number] #### [facility] [address] Specificy Sells,Urine 1.005 Normal 1.001-1.030 [facility] Comment on above: Order Comment: Comme nt use ed blood Comment us ed blood Performed By: #### T SH3 wRFLX, T4F, LIPID, [id number] #### [facility] [address] Squamous Epithelial Cell,Urine 0-1 Normal 0-2 [facility] Comment on above: Order Comment: Comme nt use ed blood Comment us ed blood Performed By: #### T SH3 wRFLX, T4F, LIPID, [id number] #### [facility] [address] Urobilinogen,Urine Normal Normal Normal [facility] Comment on above: Order Comment: Comme nt use ed blood Comment us ed blood Performed By: #### T SH3 wRFLX, T4F, LIPID, [id number] #### [facility] [address] [place] [address] [place] WBC,Urine 3-4 Normal 0-4 [facility] Comment on above: Order Comment: Comme nt use ed blood Comment us ed blood Performed By: #### T SH3 wRFLX, T4F, LIPID, [id number] #### [facility] [address] [place] [address] [place] Drug Screen,Urineon 06-01-20 22 Amphetamine Screen,Urine Negative Normal Negative [facility] Comment on above: Performed By: #### T SH3 wRFLX, T4F, LIPID, [id number] #### [facility] [address] Barbiturate Screen,Urine Negative Normal Negative [facility] Comment on above: Performed By: #### T SH3 wRFLX, T4F, LIPID, [id number] #### [facility] [address] [place] [address] [place] Benzodiazepines Screen,Urine Negative Normal Negative [facility] Comment on above: Performed By: #### T SH3 wRFLX, T4F, LIPID, [id number] #### [facility] [address] [place] [address] [place] Cannabinoid Screen,Urine Negative Normal Negative [facility] Comment on above: Result Comment: Thes e are unconfirmed results and should not be used for legal purposes. Drug Cut-Off Concentration: AMPH 1000 ng/mL NENITA 200 ng/mL SWETA 200 ng/mL COCM 300 ng/mL OP 300 ng/mL PCP 25 ng/mL THC 20 ng/mL PERFORMED BY: [place] [address] PATHOLOGIST SIDE HEMMER IDANIA WHITESIDE M.D. Performed By: #### T SH3 wRFLX, T4F, LIPID, [id number] #### [address] Cocaine Screen,Urine Negative Normal Negative [facility] Comment on above: Performed By: #### T SH3 wRFLX, T4F, LIPID, [id number] #### [address] Opiate Screen,Urine Negative Normal Negative [facility] Comment on above: Performed By: #### T SH3 wRFLX, T4F, LIPID, [id number] #### [address] Phencyclidine Screen,Urine Negative Normal Negative [facility] Comment on above: Performed By: #### T SH3 wRFLX, T4F, LIPID, [id number] #### [address] ECG 12 lead ECGon 06-01-2022 ECG 12 lead ECG [facility] [place] [address] [place] [address] Electrocardiograph Report Signed Patient: Alyce David MR#: [id number] : 1955 Acct:[id number] Age/Sex: 66 / F ADM Date: 06/01/22 Loc: Room: [address] [place] [address] Type: DIS IN Attending Dr: Tye Subramanian [...] is now present Confirmed by CAIT CIFUENTES [facility], SHARLENE ([id number]) on 06/02/2022 4:04:05 PM Referred By: Electronically Signed By:SHARLENE FUENTES MD [facility] Transcribed By: MUS Signed By Ivan Fuentes MD 06/02/22 1604 Normal [facility] Eosinophils Auto (Bld) [#/Vo l]Ordered By: Remy Motley on 06-01-2022 Eosinophils (Bld) [#/Vol] 0.2 10*3/uL 0.0-0.45 [facility] Eosinophils/100 WBC Auto (Bl d)Ordered By: Remy Motley on 06-01-2022 Eosinophils/100 WBC (Bld) 3.3 % . [facility] Erythrocyte distribution wid th Auto (RBC) [Ratio]Ordered By: Remy Motley on 06-01-2022 Erythrocyte distribution width (RBC) [Ratio] 13.5 % 11.9-15.3 [facility] Estimated glomerular filtrat ion rate (GFR) non- AmericanOrdered By: Remy Motley on 06-01-2022 GFR/1.73 sq M.predicted among non-blacks MDRD (S/P/Bld) [Vol rate/Area] > 60 mL/Min [facility] Ethyl Alcohol Profileon 05-21 Ethanol [Mass/Vol] 268 mg/dL Normal [facility] Comment on above: Performed By: #### C OVID 19 [facility] #### [facility] [address] [place] [address] Percent Ethanol 0.268 % Normal [facility] Comment on above: Result Comment: PERF ORMED BY: [place] [address] PATHOLOGIST SIDE HEMMER IDANIA WHITESIDE M.D. Performed By: #### C OVID 19 [facility] #### [facility] [address] [place] [address] Free T4 (Free Thyroxine)on 08-01-2021 Free T4 [Mass/Vol] 0.71 ng/dL Normal 0.61-1.12 [facility] Comment on above: Order Comment: Comme nt use ed blood Comment us ed blood Performed By: #### T SH3 wRFLX, T4F, LIPID, [id number] #### [facility] [address] [place] [address] Globulin Calc (S) [Mass/Vol] Ordered By: Remy Motley on 06-01-2022 Globulin (S) [Mass/Vol] 3.4 g/dL F [facility] HCG ( test) IA.rapi d Ql (U)Ordered By: Remy Motley on 06-01-2022 HCG ( test) Ql (U) Negative [facility] HCG,Urineon 06-01-2022 Beta HCG ( test) Ql (U) Negative Normal [facility] Comment on above: Result Comment: PERF ORMED BY: [place] [address] PATHOLOGIST SIDE HEMMER IDANIA WHITESIDE M.D. Performed By: #### C K, ESR, BMP, CRP #### [facility] [address] [place] [address] #### MYOG, ALDOLASE #### [facility] , Hematocrit Auto (Bld) [Volum e fraction]Ordered By: Remy Motley on 06-01-2022 Hematocrit (Bld) [Volume fraction] 38.3 % 34.0-46.4 [facility] Hemoglobin [Mass/volume] in BloodOrdered By: Remy Motley on 06-01-2022 Hemoglobin (Bld) [Mass/Vol] 12.8 g/dL 11.8-15.4 [facility] Ketones Auto test strip (U) [Mass/Vol]Ordered By: Remy Motley on 06-01-2022 Ketones (U) [Mass/Vol] Negative Negative [facility] - Drug toxicology Ordered By: Remy Motley on 06-01-2022 Opiates Ql (U) Negative Negative [facility] - Hematology and Cell countsOrdered By: Remy Motley on 06-01-2022 Nucleated RBC/100 WBC (Bld) [Ratio] 0.1 % 0-0.5 [facility] - UrinalysisOrder ed By: Remy Motley on 06-01-2022 Hyaline casts LM Ql (Urine sed) 0-8 [LPF] 0-8 [facility] Leukocytes [#/volume] in Blo od by Automated countOrdered By: Remy Motley on 06-01-2022 WBC (Bld) [#/Vol] 5.4 10*3/uL 4.5-11.0 [facility] Lipid Panelon 06-01-2022 Cholesterol [Mass/Vol] 188 mg/dL Normal 140-200 [facility] Comment on above: Order Comment: Comme nt use ed blood Comment us ed blood Result Comment: Chol less than 200 mg/dl low risk Chol 201-239 mg/dl borderline risk Chol 240 mg/dl and greater high risk Performed By: #### T SH3 wRFLX, T4F, LIPID, [id number] #### [facility] [address] [place] [id number] [place] Cholesterol in HDL [Mass/Vol] 38 mg/dL Normal 35-85 [facility] Comment on above: Order Comment: Comme nt use ed blood Comment us ed blood Result Comment: HDL CHOL ATP-III CLASSIFICATION Cardiovascular Risk HDL > or equal to 60 mg/dL LOW HDL < 40 mg/dL HIGH Performed By: #### T SH3 wRFLX, T4F, LIPID, [id number] #### [facility] [address] [place] [address] [place] Cholesterol.total/Judith sterol in HDL [Mass ratio] 4.9 {ratio} Normal <5.0 [facility] Comment on above: Order Comment: Comme nt use ed blood Comment us ed blood Performed By: #### T SH3 wRFLX, T4F, LIPID, [id number] #### [facility] [address] LDL Cholesterol,Calculated 83 mg/dL Normal 0-100 [facility] Comment on above: Order Comment: Comme nt use ed blood Comment us ed blood Result Comment: LDL ATP III CLASSIFICATION LDL less than 100 mg/dL Optimal LDL 100-129 mg/dL Near or above optimal LDL 130-159 mg/dL Borderline high LDL 160-189 mg/dL High LDL greater than 189 mg/dL Very high Performed By: #### T SH3 wRFLX, T4F, LIPID, [id number] #### [facility] [address] Triglyceride w/Reflex 335 mg/dL High 35-149 [facility] Comment on above: Order Comment: [...] By: #### T SH3 wRFLX, T4F, LIPID, [id number] #### [facility] [address] VLDL CHOLESTEROL 67 mg/dL Normal [facility] Comment on above: Order Comment: Comme nt use ed blood Comment us ed blood Performed By: #### T SH3 wRFLX, T4F, LIPID, [id number] #### [facility] [address] [place] [address] [place] Lymphocytes Auto (Bld) [#/Vo l]Ordered By: Remy Motley on 06-01-2022 Lymphocytes (Bld) [#/Vol] 1.7 10*3/uL 1.00-4.8 [facility] Lymphocytes/100 WBC Auto (Bl d)Ordered By: Remy Motley on 06-01-2022 Lymphocytes/100 WBC (Bld) 32.3 % . [facility] MCH Auto (RBC) [Entitic mass ]Ordered By: Remy Motley on 06-01-2022 MCH (RBC) [Entitic mass] 32.8 pg 24.7-34.3 [facility] MCHC Auto (RBC) [Mass/Vol]Or dered By: Remy Motley on 06-01-2022 MCHC (RBC) [Mass/Vol] 33.4 g/dL 32.0-35.0 Fir [facility] MCV Auto (RBC) [Entitic vol] Ordered By: Remy Motley on 06-01-2022 MCV (RBC) [Entitic vol] 98.2 fL 80-100 F [facility] Monocytes Auto (Bld) [#/Vol] Ordered By: Remy oMtley on 06-01-2022 Monocytes (Bld) [#/Vol] 0.5 10*3/uL 0.0-0.8 [facility] Monocytes/100 WBC Auto (Bld) Ordered By: Remy Motley on 06-01-2022 Monocytes/100 WBC (Bld) 9.6 % . F [facility] Neutrophils Auto (Bld) [#/Vo l]Ordered By: Remy Motley on 06-01-2022 Neutrophils (Bld) [#/Vol] 2.9 10*3/uL 1.8-7.7 [facility] Neutrophils/100 WBC Auto (Bl d)Ordered By: Remy Motley on 06-01-2022 Neutrophils/100 WBC (Bld) 53.6 % . [facility] Nitrite Test strip Ql (U)Ord ered By: Remy Motley on 06-01-2022 Nitrite Ql (U) Negative Negative [facility] No Panel InformationOrdered By: Remy Motley on 06-01-2022 Estimated GFR () > 60 mL/Min [facility] Comment on above: GFR estimated refere nce range: According to KDOQI guidelines, <60 ml/min/1.73m2 is sufficient to diagnose a patient with chronic kidney disease. Pharmacy Creatinine Clearance (Chem 71.02 [facility] SARS Antigen (LFIA) [facility] Phencyclidine Screen Ql (U)O rdered By: Remy Motley on 06-01-2022 Phencyclidine Ql (U) Negative Negative [facility] Platelet mean volume Auto (B ld) [Entitic vol]Ordered By: Remy Motley on 06-01-2022 Platelet mean volume (Bld) [Entitic vol] 7.6 fL 6.3-10.7 [facility] Platelets Auto (Bld) [#/Vol] Ordered By: Remy Motley on 06-01-2022 Platelets (Bld) [#/Vol] 179 10*3/uL 150-450 [facility] Protein Auto test strip (U) [Mass/Vol]Ordered By: Remy Motley on 06-01-2022 Protein (U) [Mass/Vol] Negative Negative [facility] Protein [Mass/volume] in Ser um or PlasmaOrdered By: Remy Motley on 06-01-2022 Protein [Mass/Vol] 7.2 g/dL 6.1-7.9 [facility] RBC Auto (Bld) [#/Vol]Ordere d By: Remy Motley on 06-01-2022 RBC (Bld) [#/Vol] 3.90 10*6/uL 3.60-5.00 [facility] Serum or plasma alanine willson otransferase measurement without P-5'-P (enzymatic activiOrdered By: Remy Motley on 06-01-2022 ALT No additional P-5'-P [Catalytic activity/Vol] 54 U/L 10-60 [facility] Serum or plasma albumin/glob ulin mass ratioOrdered By: Remy Motley on 06-01-2022 Albumin/Globulin [Mass ratio] 1.1 {ratio} [facility] Serum or plasma alkaline manny sphatase measurement (enzymatic activity/volume)Ordered By: Remy Motley on 06-01-2022 ALP [Catalytic activity/Vol] 98 U/L 32-92 [facility] Serum or plasma anion gap de terminationOrdered By: Remy Motley on 06-01-2022 Anion gap [Moles/Vol] 12.4 mmol/L 6.0-15.0 [facility] Serum or plasma aspartate am inotransferase measurement (enzymatic activity/volume)Ordered By: Remy Motley on 06-01-2022 AST [Catalytic activity/Vol] 100 U/L 10-42 [facility] Serum or plasma calcium juan ramon urement (mass/volume)Ordered By: Remy Motley on 06-01-2022 Calcium [Mass/Vol] 8.6 mg/dL 8.2-10.2 [facility] Serum or plasma chloride adebayo surement (moles/volume)Ordered By: Remy Motley on 06-01-2022 Chloride [Moles/Vol] 100 mmol/L 95-114 [facility] Serum or plasma ethanol juan ramon urement (mass/volume)Ordered By: Remy Motley on 06-01-2022 Ethanol [Mass/Vol] 268 mg/dL [facility] Ethanol [Mass/Vol] 0.268 % [facility] Serum or plasma glucose juan ramon urement (mass/volume)Ordered By: Remy Motley on 06-01-2022 Glucose [Mass/Vol] 138 mg/dL 70-100 [facility] Comment on above: ADA recommended refe rence rangeRandom Glucose Reference Range is dependent on time and content of last meal. Glucose of more than 200 mg/dL in a nonstressed, ambulatory subject supports the diagnosis of Diabetes Mellitus. Serum or plasma potassium me asurement (moles/volume)Ordered By: Remy Motley on 06-01-2022 Potassium [Moles/Vol] 4.2 mmol/L 3.5-5.1 [facility] Serum or plasma sodium measu rement (moles/volume)Ordered By: Remy Motley on 06-01-2022 Sodium [Moles/Vol] 132 mmol/L 136-146 [facility] Serum or plasma total biliru bin measurement (mass/volume)Ordered By: Remy Motley on 06-01-2022 Bilirubin [Mass/Vol] 0.6 mg/dL 0.3-1.2 [facility] Serum or plasma total carbon dioxide measurement (moles/volume)Ordered By: Remy Motley on 06-01-2022 CO2 [Moles/Vol] 23.8 mmol/L 22.0-30.0 [facility] Serum or plasma urea nitroge n measurement (mass/volume)Ordered By: Remy Motley on 06-01-2022 Urea nitrogen [Mass/Vol] 22 mg/dL 04-12 [facility] Kate Ag Negativeon 06-01-20 Kate Ag Negative Negative Normal Negative [facility] Comment on above: Result Comment: This is a duplicate Kate SARS Antigen (MY) result to be used for statistical tracking purpose only. PERFORMED BY: [place] [address] PATHOLOGIST SIDE HEMMER IDANIA WHITESIDE M.D. Performed By: #### T SH3 wRFLX, T4F, LIPID, [id number] #### [facility] [address] [place] [address] Specific gravity Auto test s trip (U) [Rel density]Ordered By: Remy Motley on 06-01-2022 Specific gravity (U) [Rel density] 1.005 1.001-1.030 [facility] Squamous epithelial cells de tection in urine sediment by light microscopyOrdered By: Remy Motley on 06-01-2022 Epithelial cells.squamous LM Ql (Urine sed) 0-1 [HPF] 0-2 [facility] Thyroid Stim Hormone w/Rflxo n 06-01-2022 Thyroid Stim Hormone w/Rflx 14.64 u[iU]/mL High 0.45-5.33 [facility] Comment on above: Order Comment: Comme nt use ed blood Comment us ed blood Performed By: #### T SH3 wRFLX, T4F, LIPID, [id number] #### [facility] [address] [place] [address] [place] Urine bacteria detection by automated methodOrdered By: Remy Motley on 06-01-2022 Bacteria Auto Ql (U) None seen None Seen [facility] Urine clarity by refractomet ry automatedOrdered By: Remy Motley on 06-01-2022 Clarity Refractometry automated (U) Clear Clear [facility] Urine cocaine detectionOrder ed By: Remy Motley on 06-01-2022 Cocaine Ql (U) Negative Negative [facility] Urine glucose measurement by automated test strip (mass/volume)Ordered By: Remy Motley on 06-01-2022 Glucose Auto test strip (U) [Mass/Vol] Normal mg/dL Normal [facility] Urine hemoglobin detection b y automated test stripOrdered By: Remy Motley on 06-01-2022 Hemoglobin Auto test strip Ql (U) Negative Negative [facility] Urine leukocyte esterase det ection by automated test stripOrdered By: Remy Motley on 06-01-2022 Leukocyte esterase Auto test strip Ql (U) 3+ Negative [facility] Urobilinogen Auto test strip (U) [Mass/Vol]Ordered By: Remy Motley on 06-01-2022 Urobilinogen (U) [Mass/Vol] Normal mg/dL Normal [facility] Vitamin D 25 Hydroxy Totalon 06-01-2022 Vitamin D 25 Hydroxy Total 24.2 ng/mL Low 30-100 [facility] Comment on above: Order Comment: Comme nt use ed blood Comment us ed blood Result Comment: [place] MIN D STATUS 25(OH)VITAMIN D RANGE (ng/mL) Deficient <20 Insufficient 20 to <30 Sufficient 30 to 100 Reference: Bandar MF,Cara YEUNG, Marissa NICHOLAS, et al. Evaluation,treatment, and prevention of vitamin D deficiency; an Endocrine Society clinical practice guideline. JCEM. 2010; 96(7):1911-30. PERFORMED BY: [place] [address] PATHOLOGIST SIDE HEMMER IDANIA WHITESIDE M.D. Performed By: #### C K, ESR, BMP, CRP #### [place] [address] [place] #### MYOG, ALDOLASE #### [facility] , pH Auto test strip (U)Ordere d By: Remy Motley on 06-01-2022 pH (U) 6.5 [pH] 5.0-9.0 [facility] Ambulatory Visit Summaryon 0 11-15-2021 Ambulatory Visit Summary ALYCE DAVID :1955 Visit Date:11/15/2021 Ambulatory Visit Instructions Your Diagnosis Urinary retention UTI (urinary tract infection) Tests Performed Urnls Dip Stick Auto w/o Microscopy POC 06690 Your Care Team Attending Physician - Rayo [...] Urnls Dip Stick Auto w/o Microscopy POC 14210 (11/15/2021) Bilirubin Urine Dipstick - Negative Blood Urine Dipstick - Negative Glucose Urine Dipstick - Negative Ketones Urine Dipstick - Negative Leukocytes Urine Dipstick - Trace Nitrite Urine Dipstick - Negative Protein Urine Dipstick - Negative Specific Sells Urine Dipstick - 1.020 Urine Appearance Urine [...] Hypertension Urinary retention UTI (urinary tract infection) Sadaf Vivas [facility] Patient Educationon 11-16-19 Patient Education Obstetrics and [...] Follow these instructions at home: ? Take xigv-aup-jutkctx and prescription medicines only as told by [...] 07/06/2007 Document Revised: 06/19/2018 Document Reviewed: 08/08/2017 [employer] Patient Education ? 2019 [employer]. Sadaf Vivas [facility] Urology Office/Clinic Noteon 11-15-2021 Urology Office/Clinic Note [...] 11/15/2021 11:54:21. . Documentation recorded by the scribe, Julio Slade , accurately reflects the services(s) I performed [...] Protein Urine Dipstick: Negative (11/15/21 11:06:00) Specific Sells Urine Dipstick: 1.020 (11/15/21 11:06:00) Urine Appearance Urine Dipstick: Clear (11/15/21 11:06:00) Urine Color Urine Dipstick: Yellow (11/15/21 11:06:00) Urobilinogen Urine Dipstick: Normal 0.2-1 EU/dl (11/15/21 11:06:00) pH Urine Dipstick: 5.5 (11/15/21 11:06:00) Diagnostic Results Tests Reviewed: Reviewed UA. Normal [facility] Comment on above: Result Comment: Elec tronically Signed By: Dottie Cade MD\.br\Date and Time Signed: 11/15/21 12:03 EDT\.br\Electronically Co-Signed By: Julio Slade\.br\Date and Time Co-Signed: 11/15/21 11:54 EDT CBC W Auto Differential pane l (Bld)on 10-30-2021 Basophils (Bld) [#/Vol] 0.12 10*3/uL High <0.11 [facility] Comment on above: Order Comment: Speci men Type: BLOOD SPECIMEN Ordering Facility: [facility] Address: [address] [place] [address] Performed By: #### M PNP #### [facility] CLIA [id number] [address] [place] [address] [place] #### 53217-2 #### [facility] CLIA [id number] [address] [place] [address] Basophils/100 WBC (Bld) 1.1 % Normal C [facility] Comment on above: Order Comment: Speci men Type: BLOOD SPECIMEN Ordering Facility: [facility] Address: [address] [place] [address] Performed By: #### M PNP #### [facility] CLIA [id number] [address] [place] [address] [place] #### 96720-4 #### [facility] CLIA [id number] [address] [place] [address] Differential cell count method Nom (Bld) Auto Normal [facility] Comment on above: Order Comment: Speci men Type: BLOOD SPECIMEN Ordering Facility: [facility] Address: [address] [place] [address] Performed By: #### M PNP #### [facility] CLIA [id number] [address] [place] [address] [place] #### 44834-1 #### [facility] CLIA [id number] [address] [place] [address] Eosinophils (Bld) [#/Vol] 0.51 10*3/uL High <0.46 [facility] Comment on above: Order Comment: Speci men Type: BLOOD SPECIMEN Ordering Facility: [facility] Address: [address] [place] [address] Performed By: #### M PNP #### [facility] CLIA [id number] [address] [place] [address] [place] #### 58906-2 #### [facility] CLIA [id number] [address] [place] [address] Eosinophils/100 WBC (Bld) 4.6 % Normal [facility] Comment on above: Order Comment: Speci men Type: BLOOD SPECIMEN Ordering Facility: [facility] Address: [address] [place], [place] [id number] Performed By: #### M PNP #### [facility] CLIA [id number] [address] [place] [address] [place] #### 88889-5 #### [facility] CLIA [id number] [address] [place] [address] Erythrocyte distribution width (RBC) [Ratio] 14.9 % Normal 11.5-15.0 [facility] Comment on above: Order Comment: Speci men Type: BLOOD SPECIMEN Ordering Facility: [facility] Address: [address] [place] [address] Performed By: #### M PNP #### [facility] CLIA [id number] [address] [place] [address] [place] #### 23177-1 #### [facility] CLIA [id number] [address] [place], [place] [address] Hematocrit (Bld) [Volume fraction] 34.1 % Low 36.0-46.0 [facility] Comment on above: Order Comment: Speci men Type: BLOOD SPECIMEN Ordering Facility: [facility] Address: [address] [place], [place] [address] Performed By: #### M PNP #### [facility] CLIA [id number] [address] [place] [address] [place] #### 24049-3 #### [facility] CLIA [id number] [address] [place], [place] [address] Hemoglobin (Bld) [Mass/Vol] 10.8 g/dL Low 11.5-15.5 [facility] Comment on above: Order Comment: Speci men Type: BLOOD SPECIMEN Ordering Facility: [facility] Address: [address] [place], [place] [address] Performed By: #### M PNP #### [facility] CLIA [id number] [address] [place] [address] [place] #### 67235-5 #### [facility] CLIA [id number] [address] [place], [place] [address] IMMATURE GRAN % 1.2 % Normal [facility] Comment on above: Order Comment: Speci men Type: BLOOD SPECIMEN Ordering Facility: [facility] Address: [address] [place] [address] Performed By: #### M PNP #### [facility] CLIA [id number] [address] [place] [address] [place] #### 63072-7 #### [facility] CLIA [id number] [address] [place] [address] IMMATURE GRAN ABS 0.13 k/uL High <0.10 [facility] Comment on above: Order Comment: Speci men Type: BLOOD SPECIMEN Ordering Facility: [facility] Address: [address] [place] [address] Performed By: #### M PNP #### [facility] CLIA [id number] [address] [place] [address] [place] #### 92531-1 #### [facility] CLIA [id number] [address] [place] [address] Lymphocytes (Bld) [#/Vol] 2.03 10*3/uL Normal 1.00-4.00 [facility] Comment on above: Order Comment: Speci men Type: BLOOD SPECIMEN Ordering Facility: [facility] Address: [address] [place] [address] Performed By: #### M PNP #### [facility] CLIA [id number] [address] [place] [address] [place] #### 91210-7 #### [facility] CLIA [id number] [address] [place], [place] [address] Lymphocytes/100 WBC (Bld) 18.2 % Normal [facility] Comment on above: Order Comment: Speci men Type: BLOOD SPECIMEN Ordering Facility: [facility] Address: [address] [place], [place] [address] Performed By: #### M PNP #### [facility] CLIA [id number] [address] [place] [address] [place] #### 16942-7 #### [facility] CLIA [id number] [address] [place] [address] MCH (RBC) [Entitic mass] 30.3 pg Normal 26.0-34.0 [facility] Comment on above: Order Comment: Speci men Type: BLOOD SPECIMEN Ordering Facility: [facility] Address: [address] [place] [address] Performed By: #### M PNP #### [facility] CLIA [id number] [address] [place] [address] #### 98893-8 #### [facility] CLIA [id number] [address] [place] [address] MCHC (RBC) [Mass/Vol] 31.7 g/dL Normal 30.5-36.0 [facility] Comment on above: Order Comment: Speci men Type: BLOOD SPECIMEN Ordering Facility: [facility] Address: [address] [place] [address] Performed By: #### M PNP #### [facility] CLIA [id number] [address] [place] [address] [place] #### 40553-9 #### [facility] CLIA [id number] [address] [place], [place] [address] MCV (RBC) [Entitic vol] 95.5 fL Normal 80.0-100.[address] [facility] Comment on above: Order Comment: Speci men Type: BLOOD SPECIMEN Ordering Facility: [facility] Address: [address] [place], [place] [address] Performed By: #### M PNP #### [facility] CLIA [id number] [address] [place] [address] [place] #### 76763-3 #### [facility] CLIA [id number] [address] [place] [address] Monocytes (Bld) [#/Vol] 0.86 10*3/uL Normal <0.87 [facility] Comment on above: Order Comment: Speci men Type: BLOOD SPECIMEN Ordering Facility: [facility] Address: [address] [place] [address] Performed By: #### M PNP #### [facility] CLIA [id number] [address] [place] [address] [place] #### 07884-1 #### [facility] CLIA [id number] [address] [place] [address] Monocytes/100 WBC (Bld) 7.7 % Normal [facility] Comment on above: Order Comment: Speci men Type: BLOOD SPECIMEN Ordering Facility: [facility] Address: [address] [place], [place] [address] Performed By: #### M PNP #### [facility] CLIA [id number] [address] [place] [address] [place] #### 97825-8 #### [facility] CLIA [id number] [address] [place] [address] Neutrophils (Bld) [#/Vol] 7.50 10*3/uL Normal 1.45-7.50 [facility] Comment on above: Order Comment: Speci men Type: BLOOD SPECIMEN Ordering Facility: [facility] Address: [address] [place] [address] Performed By: #### M PNP #### [facility] CLIA [id number] [address] [place] [address] [place] #### 27715-2 #### [facility] CLIA [id number] [address] [place] [address] 39718 Neutrophils/100 WBC (Bld) 67.2 % Normal [facility] Comment on above: Order Comment: Speci men Type: BLOOD SPECIMEN Ordering Facility: [facility] Address: [address] [place] [address] Performed By: #### M PNP #### [facility] CLIA [id number] [address] [place] #### 28437-5 #### [facility] CLIA [id number] [address] [place] [address] Nucleated RBC (Bld) [#/Vol] 10*3/uL Normal <0.01 [facility] Comment on above: Order Comment: Speci men Type: BLOOD SPECIMEN Ordering Facility: [facility] Address: [address] [place] [address] Performed By: #### M PNP #### [facility] CLIA [id number] [address] [place] [address] [place] #### 91300-2 #### [facility] CLIA [id number] [address] [place] [address]9412 Nucleated RBC/100 WBC (Bld) [Ratio] 0.0 /100 WBC Normal [facility] Comment on above: Order Comment: Speci men Type: BLOOD SPECIMEN Ordering Facility: [facility] Address: [address] [place] [address] Performed By: #### M PNP #### [facility] CLIA [id number] [address] [place] [address] [place] #### 40100-1 #### [facility] CLIA [id number] [address] [place] [address] Platelet mean volume (Bld) [Entitic vol] 9.0 fL Normal 9.0-12.7 [facility] Comment on above: Order Comment: Speci men Type: BLOOD SPECIMEN Ordering Facility: [facility] Address: [address] [place] [address] Performed By: #### M PNP #### [facility] CLIA [id number] [address] [place] [address] [place] #### 97289-6 #### [facility] CLIA [id number] [address] [place] [address]3683 Platelets (Bld) [#/Vol] 336 10*3/uL Normal 150-400 [facility] Comment on above: Order Comment: Speci men Type: BLOOD SPECIMEN Ordering Facility: [facility] Address: [address] [place] [address] Performed By: #### M PNP #### [facility] CLIA [id number] [address] [place] [address] [place] #### 28593-9 #### [facility] CLIA [id number] [address] [place] [address] RBC (Bld) [#/Vol] 3.57 10*6/uL Low 3.90-5.20 [facility] Comment on above: Order Comment: Speci men Type: BLOOD SPECIMEN Ordering Facility: [facility] Address: [address] [place] [address] Performed By: #### M PNP #### [facility] CLIA [id number] [address] [place] [address] [place] #### 63061-9 #### [facility] CLIA [id number] [address] [place] [address] WBC (Bld) [#/Vol] 11.15 10*3/uL High 3.70-11.00 [facility] Comment on above: Order Comment: Speci men Type: BLOOD SPECIMEN Ordering Facility: [facility] Address: [address] [place], [place] [address] Performed By: #### M PNP #### [facility] CLIA [id number] [address] [place] [address] [place] #### 19239-2 #### [facility] CLIA [id number] [address] [place] [address]65[address] Abs Immature Gran 0.13 k/uL High <0.10 k/uL [facility] Basophils (Bld) [#/Vol] 0.12 10*3/uL High <0.11 k/uL [facility] Basophils/100 WBC (Bld) 1.1 % [facility] Differential cell count method Nom (Bld) Auto [facility] Eosinophils (Bld) [#/Vol] 0.51 10*3/uL High <0.46 k/uL [facility] Eosinophils/100 WBC (Bld) 4.6 % [facility] Erythrocyte distribution width (RBC) [Ratio] 14.9 % 11.5 - 15.0 % [facility] Hematocrit (Bld) [Volume fraction] 34.1 % Low 36.0 - 46.0 % [facility] Hemoglobin (Bld) [Mass/Vol] 10.8 g/dL Low 11.5 - 15.5 g/dL [facility] Immature Gran % 1.2 % [facility] Lymphocytes (Bld) [#/Vol] 2.03 10*3/uL 1.00 - 4.00 k/uL [facility] Lymphocytes/100 WBC (Bld) 18.2 % [facility] MCH (RBC) [Entitic mass] 30.3 pg 26.0 - 34.0 pg [facility] MCHC (RBC) [Mass/Vol] 31.7 g/dL 30.5 - 36.0 g/dL [facility] MCV (RBC) [Entitic vol] 95.5 fL 80.0 - 100.0 fL [facility] Monocytes (Bld) [#/Vol] 0.86 10*3/uL <0.87 k/uL [facility] Monocytes/100 WBC (Bld) 7.7 % [facility] Neutrophils (Bld) [#/Vol] 7.50 10*3/uL 1.45 - 7.50 k/uL [facility] Neutrophils/100 WBC (Bld) 67.2 % [facility] Nucleated RBC (Bld) [#/Vol] 10*3/uL <0.01 k/uL [facility] Nucleated RBC/100 WBC (Bld) [Ratio] 0.0 /100 WBC [facility] Platelet mean volume (Bld) [Entitic vol] 9.0 fL 9.0 - 12.7 fL [facility] Platelets (Bld) [#/Vol] 336 10*3/uL 150 - 400 k/uL [facility] RBC (Bld) [#/Vol] 3.57 10*6/uL Low 3.90 - 5.2 0 m/uL [facility] WBC (Bld) [#/Vol] 11.15 10*3/uL High 3.70 - 11.00 k/uL [facility] CNOVSPon 10-30-2021 CNOVSP Visit (SP) Office ([place]) ALYCE DAVID ([id number]) 1955 F Date Time Provider Department 10/30/21 [...] hemoglobin ranging from 9?10 g/dL noted during [facility] hospitalization (presented with proximal muscle weakness, urinary [...] is itching. She has not seen a physical medicine specialist. She is here to follow-up with a [...] are from cancer. She lives alone in [place], [place] but now has her son for [...] neurologist to complete the work-up. Referral to physical medicine specialist for inflammatory skin rash. XR chest was notable for mild diffuse interstitial infiltrates. Cough is improving. If it worsens, will consider CT chest in the future. Follow-up in 4 weeks with repeat labs. Carl Patel MD I spent a total of 25 minutes on the date of the service which included preparing to see the patient, [id number] patient care, completing clinical documentation, obtaining and/or reviewing separately obtained history, performing a medically appropriate examination, counseling and educating the patient/family/caregi patti, ordering medications, tests, or procedures, independently interpreting results (not separately reported) and communicating results to the patient/family/caregi patti. Maricarmen Kebede MA 10/30/2021 11:02 AM Signed Patient was recently in the [facility] due to Anemia. CHRIS Zimmerman MD 10/30/2021 12:21 PM Signed Addended by: CARL PATEL on: 10/30/2021 12:21 PM Modules accepted: Orders Referring Provider: CARL PATEL [[id number]] Allergies As of Date: 10/30/2021 (No Known Allergies) Date Reviewed: 10/30/2021 Reviewed by: Maricarmen Kebede MA - (more content not included)... Normal [facility] CNPNon 10-30-2021 CNPN Telephone (NCCAP) MERCEDESHELGAALYCE ([id number]) 1955 F Date Time Provider Department 10/30/21 [facility] During your visit today, we recorded the following information about you: Rosa Marin Sec 10/30/2021 11:34 AM Signed Alyce is being referred to [facility] for skin rash. Mikaela, Please fax records to their office for referral. They will call the patient to schedule. Info printed in your mailbox for faxing. Thank you!! Corinna Yu [facility] 10/30/2021 1:05 PM Signed Records faxed to [facility]. Kimber Singh Pss 10/31/2021 12:25 PM Signed Called [facility] spoke with Nuria. She states [...] Status:Closed by ROSA PRETTY on 11/01/21 Normal [facility] Comprehensive metabolic 2000 panelon 10-30-2021 Albumin [Mass/Vol] 4.0 g/dL Normal 3.9-4.9 [facility] Comment on above: Order Comment: Speci men Type: BLOOD SPECIMEN Ordering Facility: [facility] Address: [address] Performed By: #### K LFRS #### [facility] CLIA [id number] [address] [place] [address] [place] ALP [Catalytic activity/Vol] 106 U/L Normal 34-123 [facility] Comment on above: Order Comment: Speci men Type: BLOOD SPECIMEN Ordering Facility: [facility] Address: [address] [place], [place] [address] Performed By: #### K LFRS #### [facility] CLIA [id number] [address] [place] [address] [place] ALT [Catalytic activity/Vol] 24 U/L Normal 7-38 [facility] Comment on above: Order Comment: Speci men Type: BLOOD SPECIMEN Ordering Facility: [facility] Address: [address] [place], [place] [address] Performed By: #### K LFRS #### [facility] CLIA [id number] [address] [place] [address] [place] Anion gap [Moles/Vol] 9 mmol/L Normal 9-18 [facility] Comment on above: Order Comment: Speci men Type: BLOOD SPECIMEN Ordering Facility: [facility] Address: [address] [place], [place] [address] Performed By: #### K LFRS #### [facility] CLIA [id number] [address] [place] [address] [place] AST [Catalytic activity/Vol] 20 U/L Normal 13-35 [facility] Comment on above: Order Comment: Speci men Type: BLOOD SPECIMEN Ordering Facility: [facility] Address: [address] [place], [place] [address] Performed By: #### K LFRS #### [facility] CLIA [id number] [address] [place] [place] [address] [place] Bilirubin [Mass/Vol] 0.2 mg/dL Normal 0.2-1.3 [facility] Comment on above: Order Comment: Speci men Type: BLOOD SPECIMEN Ordering Facility: [facility] Address: [address] [place] [address] Performed By: #### K LFRS #### [facility] CLIA [id number] [address] [place] [address] [place] Calcium [Mass/Vol] 9.7 mg/dL Normal 8.5-10.2 [facility] Comment on above: Order Comment: Speci men Type: BLOOD SPECIMEN Ordering Facility: [facility] Address: [address] [place], [place] [address] Performed By: #### K LFRS #### [facility] CLIA [id number] [address] [place] [address] [place] Chloride [Moles/Vol] 100 mmol/L Normal 97-105 [facility] Comment on above: Order Comment: Speci men Type: BLOOD SPECIMEN Ordering Facility: [facility] Address: [address] [place] [address] Performed By: #### K LFRS #### [facility] CLIA [id number] [address] [place] [address] [place] CO2 [Moles/Vol] 27 mmol/L Normal 22-30 [facility] Comment on above: Order Comment: Speci men Type: BLOOD SPECIMEN Ordering Facility: [facility] Address: [address] [place] [address] Performed By: #### K LFRS #### [facility] CLIA [id number] [address] [place] [address] [place] Creatinine [Mass/Vol] 0.61 mg/dL Normal 0.58-0.96 [facility] Comment on above: Order Comment: Speci men Type: BLOOD SPECIMEN Ordering Facility: [facility] Address: [address] [place], [place] [address] Performed By: #### K LFRS #### [facility] CLIA [id number] [address] [place] [address] OF [facility] ESTIMATED GLOMERULAR FILTRATION RATE 98 mL/min/1.73m??? Normal >=60 [facility] Comment on above: Order Comment: Romeo vasquez Type: BLOOD SPECIMEN Ordering Facility: [facility] Address: [address] [place] [address] Result Comment: Christelle mated Glomerular Filtration Rate [...] GFR. Performed By: #### K LFRS #### [facility] CLIA [id number] [address] [place] [address] [place] Glucose [Mass/Vol] 106 mg/dL High 74-99 [facility] Comment on above: Order Comment: Romeo vasquez Type: BLOOD SPECIMEN Ordering Facility: [facility] Address: [address] [place] [address] Result Comment: The [place] Diabetes Association (ADA) provides guidance for cutoff [...] Standards of Medical Care in Diabetes 2016, [place] Diabetes Association. Diabetes Care. 2016.39(Suppl 1). Performed By: #### K LFRS #### [facility] CLIA [id number] [address] [place] [address] [place] Potassium [Moles/Vol] 3.8 mmol/L Normal 3.7-5.1 [facility] Comment on above: Order Comment: Speci men Type: BLOOD SPECIMEN Ordering Facility: [facility] Address: [address] [place], [place] [address] Performed By: #### K LFRS #### [facility] CLIA [id number] [address] [place] [address] [place] Protein [Mass/Vol] 6.8 g/dL Normal 6.3-8.0 [facility] Comment on above: Order Comment: Speci men Type: BLOOD SPECIMEN Ordering Facility: [facility] Address: [address] [place], [place] [address] Performed By: #### K LFRS #### [facility] CLIA [id number] [address] [place] [address] [place] Sodium [Moles/Vol] 136 mmol/L Normal 136-144 [facility] Comment on above: Order Comment: Speci men Type: BLOOD SPECIMEN Ordering Facility: [facility] Address: [address] [place], [place] [address] Performed By: #### K LFRS #### [facility] CLIA [id number] [address] [place] [address] [place] Urea nitrogen [Mass/Vol] 14 mg/dL Normal 7-21 [facility] Comment on above: Order Comment: Speci men Type: BLOOD SPECIMEN Ordering Facility: [facility] Address: [address] [place], [place] [address] Performed By: #### K LFRS #### [facility] CLIA [id number] [address] [place] [address] [place] Albumin [Mass/Vol] 4.0 g/dL 3.9 - 4.9 g/dL [facility] ALP [Catalytic activity/Vol] 106 U/L 34 - 123 U/L [facility] ALT [Catalytic activity/Vol] 24 U/L 7 - 38 U/L [facility] Anion gap [Moles/Vol] 9 mmol/L 9 - 18 mmol/L [facility] AST [Catalytic activity/Vol] 20 U/L 13 - 35 U/L [facility] Bilirubin [Mass/Vol] 0.2 mg/dL 0.2 - 1 .3 mg/dL [facility] Calcium [Mass/Vol] 9.7 mg/dL 8.5 - 10. 2 mg/dL [facility] Chloride [Moles/Vol] 100 mmol/L 97 - 10 5 mmol/L [facility] CO2 [Moles/Vol] 27 mmol/L 22 - 30 mmol/L [facility] Creatinine [Mass/Vol] 0.61 mg/dL 0.58 - 0.96 mg/dL [facility] Estimated Glomerular Filtration Rate 98 mL/min/1.73m >=60 mL/min/1.73 m [facility] Glucose [Mass/Vol] 106 mg/dL High 74 - 99 mg/dL [facility] Potassium [Moles/Vol] 3.8 mmol/L 3.7 - 5.1 mmol/L [facility] Protein [Mass/Vol] 6.8 g/dL 6.3 - 8.0 g/dL [facility] Sodium [Moles/Vol] 136 mmol/L 136 - 144 mmol/L [facility] Urea nitrogen [Mass/Vol] 14 mg/dL 7 - 21 mg/dL [facility] MYELOPROLIFERATIVE NEOPLASM PANEL BLOODon 10-30-2021 MYELOPROLIFERATIVE NEOPLASM PNL PERIPHERAL BLOOD Normal [facility] Comment on above: Order Comment: Speci men Type: BLOOD SPECIMEN Ordering Facility: [facility] Address: [address] [place], [place] [address] Result Comment: Myel oproliferative Neoplasm Panel Laboratory Accession Number: [id number] Sample Type: Peripheral Blood Result: CALR - [...] sequencing was performed on the Illumina instrument ([place], [place]). A customized bioinformatic pipeline was used to align the sequencing reads to the reference human genome (GRCh37/hg19). Benign common polymorphisms are not reported. Limitations: Sequence changes outside the analyzed regions, including intronic, noncoding, and splice-site variants, will not be identified by this test. The lower limit of detection of this assay is approximately 1% allele proportion for the JAK2 [id number] single nucleotide variant and approximately 5% allele [...] developed and its performance characteristics determined by [facility]'s [facility] [place] ([facility]). It has not been cleared or approved by the FDA. [facility] is regulated under CLIA as certified to perform high- complexity testing. This test is used for clinical purposes. It should not be regarded as investigational or for research. Testing and interpretation performed at [facility], [address] [place] [address]. CLIA Number: [id number] References: 1) Rosio DA, Nika A, John R, Kalen J, Borreyes MJ, Marie Smallwood MM, et al. The 2016 revision to the World Health Organization (WHO) classification of myeloid neoplasms and acute leukemia. Blood 2016;127: 2391-405. 2) NCCN Guidelines, Myeloproliferative Neoplasms, Version 2.2018. 3) Damien K, Janes YEUNG. Genomics of Myeloproliferative Neoplasms. J Clin Oncol. 2017 Oct 07;35(9):945-956. As reviewed by Ayde Kan, PhD, HCLD Performed By: #### M PNP #### [facility] CLIA [id number] [address] [place] [address] [place] #### 12378-5 #### [facility] CLIA [id number] [address] [place] [address] Nuclear Ab IA Ql (S)on 10-30 DENISE BY EIA, QUAL Negative Normal Negative [facility] Comment on above: Order Comment: Speci men Type: BLOOD SPECIMEN Ordering Facility: [facility] Address: [address] [place] [address] Result Comment: The qualitative antinuclear antibody screen test performed using enzyme immunoassay including the following antigens: dsDNA, histones, SS-A, SS-B, Sm, Sm/BR[employer] ASSOCIATE, Scl-70, Camila-1, and centromeric antigens. Performed By: #### 4 7383-5 #### [facility] CLIA [id number] [address] [place] [address] [place] Ambulatory Visit Summaryon 0 10-18-2021 Ambulatory Visit Summary ALYCE DAVID :1955 Visit Date:10/18/2021 Ambulatory Visit Instructions Your Diagnosis Urinary retention UTI (urinary tract infection) BMI 30.0-30.9,adult Your Care Team Attending Physician - Rayo CIFUENTES, Dottie Ellis Primary Care Physician - AYSAH DE PAZ MD This Is Your Medications [...] Dottie Cade MD Where: [facility] Fredo [facility] Formson 10-18-2021 Forms [id number] .00CD:127 [facility] Patient Correspondenceon Patient Correspondence [id number]. 00CD:127 [facility] Patient Educationon 10-19-19 Patient Education Nutrition Calorie [...] You could (more content not included)... Normal [facility] Urology Office/Clinic Noteon 10-18-2021 Urology Office/Clinic Note Chief Complaint [facility] follow up. HPI Staff Alyce is here today as a new patient following up from [facility] ER on 09/25/21. Pt was seen in [...] Pt is here for follow up to [facility] consult due to Urinary Retention on 09/25/2021 [...] w/PVR Patient Education Acute Urinary Retention, Female, Tcaq-vf-[id number] Calorie Counting for Weight Loss I, Shalini Paulson, personally scribed for Dr. Cade on 10/18/2021 08:52:56. . Documentation recorded by the scribeShalini, accurately reflects the services(s) I performed and [...] than 30 days ago Tobacco Use:., 10/18/2021 Normal [facility] Comment on above: Result Comment: Elec tronically Signed By: Dottie Cade MD\.br\Date and Time Signed: 10/18/21 13:24 EDT\.br\Electronically Co-Signed By: Shalini Paulson\.br\Date and Time Co-Signed: 10/18/21 08:53 EDT CBC W Auto Differential pane l (Bld)on 10-16-2021 Basophils (Bld) [#/Vol] 0.10 10*3/uL Normal <0.11 [facility] Comment on above: Order Comment: Speci men Type: BLOOD SPECIMEN Ordering Facility: [facility] Address: [address] [address] Performed By: #### 1 6-0, 58327-8 #### [facility] CLIA [id number] [address] [place] [address] 36142 Basophils/100 WBC (Bld) 1.0 % Normal [facility] Comment on above: Order Comment: Speci men Type: BLOOD SPECIMEN Ordering Facility: [facility] Address: [address] [place] [address] Performed By: #### 1 4195-0, 23701-6 #### [facility] CLIA [id number] [address] [place] [address] 24896 Differential cell count method Nom (Bld) Auto Normal [facility] Comment on above: Order Comment: Speci men Type: BLOOD SPECIMEN Ordering Facility: [facility] Address: [address] [place] [address] Performed By: #### 1 0, 14029-0 #### [facility] CLIA [id number] [address] [place] [address] 53109 Eosinophils (Bld) [#/Vol] 0.52 10*3/uL High <0.46 [facility] Comment on above: Order Comment: Speci men Type: BLOOD SPECIMEN Ordering Facility: [facility] Address: [address] [place] [address] Performed By: #### 1 0, #### [facility] CLIA [id number] [address] [place] [address] 54339 Eosinophils/100 WBC (Bld) 5.2 % Normal [facility] Comment on above: Order Comment: Speci men Type: BLOOD SPECIMEN Ordering Facility: [facility] Address: [address] [place] [address] Performed By: #### 1 4195-0, 66500-6 #### [facility] CLIA [id number] [address] [place] [address] Erythrocyte distribution width (RBC) [Ratio] 14.1 % Normal 11.5-15.0 [facility] Comment on above: Order Comment: Speci men Type: BLOOD SPECIMEN Ordering Facility: [facility] Address: [address] [place] [address] Performed By: #### 1 4196-0, 91500-5 #### [facility] CLIA [id number] [address] [place] [address] 61880 Hematocrit (Bld) [Volume fraction] 31.4 % Low 36.0-46.0 [facility] Comment on above: Order Comment: Speci men Type: BLOOD SPECIMEN Ordering Facility: [facility] Address: [address] [place] [address] Performed By: #### 1 4196-0, 64474-3 #### [facility] CLIA [id number] [address] [place] [address] 90344 Hemoglobin (Bld) [Mass/Vol] 9.9 g/dL Low 11.5-15.5 [facility] Comment on above: Order Comment: Speci men Type: BLOOD SPECIMEN Ordering Facility: [facility] Address: [address] [place] [address] Performed By: #### 1 4196-0, 69976-0 #### [facility] CLIA [id number] [address] [place] [address] 78453 IMMATURE GRAN % 0.7 % Normal [facility] Comment on above: Order Comment: Speci men Type: BLOOD SPECIMEN Ordering Facility: [facility] Address: [address] [place] [address] Performed By: #### 1 4196-0, 10998-7 #### [facility] CLIA [id number] [address] [place] [address] 00495 IMMATURE GRAN ABS 0.07 k/uL Normal <0.10 [facility] Comment on above: Order Comment: Speci men Type: BLOOD SPECIMEN Ordering Facility: [facility] Address: [address] [place] [address] Performed By: #### 1 4196-0, 02960-4 #### [facility] CLIA [id number] [address] [place] [address] 70406 Lymphocytes (Bld) [#/Vol] 1.38 10*3/uL Normal 1.00-4.00 [facility] Comment on above: Order Comment: Speci men Type: BLOOD SPECIMEN Ordering Facility: [facility] Address: [address] [place] [address] Performed By: #### 1 4196-0, 29551-7 #### [facility] CLIA [id number] [address] [place] [address] 84475 Lymphocytes/100 WBC (Bld) 13.9 % Normal [facility] Comment on above: Order Comment: Speci men Type: BLOOD SPECIMEN Ordering Facility: [facility] Address: [address] [place] [address] Performed By: #### 1 4196-0, 27658-0 #### [facility] CLIA [id number] [address] [place] [address] 88211 MCH (RBC) [Entitic mass] 30.1 pg Normal 26.0-34.0 [facility] Comment on above: Order Comment: Speci men Type: BLOOD SPECIMEN Ordering Facility: [facility] Address: [address] [place], [place] [address] Performed By: #### 1 4196-0, 04312-4 #### [facility] CLIA [id number] [address] [place] [address] 51489 MCHC (RBC) [Mass/Vol] 31.5 g/dL Normal 30.5-36.0 [facility] Comment on above: Order Comment: Speci men Type: BLOOD SPECIMEN Ordering Facility: [facility] Address: [address] [place], [place] [address] Performed By: #### 1 4196-0, 38518-7 #### [facility] CLIA [id number] [address] [place] [address] MCV (RBC) [Entitic vol] 95.4 fL Normal 80.0-100.[address] [facility] Comment on above: Order Comment: Speci men Type: BLOOD SPECIMEN Ordering Facility: [facility] Address: [address] [place] [address] Performed By: #### 1 4196-0, 39652-0 #### [facility] CLIA [id number] [address] [place] [address] 95861 Monocytes (Bld) [#/Vol] 0.60 10*3/uL Normal <0.87 [facility] Comment on above: Order Comment: Speci men Type: BLOOD SPECIMEN Ordering Facility: [facility] Address: [address] [place] [address] Performed By: #### 1 4196-0, 33074-4 #### [facility] CLIA [id number] [address] [place] [address] 90889 Monocytes/100 WBC (Bld) 6.0 % Normal C [facility] Comment on above: Order Comment: Speci men Type: BLOOD SPECIMEN Ordering Facility: [facility] Address: [address] [place] [address] Performed By: #### 1 4196-0, 57421-6 #### [facility] CLIA [id number] [address] [place] [address] 15151 Neutrophils (Bld) [#/Vol] 7.27 10*3/uL Normal 1.45-7.50 [facility] Comment on above: Order Comment: Speci men Type: BLOOD SPECIMEN Ordering Facility: [facility] Address: [address] [place] [address] Performed By: #### 1 4196-0, 14468-5 #### [facility] CLIA [id number] [address] [place] [address] 81316 Neutrophils/100 WBC (Bld) 73.2 % Normal [facility] Comment on above: Order Comment: Speci men Type: BLOOD SPECIMEN Ordering Facility: [facility] Address: [address] Performed By: #### 1 4196-0, 82173-4 #### [facility] CLIA [id number] [address] [place] [address] 47270 Nucleated RBC (Bld) [#/Vol] 10*3/uL Normal <0.01 [facility] Comment on above: Order Comment: Speci men Type: BLOOD SPECIMEN Ordering Facility: [facility] Address: [address] Performed By: #### 1 4196-0, 93818-0 #### [facility] CLIA [id number] [address] [place] [address] 64285 Nucleated RBC/100 WBC (Bld) [Ratio] 0.0 /100 WBC Normal [facility] Comment on above: Order Comment: Speci men Type: BLOOD SPECIMEN Ordering Facility: [facility] Address: [address] [place], [place] [address] Performed By: #### 1 4196-0, 65786-3 #### [facility] CLIA [id number] [address] [place] [address] 49895 Platelet mean volume (Bld) [Entitic vol] 9.1 fL Normal 9.0-12.7 [facility] Comment on above: Order Comment: Speci men Type: BLOOD SPECIMEN Ordering Facility: [facility] Address: [address] Performed By: #### 1 4196-0, 71165-3 #### [facility] CLIA [id number] [address] [place] [address] 42575 Platelets (Bld) [#/Vol] 339 10*3/uL Normal 150-400 [facility] Comment on above: Order Comment: Speci men Type: BLOOD SPECIMEN Ordering Facility: [facility] Address: [address] [place], [place] [address] Performed By: #### 1 4196-0, 74252-1 #### [facility] CLIA [id number] [address] [place] [address] 62025 RBC (Bld) [#/Vol] 3.29 10*6/uL Low 3.90-5.20 [facility] Comment on above: Order Comment: Speci men Type: BLOOD SPECIMEN Ordering Facility: [facility] Address: [address] [place] [address] Performed By: #### 1 4196-0, 51336-8 #### [facility] CLIA [id number] [address] [place] [address] 51014 WBC (Bld) [#/Vol] 9.94 10*3/uL Normal 3.70-11.00 [facility] Comment on above: Order Comment: Speci men Type: BLOOD SPECIMEN Ordering Facility: [facility] Address: [address] [place] [address] Performed By: #### 1 4196-0, 95257-2 #### [facility] CLIA [id number] [address] [place] [address] 96068 Abs Immature Gran 0.07 k/uL <0.10 k/uL [facility] Basophils (Bld) [#/Vol] 0.10 10*3/uL <0.11 k/uL [facility] Basophils/100 WBC (Bld) 1.0 % [facility] Differential cell count method Nom (Bld) Auto [facility] Eosinophils (Bld) [#/Vol] 0.52 10*3/uL High <0.46 k/uL [facility] Eosinophils/100 WBC (Bld) 5.2 % [facility] Erythrocyte distribution width (RBC) [Ratio] 14.1 % 11.5 - 15.0 % [facility] Hematocrit (Bld) [Volume fraction] 31.4 % Low 36.0 - 46.0 % [facility] Hemoglobin (Bld) [Mass/Vol] 9.9 g/dL Low 11.5 - 15.5 g/dL [facility] Immature Gran % 0.7 % [facility] Lymphocytes (Bld) [#/Vol] 1.38 10*3/uL 1.00 - 4.00 k/uL [facility] Lymphocytes/100 WBC (Bld) 13.9 % [facility] MCH (RBC) [Entitic mass] 30.1 pg 26.0 - 34.0 pg [facility] MCHC (RBC) [Mass/Vol] 31.5 g/dL 30.5 - 36.0 g/dL [facility] MCV (RBC) [Entitic vol] 95.4 fL 80.0 - 100.0 fL [facility] Monocytes (Bld) [#/Vol] 0.60 10*3/uL <0.87 k/uL [facility] Monocytes/100 WBC (Bld) 6.0 % [facility] Neutrophils (Bld) [#/Vol] 7.27 10*3/uL 1.45 - 7.50 k/uL [facility] Neutrophils/100 WBC (Bld) 73.2 % [facility] Nucleated RBC (Bld) [#/Vol] 10*3/uL <0.01 k/uL [facility] Nucleated RBC/100 WBC (Bld) [Ratio] 0.0 /100 WBC [facility] Platelet mean volume (Bld) [Entitic vol] 9.1 fL 9.0 - 12.7 fL [facility] Platelets (Bld) [#/Vol] 339 10*3/uL 150 - 400 k/uL [facility] RBC (Bld) [#/Vol] 3.29 10*6/uL Low 3.90 - 5.2 0 m/uL [facility] WBC (Bld) [#/Vol] 9.94 10*3/uL 3.70 - 11.00 k/uL [facility] CNOVSPon 10-16-2021 CNOVSP Visit (SP) Office ([place]) ALYCE DAVID ([id number]) 1955 F Date Time Provider Department 10/16/21 [...] evaluation of anemia. Briefly, she presented to [facility] ER with proximal muscle weakness and inability [...] are from cancer. She lives alone in [place], [place] but now has her son for [...] 2 wee (more content not included)... Normal [facility] CRP SerPl-mCncon 10-16-2021 CRP [Mass/Vol] 1.5 mg/dL High <0.9 [facility] Comment on above: Order Comment: Speci men Type: BLOOD SPECIMEN Ordering Facility: [facility] Address: [address] [place] [address] Performed By: #### K LFRS #### [facility] CLIA [id number] [address] [place] [address] [facility] Comprehensive metabolic 2000 panelon 10-16-2021 Albumin [Mass/Vol] 3.9 g/dL Normal 3.9-4.9 [facility] Comment on above: Order Comment: Speci men Type: BLOOD SPECIMEN Ordering Facility: [facility] Address: [address] [place] [address] Performed By: #### 2 4323-8 #### [facility] CLIA [id number] [address] [place] [address] 98345 ALP [Catalytic activity/Vol] 106 U/L Normal 34-123 [facility] Comment on above: Order Comment: Speci men Type: BLOOD SPECIMEN Ordering Facility: [facility] Address: [address] [place] [address] Performed By: #### 2 4323-8 #### [facility] CLIA [id number] [address] [place] [address] 78386 ALT [Catalytic activity/Vol] 15 U/L Normal 7-38 [facility] Comment on above: Order Comment: Speci men Type: BLOOD SPECIMEN Ordering Facility: [facility] Address: [address] [place] [address] Performed By: #### 2 4323-8 #### [facility] CLIA [id number] [address] [place] [address] 77300 Anion gap [Moles/Vol] 10 mmol/L Normal 9-18 [facility] Comment on above: Order Comment: Speci men Type: BLOOD SPECIMEN Ordering Facility: [facility] Address: [address] [place], [place] [address] Performed By: #### 2 4323-8 #### [facility] CLIA [id number] [address] [place] [address] AST [Catalytic activity/Vol] 24 U/L Normal 13-35 [facility] Comment on above: Order Comment: Speci men Type: BLOOD SPECIMEN Ordering Facility: [facility] Address: [address] [place], [place] [address] Performed By: #### 2 4323-8 #### [facility] CLIA [id number] [address] [place] [address] 84466 Bilirubin [Mass/Vol] 0.2 mg/dL Normal 0.2-1.3 [facility] Comment on above: Order Comment: Speci men Type: BLOOD SPECIMEN Ordering Facility: [facility] Address: [address] [place], [place] [address] Performed By: #### 2 4323-8 #### [facility] CLIA [id number] [address] [place] [address] 78470 Calcium [Mass/Vol] 9.8 mg/dL Normal 8.5-10.2 [facility] Comment on above: Order Comment: Speci men Type: BLOOD SPECIMEN Ordering Facility: [facility] Address: [address] [place], [place] [address] Performed By: #### 2 4323-8 #### [facility] CLIA [id number] [address] [place] [address] Chloride [Moles/Vol] 93 mmol/L Low 97-105 [facility] Comment on above: Order Comment: Speci men Type: BLOOD SPECIMEN Ordering Facility: [facility] Address: [address] [place], [place] [address] Performed By: #### 2 4323-8 #### [facility] CLIA [id number] [address] [place] [address] CO2 [Moles/Vol] 31 mmol/L High 22-30 [facility] Comment on above: Order Comment: Speci men Type: BLOOD SPECIMEN Ordering Facility: [facility] Address: [address] [place] [address] Performed By: #### 2 4323-8 #### [facility] CLIA [id number] [address] [place] [address] 87206 Creatinine [Mass/Vol] 0.61 mg/dL Normal 0.58-0.96 [facility] Comment on above: Order Comment: Speci men Type: BLOOD SPECIMEN Ordering Facility: [facility] Address: [address] [place] [address] Performed By: #### 2 4323-8 #### [facility] CLIA [id number] [address] [place] [address] 44544 ESTIMATED GLOMERULAR FILTRATION RATE 98 mL/min/1.73m??? Normal >=60 [facility] Comment on above: Order Comment: Speci men Type: BLOOD SPECIMEN Ordering Facility: [facility] Address: [address] [place] [address] Result Comment: Christelle mated Glomerular Filtration Rate [...] GFR. Performed By: #### 2 4323-8 #### [facility] CLIA [id number] [address] [place] [address] 70042 Glucose [Mass/Vol] 101 mg/dL High 74-99 [facility] Comment on above: Order Comment: Speci men Type: BLOOD SPECIMEN Ordering Facility: [facility] Address: [address] [place] [address] Result Comment: The [place] Diabetes Association (ADA) provides guidance for cutoff [...] Standards of Medical Care in Diabetes 2016, [place] Diabetes Association. Diabetes Care. 2016.39(Suppl 1). Performed By: #### 2 4323-8 #### [facility] CLIA [id number] [address] [place] [address] Potassium [Moles/Vol] 4.2 mmol/L Normal 3.7-5.1 [facility] Comment on above: Order Comment: Speci men Type: BLOOD SPECIMEN Ordering Facility: [facility] Address: [address] [place] [address] Performed By: #### 2 4323-8 #### [facility] CLIA [id number] [address] [place] [address] 80483 Protein [Mass/Vol] 7.2 g/dL Normal 6.3-8.0 [facility] Comment on above: Order Comment: Speci men Type: BLOOD SPECIMEN Ordering Facility: [facility] Address: [address] [address] Performed By: #### 2 4323-8 #### [facility] CLIA [id number] [address] [place] [address] 43316 Sodium [Moles/Vol] 134 mmol/L Low 136-144 [facility] Comment on above: Order Comment: Speci men Type: BLOOD SPECIMEN Ordering Facility: [facility] Address: [address] [address] Performed By: #### 2 4323-8 #### [facility] CLIA [id number] [address] [place] [address] 69164 Urea nitrogen [Mass/Vol] 13 mg/dL Normal 7-21 [facility] Comment on above: Order Comment: Speci men Type: BLOOD SPECIMEN Ordering Facility: [facility] Address: [address] [place] [address] Performed By: #### 2 4323-8 #### [facility] CLIA [id number] [address] [place] [address] Albumin [Mass/Vol] 3.9 g/dL 3.9 - 4.9 g/dL [facility] ALP [Catalytic activity/Vol] 106 U/L 34 - 123 U/L [facility] ALT [Catalytic activity/Vol] 15 U/L 7 - 38 U/L [facility] Anion gap [Moles/Vol] 10 mmol/L 9 - 18 mmol/L [facility] AST [Catalytic activity/Vol] 24 U/L 13 - 35 U/L [facility] Bilirubin [Mass/Vol] 0.2 mg/dL 0.2 - 1 .3 mg/dL [facility] Calcium [Mass/Vol] 9.8 mg/dL 8.5 - 10. 2 mg/dL [facility] Chloride [Moles/Vol] 93 mmol/L Low 97 - 10 5 mmol/L [facility] CO2 [Moles/Vol] 31 mmol/L High 22 - 30 mmol/L [facility] Creatinine [Mass/Vol] 0.61 mg/dL 0.58 - 0.96 mg/dL [facility] Estimated Glomerular Filtration Rate 98 mL/min/1.73m >=60 mL/min/1.73 m [facility] Glucose [Mass/Vol] 101 mg/dL High 74 - 99 mg/dL [facility] Potassium [Moles/Vol] 4.2 mmol/L 3.7 - 5.1 mmol/L [facility] Protein [Mass/Vol] 7.2 g/dL 6.3 - 8.0 g/dL [facility] Sodium [Moles/Vol] 134 mmol/L Low 136 - 144 mmol/L [facility] Urea nitrogen [Mass/Vol] 13 mg/dL 7 - 21 mg/dL [facility] ESR Westergren method (Bld) [Velocity]on 10-16-2021 ESR (Bld) [Velocity] 55 mm/h High 0-20 [facility] Comment on above: Order Comment: Speci men Type: BLOOD SPECIMEN Ordering Facility: [facility] Address: [address] [place] [address] Performed By: #### M PNP #### [facility] CLIA [id number] [address] [place] [address] [place] #### 96615-5 #### [facility] CLIA [id number] [address] [place] [address] 86339 FERRITIN BLDon 10-16-2021 Ferritin [Mass/Vol] 1150.0 ng/mL High 14.7-205.1 [facility] Comment on above: Order Comment: Speci men Type: BLOOD SPECIMEN Ordering Facility: [facility] Address: [address] [place] [address] Performed By: #### K LFRS #### [facility] CLIA [id number] [address] [place] [address] [place] Haptoglob SerPl-mCncon 10-16 Haptoglobin [Mass/Vol] 276 mg/dL High 31-238 [facility] Comment on above: Order Comment: Speci men Type: BLOOD SPECIMEN Ordering Facility: [facility] Address: [address] [place] [place] [address] Performed By: #### K LFRS #### [facility] CLIA [id number] [address] [place] [address] [place] IMMUNOFIXATION SCREEN, SERUM on 10-16-2021 MPA RESULT No M protein is identified. Normal No M protein is identified. [facility] Comment on above: Order Comment: Speci men Type: BLOOD SPECIMEN Ordering Facility: [facility] Address: [address] [place] [address] Performed By: #### M PNP #### [facility] CLIA [id number] [address] [place] [address] [place] #### 90348-2 #### [facility] CLIA [id number] [address] [place] [address] STAFF REVIEW ([facility]) Reviewed by Marie Rebollar MD Normal [facility] Comment on above: Order Comment: Speci men Type: BLOOD SPECIMEN Ordering Facility: [facility] Address: [address] [place] [address] Performed By: #### M PNP #### [facility] CLIA [id number] [address] [place] [address] [place] #### 45965-0 #### [facility] CLIA [id number] [address] [place], [place] [address] IMMUNOGLOBULINS GAMon 2021 IgA [Mass/Vol] 246 mg/dL Normal 70-400 [facility] Comment on above: Order Comment: Speci men Type: BLOOD SPECIMEN Ordering Facility: [facility] Address: [address] [place] [address] Performed By: #### S ERIMM #### [facility] CLIA [id number] [address] [place] [address] [place] IgG [Mass/Vol] 949 mg/dL Normal 700-1,600 [facility] Comment on above: Order Comment: Speci men Type: BLOOD SPECIMEN Ordering Facility: [facility] Address: [address] [place], [place] [address] Performed By: #### S ERIMM #### [facility] CLIA [id number] [address] [place] [address] [place] IgM [Mass/Vol] 103 mg/dL Normal 40-230 [facility] Comment on above: Order Comment: Speci men Type: BLOOD SPECIMEN Ordering Facility: [facility] Address: [address] [place], [place] [address] Performed By: #### S ERIMM #### [facility] CLIA [id number] [address] [place] [address] [place] IRON + TIBCon 10-16-2021 Iron [Mass/Vol] 48 ug/dL Normal 41-186 [facility] Comment on above: Order Comment: Speci men Type: BLOOD SPECIMEN Ordering Facility: [facility] Address: [address] [place] [address] Performed By: #### K LFRS #### [facility] CLIA [id number] [address] [place] [address] [place] Iron binding capacity [Mass/Vol] 310 ug/dL Normal 232-386 [facility] Comment on above: Order Comment: Speci men Type: BLOOD SPECIMEN Ordering Facility: [facility] Address: [address] [place] [address] Performed By: #### K LFRS #### [facility] CLIA [id number] [address] [place] [address] OF [facility] Iron/TIBC [Molar ratio] 15 % Normal 15-[address] [facility] Comment on above: Order Comment: Speci men Type: BLOOD SPECIMEN Ordering Facility: [facility] Address: [address] [place] [address] Performed By: #### K LFRS #### [facility] CLIA [id number] [address] [place] [address] [place] KAPPA/OBRIEN,FREE,SERon 2021 Immunoglobulin light chains.kappa.free (S) [Mass/Vol] 40.6 mg/L High 3.3-19.4 [facility] Comment on above: Order Comment: Speci men Type: BLOOD SPECIMEN Ordering Facility: [facility] Address: [address] [place], [place] [address] Performed By: #### K LFRS #### [facility] CLIA [id number] [address] [place] [address] [place] Immunoglobulin light chains.kappa/Immunoglob ulin light chains.lambda (S) [Mass ratio] 0.99 Normal 0.26-1.65 [facility] Comment on above: Order Comment: Romeo vasquez Type: BLOOD SPECIMEN Ordering Facility: [facility] Address: [address] [place] [address] Performed By: #### K LFRS #### [facility] CLIA [id number] [address] [place] [address] [place] Immunoglobulin light chains.lambda.free [Mass/Vol] 41.0 mg/L High 5.7-26.3 [facility] Comment on above: Order Comment: Romeo vasquez Type: BLOOD SPECIMEN Ordering Facility: [facility] Address: [address] [place] [address] Performed By: #### K LFRS #### [facility] CLIA [id number] [address] [place] [address] [place] PT panel Coag (PPP)on 2021 INR Coag (PPP) [Relative time] 1.1 {INR} Normal 0.9-1.3 [facility] Comment on above: Order Comment: Romeo vasquez Type: BLOOD SPECIMEN Ordering Facility: [facility] Address: [address] [place] [address] Result Comment: Maldonado min K Antagonist (VKA) Therapeutic Range: INR 2 to 3 (Target INR of 2.5) Note: For patients treated with VKA drugs, such as warfarin, the [employer] 2012 Guideline recommends [...] GH, et al. Chest 2012, 141:7S-47S Flower BECKER et al. [facility] 2017, 70: 252-289 Performed By: #### M PNP #### [facility] CLIA [id number] [address] [place] [address] #### 96567-6 #### [facility] CLIA [id number] [address] [place], [place] [address] PT Coag (PPP) [Time] 12.0 s Normal 9.7-13.0 [facility] Comment on above: Order Comment: Speci men Type: BLOOD SPECIMEN Ordering Facility: [facility] Address: [address] [place] [address] Performed By: #### M PNP #### [facility] CLIA [id number] [address] [place] [address] #### 65884-4 #### [facility] CLIA [id number] [address] [place], [place] [address] RETIC COUNTon 10-16-2021 Reticulocytes (Bld) [#/Vol] 0.0001 10*3/uL High 0.018 - 0.100 M/uL [facility] Retics #on 10-16-2021 Reticulocytes (Bld) [#/Vol] 0.0001 10*3/uL High 0.018-0.100 [facility] Comment on above: Order Comment: Speci men Type: BLOOD SPECIMEN Ordering Facility: [facility] Address: [address] [place] [address] Performed By: #### 1 4196-0, 10268-6 #### [facility] CLIA [id number] [address] [place], [place] [address] Reticulocytes (Bld) [#/Vol]o n 10-16-2021 Reticulocytes/100 RBC (Bld) 3.1 % High 0.4-2.0 [facility] Comment on above: Order Comment: Speci men Type: BLOOD SPECIMEN Ordering Facility: [facility] Address: [address] [place] [id number] Performed By: #### 1 4196-0, 76557-5 #### [facility] CLIA [id number] [address] [place] [address] Reticulocytes/100 RBC (Bld) 3.1 % High 0.4 - 2.0 % [facility] VITAMIN B12 BLOODon 10-17-19 Cobalamin (Vitamin B12) [Mass/Vol] 604 pg/mL Normal 232-1,245 [facility] Comment on above: Order Comment: Speci men Type: BLOOD SPECIMEN Ordering Facility: [facility] Address: [address] [place] [address] Performed By: #### M PNP #### [facility] CLIA [id number] [address] [place] [address] [place] #### 92490-6 #### [facility] CLIA [id number] [address] [place] [address] XR CHEST 2V FRONTAL/LATon XR CHEST 2V [...] any questions regarding this interpretation, please call [phone]. If you are unable to reach us at the number above, please feel free to contact [facility] eRadiology at [phone]. [id number] Normal [facility] XR Chest PA and Lateralon IMPRESSION: Mild, diffuse interstitial prominence, without evidence [...] any questions regarding this interpretation, please call [phone]. If you are unable to reach us at the number above, please feel [facility] at [phone]. DIVISION OF RADIOLOGY * * *Final Report* * * DATE OF EXAM: Oct 16 2021 12:01PM NRX [id number] - XR CHEST 2V FRONTAL/LAT / PROCEDURE REASON: Cough * * * * Physician Interpretation * * * * RESULT: EXAMINATION: CHEST RADIOGRAPH (2 VIEW FRONTAL & LATERAL) CLINICAL HISTORY: Cough MQ: XC2_6 EXAM [...] a mid thoracic vertebral body is noted. DIVISION OF RADIOLOGY Provider, [facility] Gerber frederick [place] - 10/16/2021 * * *Final Report* * * DATE OF EXAM: Oct 16 2021 12:01PM NRX [id number] - XR CHEST 2V FRONTAL/LAT / PROCEDURE REASON: Cough * * * * Physician Interpretation * * * * RESULT: EXAMINATION: CHEST RADIOGRAPH (2 VIEW FRONTAL & LATERAL) CLINICAL HISTORY: Cough MQ: XC2_6 EXAM [...] a mid thoracic vertebral body is noted. IMPRESSION IMPRESSION: Mild, diffuse interstitial prominence, without evidence [...] any questions regarding this interpretation, please call [phone]. If you are unable to reach us at the number above, please feel free to contact [facility] eRadiology at [phone]. [facility] Radiology Study observation (narrative) Gabriel Leon XR Chest PA and LateralOrder ed By: [facility] Provider on 10-16-2021 [facility] aPTT PPPon 10-16-2021 aPTT Coag (PPP) [Time] 27.9 s Normal 23.0-32.4 [facility] Comment on above: Order Comment: Speci men Type: BLOOD SPECIMEN Ordering Facility: [facility] Address: [address] [place] [phone] Performed By: #### M PNP #### [facility] CLIA [id number] [address] [place] [place] [id number] [place] #### 34899-0 #### [facility] CLIA [id number] [address] [place], [place] [address] Basic Metabolic Panelon 03- Calcium [Mass/Vol] 9.3 mg/dL Normal 8.2-10.2 [facility] Comment on above: Order Comment: PT IS NON FASTING Comment Results to PCP Performed By: #### C K, ESR, BMP, CRP #### [facility] [address] [place] [address] #### MYOG, ALDOLASE #### [facility] , Chloride [Moles/Vol] 92 mmol/L Low 95-114 [facility] Comment on above: Order Comment: PT IS NON FASTING Comment Results to PCP Performed By: #### C K, ESR, BMP, CRP #### [facility] [address] [place] [address] [place] #### MYOG, ALDOLASE #### [facility] , CO2 [Moles/Vol] 25.3 mmol/L Normal 22.0-30.0 [facility] Comment on above: Order Comment: PT IS NON FASTING Comment Results to PCP Performed By: #### C K, ESR, BMP, CRP #### [facility] [address] [place] [address] [place] #### MYOG, ALDOLASE #### [facility] , Creatinine [Mass/Vol] 0.58 mg/dL Normal 0.44-1.03 [facility] Comment on above: Order Comment: PT IS NON FASTING Comment Results to PCP Performed By: #### C K, ESR, BMP, CRP #### [facility] [address] [place] [address] [place] #### MYOG, ALDOLASE #### [facility] , Estimated GFR ( Radha > 60 Normal [facility] Comment on above: Order Comment: PT IS NON FASTING Comment Results to PCP Result Comment: GFR estimated reference range: According to KDOQI guidelines, <60 ml/min/1.73m2 is sufficient to diagnose a patient with chronic kidney disease. Performed By: #### C K, ESR, BMP, CRP #### [address] #### MYOG, ALDOLASE #### [facility] , Estimated GFR (Non- Am > 60 Normal [facility] Comment on above: Order Comment: PT IS NON FASTING Comment Results to PCP Performed By: #### C K, ESR, BMP, CRP #### [address] #### MYOG, ALDOLASE #### [facility] , Glucose [Mass/Vol] 126 mg/dL High 70-100 [facility] Comment on above: Order Comment: PT IS NON FASTING Comment Results to PCP Result Comment: [place] Glucose Reference Range is dependent on time and content of last meal. Glucose of more than 200 mg/dL in a nonstressed, ambulatory subject supports the diagnosis of Diabetes Mellitus. ADA recommended reference range Performed By: #### C K, ESR, BMP, CRP #### [address] #### MYOG, ALDOLASE #### [facility] , Potassium [Moles/Vol] 3.9 mmol/L Normal 3.5-5.1 [facility] Comment on above: Order Comment: PT IS NON FASTING Comment Results to PCP Performed By: #### C K, ESR, BMP, CRP #### [address] #### MYOG, ALDOLASE #### [facility] , Sodium [Moles/Vol] 131 mmol/L Low 136-146 [facility] Comment on above: Order Comment: PT IS NON FASTING Comment Results to PCP Performed By: #### C K, ESR, BMP, CRP #### [address] #### MYOG, ALDOLASE #### [facility] , Urea nitrogen [Mass/Vol] 11 mg/dL Normal 9-23 [facility] Comment on above: Order Comment: PT IS NON FASTING Comment Results to PCP Performed By: #### C K, ESR, BMP, CRP #### [facility] [address] [place] [address] #### MYOG, ALDOLASE #### [facility] , Complete Blood Count Auto Di ffon 10-09-2021 Basophils (Bld) [#/Vol] 0.0 10*3/uL Normal 0.0-0.2 [facility] Comment on above: Order Comment: Comme nt Results to PCP Result Comment: PERF ORMED BY: [place] [address] PATHOLOGIST SIDE HEMMER IDANIA WHITESIDE M.D. Performed By: #### C K, ESR, BMP, CRP #### [address] #### MYOG, ALDOLASE #### [facility] , Basophils/100 WBC (Bld) 0.7 % Normal . [facility] Comment on above: Order Comment: Comme nt Results to PCP Performed By: #### C K, ESR, BMP, CRP #### [address] #### MYOG, ALDOLASE #### [facility] , Eosinophils (Bld) [#/Vol] 0.4 10*3/uL Normal 0.0-0.45 [facility] Comment on above: Order Comment: Comme nt Results to PCP Performed By: #### C K, ESR, BMP, CRP #### [facility] [address] [place] [address] [place] #### MYOG, ALDOLASE #### [facility] , Eosinophils/100 WBC (Bld) 5.8 % Normal . [facility] Comment on above: Order Comment: Comme nt Results to PCP Performed By: #### C K, ESR, BMP, CRP #### [address] #### MYOG, ALDOLASE #### [facility] , Erythrocyte distribution width (RBC) [Ratio] 15.5 % High 11.9-15.3 [facility] Comment on above: Order Comment: Comme nt Results to PCP Performed By: #### C K, ESR, BMP, CRP #### [address] #### MYOG, ALDOLASE #### [facility] , Hematocrit (Bld) [Volume fraction] 31.3 % Low 34.0-46.4 [facility] Comment on above: Order Comment: Comme nt Results to PCP Performed By: #### C K, ESR, BMP, CRP #### [address] #### MYOG, ALDOLASE #### [facility] , Hemoglobin (Bld) [Mass/Vol] 10.0 g/dL Low 11.8-15.4 [facility] Comment on above: Order Comment: Comme nt Results to PCP Performed By: #### C K, ESR, BMP, CRP #### [address] #### MYOG, ALDOLASE #### [facility] , Lymphocytes (Bld) [#/Vol] 0.9 10*3/uL Low 1.00-4.8 [facility] Comment on above: Order Comment: Comme nt Results to PCP Performed By: #### C K, ESR, BMP, CRP #### [place] [address] [place] #### MYOG, ALDOLASE #### [facility] , Lymphocytes/100 WBC (Bld) 15.5 % Normal . [facility] Comment on above: Order Comment: Comme nt Results to PCP Performed By: #### C K, ESR, BMP, CRP #### [address] #### MYOG, ALDOLASE #### [facility] , MCH (RBC) [Entitic mass] 30.5 pg Normal 24.7-34.3 [facility] Comment on above: Order Comment: Comme nt Results to PCP Performed By: #### C K, ESR, BMP, CRP #### [address] #### MYOG, ALDOLASE #### [facility] , MCV (RBC) [Entitic vol] 95.4 fL Normal 80-100 [facility] Comment on above: Order Comment: Comme nt Results to PCP Performed By: #### C K, ESR, BMP, CRP #### [address] #### MYOG, ALDOLASE #### [facility] , Mean Corpuscular HGB Conc 32.0 g/dL Normal 32.0-35.0 [facility] Comment on above: Order Comment: Comme nt Results to PCP Performed By: #### C K, ESR, BMP, CRP #### [address] #### MYOG, ALDOLASE #### [facility] , Monocytes (Bld) [#/Vol] 0.3 10*3/uL Normal 0.0-0.8 [facility] Comment on above: Order Comment: Comme nt Results to PCP Performed By: #### C K, ESR, BMP, CRP #### [place] [address] [place] #### MYOG, ALDOLASE #### [facility] , Monocytes/100 WBC (Bld) 5.6 % Normal . [facility] Comment on above: Order Comment: Comme nt Results to PCP Performed By: #### C K, ESR, BMP, CRP #### [address] #### MYOG, ALDOLASE #### [facility] , Neutrophils (Bld) [#/Vol] 4.4 10*3/uL Normal 1.8-7.7 [facility] Comment on above: Order Comment: Comme nt Results to PCP Performed By: #### C K, ESR, BMP, CRP #### [address] #### MYOG, ALDOLASE #### [facility] , Neutrophils/100 WBC (Bld) 72.4 % Normal . [facility] Comment on above: Order Comment: Comme nt Results to PCP Performed By: #### C K, ESR, BMP, CRP #### [address] #### MYOG, ALDOLASE #### [facility] , Nucleated RBC/100 WBC (Bld) [Ratio] 0.1 % Normal 0-0.5 [facility] Comment on above: Order Comment: Comme nt Results to PCP Performed By: #### C K, ESR, BMP, CRP #### [address] #### MYOG, ALDOLASE #### [facility] , Platelet mean volume (Bld) [Entitic vol] 7.9 fL Normal 6.3-10.7 [facility] Comment on above: Order Comment: Comme nt Results to PCP Performed By: #### C K, ESR, BMP, CRP #### [facility] [address] [place] [address] [place] #### MYOG, ALDOLASE #### [facility] , Platelets (Bld) [#/Vol] 390 10*3/uL Normal 150-450 [facility] Comment on above: Order Comment: Comme nt Results to PCP Performed By: #### C K, ESR, BMP, CRP #### [address] #### MYOG, ALDOLASE #### [facility] , RBC (Bld) [#/Vol] 3.28 10*6/uL Low 3.60-5.00 [facility] Comment on above: Order Comment: Comme nt Results to PCP Performed By: #### C K, ESR, BMP, CRP #### [address] #### MYOG, ALDOLASE #### [facility] , WBC (Bld) [#/Vol] 6.1 10*3/uL Normal 4.5-11.0 [facility] Comment on above: Order Comment: Comme nt Results to PCP Performed By: #### C K, ESR, BMP, CRP #### [address] #### MYOG, ALDOLASE #### [facility] , Magnesiumon 10-09-2021 Magnesium [Mass/Vol] 1.3 mg/dL Low 1.6-2.6 [facility] Comment on above: Order Comment: PT IS NON FASTING Comment Results to PCP Result Comment: PERF ORMED BY: [place] [address] PATHOLOGIST SIDE HEMMER IDANIA WHITESIDE M.D. Performed By: #### C K, ESR, BMP, CRP #### [address] #### MYOG, ALDOLASE #### [facility] , Complete Blood Count Auto Di ffon 09-30-2021 Basophils (Bld) [#/Vol] 0.1 10*3/uL Normal 0.0-0.2 [facility] Comment on above: Result Comment: PERF ORMED BY: [place] [address] PATHOLOGIST SIDE HEMMER IDANIA WHITESIDE M.D. Performed By: #### C K, ESR, BMP, CRP #### [facility] [address] [place] [address] [place] #### MYOG, ALDOLASE #### [facility] , Basophils/100 WBC (Bld) 1.0 % Normal . [facility] Comment on above: Performed By: #### C K, ESR, BMP, CRP #### [facility] [address] [place] [address] [place] #### MYOG, ALDOLASE #### [facility] , Eosinophils (Bld) [#/Vol] 0.1 10*3/uL Normal 0.0-0.45 [facility] Comment on above: Performed By: #### C K, ESR, BMP, CRP #### [address] #### MYOG, ALDOLASE #### [facility] , Eosinophils/100 WBC (Bld) 1.3 % Normal . [facility] Comment on above: Performed By: #### C K, ESR, BMP, CRP #### [place] [address] [place] #### MYOG, ALDOLASE #### [facility] , Erythrocyte distribution width (RBC) [Ratio] 15.0 % Normal 11.9-15.3 [facility] Comment on above: Performed By: #### C K, ESR, BMP, CRP #### [place] [address] [place] #### MYOG, ALDOLASE #### [facility] , Hematocrit (Bld) [Volume fraction] 30.5 % Low 34.0-46.4 [facility] Comment on above: Performed By: #### C K, ESR, BMP, CRP #### [place] [address] [place] #### MYOG, ALDOLASE #### [facility] , Hemoglobin (Bld) [Mass/Vol] 9.7 g/dL Low 11.8-15.4 [facility] Comment on above: Performed By: #### C K, ESR, BMP, CRP #### [place] [address] [place] #### MYOG, ALDOLASE #### [facility] , Lymphocytes (Bld) [#/Vol] 0.8 10*3/uL Low 1.00-4.8 [facility] Comment on above: Performed By: #### C K, ESR, BMP, CRP #### [place] [address] [place] #### MYOG, ALDOLASE #### [facility] , Lymphocytes/100 WBC (Bld) 11.5 % Normal . [facility] Comment on above: Performed By: #### C K, ESR, BMP, CRP #### [address] #### MYOG, ALDOLASE #### [facility] , MCH (RBC) [Entitic mass] 30.2 pg Normal 24.7-34.3 [facility] Comment on above: Performed By: #### C K, ESR, BMP, CRP #### [address] #### MYOG, ALDOLASE #### [facility] , MCV (RBC) [Entitic vol] 94.6 fL Normal 80-100 F [facility] Comment on above: Performed By: #### C K, ESR, BMP, CRP #### [place] [address] [place] #### MYOG, ALDOLASE #### [facility] , Mean Corpuscular HGB Conc 31.9 g/dL Low 32.0-35.0 [facility] Comment on above: Performed By: #### C K, ESR, BMP, CRP #### [place] [address] [place] #### MYOG, ALDOLASE #### [facility] , Monocytes (Bld) [#/Vol] 0.6 10*3/uL Normal 0.0-0.8 [facility] Comment on above: Performed By: #### C K, ESR, BMP, CRP #### [facility] [address] [place] [address] [place] #### MYOG, ALDOLASE #### [facility] , Monocytes/100 WBC (Bld) 8.5 % Normal . [facility] Comment on above: Performed By: #### C K, ESR, BMP, CRP #### [place] [address] [place] #### MYOG, ALDOLASE #### [facility] , Neutrophils (Bld) [#/Vol] 5.7 10*3/uL Normal 1.8-7.7 [facility] Comment on above: Performed By: #### C K, ESR, BMP, CRP #### [place] [address] [place] #### MYOG, ALDOLASE #### [facility] , Neutrophils/100 WBC (Bld) 77.7 % Normal . [facility] Comment on above: Performed By: #### C K, ESR, BMP, CRP #### [place] [address] [place] #### MYOG, ALDOLASE #### [facility] , Nucleated RBC/100 WBC (Bld) [Ratio] 0.0 % Normal 0-0.5 [facility] Comment on above: Performed By: #### C K, ESR, BMP, CRP #### [facility] [address] [place] [address] [place] #### MYOG, ALDOLASE #### [facility] , Platelet mean volume (Bld) [Entitic vol] 7.4 fL Normal 6.3-10.7 [facility] Comment on above: Performed By: #### C K, ESR, BMP, CRP #### [facility] [address] [place] [address] [place] #### MYOG, ALDOLASE #### [facility] , Platelets (Bld) [#/Vol] 251 10*3/uL Normal 150-450 [facility] Comment on above: Performed By: #### C K, ESR, BMP, CRP #### [facility] [address] [place] [address] [place] #### MYOG, ALDOLASE #### [facility] , RBC (Bld) [#/Vol] 3.23 10*6/uL Low 3.60-5.00 [facility] Comment on above: Performed By: #### C K, ESR, BMP, CRP #### [address] #### MYOG, ALDOLASE #### [facility] , WBC (Bld) [#/Vol] 7.3 10*3/uL Normal 4.5-11.0 [facility] Comment on above: Performed By: #### C K, ESR, BMP, CRP #### [facility] [address] [place] [address] [place] #### MYOG, ALDOLASE #### [facility] , Comprehensive Metabolic Pane huber 09-30-2021 Albumin [Mass/Vol] 2.6 g/dL Low 3.2-5.5 [facility] Comment on above: Performed By: #### C K, ESR, BMP, CRP #### [facility] [address] [place] [address] [place] #### MYOG, ALDOLASE #### [facility] , Albumin/Globulin [Mass ratio] 0.7 {ratio} Normal [facility] Comment on above: Performed By: #### C K, ESR, BMP, CRP #### [place] [address] [place] #### MYOG, ALDOLASE #### [facility] , ALP [Catalytic activity/Vol] 82 U/L Normal 32-92 [facility] Comment on above: Performed By: #### C K, ESR, BMP, CRP #### [facility] [address] [place] [address] #### MYOG, ALDOLASE #### [facility] , ALT [Catalytic activity/Vol] 21 U/L Normal 10-60 [facility] Comment on above: Performed By: #### C K, ESR, BMP, CRP #### [facility] [address] [place] [address] #### MYOG, ALDOLASE #### [facility] , AST [Catalytic activity/Vol] 38 U/L Normal 10-42 [facility] Comment on above: Performed By: #### C K, ESR, BMP, CRP #### [facility] [address] [place] [address] [place] #### MYOG, ALDOLASE #### [facility] , Bilirubin [Mass/Vol] 0.5 mg/dL Normal 0.3-1.2 [facility] Comment on above: Performed By: #### C K, ESR, BMP, CRP #### [address] #### MYOG, ALDOLASE #### [facility] , Calcium [Mass/Vol] 8.5 mg/dL Normal 8.2-10.2 [facility] Comment on above: Performed By: #### C K, ESR, BMP, CRP #### [facility] [address] [place] [address] [place] #### MYOG, ALDOLASE #### [facility] , Chloride [Moles/Vol] 95 mmol/L Normal 95-114 [facility] Comment on above: Performed By: #### C K, ESR, BMP, CRP #### [facility] [address] [place] [address] [place] #### MYOG, ALDOLASE #### [facility] , CO2 [Moles/Vol] 22.4 mmol/L Normal 22.0-30.0 [facility] Comment on above: Performed By: #### C K, ESR, BMP, CRP #### [facility] [address] [place] [address] #### MYOG, ALDOLASE #### [facility] , Creatinine [Mass/Vol] 0.45 mg/dL Normal 0.44-1.03 [facility] Comment on above: Performed By: #### C K, ESR, BMP, CRP #### [address] #### MYOG, ALDOLASE #### [facility] , Creatinine Clr Calc Pharmacy 69.79 [facility] Comment on above: Performed By: #### C K, ESR, BMP, CRP #### [address] #### MYOG, ALDOLASE #### [facility] , Estimated GFR ( Radha > 60 [facility] Comment on above: Result Comment: GFR estimated reference range: According to KDOQI guidelines, <60 ml/min/1.73m2 is sufficient to diagnose a patient with chronic kidney disease. Performed By: #### C K, ESR, BMP, CRP #### [facility] [address] [place] [address] [place] #### MYOG, ALDOLASE #### [facility] , Estimated GFR (Non- Am > 60 [facility] Comment on above: Performed By: #### C K, ESR, BMP, CRP #### [facility] [address] [place] [address] [place] #### MYOG, ALDOLASE #### [facility] , Globulin (S) [Mass/Vol] 3.5 g/dL Normal [facility] Comment on above: Performed By: #### C K, ESR, BMP, CRP #### [place] [address] [place] #### MYOG, ALDOLASE #### [facility] , Glucose [Mass/Vol] 97 mg/dL Normal 70-100 [facility] Comment on above: Result Comment: [place] Glucose Reference Range is dependent on time and content of last meal. Glucose of more than 200 mg/dL in a nonstressed, ambulatory subject supports the diagnosis of Diabetes Mellitus. ADA recommended reference range Performed By: #### C K, ESR, BMP, CRP #### [place] [address] [place] #### MYOG, ALDOLASE #### [facility] , Potassium [Moles/Vol] 4.5 mmol/L Normal 3.5-5.1 [facility] Comment on above: Performed By: #### C K, ESR, BMP, CRP #### [place] [address] [place] #### MYOG, ALDOLASE #### [facility] , Protein [Mass/Vol] 6.1 g/dL Normal 6.1-7.9 [facility] Comment on above: Performed By: #### C K, ESR, BMP, CRP #### [place] [address] [place] #### MYOG, ALDOLASE #### [facility] , Sodium [Moles/Vol] 126 mmol/L Low 136-146 [facility] Comment on above: Performed By: #### C K, ESR, BMP, CRP #### [place] [address] [place] #### MYOG, ALDOLASE #### [facility] , Urea nitrogen [Mass/Vol] 6 mg/dL Low 9-23 [facility] Comment on above: Performed By: #### C K, ESR, BMP, CRP #### [address] #### MYOG, ALDOLASE #### [facility] , Magnesiumon 09-30-2021 Magnesium [Mass/Vol] 0.9 mg/dL Off scale low 1.6-2.6 [facility] Comment on above: Result Comment: Crit ical value result called at 0826 on 09/30/21 PERFORMED BY: [place] [address] PATHOLOGIST SIDE HEMMER IDANIA WHITESIDE M.D. Performed By: #### C K, ESR, BMP, CRP #### [address] #### MYOG, ALDOLASE #### [facility] , Basic Metabolic Panelon 09-18 Calcium [Mass/Vol] 8.1 mg/dL Low 8.2-10.2 [facility] Comment on above: Performed By: #### C K, ESR, BMP, CRP #### [address] #### MYOG, ALDOLASE #### [facility] , Chloride [Moles/Vol] 94 mmol/L Low 95-114 [facility] Comment on above: Performed By: #### C K, ESR, BMP, CRP #### [place] [address] [place] #### MYOG, ALDOLASE #### [facility] , CO2 [Moles/Vol] 22.9 mmol/L Normal 22.0-30.0 [facility] Comment on above: Performed By: #### C K, ESR, BMP, CRP #### [place] [address] [place] #### MYOG, ALDOLASE #### [facility] , Creatinine [Mass/Vol] 0.55 mg/dL Normal 0.44-1.03 [facility] Comment on above: Performed By: #### C K, ESR, BMP, CRP #### [facility] [address] [place] [address] [place] #### MYOG, ALDOLASE #### [facility] , Creatinine Clr Calc Pharmacy 71.49 [facility] Comment on above: Performed By: #### C K, ESR, BMP, CRP #### [facility] [address] [place] [address] [place] #### MYOG, ALDOLASE #### [facility] , Estimated GFR ( Radha > 60 [facility] Comment on above: Result Comment: GFR estimated reference range: According to KDOQI guidelines, <60 ml/min/1.73m2 is sufficient to diagnose a patient with chronic kidney disease. Performed By: #### C K, ESR, BMP, CRP #### [place] [address] [place] #### MYOG, ALDOLASE #### [facility] , Estimated GFR (Non- Am > 60 [facility] Comment on above: Performed By: #### C K, ESR, BMP, CRP #### [facility] [address] [place] [address] [place] #### MYOG, ALDOLASE #### [facility] , Glucose [Mass/Vol] 138 mg/dL High 70-100 [facility] Comment on above: Result Comment: [place] om Glucose Reference Range is dependent on time and content of last meal. Glucose of more than 200 mg/dL in a nonstressed, ambulatory subject supports the diagnosis of Diabetes Mellitus. ADA recommended reference range Performed By: #### C K, ESR, BMP, CRP #### [facility] [address] [place] [address] [place] #### MYOG, ALDOLASE #### [facility] , Potassium [Moles/Vol] 4.5 mmol/L Normal 3.5-5.1 [facility] Comment on above: Performed By: #### C K, ESR, BMP, CRP #### [address] #### MYOG, ALDOLASE #### [facility] , Sodium [Moles/Vol] 126 mmol/L Low 136-146 [facility] Comment on above: Performed By: #### C K, ESR, BMP, CRP #### [place] [address] [place] #### MYOG, ALDOLASE #### [facility] , Urea nitrogen [Mass/Vol] 6 mg/dL Low 9-23 [facility] Comment on above: Performed By: #### C K, ESR, BMP, CRP #### [address] #### MYOG, ALDOLASE #### [facility] , Complete Blood Count Auto Di ffon 09-29-2021 Basophils (Bld) [#/Vol] 0.1 10*3/uL Normal 0.0-0.2 [facility] Comment on above: Result Comment: PERF ORMED BY: [place] [address] PATHOLOGIST SIDE HEMMER IDANIA WHITESIDE M.D. Performed By: #### C K, ESR, BMP, CRP #### [address] #### MYOG, ALDOLASE #### [facility] , Basophils/100 WBC (Bld) 1.1 % Normal . [facility] Comment on above: Performed By: #### C K, ESR, BMP, CRP #### [place] [address] [place] #### MYOG, ALDOLASE #### [facility] , Eosinophils (Bld) [#/Vol] 0.1 10*3/uL Normal 0.0-0.45 [facility] Comment on above: Performed By: #### C K, ESR, BMP, CRP #### [address] #### MYOG, ALDOLASE #### [facility] , Eosinophils/100 WBC (Bld) 1.5 % Normal . [facility] Comment on above: Performed By: #### C K, ESR, BMP, CRP #### [address] #### MYOG, ALDOLASE #### [facility] , Erythrocyte distribution width (RBC) [Ratio] 15.2 % Normal 11.9-15.3 [facility] Comment on above: Performed By: #### C K, ESR, BMP, CRP #### [address] #### MYOG, ALDOLASE #### [facility] , Hematocrit (Bld) [Volume fraction] 29.6 % Low 34.0-46.4 [facility] Comment on above: Performed By: #### C K, ESR, BMP, CRP #### [address] #### MYOG, ALDOLASE #### [facility] , Hemoglobin (Bld) [Mass/Vol] 9.7 g/dL Low 11.8-15.4 [facility] Comment on above: Performed By: #### C K, ESR, BMP, CRP #### [place] [address] [place] #### MYOG, ALDOLASE #### [facility] , Lymphocytes (Bld) [#/Vol] 0.6 10*3/uL Low 1.00-4.8 [facility] Comment on above: Performed By: #### C K, ESR, BMP, CRP #### [place] [address] [place] #### MYOG, ALDOLASE #### [facility] , Lymphocytes/100 WBC (Bld) 8.2 % Normal . [facility] Comment on above: Performed By: #### C K, ESR, BMP, CRP #### [facility] [address] [place] [address] [place] #### MYOG, ALDOLASE #### [facility] , MCH (RBC) [Entitic mass] 30.9 pg Normal 24.7-34.3 [facility] Comment on above: Performed By: #### C K, ESR, BMP, CRP #### [facility] [address] [place] [address] [place] #### MYOG, ALDOLASE #### [facility] , MCV (RBC) [Entitic vol] 94.2 fL Normal 80-100 [facility] Comment on above: Performed By: #### C K, ESR, BMP, CRP #### [address] #### MYOG, ALDOLASE #### [facility] , Mean Corpuscular HGB Conc 32.8 g/dL Normal 32.0-35.0 [facility] Comment on above: Performed By: #### C K, ESR, BMP, CRP #### [facility] [address] [place] [address] #### MYOG, ALDOLASE #### [facility] , Monocytes (Bld) [#/Vol] 0.4 10*3/uL Normal 0.0-0.8 [facility] Comment on above: Performed By: #### C K, ESR, BMP, CRP #### [place] [address] [place] #### MYOG, ALDOLASE #### [facility] , Monocytes/100 WBC (Bld) 5.2 % Normal . [facility] Comment on above: Performed By: #### C K, ESR, BMP, CRP #### [place] [address] [place] #### MYOG, ALDOLASE #### [facility] , Neutrophils (Bld) [#/Vol] 5.8 10*3/uL Normal 1.8-7.7 [facility] Comment on above: Performed By: #### C K, ESR, BMP, CRP #### [address] #### MYOG, ALDOLASE #### [facility] , Neutrophils/100 WBC (Bld) 84.0 % Normal . [facility] Comment on above: Performed By: #### C K, ESR, BMP, CRP #### [address] #### MYOG, ALDOLASE #### [facility] , Nucleated RBC/100 WBC (Bld) [Ratio] 0.1 % Normal 0-0.5 [facility] Comment on above: Performed By: #### C K, ESR, BMP, CRP #### [address] #### MYOG, ALDOLASE #### [facility] , Platelet mean volume (Bld) [Entitic vol] 7.7 fL Normal 6.3-10.7 [facility] Comment on above: Performed By: #### C K, ESR, BMP, CRP #### [address] #### MYOG, ALDOLASE #### [facility] , Platelets (Bld) [#/Vol] 239 10*3/uL Normal 150-450 [facility] Comment on above: Performed By: #### C K, ESR, BMP, CRP #### [facility] [address] [place] [address] [place] #### MYOG, ALDOLASE #### [facility] , RBC (Bld) [#/Vol] 3.15 10*6/uL Low 3.60-5.00 [facility] Comment on above: Performed By: #### C K, ESR, BMP, CRP #### [facility] [address] [place] [address] #### MYOG, ALDOLASE #### [facility] , WBC (Bld) [#/Vol] 6.9 10*3/uL Normal 4.5-11.0 [facility] Comment on above: Performed By: #### C K, ESR, BMP, CRP #### [facility] [address] [place] [address] #### MYOG, ALDOLASE #### [facility] , Magnesiumon 09-29-2021 Magnesium [Mass/Vol] 1.3 mg/dL Low 1.6-2.6 [facility] Comment on above: Result Comment: PERF ORMED BY: [place] [address] PATHOLOGIST SIDE HEMMER IDANIA WHITESIDE M.D. Performed By: #### C K, ESR, BMP, CRP #### [address] #### MYOG, ALDOLASE #### [facility] , Partial Thromboplastin Timeo n 09-29-2021 aPTT Coag (Bld) [Time] 44.5 s High 25.1-36.5 [facility] Comment on above: Result Comment: PERF ORMED BY: [place] [address] PATHOLOGIST SIDE HEMMER IDANIA WHITESIDE M.D. Performed By: #### C K, ESR, BMP, CRP #### [address] #### MYOG, ALDOLASE #### [facility] , Prothrombin Time INRon 09-29 INR Coag (PPP) [Relative time] 1.6 {INR} Normal [facility] Comment on above: Result Comment: INR Therapeutic [...] #### C K, ESR, BMP, CRP #### [address] #### MYOG, ALDOLASE #### [facility] , PT Coag (PPP) [Time] 17.7 s High 9.0-12.9 [facility] Comment on above: Performed By: #### C K, ESR, BMP, CRP #### [address] #### MYOG, ALDOLASE #### [facility] , Stool Occult Blood (Guaiac)o n 09-29-2021 Stool Occult Blood (Guaiac) Occult Blood Negative for Occult Blood by Guaiac Methodology Reference range = Negative PERFORMED BY: [place] [address] PATHOLOGIST SIDE HEMMER IDANIA WHITESIDE M.D. Normal [facility] Comment on above: Performed By: #### T SH3 wRFLX, T4F, LIPID, [id number] #### [address] Complete Blood Count Auto Di ffon 09-28-2021 Basophils (Bld) [#/Vol] 0.1 10*3/uL Normal 0.0-0.2 [facility] Comment on above: Result Comment: PERF ORMED BY: [place] [address] PATHOLOGIST SIDE HEMMER IDANIA WHITESIDE M.D. Performed By: #### T SH3 wRFLX, T4F, LIPID, [id number] #### [address] Basophils/100 WBC (Bld) 0.9 % Normal . [facility] Comment on above: Performed By: #### T SH3 wRFLX, T4F, LIPID, [id number] #### [address] Eosinophils (Bld) [#/Vol] 0.2 10*3/uL Normal 0.0-0.45 [facility] Comment on above: Performed By: #### T SH3 wRFLX, T4F, LIPID, [id number] #### [address] Eosinophils/100 WBC (Bld) 2.4 % Normal . [facility] Comment on above: Performed By: #### T SH3 wRFLX, T4F, LIPID, [id number] #### [address] Erythrocyte distribution width (RBC) [Ratio] 15.5 % High 11.9-15.3 [facility] Comment on above: Performed By: #### T SH3 wRFLX, T4F, LIPID, [id number] #### [address] Hematocrit (Bld) [Volume fraction] 27.3 % Low 34.0-46.4 [facility] Comment on above: Performed By: #### T SH3 wRFLX, T4F, LIPID, [id number] #### [address] Hemoglobin (Bld) [Mass/Vol] 8.9 g/dL Low 11.8-15.4 [facility] Comment on above: Performed By: #### T SH3 wRFLX, T4F, LIPID, [id number] #### [address] Lymphocytes (Bld) [#/Vol] 1.0 10*3/uL Normal 1.00-4.8 [facility] Comment on above: Performed By: #### T SH3 wRFLX, T4F, LIPID, [id number] #### [address] Lymphocytes/100 WBC (Bld) 15.3 % Normal . [facility] Comment on above: Performed By: #### T SH3 wRFLX, T4F, LIPID, [id number] #### [address] MCH (RBC) [Entitic mass] 30.9 pg Normal 24.7-34.3 [facility] Comment on above: Performed By: #### T SH3 wRFLX, T4F, LIPID, [id number] #### [address] MCV (RBC) [Entitic vol] 94.9 fL Normal 80-100 [facility] Comment on above: Performed By: #### T SH3 wRFLX, T4F, LIPID, [id number] #### [address] Mean Corpuscular HGB Conc 32.6 g/dL Normal 32.0-35.0 [facility] Comment on above: Performed By: #### T SH3 wRFLX, T4F, LIPID, [id number] #### [address] Monocytes (Bld) [#/Vol] 0.5 10*3/uL Normal 0.0-0.8 [facility] Comment on above: Performed By: #### T SH3 wRFLX, T4F, LIPID, [id number] #### [address] Monocytes/100 WBC (Bld) 8.6 % Normal . [facility] Comment on above: Performed By: #### T SH3 wRFLX, T4F, LIPID, [id number] #### [address] Neutrophils (Bld) [#/Vol] 4.6 10*3/uL Normal 1.8-7.7 [facility] Comment on above: Performed By: #### T SH3 wRFLX, T4F, LIPID, [id number] #### [facility] [address] Neutrophils/100 WBC (Bld) 72.8 % Normal . [facility] Comment on above: Performed By: #### T SH3 wRFLX, T4F, LIPID, [id number] #### [facility] [address] Nucleated RBC/100 WBC (Bld) [Ratio] 0.1 % Normal 0-0.5 [facility] Comment on above: Performed By: #### T SH3 wRFLX, T4F, LIPID, [id number] #### [facility] [address] Platelet mean volume (Bld) [Entitic vol] 7.4 fL Normal 6.3-10.7 [facility] Comment on above: Performed By: #### T SH3 wRFLX, T4F, LIPID, [id number] #### [address] Platelets (Bld) [#/Vol] 227 10*3/uL Normal 150-450 [facility] Comment on above: Performed By: #### T SH3 wRFLX, T4F, LIPID, [id number] #### [address] RBC (Bld) [#/Vol] 2.88 10*6/uL Low 3.60-5.00 [facility] Comment on above: Performed By: #### T SH3 wRFLX, T4F, LIPID, [id number] #### [address] WBC (Bld) [#/Vol] 6.3 10*3/uL Normal 4.5-11.0 [facility] Comment on above: Performed By: #### T SH3 wRFLX, T4F, LIPID, [id number] #### [address] Comprehensive Metabolic Pane huber 09-28-2021 Albumin [Mass/Vol] 2.4 g/dL Low 3.2-5.5 [facility] Comment on above: Performed By: #### T SH3 wRFLX, T4F, LIPID, [id number] #### [facility] [address] Albumin/Globulin [Mass ratio] 0.8 {ratio} Normal [facility] Comment on above: Performed By: #### T SH3 wRFLX, T4F, LIPID, [id number] #### [facility] [address] ALP [Catalytic activity/Vol] 89 U/L Normal 32-92 [facility] Comment on above: Performed By: #### T SH3 wRFLX, T4F, LIPID, [id number] #### [address] ALT [Catalytic activity/Vol] 21 U/L Normal 10-60 [facility] Comment on above: Performed By: #### T SH3 wRFLX, T4F, LIPID, [id number] #### [facility] [address] [place] [address] AST [Catalytic activity/Vol] 36 U/L Normal 10-42 [facility] Comment on above: Performed By: #### T SH3 wRFLX, T4F, LIPID, [id number] #### [facility] [address] [place] [address] Bilirubin [Mass/Vol] 0.6 mg/dL Normal 0.3-1.2 [facility] Comment on above: Performed By: #### T SH3 wRFLX, T4F, LIPID, [id number] #### [facility] [address] [place] [address] [place] Calcium [Mass/Vol] 7.2 mg/dL Low 8.2-10.2 [facility] Comment on above: Performed By: #### T SH3 wRFLX, T4F, LIPID, [id number] #### [facility] [address] [place] [address] Chloride [Moles/Vol] 91 mmol/L Low 95-114 [facility] Comment on above: Performed By: #### T SH3 wRFLX, T4F, LIPID, [id number] #### [facility] [address] CO2 [Moles/Vol] 26.6 mmol/L Normal 22.0-30.0 [facility] Comment on above: Performed By: #### T SH3 wRFLX, T4F, LIPID, [id number] #### [facility] [address] Creatinine [Mass/Vol] 0.62 mg/dL Normal 0.44-1.03 [facility] Comment on above: Performed By: #### T SH3 wRFLX, T4F, LIPID, [id number] #### [address] Creatinine Clr Calc Pharmacy 70.25 [facility] Comment on above: Performed By: #### T SH3 wRFLX, T4F, LIPID, [id number] #### [address] Estimated GFR ( Radha > 60 [facility] Comment on above: Result Comment: GFR estimated reference range: According to KDOQI guidelines, <60 ml/min/1.73m2 is sufficient to diagnose a patient with chronic kidney disease. Performed By: #### T SH3 wRFLX, T4F, LIPID, [id number] #### [address] Estimated GFR (Non- Am > 60 [facility] Comment on above: Performed By: #### T SH3 wRFLX, T4F, LIPID, [id number] #### [address] Globulin (S) [Mass/Vol] 3.2 g/dL Normal [facility] Comment on above: Performed By: #### T SH3 wRFLX, T4F, LIPID, [id number] #### [address] Glucose [Mass/Vol] 90 mg/dL Normal 70-100 [facility] Comment on above: Result Comment: Deyanira gonzalez Glucose Reference Range is dependent on time and content of last meal. Glucose of more than 200 mg/dL in a nonstressed, ambulatory subject supports the diagnosis of Diabetes Mellitus. ADA recommended reference range Performed By: #### T SH3 wRFLX, T4F, LIPID, [id number] #### [facility] [address] Potassium [Moles/Vol] 3.8 mmol/L Normal 3.5-5.1 [facility] Comment on above: Performed By: #### T SH3 wRFLX, T4F, LIPID, [id number] #### [facility] [address] Protein [Mass/Vol] 5.6 g/dL Low 6.1-7.9 [facility] Comment on above: Performed By: #### T SH3 wRFLX, T4F, LIPID, [id number] #### [facility] [address] Sodium [Moles/Vol] 129 mmol/L Low 136-146 [facility] Comment on above: Performed By: #### T SH3 wRFLX, T4F, LIPID, [id number] #### [facility] [address] Urea nitrogen [Mass/Vol] 12 mg/dL Normal 9-23 [facility] Comment on above: Performed By: #### T SH3 wRFLX, T4F, LIPID, [id number] #### [facility] [address] Consultation Noteon 09-29-19 Consultation Note [id number]#1 .00CD:127 Normal [facility] ED Note-Physicianon 09-29-19 ED Note-Physician [id number] .00CD:127 Normal [facility] Insurance Correspondence Off iceon 09-28-2021 Insurance Correspondence Office [id number]#1 .00CD:127 Normal [facility] Magnesiumon 09-28-2021 Magnesium [Mass/Vol] 0.9 mg/dL Off scale low 1.6-2.6 [facility] Comment on above: Result Comment: Resu lts called at 0632 on 09/28/21 Performed By: #### T SH3 wRFLX, T4F, LIPID, [id number] #### [facility] [address] [place] [id number] [facility] RAD - CT Reporton 09-28-2021 RAD - CT Report [id number]#1 .00CD:127 Normal [facility] Thyroid Stimulating Hormoneo n 09-28-2021 TSH Qn 9.77 m[IU]/L High 0.45-5.33 [facility] Comment on above: Performed By: #### T SH3 wRFLX, T4F, LIPID, [id number] #### [facility] [address] [place] [id number] [facility] Vitamin D 25 Hydroxy Totalon 09-28-2021 Vitamin D 25 Hydroxy Total < 7.0 Low 30-100 [facility] Comment on above: Result Comment: [place] MIN D STATUS 25(OH)VITAMIN D RANGE (ng/mL) Deficient <20 Insufficient 20 to <30 Sufficient 30 to 100 Reference: Bandar MF,Cara NC, Marissa NICHOLAS, et al. Evaluation,treatment, and prevention of vitamin D deficiency; an Endocrine Society clinical practice guideline. JCEM. 2010; 96(7):1911-30. PERFORMED BY: [place] [id number] PATHOLOGIST SIDE HEMMER IDANIA WHITESIDE M.D. Performed By: #### T SH3 wRFLX, T4F, LIPID, [id number] #### [facility] [address] [place], [place] [id number] [facility] A1C with Estimated Average G luon 09-27-2021 Glucose [Mass/Vol] 111 mg/dL Normal [facility] Comment on above: Order Comment: Comme nt please add on Result Comment: PERF ORMED BY: [place] [address] PATHOLOGIST SIDE HEMMER IDANIA WHITESIDE M.D. Performed By: #### C K, ESR, BMP, CRP #### [address] #### MYOG, ALDOLASE #### [facility] , HbA1c (Bld) [Mass fraction] 5.5 % Normal 4.3-5.6 [facility] Comment on above: Order Comment: Comme nt please add on Result Comment: Incr eased risk for diabetes: 5.7 - 6.4 diabetes: >6.4 glycemic control for adults with diabetes: <7.0 Performed By: #### C K, ESR, BMP, CRP #### [address] #### MYOG, ALDOLASE #### [facility] , Cell Count Differential,CSFo n 09-27-2021 Appearance, CSF Clear Normal Clear [facility] Comment on above: Order Comment: Comme nt Tube 1 Performed By: #### C K, ESR, BMP, CRP #### [address] #### MYOG, ALDOLASE #### [facility] , Order Comment: Comme nt Tube 3 Color, CSF Colorless Normal Colorless [facility] Comment on above: Order Comment: Comme nt Tube 1 Performed By: #### C K, ESR, BMP, CRP #### [place] [address] [place] #### MYOG, ALDOLASE #### [facility] , Order Comment: Comme nt Tube 3 CSF Supernatant Color Colorless Normal Colorless [facility] Comment on above: Order Comment: Comme nt Tube 1 Performed By: #### C K, ESR, BMP, CRP #### [place] [address] [place] #### MYOG, ALDOLASE #### [facility] , Order Comment: Comme nt Tube 3 CSF Volume, Total 13.0 mL Normal [facility] Comment on above: Order Comment: Comme nt Tube 1 Performed By: #### C K, ESR, BMP, CRP #### [facility] [address] [place] [address] #### MYOG, ALDOLASE #### [facility] , Order Comment: Comme nt Tube 3 RBC, CSF 7 /uL [facility] Comment on above: Order Comment: Comme nt Tube 1 Result Comment: The reference interval and other method performance specifications have not been established for this body fluid. The test result must be integrated into the clinical context for interpretation. Performed By: #### C K, ESR, BMP, CRP #### [address] #### MYOG, ALDOLASE #### [facility] , TNC, CSF 0 /uL Normal 0-5 [facility] Comment on above: Order Comment: Comme nt Tube 1 Performed By: #### C K, ESR, BMP, CRP #### [facility] [address] [place] [address] #### MYOG, ALDOLASE #### [facility] , Order Comment: Comme nt Tube 3 Tube Number Tested, CSF Tube Number: 1 [facility] Comment on above: Order Comment: Comme nt Tube 1 Result Comment: PERF ORMED BY: [place] [address] PATHOLOGIST SIDE HEMMER IDANIA WHITESIDE M.D. Performed By: #### C K, ESR, BMP, CRP #### [facility] [address] [place] [address] #### MYOG, ALDOLASE #### [facility] , Cell Count Differential,CSF #2on 09-27-2021 RBC, CSF 0 /uL [facility] Comment on above: Order Comment: Comme nt Tube 3 Result Comment: The reference interval and other method performance specifications have not been established for this body fluid. The test result must be integrated into the clinical context for interpretation. Performed By: #### C K, ESR, BMP, CRP #### [address] #### MYOG, ALDOLASE #### [facility] , Tube Number Tested, CSF Tube Number: 3 Normal [facility] Comment on above: Order Comment: Comme nt Tube 3 Result Comment: PERF ORMED BY: [place] [address] PATHOLOGIST SIDE HEMMER IDANIA WHITESIDE M.D. Performed By: #### C K, ESR, BMP, CRP #### [address] #### MYOG, ALDOLASE #### [facility] , Complete Blood Count Auto Di ffon 09-27-2021 Basophils (Bld) [#/Vol] 0.0 10*3/uL Normal 0.0-0.2 [facility] Comment on above: Result Comment: PERF ORMED BY: [place] [address] PATHOLOGIST SIDE HEMMER IDANIA WHITESIDE M.D. Performed By: #### C K, ESR, BMP, CRP #### [address] #### MYOG, ALDOLASE #### [facility] , Basophils/100 WBC (Bld) 0.7 % Normal . [facility] Comment on above: Performed By: #### C K, ESR, BMP, CRP #### [place] [address] [place] #### MYOG, ALDOLASE #### [facility] , Eosinophils (Bld) [#/Vol] 0.1 10*3/uL Normal 0.0-0.45 [facility] Comment on above: Performed By: #### C K, ESR, BMP, CRP #### [facility] [address] #### MYOG, ALDOLASE #### [facility] , Eosinophils/100 WBC (Bld) 2.5 % Normal . [facility] Comment on above: Performed By: #### C K, ESR, BMP, CRP #### [address] #### MYOG, ALDOLASE #### [facility] , Erythrocyte distribution width (RBC) [Ratio] 15.4 % High 11.9-15.3 [facility] Comment on above: Performed By: #### C K, ESR, BMP, CRP #### [address] #### MYOG, ALDOLASE #### [facility] , Hematocrit (Bld) [Volume fraction] 28.7 % Low 34.0-46.4 [facility] Comment on above: Performed By: #### C K, ESR, BMP, CRP #### [address] #### MYOG, ALDOLASE #### [facility] , Hemoglobin (Bld) [Mass/Vol] 9.3 g/dL Low 11.8-15.4 [facility] Comment on above: Performed By: #### C K, ESR, BMP, CRP #### [place] [address] [place] #### MYOG, ALDOLASE #### [facility] , Lymphocytes (Bld) [#/Vol] 0.9 10*3/uL Low 1.00-4.8 [facility] Comment on above: Performed By: #### C K, ESR, BMP, CRP #### [place] [address] [place] #### MYOG, ALDOLASE #### [facility] , Lymphocytes/100 WBC (Bld) 15.7 % Normal . [facility] Comment on above: Performed By: #### C K, ESR, BMP, CRP #### [place] [address] [place] #### MYOG, ALDOLASE #### [facility] , MCH (RBC) [Entitic mass] 31.1 pg Normal 24.7-34.3 [facility] Comment on above: Performed By: #### C K, ESR, BMP, CRP #### [facility] [address] [place] [address] [place] #### MYOG, ALDOLASE #### [facility] , MCV (RBC) [Entitic vol] 95.8 fL Normal 80-100 F [facility] Comment on above: Performed By: #### C K, ESR, BMP, CRP #### [address] #### MYOG, ALDOLASE #### [facility] , Mean Corpuscular HGB Conc 32.5 g/dL Normal 32.0-35.0 [facility] Comment on above: Performed By: #### C K, ESR, BMP, CRP #### [facility] [address] [place] [address] #### MYOG, ALDOLASE #### [facility] , Monocytes (Bld) [#/Vol] 0.5 10*3/uL Normal 0.0-0.8 [facility] Comment on above: Performed By: #### C K, ESR, BMP, CRP #### [place] [address] [place] #### MYOG, ALDOLASE #### [facility] , Monocytes/100 WBC (Bld) 9.6 % Normal . [facility] Comment on above: Performed By: #### C K, ESR, BMP, CRP #### [place] [address] [place] #### MYOG, ALDOLASE #### [facility] , Neutrophils (Bld) [#/Vol] 4.0 10*3/uL Normal 1.8-7.7 [facility] Comment on above: Performed By: #### C K, ESR, BMP, CRP #### [address] #### MYOG, ALDOLASE #### [facility] , Neutrophils/100 WBC (Bld) 71.5 % Normal . [facility] Comment on above: Performed By: #### C K, ESR, BMP, CRP #### [address] #### MYOG, ALDOLASE #### [facility] , Nucleated RBC/100 WBC (Bld) [Ratio] 0.1 % Normal 0-0.5 [facility] Comment on above: Performed By: #### C K, ESR, BMP, CRP #### [address] #### MYOG, ALDOLASE #### [facility] , Platelet mean volume (Bld) [Entitic vol] 7.7 fL Normal 6.3-10.7 [facility] Comment on above: Performed By: #### C K, ESR, BMP, CRP #### [address] #### MYOG, ALDOLASE #### [facility] , Platelets (Bld) [#/Vol] 261 10*3/uL Normal 150-450 [facility] Comment on above: Performed By: #### C K, ESR, BMP, CRP #### [place] [address] [place] #### MYOG, ALDOLASE #### [facility] , RBC (Bld) [#/Vol] 2.99 10*6/uL Low 3.60-5.00 [facility] Comment on above: Performed By: #### C K, ESR, BMP, CRP #### [facility] [address] [place] [address] [place] #### MYOG, ALDOLASE #### [facility] , WBC (Bld) [#/Vol] 5.6 10*3/uL Normal 4.5-11.0 [facility] Comment on above: Performed By: #### C K, ESR, BMP, CRP #### [facility] [address] [place] [address] [place] #### MYOG, ALDOLASE #### [facility] , Comprehensive Metabolic Pane huber 09-27-2021 Albumin [Mass/Vol] 2.5 g/dL Low 3.2-5.5 [facility] Comment on above: Performed By: #### C K, ESR, BMP, CRP #### [address] #### MYOG, ALDOLASE #### [facility] , Albumin/Globulin [Mass ratio] 0.8 {ratio} Normal [facility] Comment on above: Performed By: #### C K, ESR, BMP, CRP #### [facility] [address] [place] [address] [place] #### MYOG, ALDOLASE #### [facility] , ALP [Catalytic activity/Vol] 99 U/L High 32-92 [facility] Comment on above: Performed By: #### C K, ESR, BMP, CRP #### [facility] [address] [place] [address] [place] #### MYOG, ALDOLASE #### [facility] , ALT [Catalytic activity/Vol] 25 U/L Normal 10-60 [facility] Comment on above: Performed By: #### C K, ESR, BMP, CRP #### [facility] [address] [place] [address] [place] #### MYOG, ALDOLASE #### [facility] , AST [Catalytic activity/Vol] 40 U/L Normal 10-42 [facility] Comment on above: Performed By: #### C K, ESR, BMP, CRP #### [facility] [address] [place] [address] [place] #### MYOG, ALDOLASE #### [facility] , Bilirubin [Mass/Vol] 0.7 mg/dL Normal 0.3-1.2 [facility] Comment on above: Performed By: #### C K, ESR, BMP, CRP #### [address] #### MYOG, ALDOLASE #### [facility] , Calcium [Mass/Vol] 7.3 mg/dL Low 8.2-10.2 [facility] Comment on above: Performed By: #### C K, ESR, BMP, CRP #### [place] [address] [place] #### MYOG, ALDOLASE #### [facility] , Chloride [Moles/Vol] 92 mmol/L Low 95-114 [facility] Comment on above: Performed By: #### C K, ESR, BMP, CRP #### [facility] [address] [place] [address] [place] #### MYOG, ALDOLASE #### [facility] , CO2 [Moles/Vol] 32.3 mmol/L High 22.0-30.0 [facility] Comment on above: Performed By: #### C K, ESR, BMP, CRP #### [place] [address] [place] #### MYOG, ALDOLASE #### [facility] , Creatinine [Mass/Vol] 0.81 mg/dL Normal 0.44-1.03 [facility] Comment on above: Performed By: #### C K, ESR, BMP, CRP #### [facility] [address] [place] [address] [place] #### MYOG, ALDOLASE #### [facility] , Creatinine Clr Calc Pharmacy 68.76 [facility] Comment on above: Performed By: #### C K, ESR, BMP, CRP #### [place] [address] [place] #### MYOG, ALDOLASE #### [facility] , Estimated GFR ( Radha > 60 [facility] Comment on above: Result Comment: GFR estimated reference range: According to KDOQI guidelines, <60 ml/min/1.73m2 is sufficient to diagnose a patient with chronic kidney disease. Performed By: #### C K, ESR, BMP, CRP #### [address] #### MYOG, ALDOLASE #### [facility] , Estimated GFR (Non- Am > 60 [facility] Comment on above: Performed By: #### C K, ESR, BMP, CRP #### [address] #### MYOG, ALDOLASE #### [facility] , Globulin (S) [Mass/Vol] 3.3 g/dL Normal [facility] Comment on above: Performed By: #### C K, ESR, BMP, CRP #### [address] #### MYOG, ALDOLASE #### [facility] , Glucose [Mass/Vol] 114 mg/dL High 70-100 [facility] Comment on above: Result Comment: [place] om Glucose Reference Range is dependent on time and content of last meal. Glucose of more than 200 mg/dL in a nonstressed, ambulatory subject supports the diagnosis of Diabetes Mellitus. ADA recommended reference range Performed By: #### C K, ESR, BMP, CRP #### [place] [address] [place] #### MYOG, ALDOLASE #### [facility] , Potassium [Moles/Vol] 3.6 mmol/L Normal 3.5-5.1 [facility] Comment on above: Performed By: #### C K, ESR, BMP, CRP #### [place] [address] [place] #### MYOG, ALDOLASE #### [facility] , Protein [Mass/Vol] 5.8 g/dL Low 6.1-7.9 [facility] Comment on above: Performed By: #### C K, ESR, BMP, CRP #### [place] [address] [place] #### MYOG, ALDOLASE #### [facility] , Sodium [Moles/Vol] 133 mmol/L Low 136-146 [facility] Comment on above: Performed By: #### C K, ESR, BMP, CRP #### [facility] [address] [place] [address] [place] #### MYOG, ALDOLASE #### [facility] , Urea nitrogen [Mass/Vol] 30 mg/dL High 9-23 [facility] Comment on above: Performed By: #### C K, ESR, BMP, CRP #### [place] [address] [place] #### MYOG, ALDOLASE #### [facility] , FL guided lumbar puncture LP on 09-27-2021 FL guided lumbar puncture LP [facility] [place] [address] [place] [address] Fluoroscopy Report Signed Patient: Alyce David MR#: [id number] : 1955 Acct:[id number] Age/Sex: 66 / F ADM Date: 09/25/21 Loc: Room: 6K7882-3 Type: ADM IN Attending Dr: Matthew Laird DO Ordering Provider: LUIS Faye Date of Service: 09/27/21 FL/FL guided lumbar puncture LP: BLE weakness, ? GBS/CIDP Copies to: Emi Garcia, LUIS Laird, Fluoroscopic-guided lumbar puncture 09/27/2021. CLINICAL DATA: Bilateral [...] Serrano Jr., M.D.09/27/2021 2:19 PM Dictation Location: [place] [address] Transcribed By: [facility] 09/27/21 141 Dictated By: Tyree Serrano Jr, MD 09/27/211416 Signed By: 09/27/21 141 Normal [facility] Glucose, CSF #2on 09-27-2021 Glucose, CSF #2 61 mg/dL Normal 40-70 [facility] Comment on above: Order Comment: Comme nt Tube 3 Performed By: #### C K, ESR, BMP, CRP #### [facility] [address] [place] [address] [place] #### MYOG, ALDOLASE #### [facility] , Glucose, Spinal Fluidon 09-18 Glucose, Spinal Fluid 60 mg/dL Normal 40-70 [facility] Comment on above: Order Comment: Comme nt Tube 1 Performed By: #### C K, ESR, BMP, CRP #### [facility] [address] [place] [address] [place] #### MYOG, ALDOLASE #### [facility] , Huber 09-27-2021 L - -------- Specimen: [id number] Received: 10/01/21 Status: KIRSTIN Gutiérrez Num: [id number] Spec Type: Cytology Subm Dr: Zach,Tyree Hinkle Jr, MD Tissues: A CSF (CSF) Procedures: Pap Stain, ZHEN-DIFF, CYTOPREPCSF -------- Patient Age/Sex Location Account Attending Physician -------- Alyce David 66/F 4N [id number] Matthew Laird DO -------- SPEC NUM: [id number] RECD: 10/01/21 STATUS: KIRSTIN GUTIÉRREZ NUM: [id number] ISABELA: 09/27/[address]: Tyree Serrano Jr, MD ENTERED: 10/01/[address] [facility] [address]: SPEC TYPE: Cytology DEPT: [facility] ENTERED BY: [id number] RECV BY: [id number] ORDERED: Pap Stain, ZHEN-DIFF, CYTOPREPCSF ORDERED: Pap Stain, ZHEN-DIFF, CYTOPREPCSF Pathological Diagnosis Cerebrospinal fluid, cytospin cytology: - Paucicellular specimen with no malignant cells identified. Clinical Information BLE weakness; lumbar puncture Gross Description Received is 3 ml of colorless clear unfixed fluid said to have been obtained as CSF. ThinPrep is prepared for microscopic examination. (LenoreJ/mook) Microscopic Description One Papanicolaou stained cytospin slide and one Giemsa Balderrama stained cytospin slide have been examined. Microscopic findings support the above diagnosis. CPT Codes 74103 -------- -------- Specimen: [id number] Received: 10/01/21 Status: KIRSTIN Gutiérrez Num: [id number] Spec Type: Cytology Subm Dr: Tyree Serrano Jr, MD Tissues: A CSF (CSF) Procedures: Pap Stain, ZHEN-DIFF, CYTOPREPCSF -------- Patient: Alyce David [id number] (Continued) -------- Signed (signature on file) Matthew Negro MD 10/01/21 1542 [facility] MR lumbar spine wo conon MR lumbar spine wo [facility] [place] [address] MRI Report Signed Patient: Alyce David MR#: [id number] : 1955 Acct:[id number] Age/Sex: 66 / F ADM Date: 09/25/21 Loc: Room: [address] [place] [address] Type: ADM IN Attending Dr: Matthew Laird [...] Serrano Jr., M.D.09/27/2021 10:18 AM Dictation Location: [place] [address] Transcribed By: [facility] 09/27/21 1018 Dictated By: Tyree Serrano Jr, MD 09/27/21 1010 Signed By: 09/27/21 1018 Normal [facility] Magnesiumon 09-27-2021 Magnesium [Mass/Vol] 1.5 mg/dL Low 1.6-2.6 [facility] Comment on above: Result Comment: PERF ORMED BY: [place] [address] PATHOLOGIST SIDE HEMMER IDANIA WHITESIDE M.D. Performed By: #### C K, ESR, BMP, CRP #### [facility] [address] [place] [address] #### MYOG, ALDOLASE #### [facility] , Phosphoruson 09-27-2021 Phosphate [Mass/Vol] 3.1 mg/dL Normal 2.5-4.6 [facility] Comment on above: Performed By: #### C K, ESR, BMP, CRP #### [facility] [address] [place] [address] #### MYOG, ALDOLASE #### [facility] , Total Protein, CSF #2on 09-18-2021 Total Protein, CSF #2 55 mg/dL High 15-45 [facility] Comment on above: Order Comment: Comme nt Tube 3 Result Comment: PERF ORMED BY: [place] [address] PATHOLOGIST SIDE HEMMER IDANIA WHITESIDE M.D. Performed By: #### C K, ESR, BMP, CRP #### [address] #### MYOG, ALDOLASE #### [facility] , Total Protein, Spinal Fluido n 09-27-2021 Total Protein, Spinal Fluid 55 mg/dL High 15-45 [facility] Comment on above: Order Comment: Comme nt Tube 1 Result Comment: PERF ORMED BY: [place] [address] PATHOLOGIST SIDE HEMMER IDANIA WHITESIDE M.D. Performed By: #### C K, ESR, BMP, CRP #### [address] #### MYOG, ALDOLASE #### [facility] , XR chest 2V*on 09-27-2021 XR chest 2V* [facility] [place] [address] [place] [address] XRay Report Signed Patient: Alyce David MR#: [id number] : 1955 Acct:[id number] Age/Sex: 66 / F ADM Date: 09/25/21 Loc: Room: [address] [place] [address] Type: ADM IN Attending Dr: Matthew Laird [...] CONTRAST. Impression dictated by: Lang Garcia Jr., D.O.09/27/2021 4:00 PM Dictation Location: [place] [address] Transcribed By: [facility] 09/27/21 1600 Dictated By: Lang Garcia Jr, DO 09/27/21 1558 Signed By: 09/27/21 1600 Normal [facility] Aldolaseon 09-26-2021 Aldolase 5.1 U/L Normal 3.3-10.3 [facility] Comment on above: Result Comment: Perf ormed at: CB - [facility] [address] [id number] [employer] Processing Equipment Mechanic: Rhys Rivera PhD, Phone: [phone] PERFORMED BY: [place] [address] PATHOLOGIST SIDE HEMMER IDANIA WHITESIDE M.D. Performed By: #### C K, ESR, BMP, CRP #### [address] #### MYOG, ALDOLASE #### [facility] , Basic Metabolic Panelon Calcium [Mass/Vol] 7.5 mg/dL Low 8.2-10.2 [facility] Comment on above: Performed By: #### C K, ESR, BMP, CRP #### [address] #### MYOG, ALDOLASE #### [facility] , Chloride [Moles/Vol] 90 mmol/L Low 95-114 [facility] Comment on above: Performed By: #### C K, ESR, BMP, CRP #### [facility] [address] [place] [address] [place] #### MYOG, ALDOLASE #### [facility] , CO2 [Moles/Vol] 33.0 mmol/L High 22.0-30.0 [facility] Comment on above: Performed By: #### C K, ESR, BMP, CRP #### [facility] [address] [place] [address] [place] #### MYOG, ALDOLASE #### [facility] , Creatinine [Mass/Vol] 0.99 mg/dL Normal 0.44-1.03 [facility] Comment on above: Performed By: #### C K, ESR, BMP, CRP #### [facility] [address] [place] [address] [place] #### MYOG, ALDOLASE #### [facility] , Creatinine Clr Calc Pharmacy 56.25 [facility] Comment on above: Performed By: #### C K, ESR, BMP, CRP #### [facility] [address] [place] [address] [place] #### MYOG, ALDOLASE #### [facility] , Estimated GFR ( Radha > 60 [facility] Comment on above: Result Comment: GFR estimated reference range: According to KDOQI guidelines, <60 ml/min/1.73m2 is sufficient to diagnose a patient with chronic kidney disease. Performed By: #### C K, ESR, BMP, CRP #### [place] [address] [place] #### MYOG, ALDOLASE #### [facility] , Estimated GFR (Non- Am 56 [facility] Comment on above: Performed By: #### C K, ESR, BMP, CRP #### [place] [address] [place] #### MYOG, ALDOLASE #### [facility] , Glucose [Mass/Vol] 120 mg/dL High 70-100 [facility] Comment on above: Result Comment: [place] om Glucose Reference Range is dependent on time and content of last meal. Glucose of more than 200 mg/dL in a nonstressed, ambulatory subject supports the diagnosis of Diabetes Mellitus. ADA recommended reference range Performed By: #### C K, ESR, BMP, CRP #### [place] [address] [place] #### MYOG, ALDOLASE #### [facility] , Potassium [Moles/Vol] 3.3 mmol/L Low 3.5-5.1 [facility] Comment on above: Performed By: #### C K, ESR, BMP, CRP #### [facility] [address] [place] [address] #### MYOG, ALDOLASE #### [facility] , Sodium [Moles/Vol] 135 mmol/L Low 136-146 [facility] Comment on above: Performed By: #### C K, ESR, BMP, CRP #### [facility] [address] [place] [address] [place] #### MYOG, ALDOLASE #### [facility] , Urea nitrogen [Mass/Vol] 40 mg/dL High 9-23 [facility] Comment on above: Performed By: #### C K, ESR, BMP, CRP #### [address] #### MYOG, ALDOLASE #### [facility] , Calcium [Mass/Vol] 7.5 mg/dL Low 8.2-10.2 [facility] Comment on above: Performed By: #### C K, ESR, BMP, CRP #### [facility] [address] [place] [address] [place] #### MYOG, ALDOLASE #### [facility] , Chloride [Moles/Vol] 86 mmol/L Low 95-114 [facility] Comment on above: Performed By: #### C K, ESR, BMP, CRP #### [facility] [address] [place] [address] [place] #### MYOG, ALDOLASE #### [facility] , CO2 [Moles/Vol] 33.1 mmol/L High 22.0-30.0 [facility] Comment on above: Performed By: #### C K, ESR, BMP, CRP #### [facility] [address] [place] [address] [place] #### MYOG, ALDOLASE #### [facility] , Creatinine [Mass/Vol] 1.31 mg/dL High 0.44-1.03 [facility] Comment on above: Performed By: #### C K, ESR, BMP, CRP #### [place] [address] [place] #### MYOG, ALDOLASE #### [facility] , Creatinine Clr Calc Pharmacy 42.85 [facility] Comment on above: Result Comment: PERF ORMED BY: [place] [address] PATHOLOGIST SIDE HEMMER IDANIA WHITESIDE M.D. Performed By: #### C K, ESR, BMP, CRP #### [address] #### MYOG, ALDOLASE #### [facility] , Estimated GFR ( Radha 49 [facility] Comment on above: Result Comment: GFR estimated reference range: According to KDOQI guidelines, <60 ml/min/1.73m2 is sufficient to diagnose a patient with chronic kidney disease. Performed By: #### C K, ESR, BMP, CRP #### [address] #### MYOG, ALDOLASE #### [facility] , Estimated GFR (Non- Am 40 [facility] Comment on above: Performed By: #### C K, ESR, BMP, CRP #### [place] [address] [place] #### MYOG, ALDOLASE #### [facility] , Glucose [Mass/Vol] 141 mg/dL High 70-100 [facility] Comment on above: Result Comment: [place] om Glucose Reference Range is dependent on time and content of last meal. Glucose of more than 200 mg/dL in a nonstressed, ambulatory subject supports the diagnosis of Diabetes Mellitus. ADA recommended reference range Performed By: #### C K, ESR, BMP, CRP #### [facility] [address] [place] [address] [place] #### MYOG, ALDOLASE #### [facility] , Potassium [Moles/Vol] 2.8 mmol/L Off scale low 3.5-5.1 [facility] Comment on above: Result Comment: Resu lts called at 2341 on 09/25/21 Performed By: #### C K, ESR, BMP, CRP #### [address] #### MYOG, ALDOLASE #### [facility] , Sodium [Moles/Vol] 133 mmol/L Low 136-146 [facility] Comment on above: Performed By: #### C K, ESR, BMP, CRP #### [facility] [address] [place] [address] #### MYOG, ALDOLASE #### [facility] , Urea nitrogen [Mass/Vol] 51 mg/dL High 9-23 [facility] Comment on above: Performed By: #### C K, ESR, BMP, CRP #### [address] #### MYOG, ALDOLASE #### [facility] , C-Reactive Proteinon 022 C-Reactive Protein 4.1 mg/dL High 0.0-1.0 [facility] Comment on above: Result Comment: PERF ORMED BY: [place] [address] PATHOLOGIST SIDE HEMMER IDANIA WHITESIDE M.D. Performed By: #### C K, ESR, BMP, CRP #### [place] [address] [place] #### MYOG, ALDOLASE #### [facility] , Complete Blood Count Auto Di ffon 09-26-2021 Basophils (Bld) [#/Vol] 0.0 10*3/uL Normal 0.0-0.2 [facility] Comment on above: Result Comment: PERF ORMED BY: [place] [address] PATHOLOGIST SIDE HEMMER IDANIA WHITESIDE M.D. Performed By: #### C K, ESR, BMP, CRP #### [address] #### MYOG, ALDOLASE #### [facility] , Basophils/100 WBC (Bld) 0.3 % Normal . [facility] Comment on above: Performed By: #### C K, ESR, BMP, CRP #### [address] #### MYOG, ALDOLASE #### [facility] , Eosinophils (Bld) [#/Vol] 0.1 10*3/uL Normal 0.0-0.45 [facility] Comment on above: Performed By: #### C K, ESR, BMP, CRP #### [address] #### MYOG, ALDOLASE #### [facility] , Eosinophils/100 WBC (Bld) 1.8 % Normal . [facility] Comment on above: Performed By: #### C K, ESR, BMP, CRP #### [address] #### MYOG, ALDOLASE #### [facility] , Erythrocyte distribution width (RBC) [Ratio] 15.1 % Normal 11.9-15.3 [facility] Comment on above: Performed By: #### C K, ESR, BMP, CRP #### [address] #### MYOG, ALDOLASE #### [facility] , Hematocrit (Bld) [Volume fraction] 28.3 % Low 34.0-46.4 [facility] Comment on above: Performed By: #### C K, ESR, BMP, CRP #### [place] [address] [place] #### MYOG, ALDOLASE #### [facility] , Hemoglobin (Bld) [Mass/Vol] 9.3 g/dL Low 11.8-15.4 [facility] Comment on above: Performed By: #### C K, ESR, BMP, CRP #### [place] [address] [place] #### MYOG, ALDOLASE #### [facility] , Lymphocytes (Bld) [#/Vol] 0.7 10*3/uL Low 1.00-4.8 [facility] Comment on above: Performed By: #### C K, ESR, BMP, CRP #### [place] [address] [place] #### MYOG, ALDOLASE #### [facility] , Lymphocytes/100 WBC (Bld) 10.6 % Normal . [facility] Comment on above: Performed By: #### C K, ESR, BMP, CRP #### [place] [address] [place] #### MYOG, ALDOLASE #### [facility] , MCH (RBC) [Entitic mass] 30.8 pg Normal 24.7-34.3 [facility] Comment on above: Performed By: #### C K, ESR, BMP, CRP #### [place] [address] [place] #### MYOG, ALDOLASE #### [facility] , MCV (RBC) [Entitic vol] 93.9 fL Normal 80-100 F [facility] Comment on above: Performed By: #### C K, ESR, BMP, CRP #### [place] [address] [place] #### MYOG, ALDOLASE #### [facility] , Mean Corpuscular HGB Conc 32.8 g/dL Normal 32.0-35.0 [facility] Comment on above: Performed By: #### C K, ESR, BMP, CRP #### [address] #### MYOG, ALDOLASE #### [facility] , Monocytes (Bld) [#/Vol] 0.7 10*3/uL Normal 0.0-0.8 [facility] Comment on above: Performed By: #### C K, ESR, BMP, CRP #### [place] [address] [place] #### MYOG, ALDOLASE #### [facility] , Monocytes/100 WBC (Bld) 9.8 % Normal . [facility] Comment on above: Performed By: #### C K, ESR, BMP, CRP #### [place] [address] [place] #### MYOG, ALDOLASE #### [facility] , Neutrophils (Bld) [#/Vol] 5.5 10*3/uL Normal 1.8-7.7 [facility] Comment on above: Performed By: #### C K, ESR, BMP, CRP #### [place] [address] [place] #### MYOG, ALDOLASE #### [facility] , Neutrophils/100 WBC (Bld) 77.5 % Normal . [facility] Comment on above: Performed By: #### C K, ESR, BMP, CRP #### [facility] [address] [place] [address] [place] #### MYOG, ALDOLASE #### [facility] , Nucleated RBC/100 WBC (Bld) [Ratio] 0.1 % Normal 0-0.5 [facility] Comment on above: Performed By: #### C K, ESR, BMP, CRP #### [facility] [address] [place] [address] [place] #### MYOG, ALDOLASE #### [facility] , Platelet mean volume (Bld) [Entitic vol] 7.7 fL Normal 6.3-10.7 [facility] Comment on above: Performed By: #### C K, ESR, BMP, CRP #### [facility] [address] [place] [address] [place] #### MYOG, ALDOLASE #### [facility] , Platelets (Bld) [#/Vol] 274 10*3/uL Normal 150-450 [facility] Comment on above: Performed By: #### C K, ESR, BMP, CRP #### [address] #### MYOG, ALDOLASE #### [facility] , RBC (Bld) [#/Vol] 3.02 10*6/uL Low 3.60-5.00 [facility] Comment on above: Performed By: #### C K, ESR, BMP, CRP #### [facility] [address] [place] [address] [place] #### MYOG, ALDOLASE #### [facility] , WBC (Bld) [#/Vol] 7.0 10*3/uL Normal 4.5-11.0 [facility] Comment on above: Performed By: #### C K, ESR, BMP, CRP #### [place] [address] [place] #### MYOG, ALDOLASE #### [facility] , Comprehensive Metabolic Pane huber 09-26-2021 Albumin [Mass/Vol] 2.5 g/dL Low 3.2-5.5 [facility] Comment on above: Performed By: #### C K, ESR, BMP, CRP #### [place] [address] [place] #### MYOG, ALDOLASE #### [facility] , Albumin/Globulin [Mass ratio] 0.8 {ratio} Normal [facility] Comment on above: Performed By: #### C K, ESR, BMP, CRP #### [facility] [address] [place] [address] #### MYOG, ALDOLASE #### [facility] , ALP [Catalytic activity/Vol] 89 U/L Normal 32-92 [facility] Comment on above: Performed By: #### C K, ESR, BMP, CRP #### [facility] [address] [place] [address] #### MYOG, ALDOLASE #### [facility] , ALT [Catalytic activity/Vol] 25 U/L Normal 10-60 [facility] Comment on above: Performed By: #### C K, ESR, BMP, CRP #### [facility] [address] [place] [address] #### MYOG, ALDOLASE #### [facility] , AST [Catalytic activity/Vol] 46 U/L High 10-42 [facility] Comment on above: Performed By: #### C K, ESR, BMP, CRP #### [address] #### MYOG, ALDOLASE #### [facility] , Bilirubin [Mass/Vol] 0.8 mg/dL Normal 0.3-1.2 [facility] Comment on above: Performed By: #### C K, ESR, BMP, CRP #### [facility] [address] [place] [address] [place] #### MYOG, ALDOLASE #### [facility] , Calcium [Mass/Vol] 7.5 mg/dL Low 8.2-10.2 [facility] Comment on above: Performed By: #### C K, ESR, BMP, CRP #### [facility] [address] [place] [address] [place] #### MYOG, ALDOLASE #### [facility] , Chloride [Moles/Vol] 89 mmol/L Low 95-114 [facility] Comment on above: Performed By: #### C K, ESR, BMP, CRP #### [facility] [address] [place] [address] #### MYOG, ALDOLASE #### [facility] , CO2 [Moles/Vol] 32.0 mmol/L High 22.0-30.0 [facility] Comment on above: Performed By: #### C K, ESR, BMP, CRP #### [facility] [address] [place] [address] #### MYOG, ALDOLASE #### [facility] , Creatinine [Mass/Vol] 1.16 mg/dL High 0.44-1.03 [facility] Comment on above: Performed By: #### C K, ESR, BMP, CRP #### [facility] [address] [place] [address] #### MYOG, ALDOLASE #### [facility] , Creatinine Clr Calc Pharmacy 48.01 [facility] Comment on above: Performed By: #### C K, ESR, BMP, CRP #### [facility] [address] [place] [address] [place] #### MYOG, ALDOLASE #### [facility] , Estimated GFR ( Radha 56 [facility] Comment on above: Result Comment: GFR estimated reference range: According to KDOQI guidelines, <60 ml/min/1.73m2 is sufficient to diagnose a patient with chronic kidney disease. Performed By: #### C K, ESR, BMP, CRP #### [facility] [address] [place] [address] [place] #### MYOG, ALDOLASE #### [facility] , Estimated GFR (Non- Am 46 [facility] Comment on above: Performed By: #### C K, ESR, BMP, CRP #### [place] [address] [place] #### MYOG, ALDOLASE #### [facility] , Globulin (S) [Mass/Vol] 3.2 g/dL Normal [facility] Comment on above: Performed By: #### C K, ESR, BMP, CRP #### [place] [address] [place] #### MYOG, ALDOLASE #### [facility] , Glucose [Mass/Vol] 145 mg/dL High 70-100 [facility] Comment on above: Result Comment: [facility] Glucose Reference Range is dependent on time and content of last meal. Glucose of more than 200 mg/dL in a nonstressed, ambulatory subject supports the diagnosis of Diabetes Mellitus. ADA recommended reference range Performed By: #### C K, ESR, BMP, CRP #### [place] [address] [place] #### MYOG, ALDOLASE #### [facility] , Potassium [Moles/Vol] 3.0 mmol/L Low 3.5-5.1 [facility] Comment on above: Performed By: #### C K, ESR, BMP, CRP #### [place] [address] [place] #### MYOG, ALDOLASE #### [facility] , Protein [Mass/Vol] 5.7 g/dL Low 6.1-7.9 [facility] Comment on above: Performed By: #### C K, ESR, BMP, CRP #### [place] [address] [place] #### MYOG, ALDOLASE #### [facility] , Sodium [Moles/Vol] 135 mmol/L Low 136-146 [facility] Comment on above: Performed By: #### C K, ESR, BMP, CRP #### [facility] [address] [place] [address] #### MYOG, ALDOLASE #### [facility] , Urea nitrogen [Mass/Vol] 48 mg/dL High 9- [facility] Comment on above: Performed By: #### C K, ESR, BMP, CRP #### [address] #### MYOG, ALDOLASE #### [facility] , Creatine Kinaseon 09-26-2021 CK [Catalytic activity/Vol] 161 U/L Normal 22-269 [facility] Comment on above: Result Comment: PERF ORMED BY: [place] [address] PATHOLOGIST SIDE HEMMER IDANIA WHITESIDE M.D. Performed By: #### C K, ESR, BMP, CRP #### [address] #### MYOG, ALDOLASE #### [facility] , ECG 12 lead ECGon 09-26-2021 ECG 12 lead ECG [facility] [place] [address] [place] [address] Electrocardiograph Report Signed Patient: Alyce David MR#: [id number] : 1955 Acct:[id number] Age/Sex: 66 / F ADM Date: 09/25/21 Loc: Room: [address] [place] [address] Type: DIS IN Attending Dr: Matthew Laird [...] Signed By Óscar Alejandro DO 09/26 1253 [facility] echo transthoracicon [facility] echo transthoracic [facility] [place] [address] [place] [address] Echocardiogram Signed Patient: Alyce David MR#: [id number] : 1955 Acct:[id number] Age/Sex: 66 / F ADM Date: 09/25/21 Loc: Room: 4A9259-0 Type: DIS IN Attending Dr: Matthew Laird DO Ordering Provider: Kirstie Scott MD Date of Service: 09/25/2103/11/2245 [facility] echo transthoracic: abn Copies to: Maranda Farrell [...] 09/26/21 1506 Signed By: Maranda Farrell MD, [facility] 09/26/21 1711 Normal [facility] Erythrocyte Sedimentation Ra getachew 09-26-2021 ESR (Bld) [Velocity] 45 mm/h High 0-29 [facility] Comment on above: Result Comment: PERF ORMED BY: [place] [address] PATHOLOGIST SIDE HEMMER IDANIA WHITESIDE M.D. Performed By: #### C K, ESR, BMP, CRP #### [facility] [address] [place] [address] #### MYOG, ALDOLASE #### [facility] , Ferritinon 09-26-2021 Ferritin [Mass/Vol] 669.7 ng/mL High 11-306.8 [facility] Comment on above: Order Comment: Comme nt add Comment add Performed By: #### C K, ESR, BMP, CRP #### [facility] [address] [place] [address] #### MYOG, ALDOLASE #### [facility] , Free T4 (Free Thyroxine)on 0 09-26-2021 Free T4 [Mass/Vol] 1.25 ng/dL High 0.61-1.12 [facility] Comment on above: Order Comment: Comme nt add Comment add Result Comment: PERF ORMED BY: [place] [address] PATHOLOGIST SIDE HEMMER IDANIA WHITESIDE M.D. Performed By: #### C K, ESR, BMP, CRP #### [facility] [address] [place] [address] [place] #### MYOG, ALDOLASE #### [facility] , Iron and TIBC Profileon % Iron Saturation 9.0 % Low 20-50 [facility] Comment on above: Order Comment: Comme nt add Comment add Performed By: #### C K, ESR, BMP, CRP #### [address] #### MYOG, ALDOLASE #### [facility] , Iron [Mass/Vol] 28 ug/dL Low 40-150 [facility] Comment on above: Order Comment: Comme nt add Comment add Performed By: #### C K, ESR, BMP, CRP #### [facility] [address] [place] [address] [place] #### MYOG, ALDOLASE #### [facility] , Total Iron Binding Capacity 300 ug/dL Normal 255-450 [facility] Comment on above: Order Comment: Comme nt add Comment add Performed By: #### C K, ESR, BMP, CRP #### [facility] [address] [place] [address] [place] #### MYOG, ALDOLASE #### [facility] , Transferrin [Mass/Vol] 214 mg/dL Normal 180-380 [facility] Comment on above: Order Comment: Comme nt add Comment add Performed By: #### C K, ESR, BMP, CRP #### [facility] [address] [place] [address] [place] #### MYOG, ALDOLASE #### [facility] , Magnesiumon 09-26-2021 Magnesium [Mass/Vol] 2.7 mg/dL High 1.6-2.6 [facility] Comment on above: Result Comment: PERF ORMED BY: [place] [address] PATHOLOGIST SIDE HEMMER IDANIA WHITESIDE M.D. Performed By: #### C K, ESR, BMP, CRP #### [facility] [address] [place] [address] #### MYOG, ALDOLASE #### [facility] , Myoglobinon 09-26-2021 Myoglobin [Mass/Vol] 108 ng/mL High 25-58 [facility] Comment on above: Result Comment: Perf ormed at: - [facility] [address] [id number] [employer] Processing Equipment Mechanic: Rhys Rivera PhD, Phone: [phone] Performed By: #### C K, ESR, BMP, CRP #### [facility] [address] [place] [address] #### MYOG, ALDOLASE #### [facility] , Phosphoruson 09-26-2021 Phosphate [Mass/Vol] 3.5 mg/dL Normal 2.5-4.6 [facility] Comment on above: Result Comment: PERF ORMED BY: [place] [address] PATHOLOGIST SIDE HEMMER IDANIA WHITESIDE M.D. Performed By: #### C K, ESR, BMP, CRP #### [address] #### MYOG, ALDOLASE #### [facility] , Triiodothyronine (T3) Freeon 09-26-2021 Triiodothyronine (T3) Free 2.60 pg/mL Normal 2.50-3.90 [facility] Comment on above: Result Comment: PERF ORMED BY: [place] [address] PATHOLOGIST SIDE HEMMER IDANIA WHITESIDE M.D. Performed By: #### C K, ESR, BMP, CRP #### [place] [address] [place] #### MYOG, ALDOLASE #### [facility] , Vit. B12/Folate Profileon Cobalamin (Vitamin B12) [Mass/Vol] 795 pg/mL Normal 180-914 [facility] Comment on above: Order Comment: Comme nt add Comment add Performed By: #### C K, ESR, BMP, CRP #### [facility] [address] [place] [address] #### MYOG, ALDOLASE #### [facility] , Folate 7.3 ng/mL Normal >5.9 [facility] Comment on above: Order Comment: Comme nt add Comment add Result Comment: Shalini te reference range: >5.9 ng/ml The WHO technical consultation on folate and vitamin b12 deficiencies has determined that folate concentrations less than 4 ng/ml are considered deficient. Performed By: #### C K, ESR, BMP, CRP #### [place] [address] [place] #### MYOG, ALDOLASE #### [facility] , B-Type Natriuretic Peptideon 09-25-2021 Natriuretic peptide B (Bld) [Mass/Vol] 577.0 pg/mL High 5-100 [facility] Comment on above: Result Comment: PERF ORMED BY: [place] [address] PATHOLOGIST SIDE HEMMER IDANIA WHITESIDE M.D. Performed By: #### C OVID 19 [facility] #### [address] COVID-19 Antigenon 2 COVID-19 Antigen Healthcare [...] its performance Kate Disclaimer characteristic determined by [employer] and Kate Disclaimer validated at [facility]. This Kate Disclaimer test has not been FDA cleared or approved. This Kate Disclaimer test has been authorized by FDA under an Emergency Use Kate Disclaimer Authorization (EUA). This test has been validated Kate Disclaimer in accordance with the FDA's Guidance Document (Policy Kate Disclaimer for Diagnostics Testing in Laboratories Certified to [employer] Perform High Complexity Testing under CLIA prior to Kate Disclaimer Emergency Use Authorization for Coronavirus Kate Disclaimer isease-2019 during the Public Health Emergency) Kate Disclaimer [...] is terminated or revoked sooner. PERFORMED BY: [place] [address] PATHOLOGIST SIDE HEMMER IDANIA WHITESIDE M.D. Normal [facility] Comment on above: Performed By: #### T SH3 wRFLX, T4F, LIPID, [id number] #### [address] COVID-19 FRMCon 09-25-2021 SARS-CoV-2 (COVID-19) RNA EN+probe Ql (Unsp spec) Negative Normal Negative [facility] Comment on above: Order Comment: Healt hcare Worker?: N Result Comment: Testing for SARS-CoV-2 by RT-PCR This test was developed and its performance characteristics determined by [employer] and validated at the [facility]. This test has not been FDA cleared [...] is terminated or revoked sooner. PERFORMED BY: [place] [address] PATHOLOGIST SIDE HEMMER IDAINA WHITESIDE M.D. Performed By: #### C OVID 19 [facility] #### [address] abdomen pelvis wo conon 0 09-25-2021 CT abdomen pelvis wo con [facility] [place] [address] [place] [address] CT Scan Report Signed Patient: Alyce David MR#: [id number] : 1955 Acct:[id number] Age/Sex: 66 / F ADM Date: 09/25/21 Loc: ER Room: Type: [facility] ER Attending Dr: Ordering Provider: Marino Hough DO Date of Service: 09/25/21 CT/CT abdomen pelvis wo con: abd pain, lower abd, weakness Copies to: Marino Hough DO CT abdomen and pelvis 09/25/2021. CLINICAL DATA: [...] Serrano Jr., M.D.09/25/2021 8:11 PM Dictation Location: [place] [address] Transcribed By: [facility] 09/25/212010 Dictated By: Tyree Serrano Jr, MD 09/25/211957 Signed By: 09/25/212010 Normal [facility] Complete Blood Count Auto Di ffon 09-25-2021 Basophils (Bld) [#/Vol] 0.0 10*3/uL Normal 0.0-0.2 [facility] Comment on above: Result Comment: PERF ORMED BY: [place] [address] PATHOLOGIST SIDE HEMMER IDANIA WHITESIDE M.D. Performed By: #### C K, ESR, BMP, CRP #### [address] #### MYOG, ALDOLASE #### [facility] , Basophils/100 WBC (Bld) 0.5 % Normal . [facility] Comment on above: Performed By: #### C K, ESR, BMP, CRP #### [address] #### MYOG, ALDOLASE #### [facility] , Eosinophils (Bld) [#/Vol] 0.2 10*3/uL Normal 0.0-0.45 [facility] Comment on above: Performed By: #### C K, ESR, BMP, CRP #### [place] [address] [place] #### MYOG, ALDOLASE #### [facility] , Eosinophils/100 WBC (Bld) 1.9 % Normal . [facility] Comment on above: Performed By: #### C K, ESR, BMP, CRP #### [address] #### MYOG, ALDOLASE #### [facility] , Erythrocyte distribution width (RBC) [Ratio] 15.4 % High 11.9-15.3 [facility] Comment on above: Performed By: #### C K, ESR, BMP, CRP #### [place] [address] [place] #### MYOG, ALDOLASE #### [facility] , Hematocrit (Bld) [Volume fraction] 30.3 % Low 34.0-46.4 [facility] Comment on above: Performed By: #### C K, ESR, BMP, CRP #### [address] #### MYOG, ALDOLASE #### [facility] , Hemoglobin (Bld) [Mass/Vol] 9.9 g/dL Low 11.8-15.4 [facility] Comment on above: Performed By: #### C K, ESR, BMP, CRP #### [address] #### MYOG, ALDOLASE #### [facility] , Lymphocytes (Bld) [#/Vol] 0.7 10*3/uL Low 1.00-4.8 [facility] Comment on above: Performed By: #### C K, ESR, BMP, CRP #### [place] [address] [place] #### MYOG, ALDOLASE #### [facility] , Lymphocytes/100 WBC (Bld) 8.7 % Normal . [facility] Comment on above: Performed By: #### C K, ESR, BMP, CRP #### [place] [address] [place] #### MYOG, ALDOLASE #### [facility] , MCH (RBC) [Entitic mass] 30.8 pg Normal 24.7-34.3 [facility] Comment on above: Performed By: #### C K, ESR, BMP, CRP #### [place] [address] [place] #### MYOG, ALDOLASE #### [facility] , MCV (RBC) [Entitic vol] 94.0 fL Normal 80-100 F [facility] Comment on above: Performed By: #### C K, ESR, BMP, CRP #### [place] [address] [place] #### MYOG, ALDOLASE #### [facility] , Mean Corpuscular HGB Conc 32.8 g/dL Normal 32.0-35.0 [facility] Comment on above: Performed By: #### C K, ESR, BMP, CRP #### [place] [address] [place] #### MYOG, ALDOLASE #### [facility] , Monocytes (Bld) [#/Vol] 0.7 10*3/uL Normal 0.0-0.8 [facility] Comment on above: Performed By: #### C K, ESR, BMP, CRP #### [place] [address] [place] #### MYOG, ALDOLASE #### [facility] , Monocytes/100 WBC (Bld) 7.8 % Normal . [facility] Comment on above: Performed By: #### C K, ESR, BMP, CRP #### [place] [address] [place] #### MYOG, ALDOLASE #### [facility] , Neutrophils (Bld) [#/Vol] 6.9 10*3/uL Normal 1.8-7.7 [facility] Comment on above: Performed By: #### C K, ESR, BMP, CRP #### [place] [address] [place] #### MYOG, ALDOLASE #### [facility] , Neutrophils/100 WBC (Bld) 81.1 % Normal . [facility] Comment on above: Performed By: #### C K, ESR, BMP, CRP #### [facility] [address] [place] [address] #### MYOG, ALDOLASE #### [facility] , Nucleated RBC/100 WBC (Bld) [Ratio] 0.4 % Normal 0-0.5 [facility] Comment on above: Performed By: #### C K, ESR, BMP, CRP #### [facility] [address] [place] [address] [place] #### MYOG, ALDOLASE #### [facility] , Platelet mean volume (Bld) [Entitic vol] 8.0 fL Normal 6.3-10.7 [facility] Comment on above: Performed By: #### C K, ESR, BMP, CRP #### [address] #### MYOG, ALDOLASE #### [facility] , Platelets (Bld) [#/Vol] 377 10*3/uL Normal 150-450 [facility] Comment on above: Performed By: #### C K, ESR, BMP, CRP #### [place] [address] [place] #### MYOG, ALDOLASE #### [facility] , RBC (Bld) [#/Vol] 3.22 10*6/uL Low 3.60-5.00 [facility] Comment on above: Performed By: #### C K, ESR, BMP, CRP #### [facility] [address] [place] [address] [place] #### MYOG, ALDOLASE #### [facility] , WBC (Bld) [#/Vol] 8.5 10*3/uL Normal 4.5-11.0 [facility] Comment on above: Performed By: #### C K, ESR, BMP, CRP #### [facility] [address] [place] [address] #### MYOG, ALDOLASE #### [facility] , Comprehensive Metabolic Pane huber 09-25-2021 Albumin [Mass/Vol] 2.8 g/dL Low 3.2-5.5 [facility] Comment on above: Performed By: #### C [place] [address] [facility] #### [address] Albumin/Globulin [Mass ratio] 0.7 {ratio} Normal [facility] Comment on above: Performed By: #### C [place] [address] [facility] #### [address] ALP [Catalytic activity/Vol] 102 U/L High 32-92 [facility] Comment on above: Performed By: #### C [place] [address] [facility] #### [address] ALT [Catalytic activity/Vol] 31 U/L Normal 10-60 [facility] Comment on above: Performed By: #### [address] #### [address] AST [Catalytic activity/Vol] 60 U/L High 10-42 [facility] Comment on above: Performed By: #### C [place] 19 [facility] #### [address] Bilirubin [Mass/Vol] 1.3 mg/dL High 0.3-1.2 [facility] Comment on above: Result Comment: Samp les from patients who have taken Naproxen have shown spurious elevation in Total Bilirubin levels. A metabolite of Naproxen, O-desmethylnaproxen, has been shown to interfere with the Fabian-Mark method for measuring Total Bilirubin. Performed By: #### C OVID 19 [facility] #### [address] Calcium [Mass/Vol] 7.7 mg/dL Low 8.2-10.2 [facility] Comment on above: Performed By: #### C [place] [address] [facility] #### [facility] [address] [place] [address] [place] Chloride [Moles/Vol] 82 mmol/L Low 95-114 [facility] Comment on above: Performed By: #### [address] #### [facility] [address] CO2 [Moles/Vol] 33.7 mmol/L High 22.0-30.0 [facility] Comment on above: Performed By: #### C [address] #### [facility] [address] Creatinine [Mass/Vol] 1.29 mg/dL High 0.44-1.03 [facility] Comment on above: Performed By: #### C [address] #### [facility] [address] [place] [address] [place] Creatinine Clr Calc Pharmacy 43.51 [facility] Comment on above: Performed By: #### C [address] #### [facility] [address] Estimated GFR ( Radha 50 [facility] Comment on above: Result Comment: GFR estimated reference range: According to KDOQI guidelines, <60 ml/min/1.73m2 is sufficient to diagnose a patient with chronic kidney disease. Performed By: #### C [place] [address] [facility] #### [facility] [address] [place] [address] [place] Estimated GFR (Non- Am 41 [facility] Comment on above: Performed By: #### C [place] [address] [facility] #### [facility] [address] [place] [address] [place] Globulin (S) [Mass/Vol] 3.8 g/dL Normal [facility] Comment on above: Performed By: #### C [place] [address] [facility] #### [facility] [address] [place] [address] [place] Glucose [Mass/Vol] 122 mg/dL High 70-100 [facility] Comment on above: Result Comment: [place] Glucose Reference Range is dependent on time and content of last meal. Glucose of more than 200 mg/dL in a nonstressed, ambulatory subject supports the diagnosis of Diabetes Mellitus. ADA recommended reference range Performed By: #### C [address] #### [facility] [address] Potassium Normal 3.5-5.1 [facility] Comment on above: Result Comment: DAIN SUMMERS NOTIFIED OF REDRAW. BMF 1839 Specimen hemolyzed, redraw requested Performed By: #### C [address] #### [facility] [address] Protein [Mass/Vol] 6.6 g/dL Normal 6.1-7.9 [facility] Comment on above: Performed By: #### C [address] #### [place] [address] [place] Sodium [Moles/Vol] 132 mmol/L Low 136-146 [facility] Comment on above: Performed By: #### C [address] #### [address] Urea nitrogen [Mass/Vol] 52 mg/dL High 9-23 [facility] Comment on above: Performed By: #### C [address] #### [facility] [address] [place] [id number] [place] Creatine Kinaseon 09-25-2021 CK [Catalytic activity/Vol] 197 U/L Normal 22-269 [facility] Comment on above: Performed By: #### C [address] #### [facility] [address] [place] [address] [place] Dipstick and Microscopicon 0 09-25-2021 Appearance (U) Cloudy Critically abnormal Clear [facility] Comment on above: Order Comment: Name Collection Type:: Straight Catheter Performed By: #### C K, ESR, BMP, CRP #### [facility] [address] #### MYOG, ALDOLASE #### [facility] , Bacteria,Urine 2+ High None Seen [facility] Comment on above: Order Comment: Name Collection Type:: Straight Catheter Result Comment: --- 09/25/211909 --- Ur Bact previously reported as: 2+ H Performed By: #### C K, ESR, BMP, CRP #### [address] #### MYOG, ALDOLASE #### [facility] , Bilirubin,Urine Negative Normal Negative [facility] Comment on above: Order Comment: Name Collection Type:: Straight Catheter Performed By: #### C K, ESR, BMP, CRP #### [address] #### MYOG, ALDOLASE #### [facility] , Color (U) Yellow Normal Yellow [facility] Comment on above: Order Comment: Name Collection Type:: Straight Catheter Performed By: #### C K, ESR, BMP, CRP #### [address] #### MYOG, ALDOLASE #### [facility] , Glucose Ql (U) Normal Normal Normal [facility] Comment on above: Order Comment: Name Collection Type:: Straight Catheter Performed By: #### C K, ESR, BMP, CRP #### [address] #### MYOG, ALDOLASE #### [facility] , Hyaline Casts,Urine None Seen Normal 0-1 [facility] Comment on above: Order Comment: Name Collection Type:: Straight Catheter Performed By: #### C K, ESR, BMP, CRP #### [address] #### MYOG, ALDOLASE #### [facility] , Ketones Ql (U) Negative Normal Negative [facility] Comment on above: Order Comment: Name Collection Type:: Straight Catheter Performed By: #### C K, ESR, BMP, CRP #### [address] #### MYOG, ALDOLASE #### [facility] , Leukocyte esterase Test strip Ql (U) 3+ High Negative [facility] Comment on above: Order Comment: Name Collection Type:: Straight Catheter Performed By: #### C K, ESR, BMP, CRP #### [address] #### MYOG, ALDOLASE #### [facility] , Nitrite,Urine Negative Normal Negative [facility] Comment on above: Order Comment: Name Collection Type:: Straight Catheter Performed By: #### C K, ESR, BMP, CRP #### [address] #### MYOG, ALDOLASE #### [facility] , Occult Blood,Urine Trace High Negative [facility] Comment on above: Order Comment: Name Collection Type:: Straight Catheter Result Comment: PERF ORMED BY: [place] [address] PATHOLOGIST SIDE HEMMER IDANIA WHITESIDE M.D. Performed By: #### C K, ESR, BMP, CRP #### [address] #### MYOG, ALDOLASE #### [facility] , Other Casts,Urine None Seen Normal None Seen [facility] Comment on above: Order Comment: Name Collection Type:: Straight Catheter Result Comment: PERF ORMED BY: [place] [address] PATHOLOGIST SIDE HEMMER IDANIA WHITESIDE M.D. Performed By: #### C K, ESR, BMP, CRP #### [address] #### MYOG, ALDOLASE #### [facility] , pH (U) 7.0 [pH] Normal 5.0-9.0 [facility] Comment on above: Order Comment: Name Collection Type:: Straight Catheter Performed By: #### C K, ESR, BMP, CRP #### [facility] [address] [place] [address] #### MYOG, ALDOLASE #### [facility] , Protein (U) [Mass/Vol] 30 mg/dL High Negative [facility] Comment on above: Order Comment: Name Collection Type:: Straight Catheter Performed By: #### C K, ESR, BMP, CRP #### [address] #### MYOG, ALDOLASE #### [facility] , RBC,Urine 1-2 Normal 0-4 [facility] Comment on above: Order Comment: Name Collection Type:: Straight Catheter Performed By: #### C K, ESR, BMP, CRP #### [address] #### MYOG, ALDOLASE #### [facility] , Renal Epithelial Cells,Urine None Seen Normal 0-1 [facility] Comment on above: Order Comment: Name Collection Type:: Straight Catheter Performed By: #### C K, ESR, BMP, CRP #### [address] #### MYOG, ALDOLASE #### [facility] , Specificy Sells,Urine 1.013 Normal 1.001-1.030 [facility] Comment on above: Order Comment: Name Collection Type:: Straight Catheter Performed By: #### C K, ESR, BMP, CRP #### [facility] [address] [place] [address] [place] #### MYOG, ALDOLASE #### [facility] , Squamous Epithelial Cell,Urine 5-9 High 0-2 [facility] Comment on above: Order Comment: Name Collection Type:: Straight Catheter Performed By: #### C K, ESR, BMP, CRP #### [facility] [address] [place] [address] [place] #### MYOG, ALDOLASE #### [facility] , Urobilinogen,Urine Normal Normal Normal [facility] Comment on above: Order Comment: Name Collection Type:: Straight Catheter Performed By: #### C K, ESR, BMP, CRP #### [facility] [address] [place] [address] [place] #### MYOG, ALDOLASE #### [facility] , WBC,Urine 5-9 High 0-4 [facility] Comment on above: Order Comment: Name Collection Type:: Straight Catheter Performed By: #### C K, ESR, BMP, CRP #### [place] [address] [place] #### MYOG, ALDOLASE #### [facility] , ECG 12 lead ECGon 09-25-2021 ECG 12 lead ECG [facility] [place] [address] [place] [address] Electrocardiograph Report Signed Patient: Alyce David MR#: [id number] : 1955 Acct:[id number] Age/Sex: 66 / F ADM Date: 09/25/21 Loc: Room: 6G2894-1 Type: DIS IN Attending Dr: Matthew Laird [...] Prolonged QT Confirmed by Marino HOUGH DO ([id number]) on 09/25/2021 9:10:39 PM Referred By: Electronically Signed By:Marino HOUGH DO Transcribed By: MUS Signed By Marino Hough DO 0 09/25/212109 Normal [facility] Glucose Poct Glucometerson 0 09-25-2021 Glucose [Mass/Vol] 148 mg/dL Normal [facility] Comment on above: Result Comment: [place] Glucose Reference Range is dependent on time and content of last meal. Glucose of more than 200 mg/dL in a nonstressed, ambulatory subject supports the diagnosis of Diabetes Mellitus. PERFORMED BY: [place] [address] PATHOLOGIST SIDE HEMMER IDANIA WHITESIDE M.D. Performed By: #### C K, ESR, BMP, CRP #### [facility] [address] [place] [address] #### MYOG, ALDOLASE #### [facility] , Magnesiumon 09-25-2021 Magnesium [Mass/Vol] 1.1 mg/dL Low 1.6-2.6 [facility] Comment on above: Performed By: #### C [place] 19 [facility] #### [address] Partial Thromboplastin Timeo n 09-25-2021 aPTT Coag (Bld) [Time] 32.0 s Normal 25.1-36.5 [facility] Comment on above: Result Comment: PERF ORMED BY: [place] [address] PATHOLOGIST SIDE HEMMER IDANIA WHITESIDE M.D. Performed By: #### C [place] 19 [facility] #### [facility] [address] [place] [address] Prothrombin Time INRon 09-25 INR Coag (PPP) [Relative time] 1.4 {INR} Normal [facility] Comment on above: Result Comment: INR Therapeutic [...] #### C K, ESR, BMP, CRP #### [facility] [address] #### MYOG, ALDOLASE #### [facility] , PT Coag (PPP) [Time] 15.9 s High 9.0-12.9 [facility] Comment on above: Performed By: #### C K, ESR, BMP, CRP #### [facility] [address] #### MYOG, ALDOLASE #### [facility] , Redraw Potassiumon 2 Potassium [Moles/Vol] 2.1 mmol/L Off scale low 3.5-5.1 [facility] Comment on above: Order Comment: Comme nt use ed blood Comment us ed blood Result Comment: Crit ical value result called at 1921 on 09/25/21 PERFORMED BY: [place] [address] PATHOLOGIST SIDE HEMMER IDANIA WHITESIDE M.D. Performed By: #### T SH3 wRFLX, T4F, LIPID, [id number] #### [address] Kate Ag Negativeon 09-26-19 22 Kate Ag Negative Negative Normal Negative [facility] Comment on above: Result Comment: This is a duplicate Kate SARS Antigen (MY) result to be used for statistical tracking purpose only. PERFORMED BY: [place] [address] PATHOLOGIST SIDE HEMMER IDANIA WHITESIDE M.D. Performed By: #### T SH3 wRFLX, T4F, LIPID, [id number] #### [address] Thyroid Stimulating Hormoneo n 09-25-2021 TSH Qn 11.80 m[IU]/L High 0.45-5.33 [facility] Comment on above: Result Comment: PERF ORMED BY: [place] [address] PATHOLOGIST SIDE HEMMER IDANIA WHITESIDE M.D. Performed By: #### C [place] 19 [facility] #### [facility] [address] [place], [place] [address] [facility] Troponin I High Sensitivityo n 09-25-2021 Troponin I High Sensitivity 22 pg/mL High 0-15 [facility] Comment on above: Result Comment: PERF ORMED BY: [place] [phone] PATHOLOGIST SIDE HEMMER IDANIA WHITESIDE M.D. Performed By: #### C [place] 19 [facility] #### [facility] [address] [place], [place] [address] [facility] Urine Cultureon 09-25-2021 Bacteria identified Cx Nom (U) ORGANISM: Diptheroids (O:DIPTH) [place] Count >100,000 Organism Comments Organism not Routinely Tested for Susceptibilities PERFORMED BY: [place] [phone] PATHOLOGIST SIDE HEMMER IDANIA WHITESIDE M.D. [facility] Comment on above: Performed By: #### C K, ESR, BMP, CRP #### [facility] [address] [place] [address] #### MYOG, ALDOLASE #### [facility] , XR chest 1V portableon 09-25 XR chest 1V portable [facility] [place] [address] [place] [address] XRay Report Signed Patient: Alyce David MR#: [id number] : 1955 Acct:[id number] Age/Sex: 66 / F ADM Date: 09/25/21 Loc: ER Room: Type: [facility] ER Attending Dr: Ordering Provider: [...] Serrano Jr., M.D.09/25/2021 8:43 PM Dictation Location: [place] [address] Transcribed By: [facility] 09/25/212042 Dictated By: Tyree Serrano Jr, MD 09/25/212040 Signed By: 09/25/212042 [facility] Consent Formson 10-17-2020 Consent Forms [id number] .00OTGTIFF [facility] Coding Summaryon 09-21-2020 Coding Summary HTMLBase 64 GyiqhkctECx3oNf+PGhlY WQ+FK5EJOXiX31fnCRtnC 7RR9gVPX6KUYCVVKQRBW7 RYH3rmFI2UKtzU1IybfBy UmhxaRTeUB43IHx6MYT2e RjrQCoeqC1pyHDyC0l4Tu HxYE09kS84JJrgNUMfThL 3LjZpbjsgbWFy M3doQwPqjMIwJns+PHRhY mxlIHdpZHRoPScxMDAlJy JseOapFQ2hRl0tUMKjJMO vbGxhcHNlOiBj p5veDQZrQSqlPM1xbMfrC 1TtpLR4UFWjv6q4Pd86lC I+DQUyZBG6eUvvZSbmm74 5SvTzm0xrDKH1 dURkJCavOZF6C12ds0K5U NVnARFkJVW1zJS5pY7zjG gihrwoU0JhyNSiOeO3CHA 0uGNymB7onZam bkdiiA5nIux+R93RKA1VY TTROD5CJvv9K2UdWnlqnS I+GX38TWSkQS07aBPeyBS xr6cxxVe6HwAs WMXwZSZ3tRuzQCxrt6GvN GIwP72ceHBfr8Y7YDQifC mdxWDtVmRqjWZ6wL3bSTa fjraot3ruwipm Yqiqo0tjue03sL24V20gV VvxHDOqEPT0VMQpDMEbmX abvg4iyN8eNp2+GThkv2p bz8fjyOv8VpJr SJWmcpXriDgbZQV1y0WzI h64U2IxwDcqq5WlDgc4mm 31fSMlk8Y8cEP8YTltGSI hbE7fDQjuWiE0 ICKmKpGswN61yAMaBBaeA a3hhNiabKmxUK7yMPBhxz usIDWrkC3tTYQvkHSdjHr hOR1uDGMxipsw b284JhFxOFD8JCZesDZiT 7JlaL1bIpPrTDOkSAPmG0 ZioYKqWImmB252AVuiYpW 8PXSofmWfN5Yr JNKypTcjTqU6b9L3Zu6Mz 3DfneelSOE6ERdaGPBzEt F5HpRzKhM8N2PdXby9RQF jkVzmOG7gW8Lu JMQzgwisdlrsmJN3JLQlO DIrzS99bBFmNImjEd0jl2 G7o858VZPkBHRvsF49My3 udDogMTBwdCBU wE5gphqsi3mqxjgpEuPjU PLrZAs3QOs0TJMgnKtrBg ViENQ6SeU4KSY8uFCstT5 cfLtkanrwhN9f Oyc+U44ilM3kMUO2SUV8k prxEBXpkvJsOY26XF51Q6 RyPjwvdGFibGU+PGRpdiB iwFtyXN9dOrIn e4jwc4DxIRqpN2WpMMReO HdgWyo3UJIzJWQ4lOE7tG 5iSYHsXFtqv1D0sNV5Z0B excZuhw4dh3eh OJQgOXrjA43hsVKzk4P4P GJqtTT7QIRqmFtgByEotD 93Oyc+SCZoqAfbc2CeNpb jc7ptg1ecpGm5 CrXjRSZnzvAkiAwtWTZ9n 6KwUr87R64oUSmyZPMqJF HzABPrAPOtcGgyql9poV9 wIi8+PGNvbCB3 cHM0mV5vCGGuOtW5AWsmR 208LyRxiSLlFpucy3zwu0 pvzPk1AcLsVUFhuhGbjNi mSDM2a1KtPc52 B81lHErlRHMqQAChXYZxY KQjrOekhy2ktQ1lGw2+PC 6vb0hbag25zL69sWL+PHR aWEE2jMvmYVff JHVfxS0zRYhoThV1VSVfU nGbpC08uZStNBsmLv0vcI alyKurZN3hNAXvolzqm10 8GuWuj8qyHHJk iSDaPTzzTGU3S62je5D9O FGyXSCkTHC7mNE8gU1vfE lnbjogbGVmdDsgdmVydGl wMZsdUJpnJ800 IHRvcDsnPlBhdGllbnQgT rRlCLl4N9ZeHmr8FQIyqC pbKY9etNFdTGeeZu7cdKb xpVqgVK5lIAOq ffhtl762JgRxd8ibPOLia ZDhHEoiWQO5X20sp4I5SL HnZKUhDOX2aAJ0lV5qsUm nbjogbGVmdDsg vqSyrNxiNJjwUBtsQ630C HRvcDsnPkJpcnRoIERhdG X5RS64BE46aMAbh8W6gBZ 6Q8VyNXRwqxwx ijkqrOD6XEKhCSDkmI50Y z4axDmdFn2pXHWeJFC7CX GqxTDgK2IvrS5dJnNzRJP eYKSkA1OrdAXg PGwoG207HSwhEmP2LXDyv lYsA4ZtUFJuaBbiEkC7y7 Z7Ry8OR7M6DS30FD23yMD kf7C3wPP8L0Be UQJumbqtttcvlPN1AEEbG HFoaB81Ag3nvHccCe6gRY JxTWT3OWQxeGXeT8EdtQ9 yOiAjMDAwMDAw V5UhjIOsDYdpU556PVyfS cS2VIEdaaFbM8NsLWNtcS tfLpL8k1D0Xa6CAIq3OD9 4FQ51cSPsa9W0 rKU4A7JuJJNrioudtibhc FX3DAGwYVCxjC49Nb7gcV bkFx6oRGFzFBG5ALHogNW bG9FhlA4yHmCm GKBtFKPdD9IufGLuOAjjK 011GHmcBlF7XTDxnaIsQ3 MoQAHadWzqOwH7l4Q0Pu9 XCBXmYB59NOD1 tEY7XS26PY66R7YqQlzjk GFibGU+PHRhYmxlIHdpZH RoPScxMDAlJyBzdHlsZT0 xZz7rFAQfIHNl mUvafBRrWuQqd3meEWUsY AcnLJ4bgGrrX9UdsNQ6QY Mci5v7Lq09B02pG4VfdWL +VPJtpCS1aEF5 wQ9nBuQwVdB7VXpsV644C kAtvXOhZnjhr1jnj2efzI e7KqK1SHZdzmDifJibFPF 8d5PfDn27I86y IHdpZHRoPSIxNSUiIHZhb Jlixh6saH1cDi4+PGNvbC N9kMR9eP7lChNzIuR6FWd qM459SiDvaLPk Dchcm8kbu6zkoEp3YtRfT MJcxfHivWnuQMA8f6JrMj 09D5RpuEjix9CfUte3su4 2tTQkh1P9aWO0 P1ScHADljadiqESauDelN Z8oRPSmijkaBYIksE1xLU OjT4b6MiFyNcK8AXrvW2G etwW2RJGqwUUg IIjsYHU1W84ch5D2DWAdT ZGbYSB3wXI6vZ1viQfifa ogbGVmdDsgdmVydGljYWw eLIgtH552ORAq aAhfLQTxyL7rBBJshKAdn KrxYK9kKNZybiacXnuKHm 1BTiwgREFSTEVORSBNQVJ JRTwvdGQ+PHRk SHG7qGhbIFdjZZTmzB5rC WLbT7s3EpSnPrO3MQliG6 CtVZOpfomnHm75tU5cVbD yPlW4CBgrS0Bm rlM3TEPtpOWoYSbhAIG7U 06rr4D8DCSzUTMsKIJ0kD K5dV0obPwrzvniuACvuSb gdmVydGljYWwt FRjiC867RUItrChmUnKbL mB8HcX6EVQ4A8DzNeh3YK DvnFkaSG6naAMgYWzlIl4 zhIkmjZtyYY9f PFBmdadlCYJmzV4jSJAny CEbpYxgCF5sPGZqpamkv0 51KnUgUMG0NJBgvFGpY6V nsT7dGwFiNSAj ETNlM3TmgOVlEEqiM954A LjeDuI6MDHvxuUxY1WsSG KdoCyoDyZ9g4E8Sr48CtP ZZWFyczwvdGQ+ TWKbRUQ9sWqyEMtaMLDyb E9bGOEhP2y8CgOpZkF9PZ mrE2SrKSEmdgnnEy20yK8 iHqIpBoD2OZch Y8XjupR7NFEtjGKsRUdqX SD4V52et8I2JUZgWCSjHC U6hQY9uC5bzSmelfjgsBM mdDsgdmVydGlj QTclJThsM020VBJfkAwjP kZFTUFMRTwvdGQ+PHRkIH U9tKguMKgoQAYjkO9yPWX hQ2h5CbKhMgD6 FDmbQ2WzCGJmukmqQq52t F4rYsBqTlD3PTarO8Bazb X9HFChlCRyYLwdSEP6B66 xv5F4MUTyOFLa QJX3dHY9mZ2xiWyyynccm GVmdDsgdmVydGljYWwtYW zqW603NJRxdIvlKnRlR9J ycmluZyBPdXRw VMGoQU63IK33KR87Y7MlU jwvdGFibGU+PHRhYmxlIH dpZHRoPScxMDAlJyBzdHl nER5uEv1vORIh VLVgrOqnlIWxMsCzx6niX MTzPLglUC0jxHauV1GlvU B4BGHuw5t0Ij78Z22sH6S vdXA+PGNvbCB3 hCS5bS8qHvKpKhX0SNmsU 517IsJwsWCxCofpu9cov6 wbdCg7HyLtGHLoewIleXr qVXE3x1ZgVj19 D12aZYcmATWiYCTcJLVqJ UUbzNcgjo4vnD7sCf9+PG KuoGX1aJX2xX4kGwZnGuY 5KGuoW031PnYu kGXqMftgO71oD3RfaYR+P PXvXej8EUFouMfaQM4mcO EgPAptSg9hWGK3JhSyWeW mMCxpR6CaMDKz wedzvdkzkWT1WFFgILYaf H56Sh5lgFwkRz8kKKUdRO U7OBFldDUtR2DfkW7cUbV jAOOdJRNgB9No yYDtSFchG089LAtlXtJ3L KSnzrUqU0WfGTQckFenRl G5h5X0Oq9RcHywsJGiDX8 wXcHrSBp5C2Hf Ptn1ABGfdJthUA3vlLYcP XydHb5pgTurcCfdIT5oVQ Wfzzxwt620HeJhi2gbWTV wcHQgVGltZXM7 Z72si4E3EQOsBDUaOIV1o TL1fC6rwMkpdcsexQTubV gbuzSnhLayVIooHHufH25 6IHRvcDsnPkZJ Sqr4E6OaNrc2AOMqgTzmK G4hyWScXClmTj5bwTjwkB hvWN4nETDgvtjzq055NuH fp0unPEKaaAJq LBaoTFH2R89ws9I4NVLzC NAsKRN7xVI4iG9bmKszmk ogbGVmdDsgdmVydGljYWw jYFqdB260WZIk hHqxEl2RArh8O2UwNag5D FXwkRlgRI9lvEOnIFddCy 9peHbesSniDN5qKPVejir rp070HoMrr8qb FDLzoSBlSCjoNGZ5H71js 4M5PKVnACQwNII1bSK9gU 1hbGlnbjogbGVmdDsgdmV ydGljYWwtYWxp D029HDKmzUftNcUjsNXyO jwvdGQ+UX23nq06N0EfYc seJsz8CZFpENW2aHR7lM6 mWCMvZLdzm1O3 [facility] (more content not included)... [facility] Consent Formson 09-19-2020 Consent Forms [id number] .[facility] Cons[facility] Formson 09-18-2020 Consent Forms [id number] .[facility] Coding Summaryon 03-16-2020 Coding Summary CODING DATE: 03/16/2020 [facility] STATUS: Home PAYOR: Medicare MC ADMIT [...] Corinna Roy Date Saved: 03/16/2020 03:35 pm [facility] Coding Summary CODING DATE: 03/16/2020 [facility] STATUS: Home PAYOR: Medicare ADMIT DX: REASON FOR VISIT DX: D64.9 [...] Corinna Roy Date Saved: 03/16/2020 03:35 pm [facility] Provider Orderson 03-16-2020 Provider Orders [id number] .[facility] Provider Orders [id number] .00[facility] .Auto Diff 1on 03-15-2020 [place] % 9 % Normal -12 [facility] Comment on above: Performed By: #### 1 [id number], [id number], [id number], [id number], [id number], [id number], [id number] ####[facility] (DEFAULT)[address] [place] [address] Baso Abs# 0.0 x10 Normal 0.0-0.2 [facility] Comment on above: Performed By: #### 1 [id number], [id number], [id number], [id number], [id number], [id number], [id number] ####[facility] (DEFAULT)[address] [place] [address] Basophils/100 WBC (Bld) 1.0 % Normal 0.2-2.0 [facility] Comment on above: Performed By: #### 1 [id number], [id number], [id number], [id number], [id number], [id number], [id number] ####[facility] (DEFAULT)[address] [place] [address] Eos Abs# 0.1 x10 Normal 0.0-0.4 [facility] Comment on above: Performed By: #### 1 [id number], [id number], [id number], [id number], [id number], [id number], [id number] ####[facility] (DEFAULT)[address] [place] [address] 167[address] Eosinophils/100 WBC (Bld) 2.6 % Normal 0.9-4.0 [facility] Comment on above: Performed By: #### 1 [id number], [id number], [id number], [id number], 8137355885, 4268282, 8371780 ####[facility] (DEFAULT)[address] [place] [address] 75614 Lymph Abs# 0.7 x10 Low 1.3-2.9 [facility] Comment on above: Performed By: #### 1 [id number], [id number], 557550967, 8671391, 4535769016, 1962571, 9782471 ####[facility] (DEFAULT)[address] [place] [address] 14279 Lymphocytes/100 WBC (Bld) 16 % Normal 14-48 [facility] Comment on above: Performed By: #### 1 [id number], 1050684616, 302212527, 4564948, 8512429688, 3927230, 4218669 ####[facility] (DEFAULT)[address] [place] [address] 82429 [place] Abs# 0.4 x10 Normal 0.0-0.8 [facility] Comment on above: Performed By: #### 1 6997480, [id number], 368259297, 3212034, 0749918606, 5060393, 2820811 ####[facility] (DEFAULT)[address] [place] [address] 55093 Neut Abs# 3.0 x10 Normal 1.5-9.2 [facility] Comment on above: Performed By: #### 1 8993457, 3060670484, 177181392, 7743683, 7780335970, 7414145, 7106135 ####[facility] (DEFAULT)[address] [place] [address] 23305 Neutrophils/100 WBC (Bld) 72 % Normal 44-88 [facility] Comment on above: Performed By: #### 1 7285086, [id number], 985127352, 6569784, 1242927112, 1684340, 0964346 ####[facility] (DEFAULT)[address] [place] [address] CBC w/ Auto Diffon 0 Erythrocyte distribution width (RBC) [Ratio] 12.7 % Normal 11.5-15.0 [facility] Comment on above: Performed By: #### 1 4322079, 3001716184, 242469889, 3548076, 6018351431, 3671782, 3065685 ####[facility] (DEFAULT)[address] [place] [address] Hematocrit (Bld) [Volume fraction] 36.3 % Normal 33.7-40.4 [facility] Comment on above: Performed By: #### 1 8728185, [id number], 659906195, 8288208, 9264214466, 3268727, 9601302 ####[facility] (DEFAULT)[address] [place] [address] 18793 Hemoglobin (Bld) [Mass/Vol] 11.5 g/dL Normal 11.3-15.9 [facility] Comment on above: Performed By: #### 1 1745270, 1623658518, 496942308, 7456220, 9386110570, 1760913, 0705021 ####[facility] (DEFAULT)[address] [place] [address] 87280 Instr WBC 4.2 x10 Invalid Interpretation Code [facility] Comment on above: Performed By: #### 1 1444395, [id number], 776460778, 3136586, 0513629172, 2560961, 5709519 ####[facility] (DEFAULT)[address] [place] [address] 80517 Man Diff? Auto Normal [facility] Comment on above: Performed By: #### 1 7974376, 5529158197, 542360817, 7181188, 8133971380, 2552545, 1516241 ####[facility] (DEFAULT)[address] [place] [address] 67210 MCH (RBC) [Entitic mass] 32 pg Normal 24-34 [facility] Comment on above: Performed By: #### 1 1302956, 6216208841, 766897706, 5736050, 8060578933, 4090301, 4711919 ####[facility] (DEFAULT)[address] [place] [address] MCHC (RBC) [Mass/Vol] 32 g/dL Normal 26-37 [facility] Comment on above: Performed By: #### 1 6952654, 7557202636, 567265069, 4274581, 2498043241, 9485922, 6731854 ####[facility] (DEFAULT)[address] [place] [address] MCV (RBC) [Entitic vol] 100 fL Normal 81-100 [facility] Comment on above: Performed By: #### 1 3401585, 9043373796, 817227707, 1341356, 7746590501, 5151033, 3698213 ####[facility] (DEFAULT)[address] [place] [address] Platelet 198 x10 Normal 138-427 [facility] Comment on above: Performed By: #### 1 6459763, 8726373431, 975357232, 9503128, 6974714699, 6837101, 9696528 ####[facility] (DEFAULT)[address] [place] [address] Platelet mean volume (Bld) [Entitic vol] 10.0 fL Normal 6.3-10.2 [facility] Comment on above: Performed By: #### 1 [id number], 0710442137, 754517217, 1848017, 2246032226, 9701452, 2604510 ####[facility] (DEFAULT)[address] [place] [address] RBC 3.62 x10 Low 3.70-5.30 [facility] Comment on above: Performed By: #### 1 3222415, 4283648811, 761484847, 0911338, 4439705175, 2651475, 9514993 ####[facility] (DEFAULT)[address] [place] [address] WBC 4.2 x10 Normal 3.5-10.5 [facility] Comment on above: Performed By: #### 1 9771351, 9909018372, 624126075, 0431674, 0368992068, 7957558, 8167105 ####[facility] (DEFAULT)[address] [place] [address] Standardon 03-15-2020 eGFR Non AA >60 Invalid Interpretation Code [facility] Comment on above: Performed By: #### 1 2987835, 1302857036, 700909733, 6277706, 1270335739, 7723361, 0257248 ####[facility] (DEFAULT)[address] [place] [address] eGFR AA >60 Invalid Interpretation Code [facility] Comment on above: Result Comment: Marine Operations Coordinator kenny Kidney disease could be indicated at eGFRs of less than 60 ml/min/1.73m2. Kidney Failure is indicated at less than 15 ml/min/1.73m2 Performed By: #### 1 1790930, 2455445659, 711219270, 2097924, 8294285912, 9690853, 8201077 ####[facility] (DEFAULT)[address] [place] [address] 08768 Albumin [Mass/Vol] 4.0 g/dL Normal 3.5-5.0 [facility] Comment on above: Performed By: #### 1 0554502, 7217250850, 149402003, 2567400, 1332022107, 4372734, 5500785 ####[facility] (DEFAULT)[address] [place] [address] 93462 Albumin/Globulin [Mass ratio] 1.1 {ratio} Low 1.4-2.6 [facility] Comment on above: Performed By: #### 1 5182856, 5117430168, 665375680, 9653698, 9181408397, 7264690, 3361352 ####[facility] (DEFAULT)[address] [place] [address] 60583 Alk Phos 64 IU/L Normal 32-91 [facility] Comment on above: Performed By: #### 1 5211785, 8185573964, 608072642, 6821490, 4519056277, 7716051, 6641965 ####[facility] (DEFAULT)[address] [place] [address] 25348 ALT [Catalytic activity/Vol] 17.0 U/L Normal 14.0-54.0 [facility] Comment on above: Performed By: #### 1 5763584, 4792804940, 125452704, 6970148, 8140246241, 2709721, 9457846 ####[facility] (DEFAULT)[address] [place] [address] 38492 Anion gap [Moles/Vol] 14.0 mmol/L Normal 5.0-19.0 [facility] Comment on above: Performed By: #### 1 3033935, 2070565751, 320364676, 8598966, 7590424948, 4242776, 3359030 ####[facility] (DEFAULT)[address] [place] [address] 81907 AST [Catalytic activity/Vol] 21 U/L Normal 15-41 [facility] Comment on above: Performed By: #### 1 4486720, 2428131916, 429063864, 5169578, 1546217614, 5805607, 1235012 ####[facility] (DEFAULT)[address] [place] [address] 42588 Bili Total 0.7 mg/dL Normal 0.3-1.2 [facility] Comment on above: Performed By: #### 1 5681165, 1379321677, 876286420, 5455337, 5471017860, 6788571, 0351455 ####[facility] (DEFAULT)[address] [place] [address] 67273 Calcium [Mass/Vol] 9.3 mg/dL Normal 8.9-10.3 [facility] Comment on above: Performed By: #### 1 5109267, 5998235438, 029234586, 0692669, 5667408922, 4379364, 5185100 ####[facility] (DEFAULT)[address] [place] [address] 06561 Chloride [Moles/Vol] 105 mmol/L Normal 101-111 [facility] Comment on above: Performed By: #### 1 4077059, 9253402894, 231037819, 6380570, 7756856062, 2423980, 1666376 ####[facility] (DEFAULT)[address] [place] [address] 41089 CO2 [Moles/Vol] 24 mmol/L Normal 21-32 [facility] Comment on above: Performed By: #### 1 8357996, 9458644813, 907775436, 1692769, 8920714163, 8244925, 8039355 ####[facility] (DEFAULT)[address] [place] [address] 72912 Creatinine [Mass/Vol] 0.76 mg/dL Normal 0.60-1.30 [facility] Comment on above: Performed By: #### 1 6950203, 2209479019, 980197874, 6689019, 7979342594, 6715407, 8802933 ####[facility] (DEFAULT)[address] [place] [address] 71826 Globulin (S) [Mass/Vol] 3.5 g/dL Normal 1.5-4.3 [facility] Comment on above: Performed By: #### 1 5056825, 5699687168, 142473935, 6980402, 6155479198, 1417577, 0506834 ####[facility] (DEFAULT)[address] [place] [address] 70670 Glucose [Mass/Vol] 113.0 mg/dL Normal 74.0-118.0 [facility] Comment on above: Performed By: #### 1 1484027, 1031965805, 315288404, 9261722, 2263182205, 1181877, 7352760 ####[facility] (DEFAULT)[address] [place] [address] 50127 Osmolality 280 mOsm/L Invalid Interpretation Code [facility] Comment on above: Performed By: #### 1 6384318, 4042199313, 316432620, 4913743, 3825726236, 2964278, 1592762 ####[facility] (DEFAULT)[address] [place] [address] 28438 Potassium [Moles/Vol] 4.3 mmol/L Normal 3.6-5.1 [facility] Comment on above: Performed By: #### 1 1680463, 8517964238, 244099216, 8373768, 1531767325, 6952630, 6900776 ####[facility] (DEFAULT)[address] [place] [address] 19572 Protein [Mass/Vol] 7.5 g/dL Normal 6.5-8.1 [facility] Comment on above: Performed By: #### 1 9771873, 0687256925, 226476430, 0204395, 3523235453, 9835443, 3109741 ####[facility] (DEFAULT)[address] [place] [address] 84063 Sodium [Moles/Vol] 139.0 mmol/L Normal 136.0-144.0 [facility] Comment on above: Performed By: #### 1 0084087, 8042132433, 799655658, 8505518, 4874511622, 2717102, 4332150 ####[facility] (DEFAULT)[address] [place] [address] 40782 Urea nitrogen [Mass/Vol] 18 mg/dL Normal 8-26 [facility] Comment on above: Performed By: #### 1 7228719, 7139344430, 279294268, 6079013, 7157024202, 9326540, 1441546 ####[facility] (DEFAULT)[address] [place] [address] 27725 Urea nitrogen/Creatinine [Mass ratio] 24.0 mg/mg High 4.6-16.2 [facility] Comment on above: Performed By: #### 1 6356558, 0379129328, 422412659, 2692080, 1545286361, 4849640, 8736805 ####[facility] (DEFAULT)[address] [place] [address] 18015 Ferritinon 03-15-2020 Ferritin [Mass/Vol] 280.1 ng/mL High 12.0-150.0 [facility] Comment on above: Performed By: #### 1 2612986, 5087580264, 396250168, 6843549, 9612959629, 3493833, 7043329 ####[facility] (DEFAULT)[address] [place] [address] 71587 Iron Profileon 03-15-2020 Iron [Mass/Vol] 48.0 ug/dL Normal 28.0-170.0 [facility] Comment on above: Performed By: #### 2 4458529 #### [facility] (DEFAULT) [address] [place] [address] Iron Sat 13 % Low 20-55 [facility] Comment on above: Performed By: #### 2 4432164 #### [facility] (DEFAULT) [address] [place] [address] 50674 TIBC 378 mcg/dL Normal 250-400 [facility] Comment on above: Performed By: #### 2 2350304 #### [facility] (DEFAULT) [address] [place] [address] 33494 Transferrin [Mass/Vol] 269.8 mg/dL Normal 192.0-382.0 [facility] Comment on above: Performed By: #### 2 6671565 #### [facility] (DEFAULT) [address] [place] [address] 81159 Lipid Panel Standardon 03-15 Cholesterol [Mass/Vol] 159.0 mg/dL Normal 66.0-200.0 [facility] Comment on above: Result Comment: Lorene rable - Less than 200 mg/dL Borderline high risk - 200-239 mg/dL High risk - 240 mg/dL and over. Performed By: #### 1 4517796, 3308399544, 100014568, 6609112, 5094790653, 0195176, 8889568 ####[facility] (DEFAULT)[address] [place] [address] 77568 Cholesterol in HDL [Mass/Vol] 42 mg/dL Normal 40-71 [facility] Comment on above: Result Comment: High risk - <40 mg/dL. Performed By: #### 1 7291643, 5739858496, 619050450, 0647860, 7778229491, 4722005, 6298203 ####[facility] (DEFAULT)[address] [place] [address] 20975 Cholesterol in LDL [Mass/Vol] 80 mg/dL Normal 1-100 [facility] Comment on above: Result Comment: Opti mal - Less than 100 mg/dL Borderline high risk - 130-159 mg/dL High risk - 160-189 mg/dL. Performed By: #### 1 7882202, 8146376067, 447997331, 7778795, 1991479993, 4821683, 4016038 ####[facility] (DEFAULT)[address] [place] [address] 76496 Cholesterol.total/Judith sterol in HDL [Mass ratio] 3.8 {ratio} Normal 0.0-4.5 [facility] Comment on above: Performed By: #### 1 2873250, 2812502928, 455097725, 3934095, 6133232827, 1479572, 4508786 ####[facility] (DEFAULT)[address] [place] [address] 07472 Triglyceride [Mass/Vol] 187.0 mg/dL High 0.0-150.0 [facility] Comment on above: Performed By: #### 1 1613107, 7053113911, 443704471, 0765547, 2224447929, 6195487, 2103427 ####[facility] (DEFAULT)[address] [place] [address] 95614 VLDL. 37 mg/dL Normal 5-40 [facility] Comment on above: Performed By: #### 1 4830481, 3393433250, 215048425, 1494839, 7858015184, 5956438, 2378342 ####[facility] (DEFAULT)[address] [place] [address] 15843 TSH w/ Reflex to FT4on 03-15 TSH Qn 3.27 m[IU]/L Normal 0.45-5.33 [facility] Comment on above: Result Comment: Gene ral Population (males and non- females, aged 21-88) 0.45 - 5.33 Females, 1st Trimester 0.05 - 3.70 Females, 2nd Trimester 0.31 - 4.35 Females, 3rd Trimester 0.41 - 5.18 Performed By: #### 1 5588841, 1236077656, 748636867, 4749871, 9765161969, 7746789, 0745178 ####[facility] (DEFAULT)[address] [place] [address] Uric Acidon 03-15-2020 Urate [Mass/Vol] 5.7 mg/dL Normal 2.6-8.0 [facility] Comment on above: Performed By: #### 1 3292770, 8830696788, 986317935, 8423789, 5660454692, 5873803, 8930212 ####[facility] (DEFAULT)[address] [place] [address] 14615 Coding Summaryon 02-26-2020 Coding Summary CODING DATE: 02/26/2020 [facility] STATUS: Home PAYOR: Medicare MC ADMIT [...] [address]' Date Saved: 02/26/2020 01:37 pm Normal [facility] Coding Summary CODING DATE: 02/26/2020 [facility] STATUS: Home PAYOR: Medicare MC APC [...] [address]' Date Saved: 02/26/2020 01:35 pm Normal [facility] .Auto Diff 02-22-2020 Auto [place] % 7 % Normal 12 [facility] Comment on above: Performed By: #### 1 337389451, 3814149329, 9345924, 5045330210, 83247045, 9296088, 8502590223 ####[facility] (DEFAULT)[address] [place] [address] 09277 Baso Abs# 0.0 x10 Normal 0.0-0.2 [facility] Comment on above: Performed By: #### 1 474664262, 6050332538, 4570526, 8827100541, 00574591, 5557538, 3485618629 ####[facility] (DEFAULT)[address] [place] [address] 26878 Basophils/100 WBC (Bld) 0.4 % Normal 0.2-2.0 [facility] Comment on above: Performed By: #### 1 211780202, 1062785534, 3272975, 8897593699, 98578313, 3212574, 8281640058 ####[facility] (DEFAULT)[address] [place] [address] 75882 Eos Abs# 0.1 x10 Normal 0.0-0.4 [facility] Comment on above: Performed By: #### 1 274778986, 0837192760, 1488266, 3577984539, 47532535, 1143472, 7321119357 ####[facility] (DEFAULT)[address] [place] [address] 48370 Eosinophils/100 WBC (Bld) 2.3 % Normal 0.9-4.0 [facility] Comment on above: Performed By: #### 1 325324623, 8325604691, 1644843, 0497755210, 24979224, 5563185, 3347436857 ####[facility] (DEFAULT)[address] [place] [address] 28161 Lymph Abs# 1.1 x10 Low 1.3-2.9 [facility] Comment on above: Performed By: #### 1 380894620, 0936850028, 5106125, 3480590836, 28304577, 3035468, 2359995862 ####[facility] (DEFAULT)[address] [place] [address] 00925 Lymphocytes/100 WBC (Bld) 21 % Normal 14-48 [facility] Comment on above: Performed By: #### 1 340472810, 3955504265, 5885106, 3649060955, 19447750, 0827244, 4479156910 ####[facility] (DEFAULT)[address] [place] [address] 19531 [place] Abs# 0.4 x10 Normal 0.0-0.8 [facility] Comment on above: Performed By: #### 1 925004166, 1865208341, 1753166, 1780786433, 09693983, 5985702, 9259100564 ####[facility] (DEFAULT)[address] [place] [address] 88000 Neut Abs# 3.6 x10 Normal 1.5-9.2 [facility] Comment on above: Performed By: #### 1 773532093, 9601284205, 7288961, 9371181783, 02419207, 4364101, 7116063305 ####[facility] (DEFAULT)[address] [place] [address] 25832 Neutrophils/100 WBC (Bld) 69 % Normal 44-88 [facility] Comment on above: Performed By: #### 1 647772773, 4079655484, 3061930, 8585423563, 73073954, 4914869, 2558453915 ####[facility] (DEFAULT)[address] [place] [address] [facility] Standardon 02-22-2020 eGFR Non AA >60 Invalid Interpretation Code [facility] Comment on above: Performed By: #### 1 201745922, 4204821000, 0349848, 2268399281, 10000336, 8187446, 3563290386 ####[facility] (DEFAULT)[address] [place] [address] 93647 eGFR AA >60 Invalid Interpretation Code [facility] Comment on above: Result Comment: Marine Operations Coordinator kenny Kidney disease could be indicated at eGFRs of less than 60 ml/min/1.73m2. Kidney Failure is indicated at less than 15 ml/min/1.73m2 Performed By: #### 1 888585721, 8315036572, 8685980, 3359286958, 94567100, 4524513, 9613635029 ####[facility] (DEFAULT)[address] [place] [address] 16848 Anion gap [Moles/Vol] 15.0 mmol/L Normal 5.0-19.0 [facility] Comment on above: Performed By: #### 1 613312417, 8789696884, 4643747, 7068583459, 01078107, 1309509, 2053684174 ####[facility] (DEFAULT)[address] [place] [address] 10300 Calcium [Mass/Vol] 9.2 mg/dL Normal 8.9-10.3 [facility] Comment on above: Performed By: #### 1 001974161, 8239025337, 1819075, 2000084307, 99515606, 6838302, 1884784033 ####[facility] (DEFAULT)[address] [place] [address] 11172 Chloride [Moles/Vol] 96 mmol/L Low 101-111 [facility] Comment on above: Performed By: #### 1 796314013, 3121602794, 9951659, 2989760935, 96605813, 0922925, 2370459962 ####[facility] (DEFAULT)[address] [place] [address] 38870 CO2 [Moles/Vol] 23 mmol/L Normal 21-32 [facility] Comment on above: Performed By: #### 1 970224513, 7529923497, 5827329, 7659565916, 07195943, 9073930, 8599609077 ####[facility] (DEFAULT)[address] [place] [address] 46401 Creatinine [Mass/Vol] 0.80 mg/dL Normal 0.60-1.30 [facility] Comment on above: Performed By: #### 1 764940203, 8339094776, 2329391, 7963477870, 58227551, 5238647, 9742732181 ####[facility] (DEFAULT)[address] [place] [address] 14855 Glucose [Mass/Vol] 111.0 mg/dL Normal 74.0-118.0 [facility] Comment on above: Performed By: #### 1 785939518, 3574620370, 5863602, 2323833821, 29666731, 4046236, 8282106201 ####[facility] (DEFAULT)[address] [place] [address] 54117 Osmolality 262 mOsm/L Invalid Interpretation Code [facility] Comment on above: Performed By: #### 1 674698464, 6818212384, 4476746, 2959725386, 52152303, 8474817, 8133849037 ####[facility] (DEFAULT)[address] [place] [address] 48127 Potassium [Moles/Vol] 4.7 mmol/L Normal 3.6-5.1 [facility] Comment on above: Performed By: #### 1 994231078, 0956895750, 7397803, 2296643980, 14929917, 3216858, 6865452290 ####[facility] (DEFAULT)[address] [place] [address] 31096 Sodium [Moles/Vol] 129.0 mmol/L Low 136.0-144.0 [facility] Comment on above: Performed By: #### 1 074728403, 9744337081, 3007590, 7659066593, 32899740, 6504236, 4061915735 ####[facility] (DEFAULT)[address] [place] [address] 83519 Urea nitrogen [Mass/Vol] 20 mg/dL Normal 8-26 [facility] Comment on above: Performed By: #### 1 959657018, 1578702286, 3417338, 2860725519, 16586291, 2228690, 5252682215 ####[facility] (DEFAULT)[address] [place] [address] 39324 Urea nitrogen/Creatinine [Mass ratio] 25.0 mg/mg High 4.6-16.2 [facility] Comment on above: Performed By: #### 1 495326636, 3611052851, 0425139, 5797677086, 65469623, 8339580, 3468255207 ####[facility] (DEFAULT)[address] [place] [address] CBC w/ Auto Diffon 0 Erythrocyte distribution width (RBC) [Ratio] 12.8 % Normal 11.5-15.0 [facility] Comment on above: Performed By: #### 1 134990913, 2152333328, 0209181, 9223369418, 79328658, 3879565, 1532818524 ####[facility] (DEFAULT)[address] [place] [address] 24926 Hematocrit (Bld) [Volume fraction] 31.3 % Low 33.7-40.4 [facility] Comment on above: Performed By: #### 1 975054287, 7670751188, 3167213, 9182429729, 18529929, 2766488, 6531730884 ####[facility] (DEFAULT)[address] [place] [address] 08288 Hemoglobin (Bld) [Mass/Vol] 10.3 g/dL Low 11.3-15.9 [facility] Comment on above: Performed By: #### 1 410200740, 9478504572, 2196007, 1087464659, 83953691, 4854012, 0831113205 ####[facility] (DEFAULT)[address] [place] [address] 93485 Instr WBC 5.2 x10 Invalid Interpretation Code [facility] Comment on above: Performed By: #### 1 085063119, 1852024267, 4514072, 3267317205, 24953790, 7042250, 7226589064 ####[facility] (DEFAULT)[address] [place] [address] 39076 Man Diff? Auto Normal [facility] Comment on above: Performed By: #### 1 960944089, 2409970389, 2499275, 0692471741, 90743781, 9110051, 4450960260 ####[facility] (DEFAULT)[address] [place] [address] 92140 MCH (RBC) [Entitic mass] 32 pg Normal 24-34 [facility] Comment on above: Performed By: #### 1 330208718, 9042483424, 3210147, 5454259008, 18042573, 0075606, 5771394025 ####[facility] (DEFAULT)[address] [place] [address] 71671 MCHC (RBC) [Mass/Vol] 33 g/dL Normal 26-37 [facility] Comment on above: Performed By: #### 1 271503759, 4003943653, 6732339, 9953575455, 48474773, 1157170, 7023069513 ####[facility] (DEFAULT)[address] [place] [address] 16405 MCV (RBC) [Entitic vol] 98 fL Normal 81-100 [facility] Comment on above: Performed By: #### 1 899225457, 1364054594, 2155246, 7454651585, 03742100, 5958150, 7788444383 ####[facility] (DEFAULT)[address] [place] [address] 11939 Platelet 280 x10 Normal 138-427 [facility] Comment on above: Performed By: #### 1 669631183, 7959383468, 7001171, 4340179061, 17283541, 6610546, 3803750505 ####[facility] (DEFAULT)[address] [place] [address] 04150 Platelet mean volume (Bld) [Entitic vol] 8.8 fL Normal 6.3-10.2 [facility] Comment on above: Performed By: #### 1 799396375, 0959803457, 2448073, 1328316898, 43808016, 9515899, 7850750258 ####[facility] (DEFAULT)[address] [place] [address] 48784 RBC 3.19 x10 Low 3.70-5.30 [facility] Comment on above: Performed By: #### 1 777398919, 8296000764, 1845277, 8385565566, 84539146, 4963874, 3353790797 ####[facility] (DEFAULT)[address] [place] [address] 86522 WBC 5.2 x10 Normal 3.5-10.5 [facility] Comment on above: Performed By: #### 1 524451674, 8431548712, 6326757, 7500083329, 16313111, 4918790, 7389541373 ####[facility] (DEFAULT)[address] [place] [address] 78147 ED Clinical Summaryon 2019 ED Clinical Summary [facility] - Emergency Department [address] [place] [address] 30909 ED Clinical Summary PERSON INFORMATION Name: ALYCE DAVID Age: 64 Years Sex: FEMALE : 1955 MRN: Acct#: Visit Reason: Foot pain; RIGHT FOOT SWELLING Arrival: 02/22/2020 11:49:30 Discharge: 02/22/2020 13:50:00 LOS: 000 02:01 Check In: 02/22/2020 11:49:30 Checkout:02/22/2020 13:50:00 Address: [address] [place] [address] PCP: Aysha Clements MD PROVIDER INFORMATION Provider Role Assigned Unassigned [employer] ED 02/22/2020 11:50:[address] ADMIN[employer]RATOR Nurse 02/22/2020 11:54:20 02/22/2020 13:29:[address] ADMINISTRATOR Nurse 02/22/2020 13:29:28 VITALS INFORMATION Vital Sign [...] the me (more content not included)... Normal [facility] ED Note - Physicianon 2019 ED [...] effusion XR Fo (more content not included)... [facility] ED Note-Nursingon 02-22-2020 ED Note-Nursing Patient [...] advised her to come to the ED. [facility] ED Patient Summaryon 020 ED Patient Summary [facility] - Emergency Department [address] [place] [address] PATIENT DISCHARGE INSTRUCTIONS Patient Information Name: ALYCE DAVID Age: 64 Years Date of : 1955 Reason For Visit: Foot pain; RIGHT FOOT SWELLING Arrival Time: 02/22/2020 11:49:30 Primary Care Physician: Aysha Clements MD Attending Physician: Emir Salazar MD Comment: Visit Diagnosis: Diagnoses This Visit Anemia (D64.9) Foot pain ([id number]) Gout of big toe (M10.9) Hyponatremia (E87.1) Sprain of knee (S83.90XA) Prescription Information: If you have been given a prescription for narcotics, seek immediate medical attention if you have any difficulty breathing or any sudden status changes such as confusion and sleepiness. If you or anyone you know is experiencing suicidal thoughts, mental health, alcohol and/or drug addiction problems; contact the [facility] 10/02 Crisis Hotline -Text 4VJWZ ea 259411. If you received any narcotics, sedation, or [...] legal documents With: Address: When: Aysha Clements [address] [place] [address] Business (1) Within 3 to 5 days [...] concerns. Prescription has been electronically sent to [facility]. Medication Information: The exam and treatment you received today in the [facility] Emergency Department were for an urgent problem and are not intended as complete care. It is important for you to follow up with a doctor, nurse practitioner, or physician?s review assistant for ongoing care. If your symptoms [...] so we can reach you if necessary. [facility] Emergency Department has provided you with a complete list of medications post discharge. Please inform your superintendent oil well services/provider of your visit and for further instruction on these medications. Any specific questions regarding your chronic medications and dosages should be discussed with your primary care physician(s) and/or pharmacist. New Medications [facility] [facility], [address] [place], [place] [id number], [phone] acetaminophen-hydroco done ([place] 5 mg-325 mg oral tablet) 1 tab(s) [...] Type Com (more content not included)... Normal [facility] [facility] 02-22-2020 Tube Collected Yes Invalid Interpretation Code [facility] Comment on above: Performed By: #### 1 [id number] ####[facility] (DEFAULT)[address] [place] [address] U[facility] 02-22-2020 Urate [Mass/Vol] 9.4 mg/dL High 2.6-8.0 [facility] Comment on above: Performed By: #### 1 [id number] ####[facility] (DEFAULT)[address] [place] [address] XR Foot Complete Righton XR Foot Complete [...] MD 02/22/20 12:55 p Technologist: Lillian BRAY [facility] XR Knee Complete Lefton XR Knee [...] MD 02/22/20 12:55 p Technologist: Lillian BRAY [facility] Vital Signs Date Time Vital Sign Value Performing Clinician Facility 03-04-2025 15:30-0400 Body mass index (BMI) [Ratio] 35.39 kg/m2 [employer] DO Work Phone: [facility] [employer] 03-04-2025 15:30-0400 Body temperature 97.81 [degF] [facility] [facility] 03-04-2025 15:30-0400 Body weight 90.63 kg [employer] DO Work Phone: [facility] 03-04-2025 15:30-0400 Diastolic blood pressure 67 mm[Hg] [employer] DO Work Phone: [facility] 03-04-2025 15:30-0400 Heart rate 62 /min Sylvain Furlong DO Work Phone: [facility] [employer] [facility] 03-04-2025 15:30-0400 Respiratory rate 18 /min Sylvain Furlong DO Work Phone: [facility] [employer] [facility] 03-04-2025 15:30-0400 SaO2% (BldA) [Mass fraction] 96 % Sylvain Furlong DO Work Phone: [facility] [employer] [facility] 03-04-2025 15:30-0400 Systolic blood pressure 146 mm[Hg] Sylvain Furlong DO Work Phone: [facility] 02-04-2025 16:29-0400 Body mass index (BMI) [Ratio] 35.07 kg/m2 Sylvain Furlong DO Work Phone: [facility] [employer] [facility] 02-04-2025 16:29-0400 Body temperature 98.1 [degF] Sylvain Furlong DO Work Phone: [facility] [employer] [facility] 02-04-2025 16:29-0400 Body weight 89.81 kg Sylvain Furlong DO Work Phone: [facility] [employer] [facility] 02-04-2025 16:29-0400 Diastolic blood pressure 78 mm[Hg] Sylvain Furlong DO Work Phone: [facility] [employer] [facility] 02-04-2025 16:29-0400 Heart rate 65 /min Sylvain Furlong DO Work Phone: [facility] [employer] [facility] 02-04-2025 16:29-0400 Respiratory rate 18 /min Sylvain Furlong DO Work Phone: [facility] 02-04-2025 16:29-0400 SaO2% (BldA) [Mass fraction] 96 % Sylvain Furlong DO Work Phone: [facility] [employer] [facility] 02-04-2025 16:29-0400 Systolic blood pressure 136 mm[Hg] Sylvain Furlong DO Work Phone: [facility] 01-05-2025 16:10-0400 Body mass index (BMI) [Ratio] 34.97 kg/m2 Sylvain Furlong DO Work Phone: [facility] 01-05-2025 16:10-0400 Body weight 89.54 kg Sylvain Furlong DO Work Phone: [facility] 11-26-2024 15:47-0400 Body mass index (BMI) [Ratio] 34.65 kg/m2 Sylvain Furlong DO Work Phone: [facility] 11-26-2024 15:47-0400 Body temperature 97.59 [degF] Sylvain Furlong DO Work Phone: [facility] 11-26-2024 15:47-0400 Body weight 88.72 kg Sylvain Furlong DO Work Phone: [facility] 11-26-2024 15:47-0400 Diastolic blood pressure 60 mm[Hg] Sylvain Furlong DO Work Phone: [facility] 11-26-2024 15:47-0400 Heart rate 64 /min Sylvain Furlong DO Work Phone: [facility] 11-26-2024 15:47-0400 Respiratory rate 18 /min Sylvain Furlong DO Work Phone: [facility] 11-26-2024 15:47-0400 Systolic blood pressure 127 mm[Hg] Sylvain Furlong DO Work Phone: [facility] 10-27-2024 16:15-0400 Body mass index (BMI) [Ratio] 34.26 kg/m2 Sylvain Furlong DO Work Phone: [facility] 10-27-2024 16:15-0400 Body temperature 98.01 [degF] Sylvain Furlong DO Work Phone: [facility] 10-27-2024 16:15-0400 Body weight 87.73 kg Sylvain Furlong DO Work Phone: [facility] 10-27-2024 16:15-0400 Diastolic blood pressure 80 mm[Hg] Sylvain Furlong DO Work Phone: [facility] 10-27-2024 16:15-0400 Heart rate 80 /min Sylvain Furlong DO Work Phone: [facility] 10-27-2024 16:15-0400 Respiratory rate 18 /min Sylvain Furlong DO Work Phone: [facility] 10-27-2024 16:15-0400 SaO2% (BldA) [Mass fraction] 96 % Sylvain Furlong DO Work Phone: [facility] 10-27-2024 16:15-0400 Systolic blood pressure 157 mm[Hg] Sylvain Furlong DO Work Phone: [facility] 10-13-2024 15:32-0400 Body mass index (BMI) [Ratio] 32.56 kg/m2 Sylvain Furlong DO Work Phone: [facility] 10-13-2024 15:32-0400 Body weight 83.37 kg Sylvain Furlong DO Work Phone: [facility] 09-17-2024 16:11-0500 Body mass index (BMI) [Ratio] 32.42 kg/m2 Sylvain Furlong DO Work Phone: [facility] 09-17-2024 16:11-0500 Body weight 83.01 kg Sylvain Furlong DO Work Phone: [facility] 08-20-2024 18:11-0500 Body mass index (BMI) [Ratio] 32.38 kg/m2 Sylvain Furlong DO Work Phone: [facility] 08-20-2024 18:11-0500 Body temperature 98.4 [degF] Sylvain Furlong DO Work Phone: [facility] [employer] [facility] 08-20-2024 18:11-0500 Body weight 82.92 kg Sylvain Furlong DO Work Phone: [facility] [employer] [facility] 08-20-2024 18:11-0500 Diastolic blood pressure 83 mm[Hg] Sylavin Furlong DO Work Phone: [facility] [employer] [facility] 08-20-2024 18:11-0500 Heart rate 71 /min Sylvain Furlong DO Work Phone: [facility] [employer] [facility] 08-20-2024 18:11-0500 Respiratory rate 18 /min Sylvain Furlong DO Work Phone: [facility] [employer] [facility] 08-20-2024 18:11-0500 SaO2% (BldA) [Mass fraction] 96 % Sylvain Furlong DO Work Phone: [facility] 08-20-2024 18:11-0500 Systolic blood pressure 151 mm[Hg] Sylvain Furlong DO Work Phone: [facility] 07-19-2024 15:23-0500 Body mass index (BMI) [Ratio] 31.39 kg/m2 Sylvain Furlong DO Work Phone: [facility] [employer] [facility] 07-19-2024 15:23-0500 Body temperature 97.9 [degF] Sylvain Furlong DO Work Phone: [facility] [employer] [facility] 07-19-2024 15:23-0500 Body weight 80.38 kg Sylvain Furlong DO Work Phone: [facility] [employer] [facility] 07-19-2024 15:23-0500 Diastolic blood pressure 66 mm[Hg] Sylvain Furlong DO Work Phone: [facility] [facility] 07-19-2024 15:23-0500 Heart rate 58 /min Sylvain Furlong DO Work Phone: [facility] 07-19-2024 15:23-0500 Respiratory rate 18 /min Sylvain Furlong DO Work Phone: [facility] 07-19-2024 15:23-0500 SaO2% (BldA) [Mass fraction] 97 % Sylvain Furlong DO Work Phone: [facility] 07-19-2024 15:23-0500 Systolic blood pressure 125 mm[Hg] Sylvain Furlong DO Work Phone: [facility] 06-18-2024 12:05-0500 Body mass index (BMI) [Ratio] 31.74 kg/m2 Sylvain Furlong DO Work Phone: [facility] [facility] 06-18-2024 12:05-0500 Body weight 81.28 kg Sylvain Furlong DO Work Phone: [facility] 05-18-2024 22:33-0400 Body mass index (BMI) [Ratio] 32.2 kg/m2 Sylvain Furlong DO Work Phone: [facility] [employer] 05-18-2024 22:33-0400 Body temperature 98.01 [degF] Sylvain Furlong DO Work Phone: [facility] [facility] 05-18-2024 22:33-0400 Body weight 82.46 kg Sylvain Furlong DO Work Phone: [facility] 05-18-2024 22:33-0400 Diastolic blood pressure 76 mm[Hg] Sylvain Furlong DO Work Phone: [facility] 05-18-2024 22:33-0400 Heart rate 74 /min Sylvain Furlong DO Work Phone: [facility] 05-18-2024 22:33-0400 Respiratory rate 18 /min Sylvain Domingolong DO Work Phone: [facility] 05-18-2024 22:33-0400 SaO2% (BldA) [Mass fraction] 95 % Sylvain Furlong DO Work Phone: [facility] [facility] 05-18-2024 22:33-0400 Systolic blood pressure 124 mm[Hg] Sylvain Furlong DO Work Phone: [facility] 04-16-2024 14:22-0400 Body mass index (BMI) [Ratio] 33.73 kg/m2 Sylvain Furlong DO Work Phone: [facility] 04-16-2024 14:22-0400 Body weight 86.36 kg Sylvain Furlong DO Work Phone: [facility] 03-02-2024 15:25-0400 Body mass index (BMI) [Ratio] 32.2 kg/m2 Sylvain Furlong DO Work Phone: [facility] [facility] 03-02-2024 15:25-0400 Body weight 82.46 kg Sylvain Furlong DO Work Phone: [facility] [facility] 03-02-2024 15:25-0400 Diastolic blood pressure 71 mm[Hg] Sylvain Furlong DO Work Phone: [facility] 03-02-2024 15:25-0400 Heart rate 75 /min Sylvain Furlong DO Work Phone: [facility] [employer] [facility] 03-02-2024 15:25-0400 Systolic blood pressure 133 mm[Hg] Sylvain Furlong DO Work Phone: [facility] 02-06-2024 14:53-0400 Body temperature 98.01 [degF] Sylvain Furlong DO Work Phone: [facility] 02-06-2024 14:53-0400 Diastolic blood pressure 80 mm[Hg] Sylvain Furlong DO Work Phone: [facility] 02-06-2024 14:53-0400 Heart rate 72 /min Sylvain Furlong DO Work Phone: [facility] [facility] 02-06-2024 14:53-0400 Respiratory rate 18 /min Sylvain Furlong DO Work Phone: [facility] 02-06-2024 14:53-0400 SaO2% (BldA) [Mass fraction] 97 % Sylvain Furlong DO Work Phone: [facility] 02-06-2024 14:53-0400 Systolic blood pressure 130 mm[Hg] Sylvain Furlong DO Work Phone: [facility] [employer] [facility] 02-03-2024 12:13-0400 Body temperature 97.5 [degF] Sylvain Furlong DO Work Phone: [facility] [facility] 02-03-2024 12:13-0400 Diastolic blood pressure 80 mm[Hg] Sylvain Furlong DO Work Phone: [facility] 02-03-2024 12:13-0400 Heart rate 76 /min Sylvain Furlong DO Work Phone: [facility] [facility] 02-03-2024 12:13-0400 Respiratory rate 18 /min Sylvain Furlong DO Work Phone: [facility] 02-03-2024 12:13-0400 SaO2% (BldA) [Mass fraction] 96 % Sylvain Furlong DO Work Phone: [facility] 02-03-2024 12:13-0400 Systolic blood pressure 127 mm[Hg] Sylvain Furlong DO Work Phone: [facility] 12-14-2023 04:04-0400 Diastolic blood pressure 80 mm[Hg] Moises Donaldson DO Work Phone: [facility] 12-14-2023 04:04-0400 Heart rate 92 /min Moises Donaldson DO Work Phone: [facility] 12-14-2023 04:04-0400 Respiratory rate 18 /min Moises Donaldson DO Work Phone: [employer] 12-14-2023 04:04-0400 SaO2% (BldA) [Mass fraction] 98 % Moises Donaldson DO Work Phone: [facility] 12-14-2023 04:04-0400 Systolic blood pressure 159 mm[Hg] Moises Donaldson DO Work Phone: [facility] 12-13-2023 20:34-0400 Body temperature 98.91 [degF] Moises Donaldson DO Work Phone: [facility] 12-13-2023 19:18-0400 Body weight 72.58 kg Moises Donaldson DO Work Phone: [facility] 08-20-2023 13:55-0500 Body height 162.56 cm Liliana Callemond Other [employer] Other 08-20-2023 13:55-0500 Body mass index (BMI) [Ratio] 30.52 kg/m2 Liliana Callemond Other [employer] Other 08-20-2023 13:55-0500 Body temperature 99.1 [degF] Liliana Callemond Other [employer] Other 08-20-2023 13:55-0500 Body weight 80.65 kg Liliana Callemond Other [employer] Other 08-20-2023 13:55-0500 Diastolic blood pressure 86 mm[Hg] Liliana Callemond Other [employer] Other 08-20-2023 13:55-0500 Respiratory rate 18 /min Liliana Callemond Other [employer] Other 08-20-2023 13:55-0500 SaO2% (BldA) [Mass fraction] 97 % Liliana Willett Other [facility] [employer] Other 08-20-2023 13:55-0500 Systolic blood pressure 156 mm[Hg] Liliana Willett Other [facility] [employer] Other 06-01-2022 13:17-0500 Diastolic blood pressure 76 mm[Hg] MD Aysha Clements Work Phone: [facility] 06-01-2022 13:17-0500 Heart rate 95 /min MD Aysha Clements Work Phone: [facility] 06-01-2022 13:17-0500 Respiratory rate 18 /min MD Aysha Clements Work Phone: [facility] 06-01-2022 13:17-0500 SaO2% (BldA) [Mass fraction] 94 % MD Aysha Clements Work Phone: [facility] 06-01-2022 13:17-0500 Systolic blood pressure 128 mm[Hg] MD Aysha Clements Work Phone: [facility] 06-01-2022 06:00-0500 Body temperature 97.2 [degF] MD Aysha Clements Work Phone: [facility] 06-01-2022 05:59-0500 Body height 160.02 cm MD Aysha Clements Work Phone: [facility] 06-01-2022 05:59-0500 Body weight 88.5 kg MD Aysha Clements Work Phone: [facility] 10-30-2021 10:47-0400 Body height 162 cm Carl Patel MD Work Phone: [facility] 10-30-2021 10:47-0400 Body temperature 98.6 [degF] Carl Patel MD Work Phone: [facility] 10-30-2021 10:47-0400 Diastolic blood pressure 67 mm[Hg] Carl Patel MD Work Phone: [facility] 10-30-2021 10:47-0400 Heart rate 90 /min Carl Patel MD Work Phone: [facility] 10-30-2021 10:47-0400 Respiratory rate 20 /min Carl Patel MD Work Phone: [facility] 10-30-2021 10:47-0400 SaO2% (BldA) [Mass fraction] 91 % Carl Patel MD Work Phone: [facility] 10-30-2021 10:47-0400 Systolic blood pressure 132 mm[Hg] Carl Patel MD Work Phone: [facility] 10-16-2021 10:58-0400 Body height 162 cm Carl Patel MD Work Phone: [facility] 10-16-2021 10:58-0400 Body temperature 97.7 [degF] Carl Patel MD Work Phone: [facility] 10-16-2021 10:58-0400 Body weight 77.11 kg Carl Patel MD Work Phone: [facility] 10-16-2021 10:58-0400 Diastolic blood pressure 67 mm[Hg] Carl Patel MD Work Phone: [facility] 10-16-2021 10:58-0400 Heart rate 116 /min Carl Patel MD Work Phone: [facility] 10-16-2021 10:58-0400 Respiratory rate 18 /min Carl Patel MD Work Phone: [facility] 10-16-2021 10:58-0400 SaO2% (BldA) [Mass fraction] 91 % Carl Patel MD Work Phone: [facility] 10-16-2021 10:58-0400 Systolic blood pressure 112 mm[Hg] Carl Patel MD Work Phone: [facility] Encounters Encounter Date Encounter Type Care Provider Facility Start: 03-09-2025 End: 03-09-20[facility] Start: 03-09-2025 End: 03-09-2025 Subsequent hospital visit by physician [facility] MARVIN[facility]IDGET Start: 03-04-2025 End: 03-04-2025 Continuing Care Sylvain Gonzalez DO Work Phone: [facility] Comment on above: Excoriation (skin-pi cking) disorder (Primary Dx); Essential hypertension; Multiple open wounds of face, subsequent encounter; Moderate dementia with other behavioral disturbance, unspecified dementia type (CMS-HCC) Start: 02-04-2025 End: 02-04-2025 ambulatory Sylvain Gonzalez DO Work Phone: [facility] Comment on above: Type 2 diabetes rashi itus without complication, without long- term current use of insulin (CMS-HCC) (Primary Dx); Multiple open wounds of face, subsequent encounter; Moderate dementia with other behavioral disturbance, unspecified dementia type (CMS-HCC); Thrombocytopenia Start: 01-05-2025 End: 01-05-2025 Continuing Care Sylvain Gonzalez DO Work Phone: [facility] Comment on above: Moderate dementia wi th other behavioral disturbance, unspecified dementia type (CMS-HCC) (Primary Dx); Anemia, unspecified type; Hyponatremia; Excoriation (skin-picking) disorder; Multiple open wounds of face, subsequent encounter Start: 11-26-2024 End: 11-28-2024 Continuing Care Sylvain Gonzalez DO Work Phone: [facility] Comment on above: Moderate dementia wi th other behavioral disturbance, unspecified dementia type (CMS-HCC) (Primary Dx); Multiple open wounds of face, subsequent encounter; Excoriation (skin-picking) disorder Start: 10-27-2024 End: 10-27-2024 ambulatory Sylvain Gonzalez DO Work Phone: [facility] Comment on above: Multiple open wounds of face, subsequent encounter (Primary Dx); Pica; Anemia, unspecified type Start: 10-13-2024 End: 10-17-2024 Continuing Care Sylvain Frederick Domingoabdulkadir DO Work Phone: [facility] Comment on above: Multiple open wounds of face, subsequent encounter (Primary Dx); Excoriation (skin-picking) disorder; Moderate dementia with other behavioral disturbance, unspecified dementia type ([facility]) Start: 09-17-2024 End: 09-17-2024 Bamboo flowsheet Kalen A Felter ORAL THERAPIST-EXERCISE PHYSIOLOGIST CERTIFIED Work Phone: [facility] Start: 09-17-2024 End: 09-17-2024 Bamboo flowsheet Kalen A Felter ORAL THERAPIST-EXERCISE PHYSIOLOGIST CERTIFIED Work Phone: [facility] Start: 09-17-2024 End: 09-17-2024 Continuing Care Sylvain Gonzalez DO Work Phone: [facility] Comment on above: Moderate dementia wi th other behavioral disturbance, unspecified dementia type ([facility]) (Primary Dx); Excoriation (skin-picking) disorder; Multiple open wounds of face, subsequent encounter Start: 09-17-2024 End: 09-17-2024 Office outpatient visit 15 minutes Kalen A Felter ORAL THERAPIST-EXERCISE PHYSIOLOGIST CERTIFIED Work Phone: [facility] Comment on above: Prurigo nodularis (P rimary Dx); Staphylococcosis Start: 08-23-2024 End: 08-23-2024 Bamboo flowsheet Kalen A Felter ORAL THERAPIST-EXERCISE PHYSIOLOGIST CERTIFIED Work Phone: [facility] Start: 08-23-2024 End: 08-23-2024 Bamboo flowsheet Kalen A Felter ORAL THERAPIST-EXERCISE PHYSIOLOGIST CERTIFIED Work Phone: [facility] Start: 08-23-2024 End: 08-23-2024 ambulatory KALEN A FELTER Not Available Start: 08-23-2024 End: 08-23-2024 Office outpatient new 30 minutes Kalen A Felter ORAL THERAPIST-EXERCISE PHYSIOLOGIST CERTIFIED Work Phone: [facility] Comment on above: Prurigo nodularis (P rimary Dx); Impetigo Start: 08-20-2024 End: 08-25-2024 Continuing Care Sylvain Gonzalez DO Work Phone: [facility] Comment on above: Moderate dementia wi th other behavioral disturbance, unspecified dementia type (CMS-HCC) (Primary Dx); Excoriation (skin-picking) disorder; Multiple open wounds of face, subsequent encounter Start: 07-19-2024 End: 07-19-2024 ambulatory Sylvain Gonzalez [employer] Work Phone: [facility] Comment on above: Moderate dementia wi th other behavioral disturbance, unspecified dementia type (CMS-HCC) (Primary Dx); Other abnormalities of gait and mobility; Multiple open wounds of face, subsequent encounter; Muscle weakness (generalized) Start: 06-18-2024 End: 06-18-2024 Continuing Care Sylvain Gonzalez [employer] Work Phone: [facility] Comment on above: Multiple open wounds of face, subsequent encounter (Primary Dx); Moderate dementia with other behavioral disturbance, unspecified dementia type (CMS-HCC); Excoriation (skin-picking) disorder Start: 05-18-2024 End: 06-01-2024 Continuing Care Sylvain Gonzalez [employer] Work Phone: [facility] Comment on above: Excoriation (skin-pi cking) disorder (Primary Dx); Moderate dementia with other behavioral disturbance, unspecified dementia type (CMS-HCC); Essential hypertension Start: 04-16-2024 End: 04-16-2024 ambulatory Sylvain Gonzalez [employer] Work Phone: [facility] Comment on above: Moderate dementia wi th other behavioral disturbance, unspecified dementia type (CMS-HCC) (Primary Dx); Cellulitis of great toe of right foot; Onychomycosis of right great toe Start: 04-13-2024 End: 04-14-2024 Emergency department patient visit BENJY SCHWARTZ [facility] Start: 04-13-2024 End: 04-14-2024 Emergency department patient visit LANG GRAHAM [facility] Start: 04-13-2024 End: 04-14-2024 Emergency department patient visit BENJY SCHWARTZ [facility] Start: 03-02-2024 End: 03-03-2024 Continuing Care Sylvain Gonzalez [employer] Work Phone: [facility] Comment on above: Multiple open wounds of face, initial encounter (Primary Dx); Moderate dementia with other behavioral disturbance, unspecified dementia type (CMS-HCC); Obsessive-compulsive disorder, unspecified type Start: 02-06-2024 End: 02-06-2024 ambulatory Sylvain Gonzalez DO Work Phone: [facility] Comment on above: Moderate dementia wi th other behavioral disturbance, unspecified dementia type (CMS-HCC) (Primary Dx); Dry gangrene (CMS-HCC); Spontaneous rupture of extensor tendons, right ankle and foot; Acute cystitis without hematuria; Open wound of right great toe without damage to nail, subsequent encounter; Muscle weakness (generalized); Other abnormalities of gait and mobility; Hyponatremia; Anemia, unspecified type Start: 02-03-2024 End: 02-03-2024 ambulatory Sylvain Gonzalez [employer] Work Phone: [facility] Comment on above: Acute cystitis witho ut hematuria (Primary Dx); Essential hypertension; Dementia with other behavioral disturbance, unspecified dementia severity, unspecified dementia type (CMS-HCC); Open dislocation of great toe of right foot, subsequent encounter; Spontaneous rupture of extensor tendons, right ankle and foot Start: 12-26-2023 End: 12-30-2023 Evaluation and management of inpatient CHERRY GONZALEZ [facility] Start: 12-24-2023 End: 12-25-2023 Emergency department patient visit KENZIE CRISTINA [facility] Start: 12-13-2023 End: 12-14-2023 Emergency department patient visit Physician Haven Benavides [facility] Start: 12-13-2023 End: 12-14-2023 Emergency department patient visit Moises Donaldson DO Work Phone: [facility] Comment on above: Homelessness (Primar y Dx) Start: 08-20-2023 End: 08-20-2023 ambulatory Liliana Willett Other [employer] Other Start: 08-20-2023 Office outpatient vi sit 15 minutes Liliana Willett [facility] Start: 06-01-2022 End: 06-04-2022 Evaluation and management of inpatient Aysha Clements Facility:[facility] Start: 06-01-2022 Evaluation and management of inpatient MD Aysha Clements Work Phone: [facility] Start: 11-15-2021 End: 11-15-2021 Patient encounter procedure Dottie Cade [facility] Start: 10-30-2021 End: 10-30-2021 ambulatory Carl Patel MD Work Phone: Hematology/Oncology Comment on above: Normocytic anemia (P rimary Dx); Rash and nonspecific skin eruption; Leukocytosis, unspecified type Start: 10-30-2021 End: 10-30-2021 Patient encounter procedure Carl Patel MD Work Phone: [facility] Start: 10-16-2021 End: 10-16-2021 Subsequent hospital visit by physician General Aurelio South Mc Work Phone: Radiology Comment on above: Cough [R05.9] Start: 10-16-2021 End: 10-16-2021 ambulatory Carl Patel MD Work Phone: Hematology/Oncology Comment on above: Normocytic anemia (P rimary Dx); Cough; Prolonged pt (prothrombin time) Start: 10-16-2021 End: 10-16-2021 Patient encounter procedure Carl Patel MD Work Phone: [facility] Start: 10-15-2021 Chart abstracting Carl diamond MD Work Phone: Hematology/Oncology Start: 10-09-2021 End: 10-09-2021 ambulatory Matthew Laird Facility:[facility] Start: 09-25-2021 End: 09-30-2021 Evaluation and management of inpatient [facility] Facility:[facility] Procedures Date Procedure Procedure Detail Performing Clinician Start: 03-09-2025 Basic metabolic pane l calcium total Gabriel Banerjee MD Work Phone: Start: 03-09-2025 Lipid panel Gabriel hinkle MD Work Phone: Start: 03-08-2025 Urinalysis microscop ic only Gabriel Banerjee MD Work Phone: Start: 03-08-2025 Urnls dip stick/tabl et rgnt auto w/o microscopy Gabriel Banerjee MD Work Phone: Start: 12-14-2023 Assay of troponin quantitative Moises Donaldson DO Work Phone: Start: 12-13-2023 Drug tst prsmv instr mnt chem analyzers pr date Moises Donaldson DO Work Phone: Start: 12-13-2023 Urnls dip stick/tabl et rgnt auto w/o microscopy Moises Donaldson DO Work Phone: Start: 12-13-2023 Influenza virus A an d B RNA and SARS-CoV-2 (COVID-19) N gene panel - Respiratory specimen by EN with probe detection Moises Donaldson DO Work Phone: Start: 12-13-2023 Ecg routine ecg w/le ast 12 lds w/i&r Moises Donaldson DO Work Phone: Start: 12-13-2023 Ct head/brain w/o co ntrast material Moises Donaldson DO Work Phone: Start: 12-13-2023 Radiologic exam ches t single view Moises Donaldson DO Work Phone: Start: 12-13-2023 Anion gap [Moles/Vol] J ohmaame Donaldson DO Work Phone: Start: 12-13-2023 Assay of ethanol Moises Donaldson DO Work Phone: Start: 12-13-2023 End: 12-13-2023 Basic metabolic panel calcium total Moises Donaldson DO Work Phone: Start: 12-13-2023 GLOMERULAR FILTRATIO N RATE, ESTIMATED Moises Donaldson DO Work Phone: Start: 12-13-2023 Hepatic function panel Moises Donaldson DO Work Phone: Start: 10-16-2021 Radiologic exam ches t 2 views Carl Patel MD Work Phone: section Dottie Cade Colonoscopy Dottie Cade SARS Antigen (LFIA) MD Aysha Clements Work Phone: Plan of Treatment Date Care Activity Detail Author Start: 03-09-2030 Lipid panel Lipids [facility] [facility] Start: 2028 Respiratory Syncytia l Virus (RSV) or age 60 yrs+ (1 - 1-dose 75+ series) Respiratory Syncytial Virus (RSV) or age 60 yrs+ (1 - 1-dose 75+ series) [facility] Start: 2028 RSV Vaccine (1 - 1-d ose 75+ series) RSV Vaccine (1 - 1-dose 75+ series) [facility] Start: 02-04-2026 Adult BMI Screening Adult BMI Screen ing [employer] Start: 02-04-2026 Statin Use: Diabetic Statin Use: Jaja glasgow [facility] [facility] Start: 11-26-2025 Adult BMI Screening Adult BMI Screen ing [employer] [facility] Start: 10-27-2025 Adult BMI Screening Adult BMI Screen ing [employer] [facility] Start: 10-13-2025 Adult BMI Screening Adult BMI Screen ing [employer] Start: 09-17-2025 Adult BMI Screening Adult BMI Screen ing [employer] [facility] Start: 08-20-2025 Adult BMI Screening Adult BMI Screen ing [facility] Start: 07-19-2025 Adult BMI Screening Adult BMI Screen ing [facility] Start: 06-18-2025 Adult BMI Screening Adult BMI Screen ing [facility] Start: 05-18-2025 Adult BMI Screening Adult BMI Screen ing [facility] Start: 04-16-2025 Adult BMI Screening Adult BMI Screen ing [facility] Start: 04-13-2025 Tobacco Screening Tobacco Screening [facility] Start: 03-21-2025 Influenza vaccination Influenza Vacc ine [facility] Start: 02-18-2025 Influenza vaccination [facility] (# [facility] Start: 01-22-2025 Screening for malign ant neoplasm of colon [facility] Start: 12-25-2024 Depression Screen Depression Screen [facility] Start: 12-23-2024 Tobacco Screening Tobacco Screening [facility] Start: 11-16-2024 End: 11-16-2024 Patient encounter procedure 11/16/2024 1:55 PM EDT Office Visit [facility] [address] [place] [address] Kalen Donohue, ORAL THERAPIST-EXERCISE PHYSIOLOGIST CERTIFIED [address] [place] [address] [facility] Start: 10-30-2024 DIABETES SCREEN DIABETES SCREEN [facility] Start: 10-30-2024 Diabetes Screening Diabetes Screenin [facility] Start: 10-16-2024 DIABETES SCREEN DIABETES SCREEN [facility] Start: 07-21-2024 Annual Wellness Visi t (Medicare Advantage) Annual Wellness Visit (Medicare Advantage) [facility] Start: 07-02-2024 Adult BMI Screening Adult BMI Screen ing [facility] Start: 03-21-2024 COVID-19 Vaccine ( season) COVID-19 Vaccine ( season) [facility] Start: 03-21-2024 COVID-19 Vaccine ( season) COVID-19 Vaccine ( season) [facility] Start: 03-21-2024 Covid-19 Vaccine ( season) Covid-19 Vaccine ( season) [facility] Start: 03-21-2024 Influenza vaccination [facility] Start: 02-19-2024 Influenza vaccination Flu vacc ine (Season Ended) [facility] Start: 07-21-2023 Advance Directive Discussion Advance Directive Discussion [facility] Start: 03-21-2023 COVID-19 Vaccine () COVID-19 Vaccine ( season) [facility] Start: 06-01-2022 Hospital admission [facility] Start: 06-01-2022 Vitamin D, 25-hydrox y measurement [facility] Start: 06-01-2022 [facility] Start: 03-21-2022 Influenza vaccination INFLUENZ A (Season Ended) [facility] Start: 10-30-2021 End: 12-30-2021 MYELOPROLIFERATIVE NEOPLASM PANEL BLOOD [facility] Work Phone: Comment on above: Expected: 10/30/2021 , Expires: 12/30/2021 Start: 10-30-2021 End: 12-30-2021 Nuclear Ab [Presence] in Serum by Immunoassay [facility] Work Phone: Comment on above: Expected: 10/30/2021 , Expires: 12/30/2021 Start: 10-16-2021 End: 12-16-2021 aPTT in Platelet poor plasma by Coagulation assay [facility] Work Phone: Comment on above: Expected: 10/16/2021 , Expires: 12/16/2021 Start: 10-16-2021 End: 12-16-2021 C reactive protein [Mass/volume] in Serum or Plasma [facility] Work Phone: Comment on above: Expected: 10/16/2021 , Expires: 12/16/2021 Start: 10-16-2021 End: 12-16-[address] [facility] Work Phone: Comment on above: Expected: 10/16/2021 , Expires: 12/16/2021 Start: 10-16-2021 End: 12-16-[address] [facility] Work Phone: Comment on above: Expected: 10/16/2021 , Expires: 12/16/2021 Start: 10-16-2021 End: 12-16-2021 Haptoglobin [Mass/volume] in Serum or Plasma [facility] Work Phone: Comment on above: Expected: 10/16/2021 , Expires: 12/16/2021 Start: 10-16-2021 End: 12-16-2021 IRON + TIBC [facility] Work Phone: Comment on above: Expected: 10/16/2021 , Expires: 12/16/2021 Start: 10-16-2021 End: 12-16-2021 MONOCLONAL PROTEIN, SERUM (BLOOD) [facility] Work Phone: Comment on above: Expected: 10/16/2021 , Expires: 12/16/2021 Start: 10-16-2021 End: 12-16-2021 PT panel - Platelet poor plasma by Coagulation assay [facility] Work Phone: Comment on above: Expected: 10/16/2021 , Expires: 12/16/2021 Start: 10-16-2021 End: 12-16-[address] [facility] Work Phone: Comment on above: Expected: 10/16/2021 , Expires: 12/16/2021 Start: 07-21-2021 ADVANCE DIRECTIVE DISCUSSION ADVANCE DIRECTIVE DISCUSSION [facility] Start: 03-21-2021 Influenza vaccination INFLUENZA (#1) [facility] Start: 03-15-2021 COVID-19 VACCINE (3 - Booster for Moderna series) COVID-19 VACCINE (3 - Booster for Moderna series) [facility] Start: 2018 BONE DENSITY BONE DENSITY [facility] Start: 2018 Fall Risk Screening Fall Risk Screen [facility] Start: 2018 Pneumococcal 65+ yea rs Vaccine (1 of 1 - PCV) Pneumococcal 65+ years Vaccine (1 of 1 - PCV) [facility] Start: 2018 Pneumococcal Vaccine : 65+ (1 of 1 - PCV) Pneumococcal Vaccine: 65+ (1 of 1 - PCV) [facility] Start: 2018 PNEUMOVAX AGE 65 AND OVER WITH 5YR LOOKBACK (#1) PNEUMOVAX AGE 65 AND OVER WITH 5YR LOOKBACK (#1) [facility] Start: 2018 Screening for osteoporosis Bone Dens ity Screening [facility] Start: 2013 Respiratory Syncytia l Virus (RSV) or age 60 yrs+ (1 - 1-dose 60+ series) Respiratory Syncytial Virus (RSV) or age 60 yrs+ (1 - 1-dose 60+ series) [facility] Start: 2008 Screening for osteoporosis DEX A (modify frequency per FRAX score) [facility] Start: 09-23-2003 Administration of va ricella zoster vaccine Zoster (Shingles) Vaccine (1 of 2) [facility] Start: 09-23-2003 Pneumococcal 50+ yea rs Vaccine (1 of 1 - PCV) Pneumococcal 50+ years Vaccine (1 of 1 - PCV) [facility] Start: 09-23-2003 Screening for malign ant neoplasm of breast Breast cancer screen [facility] Start: 09-23-2003 Shingles vaccine (1 of 2) [place] gles vaccine (1 of 2) [facility] Start: 09-23-2003 SHINGRIX VACCINE (1 of 2) [place] GRIX VACCINE (1 of 2) [facility] Start: 1998 COLOGUARD (FIT-DNA) COLOGUARD (FIT-D NA) [facility] Start: 1998 Colonoscopy COLONOSCOPY [facility] Start: 1998 COLORECTAL CANCER SCREENING CO LORECTAL CANCER SCREENING [facility] Start: [address] COLONOGRAPHY [facility] Start: 1998 DIABETES SCREEN DIABETES SCREEN [facility] Start: 1998 FECAL OCCULT BLOOD FECAL OCCULT BLOO D [facility] Start: 1998 Lipid panel Lipid Screening [facility] Start: 1998 LIPID SCREEN LIPID SCREEN [facility] Start: 1998 Screening for malign ant neoplasm of colon [facility] Start: 1998 SIGMOIDOSCOPY SIGMOIDOSCOPY [facility] Start: 1993 Lipid panel Lipids [facility] Start: 1993 Mammography MAMMOGRAM [facility] Start: 1993 Screening for malign ant neoplasm of breast [facility] Start: 1972 DTaP,Tdap and Td Vac cines (1 - Tdap) DTaP,Tdap and Td Vaccines (1 - Tdap) [facility] Start: 1972 DTaP/Tdap/Td vaccine (1 - Tdap) DTaP/Tdap/Td vaccine (1 - Tdap) [facility] Start: 1972 Urine microalbumin profile [facility] Start: 09-23-1971 Adult BMI Follow Up Plan Adult BMI Follow Up Plan [facility] Start: 09-23-1971 Anxiety Screening Anxiety Screening [facility] Start: 09-23-1971 Depression Screening Depression Scre ening [facility] Start: 09-23-1971 Diabetic foot examination Diabetic F oot Exam [facility] Start: 09-23-1971 HEPATITIS C SCREENING HEPATITIS C SC REENING [facility] Start: 09-23-1971 Hepatitis C screening B ON [facility] Start: 1965 Adult depression scr eening assessment DEPRESSION SCREENING [facility] Start: 1965 Depression Screen Depression Screen [facility] Start: 1958 COVID-19 VACCINE (1) COVID-19 VACCIN E (1) [facility] Start: 03-25-1954 COVID-19 Vaccine (#1) COVID-19 Vacci ne (#1) [facility] Start: 1953 Glaucoma screening Diabetic Op hthalmology Exam [facility] Start: 1953 Medicare Annual Well ness Visit Medicare Annual Wellness Visit [facility] Start: 1955 Tobacco Counseling Tobacco Counselin g [facility] Aerobic culture Aerobic culture Microbiology Timed Impetigo Release Upon Ordering for 1 Occurrences starting 08/23/2024 [facility] Work Phone: Comment on above: Release Upon Orderin g for 1 Occurrences starting 08/23/2024 End: 12-13-2023 Blood gas, arterial Blood gas, arterial Lab STAT One Time for 1 Occurrences starting 12/13/2023 until 12/13/2023 [employer] Comment on above: One Time for 1 Occur rences starting 12/13/2023 until 12/13/2023 Calculated LDL judith sterol level [facility] Work Phone: End: 10-30-2022 CBC W Auto Differential panel - Blood CBC + DIFF Lab Routine Normocytic anemia Once per month for 10 Occurrences starting 10/30/2021 until 10/30/2022 [facility] Work Phone: Comment on above: Once per month for 1 0 Occurrences starting 10/30/2021 until 10/30/2022 Cholesterol [Mass/vo lume] in Serum or Plasma [facility] Work Phone: Cholesterol in HDL [Mass/volume] in Serum or Plasma [facility] Work Phone: Cholesterol.total/Ch olester ol in HDL [Mass Ratio] in Serum or Plasma [facility] Work Phone: End: 10-30-2022 Comprehensive metabolic 2000 panel - Serum or Plasma COMP METABOLIC PANEL Lab Routine Normocytic anemia Once per month for 10 Occurrences starting 10/30/2021 until 10/30/2022, [address] [facility] Work Phone: Comment on above: Once per month for 1 0 Occurrences starting 10/30/2021 until 10/30/2022, 1 completed End: 03-08-2025 Culture, Urine [facility] Work Phone: Comment on above: Once for 1 Occurrenc es starting 03/08/2025 until 03/08/2025 EKG Altered Mental Status EKG Al tered Mental Status ECG STAT 12/13/2023 8:28 PM EDT [facility] Thyrotropin [Units/v olume] in Serum or Plasma [facility] Work Phone: Triglyceride [Mass/v olume] in Serum or Plasma [facility] Work Phone: Vitamin D, 25-hydrox y measurement [facility] Work Phone: VLDL cholesterol measurement [facility] Work Phone: [facility] Immunizations Immunization Date Immunization Notes Care Provider Fa ever 06-02-2022 Influenza, High-dose , Quadrivalent Sylvain Furlong DO Work Phone: [facility] 06-02-2022 influenza virus vaccine, unspecified formulation Sylvain Furlong DO Work Phone: [facility] 05-02-2020 Influenza, injectable, Madin Lorado Canine Kidney, preservative free, quadrivalent Carl Patel MD Work Phone: [facility] 05-02-2020 influenza virus vaccine, unspecified formulation [facility] Work Phone: [facility] 05-29-2018 Influenza, injectable, Madin [place] Canine Kidney, preservative free, quadrivalent Carl Patel MD Work Phone: [facility] 06-05-2016 influenza, seasonal, injectable Carl Patel MD Work Phone: [facility] 06-29-2015 influenza, seasonal, injectable, preservative free Carl Patel MD Work Phone: [facility] NEGATED: Highlighted row has not occurred!11-15-2021 SARS-CoV-2 (COVID-19) Ad26 vaccine, recombinant Dottie Cade [facility] Payers Date Payer Category Payer Medicaid [id number] 2024 Medicaid [id number] 2023 Medicare (Managed Care) ALFONZO SOLER [id number] 2021 Unknown ANTHEM BLUE CROS S AND BLUE SHIELD ANTHEM MEDIBLUE HMO [id number] 2021-Present [id number] [place] [address] [id number] 2021 Unknown ANTHEM BLUE CROS S AND BLUE SHIELD ANTHEM MEDICARE ADVANTAGE O [id number] 2021-Present [id number] [place] [address] [id number] 2021 Medicare [id number] 2021 Self-pay [id number] [id number] 2018 Medicare ANTHEM MEDICARE [employer] MEDICARE ADVANTAGE [id number] 2018-Present [phone] [id number] [place] [address] [id number] 2018 Medicare HMO ANTHEM MEDICARE [id number] 2018 Medicare [id number] 1955 Unknown [id number] 1955 Unknown [id number] 1953 Unknown [id number] 1286 1955 Unknown [id number] 1286 1953 Unknown [id number] 1286 1953 Unknown [id number] 1259 1955 Unknown [id number] 1259 Unknown [id number] Unknown [id number] 531 Unknown [id number] Worker's Compensation [id number] Social History Date Type Detail Facility Start: 10-15-2021 End: 06-01-2022 Tobacco smoking status [facility] Ex-smoker [facility] History of tobacco use Cigarette Smoker [facility] Start: 10-15-2021 End: 10-19-2021 Tobacco use and exposure Smokeless tobacco non-user [facility] Start: 10-15-2021 End: 10-16-2021 Alcohol intake Current drinker of alcohol (finding) [facility] Start: 1955 Sex Assigned At Not on file [facility] Start: 10-06-2021 End: 10-30-2021 Exposure to SARS-CoV-2 (event) Not sure [facility] Start: 11-08-2012 End: 01-21-2024 Sex Assigned At Female [facility] Start: 1955 Sex Assigned At Female F [facility] Start: 01-21-2024 Tobacco smoking stat [facility] Tobacco smoking consumption unknown [facility] Start: 11-08-2012 End: 01-21-2024 History of Social function [facility] History of tobacco use Current smoker [facility] Start: 10-19-2021 End: 08-23-2024 Tobacco smoking status [facility] Smokes tobacco daily [facility] History of tobacco use Tobacco U se Types Packs/Day Years Used Date Smoking Tobacco: Every Day Vaping/E-cigarettes Smokeless Tobacco: Never [facility] [employer] [facility] Start: 01-26-2024 End: 04-13-2024 Alcoholic beverage intake Ex-drinker (finding) [facility] Childcare Unknown [facility] Start: 08-30-2012 End: 02-23-2015 Sex Female (finding) [facility] Has the katena, or [employer] threatened to shut off services in your home in past 12Mo Yes [facility] How often to you hav e a drink containing alcohol? 2-4 times a month [facility] How many standard drinks containing alcohol do you have on a typical day? 3 or 4 [place] How often do you hav e 6 or more drinks on 1 occasion? Less than monthly [place] (I/We) worried senia er (my/our) food would run out before (I/we) got money to buy more. Often true [facility] Clinical Notes 02-22-2020 to 03-04-2025 Sylvain Gonzalez, DO - 03/04/2025 3:30 PM EDTSylvain Gonzalez, DO - 02/04/2025 4:27 PM EDTSylvain Gonzalez, DO - 01/05/2025 4:10 PM EDLubna Gonzalez, DO - 11/26/2024 3:47 PM EDT Note Date & Type Note Facility 03-04-2025 History of Present illness Narrative Patient Name: Alyce David Date of : 1955 Date of Service: 03/04/2025 Facility: [facility] Type of Visit: Acute Visit Subjective Alyce David is a 69 y.o. female seen today at half-way [facility] for problem and monthly visit. Alyce asked to see me because of the sores on her face. She wants to know what I can do to help her to stop picking at her sores. She currently takes he citalopram, hydroxyzine and trazodone for mental health problems. She does fixate in obsesses over smoking and when she can smoke. No other new problems reported by staff or patient. Allergies: Amlodipine Code Status: DNRCC-A BP 146/67 Pulse 62 Temp 36.6 C (97.8 F) Resp 18 Wt 90.6 kg (199 lb 12.8 oz) SpO2 96% BMI 35.39 kg/m Physical Exam Vitals reviewed. Constitutional: General: She is not in acute distress. HENT: Head: Normocephalic. Cardiovascular: Rate and Rhythm: Normal rate and regular rhythm. Pulses: Normal pulses. Heart sounds: Murmur heard. Pulmonary: Effort: Pulmonary effort is normal. No respiratory distress. Breath sounds: Normal breath sounds. No wheezing, rhonchi or rales. Musculoskeletal: Cervical back: Neck supple. Skin: Findings: Lesion (several open sores that are oozing blood and a few that are scabbed and a few healed over) present. Neurological: General: No focal deficit present. Mental Status: She is alert. She is disoriented. Psychiatric: Attention and Perception: Attention normal. Mood and Affect: Mood is anxious. Speech: Speech normal. Behavior: Behavior normal. Behavior is cooperative. Thought Content: Thought content is delusional. Cognition and Memory: Cognition is impaired. Memory is impaired. She exhibits impaired recent memory and impaired remote memory. Summary / Assessment / Plan 1. Excoriation (skin-picking) disorder 2. Essential hypertension 3. Multiple open wounds of face, subsequent encounter 4. Moderate dementia with other behavioral disturbance, unspecified dementia type ([facility]) I'm going to stop escitalopram and start sertraline 50 mg for OCD, skin picking. Can go up on dose if needed. Her BP is elevated today but has been ok in the past few months. Will monitor for now with no medication changes. Continue other orders as before. All medications reviewed and are medically necessary. ELECTRONICALLY SIGNED BY: Sylvain Gonzalez DO documented in this encounter [employer] 02-04-2025 History of Present illness Narrative Patient Name: Alyce David Date of : 1955 Date of Service: 02/04/2025 Facility: [facility] Type of Visit: Subsequent Visit Subjective Alyce David is a 69 y.o. female seen today at half-way facility for problem and monthly visit. Alyce had labs done and they were abnormal. Her glucose was a 324. Her A1c was high at 9.2%. She was not a previously known diabetic . Her lipid panel was essentially at goal. Her LDL was 100. She denies problems. She is only concerned about when she can vape next. Allergies: Amlodipine Code Status: DNRCC-A BP 136/78 Pulse 65 Temp 36.7 C (98.1 F) Resp 18 Wt 89.8 kg (198 lb) SpO2 96% BMI 35.07 kg/m Physical Exam Vitals reviewed. Constitutional: General: She is not in acute distress. HENT: Head: Normocephalic. Cardiovascular: Rate and Rhythm: Normal rate and regular rhythm. Pulses: Normal pulses. Heart sounds: Murmur heard. Pulmonary: Effort: Pulmonary effort is normal. No respiratory distress. Breath sounds: Normal breath sounds. No wheezing, rhonchi or rales. Musculoskeletal: Cervical back: Neck supple. Skin: Findings: Lesion (several open sores and a few that healed over) present. Neurological: General: No focal deficit present. Mental Status: She is alert. She is disoriented. Psychiatric: Attention and Perception: Attention normal. Mood and Affect: Mood is anxious. Speech: Speech normal. Behavior: Behavior normal. Behavior is cooperative. Thought Content: Thought content is delusional. Cognition and Memory: Cognition is impaired. Memory is impaired. She exhibits impaired recent memory and impaired remote memory. Labs: A1c 9.2% glucose 324 PLT 92 GFR 122 Summary / Assessment / Plan 1. Type 2 diabetes mellitus without complication, without long-term current use of insulin ([facility]) 2. Multiple open wounds of face, subsequent encounter 3. Moderate dementia with other behavioral disturbance, unspecified dementia type ([facility]) 4. Thrombocytopenia Metformin 500mg QD and Farxiga 5mg QD started. Will add atorvastatin 10 mkg QD. Check CMP, CBC and A1c in 4 months. Continue other orders as directed. All medications reviewed and are medically necessary. ELECTRONICALLY SIGNED BY: Sylvain Gonzalez DO documented in this encounter [facility] [employer] [facility] 01-05-2025 History of Present illness Narrative Patient Name: Alyce David Date of : 1955 Date of Service: 01/05/2025 Facility: [facility] Type of Visit: Subsequent Visit Subjective Alyce David is a 69 y.o. female seen today at half-way facility for regular visit. No new problems reported by staff or patient. She still has sores on her face but it is a little better. Allergies: Amlodipine Code Status: DNRCC-A Wt 89.5 kg (197 lb 6.4 oz) BMI 34.97 kg/m Physical Exam Vitals reviewed. Constitutional: General: She is not in acute distress. HENT: Head: Normocephalic. Cardiovascular: Rate and Rhythm: Normal rate and regular rhythm. Pulses: Normal pulses. Heart sounds: Murmur heard. Pulmonary: Effort: Pulmonary effort is normal. No respiratory distress. Breath sounds: Normal breath sounds. No wheezing, rhonchi or rales. Musculoskeletal: Cervical back: Neck supple. Skin: Findings: Lesion (several open sores and a few that healed over) present. Neurological: General: No focal deficit present. Mental Status: She is alert. She is disoriented. Psychiatric: Attention and Perception: Attention normal. Mood and Affect: Mood is anxious. Speech: Speech normal. Behavior: Behavior normal. Behavior is cooperative. Thought Content: Thought content is delusional. Cognition and Memory: Cognition is impaired. Memory is impaired. She exhibits impaired recent memory and impaired remote memory. Summary / Assessment / Plan 1. Moderate dementia with other behavioral disturbance, unspecified dementia type (CMS-HCC) 2. Anemia, unspecified type 3. Hyponatremia 4. Excoriation (skin-picking) disorder 5. Multiple open wounds of face, subsequent encounter Check CBC, CMP lipid panel on January. Medically stable. Continue current regimen. All medications reviewed and are medically necessary. ELECTRONICALLY SIGNED BY: Sylvain Gonzalez DO documented in this encounter [facility] 11-26-2024 History of Present illness Narrative Patient Name: Alyce David Date of : 1955 Date of Service: 11/26/2024 Facility: [facility] Type of Visit: Subsequent Visit Subjective Alyce David is a 69 y.o. female seen today at half-way facility for regular visit. No new problems reported by staff or patient. She still has facial lesions. She takes at them. She takes the gloves off when it did want so they stopped doing it. Allergies: Amlodipine Code Status: DNRCC-A BP 127/60 Pulse 64 Temp 36.4 C (97.6 F) Resp 18 Wt 88.7 kg (195 lb 9.6 oz) BMI 34.65 kg/m Physical Exam Vitals reviewed. Exam conducted with a coil wrapper present (Robert Watkins MS 3). Constitutional: General: She is not in acute distress. HENT: Head: Normocephalic. Cardiovascular: Rate and Rhythm: Normal rate and regular rhythm. Pulses: Normal pulses. Heart sounds: Murmur heard. Pulmonary: Effort: Pulmonary effort is normal. No respiratory distress. Breath sounds: Normal breath sounds. No wheezing, rhonchi or rales. Musculoskeletal: Cervical back: Neck supple. Skin: Findings: Lesion (multiple open sores) present. Neurological: General: No focal deficit present. Mental Status: She is alert. She is disoriented. Psychiatric: Attention and Perception: Attention normal. Mood and Affect: Mood is anxious. Speech: Speech normal. Behavior: Behavior normal. Behavior is cooperative. Thought Content: Thought content is delusional. Cognition and Memory: Cognition is impaired. Memory is impaired. She exhibits impaired recent memory and impaired remote memory. Assessment/Plan Summary / Assessment / Plan 1. Moderate dementia with other behavioral disturbance, unspecified dementia type (CMS-HCC) 2. Multiple open wounds of face, subsequent encounter 3. Excoriation (skin-picking) disorder Continue current regimen. Medically stable. All medications reviewed and are medically necessary. ELECTRONICALLY SIGNED BY: Sylvain Gonzalez DO documented in this encounter [facility] 10-27-2024 History of Present illness Narrative Patient Name: Alyce David Date of : 1955 Date of Service: 10/27/2024 Facility: [facility] Type of Visit: Acute Visit Subjective Alyce David is a 69 y.o. female seen today at half-way facility for problem visit. Alyce continues to pick at face. She says it hurts. She is tasting the blood and eating her stool per nursing but the patient denies it. There is blood on most of her fingers and she was seen with her finger in her mouth when I walked in. She is seeing dermatology. She is on hydroxyzine 25 mg once a day for itching. She is tolerating it well. Staff reports that she takes the gloves off at night shortly after having them put on. Allergies: Amlodipine Code Status: FULL CODE BP 157/80 Pulse 80 Temp 36.7 C (98 F) Resp 18 Wt 87.7 kg (193 lb 6.4 oz) SpO2 96% BMI 34.26 kg/m Physical Exam Vitals reviewed. Exam conducted with a coil wrapper present (Arsen Vasques MS 3). Constitutional: General: She is not in acute distress. Comments: She was picking at her face during the visit. HENT: Head: Normocephalic. Cardiovascular: Rate and Rhythm: Normal rate and regular rhythm. Pulses: Normal pulses. Heart sounds: Murmur heard. Pulmonary: Effort: Pulmonary effort is normal. No respiratory distress. Breath sounds: Normal breath sounds. No wheezing, rhonchi or rales. Musculoskeletal: Cervical back: Neck supple. Skin: Findings: Lesion (multiple open sores) present. Neurological: General: No focal deficit present. Mental Status: She is alert. She is disoriented. Gait: Gait abnormal. Comments: Ambulating in unit with a walker Psychiatric: Attention and Perception: Attention normal. Mood and Affect: Mood is anxious. Speech: Speech normal. Behavior: Behavior normal. Behavior is cooperative. Thought Content: Thought content is delusional. Cognition and Memory: Cognition is impaired. Memory is impaired. She exhibits impaired recent memory and impaired remote memory. Assessment/Plan Summary / Assessment / Plan 1. Multiple open wounds of face, subsequent encounter 2. Pica 3. Anemia, unspecified type Check serum Fe+ and CBC. Consider oven mitts or garden gloves. Increase hydroxyzine 25 mg to TID to help with the itching. All other medications reviewed and are medically necessary. ELECTRONICALLY SIGNED BY: Sylvain Gonzalez DO documented in this encounter [facility] [employer] 10-13-2024 History of Present illness Narrative Patient Name: Alyce David Date of : 1955 Date of Service: 10/13/2024 Facility: [facility] Type of Visit: Subsequent Visit Subjective Alyce David is a 69 y.o. female seen today at half-way facility for monthly and problem visit. Elizabeths face is getting worse. She is seeing dermatology. She picks at her face frequently. She has hydroxyzine prn at bedtime but isn't asking for it much. She denies new problems. Allergies: Amlodipine Code Status: FULL CODE Wt 83.4 kg (183 lb 12.8 oz) BMI 32.56 kg/m Physical Exam Vitals reviewed. Exam conducted with a coil wrapper present (Arsen Vasques MS 3). Constitutional: General: She is not in acute distress. Comments: She was picking at her face during the visit. HENT: Head: Normocephalic. Cardiovascular: Rate and Rhythm: Normal rate and regular rhythm. Pulses: Normal pulses. Heart sounds: Murmur heard. Pulmonary: Effort: Pulmonary effort is normal. No respiratory distress. Breath sounds: Normal breath sounds. No wheezing, rhonchi or rales. Abdominal: General: Bowel sounds are normal. Palpations: Abdomen is soft. Tenderness: There is no abdominal tenderness. Musculoskeletal: Cervical back: Neck supple. Skin: Findings: Lesion (multiple open sores) present. Neurological: General: No focal deficit present. Mental Status: She is alert. She is disoriented. Gait: Gait abnormal (ambulating in the unit with a 3 wheeled walker). Comments: Ambulating in unit with a walker Psychiatric: Attention and Perception: Attention normal. Mood and Affect: Mood is anxious. Speech: Speech normal. Behavior: Behavior normal. Behavior is cooperative. Thought Content: Thought content is delusional. Cognition and Memory: Cognition is impaired. Memory is impaired. She exhibits impaired recent memory and impaired remote memory. Summary / Assessment / Plan 1. Multiple open wounds of face, subsequent encounter 2. Excoriation (skin-picking) disorder 3. Moderate dementia with other behavioral disturbance, unspecified dementia type (CMS-HCC) I'm going to d/c prn hydroxyzine 25 mg at HS and make it routine. I will also try to put gloves on her at HS so she can't pick at face while sleeping. Continue other orders as before. All medications reviewed and are medically necessary. ELECTRONICALLY SIGNED BY: Sylvain Gonzalez DO documented in this encounter [facility] 09-17-2024 History of Present illness Narrative Patient Name: Alyce David Date of : 1955 Date of Service: 09/17/2024 Facility: [facility] Type of Visit: Subsequent Visit Subjective Alyce David is a 68 y.o. female seen today at half-way facility for monthly visit. Alyce went to the physical medicine specialist appointment today and came back with an order for hydroxyzine 25 mg at HS for her itching. She continues to scratch at her face and has open areas. She is wanting to smoke and was told that she didn't have a vape but another nurse did check and she does have a vape. She has no other concerns except wanting to smoke. Allergies: Amlodipine Code Status: FULL CODE Wt 83 kg (183 lb) BMI 32.42 kg/m Physical Exam Vitals reviewed. Constitutional: General: She is not in acute distress. Comments: She was picking at her face during the visit. HENT: Head: Normocephalic. Cardiovascular: Rate and Rhythm: Normal rate and regular rhythm. Pulses: Normal pulses. Heart sounds: Murmur heard. Pulmonary: Effort: Pulmonary effort is normal. No respiratory distress. Breath sounds: Normal breath sounds. No wheezing, rhonchi or rales. Abdominal: General: Bowel sounds are normal. Palpations: Abdomen is soft. Tenderness: There is no abdominal tenderness. Musculoskeletal: Cervical back: Neck supple. Skin: Findings: Lesion (She has fewer scabs on her face in various stages of healing but most are healing) present. Neurological: General: No focal deficit present. Mental Status: She is alert. She is disoriented. Gait: Gait abnormal (ambulating in the unit with a 3 wheeled walker). Comments: Ambulating in unit with a walker Psychiatric: Attention and Perception: Attention normal. Mood and Affect: Mood is anxious. Speech: Speech normal. Behavior: Behavior normal. Behavior is cooperative. Thought Content: Thought content is delusional. Cognition and Memory: Cognition is impaired. Memory is impaired. She exhibits impaired recent memory and impaired remote memory. Summary / Assessment / Plan 1. Moderate dementia with other behavioral disturbance, unspecified dementia type (CMS-HCC) 2. Excoriation (skin-picking) disorder 3. Multiple open wounds of face, subsequent encounter Ok for hydroxyzine 25mg at HS for itching. We'll see how that works. She is allowed to go out to smoke at designated smoking breaks if she has a vape or cigarette to smoke. All medications reviewed and are medically necessary. ELECTRONICALLY SIGNED BY: Sylvain Gonzalez DO documented in this encounter [facility] [employer] 09-17-2024 History of Present illness Narrative Images from the original note were not included. Follow up Diagnosis: Staph Location: face Last visit: 08/23/2024 Symptoms: itchy, red, bleeding Status: patient is picking Procedure performed: Culture Date of procedure: 08/23/2024 Current treatment: Minocycline 100 mg BID x 7 days completed All pertinent medical history, medications, and allergies were reviewed. 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 Flaring today Patient counseled on prurigo nodularis. Instructed to refrain from scratching or picking itchy bumps on skin. Start Hydroxyzine. Follow up in two months, if patient not improved consider starting Nemluvio Related Medications hydrocortisone 2.5 % cream Apply thin layer to affected areas on face bid prn for flares 2. Staphylococcosis Head - Anterior (Face) Clear of signs of infection today Start Hydroxyzine 25 mg once at night as needed for itching. Plan to follow up in 2 months. hydrOXYzine HCl (Atarax) 25 MG tablet - Head - Anterior (Face) Take 1 tablet, by mouth, as needed for itching, 30 day supply. Next Visit: 2 months, follow up documented in this encounter [facility] 08-23-2024 History of Present illness Narrative Images from the original note were not included. Rash Location: face Duration: couple of weeks Severity: mild, moderate Quality: itchy, short Modifying Factors: worse with itching Associated symptoms: red, spots Current treatments: bacitracin ointment bid New patient, referred by Sylvain Gonzalez MD All pertinent medical history, medications, and allergies were reviewed. 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 Flaring today Patient counseled on prurigo nodularis. Instructed to refrain from scratching or picking itchy bumps on skin. Bacterial culture obtained today. Stop bacitracin ointment. Start hydrocortisone cream 2.5 % apply topically to face bid until resolved and start OTC Aquaphor healing ointment apply topically to face TID until resolved. Follow up as needed in 1 month if rash is still present. Copy of prescription provided to patient. hydrocortisone 2.5 % cream - Head - Anterior (Face) Apply thin layer to affected areas on face bid prn for flares 2. Impetigo Head - Anterior (Face)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 Certification: I certify the above information and transfer of Alyce David is necessary for the continuing treatment of the diagnosis listed and that she requires {Admit to Appropriate Level of Care:84809} for {GREATER/LESS:896793890} 30 days. Update Admission H&P: {CHP DME Changes in HandP:748339594} PHYSICIAN SIGNATURE: {Esignature:342170902} documented in this encounter [facility] 12-13-2023 Note PROCEDURE: CT HEAD W O CONTRAST CLINICAL INFORMATION:Altered mental status COMPARISON: No prior study. TECHNIQUE: 5 mm axial imaging through the head without IV contrast. All CT scans at this facility use dose modulation, iterative reconstruction, and/or weight based dosing when appropriate to reduce the radiation dose to as low as reasonably achievable. FINDINGS: Mild scattered white matter hypodensities are noted. No ventriculomegaly. No midline shift or mass effect. No acute intracranial hemorrhage. No intracranial collection. Hutchinson-white differentiation is unremarkable. The posterior fossa is unremarkable. The craniocervical junction is unremarkable. No acute bony abnormality. The paranasal sinuses are clear. The mastoid air cells are clear. The orbits are unremarkable. IMPRESSION: 1. No acute intracranial hemorrhage This report has been created using voice recognition software. It may contain minor errors which are inherent in voice recognition technology. Interpreted by: Nimo Smith MD Signed by: Nimo Smith MD 12/13/23 Final result [facility] 12-13-2023 Note PROCEDURE: XR CHEST PORTABLE CLINICAL INFORMATION: Shortness of breath COMPARISON: No prior study. TECHNIQUE: Single frontal view of the chest performed. FINDINGS: No focal pulmonary consolidation. Cardiac silhouette is mildly enlarged. No pleural effusion. No pneumothorax. No acute bony abnormality. IMPRESSION: 1. No acute cardiopulmonary finding.. This report has been created using voice recognition software. It may contain minor errors which are inherent in voice recognition technology. Interpreted by: Nimo Smith MD Signed by: Nimo Smith MD 12/13/23 Final result [facility] 12-13-2023 Note PROCEDURE: CT HEAD W O CONTRAST CLINICAL INFORMATION:Altered mental status COMPARISON: No prior study. TECHNIQUE: 5 mm axial imaging through the head without IV contrast. All CT scans at this facility use dose modulation, iterative reconstruction, and/or weight based dosing when appropriate to reduce the radiation dose to as low as reasonably achievable. FINDINGS: Mild scattered white matter hypodensities are noted. No ventriculomegaly. No midline shift or mass effect. No acute intracranial hemorrhage. No intracranial collection. Hutchinson-white differentiation is unremarkable. The posterior fossa is unremarkable. The craniocervical junction is unremarkable. No acute bony abnormality. The paranasal sinuses are clear. The mastoid air cells are clear. The orbits are unremarkable. [facility] 12-13-2023 History of Present illness Narrative Pt refused blood gas at this time. documented in this encounter [facility] 12-13-2023 Note PROCEDURE: XR CHEST PORTABLE CLINICAL INFORMATION: Shortness of breath COMPARISON: No prior study. TECHNIQUE: Single frontal view of the chest performed. FINDINGS: No focal pulmonary consolidation. Cardiac silhouette is mildly enlarged. No pleural effusion. No pneumothorax. No acute bony abnormality. [facility] 08-20-2023 Evaluation note Encounter Date Diagnosis Assessment Notes Jul, Injury of great toe, right, sequela (ICD-10 - S99.921S) Drink plenty fluids, get plenty of rest. Continue home medications as prescribed. Take the cephalexin as prescribed until gone. Apply antibiotic ointment and a clean dressing daily. Soak your foot in warm soapy water or Epsom salt at least once a day. Call Dr. Sam, piledriver carpenter in [place] for an appointment to be seen as soon as possible. Jul, Local infection of the skin and subcutaneous tissue, unspecified (ICD-10 - L08.9) [place] Other 04-28-2022 Hospital Discharge instructions Patient Education [...] complications. Follow these instructions at home: Take ruot-yzw-[id number] and prescription medicines only as told by [...] 07/06/2007 Document Revised: 06/19/2018 Document Reviewed: 08/08/2017 [employer] Patient Education 2020 [employer] Follow Up Care 10/18/2021 08:56:34 With:Rayo CIFUENTES, LOYDA Aparicio, URO Address: When: only if needed [facility] 04-12-2022 NoteHNO ID: [id number] Author: Carl Patel MD Service: ? Author [...] hemoglobin ranging from 9?10 g/dL noted during [facility] hospitalization (presented with proximal muscle weakness, urinary [...] is itching. She has not seen a physical medicine specialist. She is here to follow-up with a [...] are from cancer. She lives alone in [place], [place] but now has her son for [...] neurologist to complete the work-up. Referral to physical medicine specialist for inflammatory skin rash. XR chest was notable for mild diffuse interstitial infiltrates. Cough is improving. If it worsens, will consider CT chest in the future. Follow-up in 4 weeks with repeat labs. Carl Patel MD I spent a total of 25 minutes on the date of the service which included preparing to see the patient, [id number] patient care, completing clinical documentation, obtaining and/or reviewing separately obtained history, performing a medically appropriate examination, counseling and educating the patient/family/caregiver, ordering medications, tests, or procedures, independently interpreting results (not separately reported) and communicating results to the patient/family/caregiver.[facility]04-12-2022 Miscellaneous Notes* Addendum Note - Carl Patel MD - 10/30/2021 12:21 PM EDT Addended by: CARL PATEL on: 10/30/2021 12:21 PM Modules accepted: [facility]* Maricarmen Kebede MA - 10/30/2021 11:02 AM EDT Patient was recently in the [facility] due to Anemia. Maricarmen Gomez MA [facility] History of Present illness Narrative* Carl Patel [...] ranging from 9 10 g/dL noted during [facility] hospitalization (presented with proximal muscle weakness, urinary [...] is itching. She has not seen a physical medicine specialist. She is here to follow-up with a [...] are from cancer. She lives alone in [place], [place] but now has her son for [...] neurologist to complete the work-up. Referral to physical medicine specialist for inflammatory skin rash. XR chest was notable for mild diffuse interstitial infiltrates. Cough is improving. If it worsens, will consider CT chest in the future. Follow-up in 4 weeks with repeat labs. Carl Patel MD I spent a total of 25 minutes on the date of the service which included preparing to see the patient, [id number] patient care, completing clinical documentation, obtaining and/or reviewing separately obtained history, performing a medically appropriate examination, counseling and educating the pat ient/family/caregiver, ordering medications, tests, or procedures, independently interpreting results (not separately reported) and communicating results to the patient/family/caregiver. [facility]22 NoteHNO ID: [id number] Author: RT Brian(R) Service: ? Author Type: [...] BY: RT Brian(R) October 16, 2021 12:02 [facility]03-29-2022 NoteHNO ID: [id number] Author: Carl Patel MD Service: ? Author [...] evaluation of anemia. Briefly, she presented to [facility] ER with proximal muscle weakness and inability [...] are from cancer. She lives alone in [place], [place] but now has her son for [...] which included preparing to see the patient, [id number] patient care, completing clinical documentation, obtaining and/or reviewing separately obtained history, performing a medically anisha (more content not included)...[facility]03-29-2022 History of Present illness Narrative* Jeanna Anna, RT(R) - 10/16/2021 12:00 PM EDT Radiology Service Progress Note PATIENT NAME: Alyce David DATE OF SERVICE: October 16, 2021 TIME: 12:02 PM PATIENT IDENTITY VERIFICATION COMPLETED USING TWO (2) IDENTIFIERS: Name and Date of confirmedby patient verbally. FALL SCREENING: Has the patient [...] BY: RT Brian(R) October 16, 2021 12:02 PM documented in this [facility] History of Present illness Narrative* Carl Patel [...] evaluation of anemia. Briefly, she presented to [facility] with proximal muscle weakness and inability [...] are from cancer. She lives alone in [place], [place] but now has her son for [...] which included preparing to see the patient, [id number] patient care, completing clinical documentation, obtaining and/or reviewing separately obtained history, performing a medically appropriate examination, counseling and educating the pat ient/family/caregiver, ordering medications, tests, or procedures, independently interpreting results (not separately reported) and communicating results to the patient/family/caregiver. [facility] Note [id number]:[address] [place] [address] 10-01-2021 [id number]:[address] [place], [place] 5727208-04-2020 NoteEducation Materials Hematology Hyponatremia Hyponatremia is when [...] diarrhea. ? Have metabolic conditions, such as [place] disease or SIADH. ? Take certain medicines [...] 06/27/2003 Document Revised: 12/12/2016 Document Reviewed: 07/27/2015 [employer] Patient Education ? 2019 [employer] Orthopedics Knee Sprain, Adult A knee sprain [...] the splint or b (more content not included)...[facility] Evaluation + Plan note No data available for this section [facility] Evaluation note* Diagnosis Normocytic anemia- Primary Anemia, unspecified Cough Prolonged pt (prothrombin time) Abnormal coagulation profile [facility] Diagnosis Normocytic anemia- Primary Anemia, unspecified Rash and nonspecific skin eruption Rash and other nonspecific skin eruption Leukocytosis, unspecified type documented in this encounter [facility] note* Diagnosis Onset Date Resolution Status [facility] Work Phone: Evaluation note* Diagnosis Homelessness- Primary Lack of housing documented in this encounter [facility] note* Diagnosis Cough documented in this encounter [facility] note* Diagnosis Moderate dementia with other behavioral disturbance, unspecified dementia type (CMS-HCC)- Primary Other abnormalities of gait and mobility Multiple open wounds of face, subsequent encounter Muscle weakness (generalized) [facility] Diagnosis Prurigo nodularis- Primary Lichenification and lichen simplex chronicus Impetigo documented in this encounter [facility]* Diagnosis Moderate dementia with other behavioral disturbance, unspecified dementia type (CMS-HCC)- Primary Excoriation (skin-picking) disorder Multiple open wounds of face, subsequent encounter [facility] Diagnosis Acute cystitis without hematuria- Primary Essential hypertension Unspecified essential hypertension Dementia with other behavioral disturbance, unspecified dementia severity, unspecified dementia type (CMS-HCC) Open dislocation of great toe of right foot, subsequent encounter Spontaneous rupture of extensor tendons, right ankle and foot [facility] Diagnosis Moderate dementia with other behavioral disturbance, unspecified dementia type (CMS-HCC)- Primary Dry gangrene (CMS-HCC) Spontaneous rupture of extensor tendons, right ankle and foot Acute cystitis without hematuria Open wound of right great toe without damage to nail, subsequent encounter Muscle weakness (generalized) Other abnormalities of gait and mobility Hyponatremia Hyposmolality and/or hyponatremia Anemia, unspecified type [facility] Diagnosis Multiple open wounds of face, initial encounter- Primary Moderate dementia with other behavioral disturbance, unspecified dementia type (CMS-HCC) Obsessive-compulsive disorder, unspecified type [facility]* Diagnosis Moderate dementia with other behavioral disturbance, unspecified dementia type (CMS-HCC)- Primary Cellulitis of great toe of right foot Onychomycosis of right great toe [facility]* Diagnosis Excoriation (skin-picking) disorder- Primary Moderate dementia with other behavioral disturbance, unspecified dementia type (CMS-HCC) Essential hypertension Unspecified essential hypertension [facility] Diagnosis Multiple open wounds of face, subsequent encounter- Primary Moderate dementia with other behavioral disturbance, unspecified dementia type (CMS-HCC) Excoriation (skin-picking) disorder [facility]* Diagnosis Prurigo nodularis- Primary Lichenification and lichen simplex chronicus Staphylococcosis Unspecified staphylococcus infection in conditions classified elsewhere and of unspecified site documented [facility] encounter [facility]* Diagnosis Multiple open wounds of face, subsequent encounter- Primary Excoriation (skin-picking) disorder Moderate dementia with other behavioral disturbance, unspecified dementia type ([facility]-HCC) [facility] Diagnosis Multiple open wounds of face, subsequent encounter- Primary Pica Anemia, unspecified type [facility] Diagnosis Moderate dementia with other behavioral disturbance, unspecified dementia type (CMS-HCC)- Primary Multiple open wounds of face, subsequent encounter Excoriation (skin-picking) disorder [facility]* Diagnosis Moderate dementia with other behavioral disturbance, unspecified dementia type (CMS-HCC)- Primary Anemia, unspecified type Hyponatremia Hyposmolality and/or hyponatremia Excoriation (skin-picking) disorder Multiple open wounds of face, subsequent encounter [facility] Diagnosis Type 2 diabetes mellitus without complication, without long-term current use of insulin (CMS-HCC)- Primary Multiple open wounds of face, subsequent encounter Moderate dementia with other behavioral disturbance, unspecified dementia type (CMS-HCC) Thrombocytopenia Unspecified thrombocytopenia [facility] Diagnosis Excoriation (skin-picking) disorder- Primary Essential hypertension Unspecified essential hypertension Multiple open wounds of face, subsequent encounter Moderate dementia with other behavioral disturbance, unspecified dementia type (CMS-HCC) [facility] N[facility] - Reported* Type Description Date Medical History hypertension Medical History hypercholesterolemia Medical History anemia [place] Other InstructionsNot on filedocumented in this encounter [facility] filedocumented in this [facility] on filedocumented in this encounter [facility] on filedocumented in this encounter [facility] filedocumented in this encounter [facility] Summary Purpose Family History No Family History Records Found Relationship Condition Age at Onset Recorded Date/T robinson Not Specified No pertinent family history Unknown Advance Directives No Advanced Directives Records Found Advance Directive Response Recorded Date/ Time Advance Directives No March 13, 2020 2:41pm Date Activated Date Inactivated Comments 10/20/2021 8:17 PM 10/21/2021 2:07 PM Date Activated Date Inactivated Comments 01/21/2024 7:22 PM 01/31/2024 2:15 PM Date Activated Date Inactivated Comments 12/26/2023 10:06 AM 12/30/2023 7:25 PM Reason for Referral Specialty Diagnoses / Procedures Referred By Contac t Referred To Contact Dermatology Diagnoses Normocytic anemia Rash and nonspecific skin eruption Procedures CONSULT TO DERMATOLOGY OFFICE/OUTPATIENT [facility] 60-74 MINUTES Carl Patel MD [address] [place] [address] [place] [address] Referral ID Status Reason Start Date Expiration Date Visits Requested Visits Authorized [id number] Pending Review PCP Requested Referral 10/30/2021 10/30/2022 1 1 Chief Complaint and Reason for Visit Chief Complaint [facility] Reason for Visit Depression Additional Source Comments INFORMATION SOURCE (unrecogn ized section and content) DATE CREATED AUTHOR 11/07/2020 [facility] DATE CREATED AUTHOR AUTHOR'S ORGANIZ ATION 11/11/2021 [facility] DATE CREATED AUTHOR AUTHOR'S ORGANIZ ATION 11/18/2021 [facility] DATE CREATED AUTHOR AUTHOR'S ORGANIZ ATION 08/29/2022 [facility] DATE CREATED AUTHOR AUTHOR'S ORGANIZ ATION 12/15/2023 [facility] DATE CREATED AUTHOR AUTHOR'S ORGANIZ ATION 12/30/2023 [facility] DATE CREATED AUTHOR AUTHOR'S ORGANIZ ATION 04/16/2024 [facility] DATE CREATED AUTHOR AUTHOR'S ORGANIZ ATION 09/19/2024 [facility] EPIC DATE CREATED AUTHOR AUTHOR'S ORGANIZ ATION 03/13/2025 [facility] pital Source Comments (unrecognize d section and content) In the event this informatio n is protected by the Federal Confidentiality of Alcohol and Drug Abuse Patient Records regulations: The Federal rules restrict any use of the information to criminally investigate or prosecute any alcohol or drug abuse patient.[facility] the event this information is protected by the Federal Confidentiality of Alcohol and Drug Abuse Patient Records regulations: The Federal rules restrict any use of the information to criminally investigate or prosecute any alcohol or drug abuse patient.[facility] CampusIn the event this information is protected by the Federal Confidentiality of Alcohol and Drug Abuse Patient Records regulations: The Federal rules restrict any use of the information to criminally investigate or prosecute any alcohol or drug abuse patient.[facility] CampusIn the event this information is protected by the Federal Confidentiality of Alcohol and Drug Abuse Patient Records regulations: The Federal rules restrict any use of the information to criminally investigate or prosecute any alcohol or drug abuse patient.[facility] Reason for Visit (unrecogniz ed section and content) Reason Comments Anemia New patient consult Reason Comments Anemia 2 week follow up Reason Comments Altered Mental Status Reason Comments Radio Gen RMP Reason Comments Rash Specialty Diagnoses / Procedures Referred By Magy miranda Referred To Contact Dermatology Diagnoses rash on face Procedures office visit Sylvain Gonzalez MD [address], [place] [address] Phone: tel: fax: Kalen Donohue, ORAL THERAPIST-EXERCISE PHYSIOLOGIST CERTIFIED [address] [place] [address] Phone: tel: fax: Referral ID Status Reason Start Date Expiration Date Visits Re quested Visits Authorized [id number] Closed 07/01/2024 12/28/2024 1 1 Reason Comments Follow-up Care Teams (unrecognized sec tion and content) Team Status: Active Member Role Status Dates Aysha Clements MD Primary Care Provider Active Remy Motley DO Emergency Provider Active Tye Subramanian MD Admit Provider, Attending Provider Active Team Status: Active Member Role Status Dates Aysha Clements MD Primary Care Provider Active Pastry Assistant Relationship Specialty Start Date End Date Sylvain Gonzalez DO [address], [place] [address] PCP - General Family Medicine 04/13/24 Pastry Assistant Relationship Specialty Start Date End Date Sylvain Gonzalez DO [address], [place] [address] PCP - General Family Medicine 04/13/24 Pastry Assistant Relationship Specialty Start Date End Date [facility] [address] [place] PCP - General Family Medicine 12/24/23 Pastry Assistant Relationship Specialty Start Date End Date [facility] [address] [place] PCP - General Family Medicine 12/24/23 Pastry Assistant Relationship Specialty Start Date End Date [facility] [address] [place] PCP - General Family Medicine 12/24/23 Pastry Assistant Relationship Specialty Start Date End Date Sylvain Gonzalez DO [address] [place] [address] PCP - General Family Medicine 04/13/24 Pastry Assistant Relationship Specialty Start Date End Date Sylvain Gonzalez DO [address], [place] [address] PCP - General Family Medicine 04/13/24 Pastry Assistant Relationship Specialty Start Date End Date Sylvain Gonzalez DO [address] [place] [address] PCP - General Family Medicine 04/13/24 Goals (unrecognized section and content) Goals may [...] BE BASED ON THE PRIMARY CLINICAL RECORDS. [facility]. provides no warranty or guarantee of the accuracy or completeness of information in this document.
[2025-04-13 14:16] LABS: Hematocrit 34.0 % (36.0-48.0); Hemoglobin 10.6 g/dL (12.0-16.0); Immature Granulocytes Abs Auto 0.02 10^3/uL (0.00-0.03); Immature Granulocytes Pct Auto 0.3 % (0.0-0.5); Lymphocytes Absolute Auto 1.6 10^3/uL (1.2-3.8); Mean Corpuscular HGB Conc 31.2 g/dL (29.9-35.2); Mean Corpuscular Hemoglobin 29.0 pg (26.7-34.0); Mean Corpuscular Volume 92.9 fL (81.0-99.0); Platelet Count 123 10^3/uL (150-450); Red Blood Count 3.66 10^6/uL (4.20-5.40); White Blood Count 5.7 10^3/uL (4.0-11.0)
[2025-04-13 14:54] LABS: Anion Gap 15.0; Blood Urea Nitrogen 21.0 mg/dL (7.0-18.0); Calcium 8.5 mg/dL (8.5-10.1); Carbon Dioxide 24.1 mmol/L (21.0-32.0); Chloride 107 mmol/L (98-107); Estimated GFR (African America >60 (>=60 mL/min/1.73m^2); Estimated GFR (Non-African Ame >60 (>=60 mL/min/1.73m^2); Glucose 197 mg/dL (74-106); Potassium 4.1 mmol/L (3.5-5.1); Sodium 142 mmol/L (136-145)
== END 2025-04-13 13:50 | disposition home or self-care (01) ==
LOC: LAB 13:49
PROVIDERS: Visit Provider Family Medicine
DX: E11.9 Type 2 diabetes mellitus without complications (principal)
CPT/HCPCS: 36415; 80048; 85025